=== PATIENT | male | born 1935 | race Caucasian/White ===

== ENCOUNTER → 2016-05-23 | Outpatient (CLI) | payer MEDICARE ==
[~2016-05-23] VITALS: Ht 177.8 cm; Wt 96.1 kg
[~2016-05-23] MED LIST: ASPCH81X PO; ATOR-22 PO; CLIN1CAP51 PO; ENOX40IN SQ; FRS/40 PO; MULT-190 PO; MULT-884 PO; OXYC-57 PO; POTA20TA16 PO; PRED20TA PO; SOTA80TA PO; TRAM-10 PO; WARF2TAB PO; WARF2TAB8 PO; [UNRECOGNIZED DRUG - CODE] INJ
[2016-05-23 13:37] VITALS: BP 130/81; PULSE 87; BMI 32.3
[2016-05-23 13:39] VITALS: BP 132/79; PULSE 56; Ht 177.8 cm; Wt 96.1 kg
== END | disposition home or self-care (01) ==
LOC: C.NEUR 12:40
PROVIDERS: ATTEND Internal Medicine Pulmonary Disease
DX: R91.8 Other nonspecific abnormal finding of lung field (principal); J98.4 Other disorders of lung; G47.30 Sleep apnea, unspecified

== ENCOUNTER → 2016-05-30 | Outpatient (CLI) | payer MEDICARE ==
[~2016-05-30] MED LIST changes: -CLIN1CAP51 PO; -PRED20TA PO; -TRAM-10 PO
[2016-05-30 17:30] LABS: BASO % 0.4 %; BASO ABS # 0.03 K/uL (0-0.2); COMPLETE YES; EOS % 7.9 %; HEMATOCRIT 40.5 % (42-52); IG% 0.1 %; LYMPH % 20.8 %; LYMPH ABS # 1.65 K/uL (1.2-3.4); MEAN CELL VOLUME 91.4 fL (80-100); MEAN CORPUSCULAR HEMOGLOBIN 32.3 pg (25-34); MEAN CORPUSCULAR HGB CONC 35.3 g/dl (32-36); MEAN PLATELET VOLUME 10.6 fL (7.4-10.4); MONO % 21.1 %; NEUT % 49.7 %; PLATELET COUNT 197 K/uL (130-400); RED BLOOD COUNT 4.43 M/uL (4.7-6.1); WHITE BLOOD COUNT 7.93 K/uL (4.8-10.8)
[2016-05-30 17:47] LABS: BLOOD UREA NITROGEN 26 mg/dl (7-18); BUN/CREATININE RATIO 18.4 (10-20); CALCIUM 8.9 mg/dl (8.5-10.1); CARBON DIOXIDE 29 mmol/L (21-32); CHLORIDE 102 mmol/L (98-107); GLUCOSE 99 mg/dl (70-99); POTASSIUM 3.9 mmol/L (3.5-5.1); SODIUM 141 mmol/L (136-145)
== END | disposition home or self-care (01) ==
LOC: C.LAB 16:45
PROVIDERS: ATTEND Surgery
DX: K40.90 Unilateral inguinal hernia, without obstruction or gangrene, not specified as recurrent (principal); Z01.812 Encounter for preprocedural laboratory examination

== ENCOUNTER → 2016-06-08 | Day surgery (SDC) | payer MEDICARE ==
[~2016-06-08] VITALS: Ht 177.8 cm; Wt 94.6 kg
[~2016-06-08] MED LIST changes: +ATROPINE SULFATE 0.1 MG/ML 5ML SYR IV PRN; +BACITRACIN 50000 UNIT VIAL IR ONE; +BUPIVACAINE 0.5 % 5 MG/1 ML MPF 30ML VIAL INJ ONE; +DEXAMETHASONE SOD INJ 4 MG/ML VIAL ONE; +EpHEDrine SULFATE INJ 50 MG/ML AMP IV PRN; +FENTANYL CITRATE INJ 50 MCG/1 ML 2 ML VIAL IV PRN; +FENTANYL CITRATE INJ 50 MCG/1 ML 2 ML VIAL ONE; +FLUMAZENIL 0.1 MG/1 ML 10 ML VIAL IV PRN; +GLYCOPYRROLATE INJ 0.2 MG/ML VIAL ONE; +HYDROmorphone INJ 2 MG/ML SYR/VIAL IV PRN; +LABETALOL HCL IV 5 MG/ML 20ML IV PRN; +LACTATED RINGER'S 1000ML 1,000 ML IV SCH; +LIDOCAINE HCL 2% 2 ML VIAL (20MG/ML) ONE; +MEPERIDINE HCL 25 MG/ML CARP IV PRN; +MoRPHine SULFATE 4 MG/ML 1 ML CARP\\VIAL IV PRN; +NALOXONE HCL 0.4 MG/1 ML VIAL/CARP IV PRN; +NEOSTIGMINE METHYLSULFATE 5 MG/5 ML SYR ONE; +ONDANSETRON INJ 2 MG/ML 2 ML VIAL IV PRN; +ONDANSETRON INJ 2 MG/ML 2 ML VIAL ONE; +OXYCODONE/ACETAMINOPHEN 5-325 TAB PO PRN; +PHENYLEPHRINE 100MCG/ML 5ML SYR IV PRN; +PROPOFOL IV EMULSION 10 MG/ML 20 ML VIAL IV ONE; +ROCURONIUM BROMIDE 10 MG/ML 5 ML VIAL ONE; +SODIUM CHLORIDE 0.9% INJ 10 ML VIAL ONE; +VANCOMYCIN INJ 1,450 MG in SODIUM CHLORIDE 0.9% 500ML 500 ML IV SCH
[2016-06-08 12:33] VITALS: BP 159/73; PULSE 54; TEMP 36.4; O2SAT 99; Ht 177.8 cm; Wt 94.6 kg
--- NOTE | 2016-06-08 13:18 | History & Physical Bridge Note ---
H&P Re-Evaluation Bridge Note: I have examined the patient, reviewed the History & Physical and in the interval since the performance of the History & Physical I have noted the following changes of clinical significance: No changes notedpt marked bedside ecchymosis both sides lower abd from lovenox injection
--- NOTE | 2016-06-08 13:21 | Discharge Instructions ---
Discharge Instructions Visit Reason for Visit: Left Inguinal Hernia Discharge Discharge Diagnosis / Problem: repair of hernia Discharge Goals Goal(s): Decrease discomfort Activity Recommendations Activity Limitations: per Instructions/Follow-up section Lifting Limitations: no more than 10 pounds Shower/Bathe: tomorrow Driving or Machine Use: resume 3 days after discharge Anesthesia . Post Anesthesia Instructions: If you have had General Anesthesia or IV Sedation: * Do not drive today. * Resume driving when surgeon permits. * Do not make important decisions or sign legal documents today. * Call surgeon for: 1. Temperature elevations greater than 101 degrees F. 2. Uncontrollable pain. 3. Excessive bleeding. 4. Persistent nausea and vomiting. 5. Medication intolerance (nausea, vomiting or rash). * For nausea and vomiting use only clear liquids such as: tea, soda, bouillon until nausea subsides, then gradually increase diet as tolerated. * If you have any concerns or questions, call your surgeon's office. If physician is unavailable and it is an emergency, call 911 or go to the nearest emergency room. . Instructions / Follow-Up Instructions / Follow-Up Dr. Doty in 1 week, call [phone] if you have any questions or need to schedule appt Ice left groin off and on alternating every 20 minutes until bedtime Diet Recommendations Recommended Home Diet: no limitations Pending Studies Studies pending at discharge: no Medical Emergencies . Who to Call and When: Medical Emergencies: If at any time you feel your situation is an emergency, please call 911 immediately. . Non-Emergent Contact Non-Emergency issues call your: Surgeon Call Non-Emergent contact if: you have a fever, temperature is above 101.5, your pain is worsening, wound has increased redness, wound has increased pain . . "Provider Documentation" section prepared by Spike Bowen.
[2016-06-08 13:23] LABS: INR 1.1 (0.9-1.1); PARTIAL THROMBOPLASTIN RATIO 0.9; PROTHROMBIN TIME (PATIENT) 11.4 SECONDS (9.0-12.0)
--- NOTE | 2016-06-08 15:03 | [facility] Post Operative Brief Note ---
Immediate Operative Summary Operative Date Jun 08, 2016. 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 Jose Doty Full Stack Engineer Surgeon(s) Spike Bowen PA-C Estimated Blood Loss 5 ml Findings large sliding ind hernia and lipoma cord Specimens Permanent A. Left Lipoma
--- NOTE | 2016-06-08 15:30 | OPERATIVE REPORT ---
DATE OF OPERATION: 06/08/2016 SURGEON: Dr. Doty. WINDING RACK OPERATOR: Srikanth Bowen PA-C. PREOPERATIVE DIAGNOSIS: Large left inguinal hernia. POSTOPERATIVE DIAGNOSIS: Large sliding indirect hernia and lipoma of the cord. PROCEDURES: Repair with interposition tension free Marlex mesh and excision lipoma of the cord. SUMMARY: The patient was brought into the operating room theater. The left lower quadrant was prepped with Betadine scrub and solution and properly draped. We used 0.5% Marcaine without epinephrine as a preemptive local analgesia 2 fingerbreadths medial anterior superior iliac crest to the subfascial and external oblique. An incision was made parallel to the inguinal ligament, deepened through subcutaneous tissue. The external oblique fascia was exposed. More local was used underneath the external oblique, which was opened along with the cords of its fibers along to the external ring. The patient had a very significantly displaced left external ring, which was pretty much under tension from the contents. The nerves identified and avoided. The inferior nerve was placed into the lower aspect of the transversalis of the external oblique fascia underneath hemostats to superior which was a fine filamentous type of nerve, maybe collateral. The anvil angle was then divided out because it was placed under tension. The cord and structures were then elevated. I was able to identify, the patient had a very large indirect hernia. We actually opened the sac and found the sigmoid colon into the hernia. We tried to see if this was free from the contents, but it was a sliding component, therefore, we closed the peritoneum with a chromic suture and freed up this hernia returned preperitoneally by closing the internal ring with 3-0 interrupted silk suture. The patient also had a lipoma of the cord which we freed it from the cord structure, resected at its base, ligated with 2-0 silk. The internal ring was closed loosely with some 3-0 interrupted silk suture to keep the contents out of the way as we were able then to bring in a sheet of Marlex mesh on laid it with #2-0 Prolene to the symphysis pubis, shelving portion of the inguinal ligament above the conjoined tendon to reconstruct the internal ring that could only accommodate the tip of a hemostat. The nerve was placed along the cord structure. The area was then checked for hemostasis and appeared satisfactory. Then we closed the external oblique fascia on top of the cord and the mesh with interrupted 3-0 silk. The external ring was a little bit wide, the tissue was frayed as we said before and that should be kept in mind in the future if someone examines that area they feel that this may be a hernia which indeed is just a wide ring. Subcutaneous tissue was brought back together with 2-0 Dexon and diamond for skin edges. Dressing was applied. The procedure was tolerated well by the patient. Estimated blood loss approximately 5 mL. The patient was taken to the recovery room in good condition. I attest to the content of the Intraoperative Record and any orders documented therein. Any exceptio ns are noted below.
--- NOTE | 2016-06-08 15:46 | Anesthesiology Progress Note ---
Anesthesia Post Op Note Date & Time Jun 08, 2016 at 15:46 Vital Signs Pain Intensity: 2 Vital Signs Past 12 Hours Date Time Temp Pulse Resp B/P Pulse Ox O2 Delivery O2 Flow Rate FiO2 06/08/16 15:45 36.2 68 16 167/83 93 Room Air 06/08/16 15:35 71 16 147/67 93 Room Air 06/08/16 15:25 68 16 158/65 100 Mask 10 06/08/16 15:15 69 16 160/69 100 Mask 10 06/08/16 15:09 36.6 75 16 171/91 100 Mask 10 06/08/16 12:33 36.4 54 20 159/73 99 Room Air Notes Mental Status: alert / awake / arousable, participated in evaluation Pt Amnestic to Procedure: Yes Nausea / Vomiting: adequately controlled Pain: adequately controlled Airway Patency, RR, SpO2: stable & adequate BP & HR: stable & adequate Hydration State: stable & adequate Anesthetic Complications: no major complications apparent
[2016-06-08 15:55] VITALS: BP 150/73; PULSE 63; TEMP 37.1; O2SAT 96
[2016-06-08 16:25] VITALS: BP 128/40; PULSE 73; O2SAT 96
[2016-06-08 16:55] VITALS: BP 147/69; PULSE 72; TEMP 36.1; O2SAT 96
== END | disposition home or self-care (01) ==
LOC: C.ACU 12:22
PROVIDERS: ATTEND Surgery
DX: K40.31 Unilateral inguinal hernia, with obstruction, without gangrene, recurrent (principal); D17.6 Benign lipomatous neoplasm of spermatic cord; I25.10 Atherosclerotic heart disease of native coronary artery without angina pectoris; E78.00 Pure hypercholesterolemia, unspecified; I35.9 Nonrheumatic aortic valve disorder, unspecified; I48.92 Unspecified atrial flutter; N40.1 Benign prostatic hyperplasia with lower urinary tract symptoms; N13.8 Other obstructive and reflux uropathy; J44.9 Chronic obstructive pulmonary disease, unspecified; G47.30 Sleep apnea, unspecified; Z98.890 Other specified postprocedural states; Z95.2 Presence of prosthetic heart valve; Z82.49 Family history of ischemic heart disease and other diseases of the circulatory system; Z79.01 Long term (current) use of anticoagulants

== ENCOUNTER 2016-06-12 09:05 | Emergency (ER) | payer MEDICARE ==
[~2016-06-12] VITALS: Ht 177.8 cm; Wt 79.0 kg
[~2016-06-12 09:05] MED LIST changes: -ASPCH81X PO; -ATOR-22 PO; -ATROPINE SULFATE 0.1 MG/ML 5ML SYR IV PRN; -BACITRACIN 50000 UNIT VIAL IR ONE; -BUPIVACAINE 0.5 % 5 MG/1 ML MPF 30ML VIAL INJ ONE; -DEXAMETHASONE SOD INJ 4 MG/ML VIAL ONE; -EpHEDrine SULFATE INJ 50 MG/ML AMP IV PRN; -FENTANYL CITRATE INJ 50 MCG/1 ML 2 ML VIAL IV PRN; -FENTANYL CITRATE INJ 50 MCG/1 ML 2 ML VIAL ONE; -FLUMAZENIL 0.1 MG/1 ML 10 ML VIAL IV PRN; -FRS/40 PO; -GLYCOPYRROLATE INJ 0.2 MG/ML VIAL ONE; -HYDROmorphone INJ 2 MG/ML SYR/VIAL IV PRN; -LABETALOL HCL IV 5 MG/ML 20ML IV PRN; -LACTATED RINGER'S 1000ML 1,000 ML IV SCH; -LIDOCAINE HCL 2% 2 ML VIAL (20MG/ML) ONE; -MEPERIDINE HCL 25 MG/ML CARP IV PRN; -MULT-190 PO; -MoRPHine SULFATE 4 MG/ML 1 ML CARP\\VIAL IV PRN; -NALOXONE HCL 0.4 MG/1 ML VIAL/CARP IV PRN; -NEOSTIGMINE METHYLSULFATE 5 MG/5 ML SYR ONE; -ONDANSETRON INJ 2 MG/ML 2 ML VIAL IV PRN; -ONDANSETRON INJ 2 MG/ML 2 ML VIAL ONE; -OXYCODONE/ACETAMINOPHEN 5-325 TAB PO PRN; -PHENYLEPHRINE 100MCG/ML 5ML SYR IV PRN; -POTA20TA16 PO; -PROPOFOL IV EMULSION 10 MG/ML 20 ML VIAL IV ONE; -ROCURONIUM BROMIDE 10 MG/ML 5 ML VIAL ONE; -SODIUM CHLORIDE 0.9% INJ 10 ML VIAL ONE; -VANCOMYCIN INJ 1,450 MG in SODIUM CHLORIDE 0.9% 500ML 500 ML IV SCH; -WARF2TAB8 PO; -[UNRECOGNIZED DRUG - CODE] INJ
[2016-06-12 09:19] VITALS: TEMP 36.6; Ht 177.8 cm; Wt 79.0 kg
[2016-06-12] MEDS ORDERED: WARF2TAB8 PO (09:19)
[2016-06-12] MEDS ORDERED: HYDROmorphone INJ 1 MG/ML SYR IV STA ×3 (09:52→13:30)
[2016-06-12] MEDS ORDERED: SODIUM CHLORIDE 0.9% 500ML 500 ML IV STA (09:52)
--- NOTE | 2016-06-12 09:58 | EMERGENCY ROOM VISIT NOTE ---
History Report prepared by Agustin: Gregory Mancilla Under the Supervision of: Dr. Efrain Colbert M.D. First contact with patient: 09:46 Chief Complaint: ABDOMINAL PAIN Stated Complaint: PAIN Nursing Triage Summary: PT HERE VIA ALS FROM HOME WITH ABD PAIN. PT STATES INCREASED PAIN AFTER HAVING HERNIA REPAIR ON SUNDAY BY DR ROBERTSON. PT STATES TOOK OXY AT HOME PRIOR TO ARRIVAL WITH SOME RELIEF. PTS CALLED. ABD TENDER AND DISTENDED. History of Present Illness The patient is a 80 year old male who presents to the Emergency Room via ALS with complaints of severe lower abdominal pain which worsened 2 days ago. He had an inguinal hernia repair surgery 4 days ago. The patient initially had some mild pain. 2 days ago, his pain worsened and became severe. He has been taking Hydrocodone without relief. He has worsening pain with movement. The patient also complains of a swollen scrotum. He denies chest pain, shortness of breath, or any other complaints. He is on Coumadin. He has a history of A-Fib. Source of History: patient Onset: 2 days ago Position: abdomen (lower) Symptom Intensity: severe Timing: worsening Modifying Factors (Worsening): movement Associated Symptoms: No SOB, No chest pain Review of Systems See HPI for pertinent positives & negatives. A total of 10 systems reviewed and were otherwise negative. Past Medical & Surgical Medical Problems: (1) A-fib (2) CHF (congestive heart failure) (3) Dehydration (4) History of Coumadin therapy (5) Replacement of aortic valve Family History Patient reports no known family medical history. Social History Smoking Status: Never Smoker Alcohol Use: occasionally Drug Use: none Marital Status: Housing Status: lives with family Current/Historical Medications Scheduled Aspirin (Aspirin Chewable), 81 MG PO DAILY Atorvastatin (Lipitor), 20 MG PO DAILY Furosemide (Lasix), 40 MG PO DAILY Multiple Vitamin (Multi Vitamin Daily), 1 TAB PO DAILY Ocuvite Preservision (Ocuvite Preservision), 1 TAB PO DAILY Potassium Ext Rel (Klor-Con), 20 MEQ PO DAILY Ranibizumab (Lucentis), 1 DOSE INJ [id number] Sotalol Hcl (Sotalol Hcl), 0.5 TAB PO DAILY Warfarin Sod (Jantoven), 6 MG PO DAILY Scheduled PRN Oxycodone/Acetaminophen 5MG/325MG (Percocet 5MG/325MG), 1-2 TABLETS PO Q4H PRN for Pain Oxycodone/Acetaminophen 5MG/325MG (Percocet 5MG/325MG), 1-2 TABLETS PO Q4H PRN for Pain Allergies Coded Allergies: Celecoxib (Verified Allergy, Unknown, ., 06/12/16) Cyclobenzaprine (Verified Allergy, Unknown, ., 06/12/16) Penicillins (Verified Allergy, Unknown, RASH, 06/12/16) Simvastatin (Verified Adverse Reaction, Intermediate, MUSCLE PAIN, 06/12/16 ) Physical Exam Vital Signs Date Time Temp Pulse Resp B/P Pulse Ox O2 Delivery O2 Flow Rate FiO2 06/12/16 15:15 88 16 165/74 95 06/12/16 13:19 74 16 175/81 97 Room Air 06/12/16 11:21 77 18 126/63 96 Room Air 06/12/16 09:19 36.6 71 16 145/63 96 Room Air Physical Exam CONSTITUTIONAL: HEENT: No icterus, moist mucous membranes NECK: No meningismus, trachea is midline. CARDIOVASCULAR: Regular rate, normal perfusion RESPIRATORY: Unlabored breathing. Clear to auscultation. GASTROINTESTINAL: Moderate diffuse lower abdominal pain with extensive ecchymosis inferiorly. Surgical incision clean, dry, and intact, without any signs of infection. GENITOURINARY: No flank tenderness. Some edema and erythema of scrotum. MUSCULOSKELETAL: Full range of motion NEUROLOGIC: No acute gross focal deficits. PSYCHIATRIC: Normal affect SKIN: Normal for ethnicity. Medical Decision & Procedures ER Provider Diagnostic Interpretation: CT results as stated below per my review and radiologist interpretation. ABDOMEN AND PELVIS CT WITH IV AND ORAL CONTRAST CT DOSE: 977.69 mGycm HISTORY: Status post inguinal hernia repair, increasing left lower quadrant abdominal pain TECHNIQUE: Multiaxial CT images of the abdomen and pelvis were performed following the use of intravenous and oral contrast. COMPARISON STUDY: Abdomen and pelvis CT 07/22/2010. FINDINGS: Small right pleural effusion. The heart is mildly enlarged. Stable benign 4 mm pulmonary nodule within the left lower lobe. No pneumoperitoneum. No pneumatosis. No hepatic or splenic masses. The gallbladder, pancreas, spleen, left kidney are within normal limits. There are 2 cysts within the right kidney with the largest measuring 8.4 cm. Normal caliber thoracic aorta. Stable enlarged and partially calcified right retrocrural lymph node which measures 1.7 cm. Therefore, this is likely benign given the long-term stability. No mesenteric lymphadenopathy. Multiple prominent retroperitoneal lymph nodes. Dominant lymph node measures 1.9 x 1.2 cm. These are also not significant changed. Therefore, the long-term stability favors a benign process. The bladder is unremarkable. Evidence for prior right inguinal herniorrhaphy. There are surgical clips and stranding within the left inguinal region. There is also a small amount of gas and a 2 cm hyperdense focus at the mid left inguinal canal. This favors a small hematoma. Small amount of subcutaneous gas within the left lateral abdominal wall. Colonic diverticulosis. No bowel wall thickening or obstruction. Fat stranding adjacent to the proximal sigmoid colon is likely due to the hernia repair. There are no inflamed diverticula identified to suggest acute diverticulitis. Moderate stool within the rectum. Normal appendix. No bowel wall thickening or obstruction. IMPRESSION: 1. Status post recent left inguinal herniorrhaphy. Fat stranding and a small amount of gas within the left inguinal canal is likely due to the recent postoperative change. There is also a 2 cm focal hyperdense area within the mid left inguinal canal which favors a hematoma. 2. No bowel wall thickening or obstruction. 3. Colonic diverticulosis. Fat stranding adjacent to the proximal sigmoid colon is likely due to the adjacent hernia repair. There are no inflamed diverticula identified to suggest acute diverticulitis. However, if the patient symptoms continue to progress then consider repeat scanning to exclude the less likely possibility of developing acute diverticulitis. 4. Normal appendix. 5. Small right pleural effusion. 6. Stable prominent retroperitoneal lymph nodes. The longterm stability favors a benign process. Electronically signed by: Andrea Sahu M.D. 06/12/2016 1:48 PM Dictated Date/Time: 06/12/2016 1:34 PM Laboratory Results 06/12/16 10:05 Red Blood Count 4.32, Mean Corpuscular Volume 92.4, Mean Corpuscular Hemoglobin 32.2, Mean Corpuscular Hemoglobin Concent 34.8, Mean Platelet Volume 10.8, Neutrophils (%) (Auto) 66.1, Lymphocytes (%) (Auto) 10.4, Monocytes (%) (Auto) 20.9, Eosinophils (%) (Auto) 2.2, Basophils (%) (Auto) 0.2, Neutrophils # (Auto ) 7.71, Lymphocytes # (Auto) 1.21, Monocytes # (Auto) 2.43, Eosinophils # (Auto ) 0.26, Basophils # (Auto) 0.02 06/12/16 10:05 Test 06/12/16 10:05 06/12/16 14:01 White Blood Count 11.65 K/uL (4.8-10.8) Red Blood Count 4.32 M/uL (4.7-6.1) Hemoglobin 13.9 g/dL (14.0-18.0) Hematocrit 39.9 % (42-52) Mean Corpuscular Volume 92.4 fL (80-100) Mean Corpuscular Hemoglobin 32.2 pg (25-34) Mean Corpuscular Hemoglobin Concent 34.8 g/dl (32-36) Platelet Count 198 K/uL (130-400) Mean Platelet Volume 10.8 fL (7.4-10.4) Neutrophils (%) (Auto) 66.1 % Lymphocytes (%) (Auto) 10.4 % Monocytes (%) (Auto) 20.9 % Eosinophils (%) (Auto) 2.2 % Basophils (%) (Auto) 0.2 % Neutrophils # (Auto) 7.71 K/uL (1.4-6.5) Lymphocytes # (Auto) 1.21 K/uL (1.2-3.4) Monocytes # (Auto) 2.43 K/uL (0.11-0.59) Eosinophils # (Auto) 0.26 K/uL (0-0.5) Basophils # (Auto) 0.02 K/uL (0-0.2) RDW Standard Deviation 46.9 fL (36.4-46.3) RDW Coefficient of Variation 13.7 % (11.5-14.5) Immature Granulocyte % (Auto) 0.2 % Immature Granulocyte # (Auto) 0.02 K/uL (0.00-0.02) Prothrombin Time 19.6 SECONDS (9.0-12.0) Prothromb Time International Ratio 1.8 (0.9-1.1) Activated Partial Thromboplast Time 47.1 SECONDS (21.0-31.0) Partial Thromboplastin Ratio 1.8 Anion Gap 6.0 mmol/L (3-11) Est Creatinine Clear Calc Drug Dose 47.6 ml/min Estimated GFR () 60.1 Estimated GFR (Non- 51.9 BUN/Creatinine Ratio 17.8 (10-20) Calcium Level 9.4 mg/dl (8.5-10.1) Urine Color YELLOW Urine Appearance CLEAR (CLEAR) Urine pH 5.0 (4.5-7.5) Urine Specific [place] > 1.045 (1.000-1.030) Urine Protein TRACE (NEG) Urine Glucose (UA) NEG (NEG) Urine Ketones NEG (NEG) Urine Occult Blood 2+ (NEG) Urine Nitrite NEG (NEG) Urine Bilirubin NEG (NEG) Urine Urobilinogen NEG (NEG) Urine Leukocyte Esterase NEG (NEG) Urine WBC (Auto) 1-5 /hpf (0-5) Urine RBC (Auto) 5-10 /hpf (0-4) Urine Hyaline Casts (Auto) 0 /lpf (0-5) Urine Epithelial Cells (Auto) 5-10 /lpf (0-5) Urine Bacteria (Auto) NEG (NEG) Labs reviewed by ED physician. Medications Administered Medications (Trade) Dose Ordered Sig/Salvatore Route Start Time Stop Time Status Last Admin Dose Admin Sodium Chloride (Nss 500ml) 500 ml @ 999 mls/hr Q31M STAT IV 06/12/16 09:52 06/12/16 10:22 DC 06/12/16 10:25 999 MLS/HR Hydromorphone HCl (Dilaudid Inj) 1 mg PRN STAT IV 06/12/16 09:52 06/12/16 09:54 DC 06/12/16 10:23 1 MG Hydromorphone HCl (Dilaudid Inj) 1 mg PRN STAT IV 06/12/16 09:52 06/12/16 09:54 DC 06/12/16 13:46 1 MG ED Course 0946: Past medical records reviewed. The patient was evaluated in room B10. A complete history and physical examination was performed. 0952: Dilaudid inj 1 mg IV, Dilaudid Inj 1 mg IV, Sodium Chloride 500 ml @ 999 mls/hr IV 1330: Dilaudid Inj 1 mg IV 1501: I reevaluated the patient who is resting comfortably. Medical Decision Differential diagnosis includes but is not limited to post surgical complications such as bleeding, infection, diverticulitis, UTI. 80 y/o presented to ED for L inguinal/abd pain s/p inguinal hernia repair. Moderate tenderness and fullness with normal CT imaging in ED today. Patient states he had no pain medications for home use. Rx :Percocet. Patient comfortable prior to discharge and in agreement with plan. Impression Primary Impression: Pain Scribe Attestation The scribe's documentation has been prepared under my direction and personally reviewed by me in its entirety. I confirm that the note above accurately reflects all work, treatment, procedures, and medical decision making performed by me. Departure Information Prescriptions Oxycodone/Acetaminophen 5MG/325MG (PERCOCET 5MG/325MG) Tab 1-2 TABLETS PO Q4H Y for Pain, #20 TAB Prov: Efrain Colbert MD 06/12/16 Referrals Deric Wilkes M.D. (PCP) Patient Instructions My [facility]
[2016-06-12 10:38] LABS: BASO % 0.2 %; BASO ABS # 0.02 K/uL (0-0.2); COMPLETE YES; EOS % 2.2 %; HEMATOCRIT 39.9 % (42-52); IG% 0.2 %; LYMPH % 10.4 %; LYMPH ABS # 1.21 K/uL (1.2-3.4); MEAN CELL VOLUME 92.4 fL (80-100); MEAN CORPUSCULAR HEMOGLOBIN 32.2 pg (25-34); MEAN CORPUSCULAR HGB CONC 34.8 g/dl (32-36); MEAN PLATELET VOLUME 10.8 fL (7.4-10.4); MONO % 20.9 %; NEUT % 66.1 %; PLATELET COUNT 198 K/uL (130-400); RED BLOOD COUNT 4.32 M/uL (4.7-6.1); WHITE BLOOD COUNT 11.65 K/uL (4.8-10.8)
[2016-06-12 10:52] LABS: BUN/CREATININE RATIO 17.8 (10-20); CALCIUM 9.4 mg/dl (8.5-10.1); CREATININE 1.3 mg/dl (0.60-1.40); POTASSIUM 4.2 mmol/L (3.5-5.1)
[2016-06-12 10:55] LABS: INR 1.8 (0.9-1.1); PARTIAL THROMBOPLASTIN RATIO 1.8; PROTHROMBIN TIME (PATIENT) 19.6 SECONDS (9.0-12.0)
[2016-06-12] MEDS ORDERED: OPTIRAY 320 IV PRN (13:15)
--- NOTE | 2016-06-12 13:50 | DIAGNOSTIC IMAGING REPORT ---
ABDOMEN AND PELVIS CT WITH IV AND ORAL CONTRAST CT DOSE: 977.69 mGycm HISTORY: Status post inguinal hernia repair, increasing left lower quadrant abdominal pain TECHNIQUE: Multiaxial CT images of the abdomen and pelvis were performed following the use of intravenous and oral contrast. COMPARISON STUDY: Abdomen and pelvis CT 07/22/2010. FINDINGS: Small right pleural effusion. The heart is mildly enlarged. Stable benign 4 mm pulmonary nodule within the left lower lobe. No pneumoperitoneum. No pneumatosis. No hepatic or splenic masses. The gallbladder, pancreas, spleen, left kidney are within normal limits. There are 2 cysts within the right kidney with the largest measuring 8.4 cm. Normal caliber thoracic aorta. Stable enlarged and partially calcified right retrocrural lymph node which measures 1.7 cm. Therefore, this is likely benign given the long-term stability. No mesenteric lymphadenopathy. Multiple prominent retroperitoneal lymph nodes. Dominant lymph node measures 1.9 x 1.2 cm. These are also not significant changed. Therefore, the long-term stability favors a benign process. The bladder is unremarkable. Evidence for prior right inguinal herniorrhaphy. There are surgical clips and stranding within the left inguinal region. There is also a small amount of gas and a 2 cm hyperdense focus at the mid left inguinal canal. This favors a small hematoma. Small amount of subcutaneous gas within the left lateral abdominal wall. Colonic diverticulosis. No bowel wall thickening or obstruction. Fat stranding adjacent to the proximal sigmoid colon is likely due to the hernia repair. There are no inflamed diverticula identified to suggest acute diverticulitis. Moderate stool within the rectum. Normal appendix. No bowel wall thickening or obstruction. IMPRESSION: 1. Status post recent left inguinal herniorrhaphy. Fat stranding and a small amount of gas within the left inguinal canal is likely due to the recent postoperative change. There is also a 2 cm focal hyperdense area within the mid left inguinal canal which favors a hematoma. 2. No bowel wall thickening or obstruction. 3. Colonic diverticulosis. Fat stranding adjacent to the proximal sigmoid colon is likely due to the adjacent hernia repair. There are no inflamed diverticula identified to suggest acute diverticulitis. However, if the patient symptoms continue to progress then consider repeat scanning to exclude the less likely possibility of developing acute diverticulitis. 4. Normal appendix. 5. Small right pleural effusion. 6. Stable prominent retroperitoneal lymph nodes. The exterminator helper termite stability favors a benign process. Electronically signed by: Andrea Sahu M.D. 06/12/2016 1:48 PM Dictated Date/Time: 06/12/2016 1:34 PM
[2016-06-12] MEDS ORDERED: OXYC-57 PO (14:50)
[2016-06-12 14:54] LABS: URINE APPEARANCE CLEAR (CLEAR); URINE BILIRUBIN NEG (NEG); URINE COLOR YELLOW; URINE NITRITE NEG (NEG); URINE SPECIFIC GRAVITY > 1.045 (1.000-1.030); UROBILINOGEN NEG (NEG); ZZUR CULT IF INDIC CLEAN CATCH NO
[2016-06-12 15:00] LABS: MANUAL MICROSCOPIC REQUIRED? NO; REVIEW REQ? NO
[2016-06-12 15:15] VITALS: BP 165/74; PULSE 88; O2SAT 95
[2016-06-12] MEDS ORDERED: MULT-190 PO (15:36)
[2016-06-12] MEDS ORDERED: [UNRECOGNIZED DRUG - CODE] INJ (15:36)
[2016-06-12] MEDS ORDERED: ASPCH81X PO (16:07)
[2016-06-12] MEDS ORDERED: ATOR-22 PO (16:07)
[2016-06-12] MEDS ORDERED: FRS/40 PO (21:25)
[2016-06-12] MEDS ORDERED: POTA20TA16 PO (21:25)
== END 2016-06-12 15:16 | disposition home or self-care (01) ==
LOC: EDBD 09:05 → C.EDB 09:07
DX: G89.18 Other acute postprocedural pain (principal); Z88.0 Allergy status to penicillin; I50.9 Heart failure, unspecified; I48.91 Unspecified atrial fibrillation; Z95.2 Presence of prosthetic heart valve; Z79.01 Long term (current) use of anticoagulants

== ENCOUNTER → 2016-08-29 | Outpatient (CLI) | payer MEDICARE ==
[~2016-08-29] MED LIST changes: +ASPCH81X PO; +ATOR-22 PO; -ENOX40IN SQ; +FRS/40 PO; +MULT-190 PO; +POTA20TA16 PO; -WARF2TAB PO; +WARF2TAB8 PO; +[UNRECOGNIZED DRUG - CODE] INJ
[2016-08-29 13:32] LABS: ALT/SGPT 29 U/L (12-78); AST/SGOT 21 U/L (15-37); BLOOD UREA NITROGEN 29 mg/dl (7-18); BUN/CREATININE RATIO 22.3 (10-20); CALCIUM 8.8 mg/dl (8.5-10.1); CARBON DIOXIDE 29 mmol/L (21-32); CHLORIDE 102 mmol/L (98-107); CHOLESTEROL 141 mg/dl (0-200); GLUCOSE 108 mg/dl (70-99); SODIUM 139 mmol/L (136-145)
[2016-08-29 13:34] LABS: ALB/GLOB RATIO 0.8 (0.9-2); ALKALINE PHOSPHATASE 80 U/L (45-117); CHOLESTEROL/HDL RATIO 3.4; HDL CHOLESTEROL 41 mg/dl; TRIGLYCERIDES 141 mg/dl (0-150); VERY LOW DENSITY LIPOPROT CALC 28 mg/dl
[2016-08-29 14:11] LABS: ESTIMATED AVERAGE GLUCOSE 114 mg/dl; HA1C FLAG Normal (Normal)
--- NOTE | 2016-08-30 13:18 | CODING QUERY NO DIAGNOSIS ---
: 1935 TREATMENT RENDERED WITHOUT A DIAGNOSIS To promote full compliance with coding requirements relating to patient care, physician participation is requested in all cases of salt refiner uncertainty. Please assist us with providing a diagnosis/symptom for the test(s) below: A diagnosis/symptom was not documented on your Order. A valid diagnosis/symptom is required to bill all insurances. Please remember that we are unable to code a diagnosis of rule out, probable, possible, questionable, or suspected. Tests that require a diagnosis: DOS: 08/29/16 * Hemoglobin A1C DIAGNOSIS: * Comprehensive Metabolic Panel DIAGNOSIS: * LDL Direct DIAGNOSIS: * Lipid Profile Non Fasting DIAGNOSIS: Provider Signature: Date: Thank you Kavitha Hernandez Health Information Management Once completed, please kindly fax back to [phone] For questions please call [phone]
== END | disposition home or self-care (01) ==
LOC: C.LABSPEC 12:54
PROVIDERS: ATTEND Internal Medicine
DX: H35.30 Unspecified macular degeneration (principal); R73.9 Hyperglycemia, unspecified; E78.5 Hyperlipidemia, unspecified

== ENCOUNTER → 2016-09-01 | Outpatient (CLI) | payer MEDICARE ==
[~2016-09-01] VITALS: Ht 177.8 cm; Wt 94.1 kg
[2016-09-01 14:33] VITALS: BP 126/65; PULSE 69; Ht 177.8 cm; Wt 94.1 kg
== END | disposition home or self-care (01) ==
LOC: C.NEUR 14:22
PROVIDERS: ATTEND Internal Medicine Pulmonary Disease
DX: G47.30 Sleep apnea, unspecified (principal)

== ENCOUNTER → 2017-03-01 | Outpatient (CLI) | payer MEDICARE ==
[~2017-03-01] MED LIST changes: -OXYC-57 PO
[2017-03-01 12:46] LABS: BASO % 0.1 %; BASO ABS # 0.01 K/uL (0-0.2); COMPLETE YES; HEMATOCRIT 41.1 % (42-52); IG% 0.1 %; LYMPH % 17.6 %; LYMPH ABS # 1.19 K/uL (1.2-3.4); MEAN CELL VOLUME 93.2 fL (80-100); MEAN CORPUSCULAR HEMOGLOBIN 31.5 pg (25-34); MEAN CORPUSCULAR HGB CONC 33.8 g/dl (32-36); MEAN PLATELET VOLUME 10.6 fL (7.4-10.4); MONO % 21.3 %; NEUT % 48.9 %; PLATELET COUNT 230 K/uL (130-400); RED BLOOD COUNT 4.41 M/uL (4.7-6.1); WHITE BLOOD COUNT 6.76 K/uL (4.8-10.8)
[2017-03-01 13:10] LABS: ALB/GLOB RATIO 0.9 (0.9-2); AST/SGOT 24 U/L (15-37); BLOOD UREA NITROGEN 29 mg/dl (7-18); CALCIUM 9.3 mg/dl (8.5-10.1); CARBON DIOXIDE 28 mmol/L (21-32); CHLORIDE 106 mmol/L (98-107); CHOLESTEROL 146 mg/dl (0-200); GLUCOSE 84 mg/dl (70-99); POTASSIUM 4.4 mmol/L (3.5-5.1); SODIUM 138 mmol/L (136-145); TRIGLYCERIDES 138 mg/dl (0-150); VERY LOW DENSITY LIPOPROT CALC 28 mg/dl
[2017-03-01 13:11] LABS: ALKALINE PHOSPHATASE 78 U/L (45-117); ALT/SGPT 27 U/L (12-78); CHOLESTEROL/HDL RATIO 3.7; HDL CHOLESTEROL 40 mg/dl
[2017-03-01 14:25] LABS: ESTIMATED AVERAGE GLUCOSE 111 mg/dl; HA1C FLAG Normal (Normal)
== END | disposition home or self-care (01) ==
LOC: C.LABSPEC 12:13
PROVIDERS: ATTEND Internal Medicine
DX: I10 Essential (primary) hypertension (principal); E78.5 Hyperlipidemia, unspecified; I48.91 Unspecified atrial fibrillation; R73.9 Hyperglycemia, unspecified

== ENCOUNTER 2017-04-29 08:01 | Emergency (ER) | payer MEDICARE ==
[2017-04-29 08:09] VITALS: TEMP 36.4; Ht 177.8 cm
[2017-04-29] MEDS ORDERED: TRAMADOL HCL 50 MG TAB PO STA (08:28)
[2017-04-29] MEDS ORDERED: OXYC-57 PO (08:37)
[2017-04-29] MEDS ORDERED: PRED20TA PO (08:37)
[2017-04-29] MEDS ORDERED: TRAM-10 PO (08:37)
--- NOTE | 2017-04-29 08:38 | EMERGENCY ROOM VISIT NOTE ---
History Report prepared by Agustin: Lenny Enriquez Under the Supervision of: Dr. Emmanuel Cheema D.O. First contact with patient: 08:12 Chief Complaint: LEG PAIN,LEG INJURY Stated Complaint: LEFT LEG PAIN History of Present Illness The patient is a 81 year old male who presents to the Emergency Room with complaints of constant left leg pain that began yesterday morning. He rates his pain a 9/10 in severity. His pain is exacerbated with any kind of movement. He notes that these same symptoms happened a couple of weeks ago, however the previous episode was milder than this one. He denies any recent trauma to the leg. Last night, his pain was shooting down his entire leg, but this morning it is only in his left thigh. He denies any abdominal pain or previous trauma/ injury. He has a past medical history of an inguinal hernia repair on his left. 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 Source of History: patient Onset: yesterday morning Position: leg (left) Symptom Intensity: 9/10 Quality: sharp Timing: constant Modifying Factors (Worsening): movement Associated Symptoms: No abdominal pain Note: His pain was intermittently shooting down his entire leg. Review of Systems See HPI for pertinent positives & negatives. A total of 10 systems reviewed and were otherwise negative. Past Medical & Surgical Medical Problems: (1) A-fib (2) CHF (congestive heart failure) (3) Dehydration (4) History of Coumadin therapy (5) Replacement of aortic valve Family History Patient reports no known family medical history. Social History Smoking Status: Never Smoker Alcohol Use: occasionally Drug Use: none Marital Status: Housing Status: lives with family Current/Historical Medications Scheduled Aspirin (Aspirin Chewable), 81 MG PO DAILY Atorvastatin (Lipitor), 20 MG PO DAILY Furosemide (Lasix), 40 MG PO DAILY Multiple Vitamin (Multi Vitamin Daily), 1 TAB PO DAILY Ocuvite Preservision (Ocuvite Preservision), 1 TAB PO DAILY Potassium Ext Rel (Klor-Con), 20 MEQ PO DAILY Ranibizumab (Lucentis), 1 DOSE INJ [id number] Sotalol Hcl (Sotalol Hcl), 0.5 TAB PO DAILY Warfarin Sod (Jantoven), 6 MG PO DAILY Allergies Coded Allergies: Celecoxib (Verified Allergy, Unknown, ., 06/12/16) Cyclobenzaprine (Verified Allergy, Unknown, ., 06/12/16) Penicillins (Verified Allergy, Unknown, RASH, 06/12/16) Simvastatin (Verified Adverse Reaction, Intermediate, MUSCLE PAIN, 06/12/16 ) Physical Exam Vital Signs Date Time Temp Pulse Resp B/P (MAP) Pulse Ox O2 Delivery O2 Flow Rate FiO2 04/29/17 08:09 36.4 72 18 195/74 98 Room Air Physical Exam CONSTITUTIONAL/VITAL SIGNS: Reviewed / noted above. GENERAL: Non-toxic in appearance. INTEGUMENTARY: Warm, dry, and [place]. HEAD: Normocephalic. EYES: without scleral icterus or trauma. ENT/OROPHARYNX: clear and moist. LYMPHADENOPATHY/NECK: Is supple without lymphadenopathy or meningismus. RESPIRATORY: Lungs clear and equal. CARDIOVASCULAR: Regular rate and rhythm. GI/ABDOMEN: Soft and nontender. No organomegaly or pulsatile mass. No rebound or guarding. Normal bowel sounds. EXTREMITIES: Warm and well perfused. BACK: No CVA tenderness. NEUROLOGICAL: Intact without focal deficits. PSYCHIATRIC: normal affect. MUSCULOSKELETAL: Normally developed with good muscle tone. Medical Decision & Procedures ED Course 0812: Previous medical records were reviewed. The patient was evaluated in room A3. A complete history and physical examination was performed. 0850: On reevaluation, the patient is resting. I discussed the results and findings with the patient. He verbalized agreement of the treatment plan. He was discharged home. Medical Decision Differential diagnosis: Etiologies such as fracture, dislocation, neurovascular compromise, compartment syndrome, soft tissue injury, as well as others were entertained. This is an 81-year-old male who presents to the ED with a chief complaint of left inner thigh pain. The patient states that he noticed pain yesterday morning. He states that his pain is increased with movement. He denies any specific injuries. Does have a history of left inguinal hernia repair with mesh. The patient's initial vital signs reveal hypertension. He was referred back to his PCP to have this checked. This could be exaggerated due to pain. The patient's exam reveals discomfort in the right inguinal/in her thigh area with movements that cause constriction of the inner thigh muscles. There is no palpable abnormalities. He is minimal tenderness to palpation of the left inner thigh musculature. There is no obvious hernias. Testicular exam did not reveal any abnormalities. There are no rashes or erythema. There is no increased warmth. The joint itself appears to be without discomfort with movement. The knee joint also has range of motion without discomfort. The patient's abdominal exam did not show any tenderness in the lower quadrants. After examining the patient, I suspect this is a muscular cause. He was given a dose of Ultram here. Discharged on Ultram for pain and Percocet for severe pain and a short course of prednisone. He was told to follow-up with his PCP if symptoms don't improve over the next several days. He will return for any new findings or worsening. Medication Reconcilliation Current Medication List: was personally reviewed by me Blood Pressure Screening Patient's blood pressure: Elevated blood pressure Blood pressure disposition: Referred to PCP Impression Primary Impression: Left thigh pain Scribe Attestation The scribe's documentation has been prepared under my direction and personally reviewed by me in its entirety. I confirm that the note above accurately reflects all work, treatment, procedures, and medical decision making performed by me. Departure Information Dispostion Home / Self-Care Prescriptions Prednisone (Prednisone) 20 Mg Tab 2 TAB PO DAILY for 3 Days, #6 TAB Prov: Emmanuel Cheema D.O. 04/29/17 Oxycodone/Acetaminophen 5MG/325MG (PERCOCET 5MG/325MG) Tab 1 TAB PO Q6H Y for Pain, #20 TAB Prov: Emmanuel Cheema D.O. 04/29/17 Tramadol (Ultram) 50 Mg Tab 100 MG PO Q4H Y for Pain, #30 TAB Prov: Emmanuel Cheema D.O. 04/29/17 Referrals Deric Wilkes M.D. (PCP) Patient Instructions My [facility] Additional Instructions The exact cause of her pain is unclear. It is felt to be muscular in nature. If this is the case, symptoms should improve with time. Ultram as prescribed for pain. Percocet as prescribed for severe pain. No driving within 6 hours of use. Do not take additional Tylenol while taking Percocet. Prednisone as prescribed. Follow-up with your doctor in 3 days if symptoms persist or return here for worsening or new concerns.
[2017-04-29] MEDS ORDERED: SOTA80TA PO (08:47)
[2017-04-29 09:06] VITALS: BP 125/75; PULSE 60; O2SAT 100
== END 2017-04-29 09:10 | disposition home or self-care (01) ==
LOC: C.EDB 08:04 → C.EDA 09:10
DX: M79.652 Pain in left thigh (principal); I48.91 Unspecified atrial fibrillation; Z79.01 Long term (current) use of anticoagulants; Z95.2 Presence of prosthetic heart valve

== ENCOUNTER → 2017-05-25 | Outpatient (CLI) | payer MEDICARE ==
[~2017-05-25] VITALS: Ht 177.8 cm; Wt 95.3 kg
[~2017-05-25] MED LIST changes: +OXYC-57 PO; +POTA-639 PO; -POTA20TA16 PO; +PRED10TA PO; +TRAM-10 PO; +VLTG EXT; +WARF4TAB43 PO
[2017-05-25 13:17] VITALS: BP 129/76; PULSE 71; Ht 177.8 cm; Wt 95.3 kg
== END | disposition home or self-care (01) ==
LOC: C.NEUR 12:56
PROVIDERS: ATTEND Internal Medicine Pulmonary Disease
DX: G47.30 Sleep apnea, unspecified (principal); R91.8 Other nonspecific abnormal finding of lung field; I35.9 Nonrheumatic aortic valve disorder, unspecified; J98.4 Other disorders of lung

== ENCOUNTER 2017-06-10 07:32 | Inpatient (IN) | payer MEDICARE, OTHER ==
[~2017-06-10] VITALS: Ht 177.8 cm; Wt 90.6 kg
[~2017-06-10 07:32] MED LIST changes: -POTA-639 PO; +POTA20TA16 PO; -PRED10TA PO; -VLTG EXT; -WARF4TAB43 PO
--- NOTE | 2017-06-10 07:45 | EMERGENCY ROOM VISIT NOTE ---
History Report prepared by Agustin: Swati Yee Under the Supervision of: Dr. Emmanuel Manning M.D. First contact with patient: 07:36 Stated Complaint: NECK PAIN History of Present Illness The patient is a 81 year old male who presents to the Emergency Room with complaints of constant neck pain beginning at 1200 yesterday. Per nursing staff , the patient has chronic neck pain and takes Oxycodone for it. Per nursing staff, the patient was prescribed a muscle relaxer yesterday. Per nursing staff , the patient has not had relief from his neck pain with the medications. Per nursing staff, the patient developed bilateral leg pain this morning and was unable to get out of bed, so he slid out of bed. Nursing staff states that he was unable to get out and his called the ambulance when she got home. The patient states that he is on Coumadin. Source of History: patient, nursing staff Onset: 1200 yesterday Position: neck Quality: other (chronic pain ) Timing: constant Note: additional symptom: bilateral leg pain Review of Systems See HPI for pertinent positives & negatives. A total of 10 systems reviewed and were otherwise negative. Past Medical & Surgical Medical Problems: (1) A-fib (2) CHF (congestive heart failure) (3) Dehydration (4) History of Coumadin therapy (5) Leukocytosis (6) Neck pain (7) Nuchal rigidity (8) Replacement of aortic valve Family History Patient reports no known family medical history. Social History Smoking Status: Never Smoker Alcohol Use: occasionally Drug Use: none Marital Status: Housing Status: lives with family Current/Historical Medications Scheduled Aspirin (Aspirin Chewable), 81 MG PO DAILY Atorvastatin (Lipitor), 20 MG PO DAILY Furosemide (Lasix), 40 MG PO DAILY Multiple Vitamin (Multi Vitamin Daily), 1 TAB PO DAILY Ocuvite Preservision (Ocuvite Preservision), 1 TAB PO DAILY Potassium Ext Rel (Klor-Con), 20 MEQ PO DAILY Ranibizumab (Lucentis), 1 DOSE INJ [id number] Sotalol Hcl (Sotalol Hcl), 40 MG PO DAILY Warfarin Sod (Jantoven), 6 MG PO [id number] Warfarin Sodium (Warfarin Sodium), 8 MG PO 2XWK Scheduled PRN Tramadol (Ultram), 100 MG PO Q4H PRN for Pain Allergies Coded Allergies: Celecoxib (Verified Allergy, Unknown, ., 06/12/16) Cyclobenzaprine (Verified Allergy, Unknown, ., 06/12/16) Penicillins (Verified Allergy, Unknown, RASH, 06/10/17) Simvastatin (Verified Adverse Reaction, Intermediate, MUSCLE PAIN, 06/10/17 ) Physical Exam Vital Signs Date Time Temp Pulse Resp B/P (MAP) Pulse Ox O2 Delivery O2 Flow Rate FiO2 06/10/17 13:07 77 16 123/73 98 Room Air 06/10/17 12:16 85 16 130/72 95 Room Air 06/10/17 10:29 96 20 132/83 95 Room Air 06/10/17 08:31 76 06/10/17 08:21 136/63 06/10/17 08:20 96 Room Air 06/10/17 08:20 96 Room Air 06/10/17 07:52 37.1 78 18 124/53 95 Room Air Physical Exam GENERAL: Patient is a healthy-appearing well-nourished male HEAD: Normocephalic atraumatic EYES: Ocular movements intact pupils equal and react to light OROPHARYNX mucous membranes are moist no exudates present no erythema or edema present NECK: Supple no nuchal rigidity CHEST: Good equal expansion LUNGS: Clear and equal to auscultation CARDIAC: Grade 2/6 systolic murmur ABDOMEN: Soft nontender no guarding BACK: No CVA tenderness EXTREMITIES: No pain upon palpation normal muscle strength in all groups no clubbing cyanosis or edema NEURO: Acutely confused. Patient only knows where he is. Cranial Nerves 2-12 grossly intact Medical Decision & Procedures ER Provider Diagnostic Interpretation: Radiology results as stated below per my review and radiologist interpretation: PELVIS 1 OR 2 VIEW ROUTINE HISTORY: 81 years-old Male Pt c/o b/l hip pain acute bilateral hip pain COMPARISON: Bilateral femur radiographs of same day, CT abdomen and pelvis 06/12/2016 TECHNIQUE: Single AP view of the pelvis FINDINGS: Surgical clips and coils project over the bilateral inguinal regions. Moderate degenerative changes of the bilateral hips with right hip chondrocalcinosis. No pelvic ring fracture identified. The bones appear mildly demineralized. Sacrum appears intact. Degenerative changes are seen within the lower lumbar spine. Vascular calcifications noted. IMPRESSION: No acute fracture or subluxation. The above report was generated using voice recognition software. It may contain grammatical, syntax or spelling errors. Electronically signed by: Kyle Pinzon M.D. 06/10/2017 9:20 AM Dictated Date/Time: 06/10/2017 9:18 AM HEAD WITHOUT CONTRAST (CT) CLINICAL HISTORY: 81 years-old Male with Pt c/o AMS. Acute altered mental status with neck pain TECHNIQUE: Multiple axial CT images of the head were obtained without contrast. A dose lowering technique was utilized adhering to the principles of ALARA. COMPARISON: CT cervical spine of same day. FINDINGS: No acute intracranial hemorrhage, midline shift, intracranial mass, hydrocephalus, territorial ischemia or abnormal extra-axial collection. Mild atrophy with ex vacuo ventriculomegaly. Vascular calcifications are seen at the level of the skull base. The calvarium is intact. The mastoid air cells, and middle ear cavities are clear. Mild mucosal thickening of the ethmoid air cells. Bilateral cuong bullosa. IMPRESSION: No acute intracranial abnormality identified. The above report was generated using voice recognition software. It may contain grammatical, syntax or spelling errors. Electronically signed by: Kyle Pinzon M.D. 06/10/2017 8:50 AM Dictated Date/Time: 06/10/2017 8:48 AM L FEMUR 2 VIEWS ROUTINE, R FEMUR 2 VIEWS ROUTINE HISTORY: 81 years-old Male Pt c/o b/l hip pain acute bilateral hip pain COMPARISON: Pelvis radiograph of same day, CT abdomen and pelvis 06/12/2016 TECHNIQUE: 2 views of the bilateral femora FINDINGS: LEFT: Surgical clips project over the left femoral acetabular joint and left proximal tibia. Small knee joint effusion. No acute fracture or subluxation identified. Moderate general changes of the left hip. Degenerative changes also seen about the left knee. Soft tissues are unremarkable. Peripheral vascular disease. RIGHT: Small joint effusion. Degenerative changes are noted about the knee with moderate degenerative changes of the right hip. Chondrocalcinosis is also seen about the right femoral acetabular joint. There is no acute fracture or subluxation identified. Surgical clips and coils project over the right pelvis. IMPRESSION: 1. No acute fracture or subluxation of the bilateral femora. 2. Moderate degenerative changes of the bilateral hips. 3. Peripheral vascular disease. 4. Small bilateral knee joint effusions. The above report was generated using voice recognition software. It may contain grammatical, syntax or spelling errors. Electronically signed by: Kyle Pinzon M.D. 06/10/2017 9:18 AM Dictated Date/Time: 06/10/2017 9:15 AM L FEMUR 2 VIEWS ROUTINE, R FEMUR 2 VIEWS ROUTINE HISTORY: 81 years-old Male Pt c/o b/l hip pain acute bilateral hip pain COMPARISON: Pelvis radiograph of same day, CT abdomen and pelvis 06/12/2016 TECHNIQUE: 2 views of the bilateral femora FINDINGS: LEFT: Surgical clips project over the left femoral acetabular joint and left proximal tibia. Small knee joint effusion. No acute fracture or subluxation identified. Moderate general changes of the left hip. Degenerative changes also seen about the left knee. Soft tissues are unremarkable. Peripheral vascular disease. RIGHT: Small joint effusion. Degenerative changes are noted about the knee with moderate degenerative changes of the right hip. Chondrocalcinosis is also seen about the right femoral acetabular joint. There is no acute fracture or subluxation identified. Surgical clips and coils project over the right pelvis. IMPRESSION: 1. No acute fracture or subluxation of the bilateral femora. 2. Moderate degenerative changes of the bilateral hips. 3. Peripheral vascular disease. 4. Small bilateral knee joint effusions. The above report was generated using voice recognition software. It may contain grammatical, syntax or spelling errors. Electronically signed by: Kyle Pinzon M.D. 06/10/2017 9:18 AM Dictated Date/Time: 06/10/2017 9:15 AM CHEST ONE VIEW PORTABLE HISTORY: 81 years-old Male Pt c/o b/l shoulder pain acute bilateral shoulder pain COMPARISON: Chest radiograph 03/27/2013 TECHNIQUE: Portable AP view of the chest FINDINGS: Cardiac silhouette is again at least moderately enlarged. Atherosclerosis of the aorta. Prior median sternotomy. Cardiac valvular prosthetic device noted. There is no pneumothorax or large pleural effusion. There is pulmonary vascular congestion with trace fluid within the minor fissure. Mild right hemidiaphragmatic elevation with hazy subsegmental bibasilar opacities. Bones appear mildly demineralized. Degenerative changes are seen within the shoulders and spine. Bones appear grossly intact. IMPRESSION: 1. Cardiomegaly and pulmonary vascular congestion without overt pulmonary edema. Trace fluid is noted within the minor fissure. 2. Hazy bibasilar opacities suggest atelectasis. The above report was generated using voice recognition software. It may contain grammatical, syntax or spelling errors. Electronically signed by: Kyle Pinzon M.D. 06/10/2017 9:23 AM Dictated Date/Time: 06/10/2017 9:21 AM CERVICAL SPINE W/O CT DOSE: 1260.29 mGy.cm CLINICAL HISTORY: 81 years-old Male with Pt c/o neck pain . Acute neck pain with altered mental status no reported acute trauma. COMPARISON: None. TECHNIQUE: Multiple axial CT images of the cervical spine were obtained without contrast. A dose lowering technique was utilized adhering to the principles of ALARA. FINDINGS: No acute fracture or subluxation of the cervical spine identified. Mastoid air cells and middle ear cavities are clear. Multilevel degenerative changes of the cervical spine are noted with severe intervertebral disc space narrowing at C4-C5 and C6-C7. Multilevel posterior disc osteophyte complex formations. There is slight reversal the normal cervical lordosis centered at the C4 level. Severe facet arthrosis noted on the left at C2-C3 and also at C5-C6 and on the right at C3-C4 and C7-T1. There is fusion of the left-sided facets at C3-C4 and C7-T1. Evaluation of central canal and foraminal narrowing is better assessed by MRI. Severe right-sided foraminal narrowing is seen at C4-C5 and on the left at C6-C7. Partially calcified pannus is noted posterior to odontoid process measuring 4 mm. Lung apices are clear. Sternotomy wires are partially imaged. Atherosclerosis of the carotid sommer. No focal soft tissue abnormality. IMPRESSION: 1. No acute fracture or subluxation of the cervical spine. 2. Multilevel discogenic degenerative changes and facet arthrosis as above. The above report was generated using voice recognition software. It may contain grammatical, syntax or spelling errors. Electronically signed by: Kyle Pinzon M.D. 06/10/2017 8:55 AM Dictated Date/Time: 06/10/2017 8:50 AM Laboratory Results Test 06/10/17 08:00 06/10/17 08:17 06/10/17 08:26 Immature Granulocyte % (Auto) 0.2 % White Blood Count 13.81 K/uL (4.8-10.8) Red Blood Count 4.28 M/uL (4.7-6.1) Hemoglobin 13.7 g/dL (14.0-18.0) Hematocrit 38.7 % (42-52) Mean Corpuscular Volume 90.4 fL (80-100) Mean Corpuscular Hemoglobin 32.0 pg (25-34) Mean Corpuscular Hemoglobin Concent 35.4 g/dl (32-36) Platelet Count 212 K/uL (130-400) Mean Platelet Volume 10.5 fL (7.4-10.4) Neutrophils (%) (Auto) 80.9 % Lymphocytes (%) (Auto) 4.8 % Monocytes (%) (Auto) 13.7 % Eosinophils (%) (Auto) 0.3 % Basophils (%) (Auto) 0.1 % Neutrophils # (Auto) 11.18 K/uL (1.4-6.5) Lymphocytes # (Auto) 0.66 K/uL (1.2-3.4) Monocytes # (Auto) 1.89 K/uL (0.11-0.59) Eosinophils # (Auto) 0.04 K/uL (0-0.5) Basophils # (Auto) 0.01 K/uL (0-0.2) Immature Granulocyte # (Auto) 0.03 K/uL (0.00-0.02) Total Bilirubin 0.8 mg/dl (0.2-1) Direct Bilirubin 0.2 mg/dl (0-0.2) Aspartate Amino Transf (AST/SGOT) 19 U/L (15-37) Alanine Aminotransferase (ALT/SGPT) 17 U/L (12-78) Alkaline Phosphatase 71 U/L (45-117) Total Protein 8.1 gm/dl (6.4-8.2) Albumin 3.0 gm/dl (3.4-5.0) Thyroid Stimulating Hormone (TSH) 2.210 uIu/ml (0.300-4.500) Bedside Glucose 112 mg/dl (70-99) Urine Color DK YELLOW Urine Appearance CLEAR (CLEAR) Urine pH 5.0 (4.5-7.5) Urine Specific [place] 1.028 (1.000-1.030) Urine Protein 2+ (NEG) Urine Glucose (UA) NEG (NEG) Urine Ketones 2+ (NEG) Urine Occult Blood 2+ (NEG) Urine Nitrite NEG (NEG) Urine Bilirubin NEG (NEG) Urine Urobilinogen NEG (NEG) Urine Leukocyte Esterase NEG (NEG) Urine WBC (Auto) 1-5 /hpf (0-5) Urine RBC (Auto) 0-4 /hpf (0-4) Urine Hyaline Casts (Auto) 5-10 /lpf (0-5) Urine Epithelial Cells (Auto) 10-20 /lpf (0-5) Urine Bacteria (Auto) NEG (NEG) Influenza Type A Antigen Neg for Influ A (NEG) Influenza Type B Antigen Neg for Influ B (NEG) Labs reviewed by ED physician. Medications Administered Medications (Trade) Dose Ordered Sig/Salvatore Route Start Time Stop Time Status Last Admin Dose Admin Hydromorphone HCl (Dilaudid Inj) 0.5 mg NOW STAT IV 06/10/17 09:55 06/10/17 09:57 DC 06/10/17 10:26 0.5 MG Ondansetron HCl (Zofran Inj) 4 mg NOW STAT IV 06/10/17 09:55 06/10/17 09:57 DC 06/10/17 10:25 4 MG Lidocaine (Lidoderm Patch 5%) 1 patch NOW STAT TD 06/10/17 09:55 06/10/17 09:57 DC 06/10/17 10:26 1 PATCH Diazepam (Valium Tab) 5 mg Q8H PRN PO 06/10/17 13:00 07/10/17 12:59 06/10/17 15:33 5 MG Tramadol HCl (Ultram Tab) 100 mg Q4H PRN PO 06/10/17 13:00 07/10/17 12:59 06/11/17 17:30 100 MG ECG Indication: weakness Rate (beats per minute): 74 Rhythm: sinus rhythm Findings: 1st degree AV block, LBBB (incomplete) Change: no significant change Change: Patient's Electrocardiogram interpreted by me. ED Course 0738: Past medical records reviewed. The patient was evaluated in room B3. A complete history and physical examination was performed. 0949: Upon reexamination the patient is resting. I discussed results and treatment plan with the patient. He verbalizes agreement and understanding. [facility] The patient will be evaluated for further management. 0955: Ordered Lidocaine 1 patch TD, Zofran Inj 4 mg IV, Dilaudid Inj 0.5 mg IV. 1011: I discussed the patient's case with Dr. Hawley. Medical Decision Differential diagnosis: Etiologies such as metabolic, infection, hypo/hyperglycemia, electrolyte abnormalities, cardiac sources, intracerebral event, toxicologic, neurologic, as well as others were entertained. This is an 81-year-old male who presents emergency department complaining of neck and head pain. Patient does have an elevation in his white blood count cell count and his pain has not been controlled at home area and his states that the patient was walking in and out of bed last night until he sat down this morning and could not get out of bed. He was given Dilaudid here in the emergency department sent for CAT scan of the head this did not show any acute process. Due to the patient's elevation in his white blood count cell count and his confusion I did discuss the case with the hospitalist service who agreed to admit the patient. Patient and are in agreement with the treatment plan. Medication Reconcilliation Current Medication List: was personally reviewed by me Blood Pressure Screening Patient's blood pressure: Low blood pressure will be monitored by hospitalist Consults Time Called: 0850 Consulting Physician: Dr. Karolyn Gilbert Returned Call: 0949 I discussed the patient's case with Dr. Guzmán, She has agreed to evaluate the patient for further management and care. Additional Consults: Time Called: 1000 Consulted Physician: Dr. Manuel Gilbert [facility] Returned Call: [phone] Additional Comments: I discussed the patient's case with Dr. Hawley. Impression Primary Impression: Altered mental status Additional Impression: Weakness Scribe Attestation The scribe's documentation has been prepared under my direction and personally reviewed by me in its entirety. I confirm that the note above accurately reflects all work, treatment, procedures, and medical decision making performed by me. Departure Information Dispostion Being Evaluated By Hospitalist Referrals Deric Wilkes M.D. (PCP) Problem Qualifiers Primary Impression: Altered mental status Altered mental status type: unspecified Qualified Codes: R41.82 - Altered mental status, unspecified
[2017-06-10 08:19] LABS: BASO % 0.1 %; BASO ABS # 0.01 K/uL (0-0.2); EOS % 0.3 %; EOS ABS # 0.04 K/uL (0-0.5); HEMATOCRIT 38.7 % (42-52); HEMOGLOBIN 13.7 g/dL (14.0-18.0); IG# 0.03 K/uL (0.00-0.02); LYMPH % 4.8 %; LYMPH ABS # 0.66 K/uL (1.2-3.4); MEAN CELL VOLUME 90.4 fL (80-100); MEAN CORPUSCULAR HGB CONC 35.4 g/dl (32-36); MEAN PLATELET VOLUME 10.5 fL (7.4-10.4); MONO % 13.7 %; MONO ABS # 1.89 K/uL (0.11-0.59); NEUT % 80.9 %; NEUT ABS # 11.18 K/uL (1.4-6.5); PLATELET COUNT 212 K/uL (130-400); RED CELL DISTRIBUTION WIDTH CV 13.4 % (11.5-14.5); RED CELL DISTRIBUTION WIDTH SD 44.4 fL (36.4-46.3); WHITE BLOOD COUNT 13.81 K/uL (4.8-10.8)
[2017-06-10 08:35] LABS: ALT/SGPT 17 U/L (12-78); BLOOD UREA NITROGEN 29 mg/dl (7-18); CALCIUM 8.9 mg/dl (8.5-10.1); CARBON DIOXIDE 26 mmol/L (21-32); CREATININE 1.33 mg/dl (0.60-1.40); GLUCOSE 119 mg/dl (70-99); POTASSIUM 3.9 mmol/L (3.5-5.1); SODIUM 131 mmol/L (136-145)
[2017-06-10 08:46] LABS: ALKALINE PHOSPHATASE 71 U/L (45-117); AST/SGOT 19 U/L (15-37); CKMB 1.2 ng/ml (0.5-3.6); TOTAL PROTEIN 8.1 gm/dl (6.4-8.2)
--- NOTE | 2017-06-10 08:52 | DIAGNOSTIC IMAGING REPORT ---
HEAD WITHOUT CONTRAST (CT) CLINICAL HISTORY: 81 years-old Male with Pt c/o AMS. Acute altered mental status with neck pain TECHNIQUE: Multiple axial CT images of the head were obtained without contrast. A dose lowering technique was utilized adhering to the principles of ALARA. COMPARISON: CT cervical spine of same day. FINDINGS: No acute intracranial hemorrhage, midline shift, intracranial mass, hydrocephalus, territorial ischemia or abnormal extra-axial collection. Mild atrophy with ex vacuo ventriculomegaly. Vascular calcifications are seen at the level of the skull base. The calvarium is intact. The mastoid air cells, and middle ear cavities are clear. Mild mucosal thickening of the ethmoid air cells. Bilateral cuong bullosa. IMPRESSION: No acute intracranial abnormality identified. The above report was generated using voice recognition software. It may contain grammatical, syntax or spelling errors. Electronically signed by: Kyle Pinzon M.D. 06/10/2017 8:50 AM Dictated Date/Time: 06/10/2017 8:48 AM
--- NOTE | 2017-06-10 08:56 | DIAGNOSTIC IMAGING REPORT ---
CERVICAL SPINE W/O CT DOSE: 1260.29 mGy.cm CLINICAL HISTORY: 81 years-old Male with Pt c/o neck pain . Acute neck pain with altered mental status no reported acute trauma. COMPARISON: None. TECHNIQUE: Multiple axial CT images of the cervical spine were obtained without contrast. A dose lowering technique was utilized adhering to the principles of ALARA. FINDINGS: No acute fracture or subluxation of the cervical spine identified. Mastoid air cells and middle ear cavities are clear. Multilevel degenerative changes of the cervical spine are noted with severe intervertebral disc space narrowing at C4-C5 and C6-C7. Multilevel posterior disc osteophyte complex formations. There is slight reversal the normal cervical lordosis centered at the C4 level. Severe facet arthrosis noted on the left at C2-C3 and also at C5-C6 and on the right at C3-C4 and C7-T1. There is fusion of the left-sided facets at C3-C4 and C7-T1. Evaluation of central canal and foraminal narrowing is better assessed by MRI. Severe right-sided foraminal narrowing is seen at C4-C5 and on the left at C6-C7. Partially calcified pannus is noted posterior to odontoid process measuring 4 mm. Lung apices are clear. Sternotomy wires are partially imaged. Atherosclerosis of the carotid sommer. No focal soft tissue abnormality. IMPRESSION: 1. No acute fracture or subluxation of the cervical spine. 2. Multilevel discogenic degenerative changes and facet arthrosis as above. The above report was generated using voice recognition software. It may contain grammatical, syntax or spelling errors. Electronically signed by: Kyle Pinzon M.D. 06/10/2017 8:55 AM Dictated Date/Time: 06/10/2017 8:50 AM
[2017-06-10 09:12] LABS: INFLUENZA B ANTIGEN Neg for Influ B (NEG)
--- NOTE | 2017-06-10 09:20 | DIAGNOSTIC IMAGING REPORT ---
L FEMUR 2 VIEWS ROUTINE, R FEMUR 2 VIEWS ROUTINE HISTORY: 81 years-old Male Pt c/o b/l hip pain acute bilateral hip pain COMPARISON: Pelvis radiograph of same day, CT abdomen and pelvis 06/12/2016 TECHNIQUE: 2 views of the bilateral femora FINDINGS: LEFT: Surgical clips project over the left femoral acetabular joint and left proximal tibia. Small knee joint effusion. No acute fracture or subluxation identified. Moderate general changes of the left hip. Degenerative changes also seen about the left knee. Soft tissues are unremarkable. Peripheral vascular disease. RIGHT: Small joint effusion. Degenerative changes are noted about the knee with moderate degenerative changes of the right hip. Chondrocalcinosis is also seen about the right femoral acetabular joint. There is no acute fracture or subluxation identified. Surgical clips and coils project over the right pelvis. IMPRESSION: 1. No acute fracture or subluxation of the bilateral femora. 2. Moderate degenerative changes of the bilateral hips. 3. Peripheral vascular disease. 4. Small bilateral knee joint effusions. The above report was generated using voice recognition software. It may contain grammatical, syntax or spelling errors. Electronically signed by: Kyle Pinzon M.D. 06/10/2017 9:18 AM Dictated Date/Time: 06/10/2017 9:15 AM
--- NOTE | 2017-06-10 09:21 | DIAGNOSTIC IMAGING REPORT ---
PELVIS 1 OR 2 VIEW ROUTINE HISTORY: 81 years-old Male Pt c/o b/l hip pain acute bilateral hip pain COMPARISON: Bilateral femur radiographs of same day, CT abdomen and pelvis 06/12/2016 TECHNIQUE: Single AP view of the pelvis FINDINGS: Surgical clips and coils project over the bilateral inguinal regions. Moderate degenerative changes of the bilateral hips with right hip chondrocalcinosis. No pelvic ring fracture identified. The bones appear mildly demineralized. Sacrum appears intact. Degenerative changes are seen within the lower lumbar spine. Vascular calcifications noted. IMPRESSION: No acute fracture or subluxation. The above report was generated using voice recognition software. It may contain grammatical, syntax or spelling errors. Electronically signed by: Kyle Pinzon M.D. 06/10/2017 9:20 AM Dictated Date/Time: 06/10/2017 9:18 AM
--- NOTE | 2017-06-10 09:25 | DIAGNOSTIC IMAGING REPORT ---
CHEST ONE VIEW PORTABLE HISTORY: 81 years-old Male Pt c/o b/l shoulder pain acute bilateral shoulder pain COMPARISON: Chest radiograph 03/27/2013 TECHNIQUE: Portable AP view of the chest FINDINGS: Cardiac silhouette is again at least moderately enlarged. Atherosclerosis of the aorta. Prior median sternotomy. Cardiac valvular prosthetic device noted. There is no pneumothorax or large pleural effusion. There is pulmonary vascular congestion with trace fluid within the minor fissure. Mild right hemidiaphragmatic elevation with hazy subsegmental bibasilar opacities. Bones appear mildly demineralized. Degenerative changes are seen within the shoulders and spine. Bones appear grossly intact. IMPRESSION: 1. Cardiomegaly and pulmonary vascular congestion without overt pulmonary edema. Trace fluid is noted within the minor fissure. 2. Hazy bibasilar opacities suggest atelectasis. The above report was generated using voice recognition software. It may contain grammatical, syntax or spelling errors. Electronically signed by: Kyle Pinzon M.D. 06/10/2017 9:23 AM Dictated Date/Time: 06/10/2017 9:21 AM
[2017-06-10] MEDS ORDERED: HYDROmorphone INJ 0.5 MG/0.5 ML SYR IV STA (09:55)
[2017-06-10] MEDS ORDERED: LIDODERM (LIDOCAINE) PATCH 5% TD STA (09:55)
[2017-06-10] MEDS ORDERED: ONDANSETRON INJ 2 MG/ML 2 ML VIAL IV STA (09:55)
[2017-06-10] MEDS ORDERED: HYDROmorphone INJ 0.5 MG/0.5 ML SYR IV PRN (13:00)
[2017-06-10] MEDS ORDERED: MAGNESIUM HYDROXIDE SUSP 30 ML UDC PO PRN (13:00)
[2017-06-10] MEDS ORDERED: ALUMINUM/MAGNESIUM/SIMETH (MAALOX MAX) 30 ML UDC PO PRN (13:00)
[2017-06-10] MEDS ORDERED: ONDANSETRON INJ 2 MG/ML 2 ML VIAL IV PRN (13:00)
[2017-06-10] MEDS ORDERED: ACETAMINOPHEN 325 MG TAB PO PRN (13:00)
[2017-06-10] MEDS ORDERED: DIAZEPAM 5MG TAB PO PRN (13:00)
[2017-06-10] MEDS ORDERED: WARF4TAB43 PO (13:06)
--- NOTE | 2017-06-10 14:02 | History and Physical ---
History & Physical Date & Time of Service: Jun 10, 2017 at 13:28 Chief Complaint: Neck Pain Primary Care Physician: Deric Wilkes M.D. History of Present Illness Source: patient, spouse, clinic records, hospital records This is an 81 y/o male with a history of a-fib/flutter on chronic AC, s/p mechanical aortic valve replacement, s/p porcine mitral valve replacement, CAD, HLD, diastolic CHF, asthma, pulmonary nodules w/mediastinal adenopathy, ALEXANDRO, BPH , and wet macular degeneration who presented to the ED on 06/10 with severe neck pain, neck stiffness, and left groin pain. The patient states that he has had chronic intermittent neck pain for the last several years. The episodes of pain typically self resolve with rest and pain medication; however this episode has been more severe and not improving. He states he developed 10/10 neck pain a few days ago that has not been improving at all, despite taking muscle relaxants and narcotics at home. The pain is currently along the left side of his neck, but the pain is not always in the same place and often moves around. He notes that lately he has been having pain radiating to his upper chest and around his throat, making it difficult for him to swallow. He complains of stiffness throughout his body but most markedly at his neck, making him unable to get out of bed and move around. He also complains of a left groin pain that also been intermittent for the last year since a left inguinal hernia repair, although this pain is less severe than the neck pain. He denies any fevers but states he has had some chills. The patient denies fevers, sweats, chest pain, palpitations, claudication, cough, wheezing, shortness of breath, nausea, vomiting, abdominal pain, dysuria, hematuria, urinary retention, paralysis, weakness, numbness and tingling. Past Medical/Surgical History Medical Problems: (1) A-fib Status: Resolved (2) Diastolic CHF (congestive heart failure) Status: Chronic (3) Dehydration Status: Resolved (4) History of Coumadin therapy Status: Chronic (5) Replacement of aortic valve Status: Chronic CAD HLD Asthma Pulmonary nodules w/mediastinal adenopathy ALEXANDRO BPH Wet macular degeneration Porcine mitral valve Family History Cancer Myocardial infarction Stroke Social History Smoking Status: Never Smoker Smokeless Tobacco Use: No Alcohol Use: socially Drug Use: none Marital Status: Housing status: lives with significant other Occupational Status: retired Immunizations History of Influenza Vaccine: Yes Influenza Vaccine Date: Mar 06, 2013 History of Tetanus Vaccine?: Unknown History of Pneumococcal: Yes Pneumococcal Date: Aug 04, 2012 History of Hepatitis B Vaccine: Unknown Multi-Drug Resistant Organisms History of MDRO: No Allergies Coded Allergies: Celecoxib (Verified Allergy, Unknown, ., 06/12/16) Cyclobenzaprine (Verified Allergy, Unknown, ., 06/12/16) Penicillins (Verified Allergy, Unknown, RASH, 06/10/17) Simvastatin (Verified Adverse Reaction, Intermediate, MUSCLE PAIN, 06/10/17 ) Home Medications Scheduled Aspirin (Aspirin Chewable), 81 MG PO DAILY Atorvastatin (Lipitor), 20 MG PO DAILY Furosemide (Lasix), 40 MG PO DAILY Multiple Vitamin (Multi Vitamin Daily), 1 TAB PO DAILY Ocuvite Preservision (Ocuvite Preservision), 1 TAB PO DAILY Potassium Ext Rel (Klor-Con), 20 MEQ PO DAILY Ranibizumab (Lucentis), 1 DOSE INJ [id number] Sotalol Hcl (Sotalol Hcl), 40 MG PO DAILY Warfarin Sod (Jantoven), 6 MG PO [id number] Warfarin Sodium (Warfarin Sodium), 8 MG PO 2XWK Scheduled PRN Tramadol (Ultram), 100 MG PO Q4H PRN for Pain Review of Systems Constitutional: +Chills. No fever, No sweats Eyes: No worsening of vision, No eye pain, No diplopia ENT: No hearing loss, No nasal symptoms, No trouble swallowing Respiratory: No cough, No wheezing, No shortness of breath Cardiovascular: No chest pain, No claudication, No palpitations Abdomen: +Left groin pain. No nausea, No vomiting Musculoskeletal: +10/10 sharp neck pain, neck stiff. No muscle pain, No swelling Genitourinary - Male: No dysuria, No urinary retention, No hematuria Neurologic: No paralysis, No weakness, No numbness/tingling Integumentary: No rash, No itch, No color change Physical Exam Vital Signs Date Time Temp Pulse Resp B/P (MAP) Pulse Ox O2 Delivery O2 Flow Rate FiO2 06/10/17 13:07 77 16 123/73 98 Room Air 06/10/17 12:16 85 16 130/72 95 Room Air 06/10/17 10:29 96 20 132/83 95 Room Air 06/10/17 08:31 76 06/10/17 08:21 136/63 06/10/17 08:20 96 Room Air 06/10/17 08:20 96 Room Air 06/10/17 07:52 37.1 78 18 124/53 95 Room Air General appearance: Well-developed, well-nourished, no apparent distress Head: Normocephalic, atraumatic Eyes: Normal inspection, PERRL, EOMI ENT: Normal ENT inspection, hearing grossly normal, pharynx normal Neck: +Stiff, very limited passive ROM. Very TTP. No JVD, trachea midline Respiratory/Chest: Lungs clear to auscultation, normal breath sounds, no respiratory distress Cardiovascular: +Irregularly irregular. No gallop, no murmur Abdomen/GI: Normal bowel sounds, non-tender, soft Extremities/Musculoskeletal: Normal inspection, no calf tenderness, no pedal edema Neurological/Psych: Alert, normal mood/affect, oriented x 3 Skin: Normal color, warm/dry, no rash Diagnostics Laboratory Results Results Past 24 Hours Test 06/10/17 08:00 06/10/17 08:17 06/10/17 08:26 06/10/17 10:18 Range/Units White Blood Count 13.81 4.8-10.8 K/uL Red Blood Count 4.28 4.7-6.1 M/uL Hemoglobin 13.7 14.0-18.0 g/dL Hematocrit 38.7 42-52 % Mean Corpuscular Volume 90.4 80-100 fL Mean Corpuscular Hemoglobin 32.0 25-34 pg Mean Corpuscular Hemoglobin Concent 35.4 32-36 g/dl Platelet Count 212 130-400 K/uL Mean Platelet Volume 10.5 7.4-10.4 fL Neutrophils (%) (Auto) 80.9 % Lymphocytes (%) (Auto) 4.8 % Monocytes (%) (Auto) 13.7 % Eosinophils (%) (Auto) 0.3 % Basophils (%) (Auto) 0.1 % Neutrophils # (Auto) 11.18 1.4-6.5 K/uL Lymphocytes # (Auto) 0.66 1.2-3.4 K/uL Monocytes # (Auto) 1.89 0.11-0.59 K/uL Eosinophils # (Auto) 0.04 0-0.5 K/uL Basophils # (Auto) 0.01 0-0.2 K/uL RDW Standard Deviation 44.4 36.4-46.3 fL RDW Coefficient of Variation 13.4 11.5-14.5 % Immature Granulocyte % (Auto) 0.2 % Immature Granulocyte # (Auto) 0.03 0.00-0.02 K/uL Sodium Level 131 136-145 mmol/L Potassium Level 3.9 3.5-5.1 mmol/L Chloride Level 96 98-107 mmol/L Carbon Dioxide Level 26 21-32 mmol/L Anion Gap 9.0 3-11 mmol/L Blood Urea Nitrogen 29 7-18 mg/dl Creatinine 1.33 0.60-1.40 mg/dl Estimated GFR () 58.1 Estimated GFR (Non- 50.1 BUN/Creatinine Ratio 21.7 10-20 Random Glucose 119 70-99 mg/dl Calcium Level 8.9 8.5-10.1 mg/dl Total Bilirubin 0.8 0.2-1 mg/dl Direct Bilirubin 0.2 0-0.2 mg/dl Aspartate Amino Transf (AST/SGOT) 19 15-37 U/L Alanine Aminotransferase (ALT/SGPT) 17 12-78 U/L Alkaline Phosphatase 71 45-117 U/L Total Creatine Kinase 165 39-308 U/L Creatine Kinase MB 1.2 0.5-3.6 ng/ml Creatine Kinase MB Ratio 0.7 0-3.0 Troponin I < 0.015 0-0.045 ng/ml Total Protein 8.1 6.4-8.2 gm/dl Albumin 3.0 3.4-5.0 gm/dl Thyroid Stimulating Hormone (TSH) 2.210 0.300-4.500 uIu/ml Bedside Glucose 112 70-99 mg/dl Urine Color DK YELLOW Urine Appearance CLEAR CLEAR Urine pH 5.0 4.5-7.5 Urine Specific [place] 1.028 1.000-1.030 Urine Protein 2+ NEG Urine Glucose (UA) NEG NEG Urine Ketones 2+ NEG Urine Occult Blood 2+ NEG Urine Nitrite NEG NEG Urine Bilirubin NEG NEG Urine Urobilinogen NEG NEG Urine Leukocyte Esterase NEG NEG Urine WBC (Auto) 1-5 0-5 /hpf Urine RBC (Auto) 0-4 0-4 /hpf Urine Hyaline Casts (Auto) 5-10 0-5 /lpf Urine Epithelial Cells (Auto) 10-20 0-5 /lpf Urine Bacteria (Auto) NEG NEG Influenza Type A Antigen Neg for Influ A NEG Influenza Type B Antigen Neg for Influ B NEG Prothrombin Time 31.2 9.0-12.0 SECONDS Prothromb Time International Ratio 3.0 0.9-1.1 Microbiology Results 06/10/17 Blood Culture, Received Pending 06/10/17 Blood Culture, Received Pending Diagnostic Radiology Reviewed the following studies and agree with interpretation as follows: PELVIS 1 OR 2 VIEW ROUTINE HISTORY: 81 years-old Male Pt c/o b/l hip pain acute bilateral hip pain COMPARISON: Bilateral femur radiographs of same day, CT abdomen and pelvis 06/12/2016 TECHNIQUE: Single AP view of the pelvis FINDINGS: Surgical clips and coils project over the bilateral inguinal regions. Moderate degenerative changes of the bilateral hips with right hip chondrocalcinosis. No pelvic ring fracture identified. The bones appear mildly demineralized. Sacrum appears intact. Degenerative changes are seen within the lower lumbar spine. Vascular calcifications noted. IMPRESSION: No acute fracture or subluxation. HEAD WITHOUT CONTRAST (CT) CLINICAL HISTORY: 81 years-old Male with Pt c/o AMS. Acute altered mental status with neck pain TECHNIQUE: Multiple axial CT images of the head were obtained without contrast. A dose lowering technique was utilized adhering to the principles of ALARA. COMPARISON: CT cervical spine of same day. FINDINGS: No acute intracranial hemorrhage, midline shift, intracranial mass, hydrocephalus, territorial ischemia or abnormal extra-axial collection. Mild atrophy with ex vacuo ventriculomegaly. Vascular calcifications are seen at the level of the skull base. The calvarium is intact. The mastoid air cells, and middle ear cavities are clear. Mild mucosal thickening of the ethmoid air cells. Bilateral cuong bullosa. IMPRESSION: No acute intracranial abnormality identified. L FEMUR 2 VIEWS ROUTINE, R FEMUR 2 VIEWS ROUTINE HISTORY: 81 years-old Male Pt c/o b/l hip pain acute bilateral hip pain COMPARISON: Pelvis radiograph of same day, CT abdomen and pelvis 06/12/2016 TECHNIQUE: 2 views of the bilateral femora FINDINGS: LEFT: Surgical clips project over the left femoral acetabular joint and left proximal tibia. Small knee joint effusion. No acute fracture or subluxation identified. Moderate general changes of the left hip. Degenerative changes also seen about the left knee. Soft tissues are unremarkable. Peripheral vascular disease. RIGHT: Small joint effusion. Degenerative changes are noted about the knee with moderate degenerative changes of the right hip. Chondrocalcinosis is also seen about the right femoral acetabular joint. There is no acute fracture or subluxation identified. Surgical clips and coils project over the right pelvis. IMPRESSION: 1. No acute fracture or subluxation of the bilateral femora. 2. Moderate degenerative changes of the bilateral hips. 3. Peripheral vascular disease. 4. Small bilateral knee joint effusions. CHEST ONE VIEW PORTABLE HISTORY: 81 years-old Male Pt c/o b/l shoulder pain acute bilateral shoulder pain COMPARISON: Chest radiograph 03/27/2013 TECHNIQUE: Portable AP view of the chest FINDINGS: Cardiac silhouette is again at least moderately enlarged. Atherosclerosis of the aorta. Prior median sternotomy. Cardiac valvular prosthetic device noted. There is no pneumothorax or large pleural effusion. There is pulmonary vascular congestion with trace fluid within the minor fissure. Mild right hemidiaphragmatic elevation with hazy subsegmental bibasilar opacities. Bones appear mildly demineralized. Degenerative changes are seen within the shoulders and spine. Bones appear grossly intact. IMPRESSION: 1. Cardiomegaly and pulmonary vascular congestion without overt pulmonary edema. Trace fluid is noted within the minor fissure. 2. Hazy bibasilar opacities suggest atelectasis. CERVICAL SPINE W/O CT DOSE: 1260.29 mGy.cm CLINICAL HISTORY: 81 years-old Male with Pt c/o neck pain . Acute neck pain with altered mental status no reported acute trauma. COMPARISON: None. TECHNIQUE: Multiple axial CT images of the cervical spine were obtained without contrast. A dose lowering technique was utilized adhering to the principles of ALARA. FINDINGS: No acute fracture or subluxation of the cervical spine identified. Mastoid air cells and middle ear cavities are clear. Multilevel degenerative changes of the cervical spine are noted with severe intervertebral disc space narrowing at C4-C5 and C6-C7. Multilevel posterior disc osteophyte complex formations. There is slight reversal the normal cervical lordosis centered at the C4 level. Severe facet arthrosis noted on the left at C2-C3 and also at C5-C6 and on the right at C3-C4 and C7-T1. There is fusion of the left-sided facets at C3-C4 and C7-T1. Evaluation of central canal and foraminal narrowing is better assessed by MRI. Severe right-sided foraminal narrowing is seen at C4-C5 and on the left at C6-C7. Partially calcified pannus is noted posterior to odontoid process measuring 4 mm. Lung apices are clear. Sternotomy wires are partially imaged. Atherosclerosis of the carotid sommer. No focal soft tissue abnormality. IMPRESSION: 1. No acute fracture or subluxation of the cervical spine. 2. Multilevel discogenic degenerative changes and facet arthrosis as above. EKG Reviewed EKG and agree with interpretation as follows: 74, undeterminable rhythm, incomplete LBBB Impression Assessment and Plan 81 y/o male with a history of a-fib/flutter on chronic AC, s/p mechanical aortic valve replacement, s/p porcine mitral valve replacement, CAD, HLD, diastolic CHF, asthma, pulmonary nodules w/mediastinal adenopathy, ALEXANDRO, BPH, and wet macular degeneration who presented to the ED on 06/10 with severe neck pain, neck stiffness, and left groin pain. The patient arrived afebrile, VSS. Imaging of pelvis, femurs, c-spine negative for acute disease. Head CT negative. Pt apparently confused per ED physician but alert and oriented x 4 on my exam. CXR with pulmonary vascular congestion w/o overt pulmonary edema. EKG with undeterminable rhythm. WBC elevated at 13.81. Severe neck pain, stiffness -Admit to med/surg for observation -Consult orthopedic spine surgery, appreciate recs -Will obtain MRI of cervical spine -Valium 5 mg PO q8h prn muscle spasm -Continue home tramadol 100 mg PO q4h prn pain -Dilaudid 0.5 mg IV q4h prn pain and lidoderm patch -PT/OT evaluate and treat -Some pain radiating to chest, will trend cardiac enzymes q8h x 3. First set negative. Some T-wave inversions, will repeat EKG in morning Leukocytosis -WBC 13.81 on admission. Could be secondary to stress of severe pain -Consider LP if pt becomes febrile, currently on warfarin w/INR of 3 A-fib/flutter on chronic anticoagulation, s/p mechanical aortic valve, s/p porcine mitral valve, CAD, HLD--stable -INR 3.0 on admission, goal 2.5-3.5 -Continue ASA, sotalol 40 mg PO qd, Lipitor 20 mg PO qd, warfarin 6 mg PO 5x/ week and 8 mg on Mon/Fri -Monitor INR Chronic diastolic CHF--stable, no acute exacerbation -Continue Lasix 40 mg PO qd and potassium supplement Pulmonary nodules w/mediastinal adenopathy--noted, stable for last several years ALEXANDRO--does not tolerate CPAP DVT prophylaxis -Warfarin -MAITE claudio and SCDs Code Status -Level V, DO NOT RESUSCITATE Level of Care Med/Surg Resuscitation Status DO NOT RESUSCITATE VTE Prophylaxis VTE Risk Assessment Done? Y/N: Yes Risk Level: Moderate Given or contraindicated: Warfarin (Coumadin), T.E.DDalton Stockings, SCD's Reviewed: Pt Seen/Exam by Me History Physician Circulation Supervisor Supervision Note: I interviewed and examined the patient. Discussed with NOEL Ratliff and agree with findings and plan as documented in the note. Any exceptions or clarifications are listed here: Patient presented with severe posterior neck pain and stiffness along with bilateral leg weakness and pain progressively worsening over the last 3-4 days. He did have chills at home a few days ago, an approximate 5 days ago, he had myalgias and a brief gastrointestinal illness. The patient denies photophobia or headache. He denies numbness or tingling anywhere. He denies chest pain, shortness of breath, cough. He has had a mild sore throat coming and going the last few days. He feels that he's having trouble swallowing because of the severe neck pain and stiffness. I discussed the case with both orthopedic spine surgery, Dr. Blackmon, on the phone, as well as infectious disease, Dr. Diaz. Vital signs reviewed NAD, alert awake oriented 3 Throat without erythema, no tongue swelling Neck with positive tenderness to palpation over the bilateral paraspinous muscles of the cervical spine, no tenderness over the trapezius or anterior neck , no tenderness over the spinous processes from the cervical spine down through lumbar spine Regular rate and rhythm, S2 click, 2-6 DOT Lungs clear to auscultation bilaterally, breathing unlabored Abdomen positive bowel sounds soft nontender nondistended Extremities no edema, 2+ dorsalis pedis pulses bilaterally, mild joint effusion in the right knee with some warmth, no erythema, significantly decreased range of motion in the bilateral knees right less range of motion on the left. Neuro-5 out of 5 strength bilaterally in the upper extremities, lower extremities with significant weakness-unable to lift lower extremities off the bed with hip flexion against gravity possibly secondary to pain, but difficult to tell, sensation intact to light touch throughout upper and lower extremities bilaterally, deep tendon reflexes were 1+ and symmetric in the upper extremities , unable to elicit lower extremities do to inability to relax muscles, no ankle clonus Skin no rashes Laboratory values reviewed-significant for WBC count 13 K ECG with sinus rhythm with significantly prolonged WI interval, incomplete left bundle branch block and T-wave inversions in lateral leads chest, and gone on previous ECGs, first-degree AV block was present in the past as well 81-year-old male with a history of mechanical AVR, porcine MVR, on chronic anticoagulation with Coumadin, paroxysmal atrial fibrillation, ALEXANDRO not on CPAP, BPH, pulmonary nodules, here with severe neck pain, bilateral lower extremity pain and weakness, and leukocytosis. With recent viral infection less than one week ago. -Concerning for musculoskeletal neck pain with torticollis versus cervical spine stenosis versus epidural hematoma from anticoagulation versus meningitis -Unable to perform lumbar puncture if an INR of 3.0 on chronic anticoagulation- we'll treat empirically with Rocephin and vancomycin-appreciate ID consult -We will get MRI of the cervical/thoracic/lumbar spine to further evaluate- appreciate orthopedic spine consultation -Trend troponin given ECG changes and follow ECG-consider cardiology consultation if anything concerning. Documented By: Deb Guzmán
[2017-06-10] MEDS ORDERED: IV FLUIDS COMPLETED PRN (14:15)
[2017-06-10] MEDS ORDERED: POLYETHYLENE (MIRALAX) 17 GM PACK PO PRN (14:15)
[2017-06-10 15:00] VITALS: BP 135/68; PULSE 79; TEMP 36.6; O2SAT 96
[2017-06-10 15:10] VITALS: BP 135/68; PULSE 79; TEMP 36.6; O2SAT 96; Ht 177.8 cm; Wt 90.6 kg
[2017-06-10] MEDS: TRAMADOL HCL 50 MG TAB PO PRN ×4 (15:33→22:39)
[2017-06-10] MEDS ORDERED: VANCOMYCIN INJ 1,000 MG in SODIUM CHLORIDE 0.9% 250ML 250 ML IV STA (16:27)
[2017-06-10] MEDS ORDERED: VANCOMYCIN CONSULT ACTIVE PRN ×2 (16:30)
[2017-06-10 16:36] LABS: CKMB 2.2 ng/ml (0.5-3.6)
[2017-06-10] MEDS: WARFARIN SOD 6 MG TAB PO SCH (16:38)
[2017-06-10] MEDS ORDERED: CEFTRIAXONE SOD INJ 2,000 MG in DEXTROSE 5% 50ML 50 ML IV SCH (17:00)
[2017-06-10] MEDS ORDERED: VANCOMYCIN INJ 2,250 MG in SODIUM CHLORIDE 0.9% 500ML 500 ML IV SCH (17:30)
[2017-06-10] MEDS ORDERED: NURSING DECISION MEDICATION ORDER SCH (20:30)
[2017-06-10] MEDS ORDERED: VANCOMYCIN INJ 1,000 MG in SODIUM CHLORIDE 0.9% 250ML 250 ML IV SCH (21:00)
[2017-06-10] MEDS ORDERED: COUGH DROP (SUGAR FREE) LOZ 24 LOZ/1 BOX LOZ PRN (21:00)
--- NOTE | 2017-06-10 23:19 | DIAGNOSTIC IMAGING REPORT ---
LUMBAR SPINE W/O CONTRAST CLINICAL HISTORY: 81 years-old Male with lower extremity weakness, severe neck pain. Acute lower extremity weakness with severe back pain COMPARISON: CT abdomen and pelvis 06/12/2016 TECHNIQUE: Multiplanar, multi sequence MRI of the lumbar spine was performed without intravenous contrast. FINDINGS: Large T2 hyperintense lesions involving the right kidney measure up to 5.8 cm suggesting renal cysts as seen on comparison study. No focal bone marrow edema, acute fracture or subluxation. 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 Modic type II endplate degenerative changes at T12-L1 with moderate intervertebral disc space narrowing. Signal within the cord is within normal limits. Conus medullaris terminates at L1. Study is mildly motion degraded. T12-L1: Broad-based posterior disc osteophyte complex and mild facet arthrosis. There is mild central canal and mild inferior bilateral foraminal narrowing on the sagittal images alone. L1-L2: Mild intervertebral disc space narrowing with mild facet arthrosis. No central canal or foraminal narrowing. L2-L3: Mild intervertebral disc space narrowing with minimal posterior spondylitic spurring, moderate facet arthrosis with trace facet effusions. Mild bilateral inferior foraminal narrowing. No central canal stenosis. L3-L4: Mild intervertebral disc space narrowing with minimal posterior spondylitic spurring and small broad-based posterior disc bulge with moderate facet arthrosis, trace facet effusions and ligamentum flavum thickening. Mild bilateral foraminal stenosis. Central canal is patent. L4-L5: Mild intervertebral disc space narrowing with minimal posterior spondylitic spurring and small circumferential annular disc bulge with moderate facet arthrosis, trace facet effusions and ligamentum flavum thickening. There is flattening of the ventral thecal sac with mild central canal, mild right and mild to moderate left foraminal narrowing. L5-S1: Severe intervertebral disc space narrowing with broad-based posterior disc osteophyte complex, mild facet arthrosis and ligamentum flavum thickening. Findings cause moderate bilateral foraminal stenosis without significant central canal narrowing. IMPRESSION: 1. No acute fracture or focal bone marrow edema. 2. Modic type II endplate degenerative changes with intervertebral disc space narrowing and broad-based posterior disc osteophyte complex formation at T12-L1 causing mild central canal and mild bilateral foraminal narrowing. 3. Moderate bilateral foraminal stenosis at L5-S1 secondary to severe intervertebral disc space narrowing with broad-based posterior disc osteophyte complex, mild facet arthrosis and ligamentum flavum thickening. 4. Additional mild discogenic degenerative changes and mild to moderate facet arthrosis as above. The above report was generated using voice recognition software. It may contain grammatical, syntax or spelling errors. Electronically signed by: Kyle Pinzon M.D. 06/10/2017 11:18 PM Dictated Date/Time: 06/10/2017 11:10 PM
[2017-06-11] MEDS ORDERED: GADAVIST IV PRN (00:05)
[2017-06-11 00:35] VITALS: BP 131/75; PULSE 98; TEMP 36.9; O2SAT 92
[2017-06-11] MEDS: CEFTRIAXONE SOD INJ 2,000 MG in DEXTROSE 5% 50ML 50 ML IV SCH ×2 (05:19→16:43)
--- NOTE | 2017-06-11 06:41 | DIAGNOSTIC IMAGING REPORT ---
MRI OF THE THORACIC SPINE WITHOUT CONTRAST CLINICAL HISTORY: Pain and lower extremity weakness. COMPARISON: None. TECHNIQUE: Utilizing a 1.5 Sheba magnet and dedicated coil, multiplanar, multiecho imaging of the thoracic spine was performed without IV contrast. FINDINGS: Alignment of the thoracic spine is anatomic. Vertebral body heights are maintained. Thoracic cord signal is suboptimally assessed on this exam but grossly unremarkable. There is moderate motion artifact on the study. Paravertebral soft tissues are unremarkable. There is no evidence for discitis. There is no epidural fluid collection is suggested epidural abscess. Note is made of a small central/right paracentral disc protrusion at T7-T8 that indents the ventral aspect of the cord. No additional disc herniations are identified. There is no suspicious marrow replacement. Discogenic changes are noted at several levels. Prominent para-aortic lymph nodes are similar to chest CT of July 31, 2011. IMPRESSION: 1. No thoracic spine fracture. 2. Study moderately compromised by motion artifact. Thoracic cord signal suboptimally assessed but no definite abnormality. 3. Small central/right paracentral disc protrusion at T7-T8 that indents the ventral aspect of the cord. 4. Mild multilevel degenerative disc disease and facet arthrosis. Electronically signed by: Leo Pastrana M.D. 06/11/2017 6:40 AM Dictated Date/Time: 06/11/2017 6:28 AM
[2017-06-11 06:52] VITALS: BP 121/68; PULSE 80; TEMP 36.7; O2SAT 96
[2017-06-11 07:41] LABS: HEMATOCRIT 38.5 % (42-52); HEMOGLOBIN 13.2 g/dL (14.0-18.0); MEAN CORPUSCULAR HEMOGLOBIN 31.2 pg (25-34); MEAN CORPUSCULAR HGB CONC 34.3 g/dl (32-36); PLATELET COUNT 226 K/uL (130-400); RED CELL DISTRIBUTION WIDTH CV 13.6 % (11.5-14.5); WHITE BLOOD COUNT 17.98 K/uL (4.8-10.8)
--- NOTE | 2017-06-11 07:53 | DIAGNOSTIC IMAGING REPORT ---
CERVICAL SPINE MRI WITH AND WITHOUT CONTRAST HISTORY: severe neck pain and stiffness, lower extremity weakness TECHNIQUE: Multiplanar multisequence MRI of the cervical spine was performed both before and after the use of intravenous contrast. COMPARISON STUDY: None. FINDINGS: Motion artifact. Small amount prevertebral edema from the C2-C5 level. The cervical spinal cord is normal in course, caliber, and signal intensity. No abnormal enhancement. Moderate degenerative disc disease at C4-C5 and mild degenerative disc disease at C6-C7 and C7-T1. No fractures within the cervical spine. There is 2 mm of anterolisthesis of C7 on T1. The C1-C2 interval is maintained. The bilateral C3-C4 facets are fused. C2-C3: No significant central canal or neural foraminal narrowing. C3-C4: No significant central canal or neural foraminal narrowing. C4-C5: Small broad-based posterior disc osteophyte complex resulting in partial effacement of the anterior thecal sac and moderate right and mild left neural foraminal narrowing. C5-C6: Small broad-based posterior disc osteophyte complex asymmetric to the left resulting in partial effacement of the anterior thecal sac without cord deformity. There is moderate bilateral neural foraminal narrowing. C6-C7: Small broad-based posterior disc bulge without significant central canal narrowing. There is mild bilateral neural foraminal narrowing. C7-T1: No significant central canal or neural foraminal narrowing. IMPRESSION: 1. Suboptimal study due to the artifact. However, no fractures identified within the cervical spine. 2. Mild nonspecific prevertebral edema from the C2-C5 levels. This could be chronic or related to ligamentous injury if the patient has had recent trauma. 3. Degenerative changes as described above. Electronically signed by: Andrea Sahu M.D. 06/11/2017 7:52 AM Dictated Date/Time: 06/11/2017 7:40 AM
[2017-06-11 08:03] LABS: INR 3.7 (0.9-1.1)
[2017-06-11 08:06] LABS: CREATININE 1.44 mg/dl (0.60-1.40); POTASSIUM 3.9 mmol/L (3.5-5.1)
--- NOTE | 2017-06-11 08:32 | Orthopedic Consultation ---
Orthopedic Consultation Date of Consultation: Jun 11, 2017. Attending Physician: Deb Guzmán MD Reason for Consultation: Neck and lower extremity pain and weakness. History of Present Illness Severity pleasant 81-year-old male who presents with severe neck pain and complaints of lower extremity weakness and pain. He states the symptoms began latter half of last week. They've progressed the point that he is unable to ambulate comfortably and was subsequently admitted. This morning he states his neck pain is somewhat improved. He admits to increased range of motion without discomfort. He still complains of bilateral leg pain more on the right than the left. Pain is centered specifically on the right knee. Denies any numbness and tingling associated with this. Denies any clear radicular component. He states a history ambulation is markedly limited secondary to the pain. He denies any upper extremity weakness numbness or tingling. Past Medical/Surgical History Medical Problems: (1) Altered mental status Status: Acute (2) Left thigh pain Status: Acute (3) Pain Status: Acute (4) Weakness Status: Acute Family History Cancer Myocardial infarction Stroke Social History Smoking Status: Never Smoker Smokeless Tobacco Use: No Alcohol Use: socially Drug Use: none Marital Status: Housing Status: lives with family Occupation Status: retired Allergies Coded Allergies: Celecoxib (Verified Allergy, Unknown, ., 06/12/16) Cyclobenzaprine (Verified Allergy, Unknown, ., 06/12/16) Penicillins (Verified Allergy, Unknown, RASH, 06/10/17) Simvastatin (Verified Adverse Reaction, Intermediate, MUSCLE PAIN, 06/10/17 ) Home Medications Scheduled Aspirin (Aspirin Chewable), 81 MG PO DAILY Atorvastatin (Lipitor), 20 MG PO DAILY Furosemide (Lasix), 40 MG PO DAILY Multiple Vitamin (Multi Vitamin Daily), 1 TAB PO DAILY Ocuvite Preservision (Ocuvite Preservision), 1 TAB PO DAILY Potassium Ext Rel (Klor-Con), 20 MEQ PO DAILY Ranibizumab (Lucentis), 1 DOSE INJ [id number] Sotalol Hcl (Sotalol Hcl), 40 MG PO DAILY Warfarin Sod (Jantoven), 6 MG PO [id number] Warfarin Sodium (Warfarin Sodium), 8 MG PO 2XWK Scheduled PRN Tramadol (Ultram), 100 MG PO Q4H PRN for Pain Current Inpatient Medications Current Inpatient Medications Medications (Trade) Dose Ordered Sig/Salvatore Route Start Time Stop Time Status Last Admin Dose Admin Acetaminophen (Tylenol Tab) 650 mg Q4H PRN PO 06/10/17 13:00 07/10/17 12:59 Al Hydrox/Mg Hydrox/Simethicone (Maalox Max Susp) 15 ml Q4H PRN PO 06/10/17 13:00 07/10/17 12:59 Magnesium Hydroxide (Milk Of Magnesia Susp) 30 ml Q6H PRN PO 06/10/17 13:00 07/10/17 12:59 Polyethylene (Miralax Powder Packet) 17 gm DAILY PRN PO 06/10/17 14:15 07/10/17 14:14 Ondansetron HCl (Zofran Inj) 4 mg Q6H PRN IV 06/10/17 13:00 07/10/17 12:59 Diazepam (Valium Tab) 5 mg Q8H PRN PO 06/10/17 13:00 07/10/17 12:59 06/10/17 15:33 5 MG Hydromorphone HCl (Dilaudid Inj) 0.5 mg Q4H PRN IV 06/10/17 13:00 06/24/17 12:59 Lidocaine (Lidoderm Patch 5%) 1 patch QAM TD 06/11/17 09:00 07/11/17 08:59 Miscellaneous (Remove Lidoderm Patch) 1 ea DAILY@21 N/A 06/10/17 21:00 07/10/17 20:59 06/10/17 21:07 1 EA Aspirin (Ecotrin Tab) 81 mg QAM PO 06/11/17 09:00 07/11/17 08:59 Atorvastatin Calcium (Lipitor Tab) 20 mg DAILY PO 06/11/17 09:00 07/11/17 08:59 Furosemide (Lasix Tab) 40 mg DAILY PO 06/11/17 09:00 07/11/17 08:59 Multivitamins/ Minerals (Multivitamin W/ Minerals Tab) 1 tab DAILY PO 06/11/17 09:00 07/11/17 08:59 Potassium Chloride (Klor-Con Tab) 20 meq DAILY PO 06/11/17 09:00 07/11/17 08:59 Sotalol HCl (Betapace Tab) 40 mg DAILY PO 06/11/17 09:00 07/11/17 08:59 Tramadol HCl (Ultram Tab) 100 mg Q4H PRN PO 06/10/17 13:00 07/10/17 12:59 06/10/17 21:13 100 MG Warfarin Sodium (Coumadin Tab) 6 mg SuTuWeThSa@1600 PO 06/10/17 16:00 07/10/17 15:59 06/10/17 16:38 6 MG Warfarin Sodium (Coumadin Tab) 8 mg MoFr@1600 PO 06/11/17 16:00 07/11/17 15:59 Miscellaneous (Iv Fluids Completed) 1 ea PRN PRN N/A 06/10/17 14:15 06/10/18 14:14 Miscellaneous Information (Consult) 1 ea UD PRN N/A 06/10/17 16:30 07/10/17 16:29 Ceftriaxone Sodium 2000 mg/ Dextrose 70 ml @ 100 mls/hr Q12H IV 06/11/17 05:00 06/20/17 16:59 06/11/17 05:19 100 MLS/HR Vancomycin HCl 1500 mg/Sodium Chloride 530 ml @ 200 mls/hr Q16H IV 06/11/17 10:00 06/20/17 17:59 Menthol (Nice Casey) 1 casey Q1H PRN CASEY 06/10/17 21:00 07/10/17 20:59 06/10/17 21:13 1 CASEY Gadobutrol (Gadavist) 9 mmol UD PRN IV 06/11/17 00:05 06/15/17 00:04 Physical Exam Date Time Temp Pulse Resp B/P (MAP) Pulse Ox O2 Delivery O2 Flow Rate FiO2 06/11/17 07:35 Room Air 06/11/17 06:52 36.7 80 16 121/68 (85) 96 Room Air 06/11/17 00:35 36.9 98 18 131/75 (93) 92 Room Air 06/11/17 00:25 Room Air 06/10/17 17:00 Room Air 06/10/17 15:10 36.6 79 16 135/68 96 Room Air 06/10/17 15:00 36.6 79 16 135/68 (90) 96 Room Air 06/10/17 14:19 83 16 123/66 98 Room Air 06/10/17 13:07 77 16 123/73 98 Room Air 06/10/17 12:16 85 16 130/72 95 Room Air 06/10/17 10:29 96 20 132/83 95 Room Air 06/10/17 08:31 76 On exam he exhibits exquisite tenderness to palpation of the right knee. I do not appreciate any gross erythema. There does appear to be an effusion. He has less discomfort to palpation over the left knee. He is marked difficulty with knee flexion on the right compared to left. Sensory symmetric and intact bilateral x-rays. He has reasonable flexion is flexion-extension S lungs. Upper extremities reveal excellent strength testing. He exhibits decreased cervical range of motion but appears to be able to flex and rotate without any significant discomfort this morning. Laboratory Results Last 24 Hours Test 06/10/17 10:18 06/10/17 16:05 06/11/17 00:24 06/11/17 06:33 Prothrombin Time 31.2 SECONDS 37.5 SECONDS Prothromb Time International Ratio 3.0 3.7 Total Creatine Kinase 364 U/L 284 U/L Creatine Kinase MB 2.2 ng/ml Creatine Kinase MB Ratio 0.6 Troponin I 0.016 ng/ml 0.027 ng/ml White Blood Count 17.98 K/uL Red Blood Count 4.23 M/uL Hemoglobin 13.2 g/dL Hematocrit 38.5 % Mean Corpuscular Volume 91.0 fL Mean Corpuscular Hemoglobin 31.2 pg Mean Corpuscular Hemoglobin Concent 34.3 g/dl RDW Standard Deviation 45.0 fL RDW Coefficient of Variation 13.6 % Platelet Count 226 K/uL Mean Platelet Volume 11.0 fL Sodium Level 133 mmol/L Potassium Level 3.9 mmol/L Chloride Level 98 mmol/L Carbon Dioxide Level 23 mmol/L Anion Gap 12.0 mmol/L Blood Urea Nitrogen 27 mg/dl Creatinine 1.44 mg/dl Est Creatinine Clear Calc Drug Dose 46.9 ml/min Estimated GFR () 52.8 Estimated GFR (Non- 45.5 BUN/Creatinine Ratio 19.0 Random Glucose 122 mg/dl Calcium Level 9.0 mg/dl Test 06/11/17 08:24 Assessment & Plan Assessment cervicalgia with bilateral knee pain. Plan we did obtain MRIs of the cervical thoracic and lumbar spine. They demonstrate normal degenerative changes expected an 9-year-old. Did not appreciate any findings that would contribute to his current complaints. Suggested consultation with general orthopedics to evaluate the knees and consider possible arthrocentesis. This point I see no need for any spine surgery.
[2017-06-11] MEDS ORDERED: MULTIVITAMIN TAB PO SCH (09:00)
[2017-06-11] MEDS ORDERED: ETHYL CHLORIDE AER SPR 100 ML CAN EXT SCH (09:30)
[2017-06-11] MEDS ORDERED: LIDOCAINE/EPINEPHRINE 2% 1:200,000 20 ML SDV INFIL SCH (09:30)
[2017-06-11] MEDS ORDERED: VANCOMYCIN INJ 1,500 MG in SODIUM CHLORIDE 0.9% 500ML 500 ML IV SCH (10:00)
[2017-06-11] MEDS ORDERED: DICLOFENAC SOD 1% GEL 100 GM TUBE EXT ONE (10:05)
[2017-06-11] MEDS: ATORVASTATIN 20 MG TAB PO SCH (10:20)
[2017-06-11] MEDS: CEROVITE ADV FORMULA TAB PO SCH (10:20)
[2017-06-11] MEDS: POTASSIUM CHLORIDE 20 MEQ TABCR PO SCH (10:21)
[2017-06-11] MEDS: FUROSEMIDE 40 MG TAB PO SCH (10:21)
[2017-06-11] MEDS: ASPIRIN 81 MG ECTAB PO SCH (10:21)
--- NOTE | 2017-06-11 10:22 | Pharmacy Progress Note ---
Pharmacy Abx Initial Consult Date of Service Jun 11, 2017. Pharmacy Dosing Scope Date of Consult: 06/10/17 Consultation requested by: Dr. Guzmán Pharmacy is consulted to initiate Vancomycin IV dosing therapy, order appropriate labs and adjust drug dose/frequency. Subjective The patient is a 81 year old male admitted on Jun 10, 2017 at 19:03. Objective Height (Feet): 5 Height (Inches): 10.00 Weight (Kilograms): 93.100 Vital Signs (Past 12Hrs) Vital Signs Past 12 Hours Date Time Temp Pulse Resp B/P (MAP) Pulse Ox O2 Delivery O2 Flow Rate FiO2 06/11/17 07:35 Room Air 06/11/17 06:52 36.7 80 16 121/68 (85) 96 Room Air 06/11/17 00:35 36.9 98 18 131/75 (93) 92 Room Air 06/11/17 00:25 Room Air Lab Results (24Hrs) Laboratory Tests (24 Hours) Test 06/11/17 00:24 06/11/17 06:33 Total Creatine Kinase 284 U/L (39-308) C-Reactive Protein 30.50 mg/dl (0-0.29) H Erythrocyte Sedimentation Rate 67 mm/hr (0-14) H White Blood Count 17.98 K/uL (4.8-10.8) H Micro Results Date/Time Source Procedure Growth Status 06/10/17 10:29 Blood Blood Culture Pending Received 06/10/17 10:18 Blood Blood Culture Pending Received Risk Factors for Resistance * n/a Assessment & Plan Assessment 81 year old male with history of a-fib/flutter, on chronic AC, asthma, CHF, and chronic neck pain admitted for severe neck pain and stiffness and left groin pain. Pt reports the left groin pain to be intermittent since his hernia repair last year. Pt is being treated with vanc and rocephin for possible meningitis. Pt renal function looks to be at baseline (1.3-1/4mg/dl) Blood cultures pending. Plan Vancomycin for treatment of meningitis Vancomycin IV * Loading dose: 2250 mg (24.2 mg/kg) * Maintenance dose:1250 mg IV (13 mg/kg) every 18 hours * Goal trough level for meningitis : 15 to 20 mcg/mL * Trough level ordered for 06/13 @1530 Pharmacy will continue to follow and will adjust dose/frequency as necessary. Thank you.
[2017-06-11] MEDS: SOTALOL HCL 80 MG TAB PO SCH (10:28)
[2017-06-11] MEDS: LIDODERM (LIDOCAINE) PATCH 5% TD SCH (10:28)
--- NOTE | 2017-06-11 10:35 | Progress Note ---
Progress Note Date of Service Jun 11, 2017. Progress Note ID Consult Dictated [id number] A/P: 1. Neck pain 2. Leukocytosis/elevated inflammatory markers -Agree with emperic abx, unable to do LP due to elevated INR -Follow blood cultures -thank you
--- NOTE | 2017-06-11 10:42 | ECHOCARDIOGRAM REPORT ---
*NOTICE TO RECEIVING [employer] This information is strictly Confidential and protected under [place] law. [place] law prohibits you from making any further disclosure of this information unless further disclosure is expressly permitted by the written consent of the person to whom it pertains or is authorized by law. A general authorization for the release of medical or other information is not sufficient for this purpose. Hospital accepts no responsibility if the information is made available to any other person, INCLUDING THE PATIENT. Interpretation Summary * Name: ALESSANDRO MONTERO Study Date: 06/10/2017 01:21 PM BP: 123/66 mmHg * Patient Location: [facility] HR: 75 * : 1935 (M/d/yyyy) Gender: Male Height: 70 in * Age: 81 yrs Ethnicity: [place] Weight: 205 lb * Ordering Physician: Emmanuel Manning * Referring Physician: Self, Referred * Performed By: Rossy Hogan RCS * * Reason For Study: VALVULAR HEART DISEASE * BSA: 2.1 m2 * -- Conclusions -- * No significant change compared to previous study of 12/29/15. * Normal LV chamber size with mild concentric LVH. * Normal LV systolic function, EF 60-65%. * No segmental left ventricular wall motion abnormalities are noted. * Grade I diastolic dysfunction. * There is a bioprosthetic aortic valve. Doppler evidence of regurgitation is probably normal for this prosthetic aortic valve. The gradient is normal for this prosthetic aortic valve. * There is a bioprosthetic mitral valve. * Prosthetic mitral valve peak and/or mean gradients are normal. Mitral prosthetic valvular gradients have increased compared to previous study of 12/29/15, however, still within normal range. * Mild left atrial enlargement. Procedure Details * A complete two-dimensional transthoracic echocardiogram was performed (2D, M-mode, Doppler and color flow Doppler). Left Ventricle * The left ventricle is normal in size. * There is mild concentric left ventricular hypertrophy. * Left ventricular systolic function is normal. * No segmental left ventricular wall motion abnormalities are noted. * Ejection Fraction = 60-65%. * The left ventricular wall motion is normal. Right Ventricle * The right ventricular cavity size is normal (basal dimension <4.2 cm in right ventricular apical 4-chamber view). * The right ventricular systolic function is normal as assessed by tricuspid annular plane systolic excursion (TAPSE) (normal >1.5 cm). Atria * The left atrium is mildly dilated. * Right atrial size is normal. * No ASD detected; PFO is not assessed. Mitral Valve * There is no mitral regurgitation noted. * There is a bioprosthetic mitral valve. * Prosthetic mitral valve peak and/or mean gradients are normal. * Mitral prosthetic valvular gradients have increased compared to previous study of 12/29/15, however, still within normal range. Aortic Valve * There is a bioprosthetic aortic valve. * Doppler evidence of regurgitation is probably normal for this prosthetic aortic valve. * The gradient is normal for this prosthetic aortic valve. Pulmonic Valve * The pulmonary valve is not well seen, but the Doppler examination is normal without significant regurgitation or stenosis. MMode 2D Measurements and Calculations IVSd 1.7 cm IVSs 2.3 cm LVIDd 4.1 cm LVIDs 3.4 cm LVPWd 1.6 cm LVPWs 1.9 cm IVS/LVPW 1.1 FS 18.5 % EDV(Teich) 75.5 ml ESV(Teich) 46.3 ml EF(Teich) 38.7 % EDV(cubed) 70.4 ml ESV(cubed) 38.1 ml EF(cubed) 45.9 % % IVS thick 32.7 % % LVPW thick 20.1 % LV mass(C)d 282.7 grams LV mass(C)dI 134.0 grams/m\S\2 LV mass(C)s 326.0 grams LV mass(C)sI 154.6 grams/m\S\2 SV(Teich) 29.3 ml SI(Teich) 13.9 ml/m\S\2 SV(cubed) 32.3 ml SI(cubed) 15.3 ml/m\S\2 Ao root diam 2.9 cm Ao root area 6.5 cm\S\2 LVOT diam 2.2 cm LVOT area 3.7 cm\S\2 Doppler Measurements and Calculations MV E max eleanor 185.5 cm/sec MV A max eleanor 167.2 cm/sec MV E/A 1.1 MV P1/2t max eleanor 209.3 cm/sec MV P1/2t 86.0 msec MVA(P1/2t) 2.6 cm\S\2 MV dec slope 713.2 cm/sec\S\2 MV dec time 0.25 sec Ao V2 max 332.6 cm/sec Ao max PG 44.3 mmHg Ao max PG (full) 37.5 mmHg LYLE(V,A) 1.4 cm\S\2 LYLE(V,D) 1.4 cm\S\2 LV V1 max PG 6.8 mmHg LV V1 max 130.5 cm/sec PA V2 max 91.2 cm/sec PA max PG 3.3 mmHg TR max eleanor 333.9 cm/sec
--- NOTE | 2017-06-11 11:14 | INFECT. DISEASE CONSULTATION ---
DATE OF CONSULTATION: 06/11/2017 HISTORY OF PRESENT ILLNESS: This is an 81-year-old gentleman who was admitted to the hospital after he had sudden onset of 10/10 neck pain yesterday at home. He denies any fevers or chills associated with this. He has been afebrile since admission to the hospital. He did undergo an MRI of the cervical, lumbar and thoracic spine which did show some area of degenerative changes and bulge, but no osteomyelitis or epidural collection was identified. He is also being followed by orthopedics. He is able to move all extremities, but does admit to some pain that radiates into the back. He has had no loss of bowel or bladder. Part of his differential did include meningitis; however, he is on anticoagulation and his INR was elevated at 3 yesterday, it is 3.7 today. For this reason the lumbar puncture was not performed. The patient was started empirically on vancomycin and Rocephin. He does have a leukocytosis. His creatinine is mildly elevated at 1.4. Flu swab and UA were negative. He currently denies any fevers or chills. He has no visual complaints. He states his pain is better today and he is able to move his neck and was able to eat breakfast this morning without difficulty. He denies any cough, shortness of breath, nausea, vomiting, diarrhea or urinary complaints. He denies any other arthralgias or myalgias. His remaining review of systems is unremarkable. PAST MEDICAL HISTORY: Significant for AFib, heart failure and a history of aortic valve replacement, coronary artery disease, hyperlipidemia, asthma, pulmonary nodules with adenopathy, obstructive sleep apnea, BPH, macular degeneration and mitral valve replacement. FAMILY HISTORY: Noncontributory. SOCIAL HISTORY: Negative for tobacco use, alcohol use or drug use. ALLERGIES: THE PATIENT HAS ALLERGIES TO CELEBREX, CYCLOBENZAPRINE, PENICILLIN AND SIMVASTATIN. CURRENT MEDICATIONS: Include Coumadin, vancomycin, eyedrops, lidocaine patch, aspirin, Lipitor, Lasix, multivitamins, potassium, sotalol, Rocephin, Gadavist, MiraLax, Maalox, Tylenol, milk of magnesia, Zofran, Valium, Dilaudid and Ultram. PHYSICAL EXAMINATION: VITAL SIGNS: He is afebrile, pulse 80, respiratory rate 16, blood pressure 121/68, oxygen saturation is 96% on room air. GENERAL: He is awake, alert and oriented x3. He is in no acute distress on my examination. HEENT: Mucous membranes are moist. Extraocular muscles are intact. The patient is able to move his neck but this is severely limited secondary to pain. There is no rash. SKIN: Not warm. LUNGS: Clear bilaterally. HEART: Regular. ABDOMEN: Soft and nondistended. EXTREMITIES: There is no edema. LABORATORY STUDIES: CBC today reveals a white blood cell count of 17.9, hemoglobin 13.2, platelets are 226. Sed rate is 67. Chemistry panel reveals a sodium of 133, potassium 3.9, chloride 98, bicarbonate 23, BUN 27, creatinine 1.4, glucose is 122. CK was elevated at 364, it is down to 284. CRP is 30.5. LFTs were normal on admission. Urinalysis is negative. Flu swab is negative. Blood cultures are pending. IMAGING: As above. ASSESSMENT AND PLAN: Neck pain with leukocytosis and elevated inflammatory markers, unclear etiology. However, he will be continued empirically on antibiotics. He remains on anticoagulation and his INR is elevated today. I do not forsee an LP being done safely in this patient and he will likely receive a course of antibiotics. Blood cultures are pending and I will follow the results of those. Thank you for this consultation.
[2017-06-11] MEDS: VANCOMYCIN INJ 1,250 MG in SODIUM CHLORIDE 0.9% 250ML 250 ML IV SCH (11:24)
[2017-06-11] MEDS: DICLOFENAC SOD 1% GEL 100 GM TUBE EXT SCH ×3 (13:49→20:46)
[2017-06-11] MEDS ORDERED: WARFARIN SOD 4 MG TAB PO SCH (16:00)
[2017-06-11 16:21] VITALS: BP 98/59; PULSE 73; TEMP 36.9; O2SAT 93
--- NOTE | 2017-06-11 17:21 | ORTHOPEDIC CONSULTATION REPORT ---
DATE OF CONSULTATION: 06/11/2017 HISTORY OF PRESENT ILLNESS: Mr. Zhou is an 81-year-old male who is currently admitted for severe neck pain and also bilateral knee pain. The patient states he started having a severe neck pain and bilateral knee pain this past . The patient states his pain and symptoms have gotten worse to the point where he is having difficulty moving and ambulating. He is complaining of moderate stiffness throughout his body, but mostly neck and knees. The patient denies any fever, but states he had some chills. He also denies any history of prior knee pain or any arthritic issues in the past. He is normally an independent ambulator. Upon admission, the patient's neck pain has slightly resolved, he was seen by our spine physician, Dr. Blackmon who did evaluate his knees but recommended we follow up for potential arthrocentesis. PAST MEDICAL HISTORY: Atrial fibrillation, mechanical aortic valve replacement, porcine mitral valve replacement, heart disease, HLD, asthma, pulmonary nodules with mediastinal adenopathy, ALEXANDRO, BPH, and macular degeneration. FAMILY HISTORY: Positive for cancer, NH and stroke. SOCIAL HISTORY: The patient denies alcohol or tobacco use. He lives at home with his on a one floor home. ALLERGIES: CELEBREX, CYCLOBENZAPRINE, PENICILLIN, AND SIMVASTATIN. MEDICATIONS: Please see the chart. REVIEW OF SYSTEMS: See HPI. Ten other systems reviewed, all others negative. PHYSICAL EXAMINATION: GENERAL: This is a well-developed, well-nourished male who appears to be in mild discomfort. HEENT: Normocephalic, atraumatic. Mucous membranes are moist and intact. NECK: Supple, without lymphadenopathy. He is very stiff. He has very limited range of motion. Range of motion is painful. LUNGS: Clear to auscultation without wheezes or rhonchi. HEART: Irregularly irregular rhythm. No murmurs, rubs or gallops. ABDOMEN: Soft and nontender. Bowel sounds are equal and active. EXTREMITIES: No ecchymosis, redness or warmth. He has no erythema noted at the knees bilaterally. He does have moderate effusion, the right is greater than the left. He is diffusely tender around both knees. Any range of motion is painful. He can get to full extension with some discomfort, any sort of flexion reproduces pain. I am able to get him to about 30 degrees of flexion in both knees. He is very guarded. He is neurovascularly intact. Strength is +2-3/5 bilaterally. X-RAY EXAMINATION: AP and lateral views of the femur do show some moderate arthritis of the knees. No fractures or acute injury is noted. LABORATORY RESULTS: WBC 17.98. ESR 67. INR 3.7. CRP 30.5. DESCRIPTION OF PROCEDURE: The patient's bilateral knees were sterilely prepped with Betadine and alcohol. He was injected with 3 mL of lidocaine in each knee using a superiorlateral portal. Knee was reprepped sterilely with Betadine and alcohol, using an 18 gauge needle. I aspirated approximately 20 mL of cloudy fluid from the right knee and approximately 10 mL of similar fluid from the left knee. Pressure dressing was applied. The patient tolerated the procedure well. PLAN: The patient may likely have septic bilateral knees, gout, or pseudogout based on the appearance of the fluid. Until we have lab results available, patient will be made n.p.o in anticipation of I&D. If so, he will need reversal of his Coumadin. At this time, I am unsure of the source of his infections. His echocardiogram was negative. He was unable to have a lumbar puncture date to his INR. This may need to be reevaluated once his INR is reversed. He is currently receiving vancomycin and ceftriaxone, which may be continued. Again, we will hold his Coumadin and make him n.p.o. until culture and cell counts are available. WANDA
[2017-06-11] MEDS: TRAMADOL HCL 50 MG TAB PO PRN (17:30)
[2017-06-11] MEDS ORDERED: PHYTONADIONE 5 MG TAB PO STA (19:34)
--- NOTE | 2017-06-11 19:34 | Progress Note ---
Subjective Date of Service: Jun 11, 2017. Subjective Pt evaluation today including: conversation w/ patient, physical exam, chart review, lab review, review of inpatient medication list neck feeling a litlte better knees bothering him - orthospine had seen and general ortho was about to see when i sawa him notes that it all started w a myalgias/chills kind of illness then started feeling worse from ther,e but again notes he's starting to feel better Problem List Medical Problems: (1) Altered mental status Status: Acute (2) Left thigh pain Status: Acute (3) Pain Status: Acute (4) Weakness Status: Acute Review of Systems all other ROS otherwise negative except for as above Objective Vital Signs Date Time Temp Pulse Resp B/P (MAP) Pulse Ox O2 Delivery O2 Flow Rate FiO2 06/11/17 16:21 36.9 73 18 98/59 (72) 93 Room Air 06/11/17 07:35 Room Air 06/11/17 06:52 36.7 80 16 121/68 (85) 96 Room Air 06/11/17 00:35 36.9 98 18 131/75 (93) 92 Room Air 06/11/17 00:25 Room Air Physical Exam General Appearance: no apparent distress Eyes: EOMI ENT: hearing grossly normal Neck: + pertinent finding (R sided Cspine paraspinals very high tone/tender/ boggy - indirect myofascial and reciprocal inhibition - improved some) Respiratory/Chest: no respiratory distress, no accessory muscle use Neurologic/Psychiatric: 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-XII nml as tested, alert, normal mood/affect Skin: normal color, warm/dry Laboratory Results Last 24 Hours Test 06/11/17 00:24 06/11/17 06:33 06/11/17 14:32 Total Creatine Kinase 284 U/L Troponin I 0.027 ng/ml White Blood Count 17.98 K/uL Red Blood Count 4.23 M/uL Hemoglobin 13.2 g/dL Hematocrit 38.5 % Mean Corpuscular Volume 91.0 fL Mean Corpuscular Hemoglobin 31.2 pg Mean Corpuscular Hemoglobin Concent 34.3 g/dl RDW Standard Deviation 45.0 fL RDW Coefficient of Variation 13.6 % Platelet Count 226 K/uL Mean Platelet Volume 11.0 fL Erythrocyte Sedimentation Rate 67 mm/hr Prothrombin Time 37.5 SECONDS Prothromb Time International Ratio 3.7 Sodium Level 133 mmol/L Potassium Level 3.9 mmol/L Chloride Level 98 mmol/L Carbon Dioxide Level 23 mmol/L Anion Gap 12.0 mmol/L Blood Urea Nitrogen 27 mg/dl Creatinine 1.44 mg/dl Est Creatinine Clear Calc Drug Dose 46.9 ml/min Estimated GFR () 52.8 Estimated GFR (Non- 45.5 BUN/Creatinine Ratio 19.0 Random Glucose 122 mg/dl Calcium Level 9.0 mg/dl C-Reactive Protein 30.50 mg/dl Synovial Fluid Source KNEE, LEFT Synovial Fluid Color RED Synovial Fluid Appearance BLOODY Synovial Fluid WBC 68797 /uL Synovial Fluid RBC 66940 /uL Synovial Fluid Polynuclear WBCs % 90.7 % Synovial Fluid Mononuclear WBCs % 9.3 % Synovial Fluid Crystals Assessment and Plan Severe neck pain, stiffness -MRI without worrisome findings - although since after i saw him knees w inflammatory/exudative type fluid, concern would still be for infectious process -does seem most c/w torticollis type spasm -gentle OMT as above -voltaren gel -supportive care somatic dysfunction cervical -OMT as above Leukocytosis -w knees concern is due to infection -continue antibiotics and continue to follow A-fib/flutter on chronic anticoagulation, s/p mechanical aortic valve, s/p porcine mitral valve, CAD, HLD--stable -need to clarify his aortic valve - hx c/w mechanical, echo lists bioprosthetic -currently anticoagulation will need to be reversed for probable knee surgery , since unclear w valves will have to use heparin bridge; if it's clear that bioprosthetic aand coumadin purely for afib then it can be held Chronic diastolic CHF--stable, no acute exacerbation -Continue Lasix 40 mg PO qd and potassium supplement Pulmonary nodules w/mediastinal adenopathy--noted, stable for last several years ALEXANDRO--does not tolerate CPAP DVT prophylaxis -Warfarin (see above) [facility] Code Status -Level V, DO NOT RESUSCITATE
[2017-06-11 22:59] VITALS: BP 132/80; PULSE 107; TEMP 36.5; O2SAT 96
[2017-06-11 23:55] VITALS: BP 132/67; PULSE 68; TEMP 36.7; O2SAT 94
[2017-06-12] MEDS: VANCOMYCIN INJ 1,250 MG in SODIUM CHLORIDE 0.9% 250ML 250 ML IV SCH (03:54)
[2017-06-12] MEDS: CEFTRIAXONE SOD INJ 2,000 MG in DEXTROSE 5% 50ML 50 ML IV SCH ×2 (05:05→17:07)
[2017-06-12 07:09] LABS: HEMATOCRIT 34.8 % (42-52); HEMOGLOBIN 12.4 g/dL (14.0-18.0); MEAN CELL VOLUME 90.6 fL (80-100); MEAN CORPUSCULAR HEMOGLOBIN 32.3 pg (25-34); MEAN CORPUSCULAR HGB CONC 35.6 g/dl (32-36); MEAN PLATELET VOLUME 10.9 fL (7.4-10.4); PLATELET COUNT 202 K/uL (130-400); RED CELL DISTRIBUTION WIDTH CV 13.4 % (11.5-14.5); RED CELL DISTRIBUTION WIDTH SD 44.6 fL (36.4-46.3)
[2017-06-12 07:16] LABS: INR 2.2 (0.9-1.1)
[2017-06-12 07:40] LABS: CALCIUM 8.8 mg/dl (8.5-10.1); CREATININE 1.75 mg/dl (0.60-1.40); POTASSIUM 3.8 mmol/L (3.5-5.1)
[2017-06-12 08:18] VITALS: BP 138/73; PULSE 76; TEMP 36.7; O2SAT 97
[2017-06-12] MEDS ORDERED: PHYTONADIONE 5 MG TAB PO STA (08:24)
[2017-06-12] MEDS: SOTALOL HCL 80 MG TAB PO SCH (08:58)
[2017-06-12] MEDS: DICLOFENAC SOD 1% GEL 100 GM TUBE EXT SCH ×4 (08:59→21:34)
[2017-06-12] MEDS: LIDODERM (LIDOCAINE) PATCH 5% TD SCH (09:00)
[2017-06-12] MEDS: POTASSIUM CHLORIDE 20 MEQ TABCR PO SCH (10:32)
[2017-06-12] MEDS: ASPIRIN 81 MG ECTAB PO SCH (10:32)
[2017-06-12] MEDS: CEROVITE ADV FORMULA TAB PO SCH (10:33)
[2017-06-12] MEDS: ATORVASTATIN 20 MG TAB PO SCH (10:33)
[2017-06-12] MEDS: FUROSEMIDE 40 MG TAB PO SCH (10:44)
--- NOTE | 2017-06-12 10:52 | Pharmacy Progress Note ---
Pharmacy Abx Dose Short Note Date of Service Jun 12, 2017. Assessment & Plan Assessment 81 year old male receiving Vancomycin for treatment of possible meningitis Day # 3 of antimicrobial therapy. Renal function continues to decline warranting a vanc dose adjustment. Plan Vancomycin * Change to 1250 mg IV every 24 hours * Goal trough level for meningitis : 15 to 20 mcg/mL * Trough level ordered for: 06/13 @0330 * This level is not a reflection of steadystate but a marker to be used to adjust therapy given his unstable SCr. Pharmacy will continue to follow and will adjust dose/frequency as necessary. Thank you.
--- NOTE | 2017-06-12 10:53 | Orthopedic Progress Note ---
Orthopedic Progress Note Date of Service Jun 12, 2017. Subjective Reports: feeling well, Denies: chest pain, SOB, nausea / vomiting, light headedness, calf pain Additional Notes: SEEMS SLIGHTLY IMPROVED OVERALL TODAY. KNEE PAIN IS SLOWLY IMPROVING. SYNOVIAL FLUID CONSISTENT WITH PSEUDOGOUT. Objective calves soft nontender, N/V intact, capillary refill less than 2 sec., A&O x3, toes mobile MODERATE EFFUSIONS. LEFT HAS DECREASED SINCE YESTERDAY. NO ERYTHEMA. ROM STILL LIMITED BUT BETTER THAN YESTERDYA. Date Time Temp Pulse Resp B/P (MAP) Pulse Ox O2 Delivery O2 Flow Rate FiO2 06/12/17 08:18 36.7 76 16 138/73 (94) 97 Room Air 06/12/17 07:45 Room Air 06/12/17 00:05 Room Air 06/11/17 23:55 36.7 68 18 132/67 (88) 94 Room Air 06/11/17 16:54 Room Air 06/11/17 16:21 36.9 73 18 98/59 (72) 93 Room Air Laboratory Results 24 Hours: Test 06/12/17 05:59 Hematocrit 34.8 % Hemoglobin 12.4 g/dL Prothromb Time International Ratio 2.2 Prothrombin Time 22.9 SECONDS Additional Notes: GRAM STAIN- MANY POLYS, NO ORGANISMS BILATERALLY CULTURES- PENDING Assessment & Plan Assessment: PSEUDOGOUT BL KNEES Plan: WILL AWAIT FINAL CULTURES BEFORE RECOMMENDING INJECTIONS CONTINUE PAIN MANAGEMENT/NSAIDS - WILL NEED TO USE CAUTION, BUN/CR ON THE RISE. FOLLOW CULTURE RESULTS CAN HAVE A REGULAR DIET TODAY. NO PLANS FOR SURGERY AT THIS TIME UNLESS CULTURES SHOW BACTERIA.
[2017-06-12] MEDS ORDERED: SODIUM CHLORIDE 0.9% 1000ML 1,000 ML IV ONE (11:45)
[2017-06-12 12:18] LABS: INR 1.7 (0.9-1.1)
[2017-06-12] MEDS: SODIUM CHLOR 0.45% + 20MEQ KCL 1,000 ML IV SCH (14:32)
--- NOTE | 2017-06-12 14:38 | Progress Note ---
Subjective Date of Service: Jun 12, 2017. Subjective Pt evaluation today including: conversation w/ patient, physical exam, chart review, lab review pt seen in followup, at bedside. s/p b/l knee aspirations due to pain (did not mention knee pain to me on exam yesterday) elevated wbc and findings s/w pseudogout. remains on abx. all cultures negative, afebrile. neck pain improved. eating. overall feeling better. no plans for OR at this time. wbc improved. creat slightly elevated. remaining ros reviewed and are negative. Problem List Medical Problems: (1) Altered mental status Status: Acute (2) Left thigh pain Status: Acute (3) Pain Status: Acute (4) Weakness Status: Acute Objective Vital Signs Date Time Temp Pulse Resp B/P (MAP) Pulse Ox O2 Delivery O2 Flow Rate FiO2 06/12/17 08:18 36.7 76 16 138/73 (94) 97 Room Air 06/12/17 07:45 Room Air 06/12/17 00:05 Room Air 06/11/17 23:55 36.7 68 18 132/67 (88) 94 Room Air 06/11/17 16:54 Room Air 06/11/17 16:21 36.9 73 18 98/59 (72) 93 Room Air Physical Exam General Appearance: WD/WN, no apparent distress Eyes: normal inspection, EOMI Neck: supple Respiratory/Chest: lungs clear, normal breath sounds, no respiratory distress Cardiovascular: regular rate, rhythm, no edema Abdomen: non tender, soft Extremities: non-tender, no pedal edema Neurologic/Psychiatric: alert, oriented x 3 Skin: normal color Laboratory Results Item Value Date Time Gram Stain - Final Resulted 06/11/17 1432 Joint Fluid/Space (Synovial) Knee Left Gram Stain - Final Resulted 06/11/17 1432 Joint Fluid/Space (Synovial) Knee Right Blood Culture - Preliminary Resulted 06/10/17 1029 Blood NO GROWTH TO DATE. Blood Culture - Preliminary Resulted 06/10/17 1018 Blood NO GROWTH TO DATE. Last 24 Hours Test 06/12/17 05:59 06/12/17 11:40 White Blood Count 15.20 K/uL Red Blood Count 3.84 M/uL Hemoglobin 12.4 g/dL Hematocrit 34.8 % Mean Corpuscular Volume 90.6 fL Mean Corpuscular Hemoglobin 32.3 pg Mean Corpuscular Hemoglobin Concent 35.6 g/dl RDW Standard Deviation 44.6 fL RDW Coefficient of Variation 13.4 % Platelet Count 202 K/uL Mean Platelet Volume 10.9 fL Prothrombin Time 22.9 SECONDS 17.3 SECONDS Prothromb Time International Ratio 2.2 1.7 Sodium Level 130 mmol/L Potassium Level 3.8 mmol/L Chloride Level 96 mmol/L Carbon Dioxide Level 27 mmol/L Anion Gap 7.0 mmol/L Blood Urea Nitrogen 39 mg/dl Creatinine 1.75 mg/dl Est Creatinine Clear Calc Drug Dose 38.6 ml/min Estimated GFR () 41.7 Estimated GFR (Non- 36.0 BUN/Creatinine Ratio 22.3 Random Glucose 107 mg/dl Calcium Level 8.8 mg/dl Assessment and Plan (1) Pseudogout Assessment & Plan: will continue abx for now, and follow culture, if negative will stop.
[2017-06-12 15:06] VITALS: BP 115/65; PULSE 78; TEMP 37; O2SAT 93
[2017-06-12] MEDS ORDERED: HEPARIN IV LOW DOSE NO BOLUS SCH ×2 (15:30)
[2017-06-12] MEDS ORDERED: HEPARIN IV BOLUS 4,000 UNIT in SYRINGE 0 ML IV ONE (17:15)
[2017-06-12 17:43] LABS: BASO % 0.1 %; BASO ABS # 0.01 K/uL (0-0.2); HEMATOCRIT 36.2 % (42-52); HEMOGLOBIN 12.6 g/dL (14.0-18.0); IG# 0.04 K/uL (0.00-0.02); LYMPH % 4.9 %; LYMPH ABS # 0.74 K/uL (1.2-3.4); MEAN CELL VOLUME 89.4 fL (80-100); MEAN CORPUSCULAR HEMOGLOBIN 31.1 pg (25-34); MEAN PLATELET VOLUME 10.7 fL (7.4-10.4); MONO % 5.6 %; MONO ABS # 0.84 K/uL (0.11-0.59); NEUT % 89.1 %; NEUT ABS # 13.41 K/uL (1.4-6.5); PLATELET COUNT 224 K/uL (130-400); RED CELL DISTRIBUTION WIDTH CV 13.3 % (11.5-14.5); RED CELL DISTRIBUTION WIDTH SD 43.9 fL (36.4-46.3); WHITE BLOOD COUNT 15.04 K/uL (4.8-10.8)
[2017-06-12 17:54] LABS: INR 1.4 (0.9-1.1); PTT PATIENT 43.2 SECONDS (21.0-31.0)
[2017-06-12 17:58] LABS: MEAN CORPUSCULAR HGB CONC 34.8 g/dl (32-36)
[2017-06-12] MEDS: HEPARIN 25,000 UNIT/500ML D5W 500 ML IV PRN ×2 (18:11→19:22)
[2017-06-12] MEDS ORDERED: WARFARIN SOD 10 MG TAB PO ONE (19:15)
--- NOTE | 2017-06-12 19:25 | Progress Note ---
Subjective Date of Service: Jun 12, 2017. Subjective Pt evaluation today including: conversation w/ patient, physical exam, chart review, lab review, review of studies feeling a little better, neck doing a little better knees doing a little better notes he wasn't eating or drinking well no othe rnew complaints updated pt and extensively and answered all questions to the best of my ability Problem List Medical Problems: (1) Altered mental status Status: Acute (2) Left thigh pain Status: Acute (3) Pain Status: Acute (4) Weakness Status: Acute Review of Systems all other ROS otherwise negative except for as above Objective Vital Signs Date Time Temp Pulse Resp B/P (MAP) Pulse Ox O2 Delivery O2 Flow Rate FiO2 06/12/17 15:06 37.0 78 16 115/65 (82) 93 Room Air 06/12/17 08:18 36.7 76 16 138/73 (94) 97 Room Air 06/12/17 07:45 Room Air 06/12/17 00:05 Room Air 06/11/17 23:55 36.7 68 18 132/67 (88) 94 Room Air Physical Exam General Appearance: no apparent distress Eyes: EOMI ENT: hearing grossly normal Neck: trachea midline, + pertinent finding (ost/msk - R sided Cspine paraspinals high tone/tender/decreased ROM - unwinding/indirect - improved. 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 II-XII nml as tested, alert Laboratory Results Last 24 Hours Test 06/12/17 05:59 06/12/17 11:40 06/12/17 17:35 White Blood Count 15.20 K/uL 15.04 K/uL Red Blood Count 3.84 M/uL 4.05 M/uL Hemoglobin 12.4 g/dL 12.6 g/dL Hematocrit 34.8 % 36.2 % Mean Corpuscular Volume 90.6 fL 89.4 fL Mean Corpuscular Hemoglobin 32.3 pg 31.1 pg Mean Corpuscular Hemoglobin Concent 35.6 g/dl 34.8 g/dl RDW Standard Deviation 44.6 fL 43.9 fL RDW Coefficient of Variation 13.4 % 13.3 % Platelet Count 202 K/uL 224 K/uL Mean Platelet Volume 10.9 fL 10.7 fL Prothrombin Time 22.9 SECONDS 17.3 SECONDS 14.9 SECONDS Prothromb Time International Ratio 2.2 1.7 1.4 Sodium Level 130 mmol/L Potassium Level 3.8 mmol/L Chloride Level 96 mmol/L Carbon Dioxide Level 27 mmol/L Anion Gap 7.0 mmol/L Blood Urea Nitrogen 39 mg/dl Creatinine 1.75 mg/dl Est Creatinine Clear Calc Drug Dose 38.6 ml/min Estimated GFR () 41.7 Estimated GFR (Non- 36.0 BUN/Creatinine Ratio 22.3 Random Glucose 107 mg/dl Calcium Level 8.8 mg/dl Neutrophils (%) (Auto) 89.1 % Lymphocytes (%) (Auto) 4.9 % Monocytes (%) (Auto) 5.6 % Eosinophils (%) (Auto) 0.0 % Basophils (%) (Auto) 0.1 % Neutrophils # (Auto) 13.41 K/uL Lymphocytes # (Auto) 0.74 K/uL Monocytes # (Auto) 0.84 K/uL Eosinophils # (Auto) 0.00 K/uL Basophils # (Auto) 0.01 K/uL Immature Granulocyte % (Auto) 0.3 % Immature Granulocyte # (Auto) 0.04 K/uL Activated Partial Thromboplast Time 43.2 SECONDS Partial Thromboplastin Ratio 1.7 Assessment and Plan 81yo male likely initially impacted by viral illness/dehydration then declined due to spasms from dehydraiton, pseudogout. awaiting final cultures, but at this point apeparing less and less likely to be bacterial in origin Severe neck pain, stiffness -MRI without worrisome findings - although since after i saw him knees w inflammatory/exudative type fluid, concern would still be for infectious process -does seem most c/w torticollis type spasm -gentle OMT as above yet again -voltaren gel -supportive care -improving somatic dysfunction cervical -OMT as above Leukocytosis -probably relates to pseudogout knee pain / inflammation -pseudogout likely precipitated by dehydration and illness dehydration/PAOLO -likely from poor intake -hold lasix, give IVF, supportive care, follow A-fib/flutter on chronic anticoagulation, s/p mechanical aortic valve, s/p porcine mitral valve, CAD, HLD--stable -mechanical aortic valve - heparin until INR >2 again -because it appeared that knees were going to require surgery, INR was reversed, resuming coumadin since this is fortunately not the case, heparin until INR >2 Chronic diastolic CHF--stable, no acute exacerbation -as above due to dhydration hold lasix, give IVF, but follow closely Pulmonary nodules w/mediastinal adenopathy--noted, stable for last several years ALEXANDRO--does not tolerate CPAP DVT prophylaxis -Warfarin (see above) -[facility] claudio [facility] Code Status -Level V, DO NOT RESUSCITATE
[2017-06-12 19:46] VITALS: BP 117/70; PULSE 68; TEMP 36.8; O2SAT 92
[2017-06-13 00:15] VITALS: BP 125/64; PULSE 60; TEMP 36.4; O2SAT 96
[2017-06-13 00:57] LABS: PTT PATIENT 50.6 SECONDS (21.0-31.0)
[2017-06-13] MEDS: SODIUM CHLOR 0.45% + 20MEQ KCL 1,000 ML IV SCH ×3 (01:10→17:27)
[2017-06-13 03:43] LABS: HEMATOCRIT 33.4 % (42-52); HEMOGLOBIN 11.6 g/dL (14.0-18.0); MEAN CELL VOLUME 89.1 fL (80-100); MEAN CORPUSCULAR HEMOGLOBIN 30.9 pg (25-34); MEAN CORPUSCULAR HGB CONC 34.7 g/dl (32-36); MEAN PLATELET VOLUME 10.3 fL (7.4-10.4); PLATELET COUNT 236 K/uL (130-400); RED CELL DISTRIBUTION WIDTH CV 13.2 % (11.5-14.5); RED CELL DISTRIBUTION WIDTH SD 43.3 fL (36.4-46.3); WHITE BLOOD COUNT 16.06 K/uL (4.8-10.8)
[2017-06-13 03:55] LABS: CALCIUM 8.6 mg/dl (8.5-10.1); CREATININE 1.61 mg/dl (0.60-1.40); INR 1.3 (0.9-1.1); POTASSIUM 3.9 mmol/L (3.5-5.1)
[2017-06-13 03:57] LABS: PTT PATIENT 49.9 SECONDS (21.0-31.0)
[2017-06-13] MEDS ORDERED: VANCOMYCIN INJ 1,250 MG in SODIUM CHLORIDE 0.9% 250ML 250 ML IV SCH (04:00)
[2017-06-13] MEDS: CEFTRIAXONE SOD INJ 2,000 MG in DEXTROSE 5% 50ML 50 ML IV SCH (04:10)
[2017-06-13 06:52] VITALS: BP 116/75; PULSE 67; TEMP 36.4; O2SAT 95
[2017-06-13] MEDS: HEPARIN 25,000 UNIT/500ML D5W 500 ML IV PRN ×3 (07:03→19:10)
[2017-06-13] MEDS ORDERED: WARFARIN SOD 5 MG TAB PO ONE (08:15)
[2017-06-13 08:18] VITALS: BP_SYST 146; BP_SYST 148; BP_SYST 155; BP_DIAS 72; BP_DIAS 85; PULSE 55; PULSE 59; PULSE 65; O2SAT 98
[2017-06-13] MEDS: DICLOFENAC SOD 1% GEL 100 GM TUBE EXT SCH ×4 (08:35→22:05)
[2017-06-13] MEDS: ASPIRIN 81 MG ECTAB PO SCH (08:36)
[2017-06-13] MEDS: SOTALOL HCL 80 MG TAB PO SCH (08:37)
[2017-06-13] MEDS: CEROVITE ADV FORMULA TAB PO SCH (08:37)
[2017-06-13] MEDS: ATORVASTATIN 20 MG TAB PO SCH (08:37)
[2017-06-13] MEDS: POTASSIUM CHLORIDE 20 MEQ TABCR PO SCH (08:38)
[2017-06-13] MEDS: LIDODERM (LIDOCAINE) PATCH 5% TD SCH (08:39)
--- NOTE | 2017-06-13 09:48 | Pharmacy Progress Note ---
Pharmacy Antibiotic Prog Note Date of Service Jun 13, 2017. Subjective The patient is currently receiving vancomycin 1250 mg IV every 24 hours. The patient is currently on day # 4 of vancomycin IV therapy for possible meningitis. Objective Height (Feet): 5 Height (Inches): 10.00 Weight (Kilograms): 90.600 Levels: Item Value Date Time Vancomycin Level Trough 10.7 mcg/ml 06/13/17 0328 Previous dose hung 06/12 @0354. Level is not steady-state. Lab Results (24hrs): Test 06/12/17 17:35 06/13/17 00:18 06/13/17 03:28 White Blood Count 15.04 K/uL (4.8-10.8) 16.06 K/uL (4.8-10.8) Red Blood Count 4.05 M/uL (4.7-6.1) 3.75 M/uL (4.7-6.1) Hemoglobin 12.6 g/dL (14.0-18.0) 11.6 g/dL (14.0-18.0) Hematocrit 36.2 % (42-52) 33.4 % (42-52) Mean Corpuscular Volume 89.4 fL (80-100) 89.1 fL (80-100) Mean Corpuscular Hemoglobin 31.1 pg (25-34) 30.9 pg (25-34) Mean Corpuscular Hemoglobin Concent 34.8 g/dl (32-36) 34.7 g/dl (32-36) Platelet Count 224 K/uL (130-400) 236 K/uL (130-400) Mean Platelet Volume 10.7 fL (7.4-10.4) 10.3 fL (7.4-10.4) Neutrophils (%) (Auto) 89.1 % Lymphocytes (%) (Auto) 4.9 % Monocytes (%) (Auto) 5.6 % Eosinophils (%) (Auto) 0.0 % Basophils (%) (Auto) 0.1 % Neutrophils # (Auto) 13.41 K/uL (1.4-6.5) Lymphocytes # (Auto) 0.74 K/uL (1.2-3.4) Monocytes # (Auto) 0.84 K/uL (0.11-0.59) Eosinophils # (Auto) 0.00 K/uL (0-0.5) Basophils # (Auto) 0.01 K/uL (0-0.2) RDW Standard Deviation 43.9 fL (36.4-46.3) 43.3 fL (36.4-46.3) RDW Coefficient of Variation 13.3 % (11.5-14.5) 13.2 % (11.5-14.5) Immature Granulocyte % (Auto) 0.3 % Immature Granulocyte # (Auto) 0.04 K/uL (0.00-0.02) Prothrombin Time 14.9 SECONDS (9.0-12.0) 13.5 SECONDS (9.0-12.0) Prothromb Time International Ratio 1.4 (0.9-1.1) 1.3 (0.9-1.1) Activated Partial Thromboplast Time 50.6 SECONDS (21.0-31.0) 49.9 SECONDS (21.0-31.0) Partial Thromboplastin Ratio 1.9 1.9 Sodium Level 132 mmol/L (136-145) Potassium Level 3.9 mmol/L (3.5-5.1) Chloride Level 99 mmol/L (98-107) Carbon Dioxide Level 26 mmol/L (21-32) Anion Gap 7.0 mmol/L (3-11) Blood Urea Nitrogen 42 mg/dl (7-18) Creatinine 1.61 mg/dl (0.60-1.40) Est Creatinine Clear Calc Drug Dose 41.4 ml/min Estimated GFR () 46.1 Estimated GFR (Non- 39.8 BUN/Creatinine Ratio 26.4 (10-20) Random Glucose 149 mg/dl (70-99) Calcium Level 8.6 mg/dl (8.5-10.1) Vancomycin Level Trough 10.7 mcg/ml (SEE COMMENT) Creatinine a bit better. Micro Results: 06/10 blood x2 NGTD 06/11 joint fluid R knee NGTD 06/11 joint fluid L knee NGTD Recent Pertinent Medications Item Value Date Time Vancomycin HCl 530 ml @ 200 mls/hr 06/13/17 1800 1500 mg/Sodium Q20H/IV Chloride Vancomycin HCl 275 ml @ 125 mls/hr 06/13/17 0400 1250 mg/Sodium Q24H/IV 06/13/17 0409 Chloride Vancomycin HCl 275 ml @ 125 mls/hr 06/11/17 1000 1250 mg/Sodium Q18H/IV 06/12/17 0354 Chloride Ceftriaxone 70 ml @ 100 mls/hr 06/11/17 0500 Sodium 2000 mg/ Q12H/IV 06/13/17 0410 Dextrose Assessment & Plan This drug level is: Subtherapeutic, though not steady state. For meningitis would prefer trough closer to 18-20. Change to vancomycin 1500 mg IV every 20 hours. Goal trough level estimate: between 17-20 mcg/mL. Trough has been ordered for: 06/15/17 before 1000 dose. Pharmacy will continue to follow and will adjust dose/frequency as necessary. Thank you
--- NOTE | 2017-06-13 13:30 | Progress Note ---
Subjective Date of Service: Jun 13, 2017. Subjective Pt evaluation today including: conversation w/ patient, physical exam, chart review, lab review, review of inpatient medication list sittign in a chair, notes that he's starting to feel much better, knees hurting but definitely less, neck hurting but definitely less no sob no other new sx. pleased with his progress Problem List Medical Problems: (1) Altered mental status Status: Acute (2) Left thigh pain Status: Acute (3) Pain Status: Acute (4) Weakness Status: Acute Review of Systems all other ROS otherwise negative except for as above Objective Vital Signs Date Time Temp Pulse Resp B/P (MAP) Pulse Ox O2 Delivery O2 Flow Rate FiO2 06/13/17 08:18 55 148/85 (106) 98 59 146/72 (96) 65 155/85 (108) 06/13/17 08:10 Room Air 06/13/17 06:52 36.4 67 18 116/75 (89) 95 Room Air 06/13/17 00:15 36.4 60 18 125/64 (84) 96 Room Air 06/12/17 19:46 36.8 68 18 117/70 (86) 92 Room Air 06/12/17 19:30 Room Air 06/12/17 15:06 37.0 78 16 115/65 (82) 93 Room Air Physical Exam General Appearance: no apparent distress Eyes: EOMI ENT: hearing grossly normal Neck: trachea midline, + pertinent finding (ost/msk - R sided Cspine paraspinals still high tone/tender but no longer boggy and hyperacute tenderness - decreased ROM - unwinding/indirect - improved. pt tolerated well) Respiratory/Chest: no respiratory distress, no accessory muscle use Extremities: + pertinent finding (ongoing restricted movement R arm) Neurologic/Psychiatric: rug sizer II-XII nml as tested, alert, normal mood/affect Skin: normal color, warm/dry Laboratory Results Last 24 Hours Test 06/12/17 17:35 06/13/17 00:18 06/13/17 03:28 White Blood Count 15.04 K/uL 16.06 K/uL Red Blood Count 4.05 M/uL 3.75 M/uL Hemoglobin 12.6 g/dL 11.6 g/dL Hematocrit 36.2 % 33.4 % Mean Corpuscular Volume 89.4 fL 89.1 fL Mean Corpuscular Hemoglobin 31.1 pg 30.9 pg Mean Corpuscular Hemoglobin Concent 34.8 g/dl 34.7 g/dl Platelet Count 224 K/uL 236 K/uL Mean Platelet Volume 10.7 fL 10.3 fL Neutrophils (%) (Auto) 89.1 % Lymphocytes (%) (Auto) 4.9 % Monocytes (%) (Auto) 5.6 % Eosinophils (%) (Auto) 0.0 % Basophils (%) (Auto) 0.1 % Neutrophils # (Auto) 13.41 K/uL Lymphocytes # (Auto) 0.74 K/uL Monocytes # (Auto) 0.84 K/uL Eosinophils # (Auto) 0.00 K/uL Basophils # (Auto) 0.01 K/uL RDW Standard Deviation 43.9 fL 43.3 fL RDW Coefficient of Variation 13.3 % 13.2 % Immature Granulocyte % (Auto) 0.3 % Immature Granulocyte # (Auto) 0.04 K/uL Prothrombin Time 14.9 SECONDS 13.5 SECONDS Prothromb Time International Ratio 1.4 1.3 Activated Partial Thromboplast Time 43.2 SECONDS 50.6 SECONDS 49.9 SECONDS Partial Thromboplastin Ratio 1.7 1.9 1.9 Sodium Level 132 mmol/L Potassium Level 3.9 mmol/L Chloride Level 99 mmol/L Carbon Dioxide Level 26 mmol/L Anion Gap 7.0 mmol/L Blood Urea Nitrogen 42 mg/dl Creatinine 1.61 mg/dl Est Creatinine Clear Calc Drug Dose 41.4 ml/min Estimated GFR () 46.1 Estimated GFR (Non- 39.8 BUN/Creatinine Ratio 26.4 Random Glucose 149 mg/dl Calcium Level 8.6 mg/dl Vancomycin Level Trough 10.7 mcg/ml Assessment and Plan 81yo male likely initially impacted by viral illness/dehydration then declined due to spasms from dehydraiton, pseudogout. awaiting final cultures, but at this point apeparing less and less likely to be bacterial in origin Severe neck pain, stiffness -shwoing nice improvement -MRI without worrisome findings -does seem most c/w torticollis type spasm and is resolving as such -gentle OMT as above yet again -voltaren gel -supportive care -improving Cervical somatic dysfunction -OMT as above Leukocytosis -probably related to pseudogout initially, now likely relates to that (resolving ) and steroid effect knee pain / inflammation -pseudogout likely precipitated by dehydration and illness -can stop antibiotics -continue prednisone dehydration/PAOLO -likely from poor intake -holding lasix, give IVF, supportive care, follow A-fib/flutter on chronic anticoagulation, s/p mechanical aortic valve, s/p porcine mitral valve, CAD, HLD--stable -mechanical aortic valve - heparin until INR >2 again -because it appeared that knees were going to require surgery, INR was reversed, resuming coumadin since this is fortunately not the case, heparin until INR >2 Chronic diastolic CHF--stable, no acute exacerbation -holding lasix as above, no s/s decompensation Pulmonary nodules w/mediastinal adenopathy--noted, stable for last several years ALEXANDRO--does not tolerate CPAP DVT prophylaxis -Warfarin (see above) -MAITE claudio and SCDs Code Status -Level V, DO NOT RESUSCITATE
[2017-06-13] MEDS ORDERED: VANCOMYCIN TROUGH ONE (15:30)
[2017-06-13 16:10] VITALS: BP 128/70; PULSE 57; TEMP 36.7; O2SAT 98
[2017-06-13] MEDS: WARFARIN SOD 6 MG TAB PO SCH (17:25)
[2017-06-13] MEDS ORDERED: VANCOMYCIN INJ 1,500 MG in SODIUM CHLORIDE 0.9% 500ML 500 ML IV SCH (18:00)
[2017-06-14 00:10] VITALS: BP 141/65; PULSE 53; TEMP 36.5; O2SAT 96
[2017-06-14] MEDS: SODIUM CHLOR 0.45% + 20MEQ KCL 1,000 ML IV SCH ×2 (05:57→13:19)
[2017-06-14 06:02] LABS: HEMATOCRIT 34.5 % (42-52); HEMOGLOBIN 11.8 g/dL (14.0-18.0); MEAN CELL VOLUME 90.6 fL (80-100); MEAN CORPUSCULAR HGB CONC 34.2 g/dl (32-36); MEAN PLATELET VOLUME 10.5 fL (7.4-10.4); PLATELET COUNT 311 K/uL (130-400); RED CELL DISTRIBUTION WIDTH CV 13.5 % (11.5-14.5); RED CELL DISTRIBUTION WIDTH SD 44.6 fL (36.4-46.3); WHITE BLOOD COUNT 25.33 K/uL (4.8-10.8)
[2017-06-14 06:36] LABS: CALCIUM 8.5 mg/dl (8.5-10.1); CREATININE 1.38 mg/dl (0.60-1.40); POTASSIUM 3.8 mmol/L (3.5-5.1)
[2017-06-14 06:38] LABS: PTT PATIENT 50.6 SECONDS (21.0-31.0)
[2017-06-14] MEDS: HEPARIN 25,000 UNIT/500ML D5W 500 ML IV PRN (07:14)
[2017-06-14 07:48] VITALS: BP 121/66; PULSE 68; TEMP 36.4; O2SAT 95
--- NOTE | 2017-06-14 09:05 | Progress Note ---
Subjective Date of Service: Jun 14, 2017. Subjective pt on prednisone for pseudogout, afebrile. all cultures remain negative, abx stopped. wbc increased after starting steroids. no overnight events. Problem List Medical Problems: (1) Altered mental status Status: Acute (2) Left thigh pain Status: Acute (3) Pain Status: Acute (4) Weakness Status: Acute Objective Vital Signs Date Time Temp Pulse Resp B/P (MAP) Pulse Ox O2 Delivery O2 Flow Rate FiO2 06/14/17 07:48 36.4 68 18 121/66 (84) 95 Room Air 06/14/17 00:10 36.5 53 16 141/65 (90) 96 Room Air 06/13/17 19:45 Room Air 06/13/17 16:10 36.7 57 18 128/70 (89) 98 Room Air Laboratory Results Item Value Date Time Gram Stain - Final Resulted 06/11/17 1432 Joint Fluid/Space (Synovial) Knee Left Gram Stain - Final Resulted 06/11/17 1432 Joint Fluid/Space (Synovial) Knee Right Blood Culture - Preliminary Resulted 06/10/17 1029 Blood NO GROWTH TO DATE. Blood Culture - Preliminary Resulted 06/10/17 1018 Blood NO GROWTH TO DATE. Last 24 Hours Test 06/14/17 05:20 White Blood Count 25.33 K/uL Red Blood Count 3.81 M/uL Hemoglobin 11.8 g/dL Hematocrit 34.5 % Mean Corpuscular Volume 90.6 fL Mean Corpuscular Hemoglobin 31.0 pg Mean Corpuscular Hemoglobin Concent 34.2 g/dl RDW Standard Deviation 44.6 fL RDW Coefficient of Variation 13.5 % Platelet Count 311 K/uL Mean Platelet Volume 10.5 fL Activated Partial Thromboplast Time 50.6 SECONDS Partial Thromboplastin Ratio 1.9 Sodium Level 134 mmol/L Potassium Level 3.8 mmol/L Chloride Level 103 mmol/L Carbon Dioxide Level 26 mmol/L Anion Gap 5.0 mmol/L Blood Urea Nitrogen 37 mg/dl Creatinine 1.38 mg/dl Est Creatinine Clear Calc Drug Dose 48.3 ml/min Estimated GFR () 55.6 Estimated GFR (Non- 47.9 BUN/Creatinine Ratio 26.8 Random Glucose 105 mg/dl Calcium Level 8.5 mg/dl Assessment and Plan (1) Pseudogout Assessment & Plan: agree with following off of abx. no new ID recs at this time.
[2017-06-14] MEDS: ATORVASTATIN 20 MG TAB PO SCH (09:09)
[2017-06-14] MEDS: ASPIRIN 81 MG ECTAB PO SCH (09:09)
[2017-06-14] MEDS: SOTALOL HCL 80 MG TAB PO SCH (09:09)
[2017-06-14] MEDS: CEROVITE ADV FORMULA TAB PO SCH (09:09)
[2017-06-14] MEDS: POTASSIUM CHLORIDE 20 MEQ TABCR PO SCH (09:10)
[2017-06-14] MEDS: DICLOFENAC SOD 1% GEL 100 GM TUBE EXT SCH ×4 (09:11→21:54)
[2017-06-14] MEDS: LIDODERM (LIDOCAINE) PATCH 5% TD SCH (09:11)
[2017-06-14 14:41] LABS: INR 2.8 (0.9-1.1)
[2017-06-14 15:10] VITALS: BP 115/65; PULSE 61; TEMP 36.7; O2SAT 95
[2017-06-14] MEDS: WARFARIN SOD 6 MG TAB PO SCH (16:38)
[2017-06-14] MEDS ORDERED: PRED10TA PO (18:10)
[2017-06-14] MEDS ORDERED: VLTG EXT (18:10)
--- NOTE | 2017-06-14 18:17 | Discharge Instructions ---
Discharge Instructions Date of Service Jun 14, 2017. Admission Reason for Admission: Neck Pain Discharge Discharge Diagnosis / Problem: neck pain due to spasms, knee pain from pseudogout Discharge Goals Goal(s): Diagnostic testing, Therapeutic intervention Activity Recommendations Activity Limitations: resume your previous activity . Instructions / Follow-Up Instructions / Follow-Up the whole situation appears to have unfolded as such: -a viral illness (there are many going around) made you sick, then you got dehydrated from being sick as well as not being able to eat and drink as well as normal -from there, being inflamed from being sick with a virus combined with being dehydrated set off the neck muscle spasms, and being dehydrated in general allowed the pseudogout crystals to precipitate out into your knees neck pain -this is getting better -use the voltaren (diclofenac) gel four times a day until things are feeling good enough that you don't need it knee pain -from pseudogout, already getting better -we'll finish out treatment with a course of steroids - prednisone 50mg daily for three more days (the prescription was written for five days initially, but having been in the hospital a few extra days we won't need you to take the full five days sent to the pharmacy) -if needed after the prednisone, you can use the voltaren gel on your knees to continue to calm them down as well dehydration -the delicate balance is that you were dehydrated, but obviously normally take lasix (furosemide) to prevent fluid buildup related to your heart -start your lasix again tomorrow -try to drink about 60 ounces of fluid a day -have Dr Huynh check labwork (BMP) Sunday or Sunday coumadin -when it appeared that orthopedics was going to have to do a knee surgery to clean out infection, we briefly had to reverse your coumadin (in order to not cause you to have an additional day in the hospital simply related to blood thinners) - fortunately the knee surgery was not needed and your coumadin was resumed -right now your INR is 3.5 (and has been the last two days) -resume taking your coumadin as you normally do, have the coumadin clinic check you again on Sunday and then follow on from there elevated white blood cell count -this was almost certainly up first from the pseudogout, and then from the steroids. however, we never like to assume anything in medicine - so we'll want to follow your numbers back to normal. When Dr Kana Heck checks labs this week - have him also check a CBC to follow the white count Current Hospital Diet Patient's current hospital diet: AHA Diet (Heart Healthy) Discharge Diet Recommended Diet: AHA Diet (Heart Healthy) Pending Studies Studies pending at discharge: no Medical Emergencies . Who to Call and When: Medical Emergencies: If at any time you feel your situation is an emergency, please call 911 immediately. . Non-Emergent Contact Non-Emergency issues call your: Primary Care Provider . . "Provider Documentation" section prepared by Rusty Cheng. . VTE Core Measure Inpt VTE Proph given/why not?: Warfarin (Coumadin), Tyler Aguirre, SCD's
--- NOTE | 2017-06-14 20:19 | Progress Note ---
Subjective Date of Service: Jun 14, 2017. Subjective Pt evaluation today including: conversation w/ patient, conversation w/ family , physical exam, chart review, lab review, review of inpatient medication list feeling better neck pain was bada in the middel of the night but thought it was how he was laying dilauded helped and now back on track knees feeling better when seen in the AM he thought he would do well enough to be able to go home, but on revisit was unsteady on feet and he/ felt unsafe to go home - needing rehab Problem List Medical Problems: (1) Altered mental status Status: Acute (2) Left thigh pain Status: Acute (3) Pain Status: Acute (4) Weakness Status: Acute Review of Systems all other ROS otherwise negative except for as above Objective Vital Signs Date Time Temp Pulse Resp B/P (MAP) Pulse Ox O2 Delivery O2 Flow Rate FiO2 06/14/17 15:10 36.7 61 18 115/65 (82) 95 Room Air 06/14/17 08:45 Room Air 06/14/17 07:48 36.4 68 18 121/66 (84) 95 Room Air 06/14/17 00:10 36.5 53 16 141/65 (90) 96 Room Air Physical Exam General Appearance: no apparent distress Eyes: EOMI ENT: hearing grossly normal Neck: trachea midline Respiratory/Chest: no respiratory distress, no accessory muscle use Neurologic/Psychiatric: 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, alert Laboratory Results Last 24 Hours Test 06/14/17 05:20 06/14/17 14:16 White Blood Count 25.33 K/uL Red Blood Count 3.81 M/uL Hemoglobin 11.8 g/dL Hematocrit 34.5 % Mean Corpuscular Volume 90.6 fL Mean Corpuscular Hemoglobin 31.0 pg Mean Corpuscular Hemoglobin Concent 34.2 g/dl RDW Standard Deviation 44.6 fL RDW Coefficient of Variation 13.5 % Platelet Count 311 K/uL Mean Platelet Volume 10.5 fL Activated Partial Thromboplast Time 50.6 SECONDS Partial Thromboplastin Ratio 1.9 Sodium Level 134 mmol/L Potassium Level 3.8 mmol/L Chloride Level 103 mmol/L Carbon Dioxide Level 26 mmol/L Anion Gap 5.0 mmol/L Blood Urea Nitrogen 37 mg/dl Creatinine 1.38 mg/dl Est Creatinine Clear Calc Drug Dose 48.3 ml/min Estimated GFR () 55.6 Estimated GFR (Non- 47.9 BUN/Creatinine Ratio 26.8 Random Glucose 105 mg/dl Calcium Level 8.5 mg/dl Prothrombin Time 29.0 SECONDS Prothromb Time International Ratio 2.8 Assessment and Plan 81yo male likely initially impacted by viral illness/dehydration then declined due to spasms from dehydraiton, pseudogout. awaiting final cultures, but at this point apeparing less and less likely to be bacterial in origin Severe neck pain, stiffness -shwoing nice improvement -MRI without worrisome findings -does seem most c/w torticollis type spasm and is resolving as such -gentle OMT helped -voltaren gel -supportive care -improving Cervical somatic dysfunction -OMT done x several days with improvement Leukocytosis -probably related to pseudogout initially, now likely relates to that (resolving ) and steroid effect -today worsening likely steroids + large BM diarrhea -only x 1, low risk for Cdiff on clinical presentation, will follow weakness -unfortunately while initially appearing steady for home, likely to need rehab knee pain / inflammation -pseudogout likely precipitated by dehydration and illness -continue prednisone -improving dehydration/PAOLO -likely from poor intake -holding lasix, was on IVF will hold now, supportive care, follow A-fib/flutter on chronic anticoagulation, s/p mechanical aortic valve, s/p porcine mitral valve, CAD, HLD--stable -mechanical aortic valve - heparin until INR >2 again (happened late today - stop heparin) -follow INR Chronic diastolic CHF--stable, no acute exacerbation -holding lasix as above, no s/s decompensation, doing well Pulmonary nodules w/mediastinal adenopathy--noted, stable for last several years ALEXANDRO--does not tolerate CPAP DVT prophylaxis -Warfarin (see above) -MAITE claudio and SCDs Code Status -Level V, DO NOT RESUSCITATE
[2017-06-15 00:19] VITALS: BP 123/67; PULSE 56; TEMP 36.6; O2SAT 97
[2017-06-15 07:04] VITALS: BP 134/75; PULSE 51; TEMP 36.6; O2SAT 99
[2017-06-15 07:11] LABS: INR 3.5 (0.9-1.1)
[2017-06-15] MEDS: DICLOFENAC SOD 1% GEL 100 GM TUBE EXT SCH ×4 (09:23→21:00)
[2017-06-15] MEDS: ASPIRIN 81 MG ECTAB PO SCH (09:23)
[2017-06-15] MEDS: ATORVASTATIN 20 MG TAB PO SCH (09:24)
[2017-06-15] MEDS: POTASSIUM CHLORIDE 20 MEQ TABCR PO SCH (09:24)
[2017-06-15] MEDS: CEROVITE ADV FORMULA TAB PO SCH (09:25)
[2017-06-15] MEDS: LIDODERM (LIDOCAINE) PATCH 5% TD SCH (09:26)
[2017-06-15 09:27] VITALS: BP 121/54; PULSE 56
[2017-06-15] MEDS: SOTALOL HCL 80 MG TAB PO SCH (09:28)
[2017-06-15] MEDS ORDERED: VANCOMYCIN TROUGH ONE (09:30)
[2017-06-15 16:20] VITALS: BP 165/73; PULSE 56; TEMP 36.7; O2SAT 96
--- NOTE | 2017-06-15 18:53 | Progress Note ---
Subjective Date of Service: Jun 15, 2017. Subjective Pt evaluation today including: conversation w/ patient, physical exam, chart review, lab review, review of inpatient medication list feeling better knees better although asks why they're swollen then connects pseudogout to the swelling neck doing better moving better less pain less stiffness still feels will need rehab - he's OK w SNF or [facility] depending on who can take him Problem List Medical Problems: (1) Altered mental status Status: Acute (2) Left thigh pain Status: Acute (3) Pain Status: Acute (4) Weakness Status: Acute Review of Systems all other ROS otherwise negative except for as above Objective Vital Signs Date Time Temp Pulse Resp B/P (MAP) Pulse Ox O2 Delivery O2 Flow Rate FiO2 06/15/17 16:20 36.7 56 18 165/73 (103) 96 Room Air 06/15/17 09:27 56 121/54 (76) 06/15/17 07:15 Room Air 06/15/17 07:04 36.6 51 17 134/75 (94) 99 Room Air 06/15/17 00:19 36.6 56 18 123/67 (85) 97 Room Air 06/14/17 23:30 Room Air Physical Exam General Appearance: no apparent distress Eyes: EOMI ENT: hearing grossly normal Neck: trachea midline, + pertinent finding (ROM continues to improve) Respiratory/Chest: no respiratory distress, no accessory muscle use Neurologic/Psychiatric: 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 awaiting final cultures, but at this point apeparing less and less likely to be bacterial in origin Severe neck pain, stiffness -showing nice improvement, ongoing improvement every day -MRI without worrisome findings -does seem most c/w torticollis type spasm and is resolving as such -gentle OMT helped -voltaren gel -supportive care -improving day to day Cervical somatic dysfunction -OMT done x several days with improvement Leukocytosis -probably related to pseudogout initially, now likely relates to that (resolving ) and steroid effect -no s/s infection -obviously will need to follow periodically to normal diarrhea -only x 1, low risk for Cdiff on clinical presentation, resolved weakness -unfortunately while initially appearing steady for home, likely to need rehab - working on options, stable to discharge once approved, notes and he agrees not safe in home environemnt in current status knee pain / inflammation -pseudogout likely precipitated by dehydration and illness -continue prednisone start to taper in next few days -improving dehydration/PAOLO -likely from poor intake -holding lasix, was on IVF will hold now, supportive care, follow periodic BMP R arm weakness - ongoing for most of the last year he notes A-fib/flutter on chronic anticoagulation, s/p mechanical aortic valve, s/p porcine mitral valve, CAD, HLD--stable -coumadin, follow INR Chronic diastolic CHF--stable, no acute exacerbation -holding lasix as above, no s/s decompensation, doing well, probably resume lasix in 1-2 days Pulmonary nodules w/mediastinal adenopathy--noted, stable for last several years ALEXANDRO--does not tolerate CPAP DVT prophylaxis -Warfarin (see above) -MAITE claudio and SCDs Code Status -Level V, DO NOT RESUSCITATE
[2017-06-15 19:30] VITALS: BP 130/61; PULSE 54; O2SAT 96
[2017-06-15 22:58] VITALS: BP 150/69; PULSE 57; TEMP 36.8; O2SAT 96
[2017-06-16 07:13] VITALS: BP 137/60; PULSE 52; TEMP 36.5; O2SAT 98
[2017-06-16 07:39] LABS: INR 3.5 (0.9-1.1)
[2017-06-16] MEDS: LIDODERM (LIDOCAINE) PATCH 5% TD SCH (09:00)
[2017-06-16] MEDS: DICLOFENAC SOD 1% GEL 100 GM TUBE EXT SCH ×2 (09:26→13:14)
[2017-06-16] MEDS: SOTALOL HCL 80 MG TAB PO SCH (09:29)
[2017-06-16] MEDS: ASPIRIN 81 MG ECTAB PO SCH (09:29)
[2017-06-16] MEDS: POTASSIUM CHLORIDE 20 MEQ TABCR PO SCH (09:30)
[2017-06-16] MEDS: CEROVITE ADV FORMULA TAB PO SCH (09:30)
[2017-06-16] MEDS: ATORVASTATIN 20 MG TAB PO SCH (09:30)
[2017-06-16 10:35] VITALS: BP 137/60; PULSE 52; TEMP 36.5; O2SAT 98
--- NOTE | 2017-06-16 19:31 | Discharge Summary ---
Discharge Summary Date of Service Jun 16, 2017. Discharge Summary Admission Date: Jun 10, 2017 at 19:03 Discharge Date: Jun 16, 2017 Discharge Disposition: Home with services Principal Diagnosis: viral illness, dehydration, neck spasms, pseudogout Immunizations: Have You Had Influenza Vaccine: Yes Influenza Vaccine Date: Mar 06, 2013 History of Tetanus Vaccine?: Unknown History of Pneumococcal: Yes Pneumococcal Date: Aug 04, 2012 History of Hepatitis B Vaccine: Unknown Procedures: aspiration of knees showing pseudogout crystals OMT for neck blood cultures negative to date imaging of Cspine, Tspine, Lspine including MRI showing chronic arthritic type changes no acute findings of concern echo: Interpretation Summary Name: ALESSANDRO MONTERO Study Date: 06/10/2017 01:21 PM BP: 123/66 mmHg Patient Location: [facility] HR: 75 : 1935 (M/d/yyyy) Gender: Male Height: 70 in Age: 81 yrs Ethnicity: [place] Weight: 205 lb Ordering Physician: Emmanuel Manning Referring Physician: Self, Referred Performed By: Rossy Hogan [facility] Reason For Study: VALVULAR HEART DISEASE BSA: 2.1 m2 -- Conclusions -- No significant change compared to previous study of 12/29/15. Normal LV chamber size with mild concentric LVH. Normal LV systolic function, EF 60-65%. No segmental left ventricular wall motion abnormalities are noted. Grade I diastolic dysfunction. There is a bioprosthetic aortic valve. Doppler evidence of regurgitation is probably normal for this prosthetic aortic valve. The gradient is normal for this prosthetic aortic valve. There is a bioprosthetic mitral valve. Prosthetic mitral valve peak and/or mean gradients are normal. Mitral prosthetic valvular gradients have increased compared to previous study of , however, still within normal range. Mild left atrial enlargement. Procedure Details A complete two-dimensional transthoracic echocardiogram was performed (2D, M- mode, Doppler and color flow Doppler). Left Ventricle The left ventricle is normal in size. There is mild concentric left ventricular hypertrophy. Left ventricular systolic function is normal. No segmental left ventricular wall motion abnormalities are noted. Ejection Fraction = 60-65%. The left ventricular wall motion is normal. Right Ventricle The right ventricular cavity size is normal (basal dimension <4.2 cm in right ventricular apical 4-chamber view). The right ventricular systolic function is normal as assessed by tricuspid annular plane systolic excursion (TAPSE) (normal >1.5 cm). Atria The left atrium is mildly dilated. Right atrial size is normal. No ASD detected; PFO is not assessed. Mitral Valve There is no mitral regurgitation noted. There is a bioprosthetic mitral valve. Prosthetic mitral valve peak and/or mean gradients are normal. Mitral prosthetic valvular gradients have increased compared to previous study of 12/29/15, however, still within normal range. Aortic Valve There is a bioprosthetic aortic valve. Doppler evidence of regurgitation is probably normal for this prosthetic aortic valve. The gradient is normal for this prosthetic aortic valve. Pulmonic Valve The pulmonary valve is not well seen, but the Doppler examination is normal without significant regurgitation or stenosis. Consultations: ortho spine - no acute spine issues identified ortho - aspirated knees ID - agreed w stopping abx once cultures were negative Medication Reconciliation New Medications: Diclofenac Sod (Voltaren) 100 Appln/100 Gm Gel 1 GM EXT QID, #100 GM Prednisone Tab (Prednisone) 10 Mg Tab 10 MG PO UD, #25 TAB take 5 pills PO daily x 5 days Continued Medications: Aspirin (Aspirin Chewable) 81 Mg Chew 81 MG PO DAILY Atorvastatin (Lipitor) 20 Mg Tab 20 MG PO DAILY, TAB Furosemide (Lasix) 40 Mg Tab 40 MG PO DAILY, TAB Multiple Vitamin (Multi Vitamin Daily) 1 Tab Tab 1 TAB PO DAILY Ocuvite Preservision (Ocuvite Preservision) 1 Tab Tab 1 TAB PO DAILY, TAB Potassium Ext Rel (Klor-Con) 20 Meq Tabcr 20 MEQ PO DAILY, TAB Ranibizumab (Lucentis) 0.5 Mg/0.05 Ml Mami 1 DOSE INJ 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 Sotalol Hcl (Sotalol Hcl) 80 Mg Tab 40 MG PO DAILY for 90 Days, #45 TAB 3 Refills Tramadol (Ultram) 50 Mg Tab 100 MG PO Q4H PRN for Pain, #30 TAB Warfarin Sod (Jantoven) 2 Mg Tab 6 MG PO 5XWK, TAB 6 mg on ////Hill Warfarin Sodium (Warfarin Sodium) 2 Mg Tab 8 MG PO 2XWK for 90 Days, TAB 1 Refill 8 mg on Sunday/Sunday Discharge Exam Physical Exam: General Appearance: no apparent distress Eyes: EOMI Neck: trachea midline, + pertinent finding (fairly good AROM of neck now) Respiratory/Chest: no respiratory distress, no accessory muscle use Extremities: normal inspection Neurologic/Psychiatric: 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 Severe neck pain, stiffness -showing nice improvement, ongoing improvement every day -MRI without worrisome findings -does seem most c/w torticollis type spasm and is resolving as such -gentle OMT helped -voltaren gel -supportive care -improving day to day -stable for home Cervical somatic dysfunction -OMT done x several days with improvement Leukocytosis -probably related to pseudogout initially, now likely relates to that (resolving ) and steroid effect -no s/s infection -obviously will need to follow periodically to normal - next CBC in the office this week diarrhea -only x 1, low risk for Cdiff on clinical presentation, resolved weakness -with treatment of pseudogout and neck pain - he's improved to where he is safe to go home -asked for home health/home PT referral knee pain / inflammation -pseudogout likely precipitated by dehydration and illness -prednisone -improving dehydration/PAOLO -likely from poor intake -BMP improved. repeat this coming week -start previous home dosing of lasix tomorrow R arm weakness - ongoing for most of the last year he notes A-fib/flutter on chronic anticoagulation, s/p mechanical aortic valve, s/p porcine mitral valve, CAD, HLD--stable -coumadin, follow INR next week - d/w pt current INR 3.5 Chronic diastolic CHF--stable, no acute exacerbation -no s/s decompensation, doing well, probably resume lasix tomorrow BMP in the office next week Pulmonary nodules w/mediastinal adenopathy--noted, stable for last several years ALEAXNDRO--does not tolerate CPAP DVT prophylaxis -Warfarin (see above) -MAITE claudio and SCDs Code Status -Level V, DO NOT RESUSCITATE stable for home Total Time Spent: Greater than 30 minutes This includes examination of the patient, discharge planning, medication reconciliation, and communication with other providers. Discharge Instructions Please refer to the electronic Patient Visit Report (Discharge Instructions) for additional information. Additional Copies To Deric Wilkes M.D.
== END 2017-06-16 14:11 | disposition home health service (06) | DRG 552 ==
LOC: EDBD 07:32 → C.EDB 07:33 → C.3E 13:08 → ENRESERV 13:37 → C.3E 18:58 → OBSVTOIN 19:03
PROVIDERS: ADMIT Family Medicine; ATTEND Family Medicine
PROC: 0S9C3ZX Drainage of Right Knee Joint, Percutaneous Approach, Diagnostic (ICD-10-PCS; principal; 2017-06-11)
PROC: 0S9D3ZX Drainage of Left Knee Joint, Percutaneous Approach, Diagnostic (ICD-10-PCS; principal; 2017-06-11)
DX: M54.2 Cervicalgia (principal); I48.92 Unspecified atrial flutter; I50.32 Chronic diastolic (congestive) heart failure; N17.9 Acute kidney failure, unspecified; B34.9 Viral infection, unspecified; E86.0 Dehydration; M43.6 Torticollis; M99.01 Segmental and somatic dysfunction of cervical region; M11.261 Other chondrocalcinosis, right knee; M11.262 Other chondrocalcinosis, left knee; D72.829 Elevated white blood cell count, unspecified; R53.1 Weakness; R19.7 Diarrhea, unspecified; I48.91 Unspecified atrial fibrillation; I25.10 Atherosclerotic heart disease of native coronary artery without angina pectoris; E78.5 Hyperlipidemia, unspecified; R91.8 Other nonspecific abnormal finding of lung field; R59.0 Localized enlarged lymph nodes; G47.33 Obstructive sleep apnea (adult) (pediatric); H35.3290 Exudative age-related macular degeneration, unspecified eye, stage unspecified; Z66 Do not resuscitate; Z95.2 Presence of prosthetic heart valve; Z95.3 Presence of xenogenic heart valve; Z79.01 Long term (current) use of anticoagulants; Z79.82 Long term (current) use of aspirin; Z79.899 Other long term (current) drug therapy; Z88.0 Allergy status to penicillin; Z88.8 Allergy status to other drugs, medicaments and biological substances; Z82.49 Family history of ischemic heart disease and other diseases of the circulatory system; Z82.3 Family history of stroke

== ENCOUNTER → 2017-06-21 | Outpatient (CLI) | payer MEDICARE ==
[~2017-06-21] MED LIST changes: -OXYC-57 PO; +PRED10TA PO; +VLTG EXT; +WARF4TAB43 PO
[2017-06-21 15:13] LABS: HEMATOCRIT 40.6 % (42-52); HEMOGLOBIN 13.7 g/dL (14.0-18.0); MEAN CELL VOLUME 92.7 fL (80-100); MEAN CORPUSCULAR HEMOGLOBIN 31.3 pg (25-34); MEAN CORPUSCULAR HGB CONC 33.7 g/dl (32-36); MEAN PLATELET VOLUME 10.3 fL (7.4-10.4); PLATELET COUNT 407 K/uL (130-400); RED CELL DISTRIBUTION WIDTH CV 14.5 % (11.5-14.5); RED CELL DISTRIBUTION WIDTH SD 48.7 fL (36.4-46.3)
[2017-06-21 15:20] LABS: ALBUMIN 2.8 gm/dl (3.4-5.0); ALT/SGPT 55 U/L (12-78); AST/SGOT 16 U/L (15-37); BLOOD UREA NITROGEN 38 mg/dl (7-18); CALCIUM 8.6 mg/dl (8.5-10.1); CARBON DIOXIDE 30 mmol/L (21-32); CREATININE 1.58 mg/dl (0.60-1.40); GLUCOSE 94 mg/dl (70-99); POTASSIUM 3.9 mmol/L (3.5-5.1); SODIUM 136 mmol/L (136-145)
[2017-06-21 15:23] LABS: ALKALINE PHOSPHATASE 71 U/L (45-117); TOTAL PROTEIN 7.3 gm/dl (6.4-8.2)
[2017-06-21 16:15] LABS: BASO % 0.1 %; BASO ABS # 0.04 K/uL (0-0.2); EOS % 0.4 %; EOS ABS # 0.12 K/uL (0-0.5); IG# 0.64 K/uL (0.00-0.02); LYMPH % 5.3 %; LYMPH ABS # 1.47 K/uL (1.2-3.4); MONO % 9.5 %; MONO ABS # 2.65 K/uL (0.11-0.59); NEUT % 82.4 %; NEUT ABS # 23.08 K/uL (1.4-6.5)
== END | disposition home or self-care (01) ==
LOC: C.LABSPEC 15:00
PROVIDERS: ATTEND Internal Medicine
DX: I10 Essential (primary) hypertension (principal); I48.0 Paroxysmal atrial fibrillation; M11.20 Other chondrocalcinosis, unspecified site

== ENCOUNTER → 2017-07-02 | Outpatient (CLI) | payer MEDICARE ==
[2017-07-02 13:38] LABS: BASO % 0.3 %; BASO ABS # 0.02 K/uL (0-0.2); EOS % 3.9 %; HEMATOCRIT 36.3 % (42-52); HEMOGLOBIN 12.1 g/dL (14.0-18.0); IG# 0.01 K/uL (0.00-0.02); LYMPH % 11.9 %; LYMPH ABS # 0.91 K/uL (1.2-3.4); MEAN CELL VOLUME 91.4 fL (80-100); MEAN CORPUSCULAR HEMOGLOBIN 30.5 pg (25-34); MEAN CORPUSCULAR HGB CONC 33.3 g/dl (32-36); MEAN PLATELET VOLUME 10.6 fL (7.4-10.4); MONO % 22.1 %; MONO ABS # 1.69 K/uL (0.11-0.59); NEUT % 61.7 %; NEUT ABS # 4.73 K/uL (1.4-6.5); PLATELET COUNT 228 K/uL (130-400); RED CELL DISTRIBUTION WIDTH CV 14.3 % (11.5-14.5); RED CELL DISTRIBUTION WIDTH SD 48.2 fL (36.4-46.3); WHITE BLOOD COUNT 7.66 K/uL (4.8-10.8)
== END | disposition home or self-care (01) ==
LOC: C.LABSPEC 12:54
PROVIDERS: ATTEND Internal Medicine
DX: D72.829 Elevated white blood cell count, unspecified (principal)

== ENCOUNTER 2021-07-12 12:11 | Inpatient (IN) ==
[2021-07-12] MEDS ORDERED: SODIUM CHLORIDE 0.9% 1000ML 1,000 ML IV SCH (13:00)
[2021-07-12 13:13] LABS: Hematocrit (blood only) 40.7 % (42-52); Hemoglobin 13.9 g/dL (14.0-18.0); Mean Corpuscular Hemoglobin 31.9 pg (25-34); Mean Corpuscular Hgb Conc 34.2 g/dL (32-36); Mean Corpuscular Volume 93.3 fL (80-100); Mean Platelet Volume 10.4 fL (7.4-10.4); Platelet Count 273 K/uL (130-400); RDW Coefficient of Variation 13.5 % (11.5-14.5); RDW Standard Deviation 46.4 fL (36.4-46.3); Red Blood Count 4.36 M/uL (4.7-6.1); White Blood Count 15.43 K/uL (4.8-10.8)
--- NOTE | 2021-07-12 13:23 | XRay Report ---
XR chest 1V portable HISTORY: weakness COMPARISON: Chest 06/10/2017. FINDINGS: No pneumothorax. The cardiac silhouette remains mildly enlarged. There are poststernotomy c hanges and a cardiac valve prosthesis again noted. Calcifications within the aortic knob. Bilateral p erihilar interstitial/vascular thickening persists and favors developing congestive change. No new fo rajendra lung consolidations identified. No significant pleural fusions. IMPRESSION: 1. Cardiomegaly with developing congestive change. 2. No new focal lung consolidations. ACT 112: Negative or not required by law. Electronically signed by: Andrea Sahu M.D. 07/12/2021 1:22 PM
[2021-07-12 13:30] LABS: Albumin Globulin Ratio 0.9 (0.9-2); Albumin Level 3.5 gm/dl (3.4-5.0); BUN Creatinine Ratio 20.5 (10-20); Basophils # (auto) 0.01 K/uL (0-0.2); Basophils % (auto) 0.1 %; Bilirubin,Total 0.6 mg/dl (0.2-1.0); Calcium 8.9 mg/dl (8.5-10.1); Eosinophils # (auto) 0.05 K/uL (0-0.5); Eosinophils % (auto) 0.3 %; Est GFR (Non-African American) 49.2 ml/min; Globulin 3.7 gm/dl (2.5-4.0); Immature Granulocytes # (auto) 0.03 K/uL (0.00-0.02); Immature Granulocytes % (auto) 0.2 %; Lymphocytes # (auto) 1.61 K/uL (1.2-3.4); Lymphocytes % (auto) 10.4 %; Magnesium 1.8 mg/dl (1.7-2.4); Neutrophils # (auto) 10.03 K/uL (1.4-6.5); Potassium 4.6 mmol/L (3.5-5.1); Total Protein 7.2 gm/dl (6.0-8.3)
[2021-07-12 14:34] LABS: Troponin I 0.03 ng/ml (0-0.04)
--- NOTE | 2021-07-12 14:52 | CT Scan Report ---
HEAD CT NONCONTRAST CT DOSE: 537.48 mGy.cm HISTORY: Generalized weakness TECHNIQUE: Multiaxial CT images of the head were performed without the use of intravenous contrast. A utomated exposure control was utilized for this study. A dose lowering technique was utilized adheri ng to the principles of ALARA. Comparison: Head CT 06/10/2017. Findings: The paranasal sinuses and mastoid air cells are clear. The calvarium and skull base are int act. There is no mass, hematoma, midline shift, acute infarct. Atrophy and microvascular ischemic timbo nges are again noted. Stable mild ventriculomegaly. Impression: No significant change compared to the prior study. No acute intracranial abnormality. ACT 112: Negative or not required by law. Electronically signed by: Andrea Sahu M.D. 07/12/2021 2:50 PM
[2021-07-12 16:50] LABS: Appearance Urine Clear (Clear); Bacteria Urine Automated Negative (Negative); Bilirubin Urine Negative (Negative); Blood Urine Negative (Negative); Color Urine Yellow; Glucose Urine UA Negative (Negative); Ketones Urine Negative (Negative); Leukocyte Esterase Urine Negative (Negative); Nitrite Urine Negative (Negative); Protein Urine 1+ (Negative); RBC Urine Automated 0-4 /hpf (0-4); Specific Gravity Urine 1.019 (1.000-1.030); Urobilinogen Urine Negative (Negative); pH Urine 5.5 (4.5-7.5)
--- NOTE | 2021-07-12 16:53 | Emergency Department Note ---
Impression & Plan Generalized weakness, Leukocytosis, Dehydration, Acute confusion ED Provider Note INFORMANT: Patient and significant other ED PROVIDER(S): Brett Suárez MD CHIEF COMPLAINT: Weakness PLAN: Disposition: Admitted Condition: Good Outpatient prescription management: none Referral: None MEDICAL DECISION MAKING: Patient presented with progressive weakness but acute confusion well. He was improved by time he arrived to the emergency department regarding the confusion but was still generally weak. There is no apparent focal findings on examination. He had a leukocytosis found on CBC. Patient had mild dehydration on chemistry panel. He was hydrated with normal saline. CBC also showed a mild anemia. Troponin was negative. His ECG showed some nonspecific changes but no acute ST elevation or depression. Head CT was negative and chest x-ray showed cardiomegaly. Urinalysis performed and revealed no significant signs of infection. Blood cultures and procalcitonin ordered. At this point given the decline of the patient and his confusion today further management and observ ation in the hospital is felt to be appropriate. I discussed this with the patient and significant other. Consultation was placed with the [facility]. Case was discussed with Dr. Guzmán. Patient was evaluated for further management. Triage Nursing notes reviewed and agree them. Vital Signs: reviewed and remarkable for no significant abnormalities Differential diagnosis: Infection, dehydration, metabolic abnormality, hypo/hyperglycemia, electrolyte disturbance, anemia, hypoxia, cardiac sources, intracerebral event, toxicologic, neurologic, as well as other pathologies. Diagnostics interpreted by me: ECG: Twelve-lead ECG reveals sinus rhythm with sinus arrhythmia and first-degree block at 63 bpm. There is anterior Q waves present. Nonspecific ST. No ST elevation. No PVCs. Cardiac Monitoring: Cardiac monitoring ordered by me: The patient was placed on continuous cardiac monitoring and observed. It revealed a normal sinus rhythm at 62 beats per minute without ectopy or evidence of dysrhythmia. Imaging studies: Head CT: A noncontrast CT scan of the head was performed and was negative for tumor, fracture, intracranial hemorrhage, or other acute pathology. Chest x-ray. Findings: A chest x-ray was performed and revealed no pneumothorax, effusion, infiltrate, pulmonary edema, free air under the diaphragm, or wide mediastinum. Cardiomegaly noted. HPI: The patient is a 85 year old male who presents to the Emergency Room with complaints of weakness. This started several days ago and culminated this morning with some confusion and more weakness resulting in difficulty getting into and out of the car. Because of this EMS was summoned and patient was bro ught to the ER. Patient significant other notes that he has been having trouble sleeping. He also has been having urinary frequency and that they attributed to diuretic use. He has been dealing with a right rotator cuff injury that has been causing him a lot of pain. He also has macular degeneration and he was on his way to the retail coverage merchandiser for treatment this morning when the symptoms were escalating. He went through the injection and then he worsened. Significant other notes that he was having some mild confusion prior to the procedure. He was so weak that he had to be assisted into the vehicle by staff at the ophthalmology office. The patient has been given no medication prehospital for relieving factors. Current pain is rated as 6/10. Patient has been using tramadol for his right shoulder pain. Pt denies LOC, headache, fevers, chills, diaphoresis, visual changes, neck pain, chest pain, breathing difficulties, nausea, vomiting, abdominal pain, back pain, melena, hematochezia, numbness, lymphadenopathy, rash, or other complaints. ROS: See above HPI for pertinent positives & negatives. A total of 10 systems reviewed and were otherwise negative. PAST MEDICAL HISTORY:See Below , CHF, CAD PAST SURGICAL HISTORY:See Below, FAMILY HISTORY:See Below SOCIAL HISTORY:See Below, retired HOME MEDICATIONS:See Below ALLERGIES:See Below VITALS:See Below PHYSICAL EXAMINATION: GENERAL: Awake, tired-appearing, in no distress HENT: Normocephalic, atraumatic. Oropharynx unremarkable. EYES: Normal conjunctiva. Sclera non-icteric. Left pupil dilated. Right pupil round and reactive. NECK: Inspection normal. Non-tender. Supple. No nuchal rigidity. FROM. No masses. RESPIRATORY: Clear to auscultation. No wheezes. No rales. Normal respiratory effort. CARDIAC: Normal rate. Normal rhythm. No murmurs. No rubs. Extremities warm and well perfused. Pulses equal. No JVD. GI: Soft, non-distended. No tenderness to palpation. No rebound or guarding. No masses. RECTAL: Deferred. MUSCULOSKELETAL: Atraumatic. There is limited range of motion of the right shoulder which the patient states is chronic. Chest examination reveals no te nderness. The back is symmetrical on inspection without obvious abnormality. There is no CVA tenderness to palpation. No joint edema. LOWER EXTREMITIES: Calves are equal size bilaterally and non-tender. No edema. No discoloration. NEURO: Slow to answer questions but generally normal sensorium. No focal sensory or motor deficits noted. SKIN: No rash or jaundice noted. Bertt Suárez MD Past Med/Surg History Medical History History of atrial fibrillation History of cardioversion Hx of cardiac murmur Hypertension Macular degeneration Restless leg syndrome Ventral hernia Surgical History History of aortic valve replacement History of colonoscopy History of inguinal hernia repair History of left cataract surgery History of mitral valve replacement History of tooth extraction History of vasectomy Family History Other Heart disease Social History Smoking Status: Never smoker Second Hand Exposure: No; Hx Alcohol Use: Yes Alcohol type: wine Hx Substance Use: No Preferred Language: Belarusian Communication Ability: Effective Waste Examiner Required: No Beliefs That Will Affect Care: None marital status: Current Living Situation: Spouse current occupational status: employed 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 Feels Safe at Home: Yes Assistive Devices: Glasses Allergies Allergies Allergy/AdvReac Type Severity Reaction Status Date / Time Penicillins Allergy Mild RASH Verified 07/12/21 15:54 celecoxib [From Celebrex] Allergy Unknown Verified 07/12/21 15:54 cyclobenzaprine Allergy Unknown Verified 07/12/21 15:54 [From Flexeril] simvastatin AdvReac Mild MUSCLE PAIN Verified 07/12/21 15:54 Home Meds Home Medications Medication Instructions Recorded Confirmed atorvastatin 20 mg tablet 20 mg PO HS 03/04/19 07/12/21 furosemide 40 mg tablet 20 mg PO QAM 03/04/19 07/12/21 potassium chloride 20 mEq oral 20 meq PO QAM 11/12/19 07/12/21 packet (Klor-Con) sotalol 80 mg tablet 40 mg PO QAM 11/12/19 07/12/21 vit C,E,zinc,copper-hckkm4a 250 2 cap PO QAM 11/12/19 07/12/21 mg-lutein 5 mg-zeaxanthin 1 mg capsule (Ocuvite Adult 50 Plus) tramadol 50 mg tablet 50 mg PO Q6 PRN 07/12/21 07/12/21 warfarin 2 mg tablet 4 - 6 mg PO UD 07/12/21 07/12/21 Results & Data (ED) Vital Signs Vital Signs - 24 hr 07/12/21 12:39 07/12/21 12:43 07/12/21 15:13 Temperature 36.6 C Temperature Source Oral Pulse Rate 68 62 Pulse Rate [Left] Pulse Rhythm Regular Regular Pulse Rhythm [Left] Pulse Strength Normal Pulse Strength [Left] Respiratory Rate 18 18 Respiratory Effort / Characteristics Non-Labored Spontaneous Respiratory Depth Normal Respiratory Pattern Regular Blood Pressure 124/61 Blood Pressure [Left Arm] Blood Pressure Mean 82 Blood Pressure Mean [Left Arm] Blood Pressure Position Lying Pulse Oximetry 96 96 95 Oxygen Delivery Method Room Air Room Air Room Air Oxygen Flow Rate 0 Fraction of Inspired Oxygen 0 Sepsis Recent Fever Within 48 Hours No Sepsis New/Unexplained Change in Mental Status N/A Sepsis Action Taken by Nursing No Action Required 07/12/21 15:58 Temperature Temperature Source Pulse Rate Pulse Rate [Left] 62 Pulse Rhythm Pulse Rhythm [Left] Regular Pulse Strength Pulse Strength [Left] Normal Respiratory Rate 18 Respiratory Effort / Characteristics Non-Labored Spontaneous Respiratory Depth Normal Respiratory Pattern Blood Pressure Blood Pressure [Left Arm] 125/66 Blood Pressure Mean Blood Pressure Mean [Left Arm] 85 Blood Pressure Position Pulse Oximetry 96 Oxygen Delivery Method Room Air Oxygen Flow Rate Fraction of Inspired Oxygen Sepsis Recent Fever Within 48 Hours Sepsis New/Unexplained Change in Mental Status Sepsis Action Taken by Nursing Laboratory Data Result diagrams: 07/12/21 12:42 07/12/21 12:42 Lab Results 07/12/21 07/12/21 07/12/21 Range/Units 12:42 12:42 12:42 WBC 15.43 H (4.8-10.8) K/uL RBC 4.36 L (4.7-6.1) M/uL Hgb 13.9 L (14.0-18.0) g/dL Hct 40.7 L (42-52) % MCV 93.3 (80-100) fL MCH 31.9 (25-34) pg MCHC 34.2 (32-36) g/dL RDW Std Deviation 46.4 H (36.4-46.3) fL RDW Coeff of Cresencio 13.5 (11.5-14.5) % Plt Count 273 (130-400) K/uL MPV 10.4 (7.4-10.4) fL Immature Gran % (Auto) 0.2 % Neut % (Auto) 65.0 % Lymph % (Auto) 10.4 % [place] % (Auto) 24.0 % Eos % (Auto) 0.3 % Baso % (Auto) 0.1 % Neut # (Auto) 10.03 H (1.4-6.5) K/uL Lymph # (Auto) 1.61 (1.2-3.4) K/uL [place] # (Auto) 3.70 H (0.11-0.59) K/uL Eos # (Auto) 0.05 (0-0.5) K/uL Baso # (Auto) 0.01 (0-0.2) K/uL Immature Gran # (Auto) 0.03 H (0.00-0.02) K/uL PT (9.0-12.0) Seconds INR (0.9-1.1) Sodium 132 L (136-145) mmol/L Potassium 4.6 (3.5-5.1) mmol/L Chloride 98 (98-107) mmol/L Carbon Dioxide 30 (21-32) mmol/L Anion Gap 4 (3-11) BUN 27 H (6-23) mg/dl Creatinine 1.32 (0.6-1.4) mg/dl Est Cr Clr Drug Dosing 47.0 ml/min Est GFR ( Amer) 57.0 ml/min Est GFR (Non-Af Amer) 49.2 ml/min BUN/Creatinine Ratio 20.5 H (10-20) Glucose 97 (70-99(Fasting)) mg/dl Calcium 8.9 (8.5-10.1) mg/dl Magnesium 1.8 (1.7-2.4) mg/dl Total Bilirubin 0.6 (0.2-1.0) mg/dl AST 14 (13-39) U/L ALT 18 (7-52) U/L Alkaline Phosphatase 71 (34-104) U/L Troponin I 0.03 (0-0.04) ng/ml Total Protein 7.2 (6.0-8.3) gm/dl Albumin 3.5 (3.4-5.0) gm/dl Globulin 3.7 (2.5-4.0) gm/dl Albumin/Globulin Ratio 0.9 (0.9-2) TSH 1.777 (0.300-4.500) uIu/ml Urine Color Urine Appearance (Clear) Urine pH (4.5-7.5) Ur Specific [place] (1.000-1.030) Urine Protein (Negative) Urine Glucose (UA) (Negative) Urine Ketones (Negative) Urine Blood (Negative) Urine Nitrite (Negative) Urine Bilirubin (Negative) Urine Urobilinogen (Negative) Ur Leukocyte Esterase (Negative) Urine WBC (Auto) (0-5) /hpf Urine RBC (Auto) (0-4) /hpf U Hyaline Cast (Auto) (0-5) /lpf U Epithel Cells (Auto) (0-5) /lpf Urine Bacteria (Auto) (Negative) SARS-CoV-2, RNA, NAAT (NEGATIVE) 07/12/21 07/12/21 07/12/21 Range/Units 12:42 15:24 16:38 WBC (4.8-10.8) K/uL RBC (4.7-6.1) M/uL Hgb (14.0-18.0) g/dL Hct (42-52) % MCV (80-100) fL MCH (25-34) pg MCHC (32-36) g/dL RDW Std Deviation (36.4-46.3) fL RDW Coeff of Cresencio (11.5-14.5) % Plt Count (130-400) K/uL MPV (7.4-10.4) fL Immature Gran % (Auto) % Neut % (Auto) % Lymph % (Auto) % [place] % (Auto) % Eos % (Auto) % Baso % (Auto) % Neut # (Auto) (1.4-6.5) K/uL Lymph # (Auto) (1.2-3.4) K/uL [place] # (Auto) (0.11-0.59) K/uL Eos # (Auto) (0-0.5) K/uL Baso # (Auto) (0-0.2) K/uL Immature Gran # (Auto) (0.00-0.02) K/uL PT 25.3 H (9.0-12.0) Seconds INR 2.7 H (0.9-1.1) Sodium (136-145) mmol/L Potassium (3.5-5.1) mmol/L Chloride (98-107) mmol/L Carbon Dioxide (21-32) mmol/L Anion Gap (3-11) BUN (6-23) mg/dl Creatinine (0.6-1.4) mg/dl Est Cr Clr Drug Dosing ml/min Est GFR ( Amer) ml/min Est GFR (Non-Af Amer) ml/min BUN/Creatinine Ratio (10-20) Glucose (70-99(Fasting)) mg/dl Calcium (8.5-10.1) mg/dl Magnesium (1.7-2.4) mg/dl Total Bilirubin (0.2-1.0) mg/dl AST (13-39) U/L ALT (7-52) U/L Alkaline Phosphatase (34-104) U/L Troponin I (0-0.04) ng/ml Total Protein (6.0-8.3) gm/dl Albumin (3.4-5.0) gm/dl Globulin (2.5-4.0) gm/dl Albumin/Globulin Ratio (0.9-2) TSH (0.300-4.500) uIu/ml Urine Color Yellow Urine Appearance Clear (Clear) Urine pH 5.5 (4.5-7.5) Ur Specific [place] 1.019 (1.000-1.030) Urine Protein 1+ H (Negative) Urine Glucose (UA) Negative (Negative) Urine Ketones Negative (Negative) Urine Blood Negative (Negative) Urine Nitrite Negative (Negative) Urine Bilirubin Negative (Negative) Urine Urobilinogen Negative (Negative) Ur Leukocyte Esterase Negative (Negative) Urine WBC (Auto) 1-5 (0-5) /hpf Urine RBC (Auto) 0-4 (0-4) /hpf U Hyaline Cast (Auto) 1-5 (0-5) /lpf U Epithel Cells (Auto) 5-10 H (0-5) /lpf Urine Bacteria (Auto) Negative (Negative) SARS-CoV-2, RNA, NAAT NEGATIVE (NEGATIVE) Administered Medications Sodium Chloride (Nss 1000ml) 1,000 mls @ 125 mls/hr IV .Q8H CLIFF Stop: 07/12/21 20:59 Last Admin: 07/12/21 14:19 Dose: 125 mls/hr Documented by: [id number] Imaging Data Radiologist's Impression: Chest X-Ray 07/12/21 12:59 XR chest 1V portable HISTORY: weakness COMPARISON: Chest 06/10/2017. FINDINGS: No pneumothorax. The cardiac silhouette remains mildly enlarged. There are poststernotomy changes and a cardiac valve prosthesis again noted. Calcifications within the aortic knob. Bilateral perihilar interstitial/vascular thickening persists and favors developing congestive change. No new focal lung consolidations identified. No significant pleural fusions. IMPRESSION: 1. Cardiomegaly with developing congestive change. 2. No new focal lung consolidations. ACT 112: Negative or not required by law. Electronically signed by: Andrea Sahu M.D. 07/12/2021 1:[address] 07/12/21 13:[address] DOSE: 537.48 mGy.cm HISTORY: Generalized weakness TECHNIQUE: Multiaxial CT images of the head were performed without the use of intravenous contrast. Automated exposure control was utilized for this study. A dose lowering technique was utilized adhering to the principles of ALARA. Comparison: Head CT 06/10/2017. Findings: The paranasal sinuses and mastoid air cells are clear. The calvarium and skull base are intact. There is no mass, hematoma, midline shift, acute infarct. Atrophy and microvascular ischemic changes are again noted. Stable mild ventriculomegaly. Impression: No significant change compared to the prior study. No acute intracranial abnormality. ACT 112: Negative or not required by law. Electronically signed by: Andrea Sahu M.D. 07/12/2021 2:50 PM Discharge Plan Visit Data Chief Complaint: Weakness Stated Complaint: WEAKNESS ED Provider: Brett Suárez Discharge Problem: Generalized weakness, Leukocytosis, Dehydration, Acute confusion Forms Stand Alone Forms: My [facility] Prescriptions Prescriptions: No Action furosemide 40 mg tablet 20 mg PO QAM RF: 0 atorvastatin 20 mg tablet 20 mg PO HS RF: 0 potassium chloride [Klor-Con] 20 mEq Packet 20 meq PO QAM RF: 0 Ocuvite Adult 50 Plus 250-5-1 mg Capsule 2 cap PO QAM RF: 0 sotalol 80 mg Tablet 40 mg PO QAM RF: 0 warfarin 2 mg tablet 4 - 6 mg PO UD RF: 0 tramadol 50 mg tablet 50 mg PO Q6 PRN (Reason: Pain) RF: 0 Referrals Referrals: Deric Tello MD [Primary Care Provider] -
--- NOTE | 2021-07-12 17:13 | Electrocardiogram Report ---
Test Reason : Blood Pressure : / mmHG Vent. Rate : 063 BPM Atrial Rate : 063 BPM P-R Int : 310 ms QRS Dur : 100 ms QT Int : 408 ms P-R-T Axes : 000 -23 -67 degrees QTc Int : 417 ms Poor data quality, interpretation may be adversely affected Sinus rhythm with marked sinus arrhythmia with 1st degree A-V block Abnormal ECG When compared with ECG of 11-JUN-2017 06:38, Nonspecific T wave abnormality has replaced inverted T waves in Inferior leads Confirmed by Jos Sherwood ([id number]) on 07/12/2021 5:13:15 PM Referred By: Confirmed By:Andreas Sherwood
[2021-07-12 18:11] LABS: INR 2.7 (0.9-1.1); Prothrombin Time 25.3 Seconds (9.0-12.0)
[2021-07-12] MEDS ORDERED: MAGNESIUM SULFATE / D5W 1 GM/100 ML BAG IV STA (19:24)
--- NOTE | 2021-07-12 19:54 | History & Physical Report ---
Date of Service July 12, 2021 Assessment & Plan (1) Generalized weakness: Plan: Multifactorial to include decrease fluid intake, medication induced with tramadol, chronic pain and possible infective source - Will hold his Tramadol - IVF overnight for one liter and hold AM lasix - Follow biomarkers for possible infection trend (2) Leukocytosis: Plan: Elevated WBC to 15 with PCT 0.11 and elevated NLR 10:1- Will hold on empiric antibiotics at this time; with low threshold to initiate broad spectrum coverage if febrile or worsening of leukocytosis/symptoms - currently without identifiable source - UA negative, CXR negative, CT head negative - Obtain blood culture, urine culture -check ESR, CRP, PCT - X ray of right shoulder- although without localized signs - No oral pain or dental visits, no localized areas on skin noted - Afebrile - Had similar presentation in 2019 with neck pain and stiffness without source of infection ever identified and thought to be pseudogout (3) Rotator cuff tear: Plan: Bilateral s/p right shoulder injection 5 days ago - as above - Orthopaedics consult for evaluation of ? infection vs. gout/pseudo gout - Tylenol for pain (4) Hyponatremia: Plan: Mild at 132- this is around his baseline - endorses decreased water intake follow with diuretics - LR 1 liter overnight -hold lasix (5) CKD (chronic kidney disease), stage III: Plan: BUN and SENIOR CLINICAL DATA COORDINATOR are within his baseline follow (6) Moderate obstructive sleep apnea: Plan: Stopped wearing his CPAP and sent back to company secondary to not feeling effectiveness - Continues to follow with Dr. Narayanan for his ALEXANDRO - no acute needs (7) Multiple pulmonary nodules: Plan: Appears chronic without increase in size- noted ~2011 (8) Coronary artery disease: Plan: Continue Atorvastatin and BB, and Warfarin (9) History of aortic valve replacement: Plan: As above follow fluid volume status (10) History of mitral valve replacement: Plan: As above follow fluid volume status History of Present Illness Primary Care Provider: Deric Tello MD 85 YOM with past medical history of: ALEXANDRO (no longer wears CPAP), Aortic and Mechanical mechanical valve replacement (on Coumadin), Bilateral rotator cuff tears, chronic shoulder pain, Intraocular lens transplant (right), afib(on sotalol), CAD, HLD, HTN, pulmonary nodules, BPH. 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 rigors. The patient is accompanied by his to the EMD. The patient chronically deals with bilateral shoulder pain and has been on and off Tramadol over the years, but when he does take it, there is note that he get slower and some confusion, but today was worse. He recently had right shoulder injection on 07/07/20 and remains with pain in the shoulder and resumed his Tramadol. In the EMD the patient had routine labs performed CT scan of his head, CXR, and UA performed. He was noted to have increased WBC of 15, elevated NLR and elevated PCT of 0.11 but without evidence of infection noted at this time. He denies any cough, cold, sinusitis, pain to any other joints. No new medications have been changed or added. Patient will be admitted to continue to evaluate infectious possibilities, will obtain X-ray of shoulder although it is without local evidence of infection. Will hold his Tramadol at this time for his confusion and weakness. Follow his bio-markers. Obtain blood and urine culture, further evaluate right shoulder and search for possible source of infection COVID test on admission is: NEGATIVE Allergies Allergy/AdvReac Type Severity Reaction Status Date / Time Penicillins Allergy Mild RASH Verified 07/12/21 15:54 celecoxib [From Celebrex] Allergy Unknown Verified 07/12/21 15:54 cyclobenzaprine Allergy Unknown Verified 07/12/21 15:54 [From Flexeril] simvastatin AdvReac Mild MUSCLE PAIN Verified 07/12/21 15:54 Home Medications Medication Instructions Recorded Confirmed Type atorvastatin 20 mg tablet 20 mg PO HS 03/04/19 07/12/21 History furosemide 40 mg tablet 20 mg PO QAM 03/04/19 07/12/21 History potassium chloride 20 mEq oral 20 meq PO QAM 11/12/19 07/12/21 History packet (Klor-Con) sotalol 80 mg tablet 40 mg PO QAM 11/12/19 07/12/21 History vit C,E,zinc,copper-[id number] 250 2 cap PO QAM 11/12/19 07/12/21 History mg-lutein 5 mg-zeaxanthin 1 mg capsule (Ocuvite Adult 50 Plus) tramadol 50 mg tablet 50 mg PO Q6 PRN 07/12/21 07/12/21 History warfarin 2 mg tablet 4 - 6 mg PO UD 07/12/21 07/12/21 History Past Med/Surg History Medical History (Updated 07/12/21 @ 20:17 by JUAN Jackson) History of atrial fibrillation History of cardioversion Hx of cardiac murmur Hypertension Macular degeneration GETS SHOTS IN EYES FOR TREATMENT Q8-10 WEEKS Restless leg syndrome Ventral hernia Surgical History (Updated 07/12/21 @ 20:07 by JUAN Jackson) History of aortic valve replacement AT AGE 58 (DENICE T[facility]LOR) History of colonoscopy History of inguinal hernia repair LEFT X 2 History of left cataract surgery 11/19/2019. propofol given. 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 Feels Safe at Home: Yes Assistive Devices: Glasses Review of Systems Review of Systems: REVIEW OF SYSTEMS: Constitutional: No fever, sweats or chills Eyes: No diplopia, no worsening or blurred vision ENT: normal hearing, no trouble swallowing Respiratory: No cough, sputum, dyspnea at rest or on exertion Cardiovascular: No chest pain, tightness or palpitations Abdomen: No pain, nausea, vomiting, diarrhea or constipation Musculoskeletal: (+) right shoulder joint pain, calf pain, swelling Neurologic: No weakness, numbness/tingling, or balance problems Psychiatric: No anxiety or depression Skin: No rash or itch Physical Exam Physical Exam: PHYSICAL EXAM: General: awake, alert, no apparent distress Head: Normocephalic, atraumatic ENT: PERRL, EOMI, no pharyngeal exudate, mucous membranes moist Neuro: AAO x 3, speech clear and appropriate, strength intact bilaterally 5/5, sensation intact and equal all extremities and dermatomes, no pronator drift Chest: equal rise and fall of the chest, no accessory muscle use, no heaves or thrills, Clear to auscultation, on room air, Cardiac: Regular rate and rhythm, telemetry reviewed, skin warm dry, cap refill <3 seconds, peripheral pulses +2 no JVD, no murmur, no JVD, no edema GI: NABS x 4 quadrants, soft, nontender to palpation, no rebound, guarding or tenderness : Spontaneously voiding, no pain, no CVA tenderness, Extremities: Normal inspection, no peripheral edema or erythema, calfs nontender to palpation Psych: Normal mood and affect Skin: no rash or erythema Results & Data Results & Data ([facility]) Vital Signs (Past 12 Hours) Vital Signs Temp Pulse Pulse Resp BP BP Pulse Ox 07/12/21 15:58 62 18 125/66 96 07/12/21 15:13 62 18 95 07/12/21 12:43 96 07/12/21 12:39 36.6 C 68 18 124/61 96 Laboratory Results Abnormal lab results 07/12/21 07/12/21 07/12/21 Range/Units 12:42 12:42 12:42 WBC 15.43 H (4.8-10.8) K/uL RBC 4.36 L (4.7-6.1) M/uL Hgb 13.9 L (14.0-18.0) g/dL Hct 40.7 L (42-52) % RDW Std Deviation 46.4 H (36.4-46.3) fL Neut # (Auto) 10.03 H (1.4-6.5) K/uL Hood # (Auto) 3.70 H (0.11-0.59) K/uL Immature Gran # (Auto) 0.03 H (0.00-0.02) K/uL ESR (0-20) mm/hr PT 25.3 H (9.0-12.0) Seconds INR 2.7 H (0.9-1.1) Sodium 132 L (136-145) mmol/L BUN 27 H (6-23) mg/dl BUN/Creatinine Ratio 20.5 H (10-20) Urine Protein (Negative) U Epithel Cells (Auto) (0-5) /lpf 07/12/21 07/12/21 Range/Units 12:42 16:38 WBC (4.8-10.8) K/uL RBC (4.7-6.1) M/uL Hgb (14.0-18.0) g/dL Hct (42-52) % RDW Std Deviation (36.4-46.3) fL Neut # (Auto) (1.4-6.5) K/uL Hood # (Auto) (0.11-0.59) K/uL Immature Gran # (Auto) (0.00-0.02) K/uL ESR 45 H (0-20) mm/hr PT (9.0-12.0) Seconds INR (0.9-1.1) Sodium (136-145) mmol/L BUN (6-23) mg/dl BUN/Creatinine Ratio (10-20) Urine Protein 1+ H (Negative) U Epithel Cells (Auto) 5-10 H (0-5) /lpf Diagnostic Findings Chest X-Ray 07/12/21 12:59 XR chest 1V portable HISTORY: weakness COMPARISON: Chest 06/10/2017. FINDINGS: No pneumothorax. The cardiac silhouette remains mildly enlarged. There are poststernotomy changes and a cardiac valve prosthesis again noted. Calcifications within the aortic knob. Bilateral perihilar interstitial/vascular thickening persists and favors developing congestive change. No new focal lung consolidations identified. No significant pleural fusions. IMPRESSION: 1. Cardiomegaly with developing congestive change. 2. No new focal lung consolidations. ACT 112: Negative or not required by law. Electronically signed by: Andrea Sahu M.D. 07/12/2021 1:[address] 07/12/21 13:[address] DOSE: 537.48 mGy.cm HISTORY: Generalized weakness TECHNIQUE: Multiaxial CT images of the head were performed without the use of intravenous contrast. Automated exposure control was utilized for this study. A dose lowering technique was utilized adhering to the principles of ALARA. Comparison: Head CT 06/10/2017. Findings: The paranasal sinuses and mastoid air cells are clear. The calvarium and skull base are intact. There is no mass, hematoma, midline shift, acute infarct. Atrophy and microvascular ischemic changes are again noted. Stable mild ventriculomegaly. Impression: No significant change compared to the prior study. No acute intracranial abnormality. ACT 112: Negative or not required by law. Electronically signed by: Andrea Sauh M.D. 07/12/2021 2:50 PM Medications Administered Discontinued Medications Sodium Chloride (Nss 1000ml) 1,000 mls @ 125 mls/hr IV .Q8H CLIFF Stop: 07/12/21 20:59 Last Admin: 07/12/21 14:19 Dose: 125 mls/hr Documented by: [id number] Home Medications atorvastatin 20 mg tablet 20 mg PO HS 03/04/19 [History Confirmed 07/12/21] furosemide 40 mg tablet 20 mg PO QAM 03/04/19 [History Confirmed 07/12/21] potassium chloride 20 mEq oral packet (Klor-Con) 20 meq PO QAM 11/12/19 [History Confirmed 07/12/21] sotalol 80 mg tablet 40 mg PO QAM 11/12/19 [History Confirmed 07/12/21] vit C,E,zinc,copper-[id number] 250 mg-lutein 5 mg-zeaxanthin 1 mg capsule (Ocuvite Adult 50 Plus) 2 cap PO QAM 11/12/19 [History Confirmed 07/12/21] tramadol 50 mg tablet 50 mg PO Q6 PRN 07/12/21 [History Confirmed 07/12/21] warfarin 2 mg tablet 4 - 6 mg PO UD 07/12/21 [History Confirmed 07/12/21] Active Medications Lactated Ringer's (Lr) 1,000 mls @ 100 mls/hr IV .Q10H CLIFF Stop: 08/11/21 19:14 Magnesium Sulfate/Dextrose (Magnesium Sulfate / D5w) 1 gm in 100 mls @ 50 mls/hr IV Q2H STA Stop: 07/12/21 21:23 ECG Additional Comments: Sinus rhythm with marked sinus arrhythmia with 1st degree A-V block Abnormal ECG When compared with ECG of 11-JUN-2017 06:38, Nonspecific T wave abnormality has replaced inverted T waves in Inferior leads Confirmed by Jos Sherwood ([id number]) on 07/12/2021 5:13:15 PM Code Status & VTE Plan Code Status CODE: DNR/DNI VTE: SCDS, Coumadin, ambulation VTE Prophylaxis Plan VTE Prophylaxis will be ordered: Yes Supervising Physician Co-Signing Physician Notes NUCLEAR 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 History and ROS reviewed as above Vitals reviewed Gen: AAOx3, NAD HEENT: Anicteric sclerae, EOMI CV: RRR 2/6 DOT nl S1S2 Pulm: CTAB no wcr Abd: +BS soft NT ND no masses or hernias Ext: No edema, right shoulder without erythema or edema, positive pain with active and passive range of motion which is very limited by pain in all directions Skin: No rashes, warm/dry Neuro: Full strength throughout, except right shoulder as above Labs and rads reviewed 85-year-old male here with mild acute encephalopathy which is now resolved, likely secondary to tramadol use, but also with leukocytosis and right shoulder pain, generalized weakness. Plan outlined as above Add lidocaine patch and PT/OT consults Appreciate orthopedic consultation with regards to right shoulder pain PG Care Time/CCT Total # of Minutes Spent Total Time Spent with Patient: Total time spent is greater than 50% in coordination of care (as documented) at patient's floor/unit and/or counseling patient: Coding Level of Care Code 40797 Initial Inpt Care Lvl 3 Diagnoses Generalized weakness R53.1 Leukocytosis D72.829 Rotator cuff tear M75.100 Moderate obstructive sleep apnea G47.33 Multiple pulmonary nodules R91.8 Coronary artery disease I25.10 History of aortic valve replacement Z95.2 History of mitral valve replacement Z95.2 Hyponatremia E87.1 CKD (chronic kidney disease), stage III N18.30
[2021-07-12] MEDS: LACTATED RINGER'S 1,000 ML IV SCH (20:19)
--- NOTE | 2021-07-12 20:20 | XRay Report ---
RIGHT SHOULDER 3 VIEWS CLINICAL HISTORY: Right shoulder pain. FINDINGS: 3 views of the right shoulder are compared to study dated 11/05/2018. The skeletal structure s are osteopenic. There is no radiographic evidence of fracture or dislocation. A chronic Hill-Sachs lesion is noted in the humeral head with associated bony sclerosis. Mild superior subluxation of the humeral head suggests chronic rotator cuff injury. Mild productive degenerative change is noted at th e acromioclavicular joint. Soft tissue edema is seen overlying the shoulder. Midline sternotomy wires are partially imaged. The heart is enlarged. Question pulmonary vascular congestion. IMPRESSION: 1. Soft tissue swelling with no acute bony abnormality identified. 2. Osteopenia with chronic/degenerative changes as above. 3. Cardiomegaly and suspect pulmonary vascular congestion. Electronically signed by: Jasson Vance M.D. 07/12/2021 8:19 PM
[2021-07-12] MEDS ORDERED: POLYETHYLENE (MIRALAX) 17 GM PACK PO PRN (20:39)
[2021-07-12] MEDS ORDERED: ACETAMINOPHEN 325 MG TAB PO PRN (20:39)
[2021-07-12] MEDS ORDERED: WARFARIN SOD 2 MG TAB PO SCH (20:39)
[2021-07-12] MEDS ORDERED: MAGNESIUM SULFATE / D5W 1 GM/100 ML BAG IV SCH (22:20)
[2021-07-13] MEDS: ATORVASTATIN 20 MG TAB PO SCH ×2 (00:09→21:48)
[2021-07-13] MEDS: LIDOCAINE 5% 1 PATCH TD SCH ×2 (00:10→08:24)
[2021-07-13] MEDS: LACTATED RINGER'S 1,000 ML IV SCH ×2 (00:10→11:11)
[2021-07-13] MEDS: WARFARIN SOD 6 MG TAB PO SCH ×2 (00:11→16:53)
[2021-07-13 08:13] LABS: Hemoglobin 12.2 g/dL (14.0-18.0); Mean Corpuscular Hemoglobin 31.1 pg (25-34); Mean Corpuscular Hgb Conc 33.9 g/dL (32-36); Mean Corpuscular Volume 91.8 fL (80-100); Mean Platelet Volume 10.5 fL (7.4-10.4); Platelet Count 253 K/uL (130-400); RDW Coefficient of Variation 13.8 % (11.5-14.5); RDW Standard Deviation 45.9 fL (36.4-46.3); Red Blood Count 3.92 M/uL (4.7-6.1); White Blood Count 17.73 K/uL (4.8-10.8)
[2021-07-13] MEDS: SOTALOL HCL 80 MG TAB PO SCH (08:23)
[2021-07-13 08:26] LABS: INR 2.7 (0.9-1.1); Prothrombin Time 25.1 Seconds (9.0-12.0)
[2021-07-13 08:39] LABS: BUN Creatinine Ratio 20.3 (10-20); Calcium 8.1 mg/dl (8.5-10.1); Est GFR (African American) 65.3 ml/min; Est GFR (Non-African American) 56.3 ml/min; Potassium 4.2 mmol/L (3.5-5.1)
[2021-07-13 08:41] LABS: Eosinophils # (auto) 0.01 K/uL (0-0.5); Eosinophils % (auto) 0.1 %; Immature Granulocytes # (auto) 0.03 K/uL (0.00-0.02); Immature Granulocytes % (auto) 0.2 %; Lymphocytes # (auto) 1.41 K/uL (1.2-3.4); Monocytes # (auto) 3.51 K/uL (0.11-0.59); Monocytes % (auto) 19.8 %; Neutrophils # (auto) 12.77 K/uL (1.4-6.5); Neutrophils % (auto) 71.9 %
[2021-07-13] MEDS ORDERED: FUROSEMIDE 20 MG TAB PO SCH (09:00)
--- NOTE | 2021-07-13 13:23 | Hospitalist Progress Note ---
Date of Service July 13, 2021 Assessment & Plan (1) Acute on chronic congestive heart failure: Plan: I spoke with the pt's by phone. She confirms a dx of CHF. EF is uncertain. Last echo at [facility] was 2017 with preserved EF. He follows with Dr Toni Painter, [facility] [address] [facility] chest was obtained today showing findings c/w CHF. Will hold PO lasix - give IV lasix 20mg IV x 1. Will contact [facility] in am to see when last echo was done, etc. Repeat bmp am. (2) Effusion, right knee: Plan: Pseudogout vs septic arthritis vs other. Appreciate ortho consult and assistance. WBCs in synovial fluid >70,000. This could be inflammatory from CPPD. Septic joint still possible given his leukocytosis, elevated inflammatory markers, etc. To be on safe side - while awaiting synovial fluid cx - place on rocephin/vanco IV. f/u on crystal analysis. If this turns out to be CPPD - prednisone course or NSAIDs will be offered. (3) Generalized weakness: Plan: reports 3-4 days of such. I cannot exclude an infectious process. Given his dyspnea I repeated a COVID/RSV/flu test -- all negative. CT chest findings noted. Await blood cultures. Await synovial fluid cultures. concerned tramadol was large culprit for him?? (4) Leukocytosis: Plan: See discussion above. Inflammatory arthropathy can cause leukocytosis. Still cannot rule out infectious etiology, however. Empiric abx while ruling out septicemia. Repeat cbc am. (5) Rotator cuff tear: Plan: Bilateral. s/p right shoulder injection [address] Rodriguez in the office. Pain control. (6) Hyponatremia: Plan: 2nd volume overload, chronic lasix use, etc. Stop IVF. Lasix IV x 1 now. Repeat BMP am. (7) CKD (chronic kidney disease), stage III: Plan: BMP am. (8) Moderate obstructive sleep apnea: Plan: No longer using CPAP for such. Follows with Dr Brett Narayanan. (9) Multiple pulmonary nodules: Plan: along with calcified lymph nodes. outpatient pulmonary notes suggest he had prior fungal infection in the past. does not have sarcoid. (10) Coronary artery disease: Plan: Continue Atorvastatin and BB, and Warfarin (11) History of aortic valve replacement: Plan: noted (12) History of mitral valve replacement: Plan: noted (13) History of atrial fibrillation: Plan: noted cont sotalol to maintain NSR cont coumadin daily INR while hospitalized Plan: extensively updated by phone this evening care d/w Dr Rodriguez - ortho Admission and Anticipated Discharge Date Admission Date: July 12, 2021 Subjective patient sitting in chair during the visit his meal had arrived but he stated he wasn't very hungry reports altered taste for 1-2 weeks? smell intact has felt unwell for maybe 2 weeks - fatigue, weakness, poor appetite states his right knee started bothering him last night states his right shoulder has been bothering him for a long time and that he had an injection in the shoulder recently denies travel denies sick contacts states he is vaccinated against COVID at times he was mildly confused during the visit Review of Systems Review of Systems: gen - no fevers or chills but loss of appetite cv - no chest pain pulm - short of breath x 2 weeks? no real cough however GI - no abd pain, nausea, emesis Physical Exam Physical Exam: gen - looks/sounds mildly dyspneic, subtle tachypnea, mildly confused neck - no obvious JVD sitting at 90 degrees mouth - MMM heart - RRR, s1 s2 lungs - decreased BS bases, CTA apices b/l abd - soft NT ND BS+ ext - no edema, pulses 2+ b/l musculo - right knee with moderate to large joint effusion, warm to touch; passive flexion/extension causes pain; deep palpation causes pain; right shoulder without effusion, tender to palpation over R shoulder; joints of fingers of both hands without synovitis psych - mildly confused Results & Data Results & Data ([facility]) Vital Signs (Past 12 Hours) Vital Signs Temp Pulse Resp BP Pulse Ox 07/13/21 07:46 36.2 C L 65 16 123/65 94 Laboratory Results Laboratory Results - last 24 hr 07/13/21 07/13/21 07/13/21 07:31 07:31 07:31 WBC 17.73 H RBC 3.92 L Hgb 12.2 L Hct 36.0 L MCV 91.8 MCH 31.1 MCHC 33.9 RDW Std Deviation 45.9 RDW Coeff of Cresencio 13.8 Plt Count 253 MPV 10.5 H Immature Gran % (Auto) 0.2 Neut % (Auto) 71.9 Lymph % (Auto) 8.0 [place] % (Auto) 19.8 Eos % (Auto) 0.1 Baso % (Auto) 0.0 Neut # (Auto) 12.77 H Lymph # (Auto) 1.41 [place] # (Auto) 3.51 H Eos # (Auto) 0.01 Baso # (Auto) 0.00 Immature Gran # (Auto) 0.03 H PT 25.1 H INR 2.7 H Sodium 131 L Potassium 4.2 Chloride 101 Carbon Dioxide 24 Anion Gap 6 BUN 24 H Creatinine 1.18 Est Cr Clr Drug Dosing 53.0 Est GFR ( Amer) 65.3 Est GFR (Non-Af Amer) 56.3 BUN/Creatinine Ratio 20.3 H Glucose 110 H POC Glucose Calcium 8.1 L Magnesium 2.0 Fluid Comment Synovial Source Synovial Color Synovial Appearance Synovial WBC Synovial RBC Synovial Polynuclear % Synovial Mononuclear % Synovial Crystals SARS-CoV-2 (PCR) Influenza Type A (PCR) Influenza Type B (PCR) RSV (RT-PCR) 07/13/21 07/13/21 07/13/21 08:03 12:01 14:30 WBC RBC Hgb Hct MCV MCH MCHC RDW Std Deviation RDW Coeff of Cresencio Plt Count MPV Immature Gran % (Auto) Neut % (Auto) Lymph % (Auto) [place] % (Auto) Eos % (Auto) Baso % (Auto) Neut # (Auto) Lymph # (Auto) [place] # (Auto) Eos # (Auto) Baso # (Auto) Immature Gran # (Auto) PT INR Sodium Potassium Chloride Carbon Dioxide Anion Gap BUN Creatinine Est Cr Clr Drug Dosing Est GFR ( Amer) Est GFR (Non-Af Amer) BUN/Creatinine Ratio Glucose POC Glucose 116 H 104 H Calcium Magnesium Fluid Comment Synovial Source Synovial Color Synovial Appearance Synovial WBC Synovial RBC Synovial Polynuclear % Synovial Mononuclear % Synovial Crystals SARS-CoV-2 (PCR) NEGATIVE Influenza Type A (PCR) Negative Influenza Type B (PCR) Negative RSV (RT-PCR) Negative 07/13/21 07/13/21 07/13/21 17:23 20:21 Unknown WBC RBC Hgb Hct MCV MCH MCHC RDW Std Deviation RDW Coeff of Cresencio Plt Count MPV Immature Gran % (Auto) Neut % (Auto) Lymph % (Auto) [place] % (Auto) Eos % (Auto) Baso % (Auto) Neut # (Auto) Lymph # (Auto) [place] # (Auto) Eos # (Auto) Baso # (Auto) Immature Gran # (Auto) PT INR Sodium Potassium Chloride Carbon Dioxide Anion Gap BUN Creatinine Est Cr Clr Drug Dosing Est GFR ( Amer) Est GFR (Non-Af Amer) BUN/Creatinine Ratio Glucose POC Glucose 106 H 113 H Calcium Magnesium Fluid Comment Synovial Source KNEE Synovial Color STRAW Synovial Appearance CLOUDY Synovial WBC 28090 H Synovial RBC < 3000 Synovial Polynuclear % 89.2 Synovial Mononuclear % 10.8 Synovial Crystals SARS-CoV-2 (PCR) Influenza Type A (PCR) Influenza Type B (PCR) RSV (RT-PCR) 07/13/21 Unknown WBC RBC Hgb Hct MCV MCH MCHC RDW Std Deviation RDW Coeff of Cresencio Plt Count MPV Immature Gran % (Auto) Neut % (Auto) Lymph % (Auto) [place] % (Auto) Eos % (Auto) Baso % (Auto) Neut # (Auto) Lymph # (Auto) [place] # (Auto) Eos # (Auto) Baso # (Auto) Immature Gran # (Auto) PT INR Sodium Potassium Chloride Carbon Dioxide Anion Gap BUN Creatinine Est Cr Clr Drug Dosing Est GFR ( Amer) Est GFR (Non-Af Amer) BUN/Creatinine Ratio Glucose POC Glucose Calcium Magnesium Fluid Comment Synovial Source Synovial Color Synovial Appearance Synovial WBC Synovial RBC Synovial Polynuclear % Synovial Mononuclear % Synovial Crystals Pending SARS-CoV-2 (PCR) Influenza Type A (PCR) Influenza Type B (PCR) RSV (RT-PCR) Diagnostic Findings Chest CT 07/13/21 13:19 CT chest diagnostic wo con CT DOSE: 971.59 mGy.cm HISTORY: dyspnea, CHF? pneumonia? other? TECHNIQUE: Multiaxial CT images of the chest were performed without contrast. A dose lowering technique was utilized adhering to the principles of ALARA. COMPARISON: Chest CT 07/31/2011. FINDINGS: There are poststernotomy changes. Old postoperative changes also noted within the left lateral chest wall. No acute fractures within the visualized osseous structures. Limited views of the upper abdomen demonstrate normal liver, spleen, and adrenal glands. Normal esophagus. The thyroid gland appears unremarkable. Normal caliber esophagus. The heart is mildly enlarged. Calcified plaque within the normal caliber thoracic aorta. Aortic valve prosthesis is again noted. There are small bilateral pleural effusions most pronounced on the right. Calcified enlarged mediastinal and hilar lymph nodes are not significantly changed. This is consistent with prior granulomatous disease. No pneumothorax. Mild narrowing of the central bronchi due to the bilateral hilar lymphadenopathy. This is also similar to the prior study. There is partial opacification within the lateral segmental bronchus of the right middle lobe with associated consolidation within the lateral segment of the right middle lobe. This favors atelectasis. A pneumonia could also a similar appearance. There are few bibasilar linear densities suggesting subsegmental atelectasis. Mild emphysema. Mild interlobular septal thickening consistent with mild pulmonary edema. Scattered partially calcified pulmonary nodules remain stable and are therefore considered to be benign. IMPRESSION: 1. Cardiomegaly, small bilateral pleural effusions, and mild interlobular septal thickening consistent with mild pulmonary edema. 2. Partial opacification of the lateral segmental bronchus of the right middle lobe with consolidation/collapse involving the lateral segment of the right middle lobe. This is likely due to compression of the right middle lobe bronchus from the chronic granulomatous disease within the right hilum. A focal pneumonia could also have a similar appearance in the appropriate clinical setting. 4. Calcified lymphadenopathy within the mediastinum and hilum with a few partially calcified pulmonary nodules remain unchanged. This consistent with prior granulomatous disease/sarcoidosis. ACT 112: Negative or not required by law. Electronically signed by: Andrea Sahu M.D. 07/13/2021 3:56 PM Knee X-Ray 07/13/21 13:19 XR knee RT 1 or 2V routine HISTORY: 85 years-old Male ?CPPD R knee chronic right knee pain COMPARISON: Right femur radiographs 06/10/2017 TECHNIQUE: 2 views of the right knee FINDINGS: Chondrocalcinosis of the medial and lateral compartments. Mild patellofemoral osteoarthritis with minimal medial and lateral compartment osteoarthritis. Moderate size joint effusion with ill-defined suprapatellar calcifications. No osseous erosions. Arterial calcifications also noted. IMPRESSION: 1. Moderate sized joint effusion without acute fracture or dislocation. 2. Osteoarthritis of the knee, mild within the patellofemoral joint 3. Chondrocalcinosis. ACT 112: Negative or not required by law. The above report was generated using voice recognition software. It may contain grammatical, syntax or spelling errors. Electronically signed by: Ethan Pinzon M.D. 07/13/2021 3:35 PM PG Care Time/CCT Total # of Minutes Spent Total Time Spent with Patient: Total time spent is greater than 50% in coordination of care (as documented) at patient's floor/unit and/or counseling patient: Coding Level of Care Code 63464 Subseq Hosp Care Lvl 3 Diagnoses Generalized weakness R53.1 Leukocytosis D72.829 Rotator cuff tear M75.100 Hyponatremia E87.1 CKD (chronic kidney disease), stage III N18.30 Moderate obstructive sleep apnea G47.33 Multiple pulmonary nodules R91.8 Coronary artery disease I25.10 History of aortic valve replacement Z95.2 History of mitral valve replacement Z95.2 Acute on chronic congestive heart failure I50.9 Effusion, right knee M25.461 History of atrial fibrillation Z86.79
[2021-07-13 15:24] LABS: Influenza A virus by PCR Negative (Neg); Influenza B virus by PCR Negative (Neg); RSV by PCR Negative (Neg); SARS CoV2 RNA(COVID-19) InHosp NEGATIVE (Negative)
--- NOTE | 2021-07-13 15:36 | XRay Report ---
XR knee RT 1 or 2V routine HISTORY: 85 years-old Male ?CPPD R knee chronic right knee pain COMPARISON: Right femur radiographs 06/10/2017 TECHNIQUE: 2 views of the right knee FINDINGS: Chondrocalcinosis of the medial and lateral compartments. Mild patellofemoral osteoarthritis with min imal medial and lateral compartment osteoarthritis. Moderate size joint effusion with ill-defined sup rapatellar calcifications. No osseous erosions. Arterial calcifications also noted. IMPRESSION: 1. Moderate sized joint effusion without acute fracture or dislocation. 2. Osteoarthritis of the knee, mild within the patellofemoral joint 3. Chondrocalcinosis. ACT 112: Negative or not required by law. The above report was generated using voice recognition software. It may contain grammatical, syntax o r spelling errors. Electronically signed by: Ethan Pinzon M.D. 07/13/2021 3:35 PM
--- NOTE | 2021-07-13 15:57 | CT Scan Report ---
CT chest diagnostic wo con CT DOSE: 971.59 mGy.cm HISTORY: dyspnea, CHF? pneumonia? other? TECHNIQUE: Multiaxial CT images of the chest were performed without contrast. A dose lowering techni que was utilized adhering to the principles of ALARA. COMPARISON: Chest CT 07/31/2011. FINDINGS: There are poststernotomy changes. Old postoperative changes also noted within the left late ral chest wall. No acute fractures within the visualized osseous structures. Limited views of the upp er abdomen demonstrate normal liver, spleen, and adrenal glands. Normal esophagus. The thyroid gland appears unremarkable. Normal caliber esophagus. The heart is mildly enlarged. Calcified plaque within the normal caliber thoracic aorta. Aortic valve prosthesis is again noted. There are small bilateral pleural effusions most pronounced on the right. Calcified enlarged mediastinal and hilar lymph nodes are not significantly changed. This is consistent with prior granulomatous disease. No pneumothorax. Mild narrowing of the central bronchi due to the bilateral hilar lymphadenopathy. This is also simil ar to the prior study. There is partial opacification within the lateral segmental bronchus of the ri ght middle lobe with associated consolidation within the lateral segment of the right middle lobe. Th is favors atelectasis. A pneumonia could also a similar appearance. There are few bibasilar linear de nsities suggesting subsegmental atelectasis. Mild emphysema. Mild interlobular septal thickening cons istent with mild pulmonary edema. Scattered partially calcified pulmonary nodules remain stable and a re therefore considered to be benign. IMPRESSION: 1. Cardiomegaly, small bilateral pleural effusions, and mild interlobular septal thickening consisten t with mild pulmonary edema. 2. Partial opacification of the lateral segmental bronchus of the right middle lobe with consolidatio n/collapse involving the lateral segment of the right middle lobe. This is likely due to compression of the right middle lobe bronchus from the chronic granulomatous disease within the right hilum. A fo rajendra pneumonia could also have a similar appearance in the appropriate clinical setting. 4. Calcified lymphadenopathy within the mediastinum and hilum with a few partially calcified pulmonar y nodules remain unchanged. This consistent with prior granulomatous disease/sarcoidosis. ACT 112: Negative or not required by law. Electronically signed by: Andrea Sahu M.D. 07/13/2021 3:56 PM
[2021-07-13] MEDS ORDERED: FUROSEMIDE INJ 20 MG/2 ML VIAL IV ONE (17:21)
[2021-07-13 17:37] LABS: Appearance Synovial Fluid CLOUDY; Color Synovial Fluid STRAW; Mononuclear WBC Synovial 10.8 %; Polynuclear WBC Synovial 89.2 %; RBC Synovial Fluid (A) < 3000 /uL; Source Synovial Fluid KNEE; WBC Synovial Fluid (A) 78068 /ul (0-200)
--- NOTE | 2021-07-13 18:04 | Orthopedic Consultation ---
Date of Service July 13, 2021 Assessment & Plan (1) Rotator cuff tear: (2) Effusion, right knee: He was seen and examined by Dr. Rodriguez today. We recommended aspiration of the right knee today. The fluid looked inflammatory and was sent to the lab for analysis. This is most likely gout/pseudogout but we sent it for cultures as well. With his shoulder pain and elevated esr/crp he could possibly have some PMR as well. Procedure note: right knee was sterilely prepped with alcohol and using aseptic technique approximately 35ml's of inflammatory looking fluid was aspirated from the knee joint. He tolerated the procedure well. No complications. This was sent for crystal analysis, cell count with diff, and gram stain/cultures. History of Present Illness Reason for Consultation: . Requesting Physician: . Attending Physician: Sathya Holder .85 year old patient admitted to the Hospitalist service for generalized weakness and leukocytosis. He was seen in our orthopedic clinic about 6 days ago and had a subacromial steroid injection for his right shoulder. He continues to have shoulder pain. The injection did not seem to help much. He apparently had an episode at his ophthalmology office yesterday and wasn't able to walk. He was brought to the hospital and admitted. He also has had some right knee pain and swelling. He has a h/o gout/pseudogout in the knee before. His wbc, ESR, and CRP are elevated. Allergies Allergy/AdvReac Type Severity Reaction Status Date / Time Penicillins Allergy Mild RASH Verified 07/12/21 15:54 celecoxib [From Celebrex] Allergy Unknown Verified 07/12/21 15:54 cyclobenzaprine Allergy Unknown Verified 07/12/21 15:54 [From Flexeril] simvastatin AdvReac Mild MUSCLE PAIN Verified 07/12/21 15:54 Home Medications Medication Instructions Recorded Confirmed Type atorvastatin 20 mg tablet 20 mg PO HS 03/04/19 07/12/21 History furosemide 40 mg tablet 20 mg PO QAM 03/04/19 07/12/21 History potassium chloride 20 mEq oral 20 meq PO QAM 11/12/19 07/12/21 History packet (Klor-Con) sotalol 80 mg tablet 40 mg PO QAM 11/12/19 07/12/21 History vit C,E,zinc,copper-ppndz0u 250 2 cap PO QAM 11/12/19 07/12/21 History mg-lutein 5 mg-zeaxanthin 1 mg capsule (Ocuvite Adult 50 Plus) tramadol 50 mg tablet 50 mg PO Q6 PRN 07/12/21 07/12/21 History warfarin 2 mg tablet 4 - 6 mg PO UD 07/12/21 07/12/21 History Past Med/Surg History Medical History History of atrial fibrillation History of cardioversion Hx of cardiac murmur Hypertension Macular degeneration GETS SHOTS IN EYES FOR TREATMENT Q8-10 WEEKS Restless leg syndrome Ventral hernia Surgical History History of aortic valve replacement AT AGE 58 ([facility]) History of colonoscopy History of inguinal hernia repair LEFT X 2 History of left cataract surgery 11/19/2019. propofol given. 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 Physical Exam .He is alert, NAD. He has painful and limited range of motion of the right shoulder. Skin is intact. He does have a moderate sized right knee effusion. No redness. Skin is intact. +tenderness generalized around the knee. Limited knee range of motion. Results & Data Results & Data Laboratory Results . Diagnostic Findings . xrays of the shoulder were reviewed and show no fracture/dislocation. He has some proximal humeral head migration suggesting chronic rotator cuff tear. xrays of the knee were reviewed and show no fractures. He does have a knee effusion PG Care Time/CCT Total # of Minutes Spent Total Time Spent with Patient: Total time spent is greater than 50% in coordination of care (as documented) at patient's floor/unit and/or counseling patient: Coding Level of Care Code 72341 Inpt Consult Level 3 Diagnoses Rotator cuff tear M75.100 Effusion, right knee M25.461
[2021-07-13] MEDS ORDERED: VANCOMYCIN CONSULT ACTIVE PRN (19:15)
[2021-07-13] MEDS ORDERED: VANCOMYCIN HCL 2,000 MG in SODIUM CHLORIDE 0.9% 500 ML IV SCH (20:00)
[2021-07-13] MEDS: cefTRIAXone SODIUM 2,000 MG in DEXTROSE 5% 50 ML IV SCH (21:30)
[2021-07-14 07:25] LABS: Hematocrit (blood only) 36.1 % (42-52); Hemoglobin 12.1 g/dL (14.0-18.0); Mean Corpuscular Hemoglobin 31.2 pg (25-34); Mean Corpuscular Hgb Conc 33.5 g/dL (32-36); Mean Platelet Volume 10.2 fL (7.4-10.4); Platelet Count 243 K/uL (130-400); RDW Coefficient of Variation 13.9 % (11.5-14.5); RDW Standard Deviation 47.4 fL (36.4-46.3); Red Blood Count 3.88 M/uL (4.7-6.1); White Blood Count 16.51 K/uL (4.8-10.8)
[2021-07-14 07:33] LABS: INR 2.2 (0.9-1.1); Prothrombin Time 20.9 Seconds (9.0-12.0)
[2021-07-14 07:49] LABS: BUN Creatinine Ratio 19.5 (10-20); Calcium 8.1 mg/dl (8.5-10.1); Est GFR (African American) 56.5 ml/min; Est GFR (Non-African American) 48.7 ml/min; Potassium 3.9 mmol/L (3.5-5.1)
[2021-07-14] MEDS: SOTALOL HCL 80 MG TAB PO SCH (07:55)
[2021-07-14 07:57] LABS: Basophils # (auto) 0.01 K/uL (0-0.2); Basophils % (auto) 0.1 %; Eosinophils # (auto) 0.04 K/uL (0-0.5); Eosinophils % (auto) 0.2 %; Immature Granulocytes # (auto) 0.05 K/uL (0.00-0.02); Immature Granulocytes % (auto) 0.3 %; Lymphocytes # (auto) 1.32 K/uL (1.2-3.4); Monocytes # (auto) 3.35 K/uL (0.11-0.59); Monocytes % (auto) 20.3 %; Neutrophils # (auto) 11.74 K/uL (1.4-6.5); Neutrophils % (auto) 71.1 %
[2021-07-14] MEDS: LIDOCAINE 5% 1 PATCH TD SCH (07:57)
[2021-07-14 07:59] LABS: RBC Morphology Unremarkable
--- NOTE | 2021-07-14 08:57 | Pharmacy Report ---
Pharmacy Vanc AUC Short Note - Date of Service July 14, 2021 - Assessment & Plan Assessment 85 year old M receiving empiric vancomycin + ceftriaxone for treatment of right knee effusion, possible pseudogout vs septic arthritis Patient presented with leukocytosis and elevated inflammatory markers (CRP 12.34, ESR 81) R knee aspirate obtained - culture pending Plan Vancomycin * Loading dose: 2000 mg IV * Maintenance dose: 1500 mg (15 mg/kg) IV q24h * This regimen is predicted to achieve target AUC/MARIAELENA of 400-600 mg/L.hr * AUC/MARIAELENA is the preferred PK/PD target for vancomycin * AUC guided dosing is effective and associated with decreased risk of nephrotoxicity compared to traditional trough targets * Level will be obtained if vanco is continued beyond 48 hours Ceftriaxone 2000 mg IV q24h Pharmacy will continue to follow and will adjust dose/frequency as necessary. Thank you.
[2021-07-14] MEDS ORDERED: FUROSEMIDE INJ 20 MG/2 ML VIAL IV ONE (09:00)
[2021-07-14] MEDS ORDERED: MoRPHine SULFATE 2 MG/ML CARP IV STA (14:19)
--- NOTE | 2021-07-14 14:22 | Hospitalist Progress Note ---
Date of Service July 14, 2021 Assessment & Plan (1) Left flank pain: Plan: etiology?? 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 infectious? pain meds? hyponatremia? combo? supportive care. avoid sedatives if possible. tramadol was d/c. for pain control - use 1/2 tab of norco only for pain. (4) Acute on chronic congestive heart failure: Plan: acute/chronic diastolic CHF. improving. cont lasix IV daily. hold po lasix. consider increase to bid dosing. I spoke with with Dr Toni Painter, [facility], his primary caterer's aide. Echo in 04/2021 with EF 55-60%. Severely enlarged left atrium. Valve gradients of prosthetic valves wnl. Repeat bmp am. (5) Effusion, right knee: Plan: Pseudogout vs septic arthritis vs combination. Appreciate ortho consult and assistance. s/p arthrocentesis. WBCs in synovial fluid >70,000. Crystal analysis c/w CPPD. Septic joint still possible given his leukocytosis, elevated inflammatory markers, etc. -- but synovial fluid cx still negative. To be on safe side - while awaiting final synovial fluid cx -continue rocephin/vanco IV. If culture remains negative then will place on low-dose prednisone starting tomorrow. (and will stop IV abx therapy) (6) Generalized weakness: Plan: reports 3-4 days of such prior to admission. I cannot exclude an infectious process. However, urine cx neg, blood cx neg, synovial fluid culture neg, COVID neg x 2, RSV/flu test negative. CT chest findings - no pneumonia (RML findings are chronic). concerned tramadol was large culprit for him?? This is being held. (7) Leukocytosis: Plan: See discussion above. Inflammatory arthropathy can cause leukocytosis. Still cannot rule out infectious etiology, however. Empiric abx while ruling out septicemia. Repeat cbc am. Repeat CRP am. (8) Rotator cuff tear: Plan: Bilateral. s/p right shoulder injection [address] Rodriguez in the office. Pain control. (9) Hyponatremia: Plan: 2nd volume overload, chronic lasix use, etc. Daily bmp. Cont IV lasix for CHF. (10) CKD (chronic kidney disease), stage III: Plan: BMP am. STable. (11) Moderate obstructive sleep apnea: Plan: No longer using CPAP for such. Follows with Dr Brett Narayanan. (12) Multiple pulmonary nodules: Plan: along with calcified lymph nodes. outpatient pulmonary notes suggest he had prior fungal infection in the past. does not have sarcoid. these nodules are chronic. (13) Coronary artery disease: Plan: Continue Atorvastatin and BB, and Warfarin no evidence of ACS (14) History of aortic valve replacement: Plan: noted (15) History of mitral valve replacement: Plan: noted (16) History of atrial fibrillation: Plan: noted cont sotalol to maintain NSR cont coumadin daily INR while hospitalized Plan: extensively updated at bedside today (I was in the room examining him when she arrived). Also called her at night tonight to update her on CT scan results. PT, OT when able Admission and Anticipated Discharge Date Admission Date: July 12, 2021 Subjective 2 visits to pt's room today first was on usual rounds he c/o severe L flank pain - stated it started yesterday morning?? I mentioned to him that he never brought this up, and nursing staff also reports that all day yesterday he did not say anything about L flank pain denies any dysuria no right flank pain feels distended in abdomen appetite remains very, very poor (zero intake on nursing flowsheets) reports breathing is better reports right knee pain is better reports shoulder pain is unchanged I obtained a CT a/p due to L flank pain - entirely negative for acute pathology - no kidney stones, no pyelonephritis, no diverticulitis, etc I saw him about 1830 to check on the L flank pain - now completely resolved he now has cervical spine pain - posterior - started after the L flank pain hurts to turn neck spoke with Dr Painter today from cardiology -- EF 55-60% on echo in 04/2021; prosthetic valves with intact function Review of Systems Review of Systems: gen - no fevers; is weak with very poor appetite pulm - dyspnea improved; no cough cv - no chest pain GI - no pain but did have fleeting L flank pain (now resolved); no nausea or emesis; last stool?? Physical Exam Physical Exam: gen - tachypnea, heavy breathing both improved today; looks more comfortable; still confused neck - no obvious JVD sitting at 90 degrees mouth - MMM heart - RRR, s1 s2 lungs - decreased BS bases, CTA apices b/l abd - distended, tympanic with percussion, BS+; severe L flank pain with palpation (during my first visit); during 2nd visit late in the day -- L flank tenderness on exam resolved ext - no edema, pulses 2+ b/l musculo - right knee wrapped in SCOTT; less tenderness to palpation today; less tenderness with passive ROM during 2nd visit late in the day -- neck -- restricted passive ROM (rotation, flexion); tender paraspinal regions to palpation Results & Data Results & Data ([facility]) Vital Signs (Past 12 Hours) Vital Signs Temp Pulse Resp BP Pulse Ox 07/14/21 07:05 36.5 C 63 14 152/76 H 94 Laboratory Results Laboratory Results - last 24 hr 07/13/21 07/13/21 07/13/21 14:30 17:23 20:21 WBC RBC Hgb Hct MCV MCH MCHC RDW Std Deviation RDW Coeff of Cresencio Plt Count MPV Immature Gran % (Auto) Neut % (Auto) Lymph % (Auto) Clarke % (Auto) Eos % (Auto) Baso % (Auto) Neut # (Auto) Lymph # (Auto) Clarke # (Auto) Eos # (Auto) Baso # (Auto) Immature Gran # (Auto) RBC Morphology PT INR Sodium Potassium Chloride Carbon Dioxide Anion Gap BUN Creatinine Est Cr Clr Drug Dosing Est GFR ( Amer) Est GFR (Non-Af Amer) BUN/Creatinine Ratio Glucose POC Glucose 106 H 113 H Calcium Magnesium Fluid Comment Synovial Source Synovial Color Synovial Appearance Synovial WBC Synovial RBC Synovial Polynuclear % Synovial Mononuclear % Synovial Crystals SARS-CoV-2 (PCR) NEGATIVE Influenza Type A (PCR) Negative Influenza Type B (PCR) Negative RSV (RT-PCR) Negative 07/13/21 07/13/21 07/14/21 Unknown Unknown 07:00 WBC 16.51 H RBC 3.88 L Hgb 12.1 L Hct 36.1 L MCV 93.0 MCH 31.2 MCHC 33.5 RDW Std Deviation 47.4 H RDW Coeff of Cresencio 13.9 Plt Count 243 MPV 10.2 Immature Gran % (Auto) 0.3 Neut % (Auto) 71.1 Lymph % (Auto) 8.0 Clarke % (Auto) 20.3 Eos % (Auto) 0.2 Baso % (Auto) 0.1 Neut # (Auto) 11.74 H Lymph # (Auto) 1.32 Clarke # (Auto) 3.35 H Eos # (Auto) 0.04 Baso # (Auto) 0.01 Immature Gran # (Auto) 0.05 H RBC Morphology Unremarkable PT INR Sodium Potassium Chloride Carbon Dioxide Anion Gap BUN Creatinine Est Cr Clr Drug Dosing Est GFR ( Amer) Est GFR (Non-Af Amer) BUN/Creatinine Ratio Glucose POC Glucose Calcium Magnesium Fluid Comment Synovial Source KNEE Synovial Color STRAW Synovial Appearance CLOUDY Synovial WBC 93334 H Synovial RBC < 3000 Synovial Polynuclear % 89.2 Synovial Mononuclear % 10.8 Synovial Crystals SARS-CoV-2 (PCR) Influenza Type A (PCR) Influenza Type B (PCR) RSV (RT-PCR) 07/14/21 07/14/21 07:00 07:00 WBC RBC Hgb Hct MCV MCH MCHC RDW Std Deviation RDW Coeff of Cresencio Plt Count MPV Immature Gran % (Auto) Neut % (Auto) Lymph % (Auto) Clarke % (Auto) Eos % (Auto) Baso % (Auto) Neut # (Auto) Lymph # (Auto) Clarke # (Auto) Eos # (Auto) Baso # (Auto) Immature Gran # (Auto) RBC Morphology PT 20.9 H INR 2.2 H Sodium 131 L Potassium 3.9 Chloride 98 Carbon Dioxide 27 Anion Gap 6 BUN 26 H Creatinine 1.33 Est Cr Clr Drug Dosing 47.0 Est GFR ( Amer) 56.5 Est GFR (Non-Af Amer) 48.7 BUN/Creatinine Ratio 19.5 Glucose 100 H POC Glucose Calcium 8.1 L Magnesium 2.0 Fluid Comment Synovial Source Synovial Color Synovial Appearance Synovial WBC Synovial RBC Synovial Polynuclear % Synovial Mononuclear % Synovial Crystals SARS-CoV-2 (PCR) Influenza Type A (PCR) Influenza Type B (PCR) RSV (RT-PCR) Diagnostic Findings Abdomen/Pelvis CT 07/14/21 14:18 CT OF THE ABDOMEN AND PELVIS WITH CONTRAST CLINICAL HISTORY: Severe left flank pain. Abdominal distention. COMPARISON STUDY: CT of the abdomen and pelvis June 12, 2016. TECHNIQUE: Following IV administration of 91 mL of Optiray, axial images of the abdomen and pelvis were obtained from the lung bases to the proximal femurs. Images were reviewed in the axial, sagittal, and coronal planes. IV contrast was administered without complication. Automated exposure control was utilized for the study. A dose lowering technique was utilized adhering to the principles of ALARA. CT DOSE: 1102.03 mGy.cm FINDINGS: Imaged portions of the lower chest partially visualize moderate right and small left pleural effusions. Cardiomegaly is noted. There is mild interlobular septal thickening. Several small nodules within the lower lungs are unchanged since CT of June 12, 2016. No pneumatosis, free air or portal venous gas is present. Several right renal cysts measure up to 9.2 cm. There is no hydronephrosis. There are no urinary calculi. The liver, spleen, adrenal glands and pancreas are unremarkable. No biliary or pancreatic ductal dilatation is present. There is no peripancreatic or pericholecystic infiltration. Mildly enlarged upper abdominal lymph nodes are unchanged. An enlarged right posterior mediastinal lymph node is unchanged. There is colonic diverticulosis with evidence for acute diverticulitis. There is no ascites. No acute fracture or suspicious lesion is identified within the visualized skeletal structures. IMPRESSION: 1. No acute process within the abdomen or pelvis. 2. Partially visualized moderate right and small left pleural effusions. 3. Colonic diverticulosis. No evidence for acute diverticulitis. 4. No bowel obstruction. 5. No urinary calculi or hydronephrosis. ACT 112: Negative or not required by law. Electronically signed by: Leo Pastrana M.D. 07/14/2021 4:28 PM PG Care Time/CCT Total # of Minutes Spent Total Time Spent with Patient: Total time spent is greater than 50% in coordination of care (as documented) at patient's floor/unit and/or counseling patient: Coding Level of Care Code 23814 Subseq Hosp Care Lvl 3 Diagnoses Acute on chronic congestive heart failure I50.9 Effusion, right knee M25.461 Generalized weakness R53.1 Leukocytosis D72.829 Rotator cuff tear M75.100 Hyponatremia E87.1 CKD (chronic kidney disease), stage III N18.30 Moderate obstructive sleep apnea G47.33 Multiple pulmonary nodules R91.8 Coronary artery disease I25.10 History of aortic valve replacement Z95.2 History of mitral valve replacement Z95.2 History of atrial fibrillation Z86.79 Left flank pain R10.9 Cervicalgia M54.2 Acute encephalopathy G93.40
[2021-07-14] MEDS ORDERED: OPTIRAY 320 100ml IV ONE (15:55)
[2021-07-14] MEDS: WARFARIN SOD 6 MG TAB PO SCH (16:12)
--- NOTE | 2021-07-14 16:29 | CT Scan Report ---
CT OF THE ABDOMEN AND PELVIS WITH CONTRAST CLINICAL HISTORY: Severe left flank pain. Abdominal distention. COMPARISON STUDY: CT of the abdomen and pelvis June 12, 2016. TECHNIQUE: Following IV administration of 91 mL of Optiray, axial images of the abdomen and pelvis we re obtained from the lung bases to the proximal femurs. Images were reviewed in the axial, sagittal, and coronal planes. IV contrast was administered without complication. Automated exposure control wa s utilized for the study. A dose lowering technique was utilized adhering to the principles of ALARA . CT DOSE: 1102.03 mGy.cm FINDINGS: Imaged portions of the lower chest partially visualize moderate right and small left pleura l effusions. Cardiomegaly is noted. There is mild interlobular septal thickening. Several small nodul es within the lower lungs are unchanged since CT of June 12, 2016. No pneumatosis, free air or por solomon venous gas is present. Several right renal cysts measure up to 9.2 cm. There is no hydronephrosis . There are no urinary calculi. The liver, spleen, adrenal glands and pancreas are unremarkable. No b iliary or pancreatic ductal dilatation is present. There is no peripancreatic or pericholecystic infi ltration. Mildly enlarged upper abdominal lymph nodes are unchanged. An enlarged right posterior medi astinal lymph node is unchanged. There is colonic diverticulosis with evidence for acute diverticulit is. There is no ascites. No acute fracture or suspicious lesion is identified within the visualized s keletal structures. IMPRESSION: 1. No acute process within the abdomen or pelvis. 2. Partially visualized moderate right and small left pleural effusions. 3. Colonic diverticulosis. No evidence for acute diverticulitis. 4. No bowel obstruction. 5. No urinary calculi or hydronephrosis. ACT 112: Negative or not required by law. Electronically signed by: Leo Pastrana M.D. 07/14/2021 4:28 PM
[2021-07-14] MEDS ORDERED: VANCOMYCIN HCL 1,500 MG in SODIUM CHLORIDE 0.9% 500 ML IV SCH (20:00)
[2021-07-14] MEDS ORDERED: HYDROCODONE/ACETAMOPHEN 5/325MG TAB PO PRN (20:28)
[2021-07-14] MEDS: MELATONIN 3 MG TAB PO SCH (21:29)
[2021-07-14] MEDS: ATORVASTATIN 20 MG TAB PO SCH (21:29)
[2021-07-14] MEDS: ACETAMINOPHEN 500 MG TAB PO SCH (21:29)
[2021-07-14] MEDS: DICLOFENAC SOD 1% GEL 100 GM TUBE EXT SCH (21:30)
[2021-07-14] MEDS: cefTRIAXone SODIUM 2,000 MG in DEXTROSE 5% 50 ML IV SCH (21:30)
[2021-07-15 07:00] LABS: Hematocrit (blood only) 36.4 % (42-52); Hemoglobin 12.3 g/dL (14.0-18.0); Mean Corpuscular Hemoglobin 31.2 pg (25-34); Mean Corpuscular Hgb Conc 33.8 g/dL (32-36); Mean Corpuscular Volume 92.4 fL (80-100); Mean Platelet Volume 10.9 fL (7.4-10.4); Platelet Count 247 K/uL (130-400); RDW Coefficient of Variation 13.9 % (11.5-14.5); RDW Standard Deviation 47.2 fL (36.4-46.3); Red Blood Count 3.94 M/uL (4.7-6.1); White Blood Count 15.27 K/uL (4.8-10.8)
[2021-07-15 07:18] LABS: BUN Creatinine Ratio 20.7 (10-20); Calcium 8.1 mg/dl (8.5-10.1); Creatinine Clr Calc Pharmacy 41.7 ml/min; Est GFR (African American) 48.8 ml/min; Est GFR (Non-African American) 42.1 ml/min; INR 2.3 (0.9-1.1); Potassium 3.8 mmol/L (3.5-5.1); Prothrombin Time 21.9 Seconds (9.0-12.0)
[2021-07-15 07:30] LABS: Eosinophils # (auto) 0.05 K/uL (0-0.5); Eosinophils % (auto) 0.3 %; Immature Granulocytes # (auto) 0.05 K/uL (0.00-0.02); Immature Granulocytes % (auto) 0.3 %; Lymphocytes # (auto) 1.12 K/uL (1.2-3.4); Lymphocytes % (auto) 7.3 %; Monocytes # (auto) 3.21 K/uL (0.11-0.59); Neutrophils # (auto) 10.84 K/uL (1.4-6.5); Neutrophils % (auto) 71.1 %
[2021-07-15] MEDS: LIDOCAINE 5% 1 PATCH TD SCH (08:26)
[2021-07-15] MEDS: DICLOFENAC SOD 1% GEL 100 GM TUBE EXT SCH ×4 (08:26→20:36)
[2021-07-15] MEDS: SOTALOL HCL 80 MG TAB PO SCH (08:26)
[2021-07-15] MEDS: ACETAMINOPHEN 500 MG TAB PO SCH ×2 (08:26→20:36)
[2021-07-15] MEDS ORDERED: bisacodyL 10 MG SUPP PR STA (08:28)
[2021-07-15] MEDS ORDERED: predniSONE 20 MG TAB PO STA (13:14)
[2021-07-15] MEDS ORDERED: bisacodyL 10 MG SUPP PR ONE (13:31)
[2021-07-15] MEDS ORDERED: WARFARIN SOD 4 MG TAB PO SCH (16:00)
--- NOTE | 2021-07-15 19:38 | Hospitalist Progress Note ---
Date of Service July 15, 2021 Assessment & Plan (1) Pseudogout of right knee: Plan: s/p arthrocentesis by Dr Rodriguez. CPPD crystals seen; cell counts c/w inflammatory arthropathy. gram stain/culture negative. thus, no septic arthritis. d/c empiric IV antibiotics. blood cx's also negative. will avoid NSAIDs due to coumadin use. start prednisone for R knee - prednisone will also help R shoulder, neck, etc. 20mg x 1 now, then 10mg po daily in AM. plan ~7 days of prednisone low-dose. (2) Acute encephalopathy: Plan: exact etiology uncertain but it does not appear to be metabolic from an infectious cause. urine/blood/synovial fluid cx's negative. COVID x 2 negative. RSV/influenza PCR negative. RML findings on CT chest appear chronic; no symptoms to suggest pneumonia. altered mental status likely toxic +/- pain?? was taking tramadol at home - this could have caused confusion. steroid from steroid injection in R shoulder theoretically could have contributed. I have seen rarely pain cause confusion. Mild hyponatremia could have contributed metabolically. either way his mental status is much better today. cont supportive care. if he needs pain control -- to try and avoid toxic encephalopathy -- try very low-dose norco 1/2 tab prn. 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 improved, with rise in creatinine today. hold additional IV lasix; already holding his home PO lasix. I spoke with with Dr Toni Painter, [facility], his primary packing inspector. Echo in 04/2021 with EF 55-60%. Severely enlarged left atrium. Valve gradients of prosthetic valves wnl. Repeat bmp am. (6) Effusion, right knee: Plan: see #1 above (7) Generalized weakness: Plan: reports 3-4 days of such prior to admission. It does not appear he had any infectious cause of such. CT chest findings - no pneumonia (RML findings are chronic). concerned tramadol was large culprit for him - I do agree it likely contributed. He had numerous areas of pain and the pain certainly could have added fuel to his weakness. I do not think he has PMR although I cannot exclude it fully. Again the prednisone will be for his R knee pseudogout. Follow inflammatory markers. Once pseudogout flare is resolved and he is off the short-course prednisone will need to follow his musculoskeletal complaints over the next few weeks. (8) Leukocytosis: Plan: Most infectious etiologies have been ruled out. Inflammatory arthropathy can cause leukocytosis. Will stop empiric rocephin/vancomycin today given negative cultures and no infectious source. Repeat cbc am. Repeat CRP in 48 hours. (9) Rotator cuff tear: Plan: Bilateral. s/p right shoulder injection by Dr Rodriguez in the office last week. Cont Pain control. (10) Hyponatremia: Plan: 2nd volume overload, chronic lasix use, etc. Daily bmp. (11) CKD (chronic kidney disease), stage III: Plan: BMP am. stable. (12) Moderate obstructive sleep apnea: Plan: No longer using CPAP for such. Follows with Dr Brett Narayanan. (13) Multiple pulmonary nodules: Plan: along with calcified lymph nodes. outpatient pulmonary notes suggest he had prior fungal infection in the past / granulomatous disease. does not have sarcoid. these nodules are chronic. RML findings on CT are chronic. (14) Coronary artery disease: Plan: Continue Atorvastatin and BB, and Warfarin no evidence of ACS (15) History of aortic valve replacement: Plan: noted bioprosthetic (16) History of mitral valve replacement: Plan: noted bioprosthetic (17) History of atrial fibrillation: Plan: noted cont sotalol to maintain NSR cont coumadin daily INR while hospitalized INR goal 2-3 Plan: updated by phone this evening and at bedside yesterday cont PT, OT will likely need rehab post-d/c Admission and Anticipated Discharge Date Admission Date: July 12, 2021 Subjective pt feeling "much better" today right knee is sore but not as painful as previous he has not had recurrent left flank pain neck pain is improved with voltaren right shoulder pain - chronic - remains still has not had a bowel movement appetite is much improved today he was oriented x 3 today during my bedside rounds Review of Systems Review of Systems: gen - no fevers, fatigue and anorexia improved cv - no cp pulm - no cough; dyspnea much better GI - no abd pain but is bloated Physical Exam Physical Exam: gen - looks MUCH better today; breathing is normal/not labored/not tachypneic; no confusion; oriented x 3 neck - no JVD today mouth - MMM heart - RRR, s1 s2 lungs - decreased BS bases, CTA apices b/l abd - still mildly distended but nontender, BS+; no flank pain b/l with palpation ext - no edema, pulses 2+ b/l musculo - right knee wrapped in SCOTT; effusion still present. Right shoulder - lidoderms in place, decreased active ROM due to pain. psych - a/o x 3 Results & Data Results & Data ([facility]) Vital Signs (Past 12 Hours) Vital Signs Temp Pulse Resp BP Pulse Ox 07/15/21 15:26 36.5 C 60 20 139/66 95 07/15/21 07:51 37.2 C 62 20 136/67 94 Laboratory Results Laboratory Results - last 24 hr 07/15/21 07/15/21 07/15/21 06:30 06:30 06:30 WBC 15.27 H RBC 3.94 L Hgb 12.3 L Hct 36.4 L MCV 92.4 MCH 31.2 MCHC 33.8 RDW Std Deviation 47.2 H RDW Coeff of Cresencio 13.9 Plt Count 247 MPV 10.9 H Immature Gran % (Auto) 0.3 Neut % (Auto) 71.1 Lymph % (Auto) 7.3 Wetzel % (Auto) 21.0 Eos % (Auto) 0.3 Baso % (Auto) 0.0 Neut # (Auto) 10.84 H Lymph # (Auto) 1.12 L Wetzel # (Auto) 3.21 H Eos # (Auto) 0.05 Baso # (Auto) 0.00 Immature Gran # (Auto) 0.05 H PT 21.9 H INR 2.3 H Sodium 131 L Potassium 3.8 Chloride 99 Carbon Dioxide 23 Anion Gap 9 BUN 31 H Creatinine 1.50 H Est Cr Clr Drug Dosing 41.7 Est GFR ( Amer) 48.8 Est GFR (Non-Af Amer) 42.1 BUN/Creatinine Ratio 20.7 H Glucose 102 H Calcium 8.1 L C-Reactive Protein 07/15/21 06:30 WBC RBC Hgb Hct MCV MCH MCHC RDW Std Deviation RDW Coeff of Cresencio Plt Count MPV Immature Gran % (Auto) Neut % (Auto) Lymph % (Auto) Wetzel % (Auto) Eos % (Auto) Baso % (Auto) Neut # (Auto) Lymph # (Auto) Wetzel # (Auto) Eos # (Auto) Baso # (Auto) Immature Gran # (Auto) PT INR Sodium Potassium Chloride Carbon Dioxide Anion Gap BUN Creatinine Est Cr Clr Drug Dosing Est GFR ( Amer) Est GFR (Non-Af Amer) BUN/Creatinine Ratio Glucose Calcium C-Reactive Protein 29.87 H PG Care Time/CCT Total # of Minutes Spent Total Time Spent with Patient: Total time spent is greater than 50% in coordination of care (as documented) at patient's floor/unit and/or counseling patient: Coding Level of Care Code 50603 Subseq Hosp Care Lvl 3 Diagnoses Left flank pain R10.9 Cervicalgia M54.2 Acute encephalopathy G93.40 Acute on chronic congestive heart failure I50.9 Effusion, right knee M25.461 Generalized weakness R53.1 Leukocytosis D72.829 Rotator cuff tear M75.100 Hyponatremia E87.1 CKD (chronic kidney disease), stage III N18.30 Moderate obstructive sleep apnea G47.33 Multiple pulmonary nodules R91.8 Coronary artery disease I25.10 History of aortic valve replacement Z95.2 History of mitral valve replacement Z95.2 History of atrial fibrillation Z86.79 Pseudogout of right knee M11.261
[2021-07-15] MEDS: MELATONIN 3 MG TAB PO SCH (20:36)
[2021-07-15] MEDS: ATORVASTATIN 20 MG TAB PO SCH (20:36)
[2021-07-16] MEDS: predniSONE 10 MG TABLET PO SCH (08:25)
[2021-07-16] MEDS: SOTALOL HCL 80 MG TAB PO SCH (08:25)
[2021-07-16] MEDS: DICLOFENAC SOD 1% GEL 100 GM TUBE EXT SCH ×4 (08:26→20:14)
[2021-07-16] MEDS: LIDOCAINE 5% 1 PATCH TD SCH (08:26)
[2021-07-16] MEDS: ACETAMINOPHEN 500 MG TAB PO SCH ×2 (08:27→20:14)
[2021-07-16 09:15] LABS: Hematocrit (blood only) 37.1 % (42-52); Mean Corpuscular Hemoglobin 32.1 pg (25-34); Mean Corpuscular Volume 91.6 fL (80-100); Mean Platelet Volume 10.6 fL (7.4-10.4); Platelet Count 287 K/uL (130-400); RDW Coefficient of Variation 13.6 % (11.5-14.5); RDW Standard Deviation 45.5 fL (36.4-46.3); Red Blood Count 4.05 M/uL (4.7-6.1); White Blood Count 12.83 K/uL (4.8-10.8)
[2021-07-16 09:26] LABS: Prothrombin Time 27.6 Seconds (9.0-12.0)
--- NOTE | 2021-07-16 09:29 | Hospitalist Progress Note ---
Date of Service July 16, 2021 Assessment & Plan (1) Left flank pain: Plan: etiology?? 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 No pain with deep inspiration. (2) Cervicalgia: Plan: 2018 c-spine imaging with considerable DJD suspect such as current cause of pain Continue voltaren gel qid Seems to be resolved today (3) Acute encephalopathy: Plan: Resolved. Continue supportive care. avoid sedatives if possible. tramadol was d/c. for pain control - use 1/2 tab of norco only for pain. (4) Acute on chronic congestive heart failure: Plan: acute/chronic diastolic CHF. improving. cont lasix IV daily. hold po lasix. consider increase to bid dosing if no improvement. However, prerenal with labs (BUN 33/creatinine 1.35) Dr. Holder spoke with with Dr Toni Painter, [facility], his primary enrollment advisor. Echo in 04/2021 with EF 55-60%. Severely enlarged left atrium. Valve gradients of prosthetic valves wnl. Follow serial labs (5) Effusion, right knee: Plan: Pseudogout vs septic arthritis vs combination. Appreciate ortho consult and assistance. s/p arthrocentesis. WBCs in synovial fluid >70,000. Crystal analysis c/w CPPD. Synovial fluid is negative for growth. Patient continues with elevated CRP To be on safe side - continue rocephin/vanco IV for possible septic joint. Inasmuch as culture remains negative, will place on low-dose prednisone starting tomorrow and stop antibiotics if patient is afebrile Procalcitonin would not elucidate much information as patient has renal failure. (6) Generalized weakness: Plan: reports 3-4 days of such prior to admission. Cannot exclude an infectious process although unlikely However, urine cx neg, blood cx neg, synovial fluid culture neg, COVID neg x 2, RSV/flu test negative. CT chest findings - no pneumonia (RML findings are chronic). Chest x-ray today shows small bilateral pleural effusions, right larger than left. No evidence of consolidation or active infection concerned tramadol was large culprit for him so we will continue to hold (7) Leukocytosis: Plan: See discussion above. Inflammatory arthropathy can cause leukocytosis. Still cannot rule out infectious etiology, however. Empiric abx while ruling out septicemia. CRP continues to be elevated Follow serial CBC All cultures are negative for growth thus far (8) Rotator cuff tear: Plan: Bilateral. s/p right shoulder injection [address] Rodriguez in the office. Pain generally controlled (9) Hyponatremia: Plan: 2nd volume overload, chronic lasix use, etc. Daily bmp. Cont IV lasix for CHF and follow serial labs (10) CKD (chronic kidney disease), stage III: Plan: Slight bump in BMP and creatinine due to IV diuretics Check repeat labs in the morning and adjust diuresis (11) Moderate obstructive sleep apnea: Plan: No longer using CPAP for such. Follows with Dr Brett Narayanan. (12) Multiple pulmonary nodules: Plan: along with calcified lymph nodes. outpatient pulmonary notes suggest he had prior fungal infection in the past. does not have sarcoid. these nodules are chronic. Repeat chest x-ray today with no acute findings consolidation or infection (13) Coronary artery disease: Plan: Continue Atorvastatin and BB, and Warfarin no evidence of ACS (14) History of aortic valve replacement: Plan: noted (15) History of mitral valve replacement: Plan: noted (16) History of atrial fibrillation: Plan: noted cont sotalol to maintain NSR cont coumadin daily INR while hospitalized -currently therapeutic (17) Elevated C-reactive protein (CRP): Plan: Negative for SARsCOV2 on 07/12/2021 and 07/13/2021 CRP yesterday may be elevated from pseudogout of the right knee CT scan of the chest on 07/13/2021 reviewed. Some collapse of right bronchioles as well as possible chronic granulomatous disease SaO2 97% on room air Chest x-ray today with no new opacifications. Repeat CRP with a.m. labs today continues to remain elevated Plan: Awaiting placement for rehab PT, OT when able Admission and Anticipated Discharge Date Admission Date: July 12, 2021 Subjective Attending: Dr. Fiore Patient seen and examined in room 377. Patient admitted with weakness, leukocytosis, altered mental status. May be from steroid injected 1 week ago for right shoulder. Patient seemed to be doing better. Routine labs due to right knee pain showed elevated inflammatory markers. Currently awaiting placement at rehab facility. Elevated CRP at 29. Negative for SARSCOV2 on 07/12/2021 and 07/13/2021. No hypoxia. SaO2 97% on room air. CT with partial opacification of the segmental bronchus of right middle lobe. This could be a result of chronic granulomatous disease. We will repeat chest x-ray today. Patient denies any shortness of breath. He does have some edema of lower extremities. He denies any acute pain. He has no complaints of fever, chills, sweats, rigors. He has no other acute complaints at this time. Right knee and leg pain has resolved. Review of Systems Review of Systems: All systems reviewed & are unremarkable except as noted in Subjective Physical Exam Physical Exam: GENERAL : No acute distress EYES: No icterus, gaze conjugate NOSE: No evidence of epistaxis MOUTH: No lesions or candidiasis NECK: Supple LUNGS: CTA B/L, no wheezes, rales or rhonchi HEART: Regular, rate controlled ABDOMEN: Soft, NT, ND, BS Present EXTREMITIES: No LE edema, pedal pulses intact. No acute tenderness to right knee. Minimal tenderness to palpation of right foot. NEURO: A&OX3 Results & Data Results & Data ([facility]) Vital Signs (Past 12 Hours) Vital Signs Temp Pulse Pulse Resp BP Pulse Ox 07/16/21 07:50 36.5 C 56 L 18 173/69 H 97 07/15/21 22:39 36.3 C L 59 L 19 131/73 94 Critical Care Results & Data Vital Signs (Past 12 Hours) Vital Signs Temp Pulse Pulse Resp BP Pulse Ox 07/16/21 07:50 36.5 C 56 L 18 173/69 H 97 07/15/21 22:39 36.3 C L 59 L 19 131/73 94 Lab & Micro Results (Past 24 Hours) RBC 4.05 M/uL (4.7-6.1) L 07/16/21 WBC 12.83 K/uL (4.8-10.8) H 07/16/21 Hgb 13.0 g/dL (14.0-18.0) L 07/16/21 Hct 37.1 % (42-52) L 07/16/21 MCV 91.6 fL (80-100) 07/16/21 MCH 32.1 pg (25-34) 07/16/21 MCHC 35.0 g/dL (32-36) 07/16/21 RDW Standard Deviation 45.5 fL (36.4-46.3) 07/16/21 RDW Coefficient of Variation 13.6 % (11.5-14.5) 07/16/21 Plt Count 287 K/uL (130-400) 07/16/21 MPV 10.6 fL (7.4-10.4) H 07/16/21 Na 133 mmol/L (136-145) L 07/16/21 K 4.0 mmol/L (3.5-5.1) 07/16/21 Cl 101 mmol/L (98-107) 07/16/21 CO2 24 mmol/L (21-32) 07/16/21 Anion Gap 8 (3-11) 07/16/21 BUN 33 mg/dl (6-23) H 07/16/21 Creatinine 1.35 mg/dl (0.6-1.4) 07/16/21 Estimated GFR ( Amer) 55.5 ml/min 07/16/21 Estimated GFR (Non-Af Amer) 47.9 ml/min 07/16/21 BUN/Creatinine Ratio 24.4 (10-20) H 07/16/21 Glu 132 mg/dl (70-99(Fasting)) H 07/16/21 Ca 8.3 mg/dl (8.5-10.1) L 07/16/21 Calcium Level 8.3 mg/dl (8.5-10.1) L 07/16/21 08:58 07/16/21 Prothromb Time International Ratio 3.0 (0.9-1.1) H 07/16/21 08:58 07/16/21 I & O Totals 24 Hours 07/15/21 07/16/21 07/17/21 06:59 06:59 06:59 Intake Total 720 / 720 400 / 400 Output Total 250 / 250 820 / 820 200 / 200 Balance 470 / 470 -420 / -420 -200 / -200 Cumulative 07/12/21 12:11 thru 07/16/21 08:33 Intake Total 4950.000 Output Total 1520 Balance 3430.000 RT Ventilator Mngmt (Last Documented) Ventilator Ordered Settings Respiratory Rate 18 07/16/21 07:50 Fraction of Inspired Oxygen 0 07/12/21 12:43 Ventilator - PT Measurements Respiratory Rate 18 PG Care Time/CCT Total # of Minutes Spent Total Time Spent with Patient: Total time spent is greater than 50% in coordination of care (as documented) at patient's floor/unit and/or counseling patient: 30 minutes Coding Level of Care Code 48288 Subseq Hosp Care Lvl 2 Diagnoses Left flank pain R10.9 Cervicalgia M54.2 Acute encephalopathy G93.40 Acute on chronic congestive heart failure I50.9 Effusion, right knee M25.461 Generalized weakness R53.1 Leukocytosis D72.829 Rotator cuff tear M75.100 Hyponatremia E87.1 CKD (chronic kidney disease), stage III N18.30 Moderate obstructive sleep apnea G47.33 Multiple pulmonary nodules R91.8 Coronary artery disease I25.10 History of aortic valve replacement Z95.2 History of mitral valve replacement Z95.2 History of atrial fibrillation Z86.79 Elevated C-reactive protein (CRP) R79.82 Time Spent (min) 30
[2021-07-16 09:34] LABS: BUN Creatinine Ratio 24.4 (10-20); Calcium 8.3 mg/dl (8.5-10.1); Creatinine Clr Calc Pharmacy 46.3 ml/min; Est GFR (African American) 55.5 ml/min; Est GFR (Non-African American) 47.9 ml/min
--- NOTE | 2021-07-16 10:07 | XRay Report ---
XR chest 2V PA/lateral CLINICAL HISTORY: Elevated CRP COMPARISON STUDY: Chest radiograph July 12, 2021. Chest CT July 13, 2021. FINDINGS: No pneumothorax is present. There are small bilateral pleural effusions, right larger than left. Cardiomegaly is noted. Prosthetic mitral valve, mediastinal surgical clips and median sternotom y wires are present.] Opacities unchanged. This favors atelectasis and is likely chronic. There is pu lmonary vascular congestion without overt pulmonary edema. Appearance of the chest is unchanged. IMPRESSION: 1. Stable cardiomegaly and pulmonary vascular congestion. 2. Small bilateral pleural effusions, right larger than left. ACT 112: Negative or not required by law. Electronically signed by: Leo Pastrana M.D. 07/16/2021 10:05 AM
--- NOTE | 2021-07-16 11:03 | Progress Notes ---
DATE OF SERVICE: 07/16/2021. SUBJECTIVE: An 85-year-old gentleman admitted with multiple medical comorbidities and just weakness and failure to thrive. We aspirated his knee several days ago and sent off for analysis. He has als o had some shoulder pain. He seems to be doing quite a bit better this morning. Knee pain is improv ed. Shoulder pain has improved some, but it still does not work real great. OBJECTIVE: VITAL SIGNS: Temperature 36.5. Vital signs are stable. PHYSICAL EXAMINATION: GENERAL: Shows a pleasant middle-aged male. He is lying in bed, looks pretty comfortable. Seems mo re awake, alert and appropriate, and just more comfortable and feeling better today. EXTREMITIES: Examination of the right knee reveals just a small knee effusion. He can do a good str aight leg raise. 0-90 degrees of motion without much pain. Examination of the ____ shoulder reveals much less pain with motion. He still cannot actively lift it real great. He is neurologically inta ct otherwise. LABORATORY DATA: Culture results are no growth to date from the knee joint fluid. It has shown pseu dogout. ASSESSMENT: An 85-year-old gentleman admitted with multiple medical comorbidities, fatigue and disco mfort with ____ shoulder pain and right knee effusion. This is all consistent with pseudogout based on his aspirate. Cultures showed no growth. I do not suspect this is infectious. He seems to be do ing better. PLAN: At this point, we would recommend he just progress activities as tolerated. I do think he wou ld benefit from some oral steroids, which may help all this. He may have some degree of polymyalgia rheumatica as well, which may contribute some to the shoulder and just muscle pains. I do not think there is an infectious etiology. We will continue to follow him along. I am really not too keen on injecting his knee at this point until final culture growths are back. I would recommend oral steroi ds for now. Any orthopedic questions can be directed to me at [phone]. Job ID: [id number]
[2021-07-16] MEDS: WARFARIN SOD 6 MG TAB PO SCH (16:42)
[2021-07-16] MEDS: MELATONIN 3 MG TAB PO SCH (20:13)
[2021-07-16] MEDS: ATORVASTATIN 20 MG TAB PO SCH (20:13)
--- NOTE | 2021-07-17 07:41 | Hospitalist Progress Note ---
Date of Service July 17, 2021 Assessment & Plan (1) Acute on chronic congestive heart failure: Plan: acute/chronic diastolic CHF. lasix po daily Dr. Holder spoke with with Dr Toni Painter, [facility], his primary civil engineering teacher. Echo in 04/2021 with EF 55-60%. Severely enlarged left atrium. Valve gradients of prosthetic valves wnl. (2) Cervicalgia: Plan: 2018 c-spine imaging with considerable DJD suspect such as current cause of pain Continue voltaren gel qid resolved (3) Acute encephalopathy: Plan: Resolved. Continue supportive care. avoid sedatives if possible. tramadol was d/c. for pain control - use 1/2 tab of norco only for pain. (4) Effusion, right knee: Plan: Pseudogout but with increased wbc in fluid treat for septic arthritis rocephin/vanco IV for possible septic joint. Appreciate ortho consult and assistance. s/p arthrocentesis. WBCs in synovial fluid >70,000. Crystal analysis c/w CPPD. Synovial fluid is negative for growth. Patient continues with elevated CRP (5) Generalized weakness: Plan: reports 3-4 days of such prior to admission. Cannot exclude an infectious process although unlikely However, urine cx neg, blood cx neg, synovial fluid culture neg, COVID neg x 2, RSV/flu test negative. CT chest findings - no pneumonia (RML findings are chronic). Chest x-ray today shows small bilateral pleural effusions, right larger than left. No evidence of consolidation or active infection concerned tramadol was large culprit for him so we will continue to hold (6) Rotator cuff tear: Plan: Bilateral. s/p right shoulder injection [address] Rodriguez in the office. Pain generally controlled (7) Hyponatremia: Plan: 2nd volume overload, chronic lasix use, etc. Cont lasix for CHF and follow serial labs (8) CKD (chronic kidney disease), stage III: Plan: Slight bump in BMP and creatinine due to IV diuretics Check repeat labs in the morning and adjust diuresis (9) Moderate obstructive sleep apnea: Plan: No longer using CPAP for such. Follows with Dr Brett Narayanan. (10) Multiple pulmonary nodules: Plan: along with calcified lymph nodes. outpatient pulmonary notes suggest he had prior fungal infection in the past. does not have sarcoid. these nodules are chronic. Repeat chest x-ray with no acute findings consolidation or infection (11) Coronary artery disease: Plan: Continue Atorvastatin and BB, and Warfarin no evidence of ACS (12) History of aortic valve replacement: Plan: noted (13) History of mitral valve replacement: Plan: noted (14) History of atrial fibrillation: Plan: sotalol to maintain NSR anticoagulation with coumadin Plan: Awaiting placement for rehab PT, OT when able Admission and Anticipated Discharge Date Admission Date: July 12, 2021 Subjective this pt states his knee is feeling much better and he is able to bear weight but is deconditioned and is hopefuling for rehab Review of Systems Review of Systems: Mild distress and fatigue no headache, no visual changes no speech or swallowing issues no chest pain, pressure or palpitations no shortness of breath, cough or wheezes no abdominal pain, nausea or vomiting, diarrhea or constipation no dysuria, hematuria or frequency still some right knee pain with no swelling or warmth no back pain, CVA tenderness or radicular pain no bruising, bleeding or rashes no focal signs of weakness or numbness or altered sensation no complaints of anxiety or depression Physical Exam Physical Exam: Mild distress and fatigue no headache, no visual changes no speech or swallowing issues regular rhythm no april lungs are clear no wheezes normal bowel sounds, no abdominal pain, no rebound or guarding right knee focal joint pain but no redness warmth or swelling no back pain, CVA tenderness or radicular pain no bruising, bleeding or rashes alert and oriented x3 no complaints of anxiety or depression Results & Data Results & Data ([facility]) Vital Signs (Past 12 Hours) Vital Signs Temp Pulse Resp BP Pulse Ox 07/17/21 00:21 56 L 147/72 H 95 07/16/21 23:00 97.3 F L 47 L 19 167/75 H 96 PG Care Time/CCT Total # of Minutes Spent Total Time Spent with Patient: Total time spent is greater than 50% in coordination of care (as documented) at patient's floor/unit and/or counseling patient: Coding Level of Care Code 08490 Subseq Hosp Care Lvl 2 Diagnoses Cervicalgia M54.2 Acute encephalopathy G93.40 Acute on chronic congestive heart failure I50.9 Effusion, right knee M25.461 Generalized weakness R53.1 Rotator cuff tear M75.100 Hyponatremia E87.1 CKD (chronic kidney disease), stage III N18.30 Moderate obstructive sleep apnea G47.33 Multiple pulmonary nodules R91.8 Coronary artery disease I25.10 History of aortic valve replacement Z95.2 History of mitral valve replacement Z95.2 History of atrial fibrillation Z86.79
[2021-07-17] MEDS: LIDOCAINE 5% 1 PATCH TD SCH (08:02)
[2021-07-17] MEDS: predniSONE 10 MG TABLET PO SCH (08:02)
[2021-07-17] MEDS: DICLOFENAC SOD 1% GEL 100 GM TUBE EXT SCH ×4 (08:02→20:42)
[2021-07-17] MEDS: ACETAMINOPHEN 500 MG TAB PO SCH ×2 (08:02→20:42)
[2021-07-17] MEDS: SOTALOL HCL 80 MG TAB PO SCH (09:41)
[2021-07-17] MEDS: WARFARIN SOD 6 MG TAB PO SCH (17:53)
[2021-07-17] MEDS: MELATONIN 3 MG TAB PO SCH (20:41)
[2021-07-17] MEDS: ATORVASTATIN 20 MG TAB PO SCH (20:42)
[2021-07-18 06:45] LABS: Hematocrit (blood only) 35.7 % (42-52); Mean Corpuscular Hemoglobin 31.3 pg (25-34); Mean Corpuscular Hgb Conc 33.6 g/dL (32-36); Mean Corpuscular Volume 93.2 fL (80-100); Mean Platelet Volume 9.9 fL (7.4-10.4); Platelet Count 315 K/uL (130-400); RDW Coefficient of Variation 13.8 % (11.5-14.5); Red Blood Count 3.83 M/uL (4.7-6.1); White Blood Count 7.86 K/uL (4.8-10.8)
[2021-07-18 07:23] LABS: INR 5.4 (0.9-1.1); Prothrombin Time 47.6 Seconds (9.0-12.0)
[2021-07-18 07:42] LABS: Creatinine Clr Calc Pharmacy 49.2 ml/min; Est GFR (African American) 59.7 ml/min; Est GFR (Non-African American) 51.5 ml/min; Potassium 4.1 mmol/L (3.5-5.1)
[2021-07-18] MEDS: DICLOFENAC SOD 1% GEL 100 GM TUBE EXT SCH ×4 (08:31→20:06)
[2021-07-18] MEDS: ACETAMINOPHEN 500 MG TAB PO SCH ×2 (08:31→20:05)
[2021-07-18] MEDS: SOTALOL HCL 80 MG TAB PO SCH (08:32)
[2021-07-18] MEDS: predniSONE 10 MG TABLET PO SCH (08:32)
[2021-07-18] MEDS: LIDOCAINE 5% 1 PATCH TD SCH (08:32)
[2021-07-18] MEDS ORDERED: FUROSEMIDE 20 MG TAB PO SCH (09:00)
--- NOTE | 2021-07-18 14:21 | Discharge Summary ---
Date of Service July 18, 2021 Admission HPI Per Admitting Provider 85 YOM with past medical history of: ALEXANDRO (no longer wears CPAP), Aortic and Mechanical mechanical valve replacement (on Coumadin), Bilateral rotator cuff tears, chronic shoulder pain, Intraocular lens transplant (right), afib(on sotalol), CAD, HLD, HTN, pulmonary nodules, BPH. Patient was brought to the EMD today via EMS, after being evaluated at his [facility] office for his eye injection, secondary to concern for increase in weakness, confusion, and ? rigors. The patient is accompanied by his to the EMD. The patient chronically deals with bilateral shoulder pain and has been on and off Tramadol over the years, but when he does take it, there is note that he get slower and some confusion, but today was worse. He recently had right shoulder injection on 07/07/20 and remains with pain in the shoulder and resumed his Tramadol. In the EMD the patient had routine labs performed CT scan of his head, CXR, and UA performed. He was noted to have increased WBC of 15, elevated NLR and elevated PCT of 0.11 but without evidence of infection noted at this time. He denies any cough, cold, sinusitis, pain to any other joints. No new medications have been changed or added. Patient will be admitted to continue to evaluate infectious possibilities, will obtain X-ray of shoulder although it is without local evidence of infection. Will hold his Tramadol at this time for his confusion and weakness. Follow his bio-markers. Obtain blood and urine culture, further evaluate right shoulder and search for possible source of infection COVID test on admission is: NEGATIVE Principal Diagnosis Acute on chronic diastolic heart failure Acute encephalopathy from tramadol resolved Pseudogout of right knee improved Discharge Exam The patient appeared well Vital signs as documented. Lungs are clear to auscultation and appear unlabored Cardiac exam, Rhythm is regular.. No murmurs, rubs or gallops. Abdominal exam reveals normal bowel sounds, soft non tender, no masses Extremities are nonedematous and both pedal pulses are normal. Neurologic exam is alert and oriented, no focal loss of strength or sensation Skin is without bruises or rashes Psychologically is without concerns for anxiety or depression. Discharge Data Allergies Allergy/AdvReac Type Severity Reaction Status Date / Time Penicillins Allergy Mild RASH Verified 07/12/21 15:54 celecoxib [From Celebrex] Allergy Unknown Verified 07/12/21 15:54 cyclobenzaprine Allergy Unknown Verified 07/12/21 15:54 [From Flexeril] simvastatin AdvReac Mild MUSCLE PAIN Verified 07/12/21 15:54 Consultations 07/12/21 20:39 Consult Orthopedic Surgery Routine Ordered Studies 07/12/21 13:57 CT head/brain wo con Stat 07/13/21 13:19 CT chest diagnostic wo con Routine 07/14/21 14:18 CT abd pelvis IV con only Stat Hospital Course (1) Acute on chronic congestive heart failure: acute/chronic diastolic CHF. lasix po daily Dr. 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 Echo in 04/2021 with EF 55-60%. Severely enlarged left atrium. Valve gradients of prosthetic valves wnl. (2) Cervicalgia: 2018 c-spine imaging with considerable DJD suspect such as current cause of pain Continue voltaren gel qid resolved (3) Acute encephalopathy: Resolved. Continue supportive care. avoid sedatives if possible. tramadol was d/c. Not discharged on opiates (4) Effusion, right knee: Pseudogout but with increased wbc in fluid treat for septic arthritis rocephin/vanco IV for possible septic joint. Appreciate ortho consult and assistance. s/p arthrocentesis. WBCs in synovial fluid >70,000. Crystal analysis c/w CPPD. Synovial fluid is negative for growth. Patient continues with elevated CRP complete additional 5 days of prednisone (5) Generalized weakness: reports 3-4 days of such prior to admission. We did exclude an infectious process However, urine cx neg, blood cx neg, synovial fluid culture neg, COVID neg x 2, RSV/flu test negative. CT chest findings - no pneumonia (RML findings are chronic). Chest x-ray today shows small bilateral pleural effusions, right larger than left. No evidence of consolidation or active infection concerned tramadol was large culprit for him so we will continue at time of discharge (6) Rotator cuff tear: Bilateral. s/p right shoulder injection [address] Rodriguez in the office. Pain generally controlled (7) Hyponatremia: 2nd volume overload, chronic lasix use, etc. Cont lasix for CHF and follow up with [facility] cardiology (8) CKD (chronic kidney disease), stage III: Return to baseline now stable (9) Moderate obstructive sleep apnea: No longer using CPAP for such. Follows with Dr Brett Narayanan. (10) Multiple pulmonary nodules: along with calcified lymph nodes. outpatient pulmonary notes suggest he had prior fungal infection in the past. does not have sarcoid. these nodules are chronic. Repeat chest x-ray with no acute findings consolidation or infection (11) Coronary artery disease: Continue Atorvastatin and BB, and Warfarin no evidence of ACS (12) History of aortic valve replacement: noted (13) History of mitral valve replacement: noted (14) History of atrial fibrillation: INR elevated on day of discharge therefore will be given 2.5 mg vitamin K and hold Coumadin till recheck on 07/20 sotalol to maintain NSR PT, OT jenny feels appropriate to go home with home health Total Time Total Time Spent Total Time Spent (In Minutes): It required greater than 30 minutes to prepare this patient for discharge Discharge Plan Discharge Items Patient Disposition: Home - Home Health Services Reason For Visit: WEAKNESS, LEUKEOCYTOSIS Discharge Diagnosis: acute on chronic diastolic heart failure right knee pseudogout confusion from tramadol chronic pulmonary nodules Activity: Per Instructions section Activity Comment: as per recommendation of home PT Non-emergency contact: Primary Care Provider Call non-emergency contact if: your symptoms worsen and you have a fever Follow-up/Referrals: Deric Tello MD [Primary Care Provider] - 07/28/21 10:15 am Diet: Low Sodium (2gm) Addtl Attending Provider Instructions: Please follow through with home health arrangements for your to get up with your knee Follow-up with cardiology for your congestive heart failure I believe [facility]. Your Coumadin level is elevated on the day of discharge please do not take any Coumadin on 07/18 or 07/19 and have your Coumadin rechecked on 07/20. At the time you are having your Coumadin recheck please contact your Coumadin clinic provider for further instructions once your INR result comes back on that day Pending Studies at Discharge: No Stand-Alone Forms: My FIGMD, Smoking Cessation Medications and DC Order Prescriptions: New prednisone 10 mg Tablet 10 mg PO QAM Qty: 5 RF: 0 acetaminophen [Tylenol Extra Strength] 500 mg Tablet 1,000 mg PO BID PRN (Reason: Pain) Qty: 30 RF: 0 lidocaine 5 % Adhesive Patch,Medicated 1 patch transdermal QAM Qty: 7 RF: 0 diclofenac sodium [Voltaren Arthritis Pain] 1 % Gel 4 g EXT QID Qty: 1 RF: 0 Continued furosemide 40 mg tablet 20 mg PO QAM RF: 0 atorvastatin 20 mg tablet 20 mg PO HS RF: 0 potassium chloride [Klor-Con] 20 mEq Packet 20 meq PO QAM RF: 0 Ocuvite Adult 50 Plus 250-5-1 mg Capsule 2 cap PO QAM RF: 0 sotalol 80 mg Tablet 40 mg PO QAM RF: 0 warfarin 2 mg tablet 4 - 6 mg PO UD RF: 0 Discontinued tramadol 50 mg tablet 50 mg PO Q6 PRN (Reason: Pain) RF: 0 Admission Data Admit Date/Time: 07/12/21 19:22 Attending Provider: Darío Fiore Admit Provider: Deb Guzmán Primary Care Provider: Deric Tello Other Providers: Eugene Rodriguez ; Kaylie Shields [facility] ; [facility] Coding Diagnoses Acute on chronic congestive heart failure I50.9 Cervicalgia M54.2 Acute encephalopathy G93.40 Effusion, right knee M25.461 Generalized weakness R53.1 Rotator cuff tear M75.100 Hyponatremia E87.1 CKD (chronic kidney disease), stage III N18.30 Moderate obstructive sleep apnea G47.33 Multiple pulmonary nodules R91.8 Coronary artery disease I25.10 History of aortic valve replacement Z95.2 History of mitral valve replacement Z95.2 History of atrial fibrillation Z86.79
[2021-07-18] MEDS ORDERED: PHYTONADIONE 5 MG TAB PO STA (14:25)
--- NOTE | 2021-07-18 14:41 | Hospitalist Progress Note ---
Date of Service July 18, 2021 Assessment & Plan (1) Acute on chronic congestive heart failure: Plan: acute/chronic diastolic CHF. lasix po daily Dr. Holder spoke with with Dr Toni Painter, [facility], his primary gas singer. Echo in 04/2021 with EF 55-60%. Severely enlarged left atrium. Valve gradients of prosthetic valves wnl. (2) Cervicalgia: Plan: 2018 c-spine imaging with considerable DJD suspect such as current cause of pain Continue voltaren gel qid resolved (3) Acute encephalopathy: Plan: Resolved. Continue supportive care. avoid sedatives if possible. tramadol was d/c. Not discharged on opiates (4) Effusion, right knee: Plan: Pseudogout but with increased wbc in fluid treat for septic arthritis rocephin/vanco IV for possible septic joint. Appreciate ortho consult and assistance. s/p arthrocentesis. WBCs in synovial fluid >70,000. Crystal analysis c/w CPPD. Synovial fluid is negative for growth. Patient continues with elevated CRP complete additional 5 days of prednisone (5) Generalized weakness: Plan: reports 3-4 days of such prior to admission. We did exclude an infectious process However, urine cx neg, blood cx neg, synovial fluid culture neg, COVID neg x 2, RSV/flu test negative. CT chest findings - no pneumonia (RML findings are chronic). Chest x-ray today shows small bilateral pleural effusions, right larger than left. No evidence of consolidation or active infection concerned tramadol was large culprit for him so we will continue at time of discharge (6) Rotator cuff tear: Plan: Bilateral. s/p right shoulder injection [address] Rodriguez in the office. Pain generally controlled (7) Hyponatremia: Plan: 2nd volume overload, chronic lasix use, etc. Cont lasix for CHF and follow up with [facility] cardiology (8) CKD (chronic kidney disease), stage III: Plan: Return to baseline now stable (9) Moderate obstructive sleep apnea: Plan: No longer using CPAP for such. Follows with Dr Brett Narayanan. (10) Multiple pulmonary nodules: Plan: along with calcified lymph nodes. outpatient pulmonary notes suggest he had prior fungal infection in the past. does not have sarcoid. these nodules are chronic. Repeat chest x-ray with no acute findings consolidation or infection (11) Coronary artery disease: Plan: Continue Atorvastatin and BB, and Warfarin no evidence of ACS (12) History of aortic valve replacement: Plan: noted (13) History of mitral valve replacement: Plan: noted (14) History of atrial fibrillation: Plan: INR elevated on day of discharge therefore will be given 2.5 mg vitamin K and hold Coumadin till recheck on 07/20 sotalol to maintain NSR Plan: PT, OT noaal feels appropriate to go home with home health Admission and Anticipated Discharge Date Admission Date: July 12, 2021 Subjective this pt states his knee is feeling much better and he is able to bear weight but is deconditioned pt wanted to go home and does not feel comfortable Review of Systems Review of Systems: Mild distress and fatigue no headache, no visual changes no speech or swallowing issues no chest pain, pressure or palpitations no shortness of breath, cough or wheezes no abdominal pain, nausea or vomiting, diarrhea or constipation no dysuria, hematuria or frequency still some right knee pain with no swelling or warmth no back pain, CVA tenderness or radicular pain no bruising, bleeding or rashes no focal signs of weakness or numbness or altered sensation no complaints of anxiety or depression Physical Exam Physical Exam: The patient appeared well Vital signs as documented. Lungs are clear to auscultation and appear unlabored Cardiac exam, Rhythm is regular.. No murmurs, rubs or gallops. Abdominal exam reveals normal bowel sounds, soft non tender, no masses Extremities are nonedematous and both pedal pulses are normal. Neurologic exam is alert and oriented, no focal loss of strength or sensation Skin is without bruises or rashes Psychologically is without concerns for anxiety or depression. Results & Data Results & Data ([facility]) Vital Signs (Past 12 Hours) Vital Signs Temp Pulse Resp BP BP Pulse Ox 07/18/21 14:25 97.2 F L 53 L 16 142/64 H 96 07/18/21 08:42 97.3 F L 63 16 183/79 H 98 PG Care Time/CCT Total # of Minutes Spent Total Time Spent with Patient: Total time spent is greater than 50% in coordination of care (as documented) at patient's floor/unit and/or counseling patient: Coding Level of Care Code 42911 Subseq Hosp Care Lvl 2 Diagnoses Acute on chronic congestive heart failure I50.9 Cervicalgia M54.2 Acute encephalopathy G93.40 Effusion, right knee M25.461 Generalized weakness R53.1 Rotator cuff tear M75.100 Hyponatremia E87.1 CKD (chronic kidney disease), stage III N18.30 Moderate obstructive sleep apnea G47.33 Multiple pulmonary nodules R91.8 Coronary artery disease I25.10 History of aortic valve replacement Z95.2 History of mitral valve replacement Z95.2 History of atrial fibrillation Z86.79
--- NOTE | 2021-07-18 17:10 | Progress Notes ---
DATE OF SERVICE: 07/18/2021. SUBJECTIVE: An 85-year-old gentleman admitted with several medical issues including confusion and fa ilure to thrive. He is doing much better. We aspirated his knee and it is just showing pseudogout. His shoulder is doing better also. Really not complaining of much pain in either one. The shoulder continues to not work real well functionally. PHYSICAL EXAMINATION: GENERAL: Shows a pleasant, elderly male. He is sitting up in his bedside chair, looks comfortable. EXTREMITIES: Examination of right shoulder reveals no obvious atrophy or swelling. He can elevate t o about 90 degrees and that is about it. Not much pain. Examination of the right knee reveals a fairly minimal effusion. Range of motion is 0-110. Good str aight leg raise. LABORATORY DATA: Culture results from the right knee joint fluid showed no growth. Does show pseudo gout on crystal analysis. ASSESSMENT: An 85-year-old gentleman admitted for medical issues with right knee effusion and right shoulder pain consistent with pseudogout and chronic rotator cuff tear. He seems to be doing much be tter now that he is on some prednisone. PLAN: At this point, he looks to be doing quite well. I do not think there is an infectious etiolog y. We are going to sign off for now as clinically he is doing well. Feel free to call us for reeval uation if needed. I can be reached at [phone]. There is no orthopedic restriction at all. Job ID: [id number]
[2021-07-18] MEDS: FUROSEMIDE 20 MG TAB PO SCH (17:37)
[2021-07-18] MEDS: MELATONIN 3 MG TAB PO SCH (20:05)
[2021-07-18] MEDS: ATORVASTATIN 20 MG TAB PO SCH (20:06)
[2021-07-19 08:07] LABS: INR 2.6 (0.9-1.1); Prothrombin Time 24.8 Seconds (9.0-12.0)
[2021-07-19] MEDS: predniSONE 10 MG TABLET PO SCH (08:18)
[2021-07-19] MEDS: LIDOCAINE 5% 1 PATCH TD SCH (08:18)
[2021-07-19] MEDS: SOTALOL HCL 80 MG TAB PO SCH (08:18)
[2021-07-19] MEDS: ACETAMINOPHEN 500 MG TAB PO SCH (08:18)
[2021-07-19] MEDS: FUROSEMIDE 20 MG TAB PO SCH (08:18)
[2021-07-19] MEDS: DICLOFENAC SOD 1% GEL 100 GM TUBE EXT SCH ×2 (08:19→13:07)
[2021-07-19 08:45] LABS: BUN Creatinine Ratio 24.1 (10-20); Creatinine Clr Calc Pharmacy 45.6 ml/min; Est GFR (African American) 54.5 ml/min
[2021-07-19] MEDS ORDERED: POTASSIUM CHLORIDE CRTAB 20 MEQ TABCR PO SCH (09:00)
--- NOTE | 2021-07-19 13:25 | Discharge Summary ---
Date of Service date of admission - July 12, 2021 date of discharge - July 19, 2021 Admission HPI Per Admitting Provider 85 YOM with past medical history of: ALEXANDRO (no longer wears CPAP), Aortic and Mechanical mechanical valve replacement (on Coumadin), Bilateral rotator cuff tears, chronic shoulder pain, Intraocular lens transplant (right), afib(on sotalol), CAD, HLD, HTN, pulmonary nodules, BPH. Patient was brought to the EMD today via EMS, after being evaluated at his buyer office for his eye injection, secondary to concern for increase in weakness, confusion, and ? rigors. The patient is accompanied by his to the EMD. The patient chronically deals with bilateral shoulder pain and has been on and off Tramadol over the years, but when he does take it, there is note that he get slower and some confusion, but today was worse. He recently had right shoulder injection on 07/07/20 and remains with pain in the shoulder and resumed his Tramadol. In the EMD the patient had routine labs performed CT scan of his head, CXR, and UA performed. He was noted to have increased WBC of 15, elevated NLR and elevated PCT of 0.11 but without evidence of infection noted at this time. He denies any cough, cold, sinusitis, pain to any other joints. No new medications have been changed or added. Patient will be admitted to continue to evaluate infectious possibilities, will obtain X-ray of shoulder although it is without local evidence of infection. Will hold his Tramadol at this time for his confusion and weakness. Follow his bio-markers. Obtain blood and urine culture, further evaluate right shoulder and search for possible source of infection COVID test on admission is: NEGATIVE Principal Diagnosis 1. encephalopathy - metabolic & toxic 2. right knee pseudogout 3. acute/chronic diastolic CHF 4. cervicalgia 5. right shoulder pain Discharge Exam gen - NAD, awake, alert neck - no JVD mouth - MMM heart - RRR, mechanical valve closure sound, s1 s2 lungs - CTA b/l abd - soft NT ND BS+ ext - no ankle edema, pulses 2+ b/l musculo - right knee with minimal effusion, no warmth, no tenderness with passive ROM psych - a/o x 3 Discharge Data Allergies Allergy/AdvReac Type Severity Reaction Status Date / Time Penicillins Allergy Mild RASH Verified 07/12/21 15:54 celecoxib [From Celebrex] Allergy Unknown Verified 07/12/21 15:54 cyclobenzaprine Allergy Unknown Verified 07/12/21 15:54 [From Flexeril] simvastatin AdvReac Mild MUSCLE PAIN Verified 07/12/21 15:54 Consultations [facility] Orthopedic Surgery PT, OT Procedures Performed Right knee arthrocentesis - Eugene Rodriguez MD Ordered Studies Chest X-Ray 07/12/21 12:59 XR chest 1V portable HISTORY: weakness COMPARISON: Chest 06/10/2017. FINDINGS: No pneumothorax. The cardiac silhouette remains mildly enlarged. There are poststernotomy changes and a cardiac valve prosthesis again noted. Calcifications within the aortic knob. Bilateral perihilar interstitial/vascular thickening persists and favors developing congestive change. No new focal lung consolidations identified. No significant pleural fusions. IMPRESSION: 1. Cardiomegaly with developing congestive change. 2. No new focal lung consolidations. ACT 112: Negative or not required by law. Electronically signed by: Andrea Sahu M.D. 07/12/2021 1:[address] 07/12/21 13:[address] DOSE: 537.48 mGy.cm HISTORY: Generalized weakness TECHNIQUE: Multiaxial CT images of the head were performed without the use of intravenous contrast. Automated exposure control was utilized for this study. A dose lowering technique was utilized adhering to the principles of ALARA. Comparison: Head CT 06/10/2017. Findings: The paranasal sinuses and mastoid air cells are clear. The calvarium and skull base are intact. There is no mass, hematoma, midline shift, acute infarct. Atrophy and microvascular ischemic changes are again noted. Stable mild ventriculomegaly. Impression: No significant change compared to the prior study. No acute intracranial abnormality. ACT 112: Negative or not required by law. Electronically signed by: Andrea Sahu M.D. 07/12/2021 2:50 PM Shoulder X-Ray 07/12/21 19:09 RIGHT SHOULDER 3 VIEWS CLINICAL HISTORY: Right shoulder pain. FINDINGS: 3 views of the right shoulder are compared to study dated 11/05/2018. The skeletal structures are osteopenic. There is no radiographic evidence of fracture or dislocation. A chronic Hill-Sachs lesion is noted in the humeral head with associated bony sclerosis. Mild superior subluxation of the humeral head suggests chronic rotator cuff injury. Mild productive degenerative change is noted at the acromioclavicular joint. Soft tissue edema is seen overlying the shoulder. Midline sternotomy wires are partially imaged. The heart is enlarged. Question pulmonary vascular congestion. IMPRESSION: 1. Soft tissue swelling with no acute bony abnormality identified. 2. Osteopenia with chronic/degenerative changes as above. 3. Cardiomegaly and suspect pulmonary vascular congestion. Electronically signed by: Jasson Vance M.D. 07/12/2021 8:[address] 07/13/21 13:19 CT chest diagnostic wo con CT DOSE: 971.59 mGy.cm HISTORY: dyspnea, CHF? pneumonia? other? TECHNIQUE: Multiaxial CT images of the chest were performed without contrast. A dose lowering technique was utilized adhering to the principles of ALARA. COMPARISON: Chest CT 07/31/2011. FINDINGS: There are poststernotomy changes. Old postoperative changes also noted within the left lateral chest wall. No acute fractures within the visualized os seous structures. Limited views of the upper abdomen demonstrate normal liver, spleen, and adrenal glands. Normal esophagus. The thyroid gland appears unremarkable. Normal caliber esophagus. The heart is mildly enlarged. Calcified plaque within the normal caliber thoracic aorta. Aortic valve prosthesis is again noted. There are small bilateral pleural effusions most pronounced on the right. Calcified enlarged mediastinal and hilar lymph nodes are not significantly changed. This is consistent with prior granulomatous disease. No pneumothorax. Mild narrowing of the central bronchi due to the bilateral hilar lymphadenopathy. This is also similar to the prior study. There is partial opacification within the lateral segmental bronchus of the right middle lobe with associated consolidation within the lateral segment of the right middle lobe. This favors atelectasis. A pneumonia could also a similar appearance. There are few bibasilar linear densities suggesting subsegmental atelectasis. Mild emphysema. Mild interlobular septal thickening consistent with mild pulmonary edema. Scattered partially calcified pulmonary nodules remain stable and are therefore considered to be benign. IMPRESSION: 1. Cardiomegaly, small bilateral pleural effusions, and mild interlobular septal thickening consistent with mild pulmonary edema. 2. Partial opacification of the lateral segmental bronchus of the right middle lobe with consolidation/collapse involving the lateral segment of the right middle lobe. This is likely due to compression of the right middle lobe bronchus from the chronic granulomatous disease within the right hilum. A focal pneumonia could also have a similar appearance in the appropriate clinical setting. 4. Calcified lymphadenopathy within the mediastinum and hilum with a few partially calcified pulmonary nodules remain unchanged. This consistent with prior granulomatous disease/sarcoidosis. ACT 112: Negative or not required by law. Electronically signed by: Andrea Sahu M.D. 07/13/2021 3:56 PM Knee X-Ray 07/13/21 13:19 XR knee RT 1 or 2V routine HISTORY: 85 years-old Male ?CPPD R knee chronic right knee pain COMPARISON: Right femur radiographs 06/10/2017 TECHNIQUE: 2 views of the right knee FINDINGS: Chondrocalcinosis of the medial and lateral compartments. Mild patellofemoral osteoarthritis with minimal medial and lateral compartment osteoarthritis. Moderate size joint effusion with ill-defined suprapatellar calcifications. No osseous erosions. Arterial calcifications also noted. IMPRESSION: 1. Moderate sized joint effusion without acute fracture or dislocation. 2. Osteoarthritis of the knee, mild within the patellofemoral joint 3. Chondrocalcinosis. ACT 112: Negative or not required by law. The above report was generated using voice recognition software. It may contain grammatical, syntax or spelling errors. Electronically signed by: Ethan Pinzon M.D. 07/13/2021 3:35 PM Abdomen/Pelvis CT 07/14/21 14:18 CT OF THE ABDOMEN AND PELVIS WITH CONTRAST CLINICAL HISTORY: Severe left flank pain. Abdominal distention. COMPARISON STUDY: CT of the abdomen and pelvis June 12, 2016. TECHNIQUE: Following IV administration of 91 mL of Optiray, axial images of the abdomen and pelvis were obtained from the lung bases to the proximal femurs. Candice ges were reviewed in the axial, sagittal, and coronal planes. IV contrast was administered without complication. Automated exposure control was utilized for the study. A dose lowering technique was utilized adhering to the principles of ALARA. CT DOSE: 1102.03 mGy.cm FINDINGS: Imaged portions of the lower chest partially visualize moderate right and small left pleural effusions. Cardiomegaly is noted. There is mild interlobular septal thickening. Several small nodules within the lower lungs are unchanged since CT of June 12, 2016. No pneumatosis, free air or portal venous gas is present. Several right renal cysts measure up to 9.2 cm. There is no hydronephrosis. There are no urinary calculi. The liver, spleen, adrenal glands and pancreas are unremarkable. No biliary or pancreatic ductal dilatation is present. There is no peripancreatic or pericholecystic infiltration. Mildly enlarged upper abdominal lymph nodes are unchanged. An enlarged right posterior mediastinal lymph node is unchanged. There is colonic diverticulosis with evidence for acute diverticulitis. There is no ascites. No acute fracture or suspicious lesion is identified within the visualized skeletal structures. IMPRESSION: 1. No acute process within the abdomen or pelvis. 2. Partially visualized moderate right and small left pleural effusions. 3. Colonic diverticulosis. No evidence for acute diverticulitis. 4. No bowel obstruction. 5. No urinary calculi or hydronephrosis. ACT 112: Negative or not required by law. Electronically signed by: Leo Pastrana M.D. 07/14/2021 4:28 PM Chest X-Ray 07/16/21 09:25 XR chest 2V PA/lateral CLINICAL HISTORY: Elevated CRP COMPARISON STUDY: Chest radiograph July 12, 2021. Chest CT July 13, 2021. FINDINGS: No pneumothorax is present. There are small bilateral pleural effusions, right larger than left. Cardiomegaly is noted. Prosthetic mitral valve, mediastinal surgical clips and median sternotomy wires are present.] Opacities unchanged. This favors atelectasis and is likely chronic. There is pulmonary vascular congestion without overt pulmonary edema. Appearance of the chest is unchanged. IMPRESSION: 1. Stable cardiomegaly and pulmonary vascular congestion. 2. Small bilateral pleural effusions, right larger than left. ACT 112: Negative or not required by law. Electronically signed by: Leo Pastrana M.D. 07/16/2021 10:05 AM Hospital Course (1) Pseudogout of right knee: s/p arthrocentesis by Dr Rodriguez. CPPD crystals seen; cell counts c/w inflammatory arthropathy. gram stain/culture negative. thus, no septic arthritis. blood cx's also negative. NSAIDs were avoided due to coumadin use. thus, to treat the pseudogout flare, prednisone was initiated. started at 20mg x 1, then 10mg daily thereafter. plan ~7-10 days of prednisone low-dose. (2) Acute encephalopathy: exact etiology uncertain but it does not appear to be metabolic from an infectious cause. urine/blood/synovial fluid cx's negative. COVID x 2 negative. RSV/influenza PCR negative. RML findings on CT chest appear chronic; no symptoms to suggest pneumonia. altered mental status likely metabolic + toxic in etiology. was taking tramadol at home - this could have caused confusion. steroid from steroid injection in R shoulder theoretically could have contributed. I have seen rarely pain itself cause confusion directly. Mild hyponatremia could have contributed metabolically. either way his mental status improved/returned to normal with supportive care. 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 needed ~2 days of IV diuresis. Dr Toni Painter, [facility], is his primary religious education coordinator. Echo in 04/2021 with EF 55-60%. Severely enlarged left atrium. Valve gradients of prosthetic valves wnl. (6) Effusion, right knee: see #1 above (7) Generalized weakness: reports 3-4 days of such prior to admission. It does not appear he had any infectious cause of his weakness. CT chest findings - no pneumonia (RML findings are chronic). I do not think he has PMR although I cannot exclude it fully. Inflammatory marker elevation was likely from the pseudogout flare. Peak CRP level was 29. CRP improved to 5 on day of discharge. This was with low-dose prednisone. Once pseudogout flare is resolved and he is off the short-course prednisone will need to follow his musculoskeletal complaints over the next few weeks. (8) Leukocytosis: Infectious etiologies were ruled out. Blood/urine/synvial fluid cultures were all negative. COVID testing was negative. RSV/flu testing was negative. CT chest / abdomen / pelvis did NOT show infectious sources. Inflammatory arthropathy can cause leukocytosis (right knee pseudogout). WBC count did normalize prior to discharge. (9) Rotator cuff tear: Bilateral. s/p right shoulder injection by Dr Rodriguez in the office in the week prior to admission. (10) Hyponatremia: 2nd volume overload, chronic lasix use, etc. Lowest Na level = 131. Na level at discharge = 139. (11) CKD (chronic kidney disease), stage III: stable creatinine during the stay. (12) Moderate obstructive sleep apnea: No longer using CPAP for such. Follows with Dr Brett Narayanan. (13) Multiple pulmonary nodules: along with calcified lymph nodes. outpatient pulmonary notes suggest he had prior fungal infection in the past / granulomatous disease. does not have sarcoid. these nodules are chronic. RML findings on CT are chronic. (14) Coronary artery disease: Continue Atorvastatin and BB, and Warfarin no evidence of ACS (15) History of aortic valve replacement: follows with Dr Toni Painter [facility] INR goal 2.5 to 3.5. INRs are typically checked via the [facility]. (16) History of mitral valve replacement: follows with Dr Toni Painter [facility] (17) History of atrial fibrillation: noted cont sotalol to maintain NSR cont coumadin INR was 2.6 on the day of discharge seen by PT/OT Total Time Total Time Spent Total Time Spent (In Minutes): 45 Discharge Plan Discharge Items Patient Disposition: Transfer Correction Fac Reason For Visit: WEAKNESS Discharge Diagnosis: 1. acute on chronic diastolic heart failure 2. right knee pseudogout 3. confusion from tramadol 4. chronic pulmonary nodules - likely from prior granulomatous disease (fungal infection, etc) 5. chronic coumadin use for history of mechanical aortic valve 6. recent right shoulder injection for rotator cuff syndrome by Dr Eugene Rodriguez Activity: Resume your previous activity Non-emergency contact: Primary Care Provider and Specialist Call non-emergency contact if: you have any medication questions, your symptoms worsen and you have a fever Follow-up/Referrals: Deric Tello MD [Primary Care Provider] - 07/28/21 10:15 am Eugene Rodriguez MD [Physician] - (2 weeks - for right shoulder, recent right knee pseudogout flare) Diet: Low Sodium (2gm) Addtl Attending Provider Instructions: Mr Zhou, You were hospitalized for the problems listed above in "discharge diagnoses." Fortunately we did not find any infections during your stay such as pneumonia, urinary infection, bloodstream infection, or infection of your right knee. COVID testing x 3 were negative. Flu testing was negative. Your right knee drainage procedure showed evidence of pseudogout. Your right knee improved quickly with use of prednisone. You did have some mild fluid retention in your lungs from your congestive heart failure. This improved with IV lasix. Your last echocardiogram was performed by Dr Painter at his office in 04/2021. Your INR on day of discharge was 2.6. Please resume your normal coumadin regimen -- * 4mg on Sunday and Sunday * 6mg on Sunday, Sunday, Sunday, , and Sunday Discharge recommendations - 1. prednisone 10mg once daily every morning x 5 additional days then stop. 2. daily INR x 3-4 days to ensure stability; INR Goal 2.5 to 3.5. 3. BMP in 3 days to ensure stability of electrolytes/creatinine. 4. f/u with Dr Rodriguez in about 2 weeks to check the status of your right shoulder, right knee, etc. 5. NO TRAMADOL at any time. Return to [facility] if - * you have fevers over 100 degrees * you have worsening pain or swelling in any joint * you have confusion * you have shortness of breath or chest pain * any other concerns It was our pleasure to care for you at [facility]! -Dr Holder Pending Studies at Discharge: No Stand-Alone Forms: My [facility], Smoking Cessation Skilled Items Patient informed of condition?: Yes DNR: Yes Discharge Level of Care: Skilled Communicable Disease: No Discharge Prognosis: Stable Lines: None Urinary Catheter: No Medications and DC Order Prescriptions: New prednisone 10 mg Tablet 10 mg PO QAM Qty: 5 RF: 0 acetaminophen [Tylenol Extra Strength] 500 mg Tablet 1,000 mg PO BID PRN (Reason: Pain) Qty: 30 RF: 0 lidocaine 5 % Adhesive Patch,Medicated 1 patch transdermal QAM Qty: 7 RF: 0 diclofenac sodium [Voltaren Arthritis Pain] 1 % Gel 4 g EXT QID Qty: 1 RF: 0 Continued furosemide 40 mg tablet 20 mg PO QAM RF: 0 atorvastatin 20 mg tablet 20 mg PO HS RF: 0 potassium chloride [Klor-Con] 20 mEq Packet 20 meq PO QAM RF: 0 Ocuvite Adult 50 Plus 250-5-1 mg Capsule 2 cap PO QAM RF: 0 sotalol 80 mg Tablet 40 mg PO QAM RF: 0 warfarin 2 mg tablet 4 - 6 mg PO UD RF: 0 Discontinued tramadol 50 mg tablet 50 mg PO Q6 PRN (Reason: Pain) RF: 0 Discharge Orders: Discharge Order (Routine); Ordered 07/19/21 Ordered By: Sathya Holder Admission Data Admit Date/Time: 07/12/21 19:22 Attending Provider: Sathya Holder Admit Provider: Deb Guzmán Primary Care Provider: Deric Tello Other Providers: Eugene Rodriguez ; Kaylie Shields at [place] ; [facility] Other Interventions: Discharge Summary Assessment (RN) Last Done: 07/19/21 13:40 Coding Level of Care Code D/C DAY MANAGEMENT >30 MINS Diagnoses Pseudogout of right knee M11.261 Acute encephalopathy G93.40 Left flank pain R10.9 Cervicalgia M54.2 Acute on chronic congestive heart failure I50.9 Effusion, right knee M25.461 Generalized weakness R53.1 Leukocytosis D72.829 Rotator cuff tear M75.100 Hyponatremia E87.1 CKD (chronic kidney disease), stage III N18.30 Moderate obstructive sleep apnea G47.33 Multiple pulmonary nodules R91.8 Coronary artery disease I25.10 History of aortic valve replacement Z95.2 History of mitral valve replacement Z95.2 History of atrial fibrillation Z86.79
== END 2021-07-19 15:43 | DRG 553 ==
LOC: ED 12:11 → EDINP 19:22 → SUATTDRO 19:22 → 3N 20:40
DX: E78.5 Hyperlipidemia, unspecified; Z88.0 Allergy status to penicillin; N18.30 Chronic kidney disease, stage 3 unspecified; R91.8 Other nonspecific abnormal finding of lung field; I50.33 Acute on chronic diastolic (congestive) heart failure; Z79.01 Long term (current) use of anticoagulants; G47.33 Obstructive sleep apnea (adult) (pediatric); G93.40 Encephalopathy, unspecified; Z79.899 Other long term (current) drug therapy; T40.2X5A Adverse effect of other opioids, initial encounter; Z88.1 Allergy status to other antibiotic agents; E87.1 Hypo-osmolality and hyponatremia; Z95.2 Presence of prosthetic heart valve; I48.91 Unspecified atrial fibrillation; M11.261 Other chondrocalcinosis, right knee; I25.10 Atherosclerotic heart disease of native coronary artery without angina pectoris; M75.101 Unspecified rotator cuff tear or rupture of right shoulder, not specified as traumatic; M50.30 Other cervical disc degeneration, unspecified cervical region

== ENCOUNTER 2021-09-12 09:12 | Inpatient (IN) ==
[2021-09-12] MEDS ORDERED: SODIUM CHLORIDE 0.9% 500 ML IV STA (09:17)
--- NOTE | 2021-09-12 09:24 | Emergency Department Note ---
Impression & Plan COVID-19 virus infection, Weakness, Elevated troponin I level, ACEVEDO (dyspnea on exertion), Fever ED Provider Note NAME: ALESSANDRO MONTERO AGE: 86 SEX: M : 1935 ARRIVES VIA: Ambulance INFORMANT: Patient, EMS ED PROVIDER(S): Stephen Joshua DO CHIEF COMPLAINT: Shortness of breath HPI: The patient is an 86-year-old male who presented to the emergency department for an evaluation of shortness of breath. The patient states that he has had fever and cough over the course of the last 3 days. The patient has a history of valve replacement and takes Coumadin. He denies having any lower extremity swelling or chest pain. He states he had a temperature as high as 101 degrees. He has had no nausea or vomiting. He describes sputum production but no hemoptysis. He states he is up-to-date with his vaccinations including his COVID shot. He was tested for COVID in the past and was negative. The patient has not been seen by his primary care physician for the symptoms. He denies having any recent trauma. ROS: See above HPI for pertinent positives & negatives. A total of 10 systems reviewed and were otherwise negative. PAST MEDICAL HISTORY: See Below PAST SURGICAL HISTORY: See Below FAMILY HISTORY: See Below SOCIAL HISTORY: See Below HOME MEDICATIONS: See Below ALLERGIES: See Below VITALS: See Below PHYSICAL EXAMINATION: GENERAL: Patient is awake alert in no acute distress patient is resting comfortably and showing no signs of anxiety EYES: The conjunctivae are clear. The pupils are round and reactive. EARS, NOSE, MOUTH AND THROAT: The nose is without any evidence of any deformity. NECK: The neck is nontender and supple. RESPIRATORY: Diminished breath sounds are noted at the right base. There is mild conversational tachypnea noted. CARDIOVASCULAR: Regular heart sounds are noted auscultation. There is a metallic click appreciated. GASTROINTESTINAL: The abdomen is soft. Abdomen is nontender. MUSCULOSKELETAL/EXTREMITIES: There is no evidence of gross deformity full range of motion is noted in the hips and shoulders. SKIN: There is no obvious evidence of any rash. There are no petechiae, pallor or cyanosis noted. NEUROLOGIC: Patient is awake alert and oriented x3 MEDICAL DECISION MAKING: The patient is an 86-year-old male who presented to the emergency department for an evaluation of difficulty breathing. He reported a fever. Chest x-ray did not show any acute disease but he was found to have an elevated troponin and a positive troponin. The patient had a negative age-adjusted D-dimer. I discussed the patient's laboratory and radiographic studies with him. Ultimately I also discussed this case with the on-call [facility] hospitalist. They have agreed to evaluate the patient in the emergency depar tme for further management and disposition. The patient's significant other was very concerned about the degree of weakness the patient was experiencing. She did not feel comfortable managing his condition at home. Triage Nursing notes reviewed. Prior medical records reviewed Vital Signs: reviewed and remarkable for elevated blood pressure, bradycardia and tachypnea. Differential diagnosis: Viral syndrome, otitis, pharyngitis, pneumonia, influenza, meningitis, urinary tract infection, sepsis, bacteremia, as well as other pathologies. ER treatment provided: See below Diagnostics interpreted by me: ECG: EKG was obtained in the emergency department. My interpretation is sinus bradycardia 53 bpm. LVH with suggested by voltage criteria. Nonspecific ST segment abnormalities were noted. This was compared to a tracing from July 12, 2021. No changes were noted. Cardiac Monitoring: An order was placed for continuous cardiac monitoring. The monitor shows a rate of 59 bpm with sinus rhythm. Laboratory studies: As stated above and show below. Imaging studies: See below Consultation(s): I discussed this case with Helen who is on-call for the [facility] hospitalist group. Past Med/Surg History Medical History History of atrial fibrillation History of cardioversion Hx of cardiac murmur Hypertension Macular degeneration GETS SHOTS IN EYES FOR TREATMENT Q8-10 WEEKS Restless leg syndrome Ventral hernia Surgical History History of aortic valve replacement AT AGE 58 ([facility]ICE T[facility]LOR) History of colonoscopy History of inguinal hernia repair LEFT X 2 History of left cataract surgery 11/19/2019. propofol given. 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 Feels Safe at Home: Yes Assistive Devices: Glasses and Walker Allergies Allergies Allergy/AdvReac Type Severity Reaction Status Date / Time Penicillins Allergy Mild RASH Verified 07/12/21 15:54 celecoxib [From Celebrex] Allergy Unknown Verified 07/12/21 15:54 cyclobenzaprine Allergy Unknown Verified 07/12/21 15:54 [From Flexeril] simvastatin AdvReac Mild MUSCLE PAIN Verified 07/12/21 15:54 Home Meds Home Medications Medication Instructions Recorded Confirmed atorvastatin 20 mg tablet 20 mg PO HS 03/04/19 09/12/21 furosemide 40 mg tablet 20 mg PO QAM 03/04/19 09/12/21 potassium chloride 20 mEq oral 20 meq PO QAM 11/12/19 09/12/21 packet (Klor-Con) sotalol 80 mg tablet 40 mg PO QAM 11/12/19 09/12/21 vit C,E,zinc,copper-apdys9t 250 2 cap PO QAM 11/12/19 09/12/21 mg-lutein 5 mg-zeaxanthin 1 mg capsule (Ocuvite Adult 50 Plus) warfarin 2 mg tablet 4 - 6 mg PO UD 07/12/21 09/12/21 Previous Rx's Medication Instructions Recorded acetaminophen 500 mg tablet 1,000 mg PO BID PRN #30 tab 07/18/21 (Tylenol Extra Strength) diclofenac sodium 1 % topical gel 4 g EXT QID #1 tube 07/18/21 (Voltaren Arthritis Pain) lidocaine 5 % topical patch 1 patch TRANSDERMAL QAM #7 ea 07/18/21 Results & Data (ED) Vital Signs Vital Signs - 24 hr 09/12/21 09:15 09/12/21 09:30 09/12/21 10:00 Temperature 36.9 C Temperature Source Oral Pulse Rate 100 H 53 L 66 Pulse Rate from SpO2 Sensor Respiratory Rate 18 21 17 Respiratory Effort / Characteristics Non-Labored Respiratory Depth Normal Respiratory Pattern Regular Blood Pressure 135/93 104/60 113/54 L Blood Pressure Mean 107 74 73 Pulse Oximetry 95 96 94 Oxygen Delivery Method Room Air Room Air Room Air Sepsis Recent Fever Within 48 Hours Yes Sepsis New/Unexplained Change in Mental Status No Sepsis Action Taken by Nursing No Action Required 09/12/21 10:30 09/12/21 11:00 09/12/21 11:30 Temperature Temperature Source Pulse Rate 49 L 50 L 50 L Pulse Rate from SpO2 Sensor 51 L 51 L 46 L Respiratory Rate 23 21 19 Respiratory Effort / Characteristics Respiratory Depth Respiratory Pattern Blood Pressure 144/69 H 118/63 143/65 H Blood Pressure Mean 94 81 91 Pulse Oximetry 97 95 95 Oxygen Delivery Method Room Air Room Air Sepsis Recent Fever Within 48 Hours Sepsis New/Unexplained Change in Mental Status Sepsis Action Taken by Nursing 09/12/21 12:00 09/12/21 12:30 09/12/21 13:00 Temperature Temperature Source Pulse Rate 59 L 56 L 61 Pulse Rate from SpO2 Sensor 58 L 57 L 57 L Respiratory Rate 25 H 22 22 Respiratory Effort / Characteristics Respiratory Depth Respiratory Pattern Blood Pressure 149/70 H 138/69 115/60 Blood Pressure Mean 96 92 78 Pulse Oximetry 94 93 94 Oxygen Delivery Method Room Air Room Air Room Air Sepsis Recent Fever Within 48 Hours Sepsis New/Unexplained Change in Mental Status Sepsis Action Taken by Nursing 09/12/21 13:30 09/12/21 14:00 Temperature Temperature Source Pulse Rate 53 L 59 L Pulse Rate from SpO2 Sensor 53 L 60 Respiratory Rate 26 H 27 H Respiratory Effort / Characteristics Respiratory Depth Respiratory Pattern Blood Pressure 125/59 L 143/68 H Blood Pressure Mean 81 93 Pulse Oximetry 94 94 Oxygen Delivery Method Room Air Room Air Sepsis Recent Fever Within 48 Hours Sepsis New/Unexplained Change in Mental Status Sepsis Action Taken by Custodial Medications Current Medication List: was personally reviewed by me Laboratory Data Attestation: I reviewed the patient's lab results. Result diagrams: 09/12/21 09:23 09/12/21 09:23 Lab Results 09/12/21 09/12/21 09/12/21 Range/Units 09:23 09:23 09:23 WBC 6.75 (4.8-10.8) K/uL RBC 4.23 L (4.7-6.1) M/uL Hgb 13.3 L (14.0-18.0) g/dL Hct 39.7 L (42-52) % MCV 93.9 (80-100) fL MCH 31.4 (25-34) pg MCHC 33.5 (32-36) g/dL RDW Std Deviation 49.9 H (36.4-46.3) fL RDW Coeff of Cresencio 14.7 H (11.5-14.5) % Plt Count 216 (130-400) K/uL MPV 10.5 H (7.4-10.4) fL Immature Gran % (Auto) 0.1 % Neut % (Auto) 44.8 % Lymph % (Auto) 23.6 % [place] % (Auto) 31.0 % Eos % (Auto) 0.4 % Baso % (Auto) 0.1 % Neut # (Auto) 3.02 (1.4-6.5) K/uL Lymph # (Auto) 1.59 (1.2-3.4) K/uL [place] # (Auto) 2.09 H (0.11-0.59) K/uL Eos # (Auto) 0.03 (0-0.5) K/uL Baso # (Auto) 0.01 (0-0.2) K/uL Immature Gran # (Auto) 0.01 (0.00-0.02) K/uL ESR (0-20) mm/hr PT 22.0 H (9.0-12.0) Seconds INR 2.2 H (0.9-1.1) APTT 41.3 H (21.0-31.0) Seconds PTT Ratio 1.5 D-Dimer (0-500) ug/L FEU Sodium 134 L (136-145) mmol/L Potassium 3.8 (3.5-5.1) mmol/L Chloride 100 (98-107) mmol/L Carbon Dioxide 28 (21-32) mmol/L Anion Gap 6 (3-11) BUN 31 H (6-23) mg/dl Creatinine 1.49 H (0.6-1.4) mg/dl Est Cr Clr Drug Dosing 42.6 ml/min Est GFR ( Amer) 48.9 ml/min Est GFR (Non-Af Amer) 42.2 ml/min BUN/Creatinine Ratio 20.8 H (10-20) Glucose 94 (70-99(Fasting)) mg/dl Calcium 8.8 (8.5-10.1) mg/dl Total Bilirubin 0.3 (0.2-1.0) mg/dl AST 27 (13-39) U/L ALT 19 (7-52) U/L Alkaline Phosphatase 61 (34-104) U/L Troponin I High Sens 61.9 H* (0-20) pg/ml C-Reactive Protein 2.35 H (0-0.5) mg/dl Total Protein 7.4 (6.0-8.3) gm/dl Albumin 3.7 (3.4-5.0) gm/dl Globulin 3.7 (2.5-4.0) gm/dl Albumin/Globulin Ratio 1.0 (0.9-2) Lipase 67 (11-82) U/L Procalcitonin (0-0.5) ng/ml Urine Color Urine Appearance (Clear) Urine pH (4.5-7.5) Ur Specific Brandon (1.000-1.030) Urine Protein (Negative) Urine Glucose (UA) (Negative) Urine Ketones (Negative) Urine Blood (Negative) Urine Nitrite (Negative) Urine Bilirubin (Negative) Urine Urobilinogen (Negative) Ur Leukocyte Esterase (Negative) Urine WBC (Auto) (0-5) /hpf Urine RBC (Auto) (0-4) /hpf U Hyaline Cast (Auto) (0-5) /lpf U Epithel Cells (Auto) (0-5) /lpf Urine Bacteria (Auto) (Negative) SARS-CoV-2 (PCR) (Negative) Influenza Type A (PCR) (Neg) Influenza Type B (PCR) (Neg) RSV (RT-PCR) (Neg) 09/12/21 09/12/21 09/12/21 Range/Units 09:23 09:23 09:23 WBC (4.8-10.8) K/uL RBC (4.7-6.1) M/uL Hgb (14.0-18.0) g/dL Hct (42-52) % MCV (80-100) fL MCH (25-34) pg MCHC (32-36) g/dL RDW Std Deviation (36.4-46.3) fL RDW Coeff of Cresencio (11.5-14.5) % Plt Count (130-400) K/uL MPV (7.4-10.4) fL Immature Gran % (Auto) % Neut % (Auto) % Lymph % (Auto) % [place] % (Auto) % Eos % (Auto) % Baso % (Auto) % Neut # (Auto) (1.4-6.5) K/uL Lymph # (Auto) (1.2-3.4) K/uL [place] # (Auto) (0.11-0.59) K/uL Eos # (Auto) (0-0.5) K/uL Baso # (Auto) (0-0.2) K/uL Immature Gran # (Auto) (0.00-0.02) K/uL ESR 43 H (0-20) mm/hr PT (9.0-12.0) Seconds INR (0.9-1.1) APTT (21.0-31.0) Seconds PTT Ratio D-Dimer 730 H* (0-500) ug/L FEU Sodium (136-145) mmol/L Potassium (3.5-5.1) mmol/L Chloride (98-107) mmol/L Carbon Dioxide (21-32) mmol/L Anion Gap (3-11) BUN (6-23) mg/dl Creatinine (0.6-1.4) mg/dl Est Cr Clr Drug Dosing ml/min Est GFR ( Amer) ml/min Est GFR (Non-Af Amer) ml/min BUN/Creatinine Ratio (10-20) Glucose (70-99(Fasting)) mg/dl Calcium (8.5-10.1) mg/dl Total Bilirubin (0.2-1.0) mg/dl AST (13-39) U/L ALT (7-52) U/L Alkaline Phosphatase (34-104) U/L Troponin I High Sens (0-20) pg/ml C-Reactive Protein (0-0.5) mg/dl Total Protein (6.0-8.3) gm/dl Albumin (3.4-5.0) gm/dl Globulin (2.5-4.0) gm/dl Albumin/Globulin Ratio (0.9-2) Lipase (11-82) U/L Procalcitonin 0.07 (0-0.5) ng/ml Urine Color Urine Appearance (Clear) Urine pH (4.5-7.5) Ur Specific Brandon (1.000-1.030) Urine Protein (Negative) Urine Glucose (UA) (Negative) Urine Ketones (Negative) Urine Blood (Negative) Urine Nitrite (Negative) Urine Bilirubin (Negative) Urine Urobilinogen (Negative) Ur Leukocyte Esterase (Negative) Urine WBC (Auto) (0-5) /hpf Urine RBC (Auto) (0-4) /hpf U Hyaline Cast (Auto) (0-5) /lpf U Epithel Cells (Auto) (0-5) /lpf Urine Bacteria (Auto) (Negative) SARS-CoV-2 (PCR) (Negative) Influenza Type A (PCR) (Neg) Influenza Type B (PCR) (Neg) RSV (RT-PCR) (Neg) 09/12/21 09/12/21 09/12/21 Range/Units 09:39 10:00 11:30 WBC (4.8-10.8) K/uL RBC (4.7-6.1) M/uL Hgb (14.0-18.0) g/dL Hct (42-52) % MCV (80-100) fL MCH (25-34) pg MCHC (32-36) g/dL RDW Std Deviation (36.4-46.3) fL RDW Coeff of Cresencio (11.5-14.5) % Plt Count (130-400) K/uL MPV (7.4-10.4) fL Immature Gran % (Auto) % Neut % (Auto) % Lymph % (Auto) % [place] % (Auto) % Eos % (Auto) % Baso % (Auto) % Neut # (Auto) (1.4-6.5) K/uL Lymph # (Auto) (1.2-3.4) K/uL [place] # (Auto) (0.11-0.59) K/uL Eos # (Auto) (0-0.5) K/uL Baso # (Auto) (0-0.2) K/uL Immature Gran # (Auto) (0.00-0.02) K/uL ESR (0-20) mm/hr PT (9.0-12.0) Seconds INR (0.9-1.1) APTT (21.0-31.0) Seconds PTT Ratio D-Dimer (0-500) ug/L FEU Sodium (136-145) mmol/L Potassium (3.5-5.1) mmol/L Chloride (98-107) mmol/L Carbon Dioxide (21-32) mmol/L Anion Gap (3-11) BUN (6-23) mg/dl Creatinine (0.6-1.4) mg/dl Est Cr Clr Drug Dosing ml/min Est GFR ( Amer) ml/min Est GFR (Non-Af Amer) ml/min BUN/Creatinine Ratio (10-20) Glucose (70-99(Fasting)) mg/dl Calcium (8.5-10.1) mg/dl Total Bilirubin (0.2-1.0) mg/dl AST (13-39) U/L ALT (7-52) U/L Alkaline Phosphatase (34-104) U/L Troponin I High Sens 56.2 H* (0-20) pg/ml C-Reactive Protein (0-0.5) mg/dl Total Protein (6.0-8.3) gm/dl Albumin (3.4-5.0) gm/dl Globulin (2.5-4.0) gm/dl Albumin/Globulin Ratio (0.9-2) Lipase (11-82) U/L Procalcitonin (0-0.5) ng/ml Urine Color Yellow Urine Appearance Clear (Clear) Urine pH 5.0 (4.5-7.5) Ur Specific Brandon 1.023 (1.000-1.030) Urine Protein 1+ H (Negative) Urine Glucose (UA) Negative (Negative) Urine Ketones Negative (Negative) Urine Blood Negative (Negative) Urine Nitrite Negative (Negative) Urine Bilirubin Negative (Negative) Urine Urobilinogen Negative (Negative) Ur Leukocyte Esterase Negative (Negative) Urine WBC (Auto) 1-5 (0-5) /hpf Urine RBC (Auto) 0-4 (0-4) /hpf U Hyaline Cast (Auto) 1-5 (0-5) /lpf U Epithel Cells (Auto) 10-20 H (0-5) /lpf Urine Bacteria (Auto) Negative (Negative) SARS-CoV-2 (PCR) POSITIVE A* (Negative) Influenza Type A (PCR) Negative (Neg) Influenza Type B (PCR) Negative (Neg) RSV (RT-PCR) Negative (Neg) Administered Medications Discontinued Medications Sodium Chloride (Nss) 500 mls @ 999 mls/hr IV .Q31M STA Stop: 09/12/21 09:47 Last Infusion: 09/12/21 10:07 Dose: 0 mls/hr Documented by: [id number] Admin: 09/12/21 09:36 Dose: 999 mls/hr Documented by: [id number] Sodium Chloride (Nss 1000ml) 500 mls @ 999 mls/hr IV .Q31M ONE Stop: 09/12/21 12:04 Last Infusion: 09/12/21 12:12 Dose: 0 mls/hr Documented by: [id number] Admin: 09/12/21 11:40 Dose: 999 mls/hr Documented by: [id number] Imaging Data Radiologist's Impression: Chest X-Ray 09/12/21 09:17 XR chest 1V portable CLINICAL HISTORY: Fever. COMPARISON STUDY: 07/16/2021 TECHNIQUE: 1 view of the chest FINDINGS: Single frontal view of the chest demonstrates the heart size to again be mildly enlarged status post previous cardiothoracic surgery for valve replacement. There is a decreased inspiratory effort with elevation of the hemidiaphragms and crowding of the bronchovascular markings at the lung bases and centrally. The lungs are clear of alveolar opacities. There is no evidence for pleural effusion. There is no evidence for vascular congestion. There is no acute osseous pathology. IMPRESSION: 1. There is a decreased inspiratory effort with otherwise no acute chest disease. ACT 112: Negative or not required by law. Electronically signed by: Zion Urias M.D. 09/12/2021 9:57 AM Discharge Plan Visit Data Chief Complaint: Shortness of Breath/Dyspnea Stated Complaint: WEAKNESS, COUGH, FEVER, SOB ED Provider: Stephen Joshua Discharge Problem: COVID-19 virus infection, Weakness, Elevated troponin I level, ACEVEDO (dyspnea on exertion), Fever Patient Disposition: Being Evaluated by Hospitalist Discharge Instructions Interventions: ED Discharge Assessment Last Done: 09/12/21 15:05 Forms Stand Alone Forms: My [employer] Prescriptions Prescriptions: No Action furosemide 40 mg tablet 20 mg PO QAM RF: 0 atorvastatin 20 mg tablet 20 mg PO HS RF: 0 potassium chloride [Klor-Con] 20 mEq Packet 20 meq PO QAM RF: 0 Ocuvite Adult 50 Plus 250-5-1 mg Capsule 2 cap PO QAM RF: 0 sotalol 80 mg Tablet 40 mg PO QAM RF: 0 warfarin 2 mg tablet 4 - 6 mg PO UD RF: 0 acetaminophen [Tylenol Extra Strength] 500 mg Tablet 1,000 mg PO BID PRN (Reason: Pain) Qty: 30 RF: 0 lidocaine 5 % Adhesive Patch,Medicated 1 patch transdermal QAM Qty: 7 RF: 0 diclofenac sodium [Voltaren Arthritis Pain] 1 % Gel 4 g EXT QID Qty: 1 RF: 0 [facility] -
[2021-09-12 09:58] LABS: INR 2.2 (0.9-1.1); Partial Thromboplastin Ratio 1.5; Partial Thromboplastin Time 41.3 Seconds (21.0-31.0)
--- NOTE | 2021-09-12 09:58 | XRay Report ---
XR chest 1V portable CLINICAL HISTORY: Fever. COMPARISON STUDY: 07/16/2021 TECHNIQUE: 1 view of the chest FINDINGS: Single frontal view of the chest demonstrates the heart size to again be mildly enlarged status post previous cardiothoracic surgery for valve replacement. There is a decreased inspiratory effort with e levation of the hemidiaphragms and crowding of the bronchovascular markings at the lung bases and gregg trally. The lungs are clear of alveolar opacities. There is no evidence for pleural effusion. There i s no evidence for vascular congestion. There is no acute osseous pathology. IMPRESSION: 1. There is a decreased inspiratory effort with otherwise no acute chest disease. ACT 112: Negative or not required by law. Electronically signed by: Zion Urias M.D. 09/12/2021 9:57 AM
[2021-09-12 10:00] LABS: Basophils # (auto) 0.01 K/uL (0-0.2); Basophils % (auto) 0.1 %; Eosinophils # (auto) 0.03 K/uL (0-0.5); Eosinophils % (auto) 0.4 %; Hematocrit (blood only) 39.7 % (42-52); Hemoglobin 13.3 g/dL (14.0-18.0); Immature Granulocytes # (auto) 0.01 K/uL (0.00-0.02); Immature Granulocytes % (auto) 0.1 %; Lymphocytes # (auto) 1.59 K/uL (1.2-3.4); Lymphocytes % (auto) 23.6 %; Mean Corpuscular Hemoglobin 31.4 pg (25-34); Mean Corpuscular Hgb Conc 33.5 g/dL (32-36); Mean Corpuscular Volume 93.9 fL (80-100); Mean Platelet Volume 10.5 fL (7.4-10.4); Monocytes # (auto) 2.09 K/uL (0.11-0.59); Neutrophils # (auto) 3.02 K/uL (1.4-6.5); Neutrophils % (auto) 44.8 %; Platelet Count 216 K/uL (130-400); RDW Coefficient of Variation 14.7 % (11.5-14.5); RDW Standard Deviation 49.9 fL (36.4-46.3); Red Blood Count 4.23 M/uL (4.7-6.1); White Blood Count 6.75 K/uL (4.8-10.8)
[2021-09-12 10:16] LABS: Albumin Level 3.7 gm/dl (3.4-5.0); BUN Creatinine Ratio 20.8 (10-20); Bilirubin,Total 0.3 mg/dl (0.2-1.0); C Reactive Protein 2.35 mg/dl (0-0.5); Calcium 8.8 mg/dl (8.5-10.1); Creatinine Clr Calc Pharmacy 42.6 ml/min; Est GFR (African American) 48.9 ml/min; Est GFR (Non-African American) 42.2 ml/min; Globulin 3.7 gm/dl (2.5-4.0); Potassium 3.8 mmol/L (3.5-5.1); Total Protein 7.4 gm/dl (6.0-8.3)
[2021-09-12 10:51] LABS: Troponin I High Sensitivity 61.9 pg/ml (0-20)
[2021-09-12 10:59] LABS: Influenza A virus by PCR Negative (Neg); Influenza B virus by PCR Negative (Neg); RSV by PCR Negative (Neg)
[2021-09-12 11:01] LABS: SARS CoV2 RNA(COVID-19) InHosp POSITIVE (Negative)
[2021-09-12 11:13] LABS: Appearance Urine Clear (Clear); Bacteria Urine Automated Negative (Negative); Bilirubin Urine Negative (Negative); Blood Urine Negative (Negative); Color Urine Yellow; Glucose Urine UA Negative (Negative); Ketones Urine Negative (Negative); Leukocyte Esterase Urine Negative (Negative); Nitrite Urine Negative (Negative); Protein Urine 1+ (Negative); RBC Urine Automated 0-4 /hpf (0-4); Specific Gravity Urine 1.023 (1.000-1.030); Urobilinogen Urine Negative (Negative)
[2021-09-12] MEDS ORDERED: SODIUM CHLORIDE 0.9% 1000ML 500 ML IV ONE (11:34)
--- NOTE | 2021-09-12 12:14 | History & Physical Report ---
Date of Service September 12, 2021 Assessment & Plan (1) COVID-19: Plan: - Symptom onset on Saturday 09/09, this is day #4 of symptoms. - Patient received COVID vaccination + booster. - ESR 43, CRP 2.35, procal .07. - Afebrile today, O2 saturations 94-100% on RA. - Declines remdesivir today and not hypoxic so no indication for dexamethasone - Repeat CBC, CMP, CRP, PT/INR tomorrow AM. - Albuterol q6h prn, Tylenol for pain/fever, Mucinex for congestion prn. (2) Generalized weakness: Plan: - Limited to b/l lower extremities without loss of sensation or mobility, this is likely a symptom of his COVID infection, may also be slightly dehydrated which could be contributing. - Received IVF in ED, will hold off on further IVF as he does have diastolic HF, can hold Lasix today as patient does not appear overloaded. - PT/OT to evaluate and treat. (3) Elevated troponin: Plan: - High sensitive troponin 61.9, repeat 56.2 - With known coronary artery disease, shortness of breath but without chest pain, palpitations, diaphoresis. EKG without specific ST segment/T wave changes--> suspect secondary to myocardial demand ischemia - We will continue to trend q6h x3. - EKG with any new onset chest pain. (4) (HFpEF) heart failure with preserved ejection fraction: Plan: - No evidence of acute exacerbation today. - Lasix40 mg po daily with potassium 20 mEq, however patient reports he has cut back his Lasix to every other day because his sleep is greatly disrupted from frequent urination. 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 - Echo in 04/2021 with EF 55-60%, severely enlarged left atrium, valve gradients of prosthetic valves wnl. (5) Acute on chronic kidney failure: Plan: - BUN 31, creatinine 1.49, slightly elevated from baseline which seems to be 1.3 -1.4. - Continue to monitor on routine labs. - Avoid nephrotoxic agents, renally dose medications as able. - Received 1L IVF in ED, will hold off on additional fluids today in setting of diastolic HF. (6) History of atrial fibrillation: Plan: - NSR today. - Continue sotalol, Coumadin. (7) History of aortic valve replacement: Plan: - Follows with Dr. Toni Painter with [facility] cardiology. - On Coumadin, 8 mg Sunday and Sunday, 6 mg all other days per rx filled 08/29. states she accidentally gave him 12 mg of Coumadin today. - INR today 2.2, goal 2.5-3.5. These are typically checked via [facility], last result from 08/23 was 5.1 per Coumadin clinic card provided by at bedside. - Repeat INR in AM, monitor for evidence of bleeding. (8) History of mitral valve replacement: Plan: - As above. (9) Coronary artery disease: Plan: - Continue lasix, statin, Coumadin. (10) Moderate obstructive sleep apnea: Plan: - No longer uses CPAP. (11) Rotator cuff tear: Plan: - Bilateral, chronic, R worse than L. Not considered a candidate for surgical intervention. - Continue with Tylenol, diclofenac gel, lidocaine patches prn for symptomatic relief. Plan: - Med/tele on OBS. - SCDs, Coumadin for DVT ppx. - DNR/DNI. History of Present Illness Chief Complaint: Shortness of breath, weakness Primary Care Provider: Deric Tello MD Mr. Zhou is an 86-year-old male with past medical history of aortic and mechanical mitral valve replacement (on Coumadin), A. fib, CAD, HLD, HTN, and ALEXANDRO who presents from home today with cough and generalized weakness. On Sunday, patient began experiencing sneezing, dry cough, and fatigue. The symptoms persisted over the weekend and on Sunday, he developed bilateral lower extremity weakness and had a fever of 101. Patient has been bedbound for the past 24 hours due to the weakness and has been struggling to take care of him, which prompted them to present to the ED today for further evaluation. His cough has been dry with minimal sputum production on occasion and causes him minimal shortness of breath with conversation or ambulation. Patient has otherwise been in his normal state of health, no myalgias, night sweats, chest pain, palpitations, dyspnea at rest, abdominal pain, nausea, vomiting, diarrhea, constipation, loss of sensation, numbness/tingling, urinary retention, urinary or fecal incontinence. In ED, patient is bradycardic with heart rate in 50s, otherwise vital signs within normal limits and stable, SpO2 > 94% and afebrile in ED. Routine labs and imaging significant for COVID-19 positive, ESR 43, CRP 2.35. Procalcitonin 0.07. INR 2.2. BUN 31, creatinine 1.49 (baseline ~1.3-1.4). Initial high sensitivity troponin 61.9, 2 hour repeat 56.2. CXR showed decreased inspiratory effort with otherwise no acute chest disease. Blood cultures pending. Patient has received his COVID vaccination as well as booster. No sick contacts at home or in the community that he recalls being exposed to. Allergies Allergy/AdvReac Type Severity Reaction Status Date / Time Penicillins Allergy Mild RASH Verified 07/12/21 15:54 celecoxib [From Celebrex] Allergy Unknown Verified 07/12/21 15:54 cyclobenzaprine Allergy Unknown Verified 07/12/21 15:54 [From Flexeril] simvastatin AdvReac Mild MUSCLE PAIN Verified 07/12/21 15:54 Home Medications Medication Instructions Recorded Confirmed Type atorvastatin 20 mg tablet 20 mg PO HS 03/04/19 09/12/21 History furosemide 40 mg tablet 20 mg PO QAM 03/04/19 09/12/21 History potassium chloride 20 mEq oral 20 meq PO QAM 11/12/19 09/12/21 History packet (Klor-Con) sotalol 80 mg tablet 40 mg PO QAM 11/12/19 09/12/21 History vit C,E,zinc,copper-oekwt8d 250 2 cap PO QAM 11/12/19 09/12/21 History mg-lutein 5 mg-zeaxanthin 1 mg capsule (Ocuvite Adult 50 Plus) warfarin 2 mg tablet 4 - 6 mg PO UD 07/12/21 09/12/21 History acetaminophen 500 mg tablet 1,000 mg PO BID PRN #30 tab 07/18/21 09/12/21 Rx (Tylenol Extra Strength) diclofenac sodium 1 % topical gel 4 g EXT QID #1 tube 07/18/21 09/12/21 Rx (Voltaren Arthritis Pain) lidocaine 5 % topical patch 1 patch TRANSDERMAL QAM #7 ea 07/18/21 09/12/21 Rx Past Med/Surg History Medical History History of atrial fibrillation History of cardioversion Hx of cardiac murmur Hypertension Macular degeneration GETS SHOTS IN EYES FOR TREATMENT Q8-10 WEEKS Restless leg syndrome Ventral hernia Surgical History History of aortic valve replacement AT AGE 58 (DENICE TAYLOR) History of colonoscopy History of inguinal hernia repair LEFT X 2 History of left cataract surgery 11/19/2019. propofol given. 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 Feels Safe at Home: Yes Assistive Devices: None Review of Systems Review of Systems: Constitutional: repotrs fever yesterday and generalized b/l lower extremity weakness, fatigue; denies myalgias, anorexia, night sweats Eyes: No diplopia, no worsening or blurred vision ENT: normal hearing, no trouble swallowing Respiratory: dry cough with occasional sputum; some mild dyspnea on exertion or with conversation Cardiovascular: No chest pain, tightness or palpitations Abdomen: No pain, nausea, vomiting, diarrhea or constipation : Denies dysuria, hematuria, increased urgency/frequency, urinary retention Musculoskeletal: No joint pain, calf pain, swelling Neurologic: No focal weakness, numbness/tingling, or balance problems Psychiatric: No anxiety or depression Skin: No rash or itch Physical Exam Physical Exam: General: awake, alert, no apparent distress, on RA Head: Normocephalic, atraumatic ENT: PERRL, EOMI, no pharyngeal exudate, mucous membranes moist Chest: On RA, some conversational tachypnea, no diminished breath sounds, no adventitious breath sounds Cardiac: Regular rate and rhythm, no murmur, no JVD, normal peripheral pulses, good capillary refill Abdominal: NABS x 4 quadrants, soft, nontender to palpation, no rebound, guarding or tenderness Extremities: Normal inspection, no peripheral edema or erythema, calfs nontender to palpation Psych: Normal mood and affect Neuro: AAO x 3, strength intact bilaterally and rated 5/5, no motor deficits, speech is clear, no peripheral sensory deficits Skin: no rash or erythema Results & Data Results & Data ([facility]) Vital Signs (Past 12 Hours) Vital Signs Temp Pulse Resp BP Pulse Ox 09/12/21 11:00 50 L 21 118/63 95 09/12/21 10:30 49 L 23 144/69 H 97 09/12/21 10:00 66 17 113/54 L 94 09/12/21 09:30 53 L 21 104/60 96 09/12/21 09:15 36.9 C 100 H 18 135/93 95 Laboratory Results Abnormal lab results 09/12/21 09/12/21 09/12/21 Range/Units 09:23 09:23 09:23 RBC 4.23 L (4.7-6.1) M/uL Hgb 13.3 L (14.0-18.0) g/dL Hct 39.7 L (42-52) % RDW Std Deviation 49.9 H (36.4-46.3) fL RDW Coeff of Cresencio 14.7 H (11.5-14.5) % MPV 10.5 H (7.4-10.4) fL Morehouse # (Auto) 2.09 H (0.11-0.59) K/uL ESR (0-20) mm/hr PT 22.0 H (9.0-12.0) Seconds INR 2.2 H (0.9-1.1) APTT 41.3 H (21.0-31.0) Seconds Sodium 134 L (136-145) mmol/L BUN 31 H (6-23) mg/dl Creatinine 1.49 H (0.6-1.4) mg/dl BUN/Creatinine Ratio 20.8 H (10-20) Troponin I High Sens 61.9 H* (0-20) pg/ml C-Reactive Protein 2.35 H (0-0.5) mg/dl Urine Protein (Negative) U Epithel Cells (Auto) (0-5) /lpf SARS-CoV-2 (PCR) (Negative) 09/12/21 09/12/21 09/12/21 Range/Units 09:23 09:39 10:00 RBC (4.7-6.1) M/uL Hgb (14.0-18.0) g/dL Hct (42-52) % RDW Std Deviation (36.4-46.3) fL RDW Coeff of Cresencio (11.5-14.5) % MPV (7.4-10.4) fL [place] # (Auto) (0.11-0.59) K/uL ESR 43 H (0-20) mm/hr PT (9.0-12.0) Seconds INR (0.9-1.1) APTT (21.0-31.0) Seconds Sodium (136-145) mmol/L BUN (6-23) mg/dl Creatinine (0.6-1.4) mg/dl BUN/Creatinine Ratio (10-20) Troponin I High Sens (0-20) pg/ml C-Reactive Protein (0-0.5) mg/dl Urine Protein 1+ H (Negative) U Epithel Cells (Auto) 10-20 H (0-5) /lpf SARS-CoV-2 (PCR) POSITIVE A* (Negative) Diagnostic Findings Chest X-Ray 09/12/21 09:17 XR chest 1V portable CLINICAL HISTORY: Fever. COMPARISON STUDY: 07/16/2021 TECHNIQUE: 1 view of the chest FINDINGS: Single frontal view of the chest demonstrates the heart size to again be mildly enlarged status post previous cardiothoracic surgery for valve replacement. There is a decreased inspiratory effort with elevation of the hemidiaphragms and crowding of the bronchovascular markings at the lung bases and centrally. The lungs are clear of alveolar opacities. There is no evidence for pleural effusion. There is no evidence for vascular congestion. There is no acute osseous pathology. IMPRESSION: 1. There is a decreased inspiratory effort with otherwise no acute chest dis ease. ACT 112: Negative or not required by law. Electronically signed by: Zion Urias M.D. 09/12/2021 9:57 AM ECG Additional Comments: Sinus bradycardia with 1st degree A-V block Possible Anterior infarct (cited on or before 12-SEP-2021) Abnormal ECG When compared with ECG of 12-JUL-2021 12:28, Questionable change in QRS axis ST elevation has replaced ST depression in Inferior leads Non-specific change in ST segment in Lateral leads. Code Status & VTE Plan Code Status DNR/DNI. Supervising Physician Co-Signing Physician Notes PA Supervision Note: I personally saw and examined the patient. I verified all talavera points and agree with NOEL Jarquin with the following exceptions and/or additions: This patient is an 86-year-old male with history of AVR, MVR on Coumadin, CAD, chronic diastolic CHF, CKD stage III, pseudogout, ALEXANDRO, atrial fibrillation, who presents to the ER with weakness and found to have COVID-19 Fortunately is not hypoxic, no pneumonia on chest x-ray. He is slightly dehydrated. History and ROS reviewed as above Vitals reviewed Gen: AAOx3, NAD HEENT: Anicteric sclerae, EOMI CV: RRR no mgr nl S1S2 Pulm: Good air movement throughout, mild expiratory wheezes on the left Abd: +BS soft NT ND no masses or hernias Ext: No edema, 2+ DP pulses Skin: No rashes, warm/dry Neuro: Full strength throughout Labs and rads reviewed, ECG reviewed 86-year-old male with history as above, here with COVID-19 and generalized weakness, mild dehydration, and myocardial demand ischemia. Bring in on observation, observe for worsening hypoxia Trend serial troponin No further IV fluids to be given Plan outlined as above PG Care Time/CCT Total # of Minutes Spent Total Time Spent with Patient: Total time spent is greater than 50% in coordination of care (as documented) at patient's floor/unit and/or counseling patient: Coding Level of Care Code INT OBSERVATION CARE 70M LVL 3 Diagnoses COVID-19 U07.1 History of aortic valve replacement Z95.2 History of mitral valve replacement Z95.2 Moderate obstructive sleep apnea G47.33 Rotator cuff tear M75.100 History of atrial fibrillation Z86.79 (HFpEF) heart failure with preserved ejection fraction I50.30 Elevated troponin R77.8 Coronary artery disease I25.10 Generalized weakness R53.1 Acute on chronic kidney failure N17.9; N18.9
[2021-09-12 12:31] LABS: D Dimer 730 ug/L FEU (0-500)
--- NOTE | 2021-09-12 15:44 | Electrocardiogram Report ---
Test Reason : Blood Pressure : / mmHG Vent. Rate : 053 BPM Atrial Rate : 053 BPM P-R Int : 230 ms QRS Dur : 110 ms QT Int : 424 ms P-R-T Axes : 084 083 242 degrees QTc Int : 397 ms Sinus bradycardia with 1st degree A-V block Poor R wave progression, consider anterior TX vs. lead placement vs. LVH Abnormal ECG When compared with ECG of 12-JUL-2021 12:28, Questionable change in QRS axis Non-specific change in ST segment in Lateral leads Confirmed by Stephen Martins ([id number]) on 09/12/2021 3:43:51 PM Referred By: Deric Tello Confirmed By:Stephen Martins
[2021-09-12] MEDS ORDERED: ONDANSETRON INJ 2 MG/ML 2 ML VIAL IV PRN (16:12)
[2021-09-12] MEDS ORDERED: ALBUTEROL 0.083% NEBU SOLN 3 ML VIAL INH PRN (16:12)
[2021-09-12] MEDS ORDERED: POLYETHYLENE (MIRALAX) 17 GM PACK PO PRN (16:12)
[2021-09-12] MEDS: WARFARIN SOD 4 MG TAB PO SCH (18:20)
[2021-09-12] MEDS ORDERED: Nursing to Pharmacy Communication SCH (18:30)
[2021-09-12] MEDS: ATORVASTATIN 20 MG TAB PO SCH (21:16)
[2021-09-13 04:15] LABS: Basophils # (auto) 0.01 K/uL (0-0.2); Basophils % (auto) 0.2 %; Eosinophils # (auto) 0.06 K/uL (0-0.5); Hematocrit (blood only) 40.6 % (42-52); Hemoglobin 13.5 g/dL (14.0-18.0); Immature Granulocytes # (auto) 0.01 K/uL (0.00-0.02); Immature Granulocytes % (auto) 0.2 %; Lymphocytes # (auto) 1.35 K/uL (1.2-3.4); Lymphocytes % (auto) 22.7 %; Mean Corpuscular Hemoglobin 31.2 pg (25-34); Mean Corpuscular Hgb Conc 33.3 g/dL (32-36); Mean Corpuscular Volume 93.8 fL (80-100); Mean Platelet Volume 10.2 fL (7.4-10.4); Monocytes # (auto) 1.99 K/uL (0.11-0.59); Monocytes % (auto) 33.4 %; Neutrophils # (auto) 2.54 K/uL (1.4-6.5); Neutrophils % (auto) 42.5 %; Platelet Count 193 K/uL (130-400); RDW Coefficient of Variation 14.4 % (11.5-14.5); RDW Standard Deviation 49.6 fL (36.4-46.3); Red Blood Count 4.33 M/uL (4.7-6.1); White Blood Count 5.96 K/uL (4.8-10.8)
[2021-09-13 04:23] LABS: INR 2.3 (0.9-1.1); Prothrombin Time 23.1 Seconds (9.0-12.0)
[2021-09-13 04:34] LABS: Albumin Level 3.7 gm/dl (3.4-5.0); Bilirubin,Total 0.4 mg/dl (0.2-1.0); C Reactive Protein 2.29 mg/dl (0-0.5); Calcium 8.8 mg/dl (8.5-10.1); Creatinine Clr Calc Pharmacy 65.8 ml/min; Est GFR (African American) 52.7 ml/min; Est GFR (Non-African American) 45.5 ml/min; Globulin 3.6 gm/dl (2.5-4.0); Magnesium 1.9 mg/dl (1.7-2.4); Potassium 3.9 mmol/L (3.5-5.1); Total Protein 7.3 gm/dl (6.0-8.3)
[2021-09-13] MEDS ORDERED: NON-FORMULARY MEDICATION (C,E,Zinc,Copper 11-Omega3s-Lut [Ocuvite Adult 50 Plus] 250-5-1 m PO SCH (09:00)
[2021-09-13] MEDS: FUROSEMIDE 20 MG TAB PO SCH (10:06)
[2021-09-13] MEDS: SOTALOL HCL 80 MG TAB PO SCH (10:06)
[2021-09-13] MEDS: POTASSIUM CHLORIDE PWD 20 MEQ PACK PO SCH (10:06)
[2021-09-13] MEDS: ACETAMINOPHEN 500 MG TAB PO PRN (17:46)
[2021-09-13] MEDS: WARFARIN SOD 6 MG TAB PO SCH (17:47)
[2021-09-13] MEDS: LIDOCAINE 5% 1 PATCH TD PRN (18:27)
--- NOTE | 2021-09-13 21:11 | Hospitalist Progress Note ---
Date of Service September 13, 2021 Assessment & Plan (1) COVID-19: Plan: - Symptom onset on Saturday 09/09, this is day #4 of symptoms. - Patient received COVID vaccination + booster. - ESR 43, CRP 2.35, procal .07. - Afebrile today, O2 saturations 94-100% on RA. - Declines remdesivir today and not hypoxic so no indication for dexamethasone. This remains true on 09/13 - Patient continues to feel weak. - Albuterol q6h prn, Tylenol for pain/fever, Mucinex for congestion prn. (2) Generalized weakness: Plan: - Limited to b/l lower extremities without loss of sensation or mobility, this is likely a symptom of his COVID infection, may also be slightly dehydrated which could be contributing. - Received IVF in ED, will hold off on further IVF as he does have diastolic HF, can hold Lasix today as patient does not appear overloaded. - PT/OT to evaluate and treat. -recommend rehab (3) Elevated troponin: Plan: - High sensitive troponin 61.9, repeat 56.2 - With known coronary artery disease, shortness of breath but without chest pain, palpitations, diaphoresis. EKG without specific ST segment/T wave changes--> suspect secondary to myocardial demand ischemia - We will continue to trend q6h x3. - EKG with any new onset chest pain. (4) (HFpEF) heart failure with preserved ejection fraction: Plan: - No evidence of acute exacerbation today. - Lasix40 mg po daily with potassium 20 mEq, however patient reports he has cut back his Lasix to every other day because his sleep is greatly disrupted from frequent urination. 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 - Echo in 04/2021 with EF 55-60%, severely enlarged left atrium, valve gradients of prosthetic valves wnl. (5) Acute on chronic kidney failure: Plan: - BUN 31, creatinine 1.49, slightly elevated from baseline which seems to be 1.3 -1.4. - Continue to monitor on routine labs. - Avoid nephrotoxic agents, renally dose medications as able. - Received 1L IVF in ED, will hold off on additional fluids today in setting of diastolic HF. (6) History of atrial fibrillation: Plan: - NSR today. - Continue sotalol, Coumadin. (7) History of aortic valve replacement: Plan: - Follows with Dr. Toni Painter with [facility] cardi[facility]. - On Coumadin, 8 mg Sunday and Sunday, 6 mg all other days per rx filled 08/29. states she accidentally gave him 12 mg of Coumadin today. - INR today 2.2, goal 2.5-3.5. These are typically checked via [facility], last result from 08/23 was 5.1 per Coumadin clinic card provided by at bedside. - Repeat INR in AM, monitor for evidence of bleeding. (8) History of mitral valve replacement: Plan: - As above. (9) Coronary artery disease: Plan: - Continue lasix, statin, Coumadin. (10) Moderate obstructive sleep apnea: Plan: - No longer uses CPAP. (11) Rotator cuff tear: Plan: - Bilateral, chronic, R worse than L. Not considered a candidate for surgical intervention. - Continue with Tylenol, diclofenac gel, lidocaine patches prn for symptomatic relief. Plan: - Med/tele on OBS. - SCDs, Coumadin for DVT ppx. - DNR/DNI. Admission and Anticipated Discharge Date Admission Date: September 12, 2021 Subjective 86 yo male reports no new symptoms. Continues to feel weak. Review of Systems Review of Systems: All systems reviewed & are unremarkable except as noted in HPI & below Physical Exam Physical Exam: General: awake, alert, no apparent distress, on RA Head: Normocephalic, atraumatic ENT: PERRL, EOMI, no pharyngeal exudate, mucous membranes moist Chest: On RA, some conversational tachypnea, no diminished breath sounds, no adventitious breath sounds Cardiac: Regular rate and rhythm, no murmur, no JVD, normal peripheral pulses, good capillary refill Abdominal: NABS x 4 quadrants, soft, nontender to palpation, no rebound, guarding or tenderness Extremities: Normal inspection, no peripheral edema or erythema, calfs nontender to palpation Psych: Normal mood and affect Neuro: AAO x 3, strength intact bilaterally and rated 5/5, no motor deficits, speech is clear, no peripheral sensory deficits Skin: no rash or erythema Results & Data Results & Data ([facility]) Vital Signs (Past 12 Hours) Vital Signs Temp Pulse Pulse Resp BP Pulse Ox 09/13/21 19:07 36.5 C 56 L 20 149/72 H 95 09/13/21 16:49 36.9 C 58 L 16 114/59 L 95 09/13/21 15:24 96 09/13/21 15:22 43 L 09/13/21 10:54 37.2 C 62 18 162/82 H 98 PG Care Time/CCT Total # of Minutes Spent Total Time Spent with Patient: Total time spent is greater than 50% in coordination of care (as documented) at patient's floor/unit and/or counseling patient: Coding Level of Care Code 58666 Subseq Hosp Care Lvl 2 Diagnoses COVID-19 U07.1 Generalized weakness R53.1 Elevated troponin R77.8 (HFpEF) heart failure with preserved ejection fraction I50.30 Acute on chronic kidney failure N17.9; N18.9 History of atrial fibrillation Z86.79 History of aortic valve replacement Z95.2 History of mitral valve replacement Z95.2 Coronary artery disease I25.10 Moderate obstructive sleep apnea G47.33 Rotator cuff tear M75.100
[2021-09-13] MEDS: ATORVASTATIN 20 MG TAB PO SCH (21:31)
[2021-09-14 02:24] LABS: BUN Creatinine Ratio 23.4 (10-20); Calcium 8.4 mg/dl (8.5-10.1); Creatinine Clr Calc Pharmacy 40.3 ml/min; Est GFR (African American) 52.3 ml/min; Est GFR (Non-African American) 45.1 ml/min; Magnesium 1.9 mg/dl (1.7-2.4); Phosphorus 3.9 mg/dl (2.5-4.9); Potassium 3.7 mmol/L (3.5-5.1)
[2021-09-14] MEDS ORDERED: POTASSIUM CHLORIDE CRTAB 20 MEQ TABCR PO STA (06:58)
[2021-09-14] MEDS: guaiFENesin 600 MG TABCR PO PRN (07:46)
[2021-09-14] MEDS: SOTALOL HCL 80 MG TAB PO SCH (07:47)
[2021-09-14] MEDS: POTASSIUM CHLORIDE PWD 20 MEQ PACK PO SCH (07:48)
[2021-09-14] MEDS: FUROSEMIDE 20 MG TAB PO SCH (07:48)
--- NOTE | 2021-09-14 10:20 | Electrocardiogram Report ---
Test Reason : Blood Pressure : / mmHG Vent. Rate : 048 BPM Atrial Rate : 048 BPM P-R Int : 344 ms QRS Dur : 124 ms QT Int : 498 ms P-R-T Axes : 051 085 044 degrees QTc Int : 444 ms Sinus bradycardia with sinus arrhythmia with 1st degree A-V block Septal infarct (cited on or before 14-SEP-2021) Abnormal ECG When compared with ECG of 12-SEP-2021 09:18, T wave inversion no longer evident in Lateral leads QT has lengthened Confirmed by Stephen Martins ([id number]) on 09/14/2021 10:20:03 AM Referred By: Deric Tello Confirmed By:Stephen Martins
[2021-09-14] MEDS: WARFARIN SOD 4 MG TAB PO SCH (16:21)
[2021-09-14] MEDS: WARFARIN SOD 6 MG TAB PO SCH (16:29)
[2021-09-14] MEDS: ATORVASTATIN 20 MG TAB PO SCH (21:38)
--- NOTE | 2021-09-14 21:55 | Hospitalist Progress Note ---
Date of Service September 14, 2021 Assessment & Plan (1) COVID-19: Plan: - Symptom onset on Saturday 09/09, this is day #4 of symptoms. - Patient received COVID vaccination + booster. - ESR 43, CRP 2.35, procal .07. - Afebrile today, O2 saturations 94-100% on RA. - Declines remdesivir today and not hypoxic so no indication for dexamethasone. This remains true on 09/14 - Patient continues to feel weak and is requesting rehab. -PT recommends rehab, OT recommends HOME. -WILL NEED TO DISCUSS WITH CASE MANAGEMENT. - Albuterol q6h prn, Tylenol for pain/fever, Mucinex for congestion prn. (2) Generalized weakness: Plan: - Limited to b/l lower extremities without loss of sensation or mobility, this is likely a symptom of his COVID infection, may also be slightly dehydrated which could be contributing. - Received IVF in ED, will hold off on further IVF as he does have diastolic HF, can hold Lasix today as patient does not appear overloaded. - PT/OT to evaluate and treat. -recommend rehab (3) Elevated troponin: Plan: - High sensitive troponin 61.9, repeat 56.2 - With known coronary artery disease, shortness of breath but without chest pain, palpitations, diaphoresis. EKG without specific ST segment/T wave changes--> suspect secondary to myocardial demand ischemia - We will continue to trend q6h x3. - EKG with any new onset chest pain. (4) (HFpEF) heart failure with preserved ejection fraction: Plan: - No evidence of acute exacerbation today. - Lasix40 mg po daily with potassium 20 mEq, however patient reports he has cut back his Lasix to every other day because his sleep is greatly disrupted from frequent urination. - Dr Toni Painter, [facility], is his primary senior executive assistant. - Echo in 04/2021 with EF 55-60%, severely enlarged left atrium, valve gradients of prosthetic valves wnl. (5) Acute on chronic kidney failure: Plan: - BUN 31, creatinine 1.49, slightly elevated from baseline which seems to be 1.3 -1.4. - Continue to monitor on routine labs. - Avoid nephrotoxic agents, renally dose medications as able. - Received 1L IVF in ED, will hold off on additional fluids today in setting of diastolic HF. (6) History of atrial fibrillation: Plan: - NSR today. - Continue sotalol, Coumadin. (7) History of aortic valve replacement: Plan: - Follows with Dr. Toni Painter with [facility] cardiology. - On Coumadin, 8 mg Sunday and Sunday, 6 mg all other days per rx filled 08/29. states she accidentally gave him 12 mg of Coumadin today. - INR today 2.2, goal 2.5-3.5. These are typically checked via [facility] Coumadin clinic, last result from 08/23 was 5.1 per Coumadin clinic card provided by at bedside. - INR: 2.3 (8) History of mitral valve replacement: Plan: - As above. (9) Coronary artery disease: Plan: - Continue lasix, statin, Coumadin. (10) Moderate obstructive sleep apnea: Plan: - No longer uses CPAP. (11) Rotator cuff tear: Plan: - Bilateral, chronic, R worse than L. Not considered a candidate for surgical intervention. - Continue with Tylenol, diclofenac gel, lidocaine patches prn for symptomatic relief. Plan: - Med/tele on OBS. - SCDs, Coumadin for DVT ppx. - DNR/DNI. Admission and Anticipated Discharge Date Admission Date: September 14, 2021 Subjective Patient reports no new symptoms. Review of Systems Review of Systems: All systems reviewed & are unremarkable except as noted in HPI & below Physical Exam Physical Exam: General: awake, alert, no apparent distress, on RA Head: Normocephalic, atraumatic ENT: PERRL, EOMI, no pharyngeal exudate, mucous membranes moist Chest: On RA, some conversational tachypnea, no diminished breath sounds, no adventitious breath sounds Cardiac: Regular rate and rhythm, no murmur, no JVD, normal peripheral pulses, good capillary refill Abdominal: NABS x 4 quadrants, soft, nontender to palpation, no rebound, guarding or tenderness Extremities: Normal inspection, no peripheral edema or erythema, calfs nontender to palpation Psych: Normal mood and affect Neuro: AAO x 3, strength intact bilaterally and rated 5/5, no motor deficits, speech is clear, no peripheral sensory deficits Skin: no rash or erythema Results & Data Results & Data ([facility]) Vital Signs (Past 12 Hours) Vital Signs Temp Pulse Pulse Resp BP Pulse Ox 09/14/21 18:40 36.6 C 51 L 20 132/70 95 09/14/21 16:02 36.6 C 47 L 20 119/61 96 09/14/21 14:56 92 H 09/14/21 12:26 36.5 C 77 20 131/71 96 PG Care Time/CCT Total # of Minutes Spent Total Time Spent with Patient: Total time spent is greater than 50% in coordination of care (as documented) at patient's floor/unit and/or counseling patient: Coding Level of Care Code 14197 Subseq Hosp Care Lvl 2 Diagnoses COVID-19 U07.1 Generalized weakness R53.1 Elevated troponin R77.8 (HFpEF) heart failure with preserved ejection fraction I50.30 Acute on chronic kidney failure N17.9; N18.9 History of atrial fibrillation Z86.79 History of aortic valve replacement Z95.2 History of mitral valve replacement Z95.2 Coronary artery disease I25.10 Moderate obstructive sleep apnea G47.33 Rotator cuff tear M75.100
[2021-09-15 07:23] LABS: Hematocrit (blood only) 37.5 % (42-52); Hemoglobin 13.1 g/dL (14.0-18.0); Mean Corpuscular Hemoglobin 31.8 pg (25-34); Mean Corpuscular Hgb Conc 34.9 g/dL (32-36); Mean Platelet Volume 10.4 fL (7.4-10.4); Platelet Count 163 K/uL (130-400); RDW Coefficient of Variation 14.1 % (11.5-14.5); RDW Standard Deviation 46.9 fL (36.4-46.3); Red Blood Count 4.12 M/uL (4.7-6.1); White Blood Count 5.14 K/uL (4.8-10.8)
[2021-09-15 07:45] LABS: INR 3.2 (0.9-1.1); Prothrombin Time 32.2 Seconds (9.0-12.0)
[2021-09-15 08:17] LABS: BUN Creatinine Ratio 22.5 (10-20); C Reactive Protein 1.42 mg/dl (0-0.5); Calcium 8.6 mg/dl (8.5-10.1); Creatinine Clr Calc Pharmacy 41.1 ml/min; Est GFR (African American) 53.6 ml/min; Est GFR (Non-African American) 46.3 ml/min
[2021-09-15] MEDS: guaiFENesin 600 MG TABCR PO PRN (09:45)
[2021-09-15] MEDS: POTASSIUM CHLORIDE PWD 20 MEQ PACK PO SCH (09:45)
[2021-09-15] MEDS: SOTALOL HCL 80 MG TAB PO SCH (09:52)
[2021-09-15] MEDS: FUROSEMIDE 20 MG TAB PO SCH (11:17)
[2021-09-15] MEDS: LIDOCAINE 5% 1 PATCH TD PRN (11:18)
[2021-09-15] MEDS: WARFARIN SOD 6 MG TAB PO SCH (15:46)
--- NOTE | 2021-09-15 15:51 | Cardiology Consultation ---
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 While hospitalized, he has had sinus bradycardia in the 50s, which is his typical baseline. Telemetry reviewed and on 09/15/2021 at 9:45 AM sinus bradycardia noted with first-degree AV block, slightly longer prolongation of his first-degree AV block 400 ms noted intermittently. There are several episodes of sinus rhythm with blocked premature atrial contractions. Once again no prolonged bradycardia worse than baseline. On 09/15/2021 at 12:26 PM, episode of sinus rhythm with long first-degree AV block and progressive VT prolongation, there is a transient episode of 2: 1 AV block with 2 dropped QRS complexes. No prolonged bradycardia. No related symptoms. Of note, patient does have a history of paroxysmal atrial fibrillation and is maintained on low-dose sotalol 40 mg daily. At this time the QT interval is stable. I would recommend continuing chronic dose of sotalol 40 mg daily. (2) History of atrial fibrillation: -Continue sotalol, Coumadin. -History of mechanical aortic valve replacement, goal INR 2.5-3.5. (3) COVID-19 virus infection: -Continue supportive care (4) (HFpEF) heart failure with preserved ejection fraction: -(Stable, most recent outpatient cardiology note records him taking furosemide 40 mg daily, currently plan status is stable on 20 mg p.o. daily History of Present Illness Attending Physician: Sathya Ruiz MD History of Present Illness Musa Zhou is an 86-year-old male seen in cardiology consultation per the request of Dr. Carpio for the evaluation of bradycardia. The patient's primary programmer operator numerical control is Dr. Painter of our practice. Patient was admitted via the emergency room 3 days ago on 09/12/2021 with symptoms of profound weakness and was found to have SARS-CoV-2 virus. Although a cough is reproduced during my interview with the patient, he has not had issues with hypoxia, pulse oximetry 98% on room air. He describes merely severe fatigue. Past Medical History: 1.Bicuspid aortic valve status post initial aortic valve replacement in [address] mechanical prosthesis. 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 3.Paroxysmal atrial fibrillation, on Sotalol and warfarin 4.Nonobstructive CAD per cardiac cath, 2012 5.Interstitial nodular lung disease, follows with pulmonary 6.Pseudogout. Allergies Allergy/AdvReac Type Severity Reaction Status Date / Time Penicillins Allergy Mild RASH Verified 07/12/21 15:54 celecoxib [From Celebrex] Allergy Unknown Verified 07/12/21 15:54 cyclobenzaprine Allergy Unknown Verified 07/12/21 15:54 [From Flexeril] simvastatin AdvReac Mild MUSCLE PAIN Verified 07/12/21 15:54 Home Medications Medication Instructions Recorded Confirmed Type atorvastatin 20 mg tablet 20 mg PO HS 03/04/19 09/12/21 History furosemide 40 mg tablet 20 mg PO QAM 03/04/19 09/12/21 History potassium chloride 20 mEq oral 20 meq PO QAM 11/12/19 09/12/21 History packet (Klor-Con) sotalol 80 mg tablet 40 mg PO QAM 11/12/19 09/12/21 History vit C,E,zinc,copper-tdqni6v 250 2 cap PO QAM 11/12/19 09/12/21 History mg-lutein 5 mg-zeaxanthin 1 mg capsule (Ocuvite Adult 50 Plus) warfarin 2 mg tablet 4 - 6 mg PO UD 07/12/21 09/12/21 History acetaminophen 500 mg tablet 1,000 mg PO BID PRN #30 tab 07/18/21 09/12/21 Rx (Tylenol Extra Strength) diclofenac sodium 1 % topical gel 4 g EXT QID #1 tube 07/18/21 09/12/21 Rx (Voltaren Arthritis Pain) lidocaine 5 % topical patch 1 patch TRANSDERMAL QAM #7 ea 07/18/21 09/12/21 Rx Patient History Medical History History of atrial fibrillation History of cardioversion Hx of cardiac murmur Hypertension Macular degeneration GETS SHOTS IN EYES FOR TREATMENT Q8-10 WEEKS Restless leg syndrome Ventral hernia Surgical History History of aortic valve replacement AT AGE 58 ([facility] JD[facility] BAHENA) History of colonoscopy History of inguinal hernia repair LEFT X 2 History of left cataract surgery 11/19/2019. propofol given. 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 Feels Safe at Home: Yes Assistive Devices: Glasses and Walker Review of Systems Review of Systems: All systems reviewed & are unremarkable except as noted in HPI & below Physical Exam Physical Exam: Temp Pulse Resp BP Pulse Ox 36.5 C 60 20 107/62 98 09/15/21 15:09 09/15/21 15:09 09/15/21 15:09 09/15/21 15:09 09/15/21 15:09 Constitutional: no acute distress Respiratory: Coarse breath sounds with deep inspiration, cough, no rales or rhonchi Cardiovascular: Rate/Rhythm: regular rhythm and + bradycardic Extremities: no edema No murmur, prosthetic heart sounds noted Gastrointestinal (Abdomen): normal bowel sounds, soft, nontender, no hepatosplenomegaly Neurologic: PERRL, EOMI, accommodation nl, no face palsy, no dysarthria Results & Data ([facility]) Vital Signs (Past 12 Hours) Vital Signs Temp Pulse Pulse Resp BP BP Pulse Ox 09/15/21 15:09 36.5 C 60 20 107/62 98 09/15/21 11:42 36.8 C 52 L 20 127/69 95 09/15/21 07:20 52 L 09/15/21 06:42 36.5 C 96 H 20 117/68 98 09/15/21 06:00 51 L 09/15/21 04:17 36.8 C 60 18 109/64 93 Laboratory Results Coagulation 09/15/21 Range/Units 07:07 PT 32.2 H (9.0-12.0) Seconds INR 09/15/21: 3.2 CBC 09/15/21 Range/Units 07:07 WBC 5.14 (4.8-10.8) K/uL RBC 4.12 L (4.7-6.1) M/uL Hgb 13.1 L (14.0-18.0) g/dL Hct 37.5 L (42-52) % Plt Count 163 (130-400) K/uL Comprehensive Metabolic Panel 09/15/21 Range/Units 07:07 Sodium 135 L (136-145) mmol/L Potassium 4.0 (3.5-5.1) mmol/L Chloride 101 (98-107) mmol/L Carbon Dioxide 28 (21-32) mmol/L BUN 31 H (6-23) mg/dl Creatinine 1.38 (0.6-1.4) mg/dl Glucose 83 (70-99(Fasting)) mg/dl Calcium 8.6 (8.5-10.1) mg/dl Intake and Output 09/15/21 09/15/21 09/15/21 06:59 14:59 22:59 Intake Total 200 / 1580 1160 / 1160 Output Total 600 / 1601 452 / 452 Balance -400 / -21 708 / 708 Intake: Oral 200 / 1580 1160 / 1160 Output: Urine 600 / 1600 450 / 450 # Bowel Movements 2 / 2 Other: Weight 83.1 kg Weight Measurement Method Built in [facility] Diagnostic Findings EKG performed 09/14/2021, 12:56 AM: Sinus bradycardia at 48 bpm with long first- degree AV block, VT interval 344 ms, QT interval 444 ms. Compared to prior tracing performed 09/12/2021, sinus bradycardia with long first-degree AV block, VT interval 230 ms noted at that time. Baseline outpatient EKG reviewed from the [facility] medical record dated 09/18: Sinus bradycardia 53 bpm, first-degree AV block, VT interval 346 ms, poor R wave progression, similar to those noted on the recent hospital tracings. Summary of the report of most recent outpatient echocardiogram 04/20/2021: There was sinus bradycardia during the examination. The left ventricular cavity size is normal. The LV wall thickness is moderately increased (concentric). The left ventricular wall motion is normal. The qualitative LV ejection fraction is 55-59% (normal). The left atrium is severely enlarged (>48 ml/m^2,). There is an aortic valve bileaftlet disc (St. Ry type) mechanical prosthesis present. Aortic valve prosthesis stenosis is absent. The aortic valve prosthesis systolic gradients are normal for this type prosthesis. There is a mitral valve bioprosthesis present. The mitral valve prosthesis systolic gradients are normal for this type prosthesis. Mild tricuspid regurgitation is present. There is no evidence of pulmonary hypertension. Compared to prior study of 02/21/2019, there is no significant change. 24-hour Holter monitor performed July,: Predominant rhythm sinus bradycardia with first-degree AV block, average rate 57 bpm.
--- NOTE | 2021-09-15 18:26 | Hospitalist Progress Note ---
Date of Service September 15, 2021 Assessment & Plan (1) COVID-19: Plan: - Symptom onset on Saturday 09/09, this is day #6 of symptoms. Mild diarrhea started today. - Patient received COVID vaccination + booster. - ESR 43, CRP 2.35, procal .07. CRP improving - Checked with pharmacy and we do not have molnupiravir to give as inpatient. Does not qualify for remdesivir or dexamethasone - medically stable awaiting placement at this time (2) Generalized weakness: Plan: - Secondary to COVID1-9 as above - PT/OT to evaluate and treat. -recommend rehab (3) Elevated troponin: Plan: - High sensitive troponin 61.9, repeat 56.2 - With known coronary artery disease, shortness of breath but without chest pain, palpitations, diaphoresis. EKG without specific ST segment/T wave changes--> suspect secondary to myocardial demand ischemia (4) (HFpEF) heart failure with preserved ejection fraction: Plan: - No evidence of acute exacerbation today. - Continue Lasix20 mg po daily. - Dr Toni Painter, [facility], is his primary red leader. - Echo in 04/2021 with EF 55-60%, severely enlarged left atrium, valve gradients of prosthetic valves wnl. (5) Acute on chronic kidney failure: Plan: Unclear diagnosis of this previously. Cr appears to be at baseline. (6) History of atrial fibrillation: Plan: - NSR today. - Continue sotalol, Coumadin. -Given very intermittent 2nd degree HB will consult cardiology regarding his sotalol dosing (7) History of aortic valve replacement: Plan: - Follows with Dr. Toni Painter with [facility] cardiology. - On Coumadin, 8 mg Sunday and Sunday, 6 mg all other days per rx filled 08/29. states she accidentally gave him 12 mg of Coumadin on day of admission - INR 3.2 (suspect from previously increased dose), continue on his usual dose and check INR daily (8) History of mitral valve replacement: Plan: - As above. (9) Coronary artery disease: Plan: - Continue lasix, statin, Coumadin. (10) Moderate obstructive sleep apnea: Plan: - No longer uses CPAP. (11) Rotator cuff tear: Plan: - Bilateral, chronic, R worse than L. Not considered a candidate for surgical intervention. - Continue with Tylenol, diclofenac gel, lidocaine patches prn for symptomatic relief. Plan: VTE Prophylaxis - SCDs, Coumadin for DVT ppx. Code - DNR/DNI Diet - Low Na Disposition - medically stable for discharge pending placement, remain on telemetry due to intermittent HB on monitor Admission and Anticipated Discharge Date Admission Date: September 14, 2021 Subjective Started with some diarrhea. Generalized weakness remains. Intermittent coughing just started. Otherwise doing well without any fever or chills. Eating and drinking well. Review of Systems Review of Systems: All systems reviewed & are unremarkable except as noted in Subjective Physical Exam Constitutional: WD/WN, vitals as above ENMT: external ear and nose normal, oropharynx normal Respiratory: normal respiratory effort, lungs clear to auscultation Cardiovascular: Rate/Rhythm: regular rhythm and + bradycardic Heart Sounds: no murmur Extremities: normal capillary refill; no calf tenderness and no pedal edema Gastrointestinal (Abdomen): Percussion/Palpation: abdomen soft; abdomen nontender Musculoskeletal: no cyanosis or clubbing, extremities motor strength 5/5 Skin: no rashes, warm and dry Neurologic: moves all extremities and awake; not confused Psychiatric: A+Ox3, euthymic affect Results & Data Results & Data ([facility]) Vital Signs (Past 12 Hours) Vital Signs Temp Pulse Pulse Resp BP BP Pulse Ox 09/15/21 16:42 58 L 09/15/21 15:09 36.5 C 60 20 107/62 98 09/15/21 11:42 36.8 C 52 L 20 127/69 95 09/15/21 07:20 52 L 09/15/21 06:42 36.5 C 96 H 20 117/68 98 PG Care Time/CCT Total # of Minutes Spent Total Time Spent with Patient: Total time spent is greater than 50% in coordination of care (as documented) at patient's floor/unit and/or counseling patient: Coding Level of Care Code 70628 Subseq Hosp Care Lvl 1 Diagnoses COVID-19 U07.1 Generalized weakness R53.1 Elevated troponin R77.8 (HFpEF) heart failure with preserved ejection fraction I50.30 Acute on chronic kidney failure N17.9; N18.9 History of atrial fibrillation Z86.79 History of aortic valve replacement Z95.2 History of mitral valve replacement Z95.2 Coronary artery disease I25.10 Moderate obstructive sleep apnea G47.33 Rotator cuff tear M75.100
[2021-09-15] MEDS: ACETAMINOPHEN 500 MG TAB PO PRN (20:21)
[2021-09-15] MEDS: ATORVASTATIN 20 MG TAB PO SCH (20:21)
[2021-09-16 08:42] LABS: INR 4.3 (0.9-1.1); Prothrombin Time 42.7 Seconds (9.0-12.0)
[2021-09-16] MEDS: FUROSEMIDE 20 MG TAB PO SCH (09:26)
[2021-09-16] MEDS: POTASSIUM CHLORIDE PWD 20 MEQ PACK PO SCH (09:26)
[2021-09-16] MEDS: guaiFENesin 600 MG TABCR PO PRN (09:26)
[2021-09-16] MEDS: SOTALOL HCL 80 MG TAB PO SCH (09:27)
--- NOTE | 2021-09-16 11:41 | Cardiology Progress Note ---
Date of Service September 16, 2021 Assessment & Plan (1) Sinus bradycardia: (2) History of atrial fibrillation: (3) COVID-19 virus infection: (4) (HFpEF) heart failure with preserved ejection fraction: Plan: 86-year-old male, assessed in follow up today. Chart and telemetry reviewed. Spoke to patient on the phone. In person examination not performed. -pt describes generalized fatigue. Had his furosemide 20 mg PO at 9:26 am yesterday , but he states he had to use the urinal bottle several times last night. Denies sycopope or near syncope. On telemetry , ongoing sinus bradycardia in the 50s with long first degree block noted. On 09/16/21 at 8:17, had episode of Mobitz type I second degree AVB. Also several brief episodes of blocked PACs. No prolonged pauses or prolong bradycardia. Pulse oximetry 95%, room air. 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 Continue chronic treatment with sotalol 40 mg daily in effort to maintain SR. (2) History of paroxysmal atrial fibrillation Vavular heart disease with mechanical AVR, bio MVR: -goal INR 2.5-3.5. 09/16/21, INR =4.3. Hold coumadin today, 09/17. Repeat INR 09/17 and daily x 3 days. (3) COVID-19 virus infection: -Continue supportive care -CRP trending down, 1.42 on 09/15/21. (4) (HFpEF) heart failure with preserved ejection fraction: -(Stable, most recent outpatient cardiology note records him taking furosemide 40 mg daily, currently plan status is stable on 20 mg p.o. daily Admission and Anticipated Discharge Date Admission Date: September 14, 2021 Results & Data ([facility]) Vital Signs (Past 12 Hours) Vital Signs Temp Pulse Pulse Resp BP Pulse Ox 09/16/21 08:00 63 09/16/21 07:30 36.4 C L 63 16 115/67 95 09/16/21 04:00 36.5 C 56 L 20 124/72 97
[2021-09-16] MEDS: DICLOFENAC SOD 1% GEL 100 GM TUBE EXT PRN (14:03)
[2021-09-16] MEDS ORDERED: WARFARIN SOD 4 MG TAB PO SCH (16:00)
--- NOTE | 2021-09-16 18:46 | Hospitalist Progress Note ---
Date of Service September 16, 2021 Assessment & Plan (1) COVID-19: Plan: - Symptom onset on Saturday 09/09, this is day #7 of symptoms. Mild diarrhea continuing. - Patient received COVID vaccination + booster. - ESR 43, CRP 2.35, procal .07. CRP improving. - Checked with pharmacy and we do not have molnupiravir to give as inpatient. Does not qualify for remdesivir or dexamethasone - medically stable awaiting placement at this time (2) Generalized weakness: Plan: - Secondary to COVID1-9 as above - PT/OT to evaluate and treat. -recommend rehab (3) Elevated troponin: Plan: - High sensitive troponin 61.9, repeat 56.2 - With known coronary artery disease, shortness of breath but without chest pain, palpitations, diaphoresis. EKG without specific ST segment/T wave changes--> suspect secondary to myocardial demand ischemia (4) (HFpEF) heart failure with preserved ejection fraction: Plan: - No evidence of acute exacerbation today. - Continue Lasix20 mg po daily. - Dr Toni Painter, [facility], is his primary radio technician. - Echo in 04/2021 with EF 55-60%, severely enlarged left atrium, valve gradients of prosthetic valves wnl. (5) Acute on chronic kidney failure: Plan: Unclear diagnosis of this previously. Cr appears to be at baseline. (6) History of atrial fibrillation: Plan: - NSR today. - Continue sotalol, Coumadin. - Appreciate cardiology management. Continue sotalol and warfarin on hold currently due to elevated INR. (7) History of aortic valve replacement: Plan: - Follows with Dr. Toni Painter with [facility] cardiology. (8) History of mitral valve replacement: Plan: - As above. (9) Coronary artery disease: Plan: - Continue lasix, statin, Coumadin. (10) Moderate obstructive sleep apnea: Plan: - No longer uses CPAP. (11) Rotator cuff tear: Plan: - Bilateral, chronic, R worse than L. Not considered a candidate for surgical intervention. - Continue with Tylenol, diclofenac gel, lidocaine patches prn for symptomatic relief. Plan: VTE Prophylaxis - SCDs, Coumadin for DVT ppx. Code - DNR/DNI Diet - Low Na Disposition - medically stable for discharge pending placement, telemetry can be discontinued Admission and Anticipated Discharge Date Admission Date: September 14, 2021 Subjective No significant change in symptoms since yesterday. Mild diarrhea ongoing. Main symptom of generalized weakness. [facility] unable to take him until September 20 but a lso applying to [facility]. INR continues to increase despite his usual 6mg PO daily dosing. Cardiology already appropriately held warfarin dosing earlier today. Updated his over the phone who also tested positive for COVID-19 today. Review of Systems Review of Systems: All systems reviewed & are unremarkable except as noted in Subjective Physical Exam Constitutional: WD/WN, vitals as above ENMT: external ear and nose normal, oropharynx normal Respiratory: normal respiratory effort, lungs clear to auscultation Cardiovascular: Rate/Rhythm: regular rhythm and + bradycardic Heart Sounds: no murmur Extremities: normal capillary refill; no calf tenderness and no pedal edema Gastrointestinal (Abdomen): Percussion/Palpation: abdomen soft; abdomen nontender Musculoskeletal: no cyanosis or clubbing, extremities motor strength 5/5 Skin: no rashes, warm and dry Neurologic: moves all extremities and awake; not confused Psychiatric: A+Ox3, euthymic affect Results & Data Results & Data ([facility]) Vital Signs (Past 12 Hours) Vital Signs Temp Pulse Pulse Resp BP Pulse Ox 09/16/21 17:00 54 L 09/16/21 16:00 36.7 C 63 20 136/78 93 09/16/21 11:00 36.5 C 61 18 138/67 96 09/16/21 08:00 63 09/16/21 07:30 36.4 C L 63 16 115/67 95 PG Care Time/CCT Total # of Minutes Spent Total Time Spent with Patient: Total time spent is greater than 50% in coordination of care (as documented) at patient's floor/unit and/or counseling patient: Coding Level of Care Code 01855 Subseq Hosp Care Lvl 1 Diagnoses COVID-19 U07.1 Generalized weakness R53.1 Elevated troponin R77.8 (HFpEF) heart failure with preserved ejection fraction I50.30 Acute on chronic kidney failure N17.9; N18.9 History of atrial fibrillation Z86.79 History of aortic valve replacement Z95.2 History of mitral valve replacement Z95.2 Coronary artery disease I25.10 Moderate obstructive sleep apnea G47.33 Rotator cuff tear M75.100
[2021-09-16] MEDS: ATORVASTATIN 20 MG TAB PO SCH (19:13)
[2021-09-17] MEDS: ACETAMINOPHEN 500 MG TAB PO PRN (02:50)
[2021-09-17] MEDS: SOTALOL HCL 80 MG TAB PO SCH (08:56)
[2021-09-17] MEDS: FUROSEMIDE 20 MG TAB PO SCH (08:56)
[2021-09-17] MEDS: POTASSIUM CHLORIDE PWD 20 MEQ PACK PO SCH (08:57)
[2021-09-17 10:33] LABS: INR 3.7 (0.9-1.1)
[2021-09-17] MEDS: WARFARIN SOD 6 MG TAB PO SCH (16:24)
--- NOTE | 2021-09-17 18:44 | Hospitalist Progress Note ---
Date of Service September 17, 2021 Assessment & Plan (1) COVID-19: Plan: - Symptom onset on Saturday 09/09, this is day #8 of symptoms. Slowly improving daily. - Patient received COVID vaccination + booster. - ESR 43, CRP 2.35, procal .07. CRP improving. - Checked with pharmacy and we do not have molnupiravir to give as inpatient. Does not qualify for remdesivir or dexamethasone - medically stable awaiting placement at this time (2) Generalized weakness: Plan: - Secondary to COVID-19 as above - PT/OT to evaluate and treat. -recommend rehab (3) Elevated troponin: Plan: - High sensitive troponin 61.9, repeat 56.2 - With known coronary artery disease, shortness of breath but without chest pain, palpitations, diaphoresis. EKG without specific ST segment/T wave changes--> suspect secondary to myocardial demand ischemia (4) (HFpEF) heart failure with preserved ejection fraction: Plan: - No evidence of acute exacerbation today. - Continue Lasix20 mg po daily. - Dr Toni Painter, [facility], is his primary student union consultant. - Echo in 04/2021 with EF 55-60%, severely enlarged left atrium, valve gradients of prosthetic valves wnl. (5) Acute on chronic kidney failure: Plan: Unclear diagnosis of this previously. Cr appears to be at baseline. (6) History of atrial fibrillation: Plan: - RRR tday - Continue sotalol, Coumadin. - Appreciate cardiology management. Continue sotalol and warfarin on hold currently due to elevated INR. (7) History of aortic valve replacement: Plan: - Follows with Dr. Toni Painter with [facility] cardiology. (8) History of mitral valve replacement: Plan: - As above. (9) Coronary artery disease: Plan: - Continue lasix, statin, Coumadin. (10) Moderate obstructive sleep apnea: Plan: - No longer uses CPAP. (11) Rotator cuff tear: Plan: - Bilateral, chronic, R worse than L. Not considered a candidate for surgical intervention. - Continue with Tylenol, diclofenac gel, lidocaine patches prn for symptomatic relief. Plan: VTE Prophylaxis - SCDs, Coumadin for DVT ppx. Code - DNR/DNI Diet - Low Na Disposition - medically stable for discharge pending placement, telemetry can be discontinued Admission and Anticipated Discharge Date Admission Date: September 14, 2021 Subjective Making slow improvements daily. No over bleeding noted. INR 3.7 today. Review of Systems Review of Systems: All systems reviewed & are unremarkable except as noted in Subjective Physical Exam Constitutional: WD/WN, vitals as above Respiratory: normal respiratory effort, lungs clear to auscultation Cardiovascular: Rate/Rhythm: regular rhythm and + bradycardic Heart Sounds: no murmur Skin: no rashes, warm and dry Neurologic: moves all extremities and awake; not confused Psychiatric: A+Ox3, euthymic affect Results & Data Results & Data ([facility]) Vital Signs (Past 12 Hours) Vital Signs Temp Pulse Pulse Resp BP Pulse Ox 09/17/21 16:15 62 09/17/21 15:30 36.6 C 61 18 124/65 96 09/17/21 11:09 36.6 C 65 18 123/73 95 09/17/21 09:57 53 L 09/17/21 08:10 36.6 C 65 18 128/71 97 PG Care Time/CCT Total # of Minutes Spent Total Time Spent with Patient: Total time spent is greater than 50% in coordination of care (as documented) at patient's floor/unit and/or counseling patient: Coding Level of Care Code 09932 Subseq Hosp Care Lvl 1 Diagnoses COVID-19 U07.1 Generalized weakness R53.1 Elevated troponin R77.8 (HFpEF) heart failure with preserved ejection fraction I50.30 Acute on chronic kidney failure N17.9; N18.9 History of atrial fibrillation Z86.79 History of aortic valve replacement Z95.2 History of mitral valve replacement Z95.2 Coronary artery disease I25.10 Moderate obstructive sleep apnea G47.33 Rotator cuff tear M75.100
[2021-09-17] MEDS: ATORVASTATIN 20 MG TAB PO SCH (21:20)
[2021-09-18 00:39] LABS: BUN Creatinine Ratio 17.5 (10-20); Calcium 8.7 mg/dl (8.5-10.1); Creatinine Clr Calc Pharmacy 43.4 ml/min; Est GFR (African American) 54.1 ml/min; Est GFR (Non-African American) 46.7 ml/min; Magnesium 1.7 mg/dl (1.7-2.4); Potassium 3.9 mmol/L (3.5-5.1)
[2021-09-18] MEDS: SOTALOL HCL 80 MG TAB PO SCH (08:17)
[2021-09-18] MEDS: FUROSEMIDE 20 MG TAB PO SCH (08:18)
[2021-09-18] MEDS: POTASSIUM CHLORIDE PWD 20 MEQ PACK PO SCH (08:19)
[2021-09-18] MEDS: ACETAMINOPHEN 500 MG TAB PO PRN ×2 (08:20→20:42)
[2021-09-18 09:32] LABS: INR 2.6 (0.9-1.1); Prothrombin Time 26.5 Seconds (9.0-12.0)
[2021-09-18] MEDS: WARFARIN SOD 6 MG TAB PO SCH (16:05)
[2021-09-18] MEDS: ATORVASTATIN 20 MG TAB PO SCH (20:38)
[2021-09-18] MEDS ORDERED: MELATONIN 3 MG TAB PO PRN (23:45)
--- NOTE | 2021-09-19 06:16 | Hospitalist Progress Note ---
Date of Service September 18, 2021 Assessment & Plan (1) COVID-19: Plan: - Symptom onset on Saturday 09/09, this is day #8 of symptoms. Slowly improving daily. - Patient received COVID vaccination + booster. - ESR 43, CRP 2.35, procal .07. CRP improving. - Checked with pharmacy and we do not have molnupiravir to give as inpatient. Does not qualify for remdesivir or dexamethasone - medically stable awaiting placement at this time - given the patient just appears less spritely today will repeat his labs with inflammatory markers tomorrow. (2) Generalized weakness: Plan: - Secondary to COVID-19 as above - PT/OT to evaluate and treat. -recommend rehab (3) Elevated troponin: Plan: - High sensitive troponin 61.9, repeat 56.2 - With known coronary artery disease, shortness of breath but without chest pain, palpitations, diaphoresis. EKG without specific ST segment/T wave changes--> suspect secondary to myocardial demand ischemia (4) (HFpEF) heart failure with preserved ejection fraction: Plan: - No evidence of acute exacerbation today. - Continue Lasix20 mg po daily. - Dr Toni Painter, [facility], is his primary network programmer. - Echo in 04/2021 with EF 55-60%, severely enlarged left atrium, valve gradients of prosthetic valves wnl. (5) Acute on chronic kidney failure: Plan: Unclear diagnosis of this previously. Cr appears to be at baseline. (6) History of atrial fibrillation: Plan: - RRR today - Continue sotalol, Coumadin. - Appreciate cardiology management. Continue sotalol. Restart warfarin today at usual home dosing, INR 2.6 (7) History of aortic valve replacement: Plan: - Follows with Dr. Toni Painter with [facility] cardi[facility]. (8) History of mitral valve replacement: Plan: - As above. (9) Coronary artery disease: Plan: - Continue lasix, statin, Coumadin. (10) Moderate obstructive sleep apnea: Plan: - No longer uses CPAP. (11) Rotator cuff tear: Plan: - Bilateral, chronic, R worse than L. Not considered a candidate for surgical intervention. - Continue with Tylenol, diclofenac gel, lidocaine patches prn for symptomatic relief. Plan: VTE Prophylaxis - SCDs, Coumadin for DVT ppx. Code - DNR/DNI Diet - Low Na Disposition - medically stable for discharge pending placement Admission and Anticipated Discharge Date Admission Date: September 14, 2021 Subjective Having some left shoulder pain today. He has had a rotator cuff injury to his right shoulder for over 10 years and thinks he slept on it wrong last night. No falls onto his shoulder. Otherwise from a COVID stand point other than generalized weakness he feels he is slowly improving. Review of Systems Review of Systems: All systems reviewed & are unremarkable except as noted in Subjective Physical Exam Constitutional: WD/WN, vitals as above Respiratory: normal respiratory effort, lungs clear to auscultation Cardiovascular: Rate/Rhythm: regular rhythm and + bradycardic Heart Sounds: no murmur Musculoskeletal: Shoulder: + limited ROM (Unablt to lift right shoulder > 90 degrees flexion but this is chronic) Skin: no rashes, warm and dry Neurologic: moves all extremities and awake; not confused Psychiatric: A+Ox3, euthymic affect Results & Data Results & Data ([facility]) Vital Signs (Past 12 Hours) Vital Signs Temp Pulse Pulse Resp BP BP Pulse Ox 09/18/21 11:41 36.7 C 58 L 18 120/72 95 09/18/21 07:49 67 09/18/21 07:36 36.9 C 62 18 152/73 H 95 09/18/21 04:00 36.6 C 64 18 148/64 H 96 PG Care Time/CCT Total # of Minutes Spent Total Time Spent with Patient: Total time spent is greater than 50% in coordination of care (as documented) at patient's floor/unit and/or counseling patient: Coding Level of Care Code 56481 Subseq Hosp Care Lvl 1 Diagnoses COVID-19 U07.1 Generalized weakness R53.1 Elevated troponin R77.8 (HFpEF) heart failure with preserved ejection fraction I50.30 Acute on chronic kidney failure N17.9; N18.9 History of atrial fibrillation Z86.79 History of aortic valve replacement Z95.2 History of mitral valve replacement Z95.2 Coronary artery disease I25.10 Moderate obstructive sleep apnea G47.33 Rotator cuff tear M75.100
[2021-09-19 08:28] LABS: Basophils # (auto) 0.01 K/uL (0-0.2); Basophils % (auto) 0.1 %; Eosinophils # (auto) 0.02 K/uL (0-0.5); Eosinophils % (auto) 0.2 %; Hematocrit (blood only) 35.6 % (42-52); Immature Granulocytes # (auto) 0.03 K/uL (0.00-0.02); Immature Granulocytes % (auto) 0.3 %; Lymphocytes % (auto) 12.7 %; Mean Corpuscular Hemoglobin 30.5 pg (25-34); Mean Corpuscular Hgb Conc 33.7 g/dL (32-36); Mean Corpuscular Volume 90.6 fL (80-100); Mean Platelet Volume 10.6 fL (7.4-10.4); Monocytes # (auto) 2.62 K/uL (0.11-0.59); Monocytes % (auto) 25.6 %; Neutrophils # (auto) 6.24 K/uL (1.4-6.5); Neutrophils % (auto) 61.1 %; Platelet Count 234 K/uL (130-400); RDW Standard Deviation 47.1 fL (36.4-46.3); Red Blood Count 3.93 M/uL (4.7-6.1); White Blood Count 10.22 K/uL (4.8-10.8)
[2021-09-19] MEDS: FUROSEMIDE 20 MG TAB PO SCH (08:28)
[2021-09-19] MEDS: SOTALOL HCL 80 MG TAB PO SCH (08:29)
[2021-09-19] MEDS: POTASSIUM CHLORIDE PWD 20 MEQ PACK PO SCH (08:29)
[2021-09-19 08:31] LABS: INR 2.7 (0.9-1.1); Prothrombin Time 27.4 Seconds (9.0-12.0)
[2021-09-19 08:42] LABS: BUN Creatinine Ratio 17.2 (10-20); C Reactive Protein 21.8 mg/dl (0-0.5); Calcium 8.7 mg/dl (8.5-10.1); Creatinine Clr Calc Pharmacy 46.3 ml/min; Est GFR (African American) 58.8 ml/min; Est GFR (Non-African American) 50.7 ml/min
--- NOTE | 2021-09-19 15:42 | Hospitalist Progress Note ---
Date of Service September 19, 2021 Assessment & Plan (1) COVID-19: Plan: - Symptom onset on Saturday 09/09, this is day #10 of symptoms. CRP increasing however no lymphopenia and suspect not related to COVID. Possible CRP related to pseudogout. We will continue to serially examine his right knee to establish this. - Patient received COVID vaccination + booster. - ESR 43, CRP 2.35, procal .07 on admission. - Checked with pharmacy and we do not have molnupiravir to give as inpatient. Does not qualify for remdesivir or dexamethasone - medically stable awaiting placement at this time. planning on discharge to [facility] tomorrow. (2) Biceps femoris tendon strain at knee: Plan: Use voltaren gel on this area. Will serially examine knee to make sure we are not missing pseudogout (previously diagnosed with June). If worsening knee effusion tomorrow will start on prednisone. (3) Generalized weakness: Plan: - Secondary to COVID-19 as above - PT/OT to evaluate and treat. -recommend rehab (4) Elevated troponin: Plan: - High sensitive troponin 61.9, repeat 56.2 - With known coronary artery disease, shortness of breath but without chest pain, palpitations, diaphoresis. EKG without specific ST segment/T wave changes--> suspect secondary to myocardial demand ischemia (5) (HFpEF) heart failure with preserved ejection fraction: Plan: - No evidence of acute exacerbation today. - Continue Lasix20 mg po daily. - Dr Toni Painter, [facility], is his primary central supply technician. - Echo in 04/2021 with EF 55-60%, severely enlarged left atrium, valve gradients of prosthetic valves wnl. (6) Acute on chronic kidney failure: Plan: Unclear diagnosis of this previously. Cr appears to be at baseline. (7) History of atrial fibrillation: Plan: - RRR today - Continue sotalol, Coumadin. - Appreciate cardiology management. Continue sotalol. INR 2.7. Will remain on his usual warfarin dosing with PTINR daily. (8) History of aortic valve replacement: Plan: - Follows with Dr. Toni Painter with [facility] cardiology. (9) History of mitral valve replacement: Plan: - As above. (10) Coronary artery disease: Plan: - Continue lasix, statin, Coumadin. (11) Moderate obstructive sleep apnea: Plan: - No longer uses CPAP. (12) Rotator cuff tear: Plan: - Bilateral, chronic, R worse than L. Not considered a candidate for surgical intervention. - Continue with Tylenol, diclofenac gel, lidocaine patches prn for symptomatic relief. Plan: VTE Prophylaxis - SCDs, Coumadin for DVT ppx. Code - DNR/DNI Diet - Low Na Disposition - medically stable for discharge pending placement, planning on discharge to [facility] tomorrow Admission and Anticipated Discharge Date Admission Date: September 14, 2021 Subjective Shoulder pain from yesterday completely resolved. Reports no significant COVID symptoms and diarrhea has resolved. No shortness of breath. Mild nonproductive cough. His main complaint today is right knee pain after physical therapy earlier in the day. Of note he was diagnosed with pseudogout on his previous admission which was successfully treated with prednisone. Review of Systems Review of Systems: All systems reviewed & are unremarkable except as noted in Subjective Physical Exam Constitutional: WD/WN, vitals as above ENMT: external ear and nose normal, oropharynx normal Respiratory: normal respiratory effort, lungs clear to auscultation Cardiovascular: Rate/Rhythm: regular rhythm and + bradycardic Heart Sounds: no murmur Extremities: normal capillary refill; no calf tenderness and no pedal edema Gastrointestinal (Abdomen): Percussion/Palpation: abdomen soft; abdomen nontender Musculoskeletal: Shoulder: + limited ROM (Unablt to lift right shoulder > 90 degrees flexion but this is chronic) Knee: + effusion (mild); normal ROM of knee and no joint line tenderness Pain on palpation over lateral distal hamstring tendon Skin: no rashes, warm and dry Neurologic: moves all extremities and awake; not confused Psychiatric: A+Ox3, euthymic affect Results & Data Results & Data ([facility]) Vital Signs (Past 12 Hours) Vital Signs Temp Pulse Pulse Resp BP Pulse Ox 09/19/21 14:46 36.8 C 61 18 131/72 96 09/19/21 11:07 36.8 C 63 18 111/70 96 09/19/21 06:27 60 09/19/21 06:02 36.7 C 64 18 137/75 95 09/19/21 04:05 36.8 C 63 20 145/70 H 96 PG Care Time/CCT Total # of Minutes Spent Total Time Spent with Patient: Total time spent is greater than 50% in coordination of care (as documented) at patient's floor/unit and/or counseling patient: Coding Level of Care Code 96667 Subseq Hosp Care Lvl 2 Diagnoses COVID-19 U07.1 Generalized weakness R53.1 Elevated troponin R77.8 (HFpEF) heart failure with preserved ejection fraction I50.30 Acute on chronic kidney failure N17.9; N18.9 History of atrial fibrillation Z86.79 History of aortic valve replacement Z95.2 History of mitral valve replacement Z95.2 Coronary artery disease I25.10 Moderate obstructive sleep apnea G47.33 Rotator cuff tear M75.100 Biceps femoris tendon strain at knee S86.819A
[2021-09-19] MEDS: WARFARIN SOD 4 MG TAB PO SCH (15:59)
[2021-09-19] MEDS: ACETAMINOPHEN 500 MG TAB PO PRN (16:33)
[2021-09-19] MEDS ORDERED: DICLOFENAC SOD 1% GEL 100 GM TUBE EXT PRN (16:44)
[2021-09-19] MEDS: ATORVASTATIN 20 MG TAB PO SCH (20:08)
[2021-09-20 07:18] LABS: INR 3.3 (0.9-1.1); Prothrombin Time 33.2 Seconds (9.0-12.0)
[2021-09-20] MEDS: DICLOFENAC SOD 1% GEL 100 GM TUBE EXT PRN (07:57)
[2021-09-20] MEDS: guaiFENesin 600 MG TABCR PO PRN (07:59)
[2021-09-20] MEDS: POTASSIUM CHLORIDE PWD 20 MEQ PACK PO SCH (08:00)
[2021-09-20] MEDS: SOTALOL HCL 80 MG TAB PO SCH (08:00)
[2021-09-20] MEDS: FUROSEMIDE 20 MG TAB PO SCH (08:01)
[2021-09-20] MEDS: WARFARIN SOD 6 MG TAB PO SCH (15:42)
--- NOTE | 2021-09-20 17:02 | Hospitalist Progress Note ---
Date of Service September 20, 2021 Assessment & Plan (1) COVID-19: Plan: - Symptom onset on Saturday 09/09, this is day #10 of symptoms. CRP increasing however no lymphopenia and suspect not related to COVID. Possible CRP related to pseudogout. We will continue to serially examine his right knee to establish this. - Patient received COVID vaccination + booster. - ESR 43, CRP 2.35, procal .07 on admission. - Checked with pharmacy and we do not have molnupiravir to give as inpatient. Does not qualify for remdesivir or dexamethasone - medically stable awaiting placement at this time. planning on discharge to [facility] when bed available (2) Plantar fasciitis of left foot: Plan: Use Voltaren gel on area of pain. If persistent consider workup/meds for restless leg syndrome (3) Biceps femoris tendon strain at knee: Plan: Resolved Will serially examine knee to make sure we are not missing pseudogout (previously diagnosed with June). If worsening knee pain consider short course of prednisone for pseudogout (4) Generalized weakness: Plan: - Secondary to COVID-19 as above - PT/OT to evaluate and treat. -recommend rehab (5) Elevated troponin: Plan: - High sensitive troponin 61.9, repeat 56.2 - With known coronary artery disease, shortness of breath but without chest pain, palpitations, diaphoresis. EKG without specific ST segment/T wave changes--> suspect secondary to myocardial demand ischemia (6) (HFpEF) heart failure with preserved ejection fraction: Plan: - No evidence of acute exacerbation today. - Continue Lasix20 mg po daily. - Dr Toni Painter, [facility], is his primary supervisor model making. - Echo in 04/2021 with EF 55-60%, severely enlarged left atrium, valve gradients of prosthetic valves wnl. (7) Acute on chronic kidney failure: Plan: Unclear diagnosis of this previously. Cr appears to be at baseline. (8) History of atrial fibrillation: Plan: - RRR today - Continue sotalol, Coumadin. - Appreciate cardiology management. Continue sotalol. INR 3.3 Will reduce his usual doses to 4mg PO daily as persistently INR keeps increasing on his usual doses. (9) History of aortic valve replacement: Plan: - Follows with Dr. Toni Painter with [facility]. (10) History of mitral valve replacement: Plan: - As above. (11) Coronary artery disease: Plan: - Continue lasix, statin, Coumadin. (12) Moderate obstructive sleep apnea: Plan: - No longer uses CPAP. (13) Rotator cuff tear: Plan: - Bilateral, chronic, R worse than L. Not considered a candidate for surgical intervention. - Continue with Tylenol, diclofenac gel, lidocaine patches prn for symptomatic relief. Plan: VTE Prophylaxis - SCDs, Coumadin for DVT ppx. Code - DNR/DNI Diet - Low Na Disposition - medically stable for discharge pending placement, planning on discharge to [facility] when bed available Admission and Anticipated Discharge Date Admission Date: September 14, 2021 Subjective Right knee pain from yesterday now completely resolved. Now main complaint is left foot pain - he describes this as nerve pain. Usually helped with Voltaren gel. It is worse at nighttime and when I describe restless leg syndrome to him he feels this is similar. No shortness of breath, cough or diarrhea. Review of Systems Review of Systems: All systems reviewed & are unremarkable except as noted in Subjective Physical Exam Constitutional: WD/WN, vitals as above ENMT: external ear and nose normal, oropharynx normal Respiratory: normal respiratory effort, lungs clear to auscultation Cardiovascular: Rate/Rhythm: regular rhythm and + bradycardic Heart Sounds: no murmur Extremities: normal capillary refill; no calf tenderness and no pedal edema Gastrointestinal (Abdomen): Percussion/Palpation: abdomen soft; abdomen nontender Musculoskeletal: no cyanosis or clubbing, extremities motor strength 5/5 Shoulder: + limited ROM (Unablt to lift right shoulder > 90 degrees flexion but this is chronic) Knee: + effusion (mild); normal ROM of knee and no joint line tenderness Left plantar foot pain on palpation Skin: no rashes, warm and dry Neurologic: moves all extremities and awake; not confused Psychiatric: A+Ox3, euthymic affect Results & Data Results & Data ([facility]) Vital Signs (Past 12 Hours) Vital Signs Temp Pulse Pulse Resp BP BP Pulse Ox 09/20/21 15:43 36.9 C 70 16 128/63 96 09/20/21 07:47 36.9 C 68 16 136/62 132/69 94 09/20/21 06:13 68 PG Care Time/CCT Total # of Minutes Spent Total Time Spent with Patient: Total time spent is greater than 50% in coordination of care (as documented) at patient's floor/unit and/or counseling patient: Coding Level of Care Code 51400 Subseq Hosp Care Lvl 1 Diagnoses COVID-19 U07.1 Biceps femoris tendon strain at knee S86.819A Generalized weakness R53.1 Elevated troponin R77.8 (HFpEF) heart failure with preserved ejection fraction I50.30 Acute on chronic kidney failure N17.9; N18.9 History of atrial fibrillation Z86.79 History of aortic valve replacement Z95.2 History of mitral valve replacement Z95.2 Coronary artery disease I25.10 Moderate obstructive sleep apnea G47.33 Rotator cuff tear M75.100 Plantar fasciitis of left foot M72.2
[2021-09-20] MEDS: DICLOFENAC SOD 1% GEL 100 GM TUBE EXT SCH ×2 (17:22→21:56)
[2021-09-20] MEDS: ACETAMINOPHEN 500 MG TAB PO PRN (21:55)
[2021-09-20] MEDS: ATORVASTATIN 20 MG TAB PO SCH (21:55)
[2021-09-21] MEDS: FUROSEMIDE 20 MG TAB PO SCH (08:42)
[2021-09-21] MEDS: SOTALOL HCL 80 MG TAB PO SCH (08:42)
[2021-09-21] MEDS: POTASSIUM CHLORIDE PWD 20 MEQ PACK PO SCH (08:43)
[2021-09-21] MEDS: DICLOFENAC SOD 1% GEL 100 GM TUBE EXT SCH ×2 (08:45→14:44)
[2021-09-21 09:10] LABS: Prothrombin Time 39.2 Seconds (9.0-12.0)
--- NOTE | 2021-09-21 14:03 | Discharge Summary ---
Date of Service September 21, 2021 Admission HPI Per Admitting Provider Mr. Zhou is an 86-year-old male with past medical history of aortic and mechanical mitral valve replacement (on Coumadin), A. fib, CAD, HLD, HTN, and ALEXANDRO who presents from home today with cough and generalized weakness. On Sunday, patient began experiencing sneezing, dry cough, and fatigue. The symptoms persisted over the weekend and on Sunday, he developed bilateral lower extremity weakness and had a fever of 101. Patient has been bedbound for the past 24 hours due to the weakness and has been struggling to take care of him, which prompted them to present to the ED today for further evaluation. His cough has been dry with minimal sputum production on occasion and causes him minimal shortness of breath with conversation or ambulation. Patient has otherwise been in his normal state of health, no myalgias, night sweats, chest pain, palpitations, dyspnea at rest, abdominal pain, nausea, vomiting, diarrhea, constipation, loss of sensation, numbness/tingling, urinary retention, urinary or fecal incontinence. In ED, patient is bradycardic with heart rate in 50s, otherwise vital signs within normal limits and stable, SpO2 > 94% and afebrile in ED. Routine labs and imaging significant for COVID-19 positive, ESR 43, CRP 2.35. Procalcitonin 0.07. INR 2.2. BUN 31, creatinine 1.49 (baseline ~1.3-1.4). Initial high sensitivity troponin 61.9, 2 hour repeat 56.2. CXR showed decreased inspiratory effort with otherwise no acute chest disease. Blood cultures pending. Patient has received his COVID vaccination as well as booster. No sick contacts at home or in the community that he recalls being exposed to. Principal Diagnosis 1. COVID-19 infection with fairly mild URI symptoms 2. Elevated troponin d/t myocardial demand ischemia 3. Supratherapeutic INR 4. Generalized weakness/debility Discharge Exam GENERAL: 86 yo Well-developed, well-nourished elderly wm. NAD. LUNGS: Clear to auscultation bilaterally. No w/r/r CARDIOVASCULAR: Regular rate and rhythm with midsystolic click noted ABDOMEN: Soft, non-tender and non-distended. BS normal x 4 quad. EXTREMITIES: No edema. Non-tender. Peripheral pulses +2/4. NEUROLOGIC: A&O x3. PSYCHIATRIC: Cooperative. Appropriate mood and affect. SKIN: Warm, dry, intact. No rashes or lesions. Discharge Data Allergies Allergy/AdvReac Type Severity Reaction Status Date / Time Penicillins Allergy Mild RASH Verified 07/12/21 15:54 celecoxib [From Celebrex] Allergy Unknown Verified 07/12/21 15:54 cyclobenzaprine Allergy Unknown Verified 07/12/21 15:54 [From Flexeril] simvastatin AdvReac Mild MUSCLE PAIN Verified 07/12/21 15:54 Consultations 09/12/21 12:01 ED Decision to Admit Stat 09/15/21 14:07 Consult Cardiology Routine Ordered Studies Chest X-Ray 09/12/21 09:17 XR chest 1V portable CLINICAL HISTORY: Fever. COMPARISON STUDY: 07/16/2021 TECHNIQUE: 1 view of the chest FINDINGS: Single frontal view of the chest demonstrates the heart size to again be mildly enlarged status post previous cardiothoracic surgery for valve replacement. The re is a decreased inspiratory effort with elevation of the hemidiaphragms and crowding of the bronchovascular markings at the lung bases and centrally. The lungs are clear of alveolar opacities. There is no evidence for pleural effusion. There is no evidence for vascular congestion. There is no acute osseous pathology. IMPRESSION: 1. There is a decreased inspiratory effort with otherwise no acute chest disease. ACT 112: Negative or not required by law. Electronically signed by: Zion Urias M.D. 09/12/2021 9:57 AM INR 5/4=4.0 Hospital Course (1) COVID-19: - Symptom onset on Saturday 09/09, this is day #11 of symptoms. CRP increasing however no lymphopenia and suspect not related to COVID. ?CRP related to pseudogout. - Patient received COVID vaccination + booster. - ESR 43, CRP 2.35, procal .07 on admission. - Checked with pharmacy and we do not have molnupiravir to give as inpatient. Does not qualify for remdesivir or dexamethasone - medically stable awaiting rehab (2) Plantar fasciitis of left foot: -Use Voltaren gel on area of pain. -If persistent consider workup/meds for restless leg syndrome (3) Biceps femoris tendon strain at knee: Resolved (4) Generalized weakness: - Secondary to COVID-19 as above - PT/OT to evaluate and treat. - recommending rehab (5) Elevated troponin: - High sensitive troponin 61.9, repeat 56.2 - With known coronary artery disease, shortness of breath but without chest pain, palpitations, diaphoresis. EKG without specific ST segment/T wave changes--> suspect secondary to myocardial demand ischemia (6) (HFpEF) heart failure with preserved ejection fraction: - No evidence of acute exacerbation today. - Continue Lasix20 mg po daily. - Dr Toni Painter, [facility], is his primary windshield installer. - Echo in 04/2021 with EF 55-60%, severely enlarged left atrium, valve gradients of prosthetic valves wnl. (7) Acute on chronic kidney failure: Unclear diagnosis of this previously. Cr appears to be at baseline. (8) History of atrial fibrillation: - RRR today - Appreciate cardiology management. - Continue sotalol. Coumadin dose decreased to 4mg PO daily as persistently INR keeps increasing on his usual doses. * INR elevated to 4.0 on 09/21, will hold today's dose of Coumadin * Repeat INR on 09/22 at [facility] and resume Coumadin if INR <3.5 (9) History of aortic valve replacement: H/o AVR and MVR - Follows with Dr. Toni Painter with [facility] cardi[facility]. (10) Coronary artery disease: - Continue lasix, statin, Coumadin. (11) Moderate obstructive sleep apnea: - No longer uses CPAP. (12) Rotator cuff tear: - Bilateral, chronic, R worse than L. Not considered a candidate for surgical intervention. - Continue with Tylenol, diclofenac gel, lidocaine patches prn for symptomatic relief. At this time, pt is felt to be medically and hemodynamically stable for discharge to rehab. Unfortunately, pt's insurance denied inpatient rehab at [facility] but they would approve SNF for rehab. Case management contacted family, referral sent to [facility], pt accepted and authorization received. Family and patient made aware. Son is to transport. Advised f/u with family PCP upon d/c from SNF. Follow up with established windshield installer in 2 weeks. Above plan of care has been d/w Dr. Poli Pena who has also seen and evaluated this patient prior to discharge. Total Time Total Time Spent Total Time Spent (In Minutes): >30 minutes Discharge Plan Discharge Items Patient Disposition: Transfer [facility] Fac Reason For Visit: WEAKNESS, COUGH, FEVER, SOB Discharge Diagnosis: COVID-19 Infection Generalized weakness Elevated heart enzymes Activity: As commented below Activity Comment: With assist as tolerated Non-emergency contact: Primary Care Provider Call non-emergency contact if: you have any medication questions and your symptoms worsen Follow-up/Referrals: Deric Tello MD [Primary Care Provider] - Diet: Regular and Low Sodium (2gm) Addtl Attending Provider Instructions: You were hospitalized due to generalized weakness and elevated cardiac enzymes which was felt to be related to your infection with COVID-19. Fortunately, your oxygen levels were within normal limits and you did not require treatment for COVID with any medications. You have had some variable readings on your INR readings during your hospital stay which has required us to adjust your dose of Coumadin. Today (09/22) your level is still elevated slightly at 4.0. Your goal INR with your mechanical valve is 2.5-3.5. Your Coumadin dose was cut back to 4mg every day but is currently being held due to your elevated INR. We would recommend holding your dose of Coumadin today (09/22) and rechecking your INR tomorrow (09/23). If it is less than 3.5, you can resume Coumadin at 4mg once per day and continue to monitor INR daily over the next 3 days to ensure stability. Due to your generalized weakness related to your recent illness, physical and occupational therapy is recommending rehabilitation. Unfortunately, your insurance did not approve acute inpatient rehabilitation (i.e. [facility]) but you were approved for rehab at a skilled level. Subsequently, case management has arranged for you to be discharged to [facility] to complete rehab (to improve your strength, gait, transfers, etc.) prior to returning home. It is recommended that you follow up with your primary care provider upon discharge from acute rehab facility. During your stay at rehab, you will be monitored by the healthcare team at the facility. We also advise you to follow up with your established windshield installer in approximately 2 weeks. In the event that you have any nonurgent questions, please feel free to contact the nonemergency number listed on your discharge paperwork. In the event of a medical emergency, call 911. Pending Studies at Discharge: No Stand-Alone Forms: My [facility] Skilled Items Patient informed of condition?: Yes DNR: Yes Discharge Level of Care: Skilled Communicable Disease: No Discharge Prognosis: Stable Lines: None Urinary Catheter: No Medications and DC Order Prescriptions: Continued furosemide 40 mg tablet 20 mg PO QAM RF: 0 atorvastatin 20 mg tablet 20 mg PO HS RF: 0 potassium chloride [Klor-Con] 20 mEq Packet 20 meq PO QAM RF: 0 Ocuvite Adult 50 Plus 250-5-1 mg Capsule 2 cap PO QAM RF: 0 sotalol 80 mg Tablet 40 mg PO QAM RF: 0 warfarin 2 mg tablet 4 - 6 mg PO UD RF: 0 acetaminophen [Tylenol Extra Strength] 500 mg Tablet 1,000 mg PO BID PRN (Reason: Pain) Qty: 30 RF: 0 lidocaine 5 % Adhesive Patch,Medicated 1 patch transdermal QAM Qty: 7 RF: 0 diclofenac sodium [Voltaren Arthritis Pain] 1 % Gel 4 g EXT QID Qty: 1 RF: 0 Discharge Orders: Discharge Order (Routine); Ordered 09/21/21 Ordered By: Lynne Rosenbaum Admission Data Admit Date/Time: 09/14/21 13:42 Attending Provider: Poli Pena Admit Provider: Deb Guzmán Primary Care Provider: Deric Tello Other Providers[facility] Deb Guzmán ; [facility] ; Eugene Chaudhary Other Interventions: Discharge Summary Assessment (RN) Last Done: 09/21/21 14:49 Supervising Physician Co-Signing Physician Notes I supervised Lynne Rosenbaum PA-C on this admission. I interviewed and examined the patient independently of her. The plan is as written in the her note except for any following changes/exceptions: None Stable breathing today. Very deconditioned. Plan for rehab. Coding Level of Care Code D/C DAY MANAGEMENT >30 MINS Diagnoses COVID-19 U07.1 Plantar fasciitis of left foot M72.2 Biceps femoris tendon strain at knee S86.819A Generalized weakness R53.1 Elevated troponin R77.8 (HFpEF) heart failure with preserved ejection fraction I50.30 Acute on chronic kidney failure N17.9; N18.9 History of atrial fibrillation Z86.79 History of aortic valve replacement Z95.2 Coronary artery disease I25.10 Moderate obstructive sleep apnea G47.33 Rotator cuff tear M75.100
[2021-09-21] MEDS ORDERED: WARFARIN SOD 4 MG TAB PO SCH (16:00)
== END 2021-09-21 15:15 | DRG 178 ==
LOC: 2N 09:12 → ED 09:12 → SUATTDRO 13:10 → 2N 15:05 → SUATTDRO 09-14 13:42 → 3E 09-20 23:14

== ENCOUNTER 2021-11-03 12:36 | Inpatient (IN) ==
--- NOTE | 2021-11-03 14:09 | Emergency Department Note ---
History of Present Illness General Chief complaint: Referred by Doctor Stated complaint: REFERRED BY , TESTING REQUESTED Time Seen by Provider: 11/03/21 13:47 Source: patient Mode of arrival: ambulatory Limitations: no limitations History of Present Illness Maximum Pain Intensity: 6 This patient is an 86-year-old male who was sent over from Dr. Tello's office after he has had some weakness in his right leg. He continues to be weak and slightly confused. He has been admitted to the hospital 3 times recently the last was for COVID and at which time he spent 30 days in rehab and then was 2 weeks at home he follow-up with Dr. Rose Marie Rivas and and despite this he is not doing well his foot feels fine he is having trouble walking on it. He has had no recent fall. No chest pain or shortness of breath no numbness or weakness of the arms or face. No headache. No fever or chills. no cough. No blood or m katt stool. no dysuria or hematuria. Home Medications Medication Instructions Recorded Confirmed Type atorvastatin 20 mg tablet 20 mg PO HS 03/04/19 11/03/21 History furosemide 40 mg tablet 20 mg PO QAM 03/04/19 11/03/21 History potassium chloride 20 mEq oral 20 meq PO QAM 11/12/19 11/03/21 History packet (Klor-Con) sotalol 80 mg tablet 40 mg PO QAM 11/12/19 11/03/21 History warfarin 2 mg tablet 0 mg PO DIRECTED 07/12/21 11/03/21 History acetaminophen 500 mg tablet 1,000 mg PO BID PRN #30 tab 07/18/21 11/03/21 Rx (Tylenol Extra Strength) diclofenac sodium 1 % topical gel 4 g EXT QID PRN 11/03/21 11/03/21 History (Voltaren Arthritis Pain) lidocaine 5 % topical patch 1 patch TRANSDERMAL QAM PRN 11/03/21 11/03/21 History vit C,E,zinc,copper-plkpg5l 250 2 cap PO QAM 11/03/21 11/03/21 History mg-lutein 5 mg-zeaxanthin 1 mg capsule Allergies Allergy/AdvReac Type Severity Reaction Status Date / Time Penicillins Allergy Intermediate RASH Verified 11/03/21 14:53 celecoxib [From Celebrex] Allergy Unknown Unknown Verified 11/03/21 14:53 cyclobenzaprine Allergy Unknown Unknown Verified 11/03/21 14:53 [From Flexeril] simvastatin AdvReac Intermediate MUSCLE PAIN Verified 11/03/21 14:53 Past Med/Surg History Medical History History of atrial fibrillation History of cardioversion Hx of cardiac murmur Hypertension Macular degeneration GETS SHOTS IN EYES FOR TREATMENT Q8-10 WEEKS Restless leg syndrome Ventral hernia Surgical History History of aortic valve replacement AT AGE 58 ([facility]) History of colonoscopy History of inguinal hernia repair LEFT X 2 History of left cataract surgery 11/19/2019. propofol given. 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 Feels Safe at Home: Yes Safety Concerns: Feels Safe At This Time Assistive Devices: Glasses and Walker Review of Systems A total of 10 systems reviewed and were otherwise negative Physical Exam Vital Signs Vital Signs - 24 hr 11/03/21 12:40 11/03/21 14:02 Temperature 36.6 C Temperature Source Temporal Artery Scan Pulse Rate 60 Pulse Rate [Apical] 54 L Respiratory Rate 20 19 Respiratory Effort / Characteristics Non-Labored Spontaneous Respiratory Depth Normal Respiratory Pattern Regular Blood Pressure 123/72 Blood Pressure [Right Arm] 120/66 Blood Pressure Mean 89 Blood Pressure Mean [Right Arm] 84 Pulse Oximetry 95 98 Oxygen Delivery Method Room Air Room Air Sepsis Recent Fever Within 48 Hours No Sepsis New/Unexplained Change in Mental Status No Sepsis Action Taken by Nursing No Action Required General: Well developed well nourished older male who appears in no acute distress, breathing comfortably on room air. Normal speech HEENT: Normal cephalic atraumatic. Pupils are equal round and reactive to light. Sclera anicteric. Extraocular movements are intact. Oropharynx is pink with moist mucous membranes. No swelling of the mouth lips or tongue. Neck: Supple with a midline trachea. No meningeal signs or stiffness, no JVD or bruits. No Stridor. Chest: Clear to auscultation bilaterally. No wheezes or rhonchi. No increased work of breathing. Heart: Regular rate and rhythm without murmurs or gallops. Abdomen: Soft nontender, nondistended without rebound guarding or rigidity. Extremities: No cyanosis clubbing or edema. No calf tenderness or assymetry. His foot and ankle are not red or warm or swollen he does have some mild tenderness in the anterior ankle and towards the lateral aspect of the foot. Normal pulses Spine/Back. Non tender to palpation. No CVA tenderness Skin: Good turgor without rashes. Neurologic exam: Cranial nerves two through 12 are intact. Motor and sensation are intact and symmetrical throughout. Course Administered Medications Acetaminophen (Acetaminophen 500 Mg Tab) 1,000 mg PO BID PRN PRN Reason: Pain Stop: 12/03/21 20:39 Last Admin: 11/07/21 21:32 Dose: 1,000 mg Documented by: [id number] Admin: 11/07/21 08:41 Dose: 1,000 mg Documented by: [id number] Admin: 11/07/21 00:24 Dose: 1,000 mg Documented by: [id number] Admin: 11/05/21 23:52 Dose: 1,000 mg Documented by: [id number] Atorvastatin Calcium (Atorvastatin 20 Mg Tab) 20 mg PO [facility] Stop: 12/03/21 20:59 Last Admin: 11/07/21 21:32 Dose: 20 mg Documented by: [id number] Admin: 11/06/21 20:13 Dose: 20 mg Documented by: [id number] Admin: 11/05/21 20:10 Dose: 20 mg Documented by: [id number] Admin: 11/04/21 20:11 Dose: 20 mg Documented by: [id number] Admin: 11/03/21 21:35 Dose: 20 mg Documented by: [id number] [facility] ([facility] 20 Mg Tab) [facility] Stop: 12/04/21 08:59 Last Admin: 11/08/21 08:14 Dose: 20 mg Documented by: [id number] Admin: 11/07/21 08:35 Dose: 20 mg Documented by: [id number] Admin: 11/06/21 08:30 Dose: 20 mg Documented by: [id number] Admin: 11/05/21 08:28 Dose: 20 mg Documented by: [id number] Admin: 11/04/21 08:28 Dose: 20 mg Documented by: [id number] Ceftriaxone Sodium 2,000 mg/ (Dextrose) 70 mls @ 100 mls/hr IV Q24H [facility]; Protocol Stop: 11/16/21 13:59 Last Infusion: 11/07/21 15:49 Dose: 0 mls/hr Documented by: [id number] Admin: 11/07/21 15:03 Dose: 100 mls/hr Documented by: [id number] Infusion: 11/06/21 16:32 Dose: 0 mls/hr Documented by: [id number] Admin: 11/06/21 15:46 Dose: 100 mls/hr Documented by: [id number] Miconazole Nitrate (Miconazole Nitrate Powder 43 Gm) 1 appln EXT PRN PRN PRN Reason: Affected Skin Folds Stop: 12/05/21 06:09 Last Admin: 11/05/21 21:40 Dose: 1 appln Documented by: [id number] Miscellaneous (Remove Lidoderm Patch) 1 ea N/A DAILY@2100 [facility] Stop: 12/03/21 20:59 Last Admin: 11/07/21 21:35 Dose: Not Given Documented by: [id number] Admin: 11/06/21 20:14 Dose: Not Given Documented by: [id number] Admin: 11/05/21 20:11 Dose: Not Given Documented by: [id number] Admin: 11/04/21 20:11 Dose: Not Given Documented by: [id number] Admin: 11/03/21 20:58 Dose: Not Given Documented by: [id number] Potassium Chloride (Potassium Chloride Pwd 20 Meq Pack) 20 meq PO QAM [facility] Stop: 12/04/21 08:59 Last Admin: 11/08/21 08:15 Dose: 20 meq Documented by: [id number] Admin: 11/07/21 08:35 Dose: 20 meq Documented by: [id number] Admin: 11/06/21 08:30 Dose: 20 meq Documented by: [id number] Admin: 11/05/21 08:28 Dose: 20 meq Documented by: [id number] Admin: 11/04/21 08:28 Dose: 20 meq Documented by: [id number] Sotalol HCl (Sotalol Hcl 80 Mg Tab) 40 mg PO QAM [facility] Stop: 12/04/21 08:59 Last Admin: 11/08/21 08:14 Dose: 40 mg Documented by: [id number] Admin: 11/07/21 08:35 Dose: 40 mg Documented by: [id number] Admin: 11/06/21 08:30 Dose: 40 mg Documented by: [id number] Admin: 11/05/21 08:28 Dose: 40 mg Documented by: [id number] Admin: 11/04/21 08:28 Dose: 40 mg Documented by: [id number] Warfarin Sodium (Warfarin Sod 4 Mg Tab) 4 mg PO [email or web address]@1600 [facility] Stop: 12/04/21 15:59 Last Admin: 11/07/21 16:41 Dose: 4 mg Documented by: [id number] Admin: 11/04/21 17:02 Dose: 4 mg Documented by: [id number] Warfarin Sodium (Warfarin Sod 6 Mg Tab) 6 mg PO [email or web address] [facility] Stop: 12/05/21 15:59 Last Admin: 11/06/21 17:14 Dose: 6 mg Documented by: [id number] Admin: 11/05/21 17:21 Dose: 6 mg Documented by: [id number] Discontinued Medications Ioversol (Optiray 320 125ml) 120 ml IV ONCE ONE Stop: 11/03/21 16:17 Last Admin: 11/03/21 16:20 Dose: 120 ml Documented by: [id number] Medical Decision Making Differential Diagnosis Central neurologic process, stroke, gout, bony abnormality or musculoskeletal, lumbar disc disease, infection, electrolyte or metabolic abnormality, cardiac Medical Records Attestation: I reviewed the patient's medical records. Home Medications Current Medication List: was personally reviewed by me Laboratory Data Attestation: I reviewed the patient's lab results. Result diagrams: 11/08/21 06:35 11/08/21 06:35 Lab Results 11/03/21 11/03/21 11/03/21 Range/Units 14:14 14:14 14:14 WBC 9.77 (4.8-10.8) K/uL RBC 3.96 L (4.7-6.1) M/uL Hgb 12.0 L (14.0-18.0) g/dL Hct 35.9 L (42-52) % MCV 90.7 (80-100) fL MCH 30.3 (25-34) pg MCHC 33.4 (32-36) g/dL RDW Std Deviation 49.0 H (36.4-46.3) fL RDW Coeff of Cresencio 14.6 H (11.5-14.5) % Plt Count 313 (130-400) K/uL MPV 10.5 H (7.4-10.4) fL Immature Gran % (Auto) 0.2 % Neut % (Auto) 63.8 % Lymph % (Auto) 15.9 % [place] % (Auto) 15.8 % Eos % (Auto) 4.2 % Baso % (Auto) 0.1 % Neut # (Auto) 6.24 (1.4-6.5) K/uL Lymph # (Auto) 1.55 (1.2-3.4) K/uL [place] # (Auto) 1.54 H (0.11-0.59) K/uL Eos # (Auto) 0.41 (0-0.5) K/uL Baso # (Auto) 0.01 (0-0.2) K/uL Immature Gran # (Auto) 0.02 (0.00-0.02) K/uL PT Cancelled INR Cancelled APTT Cancelled PTT Ratio Cancelled Sodium 137 (136-145) mmol/L Potassium TNP Chloride 102 (98-107) mmol/L Carbon Dioxide 29 (21-32) mmol/L Anion Gap 6 (3-11) BUN 33 H (6-23) mg/dl Creatinine 1.44 H (0.6-1.4) mg/dl Est Cr Clr Drug Dosing Not Reportable Est GFR ( Amer) 51.0 ml/min Est GFR (Non-Af Amer) 44.0 ml/min BUN/Creatinine Ratio 22.9 H (10-20) Glucose 107 H (70-99(Fasting)) mg/dl POC Glucose (70-99) mg/dl Calcium 9.3 (8.5-10.1) mg/dl Magnesium (1.7-2.4) mg/dl Total Bilirubin 0.4 (0.2-1.0) mg/dl AST TNP ALT 13 (7-52) U/L Alkaline Phosphatase 64 (34-104) U/L Total Creatine Kinase (30-223) U/L Troponin I High Sens (0-20) pg/ml Total Protein 8.2 (6.0-8.3) gm/dl Albumin 3.6 (3.4-5.0) gm/dl Globulin 4.6 H (2.5-4.0) gm/dl Albumin/Globulin Ratio 0.8 L (0.9-2) Vitamin B12 (180-914) pg/ml TSH (0.300-4.500) uIu/ml Urine Color Urine Appearance (Clear) Urine pH (4.5-7.5) Ur Specific [place] (1.000-1.030) Urine Protein (Negative) Urine Glucose (UA) (Negative) Urine Ketones (Negative) Urine Blood (Negative) Urine Nitrite (Negative) Urine Bilirubin (Negative) Urine Urobilinogen (Negative) Ur Leukocyte Esterase (Negative) Urine WBC (Auto) (0-5) /hpf Urine RBC (Auto) (0-4) /hpf U Hyaline Cast (Auto) (0-5) /lpf U Epithel Cells (Auto) (0-5) /lpf Urine Bacteria (Auto) (Negative) RPR (Nonreactive) Lyme Disease IgG Ab (Negative) Lyme Disease IgM Ab (Negative) 11/03/21 11/03/21 11/03/21 Range/Units 15:15 15:15 17:17 WBC (4.8-10.8) K/uL RBC (4.7-6.1) M/uL Hgb (14.0-18.0) g/dL Hct (42-52) % MCV (80-100) fL MCH (25-34) pg MCHC (32-36) g/dL RDW Std Deviation (36.4-46.3) fL RDW Coeff of Cresencio (11.5-14.5) % Plt Count (130-400) K/uL MPV (7.4-10.4) fL Immature Gran % (Auto) % Neut % (Auto) % Lymph % (Auto) % [place] % (Auto) % Eos % (Auto) % Baso % (Auto) % Neut # (Auto) (1.4-6.5) K/uL Lymph # (Auto) (1.2-3.4) K/uL [place] # (Auto) (0.11-0.59) K/uL Eos # (Auto) (0-0.5) K/uL Baso # (Auto) (0-0.2) K/uL Immature Gran # (Auto) (0.00-0.02) K/uL PT 28.5 H INR 2.8 H APTT 48.9 H* PTT Ratio 1.8 Sodium (136-145) mmol/L Potassium TNP 3.9 Chloride (98-107) mmol/L Carbon Dioxide (21-32) mmol/L Anion Gap (3-11) BUN (6-23) mg/dl Creatinine (0.6-1.4) mg/dl Est Cr Clr Drug Dosing Est GFR ( Amer) ml/min Est GFR (Non-Af Amer) ml/min BUN/Creatinine Ratio (10-20) Glucose (70-99(Fasting)) mg/dl POC Glucose (70-99) mg/dl Calcium (8.5-10.1) mg/dl Magnesium 1.7 (1.7-2.4) mg/dl Total Bilirubin (0.2-1.0) mg/dl AST TNP 13 ALT (7-52) U/L Alkaline Phosphatase (34-104) U/L Total Creatine Kinase (30-223) U/L Troponin I High Sens 17.9 (0-20) pg/ml Total Protein (6.0-8.3) gm/dl Albumin (3.4-5.0) gm/dl Globulin (2.5-4.0) gm/dl Albumin/Globulin Ratio (0.9-2) Vitamin B12 (180-914) pg/ml TSH (0.300-4.500) uIu/ml Urine Color Urine Appearance (Clear) Urine pH (4.5-7.5) Ur Specific [place] (1.000-1.030) Urine Protein (Negative) Urine Glucose (UA) (Negative) Urine Ketones (Negative) Urine Blood (Negative) Urine Nitrite (Negative) Urine Bilirubin (Negative) Urine Urobilinogen (Negative) Ur Leukocyte Esterase (Negative) Urine WBC (Auto) (0-5) /hpf Urine RBC (Auto) (0-4) /hpf U Hyaline Cast (Auto) (0-5) /lpf U Epithel Cells (Auto) (0-5) /lpf Urine Bacteria (Auto) (Negative) RPR (Nonreactive) Lyme Disease IgG Ab (Negative) Lyme Disease IgM Ab (Negative) 11/03/21 11/03/21 11/03/21 Range/Units 17:17 17:26 19:40 WBC (4.8-10.8) K/uL RBC (4.7-6.1) M/uL Hgb (14.0-18.0) g/dL Hct (42-52) % MCV (80-100) fL MCH (25-34) pg MCHC (32-36) g/dL RDW Std Deviation (36.4-46.3) fL RDW Coeff of Cresencio (11.5-14.5) % Plt Count (130-400) K/uL MPV (7.4-10.4) fL Immature Gran % (Auto) % Neut % (Auto) % Lymph % (Auto) % [place] % (Auto) % Eos % (Auto) % Baso % (Auto) % Neut # (Auto) (1.4-6.5) K/uL Lymph # (Auto) (1.2-3.4) K/uL [place] # (Auto) (0.11-0.59) K/uL Eos # (Auto) (0-0.5) K/uL Baso # (Auto) (0-0.2) K/uL Immature Gran # (Auto) (0.00-0.02) K/uL PT INR APTT PTT Ratio Sodium (136-145) mmol/L Potassium Chloride (98-107) mmol/L Carbon Dioxide (21-32) mmol/L Anion Gap (3-11) BUN (6-23) mg/dl Creatinine (0.6-1.4) mg/dl Est Cr Clr Drug Dosing Est GFR ( Amer) ml/min Est GFR (Non-Af Amer) ml/min BUN/Creatinine Ratio (10-20) Glucose (70-99(Fasting)) mg/dl POC Glucose (70-99) mg/dl Calcium (8.5-10.1) mg/dl Magnesium (1.7-2.4) mg/dl Total Bilirubin (0.2-1.0) mg/dl AST ALT (7-52) U/L Alkaline Phosphatase (34-104) U/L Total Creatine Kinase 181 (30-223) U/L Troponin I High Sens (0-20) pg/ml Total Protein (6.0-8.3) gm/dl Albumin (3.4-5.0) gm/dl Globulin (2.5-4.0) gm/dl Albumin/Globulin Ratio (0.9-2) Vitamin B12 (180-914) pg/ml TSH (0.300-4.500) uIu/ml Urine Color Yellow Urine Appearance Clear (Clear) Urine pH 5.5 (4.5-7.5) Ur Specific [place] > 1.045 H (1.000-1.030) Urine Protein Negative (Negative) Urine Glucose (UA) Negative (Negative) Urine Ketones Negative (Negative) Urine Blood Trace H (Negative) Urine Nitrite Negative (Negative) Urine Bilirubin Negative (Negative) Urine Urobilinogen Negative (Negative) Ur Leukocyte Esterase Negative (Negative) Urine WBC (Auto) 1-5 (0-5) /hpf Urine RBC (Auto) 0-4 (0-4) /hpf U Hyaline Cast (Auto) 1-5 (0-5) /lpf U Epithel Cells (Auto) 10-20 H (0-5) /lpf Urine Bacteria (Auto) Negative (Negative) RPR Nonreactive (Nonreactive) Lyme Disease IgG Ab Negative (Negative) Lyme Disease IgM Ab Negative (Negative) 11/03/21 11/03/21 11/04/21 Range/Units 19:40 19:50 05:56 WBC 8.78 (4.8-10.8) K/uL RBC 3.73 L (4.7-6.1) M/uL Hgb 11.3 L (14.0-18.0) g/dL Hct 33.5 L (42-52) % MCV 89.8 (80-100) fL MCH 30.3 (25-34) pg MCHC 33.7 (32-36) g/dL RDW Std Deviation 48.3 H (36.4-46.3) fL RDW Coeff of Cresencio 14.4 (11.5-14.5) % Plt Count 303 (130-400) K/uL MPV 10.2 (7.4-10.4) fL Immature Gran % (Auto) 0.2 % Neut % (Auto) 56.8 % Lymph % (Auto) 16.9 % [place] % (Auto) 20.7 % Eos % (Auto) 5.2 % Baso % (Auto) 0.2 % Neut # (Auto) 4.98 (1.4-6.5) K/uL Lymph # (Auto) 1.48 (1.2-3.4) K/uL [place] # (Auto) 1.82 H (0.11-0.59) K/uL Eos # (Auto) 0.46 (0-0.5) K/uL Baso # (Auto) 0.02 (0-0.2) K/uL Immature Gran # (Auto) 0.02 (0.00-0.02) K/uL PT INR APTT PTT Ratio Sodium (136-145) mmol/L Potassium Chloride (98-107) mmol/L Carbon Dioxide (21-32) mmol/L Anion Gap (3-11) BUN (6-23) mg/dl Creatinine (0.6-1.4) mg/dl Est Cr Clr Drug Dosing Est GFR ( Amer) ml/min Est GFR (Non-Af Amer) ml/min BUN/Creatinine Ratio (10-20) Glucose (70-99(Fasting)) mg/dl POC Glucose (70-99) mg/dl Calcium (8.5-10.1) mg/dl Magnesium (1.7-2.4) mg/dl Total Bilirubin (0.2-1.0) mg/dl AST ALT (7-52) U/L Alkaline Phosphatase (34-104) U/L Total Creatine Kinase (30-223) U/L Troponin I High Sens (0-20) pg/ml Total Protein (6.0-8.3) gm/dl Albumin (3.4-5.0) gm/dl Globulin (2.5-4.0) gm/dl Albumin/Globulin Ratio (0.9-2) Vitamin B12 357 (180-914) pg/ml TSH 3.267 (0.300-4.500) uIu/ml Urine Color Urine Appearance (Clear) Urine pH (4.5-7.5) Ur Specific [place] (1.000-1.030) Urine Protein (Negative) Urine Glucose (UA) (Negative) Urine Ketones (Negative) Urine Blood (Negative) Urine Nitrite (Negative) Urine Bilirubin (Negative) Urine Urobilinogen (Negative) Ur Leukocyte Esterase (Negative) Urine WBC (Auto) (0-5) /hpf Urine RBC (Auto) (0-4) /hpf U Hyaline Cast (Auto) (0-5) /lpf U Epithel Cells (Auto) (0-5) /lpf Urine Bacteria (Auto) (Negative) RPR (Nonreactive) Lyme Disease IgG Ab (Negative) Lyme Disease IgM Ab (Negative) 11/04/21 11/04/21 11/04/21 Range/Units 05:56 05:56 07:57 WBC (4.8-10.8) K/uL RBC (4.7-6.1) M/uL Hgb (14.0-18.0) g/dL Hct (42-52) % MCV (80-100) fL MCH (25-34) pg MCHC (32-36) g/dL RDW Std Deviation (36.4-46.3) fL RDW Coeff of Cresencio (11.5-14.5) % Plt Count (130-400) K/uL MPV (7.4-10.4) fL Immature Gran % (Auto) % Neut % (Auto) % Lymph % (Auto) % [place] % (Auto) % Eos % (Auto) % Baso % (Auto) % Neut # (Auto) (1.4-6.5) K/uL Lymph # (Auto) (1.2-3.4) K/uL [place] # (Auto) (0.11-0.59) K/uL Eos # (Auto) (0-0.5) K/uL Baso # (Auto) (0-0.2) K/uL Immature Gran # (Auto) (0.00-0.02) K/uL PT 26.1 H INR 2.6 H APTT PTT Ratio Sodium 136 (136-145) mmol/L Potassium 3.9 Chloride 101 (98-107) mmol/L Carbon Dioxide 31 (21-32) mmol/L Anion Gap 4 (3-11) BUN 26 H (6-23) mg/dl Creatinine 1.26 (0.6-1.4) mg/dl Est Cr Clr Drug Dosing 48.7 Est GFR ( Amer) 59.9 ml/min Est GFR (Non-Af Amer) 51.7 ml/min BUN/Creatinine Ratio 20.6 H (10-20) Glucose 88 (70-99(Fasting)) mg/dl POC Glucose 92 (70-99) mg/dl Calcium 8.8 (8.5-10.1) mg/dl Magnesium (1.7-2.4) mg/dl Total Bilirubin (0.2-1.0) mg/dl AST ALT (7-52) U/L Alkaline Phosphatase (34-104) U/L Total Creatine Kinase (30-223) U/L Troponin I High Sens (0-20) pg/ml Total Protein (6.0-8.3) gm/dl Albumin (3.4-5.0) gm/dl Globulin (2.5-4.0) gm/dl Albumin/Globulin Ratio (0.9-2) Vitamin B12 (180-914) pg/ml TSH (0.300-4.500) uIu/ml Urine Color Urine Appearance (Clear) Urine pH (4.5-7.5) Ur Specific [place] (1.000-1.030) Urine Protein (Negative) Urine Glucose (UA) (Negative) Urine Ketones (Negative) Urine Blood (Negative) Urine Nitrite (Negative) Urine Bilirubin (Negative) Urine Urobilinogen (Negative) Ur Leukocyte Esterase (Negative) Urine WBC (Auto) (0-5) /hpf Urine RBC (Auto) (0-4) /hpf U Hyaline Cast (Auto) (0-5) /lpf U Epithel Cells (Auto) (0-5) /lpf Urine Bacteria (Auto) (Negative) RPR (Nonreactive) Lyme Disease IgG Ab (Negative) Lyme Disease IgM Ab (Negative) 11/04/21 11/04/21 11/05/21 Range/Units 11:35 16:29 05:50 WBC 8.07 (4.8-10.8) K/uL RBC 3.79 L (4.7-6.1) M/uL Hgb 11.1 L (14.0-18.0) g/dL Hct 33.8 L (42-52) % MCV 89.2 (80-100) fL MCH 29.3 (25-34) pg MCHC 32.8 (32-36) g/dL RDW Std Deviation 46.8 H (36.4-46.3) fL RDW Coeff of Cresencio 14.3 (11.5-14.5) % Plt Count 292 (130-400) K/uL MPV 9.9 (7.4-10.4) fL Immature Gran % (Auto) 0.1 % Neut % (Auto) 57.5 % Lymph % (Auto) 16.7 % [place] % (Auto) 20.9 % Eos % (Auto) 4.7 % Baso % (Auto) 0.1 % Neut # (Auto) 4.63 (1.4-6.5) K/uL Lymph # (Auto) 1.35 (1.2-3.4) K/uL [place] # (Auto) 1.69 H (0.11-0.59) K/uL Eos # (Auto) 0.38 (0-0.5) K/uL Baso # (Auto) 0.01 (0-0.2) K/uL Immature Gran # (Auto) 0.01 (0.00-0.02) K/uL PT INR APTT PTT Ratio Sodium (136-145) mmol/L Potassium Chloride (98-107) mmol/L Carbon Dioxide (21-32) mmol/L Anion Gap (3-11) BUN (6-23) mg/dl Creatinine (0.6-1.4) mg/dl Est Cr Clr Drug Dosing Est GFR ( Amer) ml/min Est GFR (Non-Af Amer) ml/min BUN/Creatinine Ratio (10-20) Glucose (70-99(Fasting)) mg/dl POC Glucose 109 H 93 (70-99) mg/dl Calcium (8.5-10.1) mg/dl Magnesium (1.7-2.4) mg/dl Total Bilirubin (0.2-1.0) mg/dl AST ALT (7-52) U/L Alkaline Phosphatase (34-104) U/L Total Creatine Kinase (30-223) U/L Troponin I High Sens (0-20) pg/ml Total Protein (6.0-8.3) gm/dl Albumin (3.4-5.0) gm/dl Globulin (2.5-4.0) gm/dl Albumin/Globulin Ratio (0.9-2) Vitamin B12 (180-914) pg/ml TSH (0.300-4.500) uIu/ml Urine Color Urine Appearance (Clear) Urine pH (4.5-7.5) Ur Specific [place] (1.000-1.030) Urine Protein (Negative) Urine Glucose (UA) (Negative) Urine Ketones (Negative) Urine Blood (Negative) Urine Nitrite (Negative) Urine Bilirubin (Negative) Urine Urobilinogen (Negative) Ur Leukocyte Esterase (Negative) Urine WBC (Auto) (0-5) /hpf Urine RBC (Auto) (0-4) /hpf U Hyaline Cast (Auto) (0-5) /lpf U Epithel Cells (Auto) (0-5) /lpf Urine Bacteria (Auto) (Negative) RPR (Nonreactive) Lyme Disease IgG Ab (Negative) Lyme Disease IgM Ab (Negative) 11/05/21 Range/Units 05:50 WBC (4.8-10.8) K/uL RBC (4.7-6.1) M/uL Hgb (14.0-18.0) g/dL Hct (42-52) % MCV (80-100) fL MCH (25-34) pg MCHC (32-36) g/dL RDW Std Deviation (36.4-46.3) fL RDW Coeff of Cresencio (11.5-14.5) % Plt Count (130-400) K/uL MPV (7.4-10.4) fL Immature Gran % (Auto) % Neut % (Auto) % Lymph % (Auto) % [place] % (Auto) % Eos % (Auto) % Baso % (Auto) % Neut # (Auto) (1.4-6.5) K/uL Lymph # (Auto) (1.2-3.4) K/uL [place] # (Auto) (0.11-0.59) K/uL Eos # (Auto) (0-0.5) K/uL Baso # (Auto) (0-0.2) K/uL Immature Gran # (Auto) (0.00-0.02) K/uL PT INR APTT PTT Ratio Sodium 136 (136-145) mmol/L Potassium 3.9 Chloride 102 (98-107) mmol/L Carbon Dioxide 30 (21-32) mmol/L Anion Gap 4 (3-11) BUN 29 H (6-23) mg/dl Creatinine 1.43 H (0.6-1.4) mg/dl Est Cr Clr Drug Dosing 42.3 Est GFR ( Amer) 51.4 ml/min Est GFR (Non-Af Amer) 44.3 ml/min BUN/Creatinine Ratio 20.3 H (10-20) Glucose 92 (70-99(Fasting)) mg/dl POC Glucose (70-99) mg/dl Calcium 8.7 (8.5-10.1) mg/dl Magnesium (1.7-2.4) mg/dl Total Bilirubin (0.2-1.0) mg/dl AST ALT (7-52) U/L Alkaline Phosphatase (34-104) U/L Total Creatine Kinase (30-223) U/L Troponin I High Sens (0-20) pg/ml Total Protein (6.0-8.3) gm/dl Albumin (3.4-5.0) gm/dl Globulin (2.5-4.0) gm/dl Albumin/Globulin Ratio (0.9-2) Vitamin B12 (180-914) pg/ml TSH (0.300-4.500) uIu/ml Urine Color Urine Appearance (Clear) Urine pH (4.5-7.5) Ur Specific [place] (1.000-1.030) Urine Protein (Negative) Urine Glucose (UA) (Negative) Urine Ketones (Negative) Urine Blood (Negative) Urine Nitrite (Negative) Urine Bilirubin (Negative) Urine Urobilinogen (Negative) Ur Leukocyte Esterase (Negative) Urine WBC (Auto) (0-5) /hpf Urine RBC (Auto) (0-4) /hpf U Hyaline Cast (Auto) (0-5) /lpf U Epithel Cells (Auto) (0-5) /lpf Urine Bacteria (Auto) (Negative) RPR (Nonreactive) Lyme Disease IgG Ab (Negative) Lyme Disease IgM Ab (Negative) Imaging Data Attestation: I personally reviewed and interpreted this imaging study as follows: My Impression: X-ray of right foot and ankle-no fracture or dislocation. Chest x-raycardiomegaly but no acute infiltrate, failure, pneumothorax seen Radiologist's Impression: Ankle X-Ray 11/03/21 14:02 XR ankle RT min 3V routine CLINICAL HISTORY: ankle pain. COMPARISON STUDY: No previous studies for comparison. TECHNIQUE: 3 right ankle views FINDINGS: Bones: There is no evidence for an acute fracture or dislocation. There is no lytic or blastic lesion. Joints: There is mild narrowing of the tibiotalar joint. The bones are in anatomic alignment. Soft tissues: There is no focal soft tissue abnormality. There is no radiopaque foreign body. IMPRESSION: 1. No acute osseous pathology. 2. Mild joint space narrowing. ACT 112: Negative or not required by law. Electronically signed by: Zion Urias M.D. 11/03/2021 2:58 PM Chest X-Ray 11/03/21 14:02 XR chest 1V portable CLINICAL HISTORY: Stroke Like Symptoms COMPARISON STUDY: Chest CT July 13, 2021. Chest radiograph September 12, 2021. FINDINGS: Median sternotomy wires and prosthetic aortic and mitral valves are noted. Cardiomegaly is unchanged. No evidence for pulmonary edema. No pneumothorax or pleural effusion is present. Hazy right perihilar opacity is noted. This may correspond to atelectasis or scarring within the right middle lobe shown on prior CT. No definite consolidation to suggest pneumonia. Bilateral hilar prominence is unchanged. IMPRESSION: 1. Cardiomegaly without evidence for pulmonary edema. 2. Hazy right perihilar opacity which may reflect atelectasis or scarring within the right middle lobe, shown on prior CT. ACT 112: Negative or not required by law. Electronically signed by: Leo Pastrana M.D. 11/03/2021 3:01 PM Foot X-Ray 11/03/21 14:02 XR foot RT min 3V routine CLINICAL HISTORY: foot pain TECHNIQUE: 3 views of the right foot were obtained. Comparison: None available at the time of this dictation. FINDINGS: No fractures are present. Degenerative changes are seen. Vascular calcifications are noted. IMPRESSION: Degenerative changes are seen without evidence of acute fracture. ACT 112: Negative or not required by law. Electronically signed by: Brandon Flowers M.D. 11/03/2021 2:58 PM Ankle X-Ray 11/03/21 14:02 XR ankle RT min 3V routine CLINICAL HISTORY: ankle pain. COMPARISON STUDY: No previous studies for comparison. TECHNIQUE: 3 right ankle views FINDINGS: Bones: There is no evidence for an acute fracture or dislocation. There is no lytic or blastic lesion. Joints: There is mild narrowing of the tibiotalar joint. The bones are in anatomic alignment. Soft tissues: There is no focal soft tissue abnormality. There is no radiopaque foreign body. IMPRESSION: 1. No acute osseous pathology. 2. Mild joint space narrowing. ACT 112: Negative or not required by law. Electronically signed by: Zion Urias M.D. 11/03/2021 2:58 PM Chest X-Ray 11/03/21 14:02 XR chest 1V portable CLINICAL HISTORY: Stroke Like Symptoms COMPARISON STUDY: Chest CT July 13, 2021. Chest radiograph September 12, 2021. FINDINGS: Median sternotomy wires and prosthetic aortic and mitral valves are noted. Cardiomegaly is unchanged. No evidence for pulmonary edema. No pneumothorax or pleural effusion is present. Hazy right perihilar opacity is noted. This may correspond to atelectasis or scarring within the right middle lobe shown on prior CT. No definite consolidation to suggest pneumonia. Bilatera l hilar prominence is unchanged. IMPRESSION: 1. Cardiomegaly without evidence for pulmonary edema. 2. Hazy right perihilar opacity which may reflect atelectasis or scarring within the right middle lobe, shown on prior CT. ACT 112: Negative or not required by law. Electronically signed by: Leo Pastrana M.D. 11/03/2021 3:01 PM Foot X-Ray 11/03/21 14:02 XR foot RT min 3V routine CLINICAL HISTORY: foot pain TECHNIQUE: 3 views of the right foot were obtained. Comparison: None available at the time of this dictation. FINDINGS: No fractures are present. Degenerative changes are seen. Vascular calcifications are noted. IMPRESSION: Degenerative changes are seen without evidence of acute fracture. ACT 112: Negative or not required by law. Electronically signed by: Brandon Flowers M.D. 11/03/2021 2:[address] 11/03/21 14:02 CT head/brain wo con CLINICAL HISTORY: Stroke Like Symptoms Technique: Contiguous axial CT images of the head were acquired from the base of the skull to the vertex without intravenous contrast administration. Images were viewed in brain, subdural and bone windows. Automated dose lowering techniques and/or adjustment according to patient size were utilized for this exam. Comparison: Comparison is made to CT head 07/12/2021 Findings: Areas of decreased attenuation are present in the periventricular and subcortical white matter bilaterally consistent with small vessel ischemic disease. Generalized cerebral atrophy with commensurate enlargement of the ventricles, sulci, and cisterns is also present. There is no acute intracranial hemorrhage or evidence of acute territorial infarction. No shift of the midline structures, mass effect, or extra-axial abnormalities are shown. Atherosclerotic calcifications are present in the intracranial segments of the internal carotid arteries. A lacunar infarct is seen in the right insula. Imaged portions of the paranasal sinuses and mastoid air cells are clear. The orbits appear normal. There are no acute fractures of the calvaria or scalp swelling. Impression: No acute intracranial hemorrhage, no evidence of acute territorial infarction or other acute intracranial disease process. ACT 112: Negative or not required by law. Electronically signed by: Brandon Flowers M.D. 11/03/2021 4:21 PM Head CTA 11/03/21 14:02 CTA ANGIOGRAPHY OF THE HEAD CLINICAL HISTORY: Stroke Like Symptoms. Right leg weakness. COMPARISON STUDY: Head CT July 12, 2021. TECHNIQUE: Helical axial images of the head were obtained following uneventful intravenous administration of 120 cc of Optiray. Sagittal and coronal reconstructions were viewed as well as maximal intensity projections on an independent 3-D workstation. Automated exposure control was utilized for the s tudy. A dose lowering technique was utilized adhering to the principles of ALARA. FINDINGS: Please note that the head CT will be reported separately. Ventricular system is stable. Basal cisterns are patent. There are no extra-axial collections. The bilateral M1, M2, A1 and A2 segments are patent. There is moderate plaque within the bilateral cavernous carotids without stenosis. No central vessel occlusion is present. Posterior circulation is also intact. There is no intracranial aneurysm. IMPRESSION: No central vessel occlusion. No intracranial aneurysm. ACT 112: Negative or not required by law. Electronically signed by: Leo Pastrana M.D. 11/03/2021 4:[address] 11/03/21 14:02 CT lumbar spine wo con CLINICAL HISTORY: rt leg weakness TECHNIQUE: Multidetector row helical CT of the lumbar spine was performed without administration of intravenous contrast. Coronal and sagittal reformations were obtained. Automated dose lowering techniques and/or adjustment according to patient size were utilized for this exam. Comparison: Comparison is made to lumbar spine MRI 06/10/2017 FINDINGS: For counting purposes, the last complete intervertebral disc space is considered L5-S1. No acute fractures are identified. Calcifications are noted in the disc at T11- T12 and L1-L2. Schmorl's nodes noted in the superior aspect of L1. Disc space narrowing is seen at L5-S1. A posterior disc bulge is noted at L2-L3 and L4-L5. Vertebral body alignment is within normal limits. Surrounding soft tissues are unremarkable. IMPRESSION: Degenerative changes are seen without evidence of acute fracture. If there is concern for neuroforaminal stenosis, MRI lumbar spine without contrast can be performed. ACT 112: Negative or not required by law. Electronically signed by: Brandon Flowers M.D. 11/03/2021 4:27 PM Neck CTA 11/03/21 14:02 CT angio neck with con CLINICAL HISTORY: Stroke Like Symptoms TECHNIQUE: CT angiography of the neck was performed following intravenous administration of iodinated contrast. Coronal and sagittal MIPS were obtained from the axial data set and were submitted for review. Automated dose lowering techniques and/or adjustment according to patient size were utilized for this examination. All measurements were calculated based on NASCET criteria. CT DOSE: 1796.76 mGy.cm Comparison: None available at the time of this dictation. FINDINGS: Partial visualization of a partially calcified nodule in the right upper lobe. Remainder of the soft tissues are unremarkable. CTA Neck: A 3 vessel aortic arch is shown. Atherosclerotic plaque is present in the aortic arch and at the origin of the great vessels. The common carotid, external carotid, cervical segments of the internal carotid arteries, and the cervical segments of the vertebral arteries are patent without hemodynamically significant stenosis. The vertebral arteries are codominant. IMPRESSION: No occlusion, hemodynamically significant stenosis, or dissection in the major cervical arteries. Atherosclerotic disease seen. Assessment of stenosis of the internal carotid arteries is based on NASCET criteria. ACT 112: Negative or not required by law. Electronically signed by: Brandon Flowers M.D. 11/03/2021 4:33 PM Brain MRI 11/04/21 16:05 MR brain wo con CLINICAL HISTORY: Lower extremity weakness for one month. Patient reports inability to ambulate.. COMPARISON STUDY: No previous studies for comparison. TECHNIQUE: Multiplanar multisequence images of the Brain were performed without IV contrast. Diffusion weighted imaging and ADC mapping was also performed. FINDINGS: Extra-axial space: There is no evidence for a subdural hematoma, There are no extra-axial fluid collections. Ventricles and cisterns: The ventricles are moderately dilated bilaterally. There is no evidence for midline shift or mass effect. Parenchyma: There is no evidence for an acute hemorrhage or infarct. No acute diffusion abnormalities are noted on diffusion weighted imaging or ADC mapping. There is normal maharaj-white differentiation. There is moderate cerebral cortical atrophy present. The sulci and gyri appear normal without effacement. The midline structures are unremarkable. The posterior fossa structures appear normal. There is no evidence for mass lesion. Osseous structures: The paranasal sinuses are well aerated. The mastoid air cells are well aerated. Soft tissues: No focal soft tissue abnormalities are identified. IMPRESSION: 1. No acute intracranial abnormalities. 2. Moderate cerebral cortical atrophy ACT 112: Negative or not required by law. Electronically signed by: Zion Urias M.D. 11/05/2021 8:01 AM ECG Data Attestation: I personally reviewed and interpreted this ECG as follows: Indication: + weakness Rate (beats per minute): 58 Rhythm: + normal sinus and + other (Poor baseline) ECG Intervals/blocks: + First degree AV block, + IVCD and + Normal QT ECG [place]: + Normal ECG ST segments: + Nonspecific ST abnormalities ECG Findings: no PACs or no PVCs Comparison ECG Date: from (09/14/21) Change: no significant change MDM Narrative This patient comes in with weakness and difficulty ambulating. I did review his records he has had COVID and has been to rehab and he still has symptoms and is not doing well. I did x-rays of foot and ankle as well as chest x-ray. EKG mul tiple blood testing was obtained I did a Stroke work-up as well including CAT scan of the head as well as CTA of the head and neck. He was reassessed frequently. He has no white count or fever to suggest infection. He has no significant electrolyte or metabolic abnormalities. His mild renal insu fficiency at baseline with a creatinine of 1.44. Chest x-ray does not show congestive heart failure pneumonia or pneumothorax. EKG is nonischemic appearing. He had neuroimaging and imaging of his back. There were no definite abnormalities to explain his symptoms. He continues to have weakness in the leg mostly the foot some of this may be actually more pain related but I do think he needs to be admitted to the hospital for further neurologic/stroke work-up which may include MRIs. I have consulted the [facility] hospitalist to see him in the ER for these measures. Continuous cardiac monitoring: Orders placed in EMR for continuous cardiac monitoring. Upon my interpretation, he was noted to be in sinus bradycardia with a rate of 55 Impression & Plan Weakness, Ambulatory dysfunction, Foot pain, History of COVID-19 Discharge Plan Visit Data Chief Complaint: Referred by Doctor Stated Complaint: REFERRED BY DR, TESTING REQUESTED ED Provider: Blayne Wolfe Discharge Problem: Weakness, Ambulatory dysfunction, Foot pain, History of COVID-19 Patient Disposition: Admitted As Inpatient Discharge Instructions Interventions: ED Discharge Assessment Last Done: 11/03/21 19:50 Discharge Problem: Foot pain Qualifiers: Laterality: right Qualified Code(s): M79.671 - Pain in right foot
[2021-11-03 14:33] LABS: Basophils # (auto) 0.01 K/uL (0-0.2); Basophils % (auto) 0.1 %; Eosinophils # (auto) 0.41 K/uL (0-0.5); Eosinophils % (auto) 4.2 %; Hematocrit (blood only) 35.9 % (42-52); Immature Granulocytes # (auto) 0.02 K/uL (0.00-0.02); Immature Granulocytes % (auto) 0.2 %; Lymphocytes # (auto) 1.55 K/uL (1.2-3.4); Lymphocytes % (auto) 15.9 %; Mean Corpuscular Hemoglobin 30.3 pg (25-34); Mean Corpuscular Hgb Conc 33.4 g/dL (32-36); Mean Corpuscular Volume 90.7 fL (80-100); Mean Platelet Volume 10.5 fL (7.4-10.4); Monocytes # (auto) 1.54 K/uL (0.11-0.59); Monocytes % (auto) 15.8 %; Neutrophils # (auto) 6.24 K/uL (1.4-6.5); Neutrophils % (auto) 63.8 %; Platelet Count 313 K/uL (130-400); RDW Coefficient of Variation 14.6 % (11.5-14.5); Red Blood Count 3.96 M/uL (4.7-6.1); White Blood Count 9.77 K/uL (4.8-10.8)
--- NOTE | 2021-11-03 14:59 | XRay Report ---
XR foot RT min 3V routine CLINICAL HISTORY: foot pain TECHNIQUE: 3 views of the right foot were obtained. Comparison: None available at the time of this dictation. FINDINGS: No fractures are present. Degenerative changes are seen. Vascular calcifications are noted. IMPRESSION: Degenerative changes are seen without evidence of acute fracture. ACT 112: Negative or not required by law. Electronically signed by: Brandon Flowers M.D. 11/03/2021 2:58 PM
--- NOTE | 2021-11-03 14:59 | XRay Report ---
XR ankle RT min 3V routine CLINICAL HISTORY: ankle pain. COMPARISON STUDY: No previous studies for comparison. TECHNIQUE: 3 right ankle views FINDINGS: Bones: There is no evidence for an acute fracture or dislocation. There is no lytic or blastic lesion . Joints: There is mild narrowing of the tibiotalar joint. The bones are in anatomic alignment. Soft tissues: There is no focal soft tissue abnormality. There is no radiopaque foreign body. IMPRESSION: 1. No acute osseous pathology. 2. Mild joint space narrowing. ACT 112: Negative or not required by law. Electronically signed by: Zion Urias M.D. 11/03/2021 2:58 PM
--- NOTE | 2021-11-03 15:02 | XRay Report ---
XR chest 1V portable CLINICAL HISTORY: Stroke Like Symptoms COMPARISON STUDY: Chest CT July 13, 2021. Chest radiograph September 12, 2021. FINDINGS: Median sternotomy wires and prosthetic aortic and mitral valves are noted. Cardiomegaly is unchanged. No evidence for pulmonary edema. No pneumothorax or pleural effusion is present. Hazy righ t perihilar opacity is noted. This may correspond to atelectasis or scarring within the right middle lobe shown on prior CT. No definite consolidation to suggest pneumonia. Bilateral hilar prominence is unchanged. IMPRESSION: 1. Cardiomegaly without evidence for pulmonary edema. 2. Hazy right perihilar opacity which may reflect atelectasis or scarring within the right middle lob e, shown on prior CT. ACT 112: Negative or not required by law. Electronically signed by: Leo Pastrana M.D. 11/03/2021 3:01 PM
[2021-11-03 15:43] LABS: Alanine Aminotransferase 13 U/L (7-52); Albumin Globulin Ratio 0.8 (0.9-2); Albumin Level 3.6 gm/dl (3.4-5.0); Alkaline Phosphatase 64 U/L (34-104); Anion Gap 6 (3-11); BUN Creatinine Ratio 22.9 (10-20); Bilirubin,Total 0.4 mg/dl (0.2-1.0); Blood Urea Nitrogen 33 mg/dl (6-23); Calcium 9.3 mg/dl (8.5-10.1); Carbon Dioxide 29 mmol/L (21-32); Chloride 102 mmol/L (98-107); Globulin 4.6 gm/dl (2.5-4.0); Glucose 107 mg/dl (70-99(Fasting)); Sodium 137 mmol/L (136-145); Total Protein 8.2 gm/dl (6.0-8.3)
[2021-11-03 15:58] LABS: INR 2.8 (0.9-1.1); Partial Thromboplastin Ratio 1.8; Prothrombin Time 28.5 Seconds (9.0-12.0)
[2021-11-03 16:02] LABS: Partial Thromboplastin Time 48.9 Seconds (21.0-31.0)
[2021-11-03 16:09] LABS: Magnesium 1.7 mg/dl (1.7-2.4); Troponin I High Sensitivity 17.9 pg/ml (0-20)
[2021-11-03] MEDS ORDERED: OPTIRAY 320 125ml IV ONE (16:16)
--- NOTE | 2021-11-03 16:25 | CT Scan Report ---
CT head/brain wo con CLINICAL HISTORY: Stroke Like Symptoms Technique: Contiguous axial CT images of the head were acquired from the base of the skull to the ruddy davis without intravenous contrast administration. Images were viewed in brain, subdural and bone [facility]. Automated dose lowering techniques and/or adjustment according to patient size were utilized for this exam. Comparison: Comparison is made to CT head 07/12/2021 Findings: Areas of decreased attenuation are present in the periventricular and subcortical white matter bilate rally consistent with small vessel ischemic disease. Generalized cerebral atrophy with commensurate e nlargement of the ventricles, sulci, and cisterns is also present. There is no acute intracranial hem orrhage or evidence of acute territorial infarction. No shift of the midline structures, mass effect, or extra-axial abnormalities are shown. Atherosclerotic calcifications are present in the intracran ial segments of the internal carotid arteries. A lacunar infarct is seen in the right insula. Imaged portions of the paranasal sinuses and mastoid air cells are clear. The orbits appear normal. There are no acute fractures of the calvaria or scalp swelling. Impression: No acute intracranial hemorrhage, no evidence of acute territorial infarction or other acute intracra nial disease process. ACT 112: Negative or not required by law. Electronically signed by: Brandon Flowers M.D. 11/03/2021 4:21 PM
--- NOTE | 2021-11-03 16:29 | CT Scan Report ---
CT lumbar spine wo con CLINICAL HISTORY: rt leg weakness TECHNIQUE: Multidetector row helical CT of the lumbar spine was performed without administration of i ntravenous contrast. Coronal and sagittal reformations were obtained. Automated dose lowering techniq ues and/or adjustment according to patient size were utilized for this exam. Comparison: Comparison is made to lumbar spine MRI 06/10/2017 FINDINGS: For counting purposes, the last complete intervertebral disc space is considered L5-S1. No acute fractures are identified. Calcifications are noted in the disc at T11-T12 and L1-L2. Schmorl 's nodes noted in the superior aspect of L1. Disc space narrowing is seen at L5-S1. A posterior disc bulge is noted at L2-L3 and L4-L5. Vertebral body alignment is within normal limits. Surrounding soft tissues are unremarkable. IMPRESSION: Degenerative changes are seen without evidence of acute fracture. If there is concern for neuroforami nal stenosis, MRI lumbar spine without contrast can be performed. ACT 112: Negative or not required by law. Electronically signed by: Brandon Flowers M.D. 11/03/2021 4:27 PM
--- NOTE | 2021-11-03 16:30 | CT Scan Report ---
CTA ANGIOGRAPHY OF THE HEAD CLINICAL HISTORY: Stroke Like Symptoms. Right leg weakness. COMPARISON STUDY: Head CT July 12, 2021. TECHNIQUE: Helical axial images of the head were obtained following uneventful intravenous administr ation of 120 cc of Optiray. Sagittal and coronal reconstructions were viewed as well as maximal inten sity projections on an independent 3-D workstation. Automated exposure control was utilized for the study. A dose lowering technique was utilized adhering to the principles of ALARA. FINDINGS: Please note that the head CT will be reported separately. Ventricular system is stable. Bas al cisterns are patent. There are no extra-axial collections. The bilateral M1, M2, A1 and A2 segment s are patent. There is moderate plaque within the bilateral cavernous carotids without stenosis. No c entral vessel occlusion is present. Posterior circulation is also intact. There is no intracranial an eurysm. IMPRESSION: No central vessel occlusion. No intracranial aneurysm. ACT 112: Negative or not required by law. Electronically signed by: Leo Pastrana M.D. 11/03/2021 4:28 PM
--- NOTE | 2021-11-03 16:34 | CT Scan Report ---
CT angio neck with con CLINICAL HISTORY: Stroke Like Symptoms TECHNIQUE: CT angiography of the neck was performed following intravenous administration of iodinated contrast. Coronal and sagittal MIPS were obtained from the axial data set and were submitted for rev iew. Automated dose lowering techniques and/or adjustment according to patient size were utilized fo r this examination. All measurements were calculated based on NASCET criteria. CT DOSE: 1796.76 mGy.cm Comparison: None available at the time of this dictation. FINDINGS: Partial visualization of a partially calcified nodule in the right upper lobe. Remainder of the soft tissues are unremarkable. CTA Neck: A 3 vessel aortic arch is shown. Atherosclerotic plaque is present in the aortic arch and at the origin of the great vessels. The common carotid, external carotid, cervical segments of the i nternal carotid arteries, and the cervical segments of the vertebral arteries are patent without hemo dynamically significant stenosis. The vertebral arteries are codominant. IMPRESSION: No occlusion, hemodynamically significant stenosis, or dissection in the major cervical arteries. Ath erosclerotic disease seen. Assessment of stenosis of the internal carotid arteries is based on NASCET criteria. ACT 112: Negative or not required by law. Electronically signed by: Brandon Flowers M.D. 11/03/2021 4:33 PM
[2021-11-03 17:53] LABS: Appearance Urine Clear (Clear); Bacteria Urine Automated Negative (Negative); Bilirubin Urine Negative (Negative); Blood Urine Trace (Negative); Color Urine Yellow; Glucose Urine UA Negative (Negative); Ketones Urine Negative (Negative); Leukocyte Esterase Urine Negative (Negative); Nitrite Urine Negative (Negative); Protein Urine Negative (Negative); RBC Urine Automated 0-4 /hpf (0-4); Specific Gravity Urine > 1.045 (1.000-1.030); Urobilinogen Urine Negative (Negative); pH Urine 5.5 (4.5-7.5)
[2021-11-03 18:02] LABS: Potassium 3.9 mmol/L (3.5-5.1)
[2021-11-03] MEDS ORDERED: ACETAMINOPHEN 325 MG TAB PO PRN (19:02)
[2021-11-03] MEDS ORDERED: POLYETHYLENE (MIRALAX) 17 GM PACK PO PRN (19:02)
[2021-11-03] MEDS ORDERED: ONDANSETRON INJ 2 MG/ML 2 ML VIAL IV PRN (19:02)
--- NOTE | 2021-11-03 19:39 | History & Physical Report ---
Date of Service November 03, 2021 Assessment & Plan (1) Weakness: Plan: Patient is an 86-year-old male with recent hospitalization for COVID-19 with weakness presenting to the hospital for evaluation of weakness status post 30 days of rehab. Weakness -Generalized weakness in the setting of recent COVID-19 infection with rigidity noted on examination -Concern for Parkinson's based off of physical exam: Rigidity, weakness, progression over past year -Pending lab orders at the time of writing this note: RPR, vitamin B12, TSH, Lyme titer, ck -CTA of head and neck negative for blockage, symptoms not indicative of stroke -Consult neurology for evaluation, appreciate recommendations -PT and OT consult -Fall precautions HFpEF - No evidence of acute exacerbation today. - Lasix40 mg po daily with potassium 20 mEq - Dr Toni Painter, [facility], is his primary undercoater. - Echo in 04/2021 with EF 55-60%, severely enlarged left atrium, valve gradients of prosthetic valves wnl. - Daily BMP History of atrial fibrillation -Normal sinus rhythm today -Continue sotalol, Coumadin for anticoagulation History of aortic valve replacement - Follows with Dr. Toni Painter with [facility]. - On Coumadin, 8 mg Sunday and Sunday, 6 mg all other days per rx filled 08/29. - INR today 2.8, goal 2.5-3.5. These are typically checked via [facility] - Repeat INR in AM Diet: Heart healthy DVT prophylaxis: Warfarin Disposition: [facility] with telemetry CODE STATUS: DNR/DNI (2) (HFpEF) heart failure with preserved ejection fraction: (3) History of atrial fibrillation: (4) CKD (chronic kidney disease), stage III: History of Present Illness Chief Complaint: Weakness Primary Care Provider: Deric Tello MD Patient is an 86-year-old male with a past medical history of 2 valve rep lacements with chronic anticoagulation, preserved ejection fraction congestive heart failure, recent COVID-19 diagnosis with admission to the hospital, weakness with 1 month of recent rehabilitation, atrial fibrillation, CKD 3, obstructive sleep apnea, restrictive lung disease, hypercholesterolemia, CAD, and BPH presenting to the hospital for the chief complaint of weakness. Patient has family present who provides additional history of the patient's current illness. Patient reports that he was recently admitted to the hospital for COVID-19 diagnosis with generalized weakness and PAOLO. Patient was treated appropriately and was evaluated by physical therapy and Occupational Therapy recommended that he received acute rehab. After discharge patient was in acute rehab for 30 days. At the time of discharge from the hospital he could not ambulate and had to be transported via wheelchair, at the time of discharge from acute rehab, he was able to ambulate with a walker albeit with difficulty. Prior to his admission to the hospital with COVID-19, he was able to ambulate without assistance but did have difficulty with rising from a chair. Patient had a follow-up appointment with his primary care provider today who was concerned for the patient's current symptoms and recommend he go to the emergency room for further evaluation. Family and patient note that he has been dealing with slow progressive weakness for the past few months to year that the patient attributed to old age. Reports stiffness as an ongoing issue for many months. is additionally concerned about when the patient is ambulating with a walker that his feet are inverting more so on the right than on the left. This has not been an issue in the past. denies a history of flat affect. No family history of Parkinson's noted. No recent exposure to pesticides or fertilizers. Otherwise patient denies fevers, chills, chest pain, shortness of breath, abdominal pain, or urinary symptoms. Patient has no other complaints at this time. Allergies Allergy/AdvReac Type Severity Reaction Status Date / Time Penicillins Allergy Intermediate RASH Verified 11/03/21 14:53 celecoxib [From Celebrex] Allergy Unknown Unknown Verified 11/03/21 14:53 cyclobenzaprine Allergy Unknown Unknown Verified 11/03/21 14:53 [From Flexeril] simvastatin AdvReac Intermediate MUSCLE PAIN Verified 11/03/21 14:53 Home Medications Medication Instructions Recorded Confirmed Type atorvastatin 20 mg tablet 20 mg PO HS 03/04/19 11/03/21 History furosemide 40 mg tablet 20 mg PO QAM 03/04/19 11/03/21 History potassium chloride 20 mEq oral 20 meq PO QAM 11/12/19 11/03/21 History packet (Klor-Con) sotalol 80 mg tablet 40 mg PO QAM 11/12/19 11/03/21 History warfarin 2 mg tablet 0 mg PO DIRECTED 07/12/21 11/03/21 History acetaminophen 500 mg tablet 1,000 mg PO BID PRN #30 tab 07/18/21 11/03/21 Rx (Tylenol Extra Strength) diclofenac sodium 1 % topical gel 4 g EXT QID PRN 11/03/21 11/03/21 History (Voltaren Arthritis Pain) lidocaine 5 % topical patch 1 patch TRANSDERMAL QAM PRN 11/03/21 11/03/21 History vit C,E,zinc,copper-kbbbg2o 250 2 cap PO QAM 11/03/21 11/03/21 History mg-lutein 5 mg-zeaxanthin 1 mg capsule Past Med/Surg History Medical History History of atrial fibrillation History of cardioversion Hx of cardiac murmur Hypertension Macular degeneration GETS SHOTS IN EYES FOR TREATMENT Q8-10 WEEKS Restless leg syndrome Ventral hernia Surgical History History of aortic valve replacement AT AGE 58 (DENICE TAYLOR) History of colonoscopy History of inguinal hernia repair LEFT X 2 History of left cataract surgery 11/19/2019. propofol given. 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 Feels Safe at Home: Yes Safety Concerns: Feels Safe At This Time Assistive Devices: Glasses and Walker Review of Systems Review of Systems: All systems reviewed & are unremarkable except as noted in HPI & below Physical Exam Constitutional: WD/WN, vitals as above well developed and well nourished; no acute distress Eyes: normal accommodation, EOM intact bilaterally, reactive pupils, + pinpoint pupils and + nystagmus (Horizontal) ENMT: Throat: uvula midline Neck: trachea midline, no thyromegaly Respiratory: normal respiratory effort, lungs clear to auscultation Cardiovascular: Rate/Rhythm: regular rate and regular rhythm Heart Sounds: + murmur (2 out of 6 holosystolic best auscultated at the second left intercostal) Vessels: no JVD Gastrointestinal (Abdomen): normal bowel sounds, soft, nontender, no hepatosplenomegaly Musculoskeletal: Head/Neck/Chest: normocephalic and head atraumatic Extremities: + muscle atrophy (Of the calves bilaterally) and + foot abnormality Ankle: + limited ROM of ankle (Bilaterally) Skin: no rashes, warm and dry Neurologic: patellar DTR's 2+ bilat, sensation intact CN's II-XI intact bilaterally and moves all extremities Motor/Sensory: no tremor Cranial Nerves: normal accommodation, normal facial strength, tongue midline and symmetric palate elevation Coordination: normal wgrhwv-[id number]-kade test Psychiatric: A+Ox3, euthymic affect Results & Data Results & Data ([facility]) Vital Signs (Past 12 Hours) Vital Signs Temp Pulse Pulse Resp BP BP Pulse Ox 11/03/21 18:00 60 17 140/65 98 11/03/21 16:00 59 L 19 140/65 97 11/03/21 14:02 54 L 19 120/66 98 11/03/21 12:40 36.6 C 60 20 123/72 95 Code Status & VTE Plan VTE Prophylaxis Plan VTE Prophylaxis will be ordered: Yes Supervising Physician Co-Signing Physician Notes Patient seen and examined at bedside. I performed a history and physical examination DURING FACE TO FACE ENCOUNTER. I discussed case and plan of care with patient and Dr. Schuler. I reviewed above note and agree with it. 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 Will consult neurology.
[2021-11-03] MEDS ORDERED: DICLOFENAC SOD 1% GEL 100 GM TUBE EXT PRN (20:40)
[2021-11-03] MEDS ORDERED: LIDOCAINE 5% 1 PATCH TD PRN (20:40)
[2021-11-03 21:33] LABS: Lyme Ab IgG w/WB Rflx Negative (Negative); Lyme Ab IgM w/WB Rflx Negative (Negative)
[2021-11-03] MEDS: ATORVASTATIN 20 MG TAB PO SCH (21:35)
[2021-11-04 00:54] LABS: Rapid Plasma Reagin Nonreactive (Nonreactive)
[2021-11-04 06:33] LABS: Basophils # (auto) 0.02 K/uL (0-0.2); Basophils % (auto) 0.2 %; Eosinophils # (auto) 0.46 K/uL (0-0.5); Eosinophils % (auto) 5.2 %; Hematocrit (blood only) 33.5 % (42-52); Hemoglobin 11.3 g/dL (14.0-18.0); Immature Granulocytes # (auto) 0.02 K/uL (0.00-0.02); Immature Granulocytes % (auto) 0.2 %; Lymphocytes # (auto) 1.48 K/uL (1.2-3.4); Lymphocytes % (auto) 16.9 %; Mean Corpuscular Hemoglobin 30.3 pg (25-34); Mean Corpuscular Hgb Conc 33.7 g/dL (32-36); Mean Corpuscular Volume 89.8 fL (80-100); Mean Platelet Volume 10.2 fL (7.4-10.4); Monocytes # (auto) 1.82 K/uL (0.11-0.59); Monocytes % (auto) 20.7 %; Neutrophils # (auto) 4.98 K/uL (1.4-6.5); Neutrophils % (auto) 56.8 %; Platelet Count 303 K/uL (130-400); RDW Coefficient of Variation 14.4 % (11.5-14.5); RDW Standard Deviation 48.3 fL (36.4-46.3); Red Blood Count 3.73 M/uL (4.7-6.1); White Blood Count 8.78 K/uL (4.8-10.8)
[2021-11-04 06:48] LABS: INR 2.6 (0.9-1.1); Prothrombin Time 26.1 Seconds (9.0-12.0)
[2021-11-04 07:02] LABS: BUN Creatinine Ratio 20.6 (10-20); Calcium 8.8 mg/dl (8.5-10.1); Creatinine Clr Calc Pharmacy 48.7 ml/min; Est GFR (African American) 59.9 ml/min; Est GFR (Non-African American) 51.7 ml/min; Potassium 3.9 mmol/L (3.5-5.1)
[2021-11-04] MEDS: FUROSEMIDE 20 MG TAB PO SCH (08:28)
[2021-11-04] MEDS: SOTALOL HCL 80 MG TAB PO SCH (08:28)
[2021-11-04] MEDS: POTASSIUM CHLORIDE PWD 20 MEQ PACK PO SCH (08:28)
--- NOTE | 2021-11-04 08:45 | Neurology Consultation ---
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 He has considerable atrophy affecting the distal right lower limb, prominent longitudinal arch, hammertoe deformity, atrophy of the tibialis musculature, associated ankle joint stiffness. The left foot also has a moderately neuropathic appearance but much less so than the right. 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 However, patient recalls having the Salk (injection) vaccine. 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 However, patient's left foot also has a slight neuropathic appearance and it is possible he could have an asymmetric hereditary sensorimotor neuropathy (i.e. Uzcevcv-Syfrc-Lcvxp disease). He does report that his mother had very similar appearing feet. It would not be unreasonable to obtain an outpatient EMG/NCS of both lower limbs. Would consider getting this EMG completed at a tertiary center given my concern for chronic motor neuron/post polio type of picture. I do not find any clinical signs or symptoms that would suggest Parkinson's disease. He does not have a resting tremor, bradykinesia, or true rigidity. Patient's clinical presentation does not seem consistent with an acute or subacute stroke. I do note that he has experienced significant functional decline after a prolonged illness with COVID-19 infection. I also note that he has had a previous extensive imaging evaluation including MRI of the cervical, thoracic, and lumbar spine in 2018 for further assessment of spinal pain, stiffness, and lower extremity weakness. It would not be unreasonable to obtain a brain MRI to more completely exclude an acute or subacute stroke. Again, would consider an outpatient EMG of both lower limbs as described above. Consultation with PT/OT No further immediate recommendations. History of Present Illness Reason for Consultation: Right leg weakness Requesting Physician: Tay Schuler DO Attending Physician: Woody Raphael History of Present Illness The patient is an 86-year-old male who was referred to the emergency department for further assessment of right leg weakness that was discovered by his PCP recently, after a prolonged convalescence from COVID-19 infection. The patient's right foot and leg has been noted to be atrophied, stiff and weak with a tendency to turn in with walking prompting concern for a neurological process. The patient indicates that his right leg became noticeably weak during his prolonged stay at rehabilitation. He has had considerable difficulty getting up from a chair and using his walker. He denies any muscular pain or numbness. He does not have a tremor. He denies any significant change in speech or swallowi ng. He denies any dizziness or vertigo. He denies any difficulty with weakness of the upper limbs. Past medical history notable for aortic and mitral valve replacement. He is on warfarin. History also notable for atrial fibrillation. He had an unremarkable CT of the head including CT angiogram of the head and neck. His lumbar spine CT was unremarkable as well. I note that he has had extensive imaging of the spine, MRI of the cervical, thoracic, and lumbar spine in 2018 completed for further assessment of spinal pain, stiffness and weakness of the lower limbs. Allergies Allergy/AdvReac Type Severity Reaction Status Date / Time Penicillins Allergy Intermediate RASH Verified 11/03/21 14:53 celecoxib [From Celebrex] Allergy Unknown Unknown Verified 11/03/21 14:53 cyclobenzaprine Allergy Unknown Unknown Verified 11/03/21 14:53 [From Flexeril] simvastatin AdvReac Intermediate MUSCLE PAIN Verified 11/03/21 14:53 Home Medications Medication Instructions Recorded Confirmed Type atorvastatin 20 mg tablet 20 mg PO HS 03/04/19 11/03/21 History furosemide 40 mg tablet 20 mg PO QAM 03/04/19 11/03/21 History potassium chloride 20 mEq oral 20 meq PO QAM 11/12/19 11/03/21 History packet (Klor-Con) sotalol 80 mg tablet 40 mg PO QAM 11/12/19 11/03/21 History warfarin 2 mg tablet 0 mg PO DIRECTED 07/12/21 11/03/21 History acetaminophen 500 mg tablet 1,000 mg PO BID PRN #30 tab 07/18/21 11/03/21 Rx (Tylenol Extra Strength) diclofenac sodium 1 % topical gel 4 g EXT QID PRN 11/03/21 11/03/21 History (Voltaren Arthritis Pain) lidocaine 5 % topical patch 1 patch TRANSDERMAL QAM PRN 11/03/21 11/03/21 History vit C,E,zinc,copper-ydsaj2y 250 2 cap PO QAM 11/03/21 11/03/21 History mg-lutein 5 mg-zeaxanthin 1 mg capsule Patient History Medical History History of atrial fibrillation History of cardioversion Hx of cardiac murmur Hypertension Macular degeneration GETS SHOTS IN EYES FOR TREATMENT Q8-10 WEEKS Restless leg syndrome Ventral hernia Surgical History History of aortic valve replacement AT AGE 58 (CLAUDIA DENICE) History of colonoscopy History of inguinal hernia repair LEFT X 2 History of left cataract surgery 11/19/2019. propofol given. 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 Feels Safe at Home: Yes Safety Concerns: Feels Safe At This Time Assistive Devices: Walker Review of Systems Constitutional: no fever and no chills Eyes: no blind spots and no diplopia Ear, Nose, Mouth, Throat: no ear pain and no hearing loss Respiratory: no cough and no dyspnea Cardiovascular: no chest pain and no palpitations Gastrointestinal: no constipation and no diarrhea/loose stools Genitourinary: no urinary incontinence or no urinary urgency Musculoskeletal: as per Subjective / HPI, + muscle weakness and + muscle atrophy Integumentary: no rash and no lesions Neurologic: as per Subjective / HPI, + gait abnormality and + localized weakness; no loss of sensation, no headache(s) and no memory loss Psychiatric: no behavioral changes, no depression, no abnormal sleep pattern and no anxiety Hematologic / Lymphatic: no easy bruising and no lymphadenopathy Exam (Neuro) Constitutional: well developed and well nourished; no acute distress Eyes: normal visual buckley by confrontation, PERRL, normal accommodation and EOM intact bilaterally; no fundoscopic abnormality, no nystagmus and no papilledema Cardiovascular: Vessels: normal carotid upstroke; no carotid bruit Neurologic: Oriented to:: Person, Place and Time Memory: Short Term Intact and Remote Intact Attention: Span Intact and Concentration Intact Language: Naming Objects and Repeating Phrases Speech Fluency: negative Dysarthria Speech Aphasia: negative Aphasia Fund of Knowledge: Current Events, Past History and Vocabulary Cranial Nerves: Normal II (Visual buckley full to confrontation, visual acuity normal), III, IV, (Pupils equal round reactive to light and accommodation, eye movements normal), V (Facial sensation intact), VII (There is no facial droop or weakness), VIII (Hearing intact), IX, X (Palate elevates to midline), XI (Shoulder shrug intact) and XII (Tongue protrudes to midline) Motor Strength: Normal Upper Extremities; negative Normal Lower Extremities or Pronator Drift Motor Tone: Normal Lower Extremities and Normal Upper Extremities Muscle Bulk/Involuntary Movements: No Involuntary Movements and Muscle Atrophy Sensation: Light Touch Intact, Pain/Temperature Intact, Vibration Intact and Proprioception Intact Coordination: Normal; negative Limited Balance, Dysdiadochokinesia, Finger-Nose Abnormal or Heel-Zacarias Abnormal Deep Tendon Reflexes: Rt Triceps: 2+, Lt Triceps: 2+, Rt Biceps: 2+, Lt Biceps: 2+, Rt Brachioradialis: 2+, Lt Brachioradialis: 2+, Rt Patellar: 2+, Lt Patellar: 2+, Rt Ankle: 1+ and Lt Ankle: 1+ Special Tests: negative Babinski Present Details: Neuropathic appearing foot, especially the right, atrophy, prominent longitudin al arch, hammertoes. Atrophy of the distal right lower extremity noted as well. Results & Data ([facility]) Vital Signs (Past 12 Hours) Vital Signs Temp Pulse Pulse Pulse Resp BP BP 11/04/21 07:44 36.3 C L 65 16 127/66 11/04/21 02:47 36.9 C 68 20 104/55 L 11/04/21 00:05 60 11/03/21 23:24 36.9 C 94 H 18 147/74 H 11/03/21 21:59 36.3 C L 60 16 136/69 11/03/21 20:30 36.3 C L 16 136/69 Pulse Ox 11/04/21 07:44 97 11/04/21 02:47 92 11/04/21 00:05 11/03/21 23:24 94 11/03/21 21:59 95 11/03/21 20:30 95 Laboratory Results WBC 8.78, hemoglobin 11.3, hematocrit 33.5, MCV 89.8, platelet count 303, sodium 136, potassium 3.9, BUN 26, creatinine 1.26, glucose 88, calcium 8.8, magnesium 1.7, AST 13, ALT 13, total CK1 81, vitamin B12 357, TSH 3.267, RPR nonreactive, Lyme screening negative Diagnostic Findings CT of the head including CT angiography of the head and neck are as described in the history of present illness. Lumbar spine CT completed as well. I reviewed the images as well as the radiologist interpretation of these tests. No evidence of acute or subacute stroke. No evidence of significant vascular lesion. Does have generalized atrophy with an element of ventricular enlargement. Imaging not suggestive of normal pressure hydrocephalus. Degenerative changes noted in the lumbar spine, disc base narrowing, normal vertebral alignment. Electrocardiogram revealed sinus bradycardia with sinus arrhythmia and first- degree AV block. 48 bpm. Coding Level of Care Code 86072 Initial Inpt Care Lvl 3 Diagnoses Focal motor neuropathy G58.8
[2021-11-04] MEDS ORDERED: C E ZINC COPPER OMEGA3S LUT PO SCH (09:00)
[2021-11-04] MEDS: WARFARIN SOD 4 MG TAB PO SCH (17:02)
[2021-11-04] MEDS: ATORVASTATIN 20 MG TAB PO SCH (20:11)
--- NOTE | 2021-11-04 21:21 | Hospitalist Progress Note ---
Date of Service November 04, 2021 Assessment & Plan (1) Weakness: Plan: Patient is an 86-year-old male with recent hospitalization for COVID-19 with weakness presenting to the hospital for evaluation of weakness status post 30 days of rehab. Weakness -Concern over Charcot-isac tooth or post polio syndrome. -plan will be to obtain an EMG locally as an outpatient. Appreciate obtain Neurology -Generalized weakness in the setting of recent COVID-19 infection with rigidity noted on examination -Concern for Parkinson's based off of physical exam: Rigidity, weakness, progression over past year -CTA of head and neck negative for blockage, symptoms not indicative of stroke -PT and OT consult -Fall precautions HFpEF - No evidence of acute exacerbation today. - Lasix40 mg po daily with potassium 20 mEq - Dr Toni Painter, [facility], is his primary biological science aide. - Echo in 04/2021 with EF 55-60%, severely enlarged left atrium, valve gradients of prosthetic valves wnl. - Daily BMP History of atrial fibrillation -Normal sinus rhythm today -Continue sotalol, Coumadin for anticoagulation History of aortic valve replacement - Follows with Dr. Toni Painter with [facility] cardi[facility]. - On Coumadin, 8 mg Sunday and Sunday, 6 mg all other days per rx filled 08/29. - INR today 2.8, goal 2.5-3.5. These are typically checked via [facility] - Repeat INR remains therapeutic. Diet: Heart healthy DVT prophylaxis: Warfarin Disposition: [facility] with telemetry CODE STATUS: DNR/DNI (2) (HFpEF) heart failure with preserved ejection fraction: (3) History of atrial fibrillation: (4) CKD (chronic kidney disease), stage III: Admission and Anticipated Discharge Date Admission Date: November 03, 2021 Subjective 86 yo male reports no new symptoms. Review of Systems Review of Systems: All systems reviewed & are unremarkable except as noted in HPI & below Physical Exam Physical Exam: Constitutional: WD/WN, vitals as above well developed and well nourished; no acute distress Eyes: normal accommodation, EOM intact bilaterally, reactive pupils ENMT: Throat: uvula midline Neck: trachea midline, no thyromegaly Respiratory: normal respiratory effort, lungs clear to auscultation Cardiovascular: Rate/Rhythm: regular rate and regular rhythm Heart Sounds: + murmur (2 out of 6 holosystolic best auscultated at the second left intercostal) Vessels: no JVD Gastrointestinal (Abdomen): normal bowel sounds, soft, nontender, no hepatosplenomegaly Musculoskeletal: Head/Neck/Chest: normocephalic and head atraumatic Extremities: + muscle atrophy (Of the calves bilaterally) and + foot abnormality Ankle: + limited ROM of ankle (Bilaterally) Skin: no rashes, warm and dry Neurologic: patellar DTR's 2+ bilat, sensation intact CN's II-XI intact bilaterally and moves all extremities Motor/Sensory: no tremor Cranial Nerves: normal accommodation, normal facial strength, tongue midline and symmetric palate elevation Coordination: normal [id number] test Psychiatric: A+Ox3, euthymic affect Results & Data Results & Data ([facility]) Vital Signs (Past 12 Hours) Vital Signs Temp Pulse Pulse Resp BP Pulse Ox 11/04/21 19:18 36.2 C L 59 L 18 138/68 95 11/04/21 18:15 58 L 11/04/21 14:46 36.7 C 76 18 144/69 H 97 11/04/21 13:12 37.0 C 56 L 16 133/68 96 11/04/21 09:46 56 L PG Care Time/CCT Total # of Minutes Spent Total Time Spent with Patient: Total time spent is greater than 50% in coordination of care (as documented) at patient's floor/unit and/or counseling patient: Coding Level of Care Code 67293 Subseq Obs Care Lvl 2 Diagnoses Weakness R53.1 (HFpEF) heart failure with preserved ejection fraction I50.30 History of atrial fibrillation Z86.79 CKD (chronic kidney disease), stage III N18.30
[2021-11-05] MEDS ORDERED: MICONAZOLE NITRATE POWDER 43 GM EXT PRN (06:10)
[2021-11-05 06:22] LABS: Basophils # (auto) 0.01 K/uL (0-0.2); Basophils % (auto) 0.1 %; Eosinophils # (auto) 0.38 K/uL (0-0.5); Eosinophils % (auto) 4.7 %; Hematocrit (blood only) 33.8 % (42-52); Hemoglobin 11.1 g/dL (14.0-18.0); Immature Granulocytes # (auto) 0.01 K/uL (0.00-0.02); Immature Granulocytes % (auto) 0.1 %; Lymphocytes # (auto) 1.35 K/uL (1.2-3.4); Lymphocytes % (auto) 16.7 %; Mean Corpuscular Hemoglobin 29.3 pg (25-34); Mean Corpuscular Hgb Conc 32.8 g/dL (32-36); Mean Corpuscular Volume 89.2 fL (80-100); Mean Platelet Volume 9.9 fL (7.4-10.4); Monocytes # (auto) 1.69 K/uL (0.11-0.59); Monocytes % (auto) 20.9 %; Neutrophils # (auto) 4.63 K/uL (1.4-6.5); Neutrophils % (auto) 57.5 %; Platelet Count 292 K/uL (130-400); RDW Coefficient of Variation 14.3 % (11.5-14.5); RDW Standard Deviation 46.8 fL (36.4-46.3); Red Blood Count 3.79 M/uL (4.7-6.1); White Blood Count 8.07 K/uL (4.8-10.8)
[2021-11-05 06:45] LABS: BUN Creatinine Ratio 20.3 (10-20); Calcium 8.7 mg/dl (8.5-10.1); Creatinine Clr Calc Pharmacy 42.3 ml/min; Est GFR (African American) 51.4 ml/min; Est GFR (Non-African American) 44.3 ml/min; Potassium 3.9 mmol/L (3.5-5.1)
--- NOTE | 2021-11-05 08:03 | Magnetic Resonance Report ---
MR brain wo con CLINICAL HISTORY: Lower extremity weakness for one month. Patient reports inability to ambulate.. COMPARISON STUDY: No previous studies for comparison. TECHNIQUE: Multiplanar multisequence images of the Brain were performed without IV contrast. Diffusi on weighted imaging and ADC mapping was also performed. FINDINGS: Extra-axial space: There is no evidence for a subdural hematoma, There are no extra-axial fluid ibis ections. Ventricles and cisterns: The ventricles are moderately dilated bilaterally. There is no evidence for midline shift or mass effect. Parenchyma: There is no evidence for an acute hemorrhage or infarct. No acute diffusion abnormalities are noted on diffusion weighted imaging or ADC mapping. There is normal maharaj-white differentiation. There is moderate cerebral cortical atrophy present. The sulci and gyri appear normal without efface ment. The midline structures are unremarkable. The posterior fossa structures appear normal. There is no evidence for mass lesion. Osseous structures: The paranasal sinuses are well aerated. The mastoid air cells are well aerated. Soft tissues: No focal soft tissue abnormalities are identified. IMPRESSION: 1. No acute intracranial abnormalities. 2. Moderate cerebral cortical atrophy ACT 112: Negative or not required by law. Electronically signed by: Zion Urias M.D. 11/05/2021 8:01 AM
[2021-11-05] MEDS: POTASSIUM CHLORIDE PWD 20 MEQ PACK PO SCH (08:28)
[2021-11-05] MEDS: FUROSEMIDE 20 MG TAB PO SCH (08:28)
[2021-11-05] MEDS: SOTALOL HCL 80 MG TAB PO SCH (08:28)
[2021-11-05] MEDS: WARFARIN SOD 6 MG TAB PO SCH (17:21)
[2021-11-05] MEDS: ATORVASTATIN 20 MG TAB PO SCH (20:10)
--- NOTE | 2021-11-05 20:15 | Hospitalist Progress Note ---
Date of Service November 05, 2021 Assessment & Plan (1) Weakness: Plan: Patient is an 86-year-old male with recent hospitalization for COVID-19 with weakness presenting to the hospital for evaluation of weakness status post 30 days of rehab. Weakness -Concern over Charcot-isac tooth or post polio syndrome. -plan will be to obtain an EMG locally as an outpatient. Appreciate obtain Neurology Patient will benefit from rehab. Family is agreeable once seeing how patient ambulates. -MRI finding: cortical cerebral atrophy -Generalized weakness in the setting of recent COVID-19 infection with rigidity noted on examination -Concern for Parkinson's based off of physical exam: Rigidity, weakness, progression over past year -PT and OT consult -Fall precautions HFpEF - No evidence of acute exacerbation today. - Lasix40 mg po daily with potassium 20 mEq - Dr Toni Painter, [facility], is his primary border patrol officer. - Echo in 04/2021 with EF 55-60%, severely enlarged left atrium, valve gradients of prosthetic valves wnl. - Daily BMP History of atrial fibrillation -Normal sinus rhythm today -Continue sotalol, Coumadin for anticoagulation History of aortic valve replacement - Follows with Dr. Toni Painter with [facility] cardiology. - On Coumadin, 8 mg Sunday and Sunday, 6 mg all other days per rx filled 08/29. - INR today 2.8, goal 2.5-3.5. These are typically checked via [facility] - Repeat INR remains therapeutic. Diet: Heart healthy DVT prophylaxis: Warfarin Disposition: [facility] with telemetry CODE STATUS: DNR/DNI (2) (HFpEF) heart failure with preserved ejection fraction: (3) History of atrial fibrillation: (4) CKD (chronic kidney disease), stage III: Admission and Anticipated Discharge Date Admission Date: November 05, 2021 Subjective Patient reports no new symptoms. Review of Systems Review of Systems: All systems reviewed & are unremarkable except as noted in HPI & below Physical Exam Physical Exam: Constitutional: WD/WN, vitals as above well developed and well nourished; no acute distress Eyes: normal accommodation, EOM intact bilaterally, reactive pupils ENMT: Throat: uvula midline Neck: trachea midline, no thyromegaly Respiratory: normal respiratory effort, lungs clear to auscultation Cardiovascular: Rate/Rhythm: regular rate and regular rhythm Heart Sounds: + murmur (2 out of 6 holosystolic best auscultated at the second left intercostal) Vessels: no JVD Gastrointestinal (Abdomen): normal bowel sounds, soft, nontender, no hepatosplenomegaly Musculoskeletal: Head/Neck/Chest: normocephalic and head atraumatic Extremities: + muscle atrophy (Of the calves bilaterally) and + foot abnormality Ankle: + limited ROM of ankle (Bilaterally) Skin: no rashes, warm and dry Neurologic: patellar DTR's 2+ bilat, sensation intact CN's II-XI intact bilaterally and moves all extremities Motor/Sensory: no tremor Cranial Nerves: normal accommodation, normal facial strength, tongue midline and symmetric palate elevation Coordination: normal bhybxy-wo-oovf test Psychiatric: A+Ox3, euthymic affect Results & Data Results & Data ([facility]) Vital Signs (Past 12 Hours) Vital Signs Temp Pulse Pulse Resp BP Pulse Ox 11/05/21 16:32 56 L 11/05/21 16:03 36.5 C 61 16 124/61 94 11/05/21 11:27 36.8 C 62 16 121/49 L 96 11/05/21 10:05 62 PG Care Time/CCT Total # of Minutes Spent Total Time Spent with Patient: Total time spent is greater than 50% in coordination of care (as documented) at patient's floor/unit and/or counseling patient: Coding Level of Care Code 92444 Subseq Hosp Care Lvl 3 Diagnoses Weakness R53.1 (HFpEF) heart failure with preserved ejection fraction I50.30 History of atrial fibrillation Z86.79 CKD (chronic kidney disease), stage III N18.30 Time Spent (min) 35
[2021-11-05] MEDS: ACETAMINOPHEN 500 MG TAB PO PRN (23:52)
--- NOTE | 2021-11-06 06:27 | Ultrasound Report ---
RIGHT LOWER EXTREMITY VENOUS DOPPLER CLINICAL HISTORY: Right leg pain. Evaluate for deep venous thrombus. COMPARISON STUDY: No previous studies for comparison. TECHNIQUE: Sonography of the deep venous system of the right lower extremity was performed. Compress ion and augmentation were evaluated. FINDINGS: The right common femoral, superficial femoral and popliteal veins were compressible. Augme ntation was normal. Flow was shown within the deep calf vessels. IMPRESSION: No evidence of deep venous thrombus within the right lower extremity. ACT 112: Negative or not required by law. Electronically signed by: Leo Pastrana M.D. 11/06/2021 6:26 AM
[2021-11-06 06:30] LABS: Basophils # (auto) 0.01 K/uL (0-0.2); Basophils % (auto) 0.1 %; Eosinophils # (auto) 0.38 K/uL (0-0.5); Eosinophils % (auto) 3.5 %; Hematocrit (blood only) 34.3 % (42-52); Hemoglobin 11.6 g/dL (14.0-18.0); Immature Granulocytes # (auto) 0.01 K/uL (0.00-0.02); Immature Granulocytes % (auto) 0.1 %; Lymphocytes # (auto) 1.46 K/uL (1.2-3.4); Lymphocytes % (auto) 13.5 %; Mean Corpuscular Hemoglobin 30.2 pg (25-34); Mean Corpuscular Hgb Conc 33.8 g/dL (32-36); Mean Corpuscular Volume 89.3 fL (80-100); Mean Platelet Volume 10.4 fL (7.4-10.4); Monocytes # (auto) 1.93 K/uL (0.11-0.59); Monocytes % (auto) 17.9 %; Neutrophils % (auto) 64.9 %; Platelet Count 294 K/uL (130-400); RDW Coefficient of Variation 14.2 % (11.5-14.5); RDW Standard Deviation 46.9 fL (36.4-46.3); Red Blood Count 3.84 M/uL (4.7-6.1); White Blood Count 10.79 K/uL (4.8-10.8)
[2021-11-06 06:50] LABS: BUN Creatinine Ratio 23.3 (10-20); Calcium 8.9 mg/dl (8.5-10.1); Creatinine Clr Calc Pharmacy 50.4 ml/min; Est GFR (African American) 63.5 ml/min; Est GFR (Non-African American) 54.8 ml/min
[2021-11-06] MEDS: SOTALOL HCL 80 MG TAB PO SCH (08:30)
[2021-11-06] MEDS: FUROSEMIDE 20 MG TAB PO SCH (08:30)
[2021-11-06] MEDS: POTASSIUM CHLORIDE PWD 20 MEQ PACK PO SCH (08:30)
[2021-11-06 10:33] LABS: Appearance Urine Clear (Clear); Bacteria Urine Automated 1+ (Negative); Bilirubin Urine Negative (Negative); Blood Urine Negative (Negative); Cast Urine Automated 0 /lpf (0-5); Color Urine Yellow; Epithelial Cell Urine Auto >30 /lpf (0-5); Glucose Urine UA Negative (Negative); Ketones Urine Negative (Negative); Leukocyte Esterase Urine 1+ (Negative); Nitrite Urine Negative (Negative); Protein Urine Negative (Negative); RBC Urine Automated 0-4 /hpf (0-4); Specific Gravity Urine 1.013 (1.000-1.030); Urobilinogen Urine Negative (Negative)
[2021-11-06 10:38] LABS: INR 2.4 (0.9-1.1); Prothrombin Time 24.6 Seconds (9.0-12.0)
[2021-11-06] MEDS: cefTRIAXone SODIUM 2,000 MG in DEXTROSE 5% 50 ML IV SCH (15:46)
[2021-11-06] MEDS: WARFARIN SOD 6 MG TAB PO SCH (17:14)
[2021-11-06] MEDS: ATORVASTATIN 20 MG TAB PO SCH (20:13)
--- NOTE | 2021-11-06 21:25 | Hospitalist Progress Note ---
Date of Service November 06, 2021 Assessment & Plan (1) Weakness: Plan: Patient is an 86-year-old male with recent hospitalization for COVID-19 with weakness presenting to the hospital for evaluation of weakness status post 30 days of rehab. Weakness -Concern over Charcot-isac tooth or post polio syndrome. -plan will be to obtain an EMG locally as an outpatient. Appreciate obtain Neurology Patient will benefit from rehab. Family is agreeable once seeing how patient ambulates. -MRI finding: cortical cerebral atrophy -Generalized weakness in the setting of recent COVID-19 infection with rigidity noted on examination -Concern for Parkinson's based off of physical exam: Rigidity, weakness, progression over past year Patient will require placement. -PT and OT consult -Fall precautions UTI-CYSTITIS Will place on ceftriaxone and monitor. HFpEF - No evidence of acute exacerbation today. - Lasix40 mg po daily with potassium 20 mEq - Dr Toni Painter, [facility], is his primary toll patrolman. - Echo in 04/2021 with EF 55-60%, severely enlarged left atrium, valve gradients of prosthetic valves wnl. - Daily BMP History of atrial fibrillation -Normal sinus rhythm today -Continue sotalol, Coumadin for anticoagulation History of aortic valve replacement - Follows with Dr. Toni Painter with [facility] cardiology. - On Coumadin, 8 mg Sunday and Sunday, 6 mg all other days per rx filled 08/29. - INR today 2.8, goal 2.5-3.5. These are typically checked via [facility] - Repeat INR remains therapeutic. Diet: Heart healthy DVT prophylaxis: Warfarin Disposition: [facility] with telemetry CODE STATUS: DNR/DNI (2) (HFpEF) heart failure with preserved ejection fraction: (3) History of atrial fibrillation: (4) CKD (chronic kidney disease), stage III: Admission and Anticipated Discharge Date Admission Date: November 05, 2021 Subjective Patient reports no new symptoms. Except for dysuria. Patient denies any fever or chills. Review of Systems Review of Systems: All systems reviewed & are unremarkable except as noted in HPI & below Physical Exam Physical Exam: Constitutional: WD/WN, vitals as above well developed and well nourished; no acute distress Eyes: normal accommodation, EOM intact bilaterally, reactive pupils ENMT: Throat: uvula midline Neck: trachea midline, no thyromegaly Respiratory: normal respiratory effort, lungs clear to auscultation Cardiovascular: Rate/Rhythm: regular rate and regular rhythm Heart Sounds: + murmur (2 out of 6 holosystolic best auscultated at the second left intercostal) Vessels: no JVD Gastrointestinal (Abdomen): normal bowel sounds, soft, nontender, no hepatosplenomegaly Musculoskeletal: Head/Neck/Chest: normocephalic and head atraumatic Extremities: + muscle atrophy (Of the calves bilaterally) and + foot abnormality Ankle: + limited ROM of ankle (Bilaterally) Skin: no rashes, warm and dry Neurologic: patellar DTR's 2+ bilat, sensation intact CN's II-XI intact bilaterally and moves all extremities Motor/Sensory: no tremor Cranial Nerves: normal accommodation, normal facial strength, tongue midline and symmetric palate elevation Coordination: normal wcbqfu-ju-jxoy test Psychiatric: A+Ox3, euthymic affect PG Care Time/CCT Total # of Minutes Spent Total Time Spent with Patient: Total time spent is greater than 50% in coordination of care (as documented) at patient's floor/unit and/or counseling patient: Coding Level of Care Code 13040 Subseq Hosp Care Lvl 2 Diagnoses Weakness R53.1 (HFpEF) heart failure with preserved ejection fraction I50.30 History of atrial fibrillation Z86.79 CKD (chronic kidney disease), stage III N18.30
[2021-11-07] MEDS: ACETAMINOPHEN 500 MG TAB PO PRN ×3 (00:24→21:32)
[2021-11-07 07:07] LABS: INR 2.8 (0.9-1.1); Prothrombin Time 28.2 Seconds (9.0-12.0)
[2021-11-07] MEDS: POTASSIUM CHLORIDE PWD 20 MEQ PACK PO SCH (08:35)
[2021-11-07] MEDS: FUROSEMIDE 20 MG TAB PO SCH (08:35)
[2021-11-07] MEDS: SOTALOL HCL 80 MG TAB PO SCH (08:35)
[2021-11-07] MEDS: cefTRIAXone SODIUM 2,000 MG in DEXTROSE 5% 50 ML IV SCH (15:03)
[2021-11-07] MEDS: WARFARIN SOD 4 MG TAB PO SCH (16:41)
[2021-11-07] MEDS: ATORVASTATIN 20 MG TAB PO SCH (21:32)
--- NOTE | 2021-11-07 21:51 | Hospitalist Progress Note ---
Date of Service November 07, 2021 Assessment & Plan (1) Weakness: Plan: Patient is an 86-year-old male with recent hospitalization for COVID-19 with weakness presenting to the hospital for evaluation of weakness status post 30 days of rehab. Weakness -Concern over Charcot-isac tooth or post polio syndrome. -plan will be to obtain an EMG locally as an outpatient. Appreciate obtain Neurology Patient will benefit from rehab. Family is agreeable once seeing how patient ambulates. -MRI finding: cortical cerebral atrophy -Generalized weakness in the setting of recent COVID-19 infection with rigidity noted on examination -Concern for Parkinson's based off of physical exam: Rigidity, weakness, progression over past year Patient will require placement. -PT and OT consult -Fall precautions UTI-CYSTITIS Will place on ceftriaxone and monitor. Patient received second dose of ceftriaxone today. culture showed gram positive strep will hold corticosteroid injection while recovering from UTI. HFpEF - No evidence of acute exacerbation today. - Lasix40 mg po daily with potassium 20 mEq - Dr Toni Painter, [facility], is his primary top collar baster. - Echo in 04/2021 with EF 55-60%, severely enlarged left atrium, valve gradients of prosthetic valves wnl. - Daily BMP History of atrial fibrillation -Normal sinus rhythm today -Continue sotalol, Coumadin for anticoagulation History of aortic valve replacement - Follows with Dr. Toni Painter with [facility] cardiology. - On Coumadin, 8 mg Sunday and Sunday, 6 mg all other days per rx filled 08/29. - INR today 2.8, goal 2.5-3.5. These are typically checked via [facility] - Repeat INR remains therapeutic. Diet: Heart healthy DVT prophylaxis: Warfarin Disposition: [facility] with telemetry CODE STATUS: DNR/DNI (2) (HFpEF) heart failure with preserved ejection fraction: (3) History of atrial fibrillation: (4) CKD (chronic kidney disease), stage III: Admission and Anticipated Discharge Date Admission Date: November 05, 2021 Subjective Patient reports no new symptoms. Updated . Patient reports he is not interested in surgery for his rotator cuff. May be interested in injection. Review of Systems Review of Systems: All systems reviewed & are unremarkable except as noted in HPI & below Physical Exam Physical Exam: Constitutional: WD/WN, vitals as above well developed and well nourished; no acute distress Eyes: normal accommodation, EOM intact bilaterally, reactive pupils ENMT: Throat: uvula midline Neck: trachea midline, no thyromegaly Respiratory: normal respiratory effort, lungs clear to auscultation Cardiovascular: Rate/Rhythm: regular rate and regular rhythm Heart Sounds: + murmur (2 out of 6 holosystolic best auscultated at the second left intercostal) Vessels: no JVD Gastrointestinal (Abdomen): normal bowel sounds, soft, nontender, no hepat osplenomegaly Musculoskeletal: Head/Neck/Chest: normocephalic and head atraumatic Extremities: + muscle atrophy (Of the calves bilaterally) and + foot abnormality Ankle: + limited ROM of ankle (Bilaterally) Skin: no rashes, warm and dry Neurologic: patellar DTR's 2+ bilat, sensation intact CN's II-XI intact bilaterally and moves all extremities Motor/Sensory: no tremor Cranial Nerves: normal accommodation, normal facial strength, tongue midline and symmetric palate elevation Coordination: normal urslme-vn-rpig test Psychiatric: A+Ox3, euthymic affect Results & Data Results & Data ([facility]) Vital Signs (Past 12 Hours) Vital Signs Temp Pulse Resp BP Pulse Ox 11/07/21 18:12 36.3 C L 63 18 114/72 97 11/07/21 14:53 37.1 C 58 L 18 120/60 95 PG Care Time/CCT Total # of Minutes Spent Total Time Spent with Patient: Total time spent is greater than 50% in coordination of care (as documented) at patient's floor/unit and/or counseling patient: Coding Level of Care Code 17274 Subseq Hosp Care Lvl 2 Diagnoses Weakness R53.1 (HFpEF) heart failure with preserved ejection fraction I50.30 History of atrial fibrillation Z86.79 CKD (chronic kidney disease), stage III N18.30 Time Spent (min) 25
[2021-11-08 07:24] LABS: Hematocrit (blood only) 33.4 % (42-52); Mean Corpuscular Hemoglobin 29.2 pg (25-34); Mean Corpuscular Hgb Conc 32.9 g/dL (32-36); Mean Corpuscular Volume 88.6 fL (80-100); Mean Platelet Volume 10.3 fL (7.4-10.4); Platelet Count 307 K/uL (130-400); RDW Coefficient of Variation 14.1 % (11.5-14.5); RDW Standard Deviation 45.6 fL (36.4-46.3); Red Blood Count 3.77 M/uL (4.7-6.1); White Blood Count 8.52 K/uL (4.8-10.8)
[2021-11-08 07:29] LABS: INR 3.2 (0.9-1.1); Prothrombin Time 31.9 Seconds (9.0-12.0)
[2021-11-08 07:49] LABS: BUN Creatinine Ratio 23.5 (10-20); Calcium 8.9 mg/dl (8.5-10.1); Creatinine Clr Calc Pharmacy 39.6 ml/min; Est GFR (African American) 47.4 ml/min; Est GFR (Non-African American) 40.9 ml/min
[2021-11-08] MEDS: FUROSEMIDE 20 MG TAB PO SCH (08:14)
[2021-11-08] MEDS: SOTALOL HCL 80 MG TAB PO SCH (08:14)
[2021-11-08] MEDS: POTASSIUM CHLORIDE PWD 20 MEQ PACK PO SCH (08:15)
--- NOTE | 2021-11-08 08:18 | Hospitalist Progress Note ---
Date of Service November 08, 2021 Assessment & Plan (1) Weakness: Plan: Patient is an 86-year-old male with recent hospitalization for COVID-19 with weakness presenting to the hospital for evaluation of weakness status post 30 days of rehab. Weakness -Concern over Charcot-isac tooth or post polio syndrome. -plan will be to obtain an EMG locally as an outpatient. Appreciate obtain Neurology Patient will benefit from rehab. Family is agreeable once seeing how patient ambulates. -MRI finding: cortical cerebral atrophy -Generalized weakness in the setting of recent COVID-19 infection with rigidity noted on examination -Concern for Parkinson's based off of physical exam: Rigidity, weakness, progression over past year Patient will require placement. Plan is for EMG as an outpatient. I walked with patient in the morning and the afternoon (walker), patient is a 2 assist to get up. -PT and OT consult -Fall precautions UTI-CYSTITIS Will place on ceftriaxone and monitor. Patient received second dose of ceftriaxone on 11/07 Transitioned to keflex PO. culture showed gram positive strep HFpEF - No evidence of acute exacerbation today. - Lasix40 mg po daily with potassium 20 mEq - Dr Toni Painter, [facility], is his primary winch stripper. - Echo in 04/2021 with EF 55-60%, severely enlarged left atrium, valve gradients of prosthetic valves wnl. - Daily BMP History of atrial fibrillation -Normal sinus rhythm today -Continue sotalol, Coumadin for anticoagulation History of aortic valve replacement - Follows with Dr. Toni Painter with [facility] cardiology. - On Coumadin, 8 mg Sunday and Sunday, 6 mg all other days per rx filled 08/29. - INR remains therapeutic, goal 2.5-3.5. These are typically checked via [facility] Coumadin clinic - Repeat INR remains therapeutic. Diet: Heart healthy DVT prophylaxis: Warfarin Disposition: [facility] with telemetry CODE STATUS: DNR/DNI (2) (HFpEF) heart failure with preserved ejection fraction: (3) History of atrial fibrillation: (4) CKD (chronic kidney disease), stage III: Admission and Anticipated Discharge Date Admission Date: November 05, 2021 Subjective Patient reports no new symptoms. Review of Systems Review of Systems: All systems reviewed & are unremarkable except as noted in HPI & below Physical Exam Physical Exam: Constitutional: WD/WN, vitals as above well developed and well nourished; no acute distress Eyes: normal accommodation, EOM intact bilaterally, reactive pupils ENMT: Throat: uvula midline Neck: trachea midline, no thyromegaly Respiratory: normal respiratory effort, lungs clear to auscultation Cardiovascular: Rate/Rhythm: regular rate and regular rhythm Heart Sounds: + murmur (2 out of 6 holosystolic best auscultated at the second left intercostal) Vessels: no JVD Gastrointestinal (Abdomen): normal bowel sounds, soft, nontender, no hepatosplenomegaly Musculoskeletal: Head/Neck/Chest: normocephalic and head atraumatic Extremities: + muscle atrophy (Of the calves bilaterally) and + foot abnormality Ankle: + limited ROM of ankle (Bilaterally) Skin: no rashes, warm and dry Neurologic: patellar DTR's 2+ bilat, sensation intact CN's II-XI intact bilaterally and moves all extremities Motor/Sensory: no tremor Cranial Nerves: normal accommodation, normal facial strength, tongue midline and symmetric palate elevation Coordination: normal tewcud-zq-cxru test Psychiatric: A+Ox3, euthymic affect Results & Data Results & Data ([facility]) Vital Signs (Past 12 Hours) Vital Signs Temp Pulse Resp BP BP Pulse Ox 11/08/21 08:04 36.3 C L 56 L 20 133/65 95 11/07/21 23:57 36.7 C 63 18 134/69 95 PG Care Time/CCT Total # of Minutes Spent Total Time Spent with Patient: Total time spent is greater than 50% in coordination of care (as documented) at patient's floor/unit and/or counseling patient: Coding Level of Care Code 16101 Subseq Hosp Care Lvl 3 Diagnoses Weakness R53.1 (HFpEF) heart failure with preserved ejection fraction I50.30 History of atrial fibrillation Z86.79 CKD (chronic kidney disease), stage III N18.30 Time Spent (min) 35
--- NOTE | 2021-11-08 08:21 | Billing Data ---
Date of Service November 03, 2021 Coding Level of Care Code 36934 Initial Inpt Care Lvl 3
--- NOTE | 2021-11-08 09:20 | Neurology Progress Note ---
Date of Service November 08, 2021 Assessment & Plan (1) Weakness: (2) Rotator cuff tear: Plan: Patient has weakness and stiffness legs greater than arms. he does not have true cogwheel rigidity, But he has some stiffness in the limbs, legs greater than arms and perhaps right greater than left side. He has no resting tremor or obvious masklike face/bradykinesia. I do not believe he has Parkinson's disease. his gait was interesting -very stiff and slow. His weakness pattern is diffuse and the proximal shoulder weakness, right greater than left side, is likely rotator cuff. He also has distal sensory issues legs greater than arms. There is atrophy distally in feet and hands. There is no myopathy pattern although inclusion body myositis would give a distal Weakness pattern. He could have a significant polyneuropathy involving sensory and motor nerve fibers. I note the high arches and hammertoes right greater the left foot. In addition, his mother had high arches but could walk easily into her 90s. A hereditary motor and sensory neuropathy cannot entirely be excluded. MRI of the brain did not show evidence of normal pressure hydrocephalus Finally, he has a possible upgoing toe on the right which would imply an upper motor neuron problem. Recommendations: 1. Consider MRI of the cervical spine, without contrast to evaluate for myelopathy 2. EMG nerve conduction studies of all 4 limbs -to be done as an outpatient. 3. continue Physical and occupational therapy 4. I will follow up as an outpatient Overall, I spent a total of 60 minutes with this patient including review of records, direct evaluation of the patient at bedside, and discussion of the case with the patient and RN at bedside, and Dr. Raphael, including differential diagnosis and treatment options. Admission and Anticipated Discharge Date Admission Date: November 05, 2021 Subjective Patient complains of some leg weakness and stiffness no pain in his cervical or lumbar spine. His arms are asymptomatic. he has no headaches dizziness. nursing reports no new issues CBC today shows mild anemia. Chem an elevated BUN and creatinine, with a normal glucose MRI of the brain November 04 showed no acute changes. There was generalized atrophy , and minimal old small vessel ischemia. I reviewed these films. there was no DVT noted in the legs on a venous Doppler study and lumbar spine CT showed degenerative changes and no significant spinal stenosis. Results & Data ([facility]) Vital Signs (Past 12 Hours) Vital Signs Temp Pulse Resp BP BP Pulse Ox 11/08/21 08:04 36.3 C L 56 L 20 133/65 95 11/07/21 23:57 36.7 C 63 18 134/69 95 Exam (Neuro) Physical Exam: He is awake and alert. There is no aphasia or dysarthria. He is pleasant and cooperative. Extraocular eye muscles are intact without nystagmus and there is no facial droop. Tongue is midline. There is no resting tremor. He has minimal postural and action tremor and some mildly decreased facility in the hands bilaterally. Coordination is normal in the arms without tremor or ataxia. Motor strength is 4/5 in the right deltoid and 4+/ 5 in the left deltoid. He has known rotator cuff issues bilaterally. Strength was close to 5/5 in the biceps and triceps bilaterally, andn 4/5 in intrinsic hand muscles and press catcher bilaterally. He had mild atrophy of the small muscles of the hand diffusely bilaterally. Motor strength was 4/5 in the hip flexors, quadriceps, and hamstring muscles bilaterally. he had difficulty getting out of a chair on his own although strug gled to do so. He needed the assistance of at least 1 and his gait was slow and unsteady. It was is his feet were "glued to the floor". Tibialis anterior was 4/5 bilaterally. Toe extensors were 4-/ 5 bilaterally he had atrophy distally in the feet. He had hammertoes right greater than left side at a very high arch right greater than left side. Toes were downgoing with plantar stimulation on t he left and equivocal to upgoing with plantar stimulation on the right. Gastrocnemius was closer to 5/5 bilaterally. There seem to be mild atrophy of the gastrocnemius muscles bilaterally as well. There was decreased pinprick in a stocking distribution to the mid lower legs bilaterally. Hands seemed relatively spared to pinprick. Reflexes were 1/4 the biceps, triceps, and quadriceps tendons. They were absent in the brachioradialis and Achilles tendons. Coding Level of Care Code 83081 Subseq Hosp Care Lvl 3 Diagnoses Weakness R53.1 Rotator cuff tear M75.100 Time Spent (min) 60
[2021-11-08] MEDS: cephALEXin 500 MG CAP PO SCH ×2 (11:46→20:22)
[2021-11-08] MEDS: WARFARIN SOD 6 MG TAB PO SCH (16:34)
[2021-11-08] MEDS: ACETAMINOPHEN 500 MG TAB PO PRN (20:21)
[2021-11-08] MEDS: ATORVASTATIN 20 MG TAB PO SCH (20:22)
[2021-11-09] MEDS: cephALEXin 500 MG CAP PO SCH ×2 (08:01→19:55)
[2021-11-09] MEDS: FUROSEMIDE 20 MG TAB PO SCH (08:03)
[2021-11-09] MEDS: SOTALOL HCL 80 MG TAB PO SCH (08:04)
[2021-11-09] MEDS: POTASSIUM CHLORIDE PWD 20 MEQ PACK PO SCH (08:05)
--- NOTE | 2021-11-09 13:42 | Magnetic Resonance Report ---
MRI OF THE CERVICAL SPINE WITHOUT CONTRAST CLINICAL HISTORY: Right upper extremity and lower extremity weakness. COMPARISON: CT and MRI of the cervical spine June 10, 2017. TECHNIQUE: Utilizing a 1.5 Sheba magnet and dedicated coil, multiplanar, multiecho imaging of the ce rvical spine was performed without IV contrast. FINDINGS: Vertebral body heights are maintained. There is no suspicious marrow replacement. Exam is mildly comp romised by motion artifact however cervical cord signal and caliber are normal. There is no intracana licular mass or fluid collection. Paravertebral soft tissues are unremarkable. There is mild straight ening of the normal cervical lordosis. Discogenic changes are most pronounced at the C4-C5 level. Mod erate multilevel degenerative changes within the cervical spine have minimally progressed since previ ous MRI. C2-C3: The central canal and right neural foramen are patent. There is mild narrowing of the left ne ural foramen. C3-C4: Central canal is patent. There is mild to moderate bilateral neural foraminal stenosis, great er on the left. C4-C5: Disc space narrowing is noted. Posterior disc osteophyte complex effaces the ventral thecal s ac. There is mild central canal stenosis. There is severe bilateral neural foraminal stenosis. This i s due to uncovertebral hypertrophy and facet arthrosis. C5-C6: Posterior disc osteophyte complex effaces the ventral thecal sac. There is mild central canal stenosis. There is severe bilateral neural foraminal stenosis. C6-C7: Minimal posterior disc osteophyte complex is noted. Central canal is patent. There is moderat e to severe left and moderate right neural foraminal stenosis C7-T1: Central canal and neural foramen are patent. IMPRESSION: 1. Normal cervical cord signal and caliber. 2. No acute process within the cervical spine by MRI. 3. Moderate multilevel degenerative disc disease and facet arthrosis. 4. Mild central canal stenosis at several levels. 5. Severe multilevel neural foraminal stenosis, as detailed above. This has slightly progressed since previous MRI. ACT 112: Negative or not required by law. Electronically signed by: Leo Pastrana M.D. 11/09/2021 1:40 PM
[2021-11-09] MEDS: WARFARIN SOD 6 MG TAB PO SCH (16:13)
--- NOTE | 2021-11-09 17:54 | Hospitalist Progress Note ---
Date of Service November 09, 2021 Assessment & Plan (1) Weakness: Plan: Patient is an 86-year-old male with recent hospitalization for COVID-19 with weakness presenting to the hospital for evaluation of weakness status post 30 days of rehab. Weakness -Concern over Charcot-isac tooth or post polio syndrome. -plan will be to obtain an EMG locally as an outpatient. Appreciate obtain Neurology Patient will benefit from rehab. Family is agreeable once seeing how patient ambulates. -MRI finding: cortical cerebral atrophy -Generalized weakness in the setting of recent COVID-19 infection with rigidity noted on examination -Concern for Parkinson's based off of physical exam: Rigidity, weakness, progression over past year Patient will require placement. Plan is for EMG as an outpatient. On 11/08 I walked with patient in the morning and the afternoon (walker), patient is a 2 assist to get up. On 11/09, Patient very slowly walked a lap with a strolling walker. Continues to be a 2 assist to stand. Patient had a MRI C Spine on 11/09, no significant changes that would explain his symptoms. -PT and OT consult -Fall precautions UTI-CYSTITIS Will place on ceftriaxone and monitor. Patient received second dose of ceftriaxone on 11/07 Transitioned to keflex PO on 11/08 will continue antibiotic for full course 11/09 is day 4. culture showed gram positive strep HFpEF - No evidence of acute exacerbation today. - Lasix40 mg po daily with potassium 20 mEq - Dr Toni Painter, [facility], is his primary medicine technologist. - Echo in 04/2021 with EF 55-60%, severely enlarged left atrium, valve gradients of prosthetic valves wnl. - Daily BMP History of atrial fibrillation -Normal sinus rhythm today -Continue sotalol, Coumadin for anticoagulation History of aortic valve replacement - Follows with Dr. Toni Painter with [facility] cardiology. - On Coumadin, 8 mg Sunday and Sunday, 6 mg all other days per rx filled 08/29. - INR remains therapeutic, goal 2.5-3.5. These are typically checked via [facility] Coumad[facility] - Repeat INR remains therapeutic. Diet: Heart healthy DVT prophylaxis: Warfarin Disposition: [facility] with telemetry CODE STATUS: DNR/DNI (2) (HFpEF) heart failure with preserved ejection fraction: (3) History of atrial fibrillation: (4) CKD (chronic kidney disease), stage III: Admission and Anticipated Discharge Date Admission Date: November 05, 2021 Subjective Patient reports no new symptoms today. Review of Systems Review of Systems: All systems reviewed & are unremarkable except as noted in HPI & below Physical Exam Physical Exam: Constitutional: WD/WN, vitals as above well developed and well nourished; no acute distress Eyes: normal accommodation, EOM intact bilaterally, reactive pupils ENMT: Throat: uvula midline Neck: trachea midline, no thyromegaly Respiratory: normal respiratory effort, lungs clear to auscultation Cardiovascular: Rate/Rhythm: regular rate and regular rhythm Heart Sounds: + murmur (2 out of 6 holosystolic best auscultated at the second left intercostal) Vessels: no JVD Gastrointestinal (Abdomen): normal bowel sounds, soft, nontender, no hepatosplenomegaly Musculoskeletal: Head/Neck/Chest: normocephalic and head atraumatic Extremities: + muscle atrophy (Of the calves bilaterally) and + foot abnormality Ankle: + limited ROM of ankle (Bilaterally) Skin: no rashes, warm and dry Neurologic: patellar DTR's 2+ bilat, sensation intact CN's II-XI intact bilaterally and moves all extremities Motor/Sensory: no tremor Cranial Nerves: normal accommodation, normal facial strength, tongue midline and symmetric palate elevation Coordination: normal pqgufg-ff-[id number] test Psychiatric: A+Ox3, euthymic affect Results & Data Results & Data ([facility]) Vital Signs (Past 12 Hours) Vital Signs Temp Pulse Resp BP Pulse Ox 11/09/21 07:21 36.3 C L 70 18 138/65 97 PG Care Time/CCT Total # of Minutes Spent Total Time Spent with Patient: Total time spent is greater than 50% in coordination of care (as documented) at patient's floor/unit and/or counseling patient: Coding Level of Care Code 43347 Subseq Hosp Care Lvl 3 Diagnoses Weakness R53.1 (HFpEF) heart failure with preserved ejection fraction I50.30 History of atrial fibrillation Z86.79 CKD (chronic kidney disease), stage III N18.30 Time Spent (min) 35
[2021-11-09] MEDS: ATORVASTATIN 20 MG TAB PO SCH (19:56)
[2021-11-10] MEDS: FUROSEMIDE 20 MG TAB PO SCH (07:51)
[2021-11-10] MEDS: cephALEXin 500 MG CAP PO SCH ×2 (07:52→20:14)
[2021-11-10] MEDS: POTASSIUM CHLORIDE PWD 20 MEQ PACK PO SCH (07:52)
[2021-11-10] MEDS: SOTALOL HCL 80 MG TAB PO SCH (07:52)
[2021-11-10 09:34] LABS: INR 3.7 (0.9-1.1); Prothrombin Time 36.6 Seconds (9.0-12.0)
--- NOTE | 2021-11-10 14:25 | Hospitalist Progress Note ---
Date of Service November 10, 2021 Assessment & Plan (1) Weakness: Plan: Patient is an 86-year-old male with recent hospitalization for COVID-19 with weakness presenting to the hospital for evaluation of weakness status post 30 days of rehab. Weakness -Concern over Charcot-isac tooth or post polio syndrome. -We will have EMG as outpatient Neurology consulted during admission, Parkinson's unlikely based on examination Enud-bl-juiw completed, inpatient rehab denied. Pending SNF placement. -MRI finding: cortical cerebral atrophy -Generalized weakness in the setting of recent COVID-19 infection with rigidity noted on examination -Concern for Parkinson's based off of physical exam: Rigidity, weakness, progression over past year Patient will require placement. -Patient had a MRI C Spine on 11/09, no significant changes that would explain his symptoms. -PT and OT consult -Fall precautions UTI-CYSTITIS Will place on ceftriaxone and monitor. Patient received second dose of ceftriaxone on 11/07 Transitioned to keflex PO on 11/08 5-day antibiotic course complete 11/10. Patient asymptomatic 11/10 HFpEF - No evidence of acute exacerbation - Lasix40 mg po daily with potassium 20 mEq - Dr Toni Painter, [facility], is his primary acquisition cost estimator. - Echo in 04/2021 with EF 55-60%, severely enlarged left atrium, valve gradients of prosthetic valves wnl. - Daily BMP History of atrial fibrillation -Normal sinus rhythm today -Continue sotalol, Coumadin for anticoagulation History of aortic valve replacement - Follows with Dr. Toni Painter with [facility] cardiology. - On Coumadin, 8 mg Sunday and Sunday, 6 mg all other days per rx filled 08/29. -INR with mild elevation to 3.7, goal 2.53.5. Dose reduced x1 dose from 6 to 4 mg. These are typically checked via [facility] Coumadin clinic. Continue INR trending. Diet: Heart healthy DVT prophylaxis: Warfarin Disposition: [facility] with telemetry CODE STATUS: DNR/DNI (2) (HFpEF) heart failure with preserved ejection fraction: (3) History of atrial fibrillation: (4) CKD (chronic kidney disease), stage III: Admission and Anticipated Discharge Date Admission Date: November 05, 2021 Carmela Vigil is seen at the bedside today. He is sitting up in the chair, no acute distress. Reports no new symptoms, denies chest pain, chest pressure, shortness of breath, difficulty breathing. Endorses global weakness similar to prior. Is awaiting placement. Peer to peer was requested afternoon 11/10, was completed and denied for inpatient rehab but [employer] approval was given for SNF. Discussed with case management, [facility] but patient would not be able to be transported by 3 PM for them to accept and will remain as a placement hold until tomorrow morning. Review of Systems Review of Systems: All systems reviewed & are unremarkable except as noted in Subjective Physical Exam Physical Exam: General: A&Ox3. NAD. Cooperative. HEENT: Atraumatic, normocephalic. Pulm: CTAB A&P. -wheezes, -rales, -rhonchi. Symmetrical chest rise. No increase in work of breathing. No respiratory distress. Cardiac: RRR, DOT present. Radial pulses intact and symmetrical. Abdominal: Nontender, nondistended, soft. BS present. Extremities: Warm, dry. Somewhat diminished sensation in lower extremities bilaterally but grossly intact and symmetrical to soft touch. Hip flexion 5/5 bilaterally, ankle dorsiflexion diminished symmetrically bilaterally. Results & Data Results & Data ([facility]) Vital Signs (Past 12 Hours) Vital Signs Temp Pulse Resp BP Pulse Ox 11/10/21 06:54 36.5 C 64 20 126/65 95 PG Care Time/CCT Total # of Minutes Spent Total Time Spent with Patient: Total time spent is greater than 50% in coordination of care (as documented) at patient's floor/unit and/or counseling patient: Coding Level of Care Code 28027 Subseq Hosp Care Lvl 2 Diagnoses Weakness R53.1 (HFpEF) heart failure with preserved ejection fraction I50.30 History of atrial fibrillation Z86.79 CKD (chronic kidney disease), stage III N18.30
[2021-11-10] MEDS ORDERED: WARFARIN SOD 4 MG TAB PO ONE (16:00)
[2021-11-10] MEDS: ATORVASTATIN 20 MG TAB PO SCH (20:14)
[2021-11-11] MEDS: ACETAMINOPHEN 500 MG TAB PO PRN (00:56)
[2021-11-11 06:25] LABS: Hematocrit (blood only) 34.7 % (42-52); Hemoglobin 11.6 g/dL (14.0-18.0); Mean Corpuscular Hemoglobin 29.7 pg (25-34); Mean Corpuscular Hgb Conc 33.4 g/dL (32-36); Mean Platelet Volume 9.7 fL (7.4-10.4); Platelet Count 290 K/uL (130-400); RDW Standard Deviation 45.6 fL (36.4-46.3); White Blood Count 8.71 K/uL (4.8-10.8)
[2021-11-11 06:42] LABS: INR 4.2 (0.9-1.1)
[2021-11-11 07:01] LABS: BUN Creatinine Ratio 24.6 (10-20); Creatinine Clr Calc Pharmacy 43.9 ml/min; Est GFR (African American) 53.6 ml/min; Est GFR (Non-African American) 46.3 ml/min; Potassium 4.3 mmol/L (3.5-5.1)
[2021-11-11] MEDS: cephALEXin 500 MG CAP PO SCH (08:10)
[2021-11-11] MEDS: SOTALOL HCL 80 MG TAB PO SCH (08:10)
[2021-11-11] MEDS: POTASSIUM CHLORIDE PWD 20 MEQ PACK PO SCH (08:10)
[2021-11-11] MEDS: FUROSEMIDE 20 MG TAB PO SCH (08:10)
--- NOTE | 2021-11-11 13:50 | Discharge Summary ---
Date of Service November 11, 2021 Admission HPI Per Admitting Provider Patient is an 86-year-old male with a past medical history of 2 valve replacements with chronic anticoagulation, preserved ejection fraction congestive heart failure, recent COVID-19 diagnosis with admission to the [facility], weakness with 1 month of recent rehabilitation, atrial fibrillation, CKD 3, obstructive sleep apnea, restrictive lung disease, hypercholesterolemia, CAD, and BPH presenting to the hospital for the chief complaint of weakness. Patient has family present who provides additional history of the patient's current illness. Patient reports that he was recently admitted to the hospital for COVID-19 diagnosis with generalized weakness and PAOLO. Patient was treated appropriately and was evaluated by physical therapy and Occupational Therapy recommended that he received acute rehab. After discharge patient was in acute rehab for 30 days. At the time of discharge from the hospital he could not ambulate and had to be transported via wheelchair, at the time of discharge from acute rehab, he was able to ambulate with a walker albeit with difficulty. Prior to his admission to the hospital with COVID-19, he was able to ambulate without assistance but did have difficulty with rising from a chair. Patient had a follow-up appointment with his primary care provider today who was concerned for the patient's current symptoms and recommend he go to the emergency room for further evaluation. Family and patient note that he has been dealing with slow progressive weakness for the past few months to year that the patient attributed to old age. Reports stiffness as an ongoing issue for many months. is additionally concerned about when the patient is ambulating with a walker that his feet are inverting more so on the right than on the left. This has not been an issue in the past. denies a history of flat affect. No family history of Parkinson's noted. No recent exposure to pesticides or fertilizers. Otherwise patient denies fevers, chills, chest pain, shortness of breath, abdominal pain, or urinary symptoms. Patient has no other complaints at this time. Principal Diagnosis Weakness, post-COVID, UTI Discharge Exam General: A&Ox3. NAD. Cooperative. HEENT: Atraumatic, normocephalic. Pupils equal and reactive. Vision grossly intact, hearing grossly intact. Pulm: CTAB A&P. -wheezes, -rales, -rhonchi. Symmetrical chest rise. No increase in work of breathing. No respiratory distress. Cardiac: RRR, + SM present. Radial pulses intact and symmetrical. Abdominal: Nontender, nondistended, soft. BS present. Extremities: Warm, dry. Sensation to soft touch grossly intact although diminished bilaterally in the lower extremities more so than upper. hip flexion 5/5 bilaterally, ankle dorsiflexion diminished symmetrically bilaterally. Discharge Data Allergies Allergy/AdvReac Type Severity Reaction Status Date / Time Penicillins Allergy Intermediate RASH Verified 11/03/21 14:53 celecoxib [From Celebrex] Allergy Unknown Unknown Verified 11/03/21 14:53 cyclobenzaprine Allergy Unknown Unknown Verified 11/03/21 14:53 [From Flexeril] simvastatin AdvReac Intermediate MUSCLE PAIN Verified 11/03/21 14:53 Consultations 11/03/21 17:09 ED Decision to Admit Stat 11/03/21 19:02 Consult Neurology Routine Ordered Studies 11/03/21 14:02 CT angio head w con Stat CT angio neck with con Stat CT head/brain wo con Stat CT lumbar spine wo con Stat 11/04/21 16:05 MR brain wo con Routine 11/06/21 01:11 US venous doppler LE RT Urgent 11/09/21 10:38 MR cervical spine wo con Routine Hospital Course (1) Weakness: Patient is an 86-year-old male with recent hospitalization for COVID-19 with weakness presenting to the hospital for evaluation of weakness status post 30 days of rehab. To do as outpatient: 1. Repeat INR within 48 hours, had a dose reduction 11/10 and a dose held 11/11 for borderline/supratherapeutic INR follow-up to coagulation clinic. 2. Neurology outpatient follow-up, EMG testing as outpatient 3. Continued rehab and strengthening Weakness -Concern over Charcot-isac tooth or post polio syndrome. -EMG as outpatient Neurology consulted during admission, Parkinson's unlikely based on examination Bhti-io-xndm completed, inpatient rehab denied. Discharged to SNF -MRI finding: cortical cerebral atrophy -Generalized weakness in the setting of recent COVID-19 infection with rigidity noted on examination -Concern for Parkinson's based off of physical exam: Rigidity, weakness, progression over past year. Neurology consulted during admission, felt based on evaluation that Parkinson's was unlikely. We will follow as outpatient for EMG testing and cannot rule out hereditary motor/sensory neuropathy. -Patient had a MRI C Spine on 11/09, no significant changes that would explain his symptoms. -Fall precautions UTI-CYSTITIS Placed on empiric Rocephin, transitioned to Keflex p.o., course complete 11/10 no further antibiotics prescribed at discharge UC positive for alpha strep, antibiotics narrowed as above HFpEF - No evidence of acute exacerbation - Lasix40 mg po daily with potassium 20 mEq - Dr Toni Painter, [facility], is his primary relationship associate. - Echo in 04/2021 with EF 55-60%, severely enlarged left atrium, valve gradients of prosthetic valves wnl. History of atrial fibrillation -Normal sinus rhythm during admission -Continue sotalol, Coumadin for anticoagulation History of aortic valve replacement - Follows with Dr. Toni Painter with [facility] cardiology. - On Coumadin, 8 mg Sunday and Sunday, 6 mg all other days per rx filled 08/29. -INR with mild elevation to 3.7, goal 2.53.5. Received 6 mg dose reduction to 4 mg, and then a dose held day of discharge for INR 4.2. These are typically checked via [facility] Coumadin clinic. Continue INR trending. Diet: Heart healthy DVT prophylaxis: Warfarin [facility] CODE STATUS: DNR/DNI (2) (HFpEF) heart failure with preserved ejection fraction: (3) History of atrial fibrillation: (4) CKD (chronic kidney disease), stage III: Total Time Total Time Spent Total Time Spent (In Minutes): Time spend day of discharge 35 minutes including direct patient care, documentation, review of labs and images, and coordination of care. Discharge Plan Discharge Items Patient Disposition: Transfer [facility] Reason For Visit: REFERRED BY , TESTING REQUESTED Discharge Diagnosis: Severe deconditioning, post COVID-19 Suspected peripheral neuropathy Activity: Per Instructions section Non-emergency contact: Primary Care Provider and Neurologist Call non-emergency contact if: you have any medication questions, your symptoms worsen and your pain is not controlled Follow-up/Referrals: Deric Tello MD [Primary Care Provider] - Diet: Heart Healthy Addtl Attending Provider Instructions: You are seen in the hospital for weakness. An MRI of your spine did not show any significant changes that would contribute to your weakness. You were treated for a urinary tract infection. Neurology was consulted during your admission, and have recommended to have a follow-up nerve study as an outpatient. You were assessed for Parkinson's, it was felt that Parkinson's was unlikely based on your neurologic exam and further work-up with follow-up to neurology is being scheduled as an outpatient. Your strength was improving at time of discharge, but still markedly reduced. You are initially recommended for acute inpatient rehab and a peer to peer was performed for this but ultimately denied by insurance, you have been discharged for further rehab and [facility]. You have not been prescribed any new medications. You completed a course of antibiotics while inpatient for a UTI. Your INR was elevated on 11/10 and 11/11. He received half dose of warfarin on 11/10, and a single dose of warfarin was held on 11/11. Please have INR checks within 48 hours and adjust warfarin as needed per the [facility] Coumadin clinic. If you develop any new or worsening symptoms including fever, chills, sweats, chest pain, chest pressure, difficulty breathing, uncontrolled nausea/vomiting, rash, wheezing, passing out or nearly passing out, bleeding, black/bloody bowel movements, or other new or concerning symptoms please call your primary care physician, or call 911 for re-evaluation in the emergency department if you are very concerned. Pending Studies at Discharge: No Stand-Alone Forms: My [facility] Skilled Items Patient informed of condition?: Yes DNR: Yes Discharge Level of Care: Skilled Communicable Disease: No Discharge Prognosis: Stable Lines: None Urinary Catheter: No Medications and DC Order Prescriptions: Continued furosemide 40 mg tablet 20 mg PO QAM RF: 0 atorvastatin 20 mg tablet 20 mg PO HS RF: 0 potassium chloride [Klor-Con] 20 mEq Packet 20 meq PO QAM RF: 0 sotalol 80 mg Tablet 40 mg PO QAM RF: 0 acetaminophen [Tylenol Extra Strength] 500 mg Tablet 1,000 mg PO BID PRN (Reason: Pain) Qty: 30 RF: 0 C,E,zinc,copper 34-[id number]-rex 250-5-1 mg Capsule 2 cap PO QAM RF: 0 lidocaine 5 % adhesive patch,medicated 1 patch transdermal QAM PRN (Reason: Pain) RF: 0 diclofenac sodium [Voltaren Arthritis Pain] 1 % gel 4 g EXT QID PRN (Reason: Pain) RF: 0 Changed warfarin 2 mg tablet See Rx Instructions .ROUTE .COMPLEX Qty: 0 RF: 0 Discharge Orders: Discharge Order (Routine); Ordered 11/11/21 Ordered By: Willian Joe/Other Patient Handouts: Pulmonary Embolism Admission Data Admit Date/Time: 11/05/21 15:15 Attending Provider: Willian Loya Admit Provider: Tay Schuler Primary Care Provider: Deric Tello Other Providers: Woody Raphael ; Blayne Ceja ; [facility] ; [place] Other Interventions: Discharge Summary Assessment (RN) Last Done: 11/11/21 09:47 Coding Level of Care Code D/C DAY MANAGEMENT >30 MINS Diagnoses Weakness R53.1 (HFpEF) heart failure with preserved ejection fraction I50.30 History of atrial fibrillation Z86.79 CKD (chronic kidney disease), stage III N18.30
== END 2021-11-11 15:49 | DRG 74 ==
LOC: 2N 12:36 → ED 12:36 → 2N 19:50 → SUATTDRO 11-05 15:15 → 3E 11-10 20:26

== ENCOUNTER 2023-04-09 10:16 | Inpatient (IN) ==
--- NOTE | 2023-04-09 11:05 | Emergency Department Note ---
Impression & Plan Ambulatory dysfunction, Weakness, Fall, CKD (chronic kidney disease), stage III ED Provider Note NAME: ALESSANDRO MONTERO AGE: 87 SEX: M : 1935 ARRIVES VIA: Ambulance INFORMANT: Patient, ED PROVIDER(S): Josh Tyler MD CHIEF COMPLAINT: Fall, knee pain MEDICAL DECISION MAKING: Patient presents due to concern for fall and associated knee pain. The patient is on Coumadin does have chronic memory issues. IV was established and blood was obtained along with Coumadin level. Patient did have plain films completed of the left shoulder chest and ribs left hip and pelvis femur and bilateral knees. Patient was ordered Tylenol. Patient's plain imaging does not show any obvious fracture. The patient does have some pleural effusions noted seen on his chest x-ray. Patient's blood work shows a white count of 12 with mild anemia hemoglobin of 13.4 normal platelet count. The patient's kidney function does show a creatinine 1.6 slightly up from his normal. Initial troponin 29. Urinalysis negative. COVID-negative. I did speak with the home health care case manager and we are unable to increase level of care at the [facility] and thus I did speak with the inpatient hospitalist service Dr. Ruiz and the patient was admitted to the medicine service. Discussion w/ other healthcare providers: Dr. Ruiz inpatient medicine Prior /Outside records reviewed: I reviewed an operative report from January 21, [address] Teresa. Patient a preoperative diagnosis of sick sinus syndrome and did have a dual- chamber rate responsive permanent pacemaker placed at that time Differential diagnosis: Infection, dehydration, metabolic abnormality, hypo/hyperglycemia, electrolyte imbalance, anemia, UTI, pneumonia, thyroid dysfunction among others were considered. Diagnostics, as interpreted by me: ECG: None Cardiac monitoring: An order was placed for continuous cardiac monitoring. The monitor shows a rate of 63 with paced rhythm. Patient was placed on pulse oximetry Medical decision rules: Chinese head CT rule Imaging studies: I informally interpreted the patient's chest x-ray which does not show obvious pneumothorax with formal report to follow. I informally interpreted the patient's CT head which does not show obvious ICH HPI: Patient presents due to concern for fall and associated ambulatory dysfunction. The patient does have a prior history of neuropathy and gout. Patient states that he was having some difficulty with walking yesterday was using his walker and had a slow fall toward his left side. Since then the patient has had some associated left shoulder and hip and leg and bilateral knee pain. Patient states that sometimes he will take some Tylenol for pain. Did not take any this morning. The patient does take Coumadin for known history of valve repair as well as atrial fibrillation does follow with Dr. Painter with [facility] cardiology. Patient denies any chest pains or shortness of breath. He does drink alcohol occasionally. Patient denies any tobacco or drug use. Patient is compliant with his medications and last took his meds this morning. Patient did require help as he is a resident [facility] and did require some additional assistance with getting him upright. The patient was unable to be ambulatory on his own this morning. PAST MEDICAL HISTORY: See Below PAST SURGICAL HISTORY: See Below SOCIAL HISTORY: See Below HOME MEDICATIONS: See Below ALLERGIES: See Below VITALS: See Below PHYSICAL EXAMINATION: GENERAL: NAD, non-toxic. EYE EXAM: Normal conjunctiva. PERRL, no anisocoria and EOM's grossly intact w/o pain. Head: Normocephalic/atraumatic OROPHARYNX: Moist mucus membranes, grossly normal dentition. NECK: Supple, no nuchal rigidity, no adenopathy, non-tender. No signs of meningismus. FROM of the neck with good chin to chest and neck extension. No stridor. No midline C-spine TTP. LUNGS: Clear to auscultation. Normal chest wall mechanics. Chest: Device noted left upper chest. Mild pain to the lateral aspect of the left mid axillary chest wall without overlying crepitus or ecchymosis HEART: NSR, no MRG. ABDOMEN: Abdomen soft, non-tender, no masses, no rebound or guarding. BACK: No CVA TTP. SKIN: No rashes and no bruising. UPPER EXTREMITIES: Upper extremities are grossly normal. LOWER EXTREMITIES: Grossly normal, 1-2+ symmetric lower extremity edema without any calf pain, mild warmth without significant erythema. No crepitus. My discomfort to the bilateral knees, decreased range of motion bilateral lower extremities worse in the left hip secondary to pain. NEURO EXAM: Awake and alert, follows basic commands, cranial nerves II-XII grossly intact, normal speech, moves all 4 extremities. Past Med/Surg History Medical History CKD (chronic kidney disease), stage III Macular degeneration GETS SHOTS IN EYES FOR TREATMENT Q8-10 WEEKS Restless leg syndrome History of cardioversion History of atrial fibrillation Hypertension Aortic valve disorder Atrial flutter BPH with obstruction/lower urinary tract symptoms Coronary artery disease Nonobstructive on [facility] 2012 Ventral hernia Moderate obstructive sleep apnea Pseudogout Surgical History History of left cataract surgery 11/19/2019. propofol given. History of colonoscopy History of tooth extraction History of inguinal hernia repair LEFT X 2 History of vasectomy History of mitral valve replacement 4 YEARS AGO (DENICE TAYLOR) History of aortic valve replacement AT AGE 58 (DENICE TAYLOR) Family History Sister Heart disease Denies family history of Ovarian cancer Prostate cancer Myocardial infarction Breast cancer Colorectal cancer Social History Smoking Status: Never smoker Second Hand Exposure: No; Do You Dip or Chew Tobacco: No; Hx Alcohol Use: Yes Alcohol type: wine Alcohol Intake Frequency: 2-3 x/Week Alcohol Intake Frequency Comment: 2 glasses of wine per week Hx Substance Use: No Preferred Language: Gabonese Communication Ability: Effective Visual Impairment: Diminished Hearing Ability: Normal 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 Required: No Beliefs That Will Affect Care: None marital status: Current Living Situation: Spouse current occupational status: retired 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 Other Information That Helps Us Care for You: No Feels Safe at Home: Yes Safety Concerns: Feels Safe At This Time Childhood Exposure to Second-Hand Smoke: Yes Diet: regular Dental Care, Regularly: Yes Physical Activity Frequency: Daily Seatbelt Use: always Sunscreen Use: Yes (sometimes ) Assistive Devices: Walker Allergies Allergies Allergy/AdvReac Type Severity Reaction Status Date / Time Penicillins Allergy Intermediate RASH Verified 01/10/23 11:38 Home Meds Home Medications Medication Instructions Recorded Confirmed furosemide 40 mg tablet 20 mg PO QAM 03/04/19 04/09/23 sotalol 80 mg tablet 40 mg PO QAM 11/12/19 04/09/23 diclofenac sodium 1 % topical gel 4 g EXT QID PRN Pain 11/03/21 04/09/23 (Voltaren Arthritis Pain) vit C,E,zinc,copper-fkelj1m 250 2 cap PO QAM 11/03/21 04/09/23 mg-lutein 5 mg-zeaxanthin 1 mg capsule amoxicillin 500 mg capsule 2,000 mg PO PRN 01/01/23 04/09/23 magnesium oxide 400 mg PO DAILY 01/01/23 04/09/23 spironolactone 25 mg tablet 12.5 mg PO DAILY 01/01/23 04/09/23 vitamin B complex (B 1 tab PO DAILY 01/01/23 04/09/23 Complex-Vitamin B12 tablet) ascorbic acid (vitamin C) 500 mg 500 mg PO DAILY 04/09/23 04/09/23 tablet (Vitamin C) folic acid 400 mcg tablet 0.4 mg PO DAILY 04/09/23 04/09/23 Previous Rx's Medication Instructions Recorded acetaminophen 500 mg tablet 1,000 mg (2 x 500 mg) PO BID PRN 07/18/21 (Tylenol Extra Strength) Pain #30 tabs warfarin 2 mg tablet See Rx Instructions .Route 11/11/21 .COMPLEX #0 tabs diaper,brief,adult,disposable #100 ea 02/02/22 ([place] Comfort Protect Adult Diaper X-Large) atorvastatin 20 mg tablet 20 mg PO HS #90 tabs 01/01/23 ropinirole 0.25 mg tablet 0.25 mg PO HS #90 tabs 01/08/23 Results & Data (ED) Vital Signs Vital Signs - 24 hr 04/09/23 11:00 04/09/23 11:51 04/09/23 13:19 Pulse Rate Pulse Rate [Right Finger] 60 63 60 Respiratory Rate 18 16 16 Respiratory Effort / Characteristics Non-Labored Spontaneous Non-Labored Spontaneous Respiratory Depth Normal Normal Normal Respiratory Pattern Regular Regular Blood Pressure [Left Arm] 127/67 125/67 109/65 Blood Pressure Mean [Left Arm] 87 86 79 Blood Pressure Position [Left Arm] Lying Lying Lying Pulse Oximetry 95 96 95 Oxygen Delivery Method Room Air Room Air Room Air 04/09/23 14:18 04/09/23 14:55 Pulse Rate 64 Pulse Rate [Right Finger] 63 Respiratory Rate 16 Respiratory Effort / Characteristics Non-Labored Spontaneous Respiratory Depth Normal Respiratory Pattern Regular Blood Pressure [Left Arm] 128/62 Blood Pressure Mean [Left Arm] 84 Blood Pressure Position [Left Arm] Lying Pulse Oximetry 96 Oxygen Delivery Method Room Air Home Medications Current Medication List: was personally reviewed by me Laboratory Data Attestation: I reviewed the patient's lab results. 04/10/23 05:40 04/10/23 05:40 Lab Results 04/09/23 04/09/23 04/09/23 Range/Units 11:53 14:20 14:21 WBC 12.27 H (4.8-10.8) K/ul RBC 4.23 L (4.70-6.10) M/uL Hgb 13.4 L (14.0-18.0) g/dl Hct 39.7 L (42.0-52.0) % MCV 93.9 (80.0-100.0) fL MCH 31.7 (25.0-34.0) pg MCHC 33.8 (32.0-36.0) g/dL RDW Std Deviation 45.2 (36.4-46.3) fL RDW Coeff of Cresencio 13.2 (11.5-14.5) % Plt Count 222 (130-400) K/uL MPV 10.6 (9.4-12.4) fL Immature Gran % (Auto) 0.6 % Neut % (Auto) 62.5 % Lymph % (Auto) 13.1 % [place] % (Auto) 20.7 % Eos % (Auto) 2.9 % Baso % (Auto) 0.2 % Neut # (Auto) 7.67 H (1.40-6.50) K/uL Lymph # (Auto) 1.61 (1.20-3.40) K/uL [place] # (Auto) 2.54 H (0.11-0.59) K/uL Eos # (Auto) 0.36 (0.00-0.50) K/uL Baso # (Auto) 0.02 (0.00-0.20) K/uL Immature Gran # (Auto) 0.07 (0.01-0.20) K/uL PT Cancelled 19.7 H INR Cancelled 1.9 H Sodium 135 L (136-145) mmol/L Potassium 4.3 (3.5-5.1) mmol/L Chloride 97 L (98-107) mmol/L Carbon Dioxide 33 H (21-32) mmol/L Anion Gap 5 (3-11) BUN 32 H (6-23) mg/dl Creatinine 1.60 H (0.6-1.4) mg/dl Est Cr Clr Drug Dosing 39.7 ml/min Est GFR ( Amer) 44.6 ml/min Est GFR (Non-Af Amer) 38.4 ml/min BUN/Creatinine Ratio 20.0 (10-20) Glucose 93 (70-99(Fasting)) mg/dl Calcium 9.9 (8.6-10.3) mg/dl Magnesium 2.1 (1.7-2.4) mg/dl Total Bilirubin 0.8 (0.2-1.0) mg/dl AST 20 (13-39) U/L ALT 17 (7-52) U/L Alkaline Phosphatase 73 (34-104) U/L Troponin I High Sens 29.0 H 30.0 H (0-20) pg/ml Total Protein 8.3 (6.0-8.3) gm/dl Albumin 3.9 (3.4-5.0) gm/dl Globulin 4.4 H (2.5-4.0) gm/dl Albumin/Globulin Ratio 0.9 (0.9-2) Vitamin B12 684 (180-914) pg/ml TSH 3.197 (0.300-4.500) uIu/ml Urine Color Urine Appearance (Clear) Urine pH (4.5-7.5) Ur Specific [place] (1.000-1.030) Urine Protein (Negative) Urine Glucose (UA) (Negative) Urine Ketones (Negative) Urine Blood (Negative) Urine Nitrite (Negative) Urine Bilirubin (Negative) Urine Urobilinogen (Negative) Ur Leukocyte Esterase (Negative) SARS-CoV-2, RNA, NAAT (NEGATIVE) 04/09/23 04/09/23 Range/Units 14:36 14:45 WBC (4.8-10.8) K/ul RBC (4.70-6.10) M/uL Hgb (14.0-18.0) g/dl Hct (42.0-52.0) % MCV (80.0-100.0) fL MCH (25.0-34.0) pg MCHC (32.0-36.0) g/dL RDW Std Deviation (36.4-46.3) fL RDW Coeff of Cresencio (11.5-14.5) % Plt Count (130-400) K/uL MPV (9.4-12.4) fL Immature Gran % (Auto) % Neut % (Auto) % Lymph % (Auto) % [place] % (Auto) % Eos % (Auto) % Baso % (Auto) % Neut # (Auto) (1.40-6.50) K/uL Lymph # (Auto) (1.20-3.40) K/uL [place] # (Auto) (0.11-0.59) K/uL Eos # (Auto) (0.00-0.50) K/uL Baso # (Auto) (0.00-0.20) K/uL Immature Gran # (Auto) (0.01-0.20) K/uL PT INR Sodium (136-145) mmol/L Potassium (3.5-5.1) mmol/L Chloride (98-107) mmol/L Carbon Dioxide (21-32) mmol/L Anion Gap (3-11) BUN (6-23) mg/dl Creatinine (0.6-1.4) mg/dl Est Cr Clr Drug Dosing ml/min Est GFR ( Amer) ml/min Est GFR (Non-Af Amer) ml/min BUN/Creatinine Ratio (10-20) Glucose (70-99(Fasting)) mg/dl Calcium (8.6-10.3) mg/dl Magnesium (1.7-2.4) mg/dl Total Bilirubin (0.2-1.0) mg/dl AST (13-39) U/L ALT (7-52) U/L Alkaline Phosphatase (34-104) U/L Troponin I High Sens (0-20) pg/ml Total Protein (6.0-8.3) gm/dl Albumin (3.4-5.0) gm/dl Globulin (2.5-4.0) gm/dl Albumin/Globulin Ratio (0.9-2) Vitamin B12 (180-914) pg/ml TSH (0.300-4.500) uIu/ml Urine Color Dark Yellow Urine Appearance Clear (Clear) Urine pH 5.0 (4.5-7.5) Ur Specific [place] 1.015 (1.000-1.030) Urine Protein Negative (Negative) Urine Glucose (UA) Negative (Negative) Urine Ketones Negative (Negative) Urine Blood Negative (Negative) Urine Nitrite Negative (Negative) Urine Bilirubin Negative (Negative) Urine Urobilinogen Negative (Negative) Ur Leukocyte Esterase Negative (Negative) SARS-CoV-2, RNA, NAAT NEGATIVE (NEGATIVE) Administered Medications Atorvastatin Calcium (Atorvastatin 20 Mg Tab) 20 mg PO HS [facility] Stop: 05/09/23 20:59 Last Admin: 04/09/23 20:18 Dose: 20 mg Documented By: SHAUN Folic Acid (Folic Acid 400 Mcg Tab) 400 mcg PO DAILY [facility] Stop: 05/10/23 08:59 Last Admin: 04/10/23 07:57 Dose: 400 mcg Documented By: YONNY Furosemide (Furosemide 20 Mg Tab) 20 mg PO QAM [facility] Stop: 05/10/23 08:59 Last Admin: 04/10/23 08:02 Dose: 20 mg Documented By: YONNY Magnesium Oxide (Magnesium Oxide 400 Mg Tab) 400 mg PO DAILY [facility] Stop: 05/10/23 08:59 Last Admin: 04/10/23 08:02 Dose: 400 mg Documented By: YONNY Melatonin (Melatonin 3 Mg Tab) 3 mg PO HS PRN PRN Reason: Sleep Stop: 05/09/23 23:41 Last Admin: 04/10/23 00:36 Dose: 3 mg Documented By: SHAUN Ropinirole HCl (Ropinirole Hcl 0.25 Mg Tablet) 0.25 mg PO HS [facility] Stop: 05/09/23 20:59 Last Admin: 04/09/23 20:18 Dose: 0.25 mg Documented By: SHAUN Sotalol HCl (Sotalol Hcl 80 Mg Tab) 40 mg PO QAM [facility] Stop: 05/10/23 08:59 Last Admin: 04/10/23 07:57 Dose: 40 mg Documented By: YONNY Spironolactone (Spironolactone 12.5 Mg Tab) 12.5 mg PO DAILY [facility] Stop: 05/10/23 08:59 Last Admin: 04/10/23 07:57 Dose: 12.5 mg Documented By: YONNY Vitamin B Complex (Vitamin B Complex Tab) 1 tab PO DAILY [facility] Stop: 05/10/23 08:59 Last Admin: 04/10/23 08:02 Dose: 1 tab Documented By: YONNY Warfarin Sodium (Warfarin Sod 6 Mg Tab) 6 mg PO [id number] [facility] Stop: 05/09/23 15:59 Last Admin: 04/09/23 16:34 Dose: Not Given Documented By: CPB Discontinued Medications Acetaminophen (Acetaminophen 500 Mg Tab) 1,000 mg PO NOW STA Stop: 04/09/23 11:24 Last Admin: 04/09/23 11:39 Dose: 1,000 mg Documented By: CPB Discharge Plan Visit Data Chief Complaint: Fall Stated Complaint: WEAKNESS, L SHOULDER PAIN, LEG EDEMA ED Provider: Josh Tyler Discharge Problem: Ambulatory dysfunction, Weakness, Fall, CKD (chronic kidney disease), stage III Patient Disposition: Admitted As Inpatient Discharge Instructions Interventions: ED Discharge Assessment Last Done: 04/09/23 15:33 Discharge Problem: Fall Qualifiers: Encounter type: initial encounter Qualified Code(s): W19.XXXA - Unspecified fall, initial encounter CKD (chronic kidney disease), stage III Qualifiers: Chronic kidney disease stage 3 subtype: unspecified whether 3a or 3b Qualified Code(s): N18.30 - Chronic kidney disease, stage 3 unspecified
[2023-04-09] MEDS ORDERED: ACETAMINOPHEN 500 MG TAB PO STA (11:23)
[2023-04-09 12:07] LABS: Basophils # (auto) 0.02 K/uL (0.00-0.20); Basophils % (auto) 0.2 %; Eosinophils # (auto) 0.36 K/uL (0.00-0.50); Eosinophils % (auto) 2.9 %; Hematocrit (blood only) 39.7 % (42.0-52.0); Hemoglobin 13.4 g/dl (14.0-18.0); Immature Granulocytes # (auto) 0.07 K/uL (0.01-0.20); Immature Granulocytes % (auto) 0.6 %; Lymphocytes # (auto) 1.61 K/uL (1.20-3.40); Lymphocytes % (auto) 13.1 %; Mean Corpuscular Hemoglobin 31.7 pg (25.0-34.0); Mean Corpuscular Hgb Conc 33.8 g/dL (32.0-36.0); Mean Corpuscular Volume 93.9 fL (80.0-100.0); Mean Platelet Volume 10.6 fL (9.4-12.4); Monocytes # (auto) 2.54 K/uL (0.11-0.59); Monocytes % (auto) 20.7 %; Neutrophils # (auto) 7.67 K/uL (1.40-6.50); Neutrophils % (auto) 62.5 %; Platelet Count 222 K/uL (130-400); RDW Coefficient of Variation 13.2 % (11.5-14.5); RDW Standard Deviation 45.2 fL (36.4-46.3); Red Blood Count 4.23 M/uL (4.70-6.10); White Blood Count 12.27 K/ul (4.8-10.8)
--- NOTE | 2023-04-09 12:22 | CT Scan Report ---
CT SCAN OF THE BRAIN WITHOUT IV CONTRAST CLINICAL HISTORY: Fall. COMPARISON STUDY: CT of the brain dated 11/03/2021. TECHNIQUE: Unenhanced axial CT scan of the brain is performed from the vertex to the skull base. A do se lowering technique was utilized adhering to the principles of ALARA. CT DOSE: 1000.44 mGy.cm FINDINGS: Brain parenchyma: There is age-related involutional change noting mild subcortical and periventricula r microangiopathic disease. There is no hemorrhage, mass effect, or evidence of acute territorial isc hemia by CT criteria. Leonard-white matter differentiation is preserved. No extra-axial fluid collection is seen. Ventricles, sulci, cisterns: Prominent secondary to involutional change. Intracranial vasculature: There is atherosclerotic calcification of the cavernous carotid and vertebr al arteries. Calvarium: The skeletal structures are osteopenic. No depressed calvarial fracture is seen. Sinuses and mastoids: The visualized paranasal sinuses are clear. The mastoid air cells are well pneu matized. Orbits: The bony orbits are grossly intact. There are bilateral ocular lens implants. IMPRESSION: There is no hemorrhage, mass effect, or evidence of acute territorial ischemia by CT ministerio eduardo. ACT 112: Negative or not required by law. Electronically signed by: Jasson Vance M.D. 04/09/2023 12:21 PM
[2023-04-09 12:27] LABS: Albumin Globulin Ratio 0.9 (0.9-2); Albumin Level 3.9 gm/dl (3.4-5.0); Bilirubin,Total 0.8 mg/dl (0.2-1.0); Calcium 9.9 mg/dl (8.6-10.3); Creatinine Clr Calc Pharmacy 39.7 ml/min; Est GFR (African American) 44.6 ml/min; Est GFR (Non-African American) 38.4 ml/min; Globulin 4.4 gm/dl (2.5-4.0); Magnesium 2.1 mg/dl (1.7-2.4); Potassium 4.3 mmol/L (3.5-5.1); Total Protein 8.3 gm/dl (6.0-8.3)
[2023-04-09 12:44] LABS: Thyroid Stimulating Hormone 3.197 uIu/ml (0.300-4.500)
--- NOTE | 2023-04-09 13:23 | XRay Report ---
XR knee RT 3V CLINICAL HISTORY: fall. Right knee pain. COMPARISON STUDY: Right knee 07/13/2021. FINDINGS: No acute fracture or dislocation within the right knee. There is a small right knee effusio n. Chondrocalcinosis is again noted. There is severe osteoarthritis at the lateral patellofemoral mila nt. Mild degenerative changes seen throughout the remaining compartments of the right knee. There are mild vascular calcifications. Mild anterior soft tissue swelling. IMPRESSION: 1. No acute fracture or dislocation within the right knee. 2. Chondrocalcinosis and degenerative changes again noted. 3. Anterior soft tissue swelling. 4. Small right knee effusion. This has improved. ACT 112: Negative or not required by law. Electronically signed by: Andrea Sahu M.D. 04/09/2023 1:21 PM
--- NOTE | 2023-04-09 13:38 | XRay Report ---
AP CHEST WITH LEFT-SIDED RIB SERIES CLINICAL HISTORY: Fall. Left-sided chest wall pain. FINDINGS: 3 AP supine chest radiographs with 5 additional views from a left-sided rib series is brown woodall to study dated 01/10/2023 and correlated with chest CT dated 07/13/2021. The patient is status post midline sternotomy. Epicardial leads are in place. The heart is enlarged noting atherosclerotic calc ification of the thoracic aorta. There is mild pulmonary vascular congestion. Small pleural effusions are suspected with bibasilar scarring/atelectasis. Segmental atelectasis is again seen in the right middle lobe. No pneumothorax is seen. The skeletal structures are osteopenic. There is no radiographi c evidence of acute/displaced left-sided rib fracture on the rib series. There is chronic deformity o f the left fifth rib. The remainder of the bony thorax is grossly intact. IMPRESSION: 1. Cardiomegaly and cardiac pacemaker with pulmonary vascular congestion. 2. Suspect small pleural effusions. 3. Segmental atelectasis is again seen in the right middle lobe. 4. There is no radiographic evidence of acute/displaced left-sided rib fracture on the rib series. ACT 112: Negative or not required by law. Electronically signed by: Jasson Vance M.D. 04/09/2023 1:36 PM
--- OUTSIDE RECORDS SUMMARY | 2023-04-09 13:38 | External Medical Summary | Summary of Care ---
Author Name Unknown Organization [facility] Address [address] [place] [address] Phone [phone] Care Team Providers Care Rn Vascular Name Role Phone Clau Mederos MD Primary Care Provide r Encounter Details Date Type Department Care Team (Late st Contact Info) Description 03/22/2023 Documentation Cardiology [facility] [place] [address] [place] [address] Julissa Villarreal RN Allergies Active Allergy Reactions Criticality Noted Date Comments Penicillins 09/15/2010 documented as of this encounter (statuses as of 03/22/2023) Medications Medication Sig Dispensed Refills Start Date End Date Status Multiple Vitamins-Minerals (OCUVITE ADULT 50+) Capsule Take 1 Capsule by mouth in the morning. 0 Active Diclofenac Sodium 1 % gel USW 1 GRAM EXTERNALLY 4 TIMES DAILY 0 06/14/2017 Active One-A-Day Mens 50+ Oral Tablet Take by mouth 1 Tablet daily . 0 Active Sotalol HCl 80 MG Oral Tablet (Betapace) Take by mouth 0.5 Tablets in the morning. 45 Tablet 3 02/06/2022 Active Atorvastatin Calcium 20 MG Oral Tablet (Lipitor) Take by mouth 1 Tablet in the morning. 90 Tablet 3 02/06/2022 Active PreserVision AREDS 2+Multi Vit Oral Capsule Take by mouth. 2 tablets daily 0 Active Vitamin C 500 MG Oral Capsule Take by mouth. 0 Active Vitamin B-12 100 MCG Oral Tablet (vitamin B-12) Take 1 Tablet by mouth in the morning. 0 Active Furosemide 40 MG Oral Tablet (Lasix)Indications:C hronic 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,S/P AVR (aortic valve replacement),Paroxys mal atrial fibrillation (HCC),HTN, goal below 140/90,S/P MVR (mitral valve replacement),Dyslipi demia, goal LDL below 70 Take 1 Tablet by mouth in the morning. 90 Tablet 3 07/20/2022 Active Warfarin Sodium 2 MG Oral Tablet (Coumadin)Indication s:S/P AVR (aortic valve replacement),Paroxys mal atrial fibrillation (HCC),S/P MVR (mitral valve replacement) TAKE 3 TABLETS (6MG) DAILY ON SUNDAY AND SUNDAY AND 2 TABLETS (4MG) ALL OTHER DAYS 200 Tablet 3 11/13/2022 Active Magnesium 400 MG Oral Tablet Take by mouth. 0 Active Zinc 100 MG Oral Tablet Take by mouth. 0 Active B Complex-C Oral Tablet Take 1 Tablet by mouth in the morning. 0 Active Spironolactone 25 MG Oral Tablet (Aldactone) Take 0.5 Tablets by mouth in the morning. 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 Respiratory failure, acute 03/14/2013 Pulmonary hypertension 03/14/2013 Interstitial lung disease 03/13/2013 Overview: With nodularity Obstructive sleep apnea 03/13/2013 Overview: Home CPAP Heart failure due to valvular disease 03/10/2013 S/P AVR (aortic valve replacement) 03/07/2013 Overview: Mechanical, 1994 Mitral valve regurgitation 03/07/2013 Overview: Anterior flail segments, broken chord (A1, A2). Acute onset of chest pain while in a meeting on05 Mar 2013. Chest pain 03/07/2013 Heart failure, etiology unknown 03/07/2013 Hypertension 03/07/2013 Inguinal hernia without ment ion of obstruction or gangrene, recurrent unilateral or unspecified 09/15/2010 Incisional hernia 09/15/2010 documented as of this encounter (statuses as of 03/22/2023) Resolved Problems Problem Noted Date Diagnosed Date Resolved Date Chronic atrial flutter 03/07/201301/23 documented as of this encounter (statuses as of 03/22/2023) Immunizations Name Administration Dates Next Due Pneumococcal Polysaccharide PPV23 (Pneumovax) Season Influenza, Quad, PF, Adjuvanted, 65+ Yrs, IM (FLUAD) 01/21/2020 Seasonal Influenza, Quadrivalent Hd (Fluzone Hd) 02/22/2021 documented as of this encounter Social History Tobacco Use Types Packs/Day Years Used Date Smoking Tobacco: Never Smokeless Tobacco: Never Alcohol Use Standard Drinks/Week Comments Yes 0 (1 standard drink = 0.6 oz pur e alcohol) social Sex and Gender Information Value Date Recorded Sex Assigned at Not on file Gender Identity Not on file Sexual Orientation Not on file Job Start Date Occupation Industry Not on file Not on file Not on file documented as of this encounter Progress Notes * Julissa Villarreal RN - 03/22/2023 8:54 AM EDT Per Jody Thayer DO patient and contacted. Discussed pacemaker remote received today. He has returned to his normal function. His incision has healed well. Explained remote follow of the pacemaker with his home monitor. They are agreeable to cancelling the HRC scheduled for tomorrow. Julissa Villarreal RN documented in this encounter Plan of Treatment Upcoming Encounters Date Type Department Care Team (Late st Contact Info) Description 03/23/2023 11:30 AM EDT Cardiac Studies Cardiology, [address] [place] [address] [facility]er [facility] [address] [facility] [place] [address] 04/02/2023 1:30 PM EST Anticoagulation Pharmacy, [facility] [place] [address] [facility] [place] [address] Pharmacist1, [facility] [address] [facility] [place] [address] 04/25/2023 9:00 AM EST Telemedicine Neurology, [place] [address] [place] [address] Arnoldo Burrell MD [address] [place] [address] 07/04/2023 2:00 PM EST Office Visit Cardiology, [facility] [address] [facility] [place] [address] Anatoliy Mckinney PA-C 132 [facility] [place] [address] Scheduled Procedures Name Priority Associated Diagnoses Date/Ti me BRONCHOSCOPY DIAGNOSTIC WITH OR WITHOUT WASHING Recall Lung disorder Health Maintenance Due Date Last Done Comments Depression Screening 1948 Albumin/Creatinine Ratio 1954 DTaP,Tdap,and Td Vaccines (1 - Tdap) 08/23/1955 Zoster Vaccines (1 of 2) 1986 Pneumococcal Vaccine: 65+ Years (2 - PCV) 03/08/2014 03/08/2013 COVID-19 Vaccine (2022-24 season) 2023 02/02/2022, 09/30/2021, 03/29/2021, Additional history exists Influenza Vaccine (FLU shot) (#1) 2023 02/22/2021, 01/21/2020 GARDASIL-HPV IMMUNIZATION SERIES Aged Out No longer eligible based on patient's age to complete this topic Hepatitis B Aged Out No longer eligi ble based on patient's age to complete this topic MENINGOCOCCAL (MENACTRA/MENVEO) Aged Out No longer eligible based on patient's age to complete this topic documented as of this encounter Medical Devices Implanted Type Area Security Officer Device Identifier Shelf Expiration Date Model / Serial / Lot Valve Ce Mitral 25mm 6625 - [id number] Implanted:Qty : 1 on 03/14/2013 [place] [facility] [place] - Non Human N/A: Heart [employer] ABRAHAM 07/17/2016 [id number] / [id number] / documented as of this encounter Advance Directives Latest Code Status on File Code Status Date Activated Date Inactivated Comments Full Code 03/14/2013 5:15 PM 03/23/2013 4:30 PM This order reflects the patients wishes and were consensually agreed upon. Code Status History Code Status Date Activated Date Inactivated Comments Full Code 03/06/2013 10:52 PM 03/14/2013 6:35 AM Th is order reflects the patients wishes and were consensually agreed upon. Question Answer Comments Discussion of Advance Directives occurred with: Patient Does the patient have a Living Will? Yes, not currently available Does the patient have Health Care Power of Cardroom Supervisor? Yes, not currently available Care Teams Rn Vascular Relationship Specialty Start Date End Date Clau Mederos MD [address] [place] [address] PCP - General Internal Medicine 01/08/23 documented as of this encounter
--- OUTSIDE RECORDS SUMMARY | 2023-04-09 13:38 | External Medical Summary | Summary of Care ---
Author Name Unknown Organization [facility] Address [address] [place] [address] Phone [phone] Care Team Providers Care Human Resources Benefits Manager Name Role Phone Clau Mederos MD Primary Care Provide r Reason for Visit * Reason Onset Date Comments Other 11/01/2022 [place] / [place] NIED MRI Brain Encounter Details Date Type Department Care Team (Late st Contact Info) Description 11/01/2022 Telephone Neurology, [place] [address] [place] [address] [place], [place] No Resource [address] [place] [address] Other ([place] / DENIED MRI Brain) Allergies Active Allergy Reactions Criticality Noted Date Comments Penicillins 09/15/2010 documented as of this encounter (statuses as of 03/30/2023) Medications Medication Sig Dispensed Refills Start Date [...] 0 Active Furosemide 40 MG Oral Tablet (Lasix)Indications :Chronic 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,S/P AVR (aortic valve replacement),Parox ysmal atrial fibrillation (HCC),HTN, goal below 140/90,S/P MVR (mitral valve replacement),Dysli pidemia, goal LDL below 70 Take 1 Tablet by mouth in the morning. 90 Tablet 3 07/20/2022 Active Spironolactone 25 MG Oral Tablet (Aldactone) Take 0.5 Tabs by mouth daily. 15 Tab 11 09/30/2020 3 Discontinue d(Refill) Potassium Chloride ER 20 MEQ Oral Tablet Extended ReleaseIndications :Chronic 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 Take by mouth 1 Tablet in the morning. 90 Tablet 3 02/06/2022 3 Discontinue d(Patient preference/ discontinua tion) documented as of this encounter (statuses as of 03/30/2023) Active Problems Problem Noted Date Diagnosed Date [...] as of this encounter (statuses as of 03/30/2023) Resolved Problems Problem Noted Date Diagnosed Date Resolved Date Chronic atrial flutter 03/07/201301/23 documented as of this encounter (statuses as of 03/30/2023) Immunizations Name Administration Dates Next Due Pneumococcal [...] on file documented as of this encounter Miscellaneous Notes * Telephone Encounter - Filomena Antoine OSA - 11/01/2022 11:44 AM EDT Images from the original note were not included. Received via mail the Denial letter from [place] [employer] concerning the MRI Brain Denial letter scanned into encounter Will email to [email or web address] to make them aware as the only option is to send supportive notes again and re documented in this encounter Plan of Treatment Upcoming Encounters Date Type Department Care Team (Late st Contact Info) Description 04/02/2023 1:30 PM EST Anticoagulation Pharmacy, [place] [place] [address] [place] [address] Pharmacist1, [facility] [address] [place] [address] 04/25/2023 9:00 AM EST Telemedicine Neurology, [place] [address] [place] [address] Arnoldo Burrell MD [address] [place], [place] [address] 07/04/2023 2:00 PM EST Office Visit Cardiology, [facility] [address] [facility] [place] [address] Anatoliy Mckinney PA-C [address] [place] [address] Scheduled Procedures Name Priority Associated Diagnoses Date/Ti me BRONCHOSCOPY DIAGNOSTIC WITH OR WITHOUT WASHING Recall Lung disorder Health Maintenance Due Date Last Done Comments Depression Screening 1948 Albumin/Creatinine Ratio 1954 DTaP,Tdap,and Td Vaccines (1 - Tdap) 08/23/1955 Zoster Vaccines (1 of 2) 1986 Pneumococcal Vaccine: 65+ Years (2 - PCV) 03/08/2014 03/08/2013 COVID-19 Vaccine (6 - 2022- season) 2023 02/02/2022, 09/30/2021, 03/29/2021, Additional history [...] this encounter Medical Devices Implanted Type Area Gusset Folder Device Identifier Shelf Expiration Date Model / Serial / Lot Valve Ce Mitral 25mm 6625 - [id number] Implanted:Qty : 1 on 03/14/2013 at [place] [facility] [place] Tissue - Non Human N/A: Heart [employer] ABRAHAM 07/17/2016 [id number] / [id number] / documented as of this encounter Advance [...] the patient have Health Care Power of Civil Manager? Yes, not currently available Care Teams Human Resources Benefits Manager Relationship Specialty Start Date End Date Clau Mederos MD [address] [place] [address] PCP - General Internal Medicine 01/08/23 documented as of this encounter
--- OUTSIDE RECORDS SUMMARY | 2023-04-09 13:38 | External Medical Summary | Summary of Care ---
Author Name Unknown Organization [facility] Address [address] [place] [address] Phone [phone] Care Team Providers Care [place]el Name Role Phone Clau Mederos MD Primary Care Provide r Reason for Visit * Reason Onset Date Comments Forms Request 12/13/2022 [place] / En ergy Rehab Encounter Details Date Type Department Care Team Description 12/13/2022 Telephone Neurology, [place] [address] [place] [address] Specified, [place] No Resource [address] [place] [address] Forms Request ([facility] / Energy Rehab) Allergies Active Allergy Reactions Severity Noted Date Comments Penicillins 09/15/2010 documented as of this encounter (statuses as of 03/07/2023) Medications Medication Sig Dispensed Refills Start Date [...] OTHER DAYS 200 Tablet 3 11/13/2022 Active documented as of this encounter (statuses as of 03/07/2023) Active Problems Problem Noted Date Macular degeneration of both eyes 2017 S/P MVR (mitral valve replacement) 01/23 Pulmonary nodules 03/06/2016 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 Acute onset of chest pain while in a meeting on05 Mar 2013. Chest pain 03/07/2013 Heart failure, etiology unknown 03/07/20 13 Hypertension 03/07/2013 Inguinal hernia without ment ion of obstruction or gangrene, recurrent unilateral or unspecified 09/15/2010 Incisional hernia 09/15/2010 documented as of this encounter (statuses as of 03/07/2023) Resolved Problems Problem Noted Date Resolved Date Chronic atrial flutter 03/07/2013 8 documented as of this encounter (statuses as of 03/07/2023) Immunizations Name Administration Dates Next Due Pneumococcal [...] 0.6 oz pur e alcohol) social Sex Assigned at Date Recorded Not on file Job Start Date Occupation Industry Not on file Not on file Not on file documented as of this encounter Miscellaneous Notes * Telephone Encounter - ALEXANDRO Avila - 03/07/2023 1:17 PM EDT Received Energy Rehab Plan of Care from [facility] on 02/27/23. Placed in providers bin for signature. * Telephone Encounter - ALEXANDRO Avila - 02/27/2023 2:55 PM EDT Received Energy Rehab Plan of Care from [facility] on 02/23/23. Placed in providers bin for signature. * Telephone Encounter - ALEXANDRO Avila - 01/19/2023 1:40 PM EDT Energy Rehab Plan of Care signed and faxed to [phone] on 01/19/23. Scanned into patients chart. * Telephone Encounter - ALEXANDRO Avila - 01/18/2023 3:33 PM EDT Received Energy Rehab Plan of Care from [facility] on 01/18/23. Placed in providers bin for signature. * Telephone Encounter - ALEXANDRO Avila - 12/21/2022 10:29 AM EDT Energy Rehab Plan of Care signed and faxed to [phone] on 12/21/22. Scanned into patients chart. * Telephone Encounter - ALEXANDRO Guallpa - 12/13/2022 9:05 AM EDT Received [facility] Re[facility] Plan of Care from [facility] on 12/13/22. Placed in providers bin for signature. documented in this encounter Plan of Treatment Upcoming Encounters Date Type Specialty Care Team Description 03/16/2023 Cardiac Studies Cardiology [facility] [address] [place] [address] 04/02/2023 Anticoagulation Pharmacy Pharmacist1, [facility] [address] [place] [address] 04/25/2023 Telemedicine Neurology [facility]rell [facility] [address] [facility] [address] 07/04/2023 Office Visit Cardiology Anatoliy Mckinney PA-C [address] [place] [address] Scheduled Procedures Name Priority Associated Diagnoses Date/Ti me BRONCHOSCOPY DIAGNOSTIC WITH OR WITHOUT WASHING Recall Lung disorder Health Maintenance Due Date Last Done Comments Depression Screening 1948 Albumin/Creatinine Ratio 1954 DTaP,Tdap,and Td Vaccines (1 - Tdap) 08/23/1955 Zoster Vaccines (1 of 2) 1986 Pneumococcal Vaccine: 65+ Years (2 - PCV) 03/08/2014 03/08/2013 COVID-19 Vaccine (6 - season) 2023 02/02/2022, 09/30/2021, 03/29/2021, Additional history [...] this encounter Medical Devices Implanted Type Area Cow Rider Device Identifier Shelf Expiration Date Model / Serial / Lot Valve Ce Mitral 25mm 6625 - [id number] Implanted:Qty : 1 [place] [facility] [place] - [place] Human N/A: Heart [employer] 07/17/2016 [id number] / [id number] / documented as of this encounter Advance [...] the patient have Health Care Power of Retail Assistant Manager? Yes, not currently available Care Teams Tar Heel Relationship Specialty Start Date End Date Clau Mederos MD [address] [place] [address] PCP - General Internal Medicine 01/08/23 documented as of this encounter
--- OUTSIDE RECORDS SUMMARY | 2023-04-09 13:38 | External Medical Summary | Summary of Care ---
Author Name Unknown Organization [facility] Address [address] [place] [address] Phone [phone] Care Team Providers Care Business Objects Analyst Name Role Phone Clau Mederos MD Primary Care Provide r Reason for Visit * Reason Onset Date Comments Forms Request 12/13/2022 [place] / En ergy Rehab Encounter Details Date Type Department Care Team Description 12/13/2022 Telephone Neurology, [place] [address] [place] [address] Specified, [place] No Resource [address] [place] [address] Forms Request ([facility] / Energy Rehab) Allergies Active Allergy Reactions Severity Noted Date Comments Penicillins 09/15/2010 documented as of this encounter (statuses as of 03/08/2023) Medications Medication Sig Dispensed Refills Start Date [...] as of this encounter (statuses as of 03/08/2023) Active Problems Problem Noted Date Macular degeneration [...] as of this encounter (statuses as of 03/08/2023) Resolved Problems Problem Noted Date Resolved Date Chronic atrial flutter 03/07/2013 8 documented as of this encounter (statuses as of 03/08/2023) Immunizations Name Administration Dates Next Due Pneumococcal [...] * Telephone Encounter - ALEXANDRO Avila - 03/08/2023 3:47 PM EDT Energy Rehab Plan of Care signed and faxed to [phone] on 03/08/23. Scanned into patients chart. * Telephone Encounter - ALEXANDRO Avila - 03/07/2023 1:17 PM EDT Received Energy Rehab Plan of Care from [facility] on 02/27/23. Placed in providers bin for signature. * Telephone Encounter - ALEXANDRO Avila - 02/27/2023 2:55 PM EDT Received Energy Rehab Plan of Care from [facility] on 02/23/23. Placed in providers bin for signature. * Telephone Encounter - ALEXANDRO Avila - 01/19/2023 1:40 PM EDT Energy Rehab Plan of Care signed and faxed to [phone] on 01/19/23. Scanned into patients chart. * Telephone Encounter - ALEXANDRO Avila - 01/18/2023 3:33 PM EDT Received Energy Rehab Plan of Care from [facility] on 01/18/23. Placed in providers bin for signature. * Telephone Encounter - ALEXANDRO Avila - 12/21/2022 10:29 AM EDT Energy Rehab Plan of Care signed and faxed to [phone] on 12/21/22. Scanned into patients chart. * Telephone Encounter - ALEXANDRO Guallpa - 12/13/2022 9:05 AM EDT Received Energey Rehab Plan of Care from [facility] on 12/13/22. Placed in providers bin for signature. documented in this encounter Plan of Treatment Upcoming Encounters Date Type Specialty Care Team Description 03/23/2023 Cardiac Studies Cardiology [facility] [address] [facility] [place] [address] 04/02/2023 Anticoagulation Pharmacy Pharmacist1, [facility] [address] [facility] [place] [address] 04/25/2023 Telemedicine Neurology Arnoldo Burrell MD [address] [place] [address] 07/04/2023 Office Visit Cardiology Anatoliy Mckinney [place] [address] [place] [address] Scheduled Procedures Name Priority Associated Diagnoses Date/Ti me BRONCHOSCOPY DIAGNOSTIC WITH OR WITHOUT WASHING Recall Lung disorder Health Maintenance Due Date Last Done Comments Depression Screening 1948 Albumin/Creatinine Ratio 1954 DTaP,Tdap,and Td Vaccines (1 - Tdap) 08/23/1955 Zoster Vaccines (1 of 2) 1986 Pneumococcal Vaccine: 65+ Years (2 - PCV) 03/08/2014 03/08/2013 COVID-19 Vaccine ( - season) 2023 02/02/2022, 09/30/2021, 03/29/2021, Additional [...] this encounter Medical Devices Implanted Type Area Data Reviewer Device Identifier Shelf Expiration Date Model / Serial / Lot Valve Ce Mitral 25mm 6625 - [id number] Implanted:Qty : 1 on 03/14/2013 at [place] [facility] [place] - Non Human N/A: Heart [employer] ABRAHAM 07/17/2016 [id number] / [id number] / documented as of this encounter Advance [...] the patient have Health Care Power of Admitted Attorneys? Yes, not currently available Care Teams Business Objects Analyst Relationship Specialty Start Date End Date Clau Mederos MD [address] [place] [address] PCP - General Internal Medicine 01/08/23 documented as of this encounter
--- OUTSIDE RECORDS SUMMARY | 2023-04-09 13:38 | External Medical Summary | Summary of Care ---
Author Name Unknown Organization [facility] Address [address] [place] [address] Phone [phone] Care Team Providers Care Manager Of Financial Planning Name Role Phone Clau Mederos MD Primary Care Provide r Reason for Visit * Reason Comments Dosage Adjustment In Person (Anticoag Cl inic) Encounter Details Date Type Department Care Team Description 02/19/2023 Anticoagulation Pharmacy, [facility] [address] [place] [address] Pharmacist1, [facility] [address] [facility] [place] [address] S/P AVR (aortic valve replacement)*; S/P MVR (mitral valve replacement) Allergies Active Allergy Reactions Severity Noted Date Comments Penicillins 09/15/2010 documented as of this encounter (statuses as of 02/19/2023) Medications Medication Sig Dispensed Refills Start Date [...] as of this encounter (statuses as of 02/19/2023) Active Problems Problem Noted Date Macular degeneration [...] as of this encounter (statuses as of 02/19/2023) Resolved Problems Problem Noted Date Resolved Date Chronic atrial flutter 03/07/2013 8 documented as of this encounter (statuses as of 02/19/2023) Immunizations Name Administration Dates Next Due Pneumococcal [...] as of this encounter Progress Notes * Demarco Boyer RPh - 02/19/2023 1:25 PM EDT [phone] (home) [phone] (work) Agree with plan as documented. Demarco Gandhi RPh, CACP, CDE Clinical Pharmacist Medication Therapy [facility] 02/19/2023 1:25 PM * Evelyne Mirza, Pharmacy Executive Compensation Analyst - 02/19/2023 1:13 PM EDT Medication Therapy Disease Management - Anticoagulation Patient: Musa Ricardofelter | : 1935 Subjective Patient-Reported Symptoms: Patient Findings Negatives: Signs/symptoms of thrombosis, Signs/symptoms of bleeding, Change in health, Change in alcohol use, Change in activity, Upcoming invasive procedure, Missed doses, Extra doses, Change in medications, Change in diet/appetite, Bruising Objective Current Warfarin Dose As of 02/19/2023 Warfarin maintenance plan: 4 mg (2 mg x 2) every Sun, Tue, Susy; 6 mg (2 mg x 3) all other days INR Result As of 02/19/2023 INR goal: 2.5-3.5 INR used for dosin.6 (02/19/2023) Assessment & Plan Warfarin Plan As of 02/19/2023 Full warfarin instructions: 4 mg every Sun, Tue, Susy; 6 mg all other days No change documented: Evelyne Mirza Pharmacy Executive Compensation Analyst Next INR check: 04/02/2023 Repeat PT/INR in 6 week(s) Weekly dose: not changed Additional Dosing Information: Description (Takes in AM) Evelyne Mirza PharmD PGY1 Chain Carrier 02/19/2023 1:22 PM documented in this encounter Plan of Treatment Upcoming Encounters Date Type Specialty Care Team Description 03/16/2023 Cardiac Studies Cardiology [facility], [facility] [address] [place] [address] 04/02/2023 Anticoagulation Pharmacy Pharmacist1, [facility] [address] [place] [address] 04/25/2023 Telemedicine Neurology Arnoldo Burrell MD [address] [place] [address] 07/04/2023 Office Visit Cardiology Anatoliy Mckinney PA-C [address] [place] [address] Scheduled Procedures Name Priority Associated Diagnoses Date/Ti me BRONCHOSCOPY DIAGNOSTIC WITH OR WITHOUT WASHING Recall Lung disorder Health Maintenance Due Date Last Done Comments Depression Screening 1947 Albumin/Creatinine Ratio 1954 DTaP,Tdap,and Td Vaccines (1 - Tdap) 08/23/1955 Zoster Vaccines (1 of 2) 1986 Pneumococcal Vaccine: 65+ Years (2 - PCV) 03/08/2014 03/08/2013 Influenza Vaccine (FLU shot) (#1) 2023 02/22/2021, 01/21/2020 COVID-19 Vaccine Completed 02/02/2022, , 03/29/2021, Additional history exists GARDASIL-HPV IMMUNIZATION SERIES Aged Out No longer eligible based on patient's age to complete this topic Hepatitis B Aged Out No longer eligi ble based on patient's age to complete this topic MENINGOCOCCAL (MENACTRA/MENVEO) Aged Out No longer eligible based on patient's age to complete this topic documented as of this encounter Medical Devices Implanted Type Area Termite Renewal Inspector Device Identifier Shelf Expiration Date Model / Serial / Lot Valve Ce Mitral 25mm 6625 - [id number] Implanted:Qty : 1 on 03/14/2013 at OR [facility] [place] Tissue - Non Human N/A: Heart Storwize 07/17/2016 [id number] / [id number] / documented as of this encounter Procedures Procedure Name Priority Date/Time Associated Diagnosis Comments INR FINGERSTICK, POINT OF CARE ZITA 02/19/2023 1:17 PM EDT documented in this encounter Results * INR FINGERSTICK, POINT OF CARE (02/19/2023 1:17 PM EDT) Fingerstick INR 2.6 INR 1:21 PM EDT [facility] 56-02 Blood 02/19/2023 1:17 PM EDT 02/19/2023 1:21 PM EDT Narrative [facility] 56-02 - 02/19/2023 1:21 PM EDT Therapeutic ranges for non-operative patients: Prophylaxsis/treatment of DVT: (Range:2.0-3.0) Treatment of pulmonary embolism:(Range:2.0-3.0) Prevention of systemic embolism from: -tissue heart valves -acute myocardial infarction -valvular heart disease -atrial fibrillation (Range: 2.0-3.0) Mechanical prosthetic valves: (Range: 2.5-3.5) [facility] Pharmacist1 LAB POINT OF C ARE TEST DOCKED DEVICE UNSOLICITED RESULTS [facility] [address] [place] [address] documented in this encounter Visit Diagnoses Diagnosis S/P AVR (aortic valve replacement)- Primary Heart valve replaced by other means S/P MVR (mitral valve replacement) Heart valve replaced by other means documented in this encounter Advance Directives Latest Code Status [...] the patient have Health Care Power of Building Construction Contractor? Yes, not currently available Care Teams Manager Of Financial Planning Relationship Specialty Start Date End Date Clau Mederos MD [address] [place] [address] PCP - General Internal Medicine 01/08/23 documented as of this encounter"
--- OUTSIDE RECORDS SUMMARY | 2023-04-09 13:38 | External Medical Summary | Summary of Care ---
Author Name Unknown Organization [facility] Address [address] [place] [address] Phone [phone] Care Team Providers Care Welder Gas Automatic Name Role Phone Clau Mederos MD Primary Care Provide r Reason for Visit * Reason Onset Date Comments Other 04/06/2023 Encounter Details Date Type Department Care Team (Late st Contact Info) Description 04/06/2023 Telephone Pharmacy Call Center [address] [place] [address] Pharmacist1, [facility] [address] [place] [address] Other Allergies Active Allergy Reactions Criticality Noted Date Comments Penicillins 09/15/2010 documented as of this encounter (statuses as of 04/06/2023) Medications Medication Sig Dispensed Refills Start Date [...] as of this encounter (statuses as of 04/06/2023) Active Problems Problem Noted Date Diagnosed Date [...] as of this encounter (statuses as of 04/06/2023) Resolved Problems Problem Noted Date Diagnosed Date Resolved Date Chronic atrial flutter 03/07/201301/23 documented as of this encounter (statuses as of 04/06/2023) Immunizations Name Administration Dates Next Due Pneumococcal [...] encounter Miscellaneous Notes * Telephone Encounter - Stella Kerr barrel painter - 04/06/2023 9:17 AM EST calling to see if apt r/s documented in this encounter Plan of Treatment Upcoming Encounters Date Type Department Care Team (Late st Contact Info) Description 04/09/2023 1:50 PM EST Anticoagulation Pharmacy, [facility] [place] [address] [facility] [place] [address] Pharmacist1, [facility] [address] [place] [address] 04/25/2023 9:00 AM EST Telemedicine Neurology, [place] [address] [place] [address] Arnoldo Burrell MD [address] [place] [address] 07/04/2023 2:00 PM EST Office Visit Cardiology, [facility] [address] [facility] [address] Anatoliy Mckinney PA-C [address] [place] [address] Scheduled Procedures Name Priority Associated Diagnoses Date/Ti [...] this encounter Medical Devices Implanted Type Area Systems Technologist Device Identifier Shelf Expiration Date Model / Serial / Lot Valve Ce Mitral 25mm 6625 - [id number] Implanted:Qty : 1 on 03/14/2013 at OR [facility] [place] Tissue - Non Human N/A: Heart Dog Digital 07/17/2016 [id number] / [id number] / documented as of this encounter Advance [...] the patient have Health Care Power of Technical Artist? Yes, not currently available Care Teams Welder Gas Automatic Relationship Specialty Start Date End Date Clau Mederos MD [address] [place] [address] PCP - General Internal Medicine 01/08/23 documented as of this encounter
--- OUTSIDE RECORDS SUMMARY | 2023-04-09 13:38 | External Medical Summary ---
Author Name Unknown Address Unknown Organization K09:[facility] [address] Laboratory Report Ordering Provider Test Date Status MAGDAPHARMACIST1 02/19/2023 13:17:29 Final Therapeutic ranges for non-o perative patients:
Prophylaxsis/treatment of DVT: (Range:2.0-3.0)
Treatment of pulmonary embolism:(Range:2.0-3.0)
Prevention of systemic embolism from:
-tissue heart valves
-acute myocardial infarction
-valvular heart disease
-atrial fibrillation
(Range: 2.0-3.0)
Mechanical prosthetic valves: (Range: 2.5-3.5) Observation Date Value Abnormality Reference (Units ) Status INR in Capillary blood by Coagulation assay 02/19/2023 13:17:29 2.6 (INR) Final Performing Location [facility] [address]
--- OUTSIDE RECORDS SUMMARY | 2023-04-09 13:38 | External Medical Summary | Continuity of Care Document ---
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 He has no prior history of skin cancer. Now here for recheck. Has not been outside the sun at all. Is confined to a wheelchair. Physical examination: Is a well-developed well-nourished white male type II skin. Alert and oriented x3. Examination of scalp face ears neck back chest abdomen hands and arms reveal numerous red to purple papules on the anterior trunk flanks and shoulders. Is multiple brown verruca hyperkeratotic papules in the back. Skin is quite dry particular on the legs. 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 #2 seborrheic keratosis on the trunk. #3 xerosis. #4 no evidence for atypical nevi or skin cancer. Plan: Reassurance. Dry skin care was discussed. Return for recheck in 1 year. Medications Coumadin 2 mg oral tablet Start: 12/10/12 8:42:00, 3 tab, PO, Daily Start Date: 12/10/12 Status: Ordered furosemide 40 mg oral tablet Start: 12/10/12 8:42:00, 1 tab, PO, Daily Start Date: 12/10/12 Status: Ordered Lipitor 20 mg oral tablet Start: 12/17/13 8:26:00, 1 tab, PO, qhs Start Date: 12/17/13 Status: Ordered Lucentis Start: 01/07/19 11:42:00 EDT, injection both eyes every 8 weeks Start Date: 01/07/19 Status: Ordered multivitamin Start: 04/03/23 11:50:00 EST, 1 tab, PO, Daily Start Date: 04/03/23 Status: Ordered PreserVision oral tablet Start: 12/17/15 9:48:00, 1 tab, PO, Daily Start Date: 12/17/15 Status: Ordered sotalol Start: 12/17/13 8:26:00 EDT, 20 mg =, PO, Daily Start Date: 12/17/13 Status: Ordered spironolactone 25 mg oral tablet Start: 01/14/21 9:07:00 EDT, PO, Daily, 0.5 tablet Start Date: 01/14/21 Status: Ordered Super B Complex Start: 04/03/23 11:51:00 EST Start Date: 04/03/23 Status: Ordered valACYclovir 500 mg oral tablet Start: 12/29/22 13:51:00 EDT, See Instructions, Disp# 10 tab, Refills: 0, take 1 tablet by mouth twice a day, Pharmacy: [id number] Start Date: 12/29/22 Status: Ordered Mental Status 04/03/23 Barriers to Learning one year None evide nt Mandatory Health Literacy Documentation Yes Health Literacy Communication Barriers N ever Primary Language Vietnamese Problem List Condition Confirmation Course Effective Dates Status Health St atus Informant Afib Confirmed Active CHF (congestive heart failure) Confirmed Active Hx of intermodal dispatcher use of blood thinners Confirmed Active Elevated cholesterol Confirmed Active Rotator cuff injury Confirmed Active Neuropathy Confirmed Active Skin lesion Confirmed Active Wart Confirmed Active Diagnosis Diagnosis Type Effective Dates Health Status Cl inical Service Informant SK (seborrheic keratosis) Discharge Diagnosis 04/03/23 Mckeon angioma Discharge Diagnosis 04/03/23 Procedures Procedure Date Related Diagnosis Body Site Status Surgery 1 12/2022 Completed Surgery 2 08/2019 Completed Punch biopsy of skin 12/10/12 Comp leted aortic valve replacement Completed Hernia repair Completed Mitral valve operation 3 Completed 1pacemaker placed 2catracts both eyes 2012 Social History Social History Type Response Smoking Status Never smoked cigaret bernard Sex Male Outpatient Note * MD Harleen, Bob Michael: PERFORM Event Display: .Outpt Note Authored Date: [id number] OUTPATIENT NOTE Name: ALESSANDRO MONTERO Patient Number:[id number] : 1935 Date of Service: 04/03/2023 _ Mr Montero comes for a recheck of his skin. He has no prior history of skin cancer. Now here for recheck. Has not been outside the sun at all. Is confined to a wheelchair. Physical examination: Is a well-developed well-nourished white male type II skin. Alert and oriented x3. Examination of scalp face ears neck back chest abdomen hands and arms reveal numerous red to purple papules on the anterior trunk flanks and shoulders. Is multiple brown verruca hyperkeratotic papules in the back. Skin is quite dry particular on the legs. 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 #2 seborrheic keratosis on the trunk. #3 xerosis. #4 no evidence for atypical nevi or skin cancer. Plan: Reassurance. Dry skin care was discussed. Return for recheck in 1 year. Electronic Signature on File Electronically Reviewed/Signed by: Bob Canseco MD Author Signature Dt/Tm:04/03/2023 12:03 PM Department of Dermatology DLS Patient Care team information Care Team Related Persons Name: JADA MONTERO Address: home [address] [place] [phone]
--- OUTSIDE RECORDS SUMMARY | 2023-04-09 13:38 | External Medical Summary | Summary of Care ---
Author Name Unknown Organization [facility] Address [address] [place] [address] Phone [phone] Care Team Providers Care Cinder Crusher Operator Name Role Phone Clau Mederos MD Primary Care Provide r Encounter Details Date Type Department Care Team (Late st Contact Info) Description 03/30/2023 Result Scan Unspecified Department Toni Painter MD [address] [place] [address] <No scans attached> Allergies Active Allergy Reactions Criticality Noted Date [...] on file documented as of this encounter Plan of Treatment Upcoming Encounters Date Type Department Care Team (Late st Contact Info) Description 04/02/2023 1:30 PM EST [facility] [place] [address] [place] [address] Pharmacist1, [facility] [address] [facility] [place] [address] 04/25/2023 9:00 AM EST Telemedicine Neurology, [place] [address] [place] [address] Arnoldo Burrell MD [address] [place] [address] 07/04/2023 2:00 PM EST Office Visit Cardiology, [facility] [address] [place] [address] Anatoliy Mckinney PA-C [address] [place] [address] Scheduled Procedures Name Priority Associated Diagnoses Date/Ti [...] this encounter Medical Devices Implanted Type Area Florist Designer Device Identifier Shelf Expiration Date Model / Serial / Lot Valve Ce Mitral 25mm 6625 - [id number] Implanted:Qty : 1 on 03/14/2013 at OR [facility] [place] Tissue - Non Human N/A: Heart Digital Caddies 07/17/2016 [id number] / [id number] / documented as of this encounter Procedures Procedure Name Priority Date/Time Associated Diagnosis Comments CARDIOLOGY SCANNED RESULT 03/30/2023 documented in this encounter Results * CARDIOLOGY SCANNED RESULT (03/30/2023) 03/30/2023 Toni Painter MD OTHER documented in this encounter Advance Directives Latest [...] the patient have Health Care Power of Metal Cut Off Saw Operator? Yes, not currently available Care Teams Cinder Crusher Operator Relationship Specialty Start Date End Date Clau Mederos MD [address] [place] [address] PCP - General Internal Medicine 01/08/23 documented as of this encounter
--- OUTSIDE RECORDS SUMMARY | 2023-04-09 13:38 | External Medical Summary | Summary of Care ---
Author Name Unknown Organization [facility] Address [address] [place] [address] Phone [phone] Care Team Providers Care Ice Cream Scooper Name Role Phone Clau Mederos MD Primary Care Provide r Reason for Visit * Reason Onset Date Comments Forms Request 12/13/2022 [place] / En ergy Rehab Encounter Details Date Type Department Care Team Description 12/13/2022 Telephone Neurology, [place] [address] [place] [address] Specified, [place] [facility] [address] [place] [address] Forms Request ([facility] / [facility]) Allergies Active Allergy Reactions Severity Noted Date Comments Penicillins 09/15/2010 documented as of this encounter (statuses as of 02/27/2023) Medications Medication Sig Dispensed Refills Start Date [...] as of this encounter (statuses as of 02/27/2023) Active Problems Problem Noted Date Macular degeneration [...] as of this encounter (statuses as of 02/27/2023) Resolved Problems Problem Noted Date Resolved Date Chronic atrial flutter 03/07/2013 8 documented as of this encounter (statuses as of 02/27/2023) Immunizations Name Administration Dates Next Due Pneumococcal [...] Received [facility] Plan of Care from [facility] on 02/23/23. Placed in providers bin for signature. * Telephone Encounter - ALEXANDRO Avila - 01/19/2023 1:40 PM EDT [facility] Plan of Care signed and faxed to [phone] on 01/19/23. Scanned into patients chart. * Telephone Encounter - ALEXANDRO Avila - 01/18/2023 3:33 PM EDT Received [facility] Plan of Care from [facility] on 01/18/23. Placed in providers bin for signature. * Telephone Encounter - ALEXANDRO Avila - 12/21/2022 10:29 AM EDT [facility] Plan of Care signed and faxed to [phone] on 12/21/22. Scanned into patients chart. * Telephone Encounter - ALEXANDRO Guallpa - 12/13/2022 9:05 AM EDT Received [facility] Plan of Care from [facility] on 12/13/22. Placed in providers bin for signature. documented in this encounter Plan of Treatment Upcoming Encounters Date Type Specialty Care Team Description 03/16/2023 [facility] [address] [place] [address] 04/02/2023 Anticoagulation Pharmacy Pharmacist1, [facility] [address] [place] [address] 04/25/2023 Telemedicine Neurology Arnoldo Burrell MD [address] [place] [address] 07/04/2023 Office Visit Cardiology Anatoliy Mckinney PA-C [address] [place] [address] Scheduled Procedures Name Priority Associated Diagnoses Date/Ti me BRONCHOSCOPY DIAGNOSTIC WITH OR WITHOUT WASHING Recall Lung disorder Health Maintenance Due Date Last Done Comments Depression Screening 1947 Albumin/Creatinine Ratio 1953 DTaP,Tdap,and Td Vaccines (1 - Tdap) 08/23/1955 Zoster Vaccines (1 of 2) 1986 Pneumococcal Vaccine: 65+ Years (2 - PCV) 03/08/2014 03/08/2013 COVID-19 Vaccine (6 - 2022-24 season) 2023 02/02/2022, 09/30/2021, 03/29/2021, Additional history [...] this encounter Medical Devices Implanted Type Area Kiln Tender Device Identifier Shelf Expiration Date Model / Serial / Lot Valve Ce Mitral 25mm 6625 - [id number] Implanted:Qty : 1 on 03/14/2013 at OR [facility] [place] Tissue - Non Human N/A: Heart LedgerX 07/17/2016 [id number] / [id number] / documented as of this encounter Advance [...] the patient have Health Care Power of Adoption Social Worker? Yes, not currently available Care Teams Ice Cream Scooper Relationship Specialty Start Date End Date Clau Mederos MD [address] [facility], [place] [address] PCP - General Internal Medicine 01/08/23 documented as of this encounter
--- OUTSIDE RECORDS SUMMARY | 2023-04-09 13:38 | External Medical Summary | Summary of Care ---
Author Name Unknown Organization [facility] Address [address] [place] [address] Phone [phone] Care Team Providers Care Repair Specialist Name Role Phone Clau Mederos MD Primary Care Provide r Reason for Visit * Reason Onset Date Comments Forms Request 12/13/2022 [place] / En ergy Rehab Encounter Details Date Type Department Care Team Description 12/13/2022 Telephone Neurology, [place] [address] [place] [address] Specified, [place] [facility] [address] [place] [address] Forms Request (Friedartemio / Energy [...] Plan of Care signed and faxed to [phone] on 03/08/23. Scanned into patients chart. * Telephone Encounter - ALEXANDRO Avila - 03/07/2023 1:17 PM EDT Received Energy Rehab Plan of Care from [facility] on 02/27/23. Placed in providers bin for signature. * Telephone Encounter - ALEXANDRO Avila - 02/27/2023 2:55 PM EDT Received Energy Rehab Plan of Care from [facility] on 02/23/23. Placed in providers bin for signature. * Telephone Encounter - ALEXANDRO Avila - 01/19/2023 1:40 PM EDT Energy Rehab Plan of Care signed and faxed to [phone] on 01/19/23. Scanned into patients chart. * Telephone Encounter - ALEXANDRO Avila - 01/18/2023 3:33 PM EDT Received Energy Rehab Plan of Care from [facility] on 01/18/23. Placed in providers bin for signature. * Telephone Encounter - ALEXANDRO Avila - 12/21/2022 10:29 AM EDT Energy Rehab Plan of Care signed and faxed to [phone] on 12/21/22. Scanned into patients chart. * Telephone Encounter - ALEXANDRO Guallpa - 12/13/2022 9:05 AM EDT Received Energey Rehab Plan of Care from [facility] on 12/13/22. Placed in providers bin for signature. documented in this encounter Plan of Treatment Upcoming Encounters Date Type Specialty Care Team Description 03/23/2023 Cardiac Studies Cardiology [facility] [address] [facility] [place] [address] 04/02/2023 Anticoagulation Pharmacy Pharmacist1, [facility] [address] [facility] [place] [address] 04/25/2023 Telemedicine Neurology Arnoldo Burrell MD [address] [place] [address] 07/04/2023 Office Visit Cardiology Anatoliy Mckinney PADez [address] [place] [address] Scheduled Procedures Name Priority Associated Diagnoses Date/Ti [...] this encounter Medical Devices Implanted Type Area Pattern Mechanic Device Identifier Shelf Expiration Date Model / Serial / Lot Valve Ce Mitral 25mm 6625 - [id number] Implanted:Qty : 1 on 03/14/2013 at [place] [facility] [place] Tissue - Non Human N/A: Heart [employer] ABRAHAM 07/17/2016 [id number] / [id number] / documented as of this encounter Advance [...] the patient have Health Care Power of Gate Clerk? Yes, not currently available Care Teams Repair Specialist Relationship Specialty Start Date End Date Clau Mederos MD [address] [place] [address] PCP - General Internal Medicine 01/08/23 documented as of this encounter
--- OUTSIDE RECORDS SUMMARY | 2023-04-09 13:38 | External Medical Summary | Summary of Care ---
Author Name Unknown Organization [facility] Address [address] [place] [address] Phone [phone] Care Team Providers Care Net Maker Name Role Phone Clau Mederos MD Primary Care Provide r Reason for Visit * Reason Onset Date Comments Appointment 03/07/2023 Encounter Details Date Type Department Care Team Description 03/07/2023 Telephone Cardiology, [facility] [address] [place] [address] [facility] [address] [place] [address] Appointment Allergies Active Allergy Reactions Severity Noted Date [...] encounter Miscellaneous Notes * Telephone Encounter - Camelia Millard RN - 03/08/2023 9:20 AM EDT Spoke with patient's spouse. Assisted in rescheduling. * Telephone Encounter - Camelia Millard RN - 03/07/2023 11:15 AM EDT Called, left message for patient to return call regarding 03/16/23 device clinic appointment. Due to nurse/rep availability, will need to bring patient in earlier in day on 03/16/23. Please assist in scheduling in AM of 03/16/23 or following Sunday if unable to come in AM 03/16/23. documented in this encounter Plan of Treatment Upcoming Encounters Date Type Specialty Care Team Description 03/23/2023 Cardiac Studies Cardiology [facility] [address] [place] [address] 04/02/2023 Anticoagulation Pharmacy Pharmacist1, [facility] [address] [facility] [address] 04/25/2023 Telemedicine Neurology Arnoldo Burrell MD [address] [place], [place] [phone] 07/04/2023 Office Visit Cardiology Anatoliy Mckinney PA-C [address] [place] [address] Scheduled Procedures Name Priority Associated Diagnoses Date/Ti [...] this encounter Medical Devices Implanted Type Area Ornamental Machine Operator Device Identifier Shelf Expiration Date Model / Serial / Lot Valve Ce Mitral 25mm 6625 [id number] Implanted:Qty : 1 on 03/14/2013 at [place] [facility] [place] Tissue - Non Human N/A: Heart [employer] ABRAHAM 07/17/2016 [id number] / [id number] / documented as of this encounter Advance [...] the patient have Health Care Power of Shade Hanger? Yes, not currently available Care Teams Net Maker Relationship Specialty Start Date End Date Clau Mederos MD [address] [place] [address] PCP - General Internal Medicine 01/08/23 documented as of this encounter
--- OUTSIDE RECORDS SUMMARY | 2023-04-09 13:38 | External Medical Summary | Summary of Care ---
Author Name Unknown Organization [facility] Address [address] [place] [address] Phone [phone] Care Team Providers Care Hotel Maintenance Technician Name Role Phone Clau Mederos MD Primary Care Provide r Encounter Details Date Type Department Care Team Description 02/19/2023 Result Scan Unspecified Department Toni Painter MD [address] [place] [address] <No scans attached> Allergies Active Allergy Reactions Severity Noted Date [...] Care Team Description 03/16/2023 Cardiac Studies Cardiology [facility]ia [facility] [address] [place] [address] 04/02/2023 Anticoagulation Pharmacy Pharmacist1, [facility] [address] [place] [address] 04/25/2023 Telemedicine Neurology Arnoldo Burrell MD [address] [place], [place] [phone] 07/04/2023 Office Visit Cardiology Anatoliy Mckinney PA-C [address] [place] [address] Scheduled Procedures Name Priority Associated Diagnoses Date/Ti [...] this encounter Medical Devices Implanted Type Area Photography Spotter Device Identifier Shelf Expiration Date Model / Serial / Lot Valve Ce Mitral 25mm 6625 - [id number] Implanted:Qty : 1 on 03/14/2013 at [place] [facility] [place] Tissue - Non Human N/A: Heart [employer] 07/17/2016 [id number] / [id number] / documented as of this encounter Procedures Procedure Name Priority Date/Time Associated Diagnosis Comments CARDIOLOGY SCANNED RESULT 02/19/2023 documented in this encounter Results * CARDIOLOGY SCANNED RESULT (02/19/2023) 02/19/2023 Toni Painter MD OTHER documented in this [...] the patient have Health Care Power of [employer] Driver? Yes, not currently available Care Teams Hotel Maintenance Technician Relationship Specialty Start Date End Date Clau Mederos MD [address] [place] [address] PCP - General Internal Medicine 01/08/23 documented as of this encounter
--- OUTSIDE RECORDS SUMMARY | 2023-04-09 13:39 | External Medical Summary | Summary of Care ---
Author Name Unknown Organization [facility] Address [address] [place] [address] Phone [phone] Care Team Providers Care Reptile Farmer Name Role Phone Clau Mederos MD Primary Care Provide r Reason for Visit * Reason Onset Date Comments Appointment 12/26/2022 Wound check Encounter Details Date Type Department Care Team Description 12/26/2022 Telephone Cardiology, [facility] [address] [place] [address] Jody Thayer, [address] [place], [place] [phone] Appointment (Wound check) Allergies Active Allergy Reactions Severity Noted Date Comments Penicillins 09/15/2010 documented as of this encounter (statuses as of 12/26/2022) Medications Medication Sig Dispensed Refills Start Date [...] hronic 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 (HCC),S/P AVR (aortic valve replacement),Paroxys mal atrial fibrillation [...] as of this encounter (statuses as of 12/26/2022) Active Problems Problem Noted Date Macular degeneration [...] as of this encounter (statuses as of 12/26/2022) Resolved Problems Problem Noted Date Resolved Date Chronic atrial flutter 03/07/2013 8 documented as of this encounter (statuses as of 12/26/2022) Immunizations Name Administration Dates Next Due Pneumococcal Polysaccharide PPV23 (Pneumovax) Seasonal Influenza, Quadrivalent Hd (Fluzone Hd) 02/22/2021 Seasonal Influenza, Quadriva lent, No Preserve, Adjuvanted, 65+ Yrs, IM 01/21/2020 documented as of this encounter Social History [...] Miscellaneous Notes * Telephone Encounter - ALEXANDRO Mckeon - 12/26/2022 3:37 PM EDT Pt for ppm on 01/10 needs a wound check following week documented in this encounter Plan of Treatment Upcoming Encounters Date Type Specialty Care Team Description 01/04/2023 Cardiac Studies Cardiac Studies 01/08/2023 Laboratory [facility] [place], Lab Scenery [address] [place] [address] 01/08/2023 Anticoagulation Pharmacy Pharmacist1, [facility] [address] [place] [address] Pt for a ppm on 01/10 he will get lab work on 01/08 can you help me ensure 01/09/2023 Anticoagulation Pharmacy Pharmacist1, [facility] [address] [place] [address] 04/25/2023 Telemedicine Neurology Arnoldo Burrell MD [address] [place] [address] 07/04/2023 Office Visit Cardiology Anatoliy Mckinney PA-C [address] [place] [address] Scheduled Procedures Name Priority Associated Diagnoses Date/Ti me BRONCHOSCOPY DIAGNOSTIC WITH OR WITHOUT WASHING Recall Lung disorder Health Maintenance Due Date Last Done Comments Depression Screening, Annual for Pts 12 and Over 1948 Albumin/Creatinine Ratio 1954 DTaP,Tdap,and Td Vaccines [...] this encounter Medical Devices Implanted Type Area Cardiothoracic Icu Rn Device Identifier Shelf Expiration Date Model / Serial / Lot Valve Ce Mitral 25mm 6625 - [id number] Implanted:Qty : 1 on 03/14/2013 at OR [facility] Tissue - Non Human N/A: Heart [employer] ABRAHAM 07/17/2016 [id number] / [id number] / documented as of this encounter Advance [...] the patient have Health Care Power of Credit Checker? Yes, not currently available Care Teams Reptile Farmer Relationship Specialty Start Date End Date Clau Mederos MD PCP - General Internal Medicine 09/30/21 documented as of this encounter
--- OUTSIDE RECORDS SUMMARY | 2023-04-09 13:39 | External Medical Summary | Summary of Care ---
Author Name Unknown Organization [facility] Address [address] [place] [address] Phone [phone] Care Team Providers Care Butt Maker Name Role Phone Clau Mederos MD Primary Care Provide r Reason for Visit * Reason Comments Dosage Adjustment In Person (Anticoag Cl inic) Encounter Details Date Type Department Care Team Description 01/08/2023 Anticoagulation Pharmacy, [facility] [address] [place] [address] Pharmacist1, [facility] [address] [facility] [place] [address] S/P AVR (aortic valve replacement)*; S/P MVR (mitral valve replacement); Anticoagulation management encounter; [facility] current use of anticoagulant therapy Allergies Active Allergy Reactions Severity Noted Date Comments Penicillins 09/15/2010 documented as of this encounter (statuses as of 01/08/2023) Medications Medication Sig Dispensed Refills Start Date [...] as of this encounter (statuses as of 01/08/2023) Active Problems Problem Noted Date Macular degeneration [...] as of this encounter (statuses as of 01/08/2023) Resolved Problems Problem Noted Date Resolved Date Chronic atrial flutter 03/07/2013 8 documented as of this encounter (statuses as of 01/08/2023) Immunizations Name Administration Dates Next Due Pneumococcal [...] of this encounter Progress Notes * Demarco Gandhi V, [facility] - 01/08/2023 3:24 PM EDT Medication Therapy Disease Management - Anticoagulation Musa Zhou 1935 Description (Takes in AM) Patient Findings Positives: Upcoming invasive procedure (He has a pacemaker placenet procedure 01/10 at ~11AM and needs INR to be <2.3 then. Dose adjusted to get INR to appropriate level.) Negatives: Signs/symptoms of thrombosis, Signs/symptoms of bleeding, Change in health, Change in alcohol use, Change in activity, Missed doses, Extra doses, Change in medications, Change in diet/appetite, Bruising INR Result As of 01/08/2023 INR goal: 2.5-3.5 INR used for dosin.8 (01/08/2023) Warfarin Plan As of 01/08/2023 Full warfarin instructions: 01/09: Hold; 01/10: 4 mg; Otherwise 4 mg every Sun, Sun, Sun; 6 mg all other days Next INR check: 02/19/2023 Repeat PT/INR in 6 week(s) Weekly dose: not changed Demarco Gandhi RPh, CACP, CDE Clinical Pharmacist Medication Therapy [facility] 01/08/2023 3:37 PM documented in this encounter Plan of Treatment Upcoming Encounters Date Type Specialty Care Team Description 01/08/2023 Anticoagulation Pharmacy Pharmacist1, [facility] [address] [facility] [place] [address] S/P AVR (aortic valve replacement)*; S/P MVR (mitral valve replacement) 01/19/2023 Cardiac Studies Cardiology [facility]er [facility] [address] [place] [address] 02/19/2023 Anticoagulation Pharmacy Pharmacist1, [facility] [address] [facility] [place] [address] 04/25/2023 Telemedicine Neurology Arnoldo Burrell MD [address] [place], [place] [address] 07/04/2023 Office Visit Cardiology Anatoliy Mckinney PA-C [address] [place] [address] Scheduled Procedures Name Priority Associated Diagnoses Date/Ti [...] this encounter Medical Devices Implanted Type Area Hide Spreader Device Identifier Shelf Expiration Date Model / Serial / Lot Valve Ce Mitral 25mm 6625 - [id number] Implanted:Qty : 1 on 03/14/2013 at [place] [facility] [place] Tissue - Non Human N/A: Heart [employer] 07/17/2016 [id number] / [id number] / documented as of this encounter Procedures Procedure Name Priority Date/Time Associated Diagnosis Comments INR FINGERSTICK, POINT OF CARE STAT 01/08/2023 3:27 PM EDT S/P AVR (aortic valve replacement) S/P MVR (mitral valve replacement) Anticoagulation management encounter technician terminal and repeater current use of anticoagulant therapy documented in this encounter Results * INR FINGERSTICK, POINT OF CARE (01/08/2023 3:27 PM EDT) Fingerstick INR 2.8 INR 3:28 PM EDT [facility] [place] [facility] Blood 01/08/2023 3:27 PM EDT 01/08/2023 3:28 PM EDT Narrative [facility] 56-02 - 01/08/2023 3:28 PM EDT Therapeutic ranges for non-operative patients: Prophylaxsis/treatment of DVT: (Range:2.0-3.0) Treatment of pulmonary embolism:(Range:2.0-3.0) Prevention of systemic embolism from: -tissue heart valves -acute myocardial infarction -valvular heart disease -atrial fibrillation (Range: 2.0-3.0) Mechanical prosthetic valves: (Range: 2.5-3.5) Demarco Boyer RP LAB POINT OF CARE TE ST DOCKED DEVICE UNSOLICITED RESULTS [facility] [place] [facility] [place] [address] documented in this encounter Visit Diagnoses Diagnosis S/P AVR (aortic valve replacement)- Primary Heart valve replaced by other means S/P MVR (mitral valve replacement) Heart valve replaced by other means S/P AVR (aortic valve replacement)- Primary Heart valve replaced by other means S/P MVR (mitral valve replacement) Heart valve replaced by other means Anticoagulation management encounter Encounter for therapeutic drug monitoring technician terminal and repeater current use of anticoagulant therapy documented in this encounter Advance Directives Latest [...] the patient have Health Care Power of Concrete Grinder Operator? Yes, not currently available Care Teams Butt Maker Relationship Specialty Start Date End Date Clau Mederos MD [address] [place] [address] PCP - General Internal Medicine 01/08/23 documented as of this encounter
--- OUTSIDE RECORDS SUMMARY | 2023-04-09 13:39 | External Medical Summary ---
Author Name Unknown Address Unknown Organization [id number]:LABORATORY [facility] - [address] [facility] [address] Laboratory Report Ordering Provider Test Date Status MYESHA RITCHIE 01/08/2023 15:36:50 Final Observation Date Value Abnormality Reference (Units ) Status BUN 01/08/2023 15:36:50 28 Above high normal 6-20 (mg/dL) Final Creatinine 01/08/2023 15:36:50 1.6 Above high normal 0.6-1.2 (mg/dL) Final Glomerular filtration rate/1.73 sq M.predicted [Volume Rate/Area] in Serum, Plasma or Blood by Creatinine-based formula (CKD-EPI) 01/08/2023 15:36:50 43 Below low normal >=60 (mL/min) Final eGFR is calculated based on the CKD-EPI 2020 equation SODIUM 01/08/2023 15:36:50 138 135-146 (m mol/L) Final Potassium 01/08/2023 15:36:50 4.4 3.5-5.1 (m mol/L) Final Cl 01/08/2023 15:36:50 100 98-107 (mm ol/L) Final CO2 01/08/2023 15:36:50 28 22-32 (mmo l/L) Final Anion gap 01/08/2023 15:36:50 10 7-15 (mmol /L) Final Glucose 01/08/2023 15:36:50 82 70-120 (mg /dL) Final Albumin 01/08/2023 15:36:50 4.0 3.8-5.0 (g /dL) Final AST (Aspartate aminotransferase) 01/08/2023 15:36:50 27 10-50 (U/L) Final Alk Phos 01/08/2023 15:36:50 85 35-130 (U/ L) Final Bilirubin, Total 01/08/2023 15:36:50 0.3 <=1 .2 (mg/dL) Final Calcium 01/08/2023 15:36:50 10.1 8.4-10.2 ( mg/dL) Final Protein 01/08/2023 15:36:50 7.9 6.0-8.3 (g /dL) Final ALT (Alanine aminotransferase) 01/08/2023 15:36:50 28 10-50 (U/L) Final Performing Location LABORATORY [facility] - [address] [facility] [address]
--- OUTSIDE RECORDS SUMMARY | 2023-04-09 13:39 | External Medical Summary | Summary of Care ---
Author Name Unknown Organization [facility] Address [address] [place] [address] Phone [phone] Care Team Providers Care Orthodontic Assistant Name Role Phone Clau Mederos MD Primary Care Provide r Reason for Referral * Precert (Within 10 days (routine)) - Authorized Specialty Diagnoses / Procedures Referred By Contac t Referred To Contact Cardiac Studies Diagnoses S/P MVR (mitral valve replacement) S/P AVR (aortic valve replacement) Pulmonary hypertension (HCC) Primary hypertension Diastolic heart failure due to valvular disease, unspecified heart failure chronicity (HCC) Pre-operative cardiovascular examination 1st degree AV block SSS (sick sinus syndrome) (HCC) Procedures ECHO, COMPLETE (2D), TRANS-THORACIC Jody Thayer DO [address] [place] [address] Referral ID Status Reason Start Date Expiration Date V isits Requested Visits Authorized [id number] Authorized Precert 12/29/2022 02/27/2023 999 999 Reason for Visit * Reason Comments Consultation * Evaluate & Treat - Unlimited Visits (Within 10 days (routine)) - Pending Review Specialty Diagnoses / Procedures Referred By Contact Referred To Contact Cardiac Electrophysiology / Cardiology Diagnoses S/P MVR (mitral valve replacement) S/P AVR (aortic valve replacement) Toni Painter MD [address] [place] [address] Referral ID Status Reason Start Date Expiration Date Visits Requested Visits Authorized [id number] Pending Review Specialty Services Required 12/14/2022 999 999 Encounter Details Date Type Department Care Team Description 12/26/2022 Office Visit Cardiology, [facility] [address] [place] [address] Jody Thayer, [address] [place] [address] S/P MVR (mitral valve replacement)*; S/P AVR (aortic valve replacement); Pulmonary hypertension (HCC); Primary hypertension; Diastolic heart failure due to valvular disease, unspecified heart failure chronicity (HCC); Pre-operative cardiovascular examination; 1st degree AV block; SSS (sick sinus syndrome) ([facility]) Allergies Active Allergy Reactions Severity Noted Date [...] AVR (aortic valve replacement) 03/07 Overview: Mechanical, 1995 Mitral valve regurgitation 03/07/2013 Overview: Anterior flail [...] on file documented as of this encounter Last Filed Vital Signs Vital Sign Reading Time Taken Comments Blood Pressure 116/76 12/26/2022 3:01 PM EDT Pulse 60 12/26/2022 3:01 PM EDT Temperature - - Respiratory Rate 16 12/26/2022 3:01 PM EDT Oxygen Saturation - - Inhaled Oxygen Concentration - - Weight - - Height - - Body Mass Index - - documented in this encounter Progress Notes * Jody Thayer, - 12/26/2022 3:13 PM EDT Subjective Musa Zhou is a 87 year old male. Chief Complaint Patient presents with Consultation Pt referred to EP due to SSS Referring Provider: Dr. Painter Cardiac Problems: Bicuspid aortic valve status post initial aortic valve replacement in 1994 with a Saint Ry mechanical prosthesis. With re-operation in February of 2013 for flail anterior mitral valve leaflet and severe mitral insufficiency, undergoing mitral valve replacement with porcine bioprosthesis. 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 Idiopathic polyneuropathy HPI: Pt presents with his and pediatric acute care unit nurse today A couple of weeks ago he felt something come over him and it immobilized him briefly and his caregiver took his pulse and it was very slow; he was lightheaded and nauseous; he had several days of having an number of these. 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 Diclofenac Sodium 1 % gel USW 1 GRAM EXTERNALLY 4 TIMES DAILY 0 One-A-Day Mens 50+ Oral Tablet Take by mouth 1 Tablet daily . Sotalol HCl 80 MG Oral Tablet (Betapace) Take by mouth 0.5 Tablets in the morning. 45 Tablet 3 Atorvastatin Calcium 20 MG Oral Tablet (Lipitor) Take by mouth 1 Tablet in the morning. 90 Tablet 3 PreserVision AREDS 2+Multi Vit Oral Capsule Take by mouth. 2 tablets daily Vitamin C 500 MG Oral Capsule Take by mouth. Vitamin B-12 100 MCG Oral Tablet (vitamin B-12) Take 1 Tablet by mouth in the morning. Furosemide 40 MG Oral Tablet (Lasix) Take 1 Tablet by mouth in the morning. 90 Tablet 3 Warfarin Sodium 2 MG Oral Tablet (Coumadin) TAKE 3 TABLETS (6MG) DAILY ON SUNDAY AND SUNDAY AND 2 TABLETS (4MG) ALL OTHER DAYS 200 Tablet 3 Magnesium 400 MG Oral Tablet Take by mouth. Zinc 100 MG Oral Tablet Take by mouth. B Complex-C Oral Tablet Take 1 Tablet by mouth in the morning. Spironolactone 25 MG Oral Tablet (Aldactone) Take 0.5 Tablets by mouth in the morning. 50 Tablet 3 No current facility-administered medications for this visit. Past Medical History: Diagnosis Date CHF (congestive heart failure) (HCC) 05/2012 Interstitial lung disease (HCC) 03/13/2013 With nodularity Jaundice age 10 hepatitis exposure Mitral valve regurgitation 03/05/2013 Anterior flail segments, broken chord (A1, A2). Acute onset of chest pain while in a meeting on05 Mar 2013. Obstructive sleep apnea 03/13/2013 Home CPAP Pneumonia 05/2012 S/P AVR (aortic valve replacement) 2995 Mechanical, Dr. Stout, [facility] (hx bicuspid aortic valve) Past Surgical History: Procedure Laterality Date CORONARY ANGIOGRAPHY W/LEFT HEART CATH 03/07/2013 CORONARY ANGIOGRAPHY W/LEFT HEART CATH performed by Janie Miller MD at [facility] MISCELLANEOUS ORDER ([facility] ONLY) [facility] repair MISCELLANEOUS ORDER ([facility] ONLY) 1994 Heart valve-[facility] MISCELLANEOUS ORDER ([facility] ONLY) 01/03/11 Laparoscopic repair of large right indirect recurrent inguinal hernia, incisional hernia in the epigastric approximately 1 cm in size 01/03/11 Dr. Doty at [facility] (no pathology) REPLACE MITRAL VALVE W/BYPASS 03/14/2013 REPLACEMENT MITRAL VALVE performed by Edgar Stout MD at OR [facility] Review of patient's allergies indicates: Allergen Reactions Pcn [Penicillins] Family History Problem Relation Age of Onset Heart Disorder Father Heart Disorder Sister Family Status Relation Status Mo Alive Fa Sis Alive Sis Alive Son Alive Son Alive Son Alive Sis (Not Specified) Social History Socioeconomic History Marital status: Spouse name: Not on file Number of children: Not on file Years of education: Not on file Highest education level: Not on file Occupational History Not on file Tobacco Use Smoking status: Never Smokeless tobacco: Never Vaping Use Vaping Use: Never used Substance and Sexual Activity Alcohol use: Yes Comment: social Drug use: No Sexual activity: Not on file Other Topics Concern Not on file Social History Narrative Not on file Social Determinants of Health Financial Resource Strain: Not on file Food Insecurity: Not on file Transportation Needs: Not on file Physical Activity: Not on file Stress: Not on file Social Connections: Not on file Intimate Partner Violence: Not on file Housing Stability: Not on file Review of Systems Constitutional: Negative for activity change, chills, fatigue, fever and unexpected weight change. HENT: Negative for postnasal drip, rhinorrhea and sinus pressure. Eyes: Negative for visual disturbance. Respiratory: Positive for shortness of breath. Cardiovascular: Positive for palpitations. Negative for chest pain and leg swelling. Gastrointestinal: Negative for blood in stool, constipation, diarrhea, nausea and vomiting. Genitourinary: Negative for dysuria and hematuria. Musculoskeletal: Positive for gait problem. Skin: Negative for rash. Neurological: Positive for dizziness, weakness and light-headedness. Negative for syncope. Objective BP 116/76 | Pulse 60 | Resp 16 Physical Exam Vitals and nursing note reviewed. Constitutional: General: He is awake. Appearance: Normal appearance. He is well-developed. HENT: Head: Normocephalic and atraumatic. Eyes: General: No scleral icterus. Extraocular Movements: Extraocular movements intact. Neck: Vascular: Normal carotid pulses. No carotid bruit or JVD. Cardiovascular: Rate and Rhythm: Normal rate and regular rhythm. Pulses: Carotid pulses are 2+ on the right side and 2+ on the left side. Radial pulses are 2+ on the right side and 2+ on the left side. Posterior tibial pulses are 2+ on the right side and 2+ on the left side. Heart sounds: S1 normal and S2 normal. Murmur heard. Pulmonary: Effort: Pulmonary effort is normal. Breath sounds: Normal breath sounds. No decreased breath sounds, wheezing, rhonchi or rales. Abdominal: Palpations: Abdomen is soft. Musculoskeletal: Cervical back: Neck supple. Right lower leg: No edema. Left lower leg: No edema. Skin: General: Skin is warm and dry. Neurological: General: No focal deficit present. Mental Status: He is alert and oriented to person, place, and time. Psychiatric: Attention and Perception: Attention normal. Mood and Affect: Mood normal. Speech: Speech normal. Behavior: Behavior normal. Behavior is cooperative. Thought Content: Thought content normal. Cognition and Memory: Cognition normal. Judgment: Judgment normal. RESULTS: Echocardiogram: 04/20/2021: The left ventricular cavity size is normal. The LV wall thickness is moderately increased (concentric). The left ventricular wall motion is normal. The qualitative LV ejection fraction is 55-59% (normal). The left atrium is severely enlarged (>48 ml/m^2,). There is an aortic valve bileaftlet disc (St. Ry type) mechanical prosthesis present. Aortic valve prosthesis stenosis is absent. The aortic valve prosthesis systolic gradients are normal for this type prosthesis. There is a mitral valve bioprosthesis present. The mitral valve prosthesis systolic gradients are normal for this type prosthesis. Mild tricuspid regurgitation is present. There is no evidence of pulmonary hypertension. Compared to prior study of 02/21/2019, there is no significant change. 02/21/2019: The left ventricular cavity size is normal. The LV wall thickness is mildly increased (concentric). The left ventricular wall motion is normal. Calculated LV ejection Fraction = 61% (bi-plane method of discs). There is an aortic valve mechanical prosthesis present. The aortic valve prosthesis systolic gradients are normal for this type prosthesis. Significant aortic valve prosthesis regurgitation is absent. There is a mitral valve bioprosthesis present. Significant mitral valve prosthesis stenosis is absent. Significant mitral valve prosthesis regurgitation is absent. The left atrium is mildly enlarged (35-41 ml/m^2). zio Patch: 08/24/2022: CONCLUSIONS: Preliminary Findings Patient had a min HR of 25 bpm, max HR of 154 bpm, and avg HR of 57 bpm. Predominant underlying rhythm was Sinus Rhythm. First Degree AV Block was present. Bundle Branch Block/IVCD was present. QRS morphology changes were present throughout recording. 2 Ventricular Tachycardia runs occurred, the run with the fastest interval lasting 6 beats with a max rate of 154 bpm, the longest lasting 10 beats with an avg rate of 111 bpm. 2 Pauses occurred, the longest lasting 3.2 secs (19 bpm). Second Degree AV Block-Mobitz I (Wenckebach) was present. Isolated SVEs were occasional (2.1%, 22982), SVE Couplets were rare (<1.0%, 130), and SVE Triplets were rare (<1.0%, 30). Isolated VEs were rare (<1.0%), VE Couplets were rare (<1.0%), and no VE Triplets were present. Ventricular Trigeminy was present. Difficulty discerning atrial activity during episode of Pause,making definitive diagnosis between Pause and possible AV block difficult to ascertain. ECGS: 02/06/2022: SB 59bpm With SA 1st degree AV block 09/30/2020: SB 53bpm 1st degree AV block Component Latest Ref Rng 11/28/2022 12/14/2022 WBC 4.00 - 10.80 K/uL 8.16 Neutrophils % 40.0 - 75.0 % 53.1 Lymphocytes % 18.0 - 42.0 % 20.8 Monocytes % 1.0 - 11.0 % 19.2 (H) Eosinophils % 0.0 - 6.0 % 6.5 (H) Basophils % 0.0 - 2.0 % 0.4 Absolute Neutrophils 1.80 - 7.70 K/uL 4.33 Absolute Lymphocytes 1.00 - 4.80 K/ul 1.70 Absolute Monocytes 0.00 - 1.10 K/uL 1.57 (H) Absolute Eosinophils 0.00 - 0.70 K/uL 0.53 Absolute Basophils 0.00 - 0.20 K/uL 0.03 BUN 6 - 20 mg/dL 25 (H) Creatinine 0.6 - 1.2 mg/dL 1.4 (H) Estimated Glomerular Filtration Rate >=60 mL/min 48 (L) Sodium 135 - 146 mmol/L 139 Potassium 3.5 - 5.1 mmol/L 4.2 Chloride 98 - 107 mmol/L 101 CO2 22 - 32 mmol/L 28 Anion Gap 7 - 15 mmol/L 10 Glucose 70 - 120 mg/dL 92 Calcium 8.4 - 10.2 mg/dL 9.3 WBC 4.00 - 10.80 K/uL 8.16 RBC 4.50 - 5.25 M/uL 4.42 HGB 14.0 - 16.8 g/dL 13.9 (L) HCT 40.0 - 48.4 % 41.8 MCV 82.0 - 99.5 fL 94.6 MCH 27.0 - 34.0 pg 31.4 MCHC 32.0 - 36.0 g/dL 33.3 RDW 11.5 - 15.5 % 13.6 PLT 140 - 400 K/uL 219 MPV 6.6 - 11.1 fL 10.5 Fingerstick INR INR 2.2 ASSESSMENT: SSS 1st degree aV block Bicuspid aortic valve status post initial aortic valve replacement in 1994 with a Saint Ry mechanical prosthesis. With re-operation in February of 2013 for flail anterior mitral valve leaflet and severe mitral insufficiency, undergoing mitral valve replacement with porcine bioprosthesis. 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 Idiopathic polyneuropathy Pulmonary HTN PLAN: -I reviewed the cardiac conduction system with the patient and his and how it relates to his condition of SSS -Discussed procedure and risks which include but are not limited to arrhythmias, strokes, heart attacks, injury to with blood vessels/lungs or chamber of the heart, , bleeding and infection withthe patient and the family; they expressed an understanding and wish to proceed. -Procedure 01/10 -Lab work and echo before procedure -Goal INR For procedure <2.3 -Continue sotalol although he has stage III CKD it is a very low dose he is on -Hold lasix morning of procedure -Continue Lipitor and spirolactone -Device and wound check 1 week after the procedure -Continue with general cardiology f/u -EP f/u PRN Jody Thayer DO I spent a total of 60 minutes coordinating, documenting, and providing care for this patient excluding time spent in the performance of separately billed services or time spent by another provider/QHP. documented in this encounter Nursing Notes * Filomena Cardenas LPN - 12/26/2022 2:59 PM EDT Examination Room: 17 Name: Musa Zhou Date of : 1935 Reason for Visit: New pt Problems/Concerns: Denies complaint, s/p aortic valve, mitral valve replacement Interim Hosp(s): denies Chest Pain/SOB: denies MyChart Discussed: Patient was instructed to not get up on the exam table until directed and assisted by their provider; patient is to remain seated in the chair/ wheelchair/ exam table for fall prevention and safety reasons. Patient is aware to have assistance to step down off exam table with personnel. documented in this encounter Plan of Treatment Upcoming Encounters Date Type Specialty Care Team Description 01/08/2023 Laboratory Laboratory [place], Lab Scenery [address] [place] [address] 01/08/2023 Anticoagulation Pharmacy Pharmacist, [facility] [address] [place] [address] Pt for a ppm on 01/10 he will get lab work on 01/08 can you help me ensure 04/25/2023 Telemedicine Neurology Arnoldo Burrell MD [address] [place], [place] [id number] 07/04/2023 Office Visit Cardiology Anatoliy Mckinney PA-C [address] [place] [address] Scheduled Orders Name Type Priority Associated Diagnoses Orde r Schedule CBC Lab STAT S/P MVR (mitral valve replacement) S/P AVR (aortic valve replacement) Pulmonary hypertension (HCC) Primary hypertension Diastolic heart failure due to valvular disease, unspecified heart failure chronicity (HCC) Pre-operative cardiovascular examination 1st degree AV block SSS (sick sinus syndrome) (HCC) Expected: 01/08/2023, Expires: 12/27/2023 PT INR Lab STAT S/P MVR (mitral valve replacement) S/P AVR (aortic valve replacement) Pulmonary hypertension (HCC) Primary hypertension Diastolic heart failure due to valvular disease, unspecified heart failure chronicity (HCC) Pre-operative cardiovascular examination 1st degree AV block SSS (sick sinus syndrome) (HCC) Expected: 01/08/2023, Expires: 12/27/2023 COMPREHENSIVE METABOLIC PANEL Lab Routine S/P MVR (mitral valve replacement) S/P AVR (aortic valve replacement) Pulmonary hypertension (HCC) Primary hypertension Diastolic heart failure due to valvular disease, unspecified heart failure chronicity (HCC) Pre-operative cardiovascular examination 1st degree AV block SSS (sick sinus syndrome) (HCC) Expected: 01/08/2023, Expires: 12/27/2023 INSERT/REPLACE PACEMAKER,ATRIAL/VENTRI CULAR Procedures Routine S/P MVR (mitral valve replacement) S/P AVR (aortic valve replacement) Pulmonary hypertension (HCC) Primary hypertension Diastolic heart failure due to valvular disease, unspecified heart failure chronicity (HCC) Pre-operative cardiovascular examination 1st degree AV block SSS (sick sinus syndrome) (HCC) Ordered: 12/26/2022 Scheduled Procedures Name Priority Associated Diagnoses Date/Ti [...] this encounter Medical Devices Implanted Type Area Manager Wellness Device Identifier Shelf Expiration Date Model / Serial / Lot Valve Ce Mitral 25mm 6625 - [id number] Implanted:Qty : 1 on 03/14/2013 at OR [facility] Tissue - Non Human N/A: Heart [email or web address] [place]AM 07/17/2016 [id number] / [id number] / documented as of this encounter Results * ECHO, COMPLETE (2D), TRANS-THORACIC (01/04/2023 4:32 PM EDT) LEFT VENTRICULAR EJECTION FRACTION 54 % [facility] 01/04/2023 3:22 PM EDT Jody Thayer DO ECHOCARDIOLOGY [facility] * EKG (12/26/2022 3:44 PM EDT) 12/26/2022 3:44 PM EDT Procedure Note Eugene Chaudhary DO - 12/26/2022 3:44 PM EDT REASON FOR STUDY: pre op CONCLUSIONS: Sinus bradycardia with 1st degree AV block Septal infarct (cited on or before 18-JUN-2017) ST & T wave abnormality, consider lateral ischemia Abnormal ECG When compared with ECG of 06-FEB-2022 14:02, Questionable change in initial forces of Anterior leads Ventricular Rate: 54 Atrial Rate: 54 MA Interval: 344 QRS Duration: 120 QT/QTc: 468/443 ms P-R-T [place]: 51 : 77 : 142 degrees Jody Owen Brandyninfa EKG [facility] C[facility] documented in this encounter Visit Diagnoses Diagnosis S/P MVR (mitral valve replacement)- Primary Heart valve replaced by other means S/P AVR (aortic valve replacement) Heart valve replaced by other means Pulmonary hypertension (HCC) Other chronic pulmonary heart diseases Primary hypertension Unspecified essential hypertension Diastolic heart failure due to valvular disease, unspecified heart failure chronicity (HCC) Pre-operative cardiovascular examination 1st degree AV block First degree atrioventricular block SSS (sick sinus syndrome) (HCC) Sinoatrial node dysfunction S/P MVR (mitral valve replacement) Heart valve replaced by other means S/P AVR (aortic valve replacement) Heart valve replaced by other means Pulmonary hypertension (HCC) Other chronic pulmonary heart diseases Primary hypertension Unspecified essential hypertension Diastolic heart failure due to valvular disease, unspecified heart failure chronicity (HCC) Pre-operative cardiovascular examination 1st degree AV block First degree atrioventricular block SSS (sick sinus syndrome) (HCC) Sinoatrial node dysfunction S/P AVR (aortic valve replacement)- Primary Heart [...] the patient have Health Care Power of Offset Printer? Yes, not currently available Care Teams Orthodontic Assistant Relationship Specialty Start Date End Date Clau Mederos MD PCP - General Internal Medicine 09/30/21 documented as of this encounter"
--- OUTSIDE RECORDS SUMMARY | 2023-04-09 13:39 | External Medical Summary | Summary of Care ---
Author Name Unknown Organization [facility] Address [address] [place] [address] Phone [phone] Care Team Providers Care Lining Sewer Name Role Phone Clau Mederos MD Primary Care Provide r Reason for Visit * Reason Onset Date Comments Forms Request 12/13/2022 [place] / En [facility] Encounter Details Date Type Department Care Team Description 12/13/2022 Telephone Neurology, [place] [address] [place] [address] Specified, [place] [facility] [address] [place] [address] Forms Request ([facility]) Allergies Active Allergy Reactions Severity Noted Date Comments Penicillins 09/15/2010 documented as of this encounter (statuses as of 01/18/2023) Medications Medication Sig Dispensed Refills Start Date [...] as of this encounter (statuses as of 01/18/2023) Active Problems Problem Noted Date Macular degeneration [...] as of this encounter (statuses as of 01/18/2023) Resolved Problems Problem Noted Date Resolved Date Chronic atrial flutter 03/07/2013 8 documented as of this encounter (statuses as of 01/18/2023) Immunizations Name Administration Dates Next Due Pneumococcal [...] Avila - 01/18/2023 3:33 PM EDT Received [facility] Plan of Care from [facility] on 01/18/23. Placed in providers bin for signature. * Telephone Encounter - ALEXANDRO Avila - 12/21/2022 10:29 AM EDT [facility] Plan of Care signed and faxed to [phone] on 12/21/22. Scanned into patients chart. * Telephone Encounter - ALEXANDRO Guallpa - 12/13/2022 9:05 AM EDT Received [facility] Plan of Care from [facility] on 12/13/22. Placed in providers bin for signature. documented in this encounter Plan of Treatment Upcoming Encounters Date Type Specialty Care Team Description 01/19/2023 Cardiac Studies Cardiology [place], [facility] [address] [place] [address] 02/19/2023 Anticoagulation Pharmacy Pharmacist1, [facility] [address] [place] [address] 04/25/2023 Telemedicine Neurology Arnoldo Burrell MD [address] [place] [address] 07/04/2023 Office Visit Cardiology Anatoliy Mckinney PA-C [address] [place] [address] Scheduled Procedures Name Priority Associated Diagnoses Date/Ti [...] this encounter Medical Devices Implanted Type Area Senior Center Manager Device Identifier Shelf Expiration Date Model / Serial / Lot Valve Ce Mitral 25mm [id number] - [id number] Implanted:Qty : 1 on 03/14/2013 at [place] [facility] Tissue - Non Human N/A: Heart [email or web address] ABRAHAM 07/17/2016 [id number] / [id number] / documented as of this encounter Advance [...] the patient have Health Care Power of Risk Lead? Yes, not currently available Care Teams Lining Sewer Relationship Specialty Start Date End Date Clau Mederos MD [address] [place] [address] PCP - General Internal Medicine 01/08/23 documented as of this encounter
--- OUTSIDE RECORDS SUMMARY | 2023-04-09 13:39 | External Medical Summary | Summary of Care ---
Author Name Unknown Organization [facility] Address [address] [place] [address] Phone [phone] Care Team Providers Care Molding Utility Worker Name Role Phone Clau Mederos MD Primary Care Provide r Encounter Details Date Type Department Care Team Description 01/10/2023 Result Scan Unspecified Department Jody Thayer, DO [address] [place], [place] [id number] <No scans attached> Allergies Active Allergy Reactions Severity Noted Date Comments Penicillins 09/15/2010 documented as of this encounter (statuses as of 01/11/2023) Medications Medication Sig Dispensed Refills Start Date [...] as of this encounter (statuses as of 01/11/2023) Active Problems Problem Noted Date Macular degeneration [...] as of this encounter (statuses as of 01/11/2023) Resolved Problems Problem Noted Date Resolved Date Chronic atrial flutter 03/07/2013 8 documented as of this encounter (statuses as of 01/11/2023) Immunizations Name Administration Dates Next Due Pneumococcal [...] Care Team Description 01/19/2023 Cardiac Studies Cardiology [facility] [address] [place] [address] 02/19/2023 Anticoagulation Pharmacy Pharmacist1, [facility] Sp [address] [place] [address] 04/25/2023 Telemedicine Neurology Arnoldo Burrell MD [address] [facility] [address] 07/04/2023 Office Visit Cardiology Anatoliy Mckinney PA-C [address] [place] [id number] Scheduled Procedures Name Priority Associated Diagnoses Date/Ti [...] this encounter Medical Devices Implanted Type Area Emergency Management Coordinator Device Identifier Shelf Expiration Date Model / Serial / Lot Valve Ce Mitral 25mm 6625 - [id number] [place]ed:[place] 1 [place] [facility] [place] - Non Human N/A: Heart [employer] 07/17/2016 [id number] / [id number] / documented as of this encounter Procedures Procedure Name Priority Date/Time Associated Diagnosis Comments RADIOLOGY SCANNED RESULT 01/10/2023 documented in this encounter Results * RADIOLOGY SCANNED RESULT (01/10/2023) 01/10/2023 Jody Thayer DO DIAGNOSTIC RADI OLOGY SERVICES documented in this encounter Advance Directives Latest [...] the patient have Health Care Power of Strength And Conditioning Coach? Yes, not currently available Care Teams Molding Utility Worker Relationship Specialty Start Date End Date Clau Mederos MD [address] [place] [address] PCP - General Internal Medicine 01/08/23 documented as of this encounter
--- OUTSIDE RECORDS SUMMARY | 2023-04-09 13:39 | External Medical Summary ---
Author Name Unknown Address Unknown Organization K09:[facility] [place] [id number] Laboratory Report Ordering Provider Test Date Status MARTÍNEZ RITCHIEBERNARD 01/08/2023 15:36:50 Final Warfarin Therapy
INR: 2 .0-3.0 conventional anticoagulation
INR: 2.5- 3.5 high intensity anticoagulation Observation Date Value Abnormality Reference (Units ) Status PT 01/08/2023 15:36:50 26.6 Above high normal 11 .6-15.2 (seconds) Final INR 01/08/2023 15:36:50 2.4 Above high normal 0. 8-1.2 Final Performing Location [facility] [place] [id number]
--- OUTSIDE RECORDS SUMMARY | 2023-04-09 13:39 | External Medical Summary | Summary of Care ---
Author Name Unknown Organization [facility] Address [address] [place] [address] Phone [phone] Care Team Providers Care Car Washer Name Role Phone Clau Mederos MD Primary Care Provide r Reason for Visit * Reason Comments Dosage Adjustment Via Phone (anticoag Cl inic) Encounter Details Date Type Department Care Team Description 01/08/2023 Anticoagulation Pharmacy, [facility] [address] [place] [address] Pharmacist1, [facility] [address] [facility] [place] [address] S/P AVR (aortic valve replacement)*; S/P MVR [...] Progress Notes * Demarco Boyer RPh - 01/08/2023 2:07 PM EDT Spoke to patient's and Musa wants to get a FS INR later today. He is at PT now and will come to the clinic when done. Demarco Gandhi RPh, CACP, CDE Clinical Pharmacist [facility]ication Therapy [facility] 01/08/2023, 2:08 PM * Farida Hogan, bullet slugs inspector - 01/08/2023 12:42 PM EDT Patient Phone Numbers Spoke with patient's to remind patient that he is due for PT/INR today. Patient is aware, states he will make it to the lab this afternoon. Will continue to monitor for result. Thank you, Farida Hogan Blast Furnace Operator [facility] ([facility]) 01/08/2023,12:43 PM * Demarco Boyer RP - 12/26/2022 3:59 PM EDT Pt for a ppm on 01/10 he will get lab work on 01/08 can you help me ensure his INR is <2.[address] Thayer documented in this encounter Plan of Treatment Upcoming Encounters Date Type Specialty Care Team Description 01/08/2023 Anticoagulation Pharmacy Pharmacist1, [facility] Sp [address] [place] [address] 04/25/2023 Telemedicine Neurology Arnoldo Burrell MD [address] [place] [address] 07/04/2023 Office Visit Cardiology Anatoliy Mckinney PA-C [address] [facility] [address] Scheduled Procedures Name Priority Associated Diagnoses Date/Ti [...] this encounter Medical Devices Implanted Type Area Director Behavioral Health Device Identifier Shelf Expiration Date Model / Serial / Lot Valve Ce Mitral 25mm 6625 - [id number] Implanted:Q[place] : 1 [place] [facility] [place] N/A: Heart [employer] 07/17/2016 [id number] / [id number] / documented as of this encounter Visit Diagnoses Diagnosis S/P AVR [...] the patient have Health Care Power of Home Child Care Provider? Yes, not currently available Care Teams Car Washer Relationship Specialty Start Date End Date Clau Mederos MD PCP - General Internal Medicine 09/30/21 documented as of this encounter
--- OUTSIDE RECORDS SUMMARY | 2023-04-09 13:39 | External Medical Summary | Summary of Care ---
Author Name Unknown Organization [facility] Address [address] [place] [address] Phone [phone] Care Team Providers Care Nurses Educator Name Role Phone Clau Mederos MD Primary Care Provide r Reason for Visit * Reason Onset Date Comments Procedure 01/05/2023 Test Results 01/05/2023 Encounter Details Date Type Department Care Team Description 01/05/2023 Telephone Cardiology Jose A [facility] [address] [facility] [place] [address] Jody Thayer DO [address] [facility] [place] [id number] Procedure; Test Results Allergies Active Allergy Reactions Severity Noted Date Comments Penicillins 09/15/2010 documented as of this encounter (statuses as of 01/05/2023) Medications Medication Sig Dispensed Refills Start Date [...] as of this encounter (statuses as of 01/05/2023) Active Problems Problem Noted Date Macular degeneration [...] as of this encounter (statuses as of 01/05/2023) Resolved Problems Problem Noted Date Resolved Date Chronic atrial flutter 03/07/2013 8 documented as of this encounter (statuses as of 01/05/2023) Immunizations Name Administration Dates Next Due Pneumococcal [...] encounter Miscellaneous Notes * Telephone Encounter - Giovanny Nova RN - 01/05/2023 12:36 PM EDT Called and spoke to the patient and his and reviewed the message with them concerning the questions they had earlier. * Telephone Encounter - JUAN Curry - 01/05/2023 12:26 PM EDT He can use his walker, no problems there . We will see how the case goes on the day of admission is always an option but will need to make further recommendations after the procedures completed. Thank You Dr. Hastings and JUAN Mills * Telephone Encounter - Giovanny Nova RN - 01/05/2023 11:23 AM EDT Called and spoke tot he patient's and she had several questions. !). Her has myopathy and sues the walker for short distances. Will he be able to use the walker to get back and forth to the bathroom? 2). Any chance he can stay over night at the hospital to help her. She has a dislocated shoulder and her arm is in a sling. Please advise * Telephone Encounter - ALEXANDRO Hernandez - 01/05/2023 10:31 AM EDT Good morning, Patient's Amee calling for test results and has questions about procedure on Sun. Please advise. Thanks documented in this encounter Plan of Treatment Upcoming Encounters Date Type Specialty Care Team Description 01/08/2023 Laboratory Laboratory [place], Lab Scenery [address] [facility] [place] [address] 01/08/2023 Anticoagulation Pharmacy Pharmacist1, [facility] Sp [address] [facility] [place] [address] Pt for a ppm on 01/10 he will get lab work on 01/08 can you help me ensure 04/25/2023 Telemedicine Neurology Arnoldo Burrell MD [address] [facility] [place] [address] 07/04/2023 Office Visit Cardiology Anatoliy Mckinney PA-C [address] [place] [address] Scheduled Procedures Name Priority Associated Diagnoses Date/Ti [...] this encounter Medical Devices Implanted Type Area Advice Clerk Device Identifier Shelf Expiration Date Model / Serial / Lot Valve Ce Mitral 25mm 6625 - [id number] Implanted:Qty : 1 on 03/14/2013 at [place] [facility] [place] Tissue - Non Human N/A: Heart [employer] 07/17/2016 [id number] / [id number] / documented as of this encounter Advance [...] the patient have Health Care Power of Associate Professor Of English? Yes, not currently available Care Teams Nurses Educator Relationship Specialty Start Date End Date Clau Mederos MD PCP - General Internal Medicine 09/30/21 documented as of this encounter
--- OUTSIDE RECORDS SUMMARY | 2023-04-09 13:39 | External Medical Summary | Summary of Care ---
Author Name Unknown Organization [facility] Address [address] [place] [address] Phone [phone] Care Team Providers Care Tree Farmer Name Role Phone Clau Mederos MD Primary Care Provide r Reason for Visit * Reason Onset Date Comments Procedure 01/05/2023 Test Results 01/05/2023 Encounter Details Date Type Department Care Team Description 01/05/2023 Telephone Cardiology Jose A Chicas [address] [facility] [place] [address] Jody Thayer DO [address] [facility] [place] [id number] Procedure; Test Results Allergies Active Allergy Reactions [...] 01/05/2023 12:36 PM EDT Called and spoke tot he patient and his and reviewed the message [...] 01/08/2023 Laboratory Laboratory [place], Lab Scenery 200 [facility] [place] [address] 01/08/2023 Anticoagulation Pharmacy Pharmacist1, [facility] Sp [address] [facility] [place] [address] Pt for a ppm on 01/10 he will get lab work on 01/08 can you help me ensure 04/25/2023 Telemedicine Neurology Arnoldo Burrell MD [address] [facility] [place] [address] 07/04/2023 Office Visit Cardiology Anatoliy Mckinney PA-C [address] [facility] [place] [address] Scheduled Procedures Name Priority Associated [...] this encounter Medical Devices Implanted Type Area Animal Scientist Device Identifier Shelf Expiration Date Model / Serial / Lot Valve Ce Mitral 25mm 6625 - [id number] Implanted:Qty : 1 on 03[place]14/2013 [place] [facility] [place] - Non Human N/A: Heart [employer] 07/17/2016 [id number] / [id number] / documented as of this encounter Advance [...] the patient have Health Care Power of Rn Clinical Resource? Yes, not currently available Care Teams Tree Farmer Relationship Specialty Start Date End Date Clau Mederos MD PCP - General Internal Medicine 09/30/21 documented as of this encounter
--- OUTSIDE RECORDS SUMMARY | 2023-04-09 13:39 | External Medical Summary | Summary of Care ---
Author Name Unknown Organization [facility] Address [address] [place] [address] Phone [phone] Care Team Providers Care Industry Consultant Name Role Phone Clau Mederos MD Primary Care Provide r Reason for Visit * Reason Onset Date Comments Appointment 01/02/2023 Encounter Details Date Type Department Care Team Description 01/02/2023 Telephone Pharmacy Call Center [address] [place] [address] Pharmacist1, [facility] Sp [address] [place] [address] Appointment Allergies Active Allergy Reactions Severity Noted Date Comments Penicillins 09/15/2010 documented as of this encounter (statuses as of 01/02/2023) Medications Medication Sig Dispensed Refills Start Date [...] as of this encounter (statuses as of 01/02/2023) Active Problems Problem Noted Date Macular degeneration [...] as of this encounter (statuses as of 01/02/2023) Resolved Problems Problem Noted Date Resolved Date Chronic atrial flutter 03/07/2013 8 documented as of this encounter (statuses as of 01/02/2023) Immunizations Name Administration Dates Next Due Pneumococcal [...] encounter Miscellaneous Notes * Telephone Encounter - Jos Waddell [facility] - 01/02/2023 4:07 PM EDT Patient to have labs drawn for cardology on the . Patient okay to have INR drawn at this time as well. Appt for inperson fingerstick cancelled for the , will schedule next appointment when results are received on the . Jos Waddell PharmD, [facility] Clinical Pharmacist 01/02/2023, 4:08 PM * Telephone Encounter - RAVEN Morillo Tech - 01/02/2023 3:46 PM EDT Caller's name: Alicia Dillard call back number(OFFICE NUMBER FOR ): [phone] Reason for call: Pt's multimedia programmer requesting a return call to discuss pt's upcoming PT/INR appt. Thank you, Bee Cardoso Work Adjustment Instructor [facility] Services ([facility]PS) (formerly Telepharmacy) 01/02/2023,3:54 PM documented in this encounter Plan of Treatment Upcoming Encounters Date Type Specialty Care Team Description 01/04/2023 Cardiac Studies Cardiac Studies 01/08/2023 Laboratory Laboratory Park, Lab Scenery [address] [place] [address] 01/08/2023 Anticoagulation Pharmacy Pharmacist1, [facility] Sp [address] [place] [address] Pt for a ppm on 01/10 he will get lab work on 01/08 can you help me ensure 04/25/2023 Telemedicine Neurology Arnoldo Burrell MD [address] [place] [address] 07/04/2023 Office Visit Cardiology Anatoliy Mckinney PA-C [address] [place] [address] Scheduled Procedures Name Priority Associated Diagnoses Date/Ti [...] this encounter Medical Devices Implanted Type Area Business Support Associate Device Identifier Shelf Expiration Date Model / Serial / Lot Valve Ce Mitral 25mm 6625 - [id number] Implanted:Qty : 1 on 03/14/2013 [place] [facility] [place] - Non Human N/A: Heart [employer] 07/17/2016 [id number] / [id number] / documented as of this encounter Advance [...] the patient have Health Care Power of Refrigerating Machine Operator? Yes, not currently available Care Teams Industry Consultant Relationship Specialty Start Date End Date Clau Mederos MD PCP - General Internal Medicine 09/30/21 documented as of this encounter
--- OUTSIDE RECORDS SUMMARY | 2023-04-09 13:39 | External Medical Summary ---
Author Name Unknown Address Unknown Organization K09[facility] [place] [address] Laboratory Report Ordering Provider Test Date Status SONJA MELCHOR V 01/08/2023 15:27:05 Final Therapeutic ranges for non-o perative patients:
Prophylaxsis/treatment of DVT: (Range:2.0-3.0)
Treatment of pulmonary embolism:(Range:2.0-3.0)
Prevention of systemic embolism from:
-tissue heart valves
-acute myocardial infarction
-valvular heart disease
-atrial fibrillation
(Range: 2.0-3.0)
Mechanical prosthetic valves: (Range: 2.5-3.5) Observation Date Value Abnormality Reference (Units ) Status INR in Capillary blood by Coagulation assay 01/08/2023 15:27:05 2.8 (INR) Final Performing Location [facility] [place] [address]
--- OUTSIDE RECORDS SUMMARY | 2023-04-09 13:39 | External Medical Summary | Summary of Care ---
Author Name Unknown Organization [facility] Address [address] [place] [address] Phone [phone] Care Team Providers Care Renewable Energy Broker Name Role Phone Clau Mederos MD Primary Care Provide r Reason for Visit * Reason Onset Date Comments Forms Request 12/13/2022 [place] / En ergy Rehab Encounter Details Date Type Department Care Team Description 12/13/2022 Telephone Neurology, [place] [address] [place] [address] Specified, [place] No Resource [address] [place] [address] Forms Request ([facility] / Energy [facility]) Allergies Active Allergy Reactions Severity Noted Date Comments Penicillins 09/15/2010 documented as of this encounter (statuses as of 01/19/2023) Medications Medication Sig Dispensed Refills Start Date [...] as of this encounter (statuses as of 01/19/2023) Active Problems Problem Noted Date Macular degeneration [...] as of this encounter (statuses as of 01/19/2023) Resolved Problems Problem Noted Date Resolved Date Chronic atrial flutter 03/07/2013 8 documented as of this encounter (statuses as of 01/19/2023) Immunizations Name Administration Dates Next Due Pneumococcal [...] Plan of Care signed and faxed to [phone] on 01/19/23. Scanned into patients chart. * Telephone Encounter - ALEXANDRO Avila - 01/18/2023 3:33 PM EDT Received Energy Rehab Plan of Care from [facility] on 01/18/23. Placed in providers bin for signature. * Telephone Encounter - ALEXANDRO Avila - 12/21/2022 10:29 AM EDT Energy Rehab Plan of Care signed and faxed to [phone] on 12/21/22. Scanned into patients chart. * Telephone Encounter - ALEXANDRO Guallpa - 12/13/2022 9:05 AM EDT Received Energey Rehab Plan of Care from [facility] on 12/13/22. Placed in providers bin for signature. documented in this encounter Plan of Treatment Upcoming Encounters Date Type Specialty Care Team Description 02/19/2023 Anticoagulation Pharmacy Pharmacist1, [facility] Sp [address] [place] [address] 03/16/2023 Cardiac Studies Cardiology [facility], [facility] [address] [place] [address] 04/25/2023 Telemedicine Neurology Arnoldo Burrell MD [address] [place] [address] 07/04/2023 Office Visit Cardiology Anatoliy Mckinney, [place] [address] [place] [address] Scheduled Procedures Name Priority Associated Diagnoses Date/Ti [...] this encounter Medical Devices Implanted Type Area Enterprise Architect Manager Device Identifier Shelf Expiration Date Model / Serial / Lot Valve Ce Mitral 25mm 6625 - [id number] Implanted:Qty : 1 on 03[place]14/2013 [place] [facility] [place] - Non Human N/A: Heart Tabl [employer] ABRAHAM 07/17/2016 [id number] / [id number] / documented as of this encounter Advance [...] the patient have Health Care Power of Acid Changer? Yes, not currently available Care Teams Renewable Energy Broker Relationship Specialty Start Date End Date Clau Mederos MD [address] [place] [address] PCP - General Internal Medicine 01/08/23 documented as of this encounter
--- OUTSIDE RECORDS SUMMARY | 2023-04-09 13:39 | External Medical Summary ---
Author Name Unknown Address Unknown Organization [facility]09[facility] [place] [address] Laboratory Report Ordering Provider Test Date Status MYESHA RITCHIE 01/08/2023 15:36:50 Final Observation Date Value Abnormality Reference (Units ) Status WBC, Total 01/08/2023 15:36:50 7.30 4.00-10.8 0 (K/uL) Final RBC 01/08/2023 15:36:50 4.42 4.50-5.25 (M/uL) Final Hemoglobin 01/08/2023 15:36:50 14.0 14.0-16.8 (g/dL) Final HCT 01/08/2023 15:36:50 42.2 40.0-48.4 (%) Final MCV 01/08/2023 15:36:50 95.5 82.0-99.5 (fL) Final MCH 01/08/2023 15:36:50 31.7 27.0-34.0 (pg) Final MCHC 01/08/2023 15:36:50 33.2 32.0-36.0 (g/dL) Final RDW 01/08/2023 15:36:50 13.8 11.5-15.5 (%) Final Platelets 01/08/2023 15:36:50 225 140-400 (K /uL) Final MPV 01/08/2023 15:36:50 10.5 6.6-11.1 ( fL) Final Performing Location [facility] [place] [address]
--- OUTSIDE RECORDS SUMMARY | 2023-04-09 13:39 | External Medical Summary | Summary of Care ---
Author Name Unknown Organization [facility] Address [address] [place] [address] Phone [phone] Care Team Providers Care Financial Service Rep Name Role Phone Clau Mederos MD Primary Care Provide r Reason for Visit * Reason Comments Pacemaker Clinic Encounter Details Date Type Department Care Team Description 01/19/2023 Cardiac Studies Cardiology, [facility] [address] [place] [address] [place], Pacer Clinic [facility] [address] [place] [address] SSS (sick sinus syndrome) ([facility])*; Cardiac pacemaker in situ Allergies Active Allergy Reactions Severity Noted Date [...] as of this encounter Progress Notes * Camelia Millard RN - 01/19/2023 1:48 PM EDT documented in this encounter Nursing Notes * Camelia Millard RN - 01/19/2023 1:36 PM EDT In office device / wound check performed. Providers see scanned report in scans tab. Patient teaching about new devices and device follow explained. Do not raise your elbow on the incision side above shoulder level in a repetitive manner. This gives the device lead wires time to attach securely inside your heart. Cleanse area with antibacterial soap and pat dry Advoidance of dental procedures for 6 months Carry an ID card that contains information about your pacemaker. You can show this card if your pacemaker sets off a metal detector. You should also show it to avoid screening with a hand-held security wand. Keep your cell phone away from your pacemaker. Dont carry the phone in your shirt pocket, even when its turned off. Avoid strong magnets. Examples are those used in MRIs or in hand-held security wands. Avoid strong electrical buckley. Examples are those made by radio transmitting towers, ham radios, and heavy-duty electrical equipment. Avoid leaning over the open nelson of a running car. A running engine creates an electrical field. Return in 6 to 8 weeks for chronic threshold testing. Tech: Valentina Estrada documented in this encounter Plan of Treatment Upcoming Encounters Date Type Specialty Care Team Description 02/19/2023 Anticoagulation Pharmacy Pharmacist1, [facility] [address] [place] [address] 03/16/2023 Cardiac Studies Cardiology [place], Pacer Clinic [facility] [address] [facility] [address] 04/25/2023 Telemedicine Neurology Arnoldo Burrell MD [address] [place] [address] 07/04/2023 Office Visit Cardiology Anatoliy Mckinney PA-C [address] [facility] [place] [address] Scheduled Orders Name Type Priority Associated Diagnoses Orde r Schedule POSTOP F-UP VISIT IN GLOBAL Procedures Routine SSS (sick sinus syndrome) (HCC) Cardiac pacemaker in situ Ordered: 01/19/2023 Scheduled Procedures Name Priority Associated Diagnoses Date/Ti [...] this encounter Medical Devices Implanted Type Area Machinist 2Nd Shift Device Identifier Shelf Expiration Date Model / Serial / Lot Valve Ce Mitral 25mm 6625 - [id number] Implanted:Qty : 1 on 03/14/2013 at [place] [facility] [place] Tissue - Non Human N/A: Heart [employer] 07/17/2016 [id number] / [id number] / documented as of this encounter Visit Diagnoses Diagnosis SSS (sick sinus syndrome) (HCC)- Primary Sinoatrial node dysfunction Cardiac pacemaker in situ documented in this encounter Advance Directives Latest [...] the patient have Health Care Power of Oven Worker? Yes, not currently available Care Teams Financial Service Rep Relationship Specialty Start Date End Date Clau Mederos MD [address] [place] [address] PCP - General Internal Medicine 01/08/23 documented as of this encounter
--- OUTSIDE RECORDS SUMMARY | 2023-04-09 13:39 | External Medical Summary | Summary of Care ---
Author Name Unknown Organization [facility] Address [address] [place] [address] Phone [phone] Care Team Providers Care Patient Safety Sitter Name Role Phone Clau Mederos MD Primary Care Provide r Reason for Visit * Reason Comments Outpatient Testing Encounter Details Date Type Department Care Team Description 01/08/2023 Laboratory Laboratory [facility] [place] [facility] [address] [place] [id number] [place], Lab Scenery [address] [place] [address] S/P MVR (mitral valve replacement); S/P AVR (aortic valve replacement); Pulmonary hypertension ([facility]); Primary hypertension; Diastolic heart failure due to valvular disease, unspecified heart failure chronicity ([facility]); Pre-operative cardiovascular examination; 1st degree AV block; SSS (sick sinus syndrome) ([facility]) Allergies Active Allergy Reactions Severity Noted Date [...] Care Team Description 01/08/2023 Anticoagulation Pharmacy Pharmacist1, [facility] [address] [place] [address] S/P AVR (aortic valve replacement)*; S/P MVR (mitral valve replacement) 01/19/2023 Cardiac Studies Cardiology [place], [facility] [address] [place] [address] 02/19/2023 Anticoagulation Pharmacy Pharmacist1, [facility] [address] [place] [address] 04/25/2023 Telemedicine Neurology Arnoldo Burrell MD [address] [place] [address] 07/04/2023 Office Visit Cardiology Anatoliy Mckinney PA-C [address] [place] [address] Pending Results Name Type Priority Associated Diagnoses Date /Time PT INR Lab STAT S/P MVR (mitral valve replacement) S/P AVR (aortic valve replacement) Pulmonary hypertension (HCC) Primary hypertension Diastolic heart failure due to valvular disease, unspecified heart failure chronicity (HCC) Pre-operative cardiovascular examination 1st degree AV block SSS (sick sinus syndrome) (HCC) 01/08/2023 3:36 PM EDT COMPREHENSIVE METABOLIC PANEL Lab Routine S/P MVR (mitral valve replacement) S/P AVR (aortic valve replacement) Pulmonary hypertension (HCC) Primary hypertension Diastolic heart failure due to valvular disease, unspecified heart failure chronicity (HCC) Pre-operative cardiovascular examination 1st degree AV block SSS (sick sinus syndrome) (HCC) 01/08/2023 3:36 PM EDT Scheduled Procedures Name Priority Associated Diagnoses Date/Ti [...] this encounter Medical Devices Implanted Type Area Truck Car And Bus Cleaner Device Identifier Shelf Expiration Date Model / Serial / Lot Valve Ce Mitral 25mm 6625 - [id number] Implanted:Qty : 1 on 03/14/2013 at [place] [facility] [place] Tissue - Non Human N/A: Heart [employer] 07/17/2016 [id number] / [id number] / documented as of this encounter Procedures Procedure Name Priority Date/Time Associated Diagnosis Comments CBC STAT 01/08/2023 3:36 PM EDT S/P MVR (mitral valve replacement) S/P AVR (aortic valve replacement) Pulmonary hypertension (HCC) Primary hypertension Diastolic heart failure due to valvular disease, unspecified heart failure chronicity (HCC) Pre-operative cardiovascular examination 1st degree AV block SSS (sick sinus syndrome) (HCC) documented in this encounter Results * CBC (01/08/2023 3:36 PM EDT) WBC 7.30 4.00 - 10.80 K/uL 01/08/2023 3:49 PM EDT [facility] 56 RBC 4.42 4.50 - 5.25 M/uL 01/08/2023 3:49 PM EDT [facility] 56 HGB 14.0 14.0 - 16.8 g/dL 01/08/2023 3:49 PM EDT [facility] 56- HCT 42.2 40.0 - 48.4 % 01/08/2023 3:49 PM EDT [facility] 56- MCV 95.5 82.0 - 99.5 fL 01/08/2023 3:49 PM EDT [facility] 56- MCH 31.7 27.0 - 34.0 pg 01/08/2023 3:49 PM EDT [facility] 56 MCHC 33.2 32.0 - 36.0 g/dL 01/08/2023 3:49 PM EDT [facility] 56- RDW 13.8 11.5 - 15.5 % 01/08/2023 3:49 PM EDT [facility] 56- PLT 225 140 - 400 K/uL 01/08/2023 3:49 PM EDT [facility] 56- MPV 10.5 6.6 - 11.1 fL 01/08/2023 3:49 PM EDT [facility] 56 Blood Venous blood specimen / Unknown Venipuncture / Unknown 01/08/2023 3:36 PM EDT 01/08/2023 3:36 PM EDT Jody Thayer DO LAB BLOOD ORDER [facility] [address] [place] [address] documented in this encounter Visit Diagnoses Diagnosis S/P MVR (mitral valve replacement) Heart valve replaced by other means S/P AVR (aortic valve replacement) Heart valve replaced by other means Pulmonary hypertension (HCC) Other chronic pulmonary heart diseases Primary hypertension Unspecified essential hypertension Diastolic heart failure due to valvular disease, unspecified heart failure chronicity (HCC) Pre-operative cardiovascular examination 1st degree AV block First degree atrioventricular block SSS (sick sinus syndrome) ([facility]) Sinoatrial node dysfunction S/P AVR (aortic valve [...] the patient have Health Care Power of Computer Language Coder? Yes, not currently available Care Teams Patient Safety Sitter Relationship Specialty Start Date End Date Calu Mederos MD [address] [facility] [place] [address] PCP - General Internal Medicine 01/08/23 documented as of this encounter
--- OUTSIDE RECORDS SUMMARY | 2023-04-09 13:40 | External Medical Summary | Summary of Care ---
Author Name Unknown Organization [facility] Address [address] [place] [address] Phone [phone] Care Team Providers Care Solar Project Coordination Specialist Name Role Phone Clau Mederos MD Primary Care Provide r Reason for Visit * Reason Onset Date Comments Forms Request 10/06/2022 [facility] Plan of Care Encounter Details Date Type Department Care Team Description 10/06/2022 Telephone Neurology, [place] [address] [place] [address] Arnoldo Burrell MD [address] [place] [address] Forms Request ([facility] ... Allergies Active Allergy Reactions Severity Noted Date Comments Penicillins 09/15/2010 documented as of this encounter (statuses as of 11/28/2022) Medications Medication Sig Dispensed Refills Start Date End Date Status Multiple Vitamins-Mineral s (OCUVITE ADULT 50+) Capsule Take 1 Capsule by mouth in the morning. 0 Active Diclofenac Sodium 1 % gel USW 1 GRAM EXTERNALLY 4 TIMES DAILY 0 8 Active Spironolactone 25 MG Oral Tablet (Aldactone) Take 0.5 Tabs by mouth daily. 15 Tab 11 1 Active Additional Information Patient not taking.Reported on 06/07/2022 One-A-Day Mens 50+ Oral Tablet Take by mouth 1 Tablet daily . 0 Active Potassium Chloride ER 20 MEQ Oral Tablet Extended ReleaseIndicatio ns:Chronic 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 (HCC) Take by mouth 1 Tablet in the morning. 90 Tablet 3 2 Active Sotalol HCl 80 MG Oral Tablet (Betapace) Take by mouth 0.5 Tablets in the morning. 45 Tablet 3 2 Active Atorvastatin Calcium 20 MG Oral Tablet (Lipitor) Take by mouth 1 Tablet in the morning. 90 Tablet 3 2 Active PreserVision AREDS 2+Multi Vit Oral Capsule Take by mouth. 2 tablets daily 0 Active Vitamin C 500 MG Oral Capsule Take by mouth. 0 Active Vitamin B-12 100 MCG Oral Tablet (vitamin B-12) Take 1 Tablet by mouth in the morning. 0 Active Furosemide 40 MG Oral Tablet (Lasix)Indicatio ns:Chronic 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 (HCC),S/P AVR (aortic valve replacement),Par oxysmal atrial fibrillation (HCC),HTN, goal below 140/90,S/P MVR (mitral valve replacement),Dys lipidemia, goal LDL below 70 Take 1 Tablet by mouth in the morning. 90 Tablet 3 3 Active Warfarin Sodium 2 MG Oral Tablet 6 mg every Mon, Fri; 4 mg all other days 200 Tablet 3 2 11/14/19 23 Discontinued Baclofen 10 MG Oral Tablet (Lioresal) Take one to two tablets twice a day for spasticity 120 Tablet 5 3 10/13/19 23 Discontinued(Pat ient preference/disco ntinuation) documented as of this encounter (statuses as of 11/28/2022) Active Problems Problem Noted Date Macular degeneration [...] as of this encounter (statuses as of 11/28/2022) Resolved Problems Problem Noted Date Resolved Date Chronic atrial flutter 03/07/2013 8 documented as of this encounter (statuses as of 11/28/2022) Immunizations Name Administration Dates Next Due Pneumococcal [...] * Telephone Encounter - ALEXANDRO Avila - 11/15/2022 3:57 PM EDT [facility] Plan of Care signed and faxed to [phone] on 11/28/22. Scanned into patients chart. * Telephone Encounter - ALEXANDRO Avila - 11/08/2022 2:45 PM EDT Received [facility] Plan of Care from [facility] on 11/07/22. Placed in providers bin for signature. * Telephone Encounter - ALEXANDRO Avila - 10/17/2022 4:18 PM EDT [facility] Plan of Care signed and faxed to [phone] on 10/17/22. Scanned into patients chart. * Telephone Encounter - ALEXANDRO Avila - 10/06/2022 2:38 PM EDT Received [facility] Plan of Care from [facility] on 10/06/22. Placed in providers bin for signature. documented in this encounter Plan of Treatment Upcoming Encounters Date Type Specialty Care Team Description 12/14/2022 Office Visit Cardiology Toni Painter MD [address] [place] [address] 01/09/2023 Anticoagulation Pharmacy Pharmacist1, [facility] [address] [place] [address] 04/25/2023 Telemedicine Neurology Arnoldo Burrell MD [address] [place] [address] Scheduled Procedures Name Priority Associated Diagnoses Date/Ti [...] this encounter Medical Devices Implanted Type Area Bobbin Winder Device Identifier Shelf Expiration Date Model / Serial / Lot Valve Ce Mitral 25mm 6625 - [id number] Implanted:Qty : 1 on 03/14/2013 [place] [facility] [place] - Non Human N/A: Heart [employer] 07/17/2016 [id number] / [id number] / documented as of this encounter Advance [...] the patient have Health Care Power of Repairer Auto Clocks? Yes, not currently available Care Teams Solar Project Coordination Specialist Relationship Specialty Start Date End Date Clau Mederos MD PCP - General Internal Medicine 09/30/21 documented as of this encounter
--- OUTSIDE RECORDS SUMMARY | 2023-04-09 13:40 | External Medical Summary | Summary of Care ---
Author Name Unknown Organization [facility] Address [address] [place] [address] Phone [phone] Care Team Providers Care Track Grinder Operator Name Role Phone Clau Mederos MD Primary Care Provide r Reason for Visit * Reason Onset Date Comments Test Results 12/15/2022 Encounter Details Date Type Department Care Team Description 12/15/2022 Telephone [facility]iology, [facility] [address] [facility] [address] Test Results Allergies Active Allergy Reactions Severity Noted Date Comments Penicillins 09/15/2010 documented as of this encounter (statuses as of 12/15/2022) Medications Medication Sig Dispensed Refills Start Date [...] mouth. 0 Active B Complex-C Oral Tablet (Therapeutic B Complex w/C) Take 1 Tablet by mouth in the morning. 0 Active Spironolactone 25 MG Oral Tablet (Aldactone) Take 0.5 Tablets by mouth in the morning. 50 Tablet 3 12/14/2022 Active documented as of this encounter (statuses as of 12/15/2022) Active Problems Problem Noted Date Macular degeneration [...] as of this encounter (statuses as of 12/15/2022) Resolved Problems Problem Noted Date Resolved Date Chronic atrial flutter 03/07/2013 8 documented as of this encounter (statuses as of 12/15/2022) Immunizations Name Administration Dates Next Due Pneumococcal [...] encounter Miscellaneous Notes * Telephone Encounter - Kayli Kaiser CMA - 12/15/2022 2:47 PM EDT Pt aware of results. * Telephone Encounter - Kayli Kaiser CMA - 12/15/2022 2:47 PM EDT ----- Message from Toni Painter MD sent at 12/14/2022 6:11 PM EDT ----- CBC and BMP are stable documented in this encounter Plan of Treatment Upcoming Encounters Date Type Specialty Care Team Description 12/26/2022 Office Visit Cardiology Jeovany Jodyesteban Owen, DO [address] [facility] [place] [address] 01/09/2023 Anticoagulation Pharmacy Pharmacist1, [facility] [address] [place] [address] 04/25/2023 Telemedicine Neurology Arnoldo Burrell MD [address] [place] [address] 07/04/2023 Office Visit Cardiology Anatoliy Mckinney PA-C [address] [place] [address] Scheduled Procedures Name Priority Associated Diagnoses [...] this encounter Medical Devices Implanted Type Area Global Regulatory Affairs Manager Device Identifier Shelf Expiration Date Model / Serial / Lot Valve Ce Mitral 25mm 6659 - [id number] Implanted:Qty : 1 on 03/14/2013 at [place] [facility] [place] Tissue - Non Human N/A: Heart [employer] ABRAHAM 07/17/2016 [id number] / [id number] / documented as of this encounter Advance [...] the patient have Health Care Power of Bacteriologist Dairy? Yes, not currently available Care Teams Track Grinder Operator Relationship Specialty Start Date End Date Clau Mederos MD PCP - General Internal Medicine 09/30/21 documented as of this encounter
--- OUTSIDE RECORDS SUMMARY | 2023-04-09 13:40 | External Medical Summary ---
Author Name Unknown Address Unknown Organization [id number]:[facility] [address] [place] [address] Laboratory Report Ordering Provider Test Date Status WALLACE JACKMAN 12/14/2022 15:31:04 Final Observation Date Value Abnormality Reference (Units ) Status WBC, Total 12/14/2022 15:31:04 8.16 4.00-10.8 0 (K/uL) Final RBC 12/14/2022 15:31:04 4.42 4.50-5.25 (M/uL) Final Hemoglobin 12/14/2022 15:31:04 13.9 Below low normal 14 .0-16.8 (g/dL) Final HCT 12/14/2022 15:31:04 41.8 40.0-48.4 (%) Final MCV 12/14/2022 15:31:04 94.6 82.0-99.5 (fL) Final MCH 12/14/2022 15:31:04 31.4 27.0-34.0 (pg) Final MCHC 12/14/2022 15:31:04 33.3 32.0-36.0 (g/dL) Final RDW 12/14/2022 15:31:04 13.6 11.5-15.5 (%) Final Platelets 12/14/2022 15:31:04 219 140-400 (K /uL) Final MPV 12/14/2022 15:31:04 10.5 6.6-11.1 ( fL) Final Performing Location [facility] [address] [place] [address]
--- OUTSIDE RECORDS SUMMARY | 2023-04-09 13:40 | External Medical Summary ---
Author Name Unknown Address Unknown Organization [id number]:[facility] [address] [place] [address] Laboratory Report Ordering Provider Test Date Status WALLACE JACKMAN 12/14/2022 15:31:04 Final Observation Date Value Abnormality Reference (Units ) Status SYNC LEUKOCYTES IN BLOOD BY AUTOMATED COUNT 12/14/2022 15:31:04 8.16 4.00-10.80 (K/uL) Final Segs 12/14/2022 15:31:04 53.1 40.0-75.0 (%) Final Lymphs % 12/14/2022 15:31:04 20.8 18.0-42.0 (%) Final Monos 12/14/2022 15:31:04 19.2 Above high normal 1.0-11.0 (%) Final Eosinophils 12/14/2022 15:31:04 6.5 Above high normal 0.0-6.0 (%) Final Basos 12/14/2022 15:31:04 0.4 0.0-2.0 (%) Final Absolute Segs 12/14/2022 15:31:04 4.33 1.80-7.70 (K/uL) Final Lymphs, absolute 12/14/2022 15:31:04 1.70 1.00-4.80 (K/ul) Final Monos, Abs 12/14/2022 15:31:04 1.57 Above high normal 0.00-1.10 (K/uL) Final Eos, Abs 12/14/2022 15:31:04 0.53 0.00-0.70 (K/uL) Final Basos, Abs 12/14/2022 15:31:04 0.03 0.00-0.20 (K/uL) Final Performing Location [facility] - [address] [place] [address]
--- OUTSIDE RECORDS SUMMARY | 2023-04-09 13:40 | External Medical Summary ---
Author Name Unknown Address Unknown Organization K09:[facility] [place] [address] Laboratory Report Ordering Provider Test Date Status SONJA MELCHOR V 11/28/2022 14:02:53 Final Therapeutic ranges for non-o perative patients:
Prophylaxsis/treatment of DVT: (Range:2.0-3.0)
Treatment of pulmonary embolism:(Range:2.0-3.0)
Prevention of systemic embolism from:
-tissue heart valves
-acute myocardial infarction
-valvular heart disease
-atrial fibrillation
(Range: 2.0-3.0)
Mechanical prosthetic valves: (Range: 2.5-3.5) Observation Date Value Abnormality Reference (Units ) Status INR in Capillary blood by Coagulation assay 11/28/2022 14:02:53 2.2 (INR) Final Performing Location [facility] [place] [address]
--- OUTSIDE RECORDS SUMMARY | 2023-04-09 13:40 | External Medical Summary | Summary of Care ---
Author Name Unknown Organization [facility] Address [address] [place] [address] Phone [phone] Care Team Providers Care Duplicating Machine Servicer Name Role Phone Clau Mederos MD Primary Care Provide r Reason for Visit * Reason Comments Dosage Adjustment In Person (Anticoag Cl inic) Encounter Details Date Type Department Care Team Description 11/28/2022 Anticoagulation Pharmacy, [facility] [address] [facility] [place] [address] Pharmacist1, [facility] 200 [facility] [place] [address] S/P AVR (aortic valve replacement)*; S/P MVR (mitral valve replacement); 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 15 Tab 11 09/30/2020 Active Additional Information Patient not taking.Reported on 06/07/2022 One-A-Day Mens 50+ Oral Tablet Take by mouth 1 Tablet daily . 0 Active Potassium Chloride ER 20 MEQ Oral Tablet Extended ReleaseIndications: Chronic 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 (HCC) Take by mouth 1 Tablet in the morning. 90 Tablet 3 02/06/2022 Active Sotalol HCl 80 MG Oral Tablet [...] 0 Active Furosemide 40 MG Oral Tablet (Lasix)Indications: Chronic 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 (HCC),S/P AVR (aortic valve replacement),Paroxy smal atrial fibrillation (HCC),HTN, goal below 140/90,S/P MVR (mitral valve replacement),Dyslip idemia, goal LDL below 70 Take 1 Tablet by mouth in the morning. 90 Tablet 3 07/20/2022 Active Warfarin Sodium 2 MG Oral Tablet (Coumadin)Indicatio ns:S/P AVR (aortic valve replacement),Paroxy smal atrial fibrillation (HCC),S/P MVR (mitral valve replacement) [...] encounter Progress Notes * Demarco Gandhi V, [facility] - 11/28/2022 2:00 PM EDT Medication Therapy Disease Management - Anticoagulation Musa Zhou 1935 Description (Takes in AM) Patient Findings Negatives: Signs/symptoms of thrombosis, Signs/symptoms of bleeding, Change in health, Change in alcohol use, Change in activity, Upcoming invasive procedure, Missed doses, Extra doses, Change in medications, Change in diet/appetite, Bruising INR Result As of 11/28/2022 INR goal: 2.5-3.5 INR used for dosin.2 Warfarin Plan As of 11/28/2022 Full warfarin instructions: 11/28: 6 mg; Otherwise 4 mg every Sun, Tue, Susy; 6 mg all other days Next INR check: 01/09/2023 Repeat PT/INR in 6 week(s) Weekly dose: increased Demarco Gandhi RPh, CACP, CDE Clinical Pharmacist Medication Therapy Management [facility] 11/28/2022 2:08 PM documented in this encounter Plan of Treatment Upcoming Encounters Date Type Specialty Care Team Description 12/14/2022 Office Visit Cardiology Toni Painter MD [address] [place] [address] 01/09/2023 Anticoagulation Pharmacy Pharmacist, [facility] [address] [place] [address] 04/25/2023 Telemedicine Neurology Arnoldo Burrell MD [address] [place] [address] Scheduled Procedures Name Priority Associated Diagnoses Date/Ti [...] this encounter Medical Devices Implanted Type Area Unit Operator Device Identifier Shelf Expiration Date Model / Serial / Lot Valve Ce Mitral 25mm 6625 - [id number] Implanted:Qty : 1 on 03/14/2013 at [place] [facility] [place] Tissue - Non Human N/A: Heart [employer] ABRAHAM 07/17/2016 [id number] / [id number] / documented as of this encounter Visit Diagnoses Diagnosis S/P AVR (aortic valve replacement)- Primary Heart valve replaced by other means S/P MVR (mitral valve replacement) Heart valve replaced by other means Anticoagulation management encounter 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 Yes, not currently available Care Teams Duplicating Machine Servicer Relationship Specialty Start Date End Date Clau Mederos MD PCP - General Internal Medicine 09/30/21 documented as of this encounter
--- OUTSIDE RECORDS SUMMARY | 2023-04-09 13:40 | External Medical Summary | Summary of Care ---
Author Name Unknown Organization [facility] Address [address] [place] [address] Phone [phone] Care Team Providers Care Customer Experience Leader Name Role Phone Clau Mederos MD Primary Care Provide r Reason for Visit * Reason Onset Date Comments Forms Request 12/13/2022 [place] / En [facility] Re[facility] Encounter Details Date Type Department Care Team Description 12/13/2022 Telephone Neurology, [place] [address] [place] [address] Specified, [place] [facility] [address] [place] [address] Forms Request ([facility] / [facility]) Allergies Active Allergy Reactions Severity Noted Date Comments Penicillins 09/15/2010 documented as of this encounter (statuses as of 12/21/2022) Medications Medication Sig Dispensed Refills Start Date [...] as of this encounter (statuses as of 12/21/2022) Active Problems Problem Noted Date Macular degeneration [...] as of this encounter (statuses as of 12/21/2022) Resolved Problems Problem Noted Date Resolved Date Chronic atrial flutter 03/07/2013 8 documented as of this encounter (statuses as of 12/21/2022) Immunizations Name Administration Dates Next Due Pneumococcal [...] Plan of Care signed and faxed to [phone] on 12/21/22. Scanned into patients chart. * Telephone Encounter - ALEXANDRO Guallpa - 12/13/2022 9:05 AM EDT Received [facility] Plan of Care from [facility] on 12/13/22. Placed in providers bin for signature. documented in this encounter Plan of Treatment Upcoming Encounters Date Type Specialty Care Team Description 12/26/2022 Office Visit Cardiology Jody Thayer, DO [address] [place] [address] 01/09/2023 Anticoagulation Pharmacy Pharmacist1, [facility] [address] [facility] [place] [address] 04/25/2023 Telemedicine Neurology Arnoldo Burrell MD [address] [place] [address] 07/04/2023 Office Visit Cardiology Anatoliy Mckinney PA-C [address] [place] [address] Scheduled Procedures Name Priority Associated [...] this encounter Medical Devices Implanted Type Area Stained Glass Glazier Helper Device Identifier Shelf Expiration Date Model / Serial / Lot Valve Ce Mitral 25mm 6625 - [id number] Implanted:Q[place] : 1 [place] [facility] [place] - Non Human N/A: Heart [employer] ABRAHAM 07/17/2016 [id number] / [id number] / documented as of this encounter Advance [...] the patient have Health Care Power of Bessemer Bottom Maker? Yes, not currently available Care Teams Customer Experience Leader Relationship Specialty Start Date End Date Clau Mederos MD PCP - General Internal Medicine 09/30/21 documented as of this encounter
--- OUTSIDE RECORDS SUMMARY | 2023-04-09 13:40 | External Medical Summary ---
Author Name Unknown Address Unknown Organization K0G:[facility] [place] [address] [place] [address] Laboratory Report Ordering Provider Test Date Status WALLACE JACKMAN 12/14/2022 15:31:04 Final Observation Date Value Abnormality Reference (Units ) Status BUN 12/14/2022 15:31:04 25 Above high normal 6-20 (mg/dL) Final Creatinine 12/14/2022 15:31:04 1.4 Above high normal 0.6-1.2 (mg/dL) Final Glomerular filtration rate/1.73 sq M.predicted [Volume Rate/Area] in Serum, Plasma or Blood by Creatinine-based formula (CKD-EPI) 12/14/2022 15:31:04 48 Below low normal >=60 (mL/min) Final eGFR is calculated based on the CKD-EPI 2020 equation SODIUM 12/14/2022 15:31:04 139 135-146 (m mol/L) Final Potassium 12/14/2022 15:31:04 4.2 3.5-5.1 (m mol/L) Final Cl 12/14/2022 15:31:04 101 98-107 (mm ol/L) Final CO2 12/14/2022 15:31:04 28 22-32 (mmo l/L) Final Anion gap 12/14/2022 15:31:04 10 7-15 (mmol /L) Final Glucose 12/14/2022 15:31:04 92 70-120 (mg /dL) Final Calcium 12/14/2022 15:31:04 9.3 8.4-10.2 ( mg/dL) Final Performing Location [facility] - [address] [place] [address]
--- OUTSIDE RECORDS SUMMARY | 2023-04-09 13:40 | External Medical Summary | Summary of Care ---
Author Name Unknown Organization [facility] Address [address] [place] [address] Phone [phone] Care Team Providers Care Exercise Scientist Name Role Phone Clau Mederos MD Primary Care Provide r Reason for Visit * Reason Comments Outpatient Testing Encounter Details Date Type Department Care Team Description 12/14/2022 Laboratory Laboratory, [facility] [address] [place] [id number] [facility] [address] [place] [address] S/P MVR (mitral valve replacement); S/P AVR (aortic valve replacement) Allergies Active Allergy Reactions Severity Noted Date Comments Penicillins 09/15/2010 documented as of this encounter (statuses as of 12/14/2022) Medications Medication Sig Dispensed Refills Start Date [...] as of this encounter (statuses as of 12/14/2022) Active Problems Problem Noted Date Macular degeneration [...] as of this encounter (statuses as of 12/14/2022) Resolved Problems Problem Noted Date Resolved Date Chronic atrial flutter 03/07/2013 8 documented as of this encounter (statuses as of 12/14/2022) Immunizations Name Administration Dates Next Due Pneumococcal [...] Office Visit Cardiology Jody Thayer, DO [address] [facility] [place] [address] 01/09/2023 Anticoagulation Pharmacy Pharmacist1, [facility] [address] [facility] [place] [place] [address] 04/25/2023 Telemedicine Neurology [facility]o Burrell MD [address] [facility] [address] 07/04/2023 Office Visit Cardiology Anatoliy Mckinney PA-C [address] [place] [address] Pending Results Name Type Priority Associated Diagnoses Date /Time CBC WITH WBC DIFFERENTIAL Lab Routine S/P MVR (mitral valve replacement) S/P AVR (aortic valve replacement) 12/14/2022 3:31 PM EDT BASIC METABOLIC PANEL Lab Routine S/P MVR (mitral valve replacement) S/P AVR (aortic valve replacement) 12/14/2022 3:31 PM EDT CBC Lab Routine S/P MVR (mitral valve replacement) S/P AVR (aortic valve replacement) 12/14/2022 3:31 PM EDT DIFFERENTIAL, AUTOMATED Lab Routine S/P MVR (mitral valve replacement) S/P AVR (aortic valve replacement) 12/14/2022 3:31 PM EDT Scheduled Procedures Name Priority Associated [...] this encounter Medical Devices Implanted Type Area Hyperbaric Nurse Device Identifier Shelf Expiration Date Model / Serial / Lot Valve Ce Mitral 25mm [id number] - [id number] Implanted:Qty : 1 on 03/14/2013 at [place] [facility] [place] Tissue - Non Human N/A: Heart [employer] AB[employer] 07/17/2016 [id number] / [id number] / documented as of this encounter Visit Diagnoses Diagnosis S/P MVR [...] patient have Health Care Power of Credit Control Clerk? Yes, not currently available Care Teams Exercise Scientist Relationship Specialty Start Date End Date Clau Mederos MD PCP - General Internal Medicine 09/30/21 documented as of this encounter
--- OUTSIDE RECORDS SUMMARY | 2023-04-09 13:40 | External Medical Summary | Summary of Care ---
Author Name Unknown Organization [facility] Address [address] [place] [address] Phone [phone] Care Team Providers Care Dishcloth Folder Name Role Phone Clau Mederos MD Primary Care Provide r Reason for Referral * Evaluate & Treat - Unlimited Visits (Within 10 days (routine)) - Pending Review Specialty Diagnoses / Procedures Referred By Contact Referred To Contact Cardiac Electrophysiology / Cardiology Diagnoses S/P MVR (mitral valve replacement) S/P AVR (aortic valve replacement) Toni Painter MD [address] [place] [address] Referral ID Status Reason Start Date Expiration Date Visits Requested Visits Authorized [id number] Pending Review Specialty Services Required 12/14/[phone] Question Answer Referral Priority Within 10 days (routine) Reason for Visit * Reason Comments Follow Up Encounter Details Date Type Department Care Team Description 12/14/2022 Office Visit Cardiology, [facility] [address] [place] [address] Toni Painter MD [address] [place] [address] S/P MVR (mitral valve replacement)*; S/P AVR (aortic valve replacement) Allergies Active [...] to valvular disease (HCC),S/P AVR (aortic valve replacement),Parox ysmal atrial fibrillation (HCC),HTN, goal below 140/90,S/P MVR (mitral valve replacement),Dysli pidemia, goal LDL below 70 Take 1 Tablet by mouth in the morning. 90 Tablet 3 07/20/2022 Active Warfarin Sodium 2 MG Oral Tablet (Coumadin)Indicati ons:S/P AVR (aortic valve replacement),Parox ysmal atrial fibrillation (HCC),S/P MVR (mitral valve replacement) [...] the morning. 50 Tablet 3 12/14/2022 Active Spironolactone 25 MG Oral Tablet (Aldactone) [...] Date Smoking Tobacco: Never Smokeless Tobacco: Never Tobacco Cessation:Counseling Given: Yes Alcohol Use Standard Drinks/Week Comments Yes 0 (1 standard drink = 0.6 oz pur e alcohol) social Sex Assigned at Date Recorded Not on file Job Start Date Occupation Industry Not on file Not on file Not on file documented as of this encounter Last Filed Vital Signs Vital Sign Reading Time Taken Comments Blood Pressure 122/56 12/14/2022 2:35 PM EDT Pulse 52 12/14/2022 2:35 PM EDT Temperature - - Respiratory Rate 16 12/14/2022 2:35 PM EDT Oxygen Saturation - - Inhaled Oxygen Concentration - - Weight - - Height - - Body Mass Index - - documented in this encounter Progress Notes * Toni Painter MD - 12/14/2022 5:26 PM EDT December 14, 2022 Cardiology Follow Up Referring Provider: PCP: ANDREW NICHOLSON [address] [place] [address] [id number] Chief Complaint Follow up valvular heart disease, conduction system disease SUBJECTIVE: Musa Zhou is a 87 year old year old male with ongoing cardiac and medical issues 1. Bicuspid aortic valve status post initial aortic valve replacement in 1994 with a [place] [employer] mechanical prosthesis. 2. 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 3. Paroxysmal atrial fibrillation, maintaining sinus rhythm on Sotalol and warfarin 4. 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 Nonobstructive CAD per cardiac cath, 2012 6. Hypertension 7. Heart failure with preserved LVEF 8. Dyslipidemia 9. Stage III CKD 10. ALEXANDRO 11. Restrictive lung disease, interstitial nodular lung disease. 12. Idiopathic polyneuropathy Patient presents today in routine follow-up. He is accompanied by his and caregiver who aid inhistory. Generally has been stable with chronic peripheral neuropathy issues ongoing. No worsening shortness of breath or chest pains. Has had spells were brief bradycardia and dizziness were noted by exam. No overt syncope. No feverschills unexplained infections. No bleeding difficulties. Weight generally stable without worsening edema. Some increase in abdominal girth Some sleep disruption, up at night to urinate A Complete Review of Systems is as stated above or negative. 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 90 Tablet 3 Vitamin C 500 MG Oral Capsule Take by mouth. Vitamin B-12 100 MCG Oral Tablet (vitamin B-12) Take 1 Tablet by mouth in the morning. Furosemide 40 MG Oral Tablet (Lasix) Take 1 Tablet by mouth in the morning. 90 Tablet 3 Warfarin Sodium 2 MG Oral Tablet (Coumadin) TAKE 3 TABLETS (6MG) DAILY ON SUNDAY AND SUNDAY AND2 TABLETS (4MG) ALL OTHER DAYS 200 Tablet 3 Magnesium 400 MG Oral Tablet Take by mouth. Zinc 100 MG Oral Tablet Take by mouth. B Complex-C Oral Tablet (Therapeutic B Complex w/C) Take 1 Tablet by mouth in the morning. Spironolactone 25 MG Oral Tablet (Aldactone) Take 0.5 Tablets by mouth in the morning. 50 Tablet 3 PreserVision AREDS 2+Multi Vit Oral Capsule Take by mouth. 2 tablets daily No current facility-administered medications for this visit. OBJECTIVE/PHYSICAL EXAMINATION: BP 122/56 | Pulse 52 | Resp 16 General: no acute distress and stated age Head: normocephalic, no masses, lesions, tenderness or abnormalities Eyes: conjunctiva are pink and non-injected, sclera clear Throat: clear Nares: without discharge Neck: supple, no adenopathy, no bruits, normal jugular venous pulse, no hepatojugular reflux, no carotid bruits Chest: normal shape and normal respiratory effort Lungs: clear to auscultation and percussion, diminished breath sounds Cardiac Exam: - regular rate & rhythm, a grade 2/6 systolic murmur with crisp but distant mechanical valve sounds no diastolic murmur no S3 gallop Pulses: 2(+) throughout Abdomen: abdomen soft, non-tender, no abnormal masses, no hepatosplenomegaly, no abdominal bruit, no femoral bruit Musculoskeletal: no gait disturbance, no joint inflammation, no deforming arthritis Extremities: no edema, no cyanosis, pulses intact 2+/4 Neuro: grossly normal exam Data: Echocardiogram April 20, 2021 There was sinus bradycardia during the examination. The left ventricular cavity size is normal. [...] of 02/21/2019, there is no significant change. Cardiac event monitor for September 07, 2022 CONCLUSIONS: Patient had a min HR of 25 [...] was present. Isolated SVEs were occasional (2.1%, [id number]), SVE Couplets were rare (<1.0%, 130), and SVE Triplets were rare (<1.0%, 30). Isolated VEs were rare (<1.0%), VE Couplets were rare (<1.0%), and no VE Triplets were present. Ventricular Trigeminy was present. Difficulty discerning atrial activity during episode of Pause, making definitive diagnosis between Pause and possible AV block difficult to ascertain. ASSESSMENT: 87 year old year old male ongoing issues 1. Valvular heart disease status post mechanical aortic valve replacement 1994, bioprosthetic mitral valve replacement for flail mitral valve leaflet 2012 , stable. Planned follow-up echocardiogram at 2 year interval April 2023. 2. Paroxysmal atrial fibrillation controlled predominantly in sinus rhythm with sotalol but underlying tachy-robert rhythm and progression in underlying conduction system disease. Observed lightheadedspells in association with Robert arrhythmias at home PLAN: CBC, BMP today Resume spironolactone 12.5 mg per day EP referral for pacemaker insertion. If symptoms of dizziness increase present a ER for admission and inpatient management Discussed in detail with patient and DISPOSITION: Follow-up 6 months time Toni Painter MD [facility] Cardiology, [address] [address] I spent a total of 40-54 minutes (exact time 45 mins) on the date of service in preparation, delivery, and documentation of the care provided to Musa Zhou excluding any time spent in the performance of separately billed services. documented in this encounter Nursing Notes * Filomena Cardenas LPN - 12/14/2022 2:34 PM EDT Examination Room: 12 Name: Musa Zhou Date of : 1935 Reason for Visit: Follow up Problems/Concerns: denies Interim Hosp(s): denies Chest Pain/SOB: denies MyChart Discussed: NO Patient was instructed to not get up [...] Jody Thayer, DO [address] [facility] [address] 01/09/2023 Anticoagulation Pharmacy Pharmacist1, [facility] [address] [place] [address] 04/25/2023 Telemedicine Neurology Arnoldo Burrell MD [address] [place] [address] 07/04/2023 Office Visit Cardiology Anatoliy Mckinney PA-C [address] [facility] [address] Scheduled Procedures Name Priority Associated Diagnoses Date/Ti me BRONCHOSCOPY DIAGNOSTIC WITH OR WITHOUT WASHING Recall Lung disorder Scheduled Referrals Name Type Priority Associated Diagnoses Order Schedule ELECTROPHYSIOLOGY REFERRAL OP Referral Within 10 days (routine) S/P MVR (mitral valve replacement) S/P AVR (aortic valve replacement) Ordered: 12/14/2022 Health Maintenance Due Date Last Done Comments [...] this encounter Medical Devices Implanted Type Area Marine Electrician Helper Device Identifier Shelf Expiration Date Model / Serial / Lot Valve Ce Mitral 25mm 6625 - [id number] Implanted:Qty : 1 on 03/14/2013 at OR [facility] [place] Tissue - Non Human N/A: Heart [employer] 07/17/2016 [id number] / [id number] / documented as of this encounter Results * (ABNORMAL) BASIC METABOLIC PANEL (12/14/2022 3:31 PM EDT) BUN 25(H) 6 - 20 mg/dL 12/14/2022 4:27 PM EDT [facility] Creatinine 1.4(H) 0.6 - 1.2 mg/dL 12/14/2022 4:27 PM EDT [facility] Estimated Glomerular Filtration Rate 48(L) >=60 mL/min 12/14/2022 4:27 PM EDT [facility] Comment:eGFR is calculated b ased on the CKD-EPI 2020 equation Sodium 139 135 - 146 mmol/L 12/14/2022 4:27 PM EDT [facility] Potassium 4.2 3.5 - 5.1 mmol/L 12/14/2022 4:27 PM EDT [facility] Chloride 101 98 - 107 mmol/L 12/14/2022 4:27 PM EDT [facility] CO2 28 22 - 32 mmol/L 12/14/2022 4:27 PM EDT [facility] Anion Gap 10 7 - 15 mmol/L 12/14/2022 4:27 PM EDT [facility] [place]10 Glucose 92 70 - 120 mg/dL 12/14/2022 4:27 PM EDT [facility] 57[facility]10 Calcium 9.3 8.4 - 10.2 mg/dL 12/14/2022 4:27 PM EDT [facility] [place] [facility] 57[facility]10 Blood Venous blood specimen / Unknown Venipuncture / Unknown 12/14/2022 3:31 PM EDT 12/14/2022 3:31 PM EDT oTni Painter MD LAB BLOOD ORDERABLES [facility]10 [address] [facility] [address] documented in this encounter Visit Diagnoses Diagnosis S/P MVR (mitral valve replacement)- Primary Heart valve replaced by other means S/P AVR (aortic valve replacement) Heart valve replaced by other means documented in this encounter Advance Directives Latest Code Status on File Code Status Date Activated Date Inactivated Comments Full Code 03/14/2013 5:15 PM 03/23/2013 4:30 PM Thi s order reflects the patients wishes and were [...] the patient have Health Care Power of Admitting Supervisor? Yes, not currently available Care Teams Dishcloth Folder Relationship Specialty Start Date End Date Clau Mederos MD PCP - General Internal Medicine 09/30/21 documented as of this encounter"
--- NOTE | 2023-04-09 13:41 | XRay Report ---
SINGLE VIEW PELVIS; 2 VIEWS LEFT HIP CLINICAL HISTORY: Fall. Left leg pain. FINDINGS: An AP view of the pelvis with AP and frog-leg views of the left hip are compared to study d ated 10/31/2017. Correlation is made with pelvic CT dated 07/14/2021. The skeletal structures are osteo penic. There is no radiographic evidence of acute fracture involving the hips or bony pelvis. Mild ar thritic change and joint space narrowing is seen in the hips. Mild irregularity involving the lesser trochanter of the left proximal femur is unchanged. There is degenerative sclerosis of the sacroiliac joints and pubic symphysis. The overlying soft tissues are within normal limits. Postsurgical change projects over the groin bilaterally. There is atherosclerotic calcification of the femoral arteries. IMPRESSION: No acute bony abnormality is identified. Electronically signed by: Jasson Vance M.D. 04/09/2023 1:39 PM
--- OUTSIDE RECORDS SUMMARY | 2023-04-09 13:41 | External Medical Summary | Summary of Care ---
Author Name Unknown Organization [facility] Address [address] [place] [address] Phone [phone] Care Team Providers Care Keyboard Specialist Name Role Phone Clau Mederos MD Primary Care Provide r Reason for Visit * Reason Comments Dosage Adjustment In Person (Anticoag Cl inic) Encounter Details Date Type Department Care Team Description 10/31/2022 Anticoagulation Pharmacy, [facility] [address] [facility] [place] [address] Pharmacist1, [facility] [address] [facility] [address] S/P AVR (aortic valve replacement)*; S/P MVR (mitral valve replacement); Anticoagulation management encounter; halfway current use of anticoagulant therapy Allergies Active Allergy Reactions Severity Noted Date Comments Penicillins 09/15/2010 documented as of this encounter (statuses as of 10/31/2022) Medications Medication Sig Dispensed Refills Start Date [...] the morning. 90 Tablet 3 02/06/2022 Active Warfarin Sodium 2 MG Oral Tablet 6 mg every Mon, Fri; 4 mg all other days 200 Tablet 3 02/06/2022 Active Sotalol HCl 80 [...] the morning. 90 Tablet 3 07/20/2022 Active documented as of this encounter (statuses as of 10/31/2022) Active Problems Problem Noted Date Macular degeneration [...] as of this encounter (statuses as of 10/31/2022) Resolved Problems Problem Noted Date Resolved Date Chronic atrial flutter 03/07/2013 8 documented as of this encounter (statuses as of 10/31/2022) Immunizations Name Administration Dates Next Due Pneumococcal [...] encounter Progress Notes * Demarco Gandhi V, [facility] - 10/31/2022 2:21 PM EDT Images from the original note were not included. Medication Therapy Disease Management - Anticoagulation Musa Zhou 1935 Description (Takes in AM) Patient Findings Negatives: Signs/symptoms of thrombosis, Signs/symptoms of bleeding, Change in health, Change in alcohol use, Change in activity, Upcoming invasive procedure, Missed doses, Extra doses, Change in medications, Change in diet/appetite, Bruising INR Result As of 10/31/2022 INR goal: 2.5-3.5 INR used for dosin.2 (10/31/2022) Warfarin Plan As of 10/31/2022 Full warfarin instructions: 6 mg every Mon, Wed, Fri; 4 mg all other days Next INR check: 11/28/2022 Repeat PT/INR in 4 week(s) Weekly dose: increased Demarco Gandhi RPh, CACP, CDE Clinical Pharmacist Medication Therapy Management [facility] 10/31/2022 2:26 PM documented in this encounter Plan of Treatment Upcoming Encounters Date Type Specialty Care Team Description 11/28/2022 Anticoagulation Pharmacy Pharmacist1, [facility] [address] [place] [address] 12/14/2022 Office Visit Cardiology Toni Painter MD [address] [place] [address] 04/25/2023 Telemedicine Neurology Arnoldo Burrell MD [address] [place] [address] Scheduled Procedures Name Priority Associated [...] PCV) 03/08/2014 03/08/2013 Influenza Vaccine (FLU shot) (Season Ended) 2023 02/22/2021, 01/21/2020 COVID-19 Vaccine Completed 02/02/2022, [...] this encounter Medical Devices Implanted Type Area Herbicide Sprayer Device Identifier Shelf Expiration Date Model / Serial / Lot Valve Ce Mitral 25mm 6625 - [id number] Implanted:Qty : 1 on 03/14/2013 at OR [facility] [place] Tissue - Non Human N/A: Heart [employer] ABRAHAM 07/17/2016 [id number] / [id number] / documented as of this encounter Procedures Procedure Name Priority Date/Time Associated Diagnosis Comments INR FINGERSTICK, POINT OF CARE STAT 10/31/2022 2:23 PM EDT S/P AVR (aortic valve replacement) S/P MVR (mitral valve replacement) Anticoagulation management encounter moth exterminator current use of anticoagulant therapy documented in this encounter Results * INR FINGERSTICK, POINT OF CARE (10/31/2022 2:23 PM EDT) Fingerstick INR 2.2 INR 2:24 PM EDT [facility] 56-02 Blood 10/31/2022 2:23 PM EDT 10/31/2022 2:24 PM EDT Narrative [facility] 56-02 - 10/31/2022 2:24 PM EDT Therapeutic ranges for non-operative patients: Prophylaxsis/treatment of DVT: (Range:2.0-3.0) Treatment of pulmonary embolism:(Range:2.0-3.0) Prevention of systemic embolism from: -tissue heart valves -acute myocardial infarction -valvular heart disease -atrial fibrillation (Range: 2.0-3.0) Mechanical prosthetic valves: (Range: 2.5-3.5) Demarco Boyer RP LAB POINT OF CARE TE ST DOCKED DEVICE UNSOLICITED RESULTS [facility] 56-[address] [place] [address] documented in this encounter Visit Diagnoses Diagnosis S/P AVR (aortic valve replacement)- Primary Heart valve replaced by other means S/P MVR (mitral valve replacement) Heart valve replaced by other means Anticoagulation management encounter Encounter for therapeutic drug monitoring halfway current use of anticoagulant therapy documented in [...] the patient have Health Care Power of Auto Radiator Mechanic? Yes, not currently available Care Teams Keyboard Specialist Relationship Specialty Start Date End Date Clau Mederos MD PCP - General Internal Medicine 09/30/21 documented as of this encounter
--- OUTSIDE RECORDS SUMMARY | 2023-04-09 13:41 | External Medical Summary | Summary of Care ---
Author Name Unknown Organization [facility] Address [address] [place] [address] Phone [phone] Care Team Providers Care Hotel Breakfast Attendant Name Role Phone Clau Mederos MD Primary Care Provide r Reason for Visit * Reason Onset Date Comments Follow Up 10/17/2022 Encounter Details Date Type Department Care Team Description 10/17/2022 Scheduled Telephone Neurology, [place] [address] [place] [address] Neuromuscular, Phone Nurse Neuro [address] [place] [address] Allergies Active Allergy Reactions Severity Noted Date Comments Penicillins 09/15/2010 documented as of this encounter (statuses as of 10/18/2022) Medications Medication Sig Dispensed Refills Start Date [...] as of this encounter (statuses as of 10/18/2022) Active Problems Problem Noted Date Macular degeneration [...] as of this encounter (statuses as of 10/18/2022) Resolved Problems Problem Noted Date Resolved Date Chronic atrial flutter 03/07/2013 8 documented as of this encounter (statuses as of 10/18/2022) Immunizations Name Administration Dates Next Due Pneumococcal [...] encounter Miscellaneous Notes * Telephone Encounter - Brittany Hanson LPN - 10/18/2022 2:19 PM EDT Called patient and his Amee at this time. No answer. LM to call back * Telephone Encounter - JUAN Cabello - 10/18/2022 8:14 AM EDT He can try the lower dose of baclofen if he wants. JUAN Montilla * Telephone Encounter - Brittany Hanson LPN - 10/17/2022 1:55 PM EDT 2 week nurse phone follow up Patient was last seen on 09/27/2022 Phone f.u in 2 weeks to review Baclofen benefit on LE spasticity and see if he has been to physiatry See other telephone encounter from 10/12/2022. Pt did not tolerate Baclofen. Per TE patient was scheduled to see Physiatry on 10/13/2022. After speaking with Amee, There are no mechanical engineering specialist in [place] except the one that only does inpatient-no outpatient so patient is working with a PT that specializes in differed diseases. He started last week for 2x/week. -Amee states it is helping some. Per wanted to remind you he also has *macular degeneration-vision is bad They are inquiring about a medication and would consider trying the Baclofen but starting at half tab at HS. I informed her that might not be option since he had a fall. documented in this encounter Plan of Treatment Upcoming Encounters Date Type Specialty Care Team Description 10/31/2022 Anticoagulation Pharmacy Pharmacist1, [facility] [address] [place] [address] 12/14/2022 Office Visit Cardiology Toni Painter MD [address] [place] [address] 04/25/2023 Telemedicine Neurology Arnoldo Burrell MD [address] [place] [address] Scheduled Procedures Name Priority Associated [...] this encounter Medical Devices Implanted Type Area Stock Counter Device Identifier Shelf Expiration Date Model / Serial / Lot Valve Ce Mitral 25mm 6625 - [id number] Implanted:Qty : 1 on 03/14/2013 at [place] [facility] [place] Tissue - Non Human N/A: Heart [place] 07/17/2016 [id number] / [id number] / documented as of this encounter Advance [...] the patient have Health Care Power of Cornetist? Yes, not currently available Care Teams Hotel Breakfast Attendant Relationship Specialty Start Date End Date Clau Mederos MD PCP - General Internal Medicine 09/30/21 documented as of this encounter
--- OUTSIDE RECORDS SUMMARY | 2023-04-09 13:41 | External Medical Summary | Summary of Care ---
Author Name Unknown Organization [facility] Address [address] [place] [address] Phone [phone] Care Team Providers Care Lining Baster Name Role Phone Clau Mederos MD Primary Care Provide r Reason for Visit * Reason Onset Date Comments Forms Request 10/06/2022 [facility] Plan of Care Encounter Details Date Type Department Care Team Description 10/06/2022 Telephone Neurology, [place] [address] [place] [address] Arnoldo Burrell MD [address] [place] [address] Forms Request ([facility] ... Allergies Active Allergy Reactions Severity Noted Date Comments Penicillins 09/15/2010 documented as of this encounter (statuses as of 11/08/2022) Medications Medication Sig Dispensed Refills Start Date [...] the morning. 90 Tablet 3 07/20/2022 Active Baclofen 10 MG Oral Tablet (Lioresal) Take one to two tablets twice a day for spasticity 120 Tablet 5 09/27/2022 3 Discontinue d(Patient preference/ discontinua tion) documented as of this encounter (statuses as of 11/08/2022) Active Problems Problem Noted Date Macular degeneration [...] as of this encounter (statuses as of 11/08/2022) Resolved Problems Problem Noted Date Resolved Date Chronic atrial flutter 03/07/2013 8 documented as of this encounter (statuses as of 11/08/2022) Immunizations Name Administration Dates Next Due Pneumococcal [...] Received Energy Re[facility] Plan of Care from [facility] on 11/07/22. Placed in providers bin for signature. * Telephone Encounter - ALEXANDRO Avila - 10/17/2022 4:18 PM EDT Energy Rehab Plan of Care signed and faxed to [phone] on 10/17/22. Scanned into patients chart. * Telephone Encounter - ALEXANDRO Avila - 10/06/2022 2:38 PM EDT Received Energy Re[facility] Plan of Care from [facility] on 10/06/22. Placed in providers bin for signature. documented in this encounter Plan of Treatment Upcoming Encounters Date Type Specialty Care Team Description 11/28/2022 Anticoagulation Pharmacy Pharmacist1, [facility] [address] [place] [address] 12/14/2022 Office Visit Cardiology Toni Painter MD [address] [place] [facility] [place] [address] 04/25/2023 Telemedicine Neurology Arnoldo Burrell MD [address] [place] [address] Scheduled Procedures Name Priority Associated Diagnoses Date/Ti [...] this encounter Medical Devices Implanted Type Area Cash Management Associate Device Identifier Shelf Expiration Date Model / Serial / Lot Valve Ce Mitral 25mm 6625 - [id number] [place]ed:Q[place] 1 [place] [facility] [place] - Non Human N/A: Heart [employer] ABRAHAM 07/17/2016 [id number] / [id number] / documented as of this encounter Advance [...] the patient have Health Care Power of Director Of Sales And Marketing? Yes, not currently available Care Teams Lining Baster Relationship Specialty Start Date End Date Clau Mederos MD PCP - General Internal Medicine 09/30/21 documented as of this encounter
--- OUTSIDE RECORDS SUMMARY | 2023-04-09 13:41 | External Medical Summary | Summary of Care ---
Author Name Unknown Organization [facility] Address [address] [place] [address] Phone [phone] Care Team Providers Care Tool Planer Set Up Operator Name Role Phone Clau Mederos MD Primary Care Provide r Reason for Visit * Reason Onset Date Comments medication change 10/12/2022 Self discontin ued Baclofen wants to try another medication Encounter Details Date Type Department Care Team Description 10/12/2022 Telephone Neurology, [place] [address] [place] [address] Arnoldo Burrell MD [address] [place] [address] medication change (Self discontinued Baclo... Allergies Active Allergy Reactions Severity Noted Date Comments Penicillins 09/15/2010 documented as of this encounter (statuses as of 10/12/2022) Medications Medication Sig Dispensed Refills Start Date [...] as of this encounter (statuses as of 10/12/2022) Active Problems Problem Noted Date Macular degeneration [...] as of this encounter (statuses as of 10/12/2022) Resolved Problems Problem Noted Date Resolved Date Chronic atrial flutter 03/07/2013 8 documented as of this encounter (statuses as of 10/12/2022) Immunizations Name Administration Dates Next Due Pneumococcal [...] encounter Miscellaneous Notes * Telephone Encounter - JUAN Cabello - 10/12/2022 12:39 PM EDT Other muscle relaxers would likely have the same side effects. Baclofen tends to be a very tolerable medication so I am hesitant to add another medication that may have worsening side effects. I would recommend he see physiatry and then we can consider adding something else after that if it is needed. Please set up a nursing phone follow up after physiatry appt to see how he is doing. JUAN Montilla * Addendum Note - Kayla Minor RN - 10/12/2022 12:14 PM EDTAddended by: KAYLA MINOR on: 10/12/2022 12:14 PM Modules accepted: Orders * Telephone Encounter - Kayla Minor RN - 10/12/2022 11:56 AM EDT Last seen 09/27/22 [place] / [facility] Baclofen 10 mg 1-2 tabs BID for spasticity was ordered Call to patient, spoke to spouse. Who stated: Pt started on Baclofen approx 10/02/22 taking medication for 2 days, experienced new fatigue & lightheadedness. He then cut down dosage to 5mg and still had side effects. He took the reduced dose for 2 more days then had a fall 10/06/22 while using walker (witnessed) not hurt, stopped the medication after this time. She is asking if a different drug can be used for spasticity management. Baclofen was discontinued on med list due to patient preferance Pharmacy preference [id number] . * Telephone Encounter - ALEXANDRO Avila - 10/12/2022 11:41 AM EDT Patient verified identity by spelling of last name and date. Patient took a fall due to taking Baclofen. Constantly wanting to sleep, out of it. Even tried a half tablet. Asking if there is another medication to take instead. Please reach out at [phone]. documented in this encounter Plan of Treatment Upcoming Encounters Date Type Specialty Care Team Description 10/17/2022 Scheduled Telephone Neurology Neuromuscular, Phone Nurse Neuro [address] [place] [address] 10/31/2022 Anticoagulation Pharmacy Pharmacist1, [facility] [address] [place] [address] 12/14/2022 Office Visit Cardiology Toni Painter MD [address] [place] [address] 04/25/2023 Telemedicine Neurology Arnoldo Burrell MD [address] [place] [address] Scheduled Procedures Name Priority Associated [...] this encounter Medical Devices Implanted Type Area Aquaculturist Device Identifier Shelf Expiration Date Model / Serial / Lot Valve Ce Mitral 25mm 6625 - [id number] Implanted:Qty : 1 on 03/14/2013 at [place] [facility] [place] Tissue - Non Human N/A: Heart [employer] ABRAHAM 07/17/2016 [id number] / [id number] / documented as of this encounter Advance [...] the patient have Health Care Power of Resistance Brazer? Yes, not currently available Care Teams Tool Planer Set Up Operator Relationship Specialty Start Date End Date Clau Mederos MD PCP - General Internal Medicine 09/30/21 documented as of this encounter
--- OUTSIDE RECORDS SUMMARY | 2023-04-09 13:41 | External Medical Summary | Summary of Care ---
Author Name Unknown Organization [facility] Address [address] [place] [address] Phone [phone] Care Team Providers Care Controlled Area Checker Name Role Phone Clau Mederos MD Primary Care Provide r Reason for Visit * Reason Onset Date Comments Forms Request 10/06/2022 [facility] Plan of Care Encounter Details Date Type Department Care Team Description 10/06/2022 Telephone Neurology, [place] [address] [place] [address] Arnoldo Burrell MD [address] [place] [address] Forms Request ([facility] ... Allergies Active Allergy Reactions Severity Noted Date Comments Penicillins 09/15/2010 documented as of this encounter (statuses as of 11/15/2022) Medications Medication Sig Dispensed Refills Start Date [...] as of this encounter (statuses as of 11/15/2022) Active Problems Problem Noted Date Macular degeneration [...] as of this encounter (statuses as of 11/15/2022) Resolved Problems Problem Noted Date Resolved Date Chronic atrial flutter 03/07/2013 8 documented as of this encounter (statuses as of 11/15/2022) Immunizations Name Administration Dates Next Due Pneumococcal [...] Plan of Care signed and faxed to [phone] on 11/15/22. Scanned into patients chart. * Telephone Encounter - ALEXANDRO Avila - 11/08/2022 2:45 PM EDT Received Energy Rehab Plan of Care from [facility] on 11/07/22. Placed in providers bin for signature. * Telephone Encounter - ALEXANDRO Avila - 10/17/2022 4:18 PM EDT Energy Rehab Plan of Care signed and faxed to [phone] on 10/17/22. Scanned into patients chart. * Telephone Encounter - ALEXANDRO Avila - 10/06/2022 2:38 PM EDT Received Energy Rehab Plan of Care from [facility] on 10/06/22. Placed in providers bin for signature. documented in this encounter Plan of Treatment Upcoming Encounters Date Type Specialty Care Team Description 11/28/2022 Anticoagulation Pharmacy Pharmacist1, [facility] [address] [place] [address] 12/14/2022 Office Visit Cardiology Toni Painter MD [address] [place] [address] 04/25/2023 Telemedicine Neurology Arnoldo Burrell MD [address] [place] [address] Scheduled Procedures Name Priority Associated Diagnoses Date/Ti [...] encounter Medical Devices Implanted Type Area Marine Plumber Device Identifier Shelf Expiration Date Model / Serial / Lot Valve Ce Mitral 25mm 6625 - [id number] Implanted:Qty : 1 on 03/14/[address] [facility] [place] Tissue - Non Human N/A: Heart [employer] 07/17/2016 [id number] / [id number] / documented as of this encounter Advance [...] the patient have Health Care Power of Drafter Engineering? Yes, not currently available Care Teams Controlled Area Checker Relationship Specialty Start Date End Date Clau Mederos MD PCP - General Internal Medicine 09/30/21 documented as of this encounter
--- OUTSIDE RECORDS SUMMARY | 2023-04-09 13:41 | External Medical Summary | Summary of Care ---
Author Name Unknown Organization [facility] Address [address] [place] [address] Phone [phone] Care Team Providers Care Funeral Service Manager Name Role Phone Clau Mederos MD Primary Care Provide r Reason for Visit * Reason Onset Date Comments Forms Request 10/06/2022 [facility] Plan of Care Encounter Details Date Type Department Care Team Description 10/06/2022 Telephone Neurology, [place] [address] [place] [address] Arnoldo Burrell MD [address] [place] [address] Forms Request ([facility] ... Allergies Active Allergy Reactions Severity Noted Date Comments Penicillins 09/15/2010 documented as of this encounter (statuses as of 10/17/2022) Medications Medication Sig Dispensed Refills Start Date [...] as of this encounter (statuses as of 10/17/2022) Active Problems Problem Noted Date Macular degeneration [...] as of this encounter (statuses as of 10/17/2022) Resolved Problems Problem Noted Date Resolved Date Chronic atrial flutter 03/07/2013 8 documented as of this encounter (statuses as of 10/17/2022) Immunizations Name Administration Dates Next Due Pneumococcal [...] Plan of Care signed and faxed to [phone] on 10/17/22. Scanned into patients chart. * Telephone Encounter - ALEXANDRO Avila - 10/06/2022 2:38 PM EDT Received Energy Rehab Plan of Care from [facility] on 10/06/22. Placed in providers bin for signature. documented in this encounter Plan of Treatment Upcoming Encounters Date Type Specialty Care Team Description 10/31/2022 Anticoagulation Pharmacy Pharmacist1, [facility] [address] [place] [address] 12/14/2022 Office Visit Cardiology Toni Painter MD [address] [place] [address] 04/25/2023 Telemedicine Neurology Arnoldo Burrell MD [address] [place] [address] Scheduled Procedures Name Priority Associated [...] this encounter Medical Devices Implanted Type Area Crepe Sole Wire Brusher Device Identifier Shelf Expiration Date Model / Serial / Lot Valve Ce Mitral 25mm 6625 - [id number] Im[place]ed:Q[place] : 1 [place] [facility] [place] - [place] Human N/A: Heart [employer] 07/17/2016 [id number] / [id number] / documented as of this encounter Advance [...] the patient have Health Care Power of Hand Sizer? Yes, not currently available Care Teams Funeral Service Manager Relationship Specialty Start Date End Date Clau Mederos MD PCP - General Internal Medicine 09/30/21 documented as of this encounter
--- OUTSIDE RECORDS SUMMARY | 2023-04-09 13:41 | External Medical Summary | Summary of Care ---
Author Name Unknown Organization [facility] Address [address] [place] [address] Phone [phone] Care Team Providers Care Cloth Bleaching Supervisor Name Role Phone Clau Mederos MD Primary Care Provide r Reason for Visit * Reason Onset Date Comments Other 11/03/2022 Encounter Details Date Type Department Care Team Description 11/03/2022 Telephone Pharmacy, [facility] [address] [place] [address] Pharmacist2, [facility] [address] [place] [address] Other Allergies Active Allergy Reactions Severity Noted Date Comments Penicillins 09/15/2010 documented as of this encounter (statuses as of 11/03/2022) Medications Medication Sig Dispensed Refills Start Date [...] as of this encounter (statuses as of 11/03/2022) Active Problems Problem Noted Date Macular degeneration [...] as of this encounter (statuses as of 11/03/2022) Resolved Problems Problem Noted Date Resolved Date Chronic atrial flutter 03/07/2013 8 documented as of this encounter (statuses as of 11/03/2022) Immunizations Name Administration Dates Next Due Pneumococcal [...] Notes * Telephone Encounter - Jos Waddell RPh - 11/03/2022 11:45 AM EDT Patient was seen by physiotherapist (outside [facility]) who was concerned that patients dose was increased and his INR is scheduled in 3 weeks. Explained to Alicia the patients vocational childcare teacher that given the patient is not showing any concerning signs for bruising or bleeding and the INR last visit was just slightly low the increase of approximately 5% there is minimal risk for a supratherapeutic INR. Additionally patient denies any pertinent changes to diet or illnesses currently. Next inr still scheduled for 11/28/2022. Jos Waddell PharmD, [facility] Clinical Pharmacist 11/03/2022, 11:49 AM * Telephone Encounter - ALEXANDRO Gutierrez - 11/03/2022 11:31 AM EDT Caller's name: Amee Preferred call back number(OFFICE NUMBER FOR ): [phone] Reason for call: Pt requesting to speak to [facility], says was told he should be rechecked earlier on his PT/INR Thank you, Sage Luna [facility] Development Expert [employer] [facility] 11/03/2022,11:32 AM documented in this encounter Plan of Treatment Upcoming Encounters Date Type Specialty Care Team Description 11/28/2022 Anticoagulation Pharmacy Pharmacist1, [facility] [address] [place] [address] 12/14/2022 Office Visit Cardiology Toni Painter MD [address] [place] [address] 04/25/2023 Telemedicine Neurology Arnoldo Burrell MD [address] [place] [address] Scheduled Procedures Name Priority Associated [...] this encounter Medical Devices Implanted Type Area Aircraft Captain Device Identifier Shelf Expiration Date Model / Serial / Lot Valve Ce Mitral 25mm 6625 - [id number] Implanted:Qty : 1 on 03/14/2013 at [place] [facility] [place] Tissue - Non Human N/A: Heart [employer] ABRAHAM 07/17/2016 [id number] / [id number] / documented as of this encounter Visit [...] the patient have Health Care Power of Meter Tester Primary? Yes, not currently available Care Teams Cloth Bleaching Supervisor Relationship Specialty Start Date End Date Clau Mederos MD PCP - General Internal Medicine 09/30/21 documented as of this encounter
--- OUTSIDE RECORDS SUMMARY | 2023-04-09 13:41 | External Medical Summary | Summary of Care ---
Author Name Unknown Organization [facility] Address [address] [place] [address] Phone [phone] Care Team Providers Care Carpenters Supervisor Name Role Phone Clau Mederos MD Primary Care Provide r Reason for Visit * Reason Onset Date Comments Follow Up 10/17/2022 Encounter Details Date Type Department Care Team Description 10/17/2022 Scheduled Telephone Neurology, [place] [address] [place] [address] Neuromuscular, Phone Nurse Neuro [address] [place] [address] Allergies Active Allergy Reactions Severity [...] After speaking with Amee, There are no powder line repairer in [place] except the one that only does inpatient-no [...] Care Team Description 10/31/2022 Anticoagulation Pharmacy Pharmacist1, [facility] [address] [place] [address] 12/14/2022 Office Visit Cardiology Toni Painter MD [address] [place] [address] 04/25/2023 Telemedicine Neurology Arnoldo Burrell MD [address] [place] [address] Scheduled Procedures Name Priority Associated [...] this encounter Medical Devices Implanted Type Area Seasonal Customer Service Associate Device Identifier Shelf Expiration Date Model / Serial / Lot Valve Ce Mitral 25mm 6625 - [id number] Implanted:Qty : 1 on 03/14/2013 at [place] [facility] [place] Tissue - Non Human N/A: Heart [employer] ABRAHAM 07/17/2016 [id number] / [id number] / documented as of this encounter Advance [...] the patient have Health Care Power of Occupational Medicine Officer? Yes, not currently available Care Teams Carpenters Supervisor Relationship Specialty Start Date End Date Clau Mederos MD PCP - General Internal Medicine 09/30/21 documented as of this encounter
--- OUTSIDE RECORDS SUMMARY | 2023-04-09 13:41 | External Medical Summary | Summary of Care ---
Author Name Unknown Organization [facility] Address [address] [place] [address] Phone [phone] Care Team Providers Care Pole Truck Driver Name Role Phone Clau Mederos MD Primary Care Provide r Reason for Visit * Reason Comments eRx-Medication Refill Encounter Details Date Type Department Care Team Description 11/11/2022 Refill Cardiology, [facility] [address] [facility] [place] [address] [place] [place] [facility] [address] [facility] [address] Paroxysmal atrial fibrillation (HCC)*; S/P AVR (aortic valve replacement); S/P MVR (mitral valve replacement) Allergies Active Allergy Reactions Severity Noted Date Comments Penicillins 09/15/2010 documented as of this encounter (statuses as of 11/13/2022) Medications Medication Sig Dispensed Refills Start Date [...] Chloride ER 20 MEQ Oral Tablet Extended ReleaseIndication s:Chronic 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 [...] 0 Active Furosemide 40 MG Oral Tablet (Lasix)Indication s:Chronic 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 (HCC),S/P AVR (aortic valve replacement),Paro xysmal atrial fibrillation (HCC),HTN, goal below 140/90,S/P MVR (mitral valve replacement),Dysl ipidemia, goal LDL below 70 Take 1 Tablet by mouth in the morning. 90 Tablet 3 07/20/2022 Active Warfarin Sodium 2 MG Oral Tablet (Coumadin)Indicat ions:S/P AVR (aortic valve replacement),Paro xysmal atrial fibrillation (HCC),S/P MVR (mitral valve replacement) TAKE 3 TABLETS (6MG) DAILY ON SUNDAY AND SUNDAY AND 2 TABLETS (4MG) ALL OTHER DAYS 200 Tablet 3 11/13/2022 Active Warfarin Sodium 2 MG Oral Tablet 6 mg every Mon, Fri; 4 mg all other days 200 Tablet 3 02/06/2022 11/14/19 23 Discontinued documented as of this encounter (statuses as of 11/13/2022) Active Problems Problem Noted Date Macular degeneration [...] as of this encounter (statuses as of 11/13/2022) Resolved Problems Problem Noted Date Resolved Date Chronic atrial flutter 03/07/2013 8 documented as of this encounter (statuses as of 11/13/2022) Immunizations Name Administration Dates Next Due Pneumococcal [...] encounter Miscellaneous Notes * Telephone Encounter - Gasper Painter MD - 11/13/2022 11:04 AM EDTSigned Prescriptions: Disp Refills Warfarin Sodium 2 MG Oral Tablet (Coumadin)200 Ta*3 Sig: TAKE 3 TABLETS (6MG) DAILY ON SUNDAY AND SUNDAY AND 2 TABLETS (4MG) ALL OTHER DAYS Authorizing Provider: GASPER PAINTER * Telephone Encounter - Filomena Cardenas LPN - 11/13/2022 10:30 AM EDTPending Prescriptions: Disp Refills Warfarin Sodium 2 MG Oral Tablet [Pharmacy*200 Ta*3 Sig: TAKE 3 TABLETS (6MG) DAILY ON SUNDAY AND SUNDAY AND 2 TABLETS (4MG) ALL OTHER DAYS * Telephone Encounter - Filomena Cardenas LPN - 11/13/2022 10:13 AM EDT Did you pend patient's preferred pharmacy and medication before forwarding?yes Pharmacy: [id number] Pending Prescriptions: Disp Refills Warfarin Sodium 2 MG Oral Tablet (Coumadi*200 Ta*3 Sig: TAKE 3 TABLETS (6MG) DAILY ON SUNDAY AND SUNDAY AND 2 TABLETS (4MG) ALL OTHER DAYS Last Visit: 02/06/2022 (in office), 08/29/2019 (telemedicine) Next Visit: 12/14/2022 If no future appointments scheduled, and last appointment is greater than a year ago, please schedule patient for a follow-up appointment Last date the medication was ordered: 02/06/2022 Is this request for a controlled substance? NO Urine Drug Screen:No results found for this or any previous visit. Patient Phone Numbers Labs: Lab Results Component Value Date/Time CREAT 1.5 (H) 07/25/2022 01:08 PM CREAT 1.4 (H) 09/17/2019 10:49 AM POTASSIUM 4.6 10/21/2020 09:05 AM POTASSIUM 4.7 09/17/2019 10:49 AM TSH 2.65 12/15/2015 03:40 PM LDLCALC 65 09/09/2013 09:25 AM LDLDIRECT 75 09/09/2013 09:25 AM ALT 19 09/17/2019 10:49 AM HGBA1C 5.8 03/08/2013 07:50 AM documented in this encounter Plan of Treatment Upcoming Encounters Date Type Specialty Care Team Description 11/28/2022 Anticoagulation Pharmacy Pharmacist1, [facility] [address] [place] [address] 12/14/2022 Office Visit Cardiology Gasper Painter MD [address] [place] [address] 04/25/2023 Telemedicine Neurology Arnoldo Bur[place] MD [address] [place] [address] Scheduled Procedures Name Priority Associated [...] this encounter Medical Devices Implanted Type Area Hospital Pharmacy Technician Device Identifier Shelf Expiration Date Model / Serial / Lot Valve Ce Mitral 25mm 6625 - [id number] Implanted:Qty : 1 on 03/14/2013 at [place] [facility] [place] Tissue - Non Human N/A: Heart [employer] 07/17/2016 [id number] / [id number] / documented as of this encounter Visit Diagnoses Diagnosis Paroxysmal atrial fibrillation (HCC)- Primary Atrial fibrillation S/P AVR (aortic valve replacement) Heart valve [...] the patient have Health Care Power of Pharmacist In Charge? Yes, not currently available Care Teams Pole Truck Driver Relationship Specialty Start Date End Date Clau Mederos MD PCP - General Internal Medicine 09/30/21 documented as of this encounter
--- OUTSIDE RECORDS SUMMARY | 2023-04-09 13:41 | External Medical Summary | Summary of Care ---
Author Name Unknown Organization [facility] Address [address] [place] [address] Phone [phone] Care Team Providers Care Tyre Builder Name Role Phone Clau Mederos MD Primary Care Provide r Reason for Visit * Reason Onset Date Comments medication change 10/12/2022 Encounter Details Date Type Department Care Team Description 10/12/2022 Telephone Neurology, [place] [address] [place] [address] Arnoldo Burrell MD [address] [place] [address] medication change Allergies Active Allergy Reactions Severity Noted Date [...] day for spasticity 120 Tablet 5 09/27/2022 Active documented as of this encounter (statuses [...] to take instead. Please reach out at [phone]. documented in this encounter Plan of Treatment Upcoming Encounters Date Type Specialty Care Team Description 10/17/2022 Scheduled Telephone Neurology Neuromuscular, Phone Nurse Neuro [address] [place] [address] 10/31/2022 Anticoagulation Pharmacy Pharmacist1, [facility] [address] [place] [address] 12/14/2022 Office Visit Cardiology Toni Painter MD [address] [place] [address] 04/25/2023 Telemedicine Neurology Arnoldo Burrell MD [address] [place] [address] Scheduled Procedures Name Priority Associated Diagnoses Date/Ti [...] this encounter Medical Devices Implanted Type Area Sports Book Board Attendant Device Identifier Shelf Expiration Date Model / Serial / Lot Valve Ce Mitral 25mm 6625 - [id number] Implanted:Qty : 1 on 03/14/2013 at OR [facility] [place] Tissue - Non Human N/A: Heart [employer]RAHAM 07/17/2016 [id number] / [id number] / documented as of this encounter Advance [...] the patient have Health Care Power of Leather Tooler? Yes, not currently available Care Teams Tyre Builder Relationship Specialty Start Date End Date Clau Mederos MD PCP - General Internal Medicine 09/30/21 documented as of this encounter
--- OUTSIDE RECORDS SUMMARY | 2023-04-09 13:41 | External Medical Summary | Summary of Care ---
Author Name Unknown Organization [facility] Address [address] [place] [address] Phone [phone] Care Team Providers Care Machine Operator Assistant Name Role Phone Clau Mederos MD Primary Care Provide r Reason for Visit * Reason Onset Date Comments medication change 10/12/2022 Self discontin ued Baclofen wants to try another medication Encounter Details Date Type Department Care Team Description 10/12/2022 Telephone Neurology, [place] [address] [place] [address] Arnoldo Burrell MD [address] [place] [address] medication change (Self discontinued Baclo... [...] as of this encounter Miscellaneous Notes * Addendum Note - Kayla Minor RN - 10/12/2022 12:14 PM EDTAddended by: KAYLA MINOR on: 10/12/2022 12:14 PM Modules accepted: Orders * Telephone Encounter - Kayla Minor RN - 10/12/2022 11:56 AM EDT Last seen 09/27/22 [place] / [place] Baclofen 10 mg 1-2 tabs BID for [...] to patient preferance Pharmacy preference [id number] . * Telephone Encounter - ALEXANDRO Avila - 10/12/2022 11:41 AM EDT Patient verified identity by spelling of last name and date. Patient took a fall due to taking Baclofen. Constantly wanting to sleep, out of it. Even tried a half tablet. Asking if there is another medication to take instead. Please reach out at [phone]. documented in this encounter Plan of Treatment Upcoming Encounters Date Type Specialty Care Team Description 10/17/2022 Scheduled Telephone Neurology Neuromuscular, Phone Nurse Neuro [address] [place] [address] 10/31/2022 Anticoagulation Pharmacy Pharmacist1, [facility] [address] [place] [address] 12/14/2022 Office Visit [facility]iology [facility] [address] [facility] [address] 04/25/2023 Telemedicine Neurology Arnoldo Burrell MD [address] [place] [address] Scheduled Procedures Name Priority Associated [...] this encounter Medical Devices Implanted Type Area Buck Swamper Device Identifier Shelf Expiration Date Model / Serial / Lot Valve Ce Mitral 25mm 6625 - [id number] Implanted:Qty : 1 on 03/14/2013 at OR [facility] [place] Tissue - Non Human N/A: Heart [employer] [place]RAHAM 07/17/2016 [id number] / [id number] / documented as of this encounter Advance [...] the patient have Health Care Power of Senior Contract Specialist? Yes, not currently available Care Teams Machine Operator Assistant Relationship Specialty Start Date End Date Clau Mederos MD PCP - General Internal Medicine 09/30/21 documented as of this encounter
--- OUTSIDE RECORDS SUMMARY | 2023-04-09 13:41 | External Medical Summary | Summary of Care ---
Author Name Unknown Organization [facility] Address [address] [place] [address] Phone [phone] Care Team Providers Care Strip Machine Operator Name Role Phone Clau Mederos MD Primary Care Provide r Reason for Visit * Reason Onset Date Comments medication change 10/12/2022 Self discontin ued Baclofen wants to try another medication Encounter Details Date Type Department Care Team Description 10/12/2022 Telephone Neurology, [place] [address] [place] [address] Arnoldo Burrell MD [address] [place] [address] medication change (Self discontinued Baclo... [...] encounter Miscellaneous Notes * Telephone Encounter - Kayla Minor RN - 10/12/2022 12:48 PM EDT Nurse call set up for 10/17/22 Their next visit with physiatry is 10/13/2022. Reviewed recommendations from Angie Hatch and are aware of nurse follow up call * Telephone Encounter - JUAN Cabello - [...] to patient preferance Pharmacy preference [id number] . * Telephone Encounter - ALEXANDRO Avila - 10/12/2022 11:41 AM EDT Patient verified identity by spelling of last name and date. Patient took a fall due to taking Baclofen. Constantly wanting to sleep, out of it. Even tried a half tablet. Asking if there is another medication to take instead. Please reach out at [phone]. documented in this encounter Plan of Treatment Upcoming Encounters Date Type Specialty Care Team Description 10/17/2022 Scheduled Telephone Neurology Neuromuscular, Phone Nurse Neuro [address] [place] [address] 10/31/2022 Anticoagulation Pharmacy Pharmacist1, [facility] [address] [place] [address] 12/14/2022 Office Visit Cardiology Toni Painter MD [address] [place] [facility] [place] [address] 04/25/2023 Telemedicine Neurology Arnoldo Burrell MD [address] [place], [place] [id number] Scheduled Procedures Name Priority Associated Diagnoses Date/Ti [...] this encounter Medical Devices Implanted Type Area Digital Marketer Device Identifier Shelf Expiration Date Model / Serial / Lot Valve Ce Mitral 25mm 6625 - [id number] Implanted:Qty : 1 on 03/14/2013 at [place] [facility] [place] Tissue - Non Human N/A: Heart [employer] [place]AM 07/17/2016 [id number] / [id number] / documented as of this encounter Advance [...] the patient have Health Care Power of Pulverizer? Yes, not currently available Care Teams Strip Machine Operator Relationship Specialty Start Date End Date Clau Mederos MD PCP - General Internal Medicine 09/30/21 documented as of this encounter
--- OUTSIDE RECORDS SUMMARY | 2023-04-09 13:41 | External Medical Summary | Summary of Care ---
Author Name Unknown Organization [facility] Address [address] [place] [address] Phone [phone] Care Team Providers Care Hog Slaughterer Name Role Phone Clau Mederos MD Primary Care Provide r Reason for Visit * Reason Onset Date Comments Follow Up 10/17/2022 Encounter Details Date Type Department Care Team Description 10/17/2022 Scheduled Telephone Neurology, [place] [address] [place] [address] Neuromuscular, Phone Nurse Neuro [address] [place] [address] Allergies Active Allergy Reactions Severity Noted Date Comments Penicillins 09/15/2010 documented as of this encounter (statuses as of 10/23/2022) Medications Medication Sig Dispensed Refills Start Date [...] as of this encounter (statuses as of 10/23/2022) Active Problems Problem Noted Date Macular degeneration [...] as of this encounter (statuses as of 10/23/2022) Resolved Problems Problem Noted Date Resolved Date Chronic atrial flutter 03/07/2013 8 documented as of this encounter (statuses as of 10/23/2022) Immunizations Name Administration Dates Next Due Pneumococcal [...] Telephone Encounter - Brittany Hanson LPN - 10/23/2022 8:37 AM EDT Called Musa and , Amee at this time and made them aware of providers recommendations. Amee verbalized understanding at this time. Advised to call me with questions or issues at any time. * Telephone Encounter - Brittany Hanson LPN [...] After speaking with Amee, There are no neuroradiologist in [place] except the one that only does inpatient-no [...] Care Team Description 10/31/2022 Anticoagulation Pharmacy Pharmacist1, [facility] [address] [place] [address] 12/14/2022 Office Visit Cardiology Toni Painter MD [address] [place] [address] 04/25/2023 Telemedicine Neurology Arnoldo Burrell MD [address] [place] [address] Scheduled Procedures Name Priority Associated [...] this encounter Medical Devices Implanted Type Area Telemetry Monitor Device Identifier Shelf Expiration Date Model / Serial / Lot Valve Ce Mitral 25mm 6625 - [id number] Implanted:Qty : 1 on 03/14/2013 at OR [facility] [place] Tissue - Non Human N/A: Heart [employer] [place] 07/17/2016 [id number] / [id number] / documented as of this encounter Advance [...] the patient have Health Care Power of Paint Trimmer Pipe Bowls? Yes, not currently available Care Teams Hog Slaughterer Relationship Specialty Start Date End Date Clau Mederos MD PCP - General Internal Medicine 09/30/21 documented as of this encounter
--- OUTSIDE RECORDS SUMMARY | 2023-04-09 13:41 | External Medical Summary ---
Author Name Unknown Address Unknown Organization K09:[facility] [place] [id number] Laboratory Report Ordering Provider Test Date Status SONJA MELCHOR V 10/31/2022 14:23:20 Final Therapeutic ranges for non-o perative patients:
Prophylaxsis/treatment of DVT: (Range:2.0-3.0)
Treatment of pulmonary embolism:(Range:2.0-3.0)
Prevention of systemic embolism from:
-tissue heart valves
-acute myocardial infarction
-valvular heart disease
-atrial fibrillation
(Range: 2.0-3.0)
Mechanical prosthetic valves: (Range: 2.5-3.5) Observation Date Value Abnormality Reference (Units ) Status INR in Capillary blood by Coagulation assay 10/31/2022 14:23:20 2.2 (INR) Final Performing Location [facility] [place] [id number]
--- OUTSIDE RECORDS SUMMARY | 2023-04-09 13:41 | External Medical Summary | Summary of Care ---
Author Name Unknown Organization [facility] Address [address] [place] [address] Phone [phone] Care Team Providers Care Loader Operator Supervisor Name Role Phone Clau Mederos MD Primary Care Provide r Reason for Visit * Reason Onset Date Comments Follow Up 10/17/2022 Encounter Details Date Type Department Care Team Description 10/17/2022 Scheduled Telephone Neurology, [place] [address] [place] [address] Neuromuscular, Phone Nurse Neuro [address] [place] [address] Allergies Active Allergy Reactions Severity [...] After speaking with Amee, There are no evaluation analyst in [place] except the one that only does inpatient-no [...] Care Team Description 10/31/2022 Anticoagulation Pharmacy Pharmacist1, [facility] [address] [place] [address] 12/14/2022 Office Visit Cardiology Toni Painter MD [address] [place] [address] 04/25/2023 Telemedicine Neurology Arnoldo Burrell MD [address] [place], [place] [phone] Scheduled Procedures Name Priority Associated Diagnoses Date/Ti [...] this encounter Medical Devices Implanted Type Area Associate Agent Insurance Sales Device Identifier Shelf Expiration Date Model / Serial / Lot Valve Ce Mitral 25mm 6625 - [id number] Implanted:Qty : 1 on 03/14/2013 at OR [facility] [place] Tissue - Non Human N/A: Heart [employer] [place] 07/17/2016 [id number] / [id number] / documented as of this encounter Advance [...] the patient have Health Care Power of Firearms Instructor? Yes, not currently available Care Teams Loader Operator Supervisor Relationship Specialty Start Date End Date Clau Mederos MD PCP - General Internal Medicine 09/30/21 documented as of this encounter
--- NOTE | 2023-04-09 13:48 | XRay Report ---
XR femur LT 2V routine CLINICAL HISTORY: fall TECHNIQUE: 2 radiographic views of the left femur were obtained. Comparison: Comparison is made to left hip radiographs 04/09/2023 FINDINGS: There is no evidence of an acute fracture. The visualized portion of the hip and knee joints are unre markable. The soft tissues are unremarkable. IMPRESSION: No evidence of acute bony injury. ACT 112: Negative or not required by law. Electronically signed by: Brandon Flowers M.D. 04/09/2023 1:46 PM
--- NOTE | 2023-04-09 13:48 | XRay Report ---
XR shoulder LT min 2V routine CLINICAL HISTORY: fall TECHNIQUE: 3 views of the right shoulder were obtained. Comparison: Comparison is made to right shoulder radiograph 07/12/2021 FINDINGS: There is no evidence of an acute fracture. Joint spaces are well-preserved. The overlying soft tissue s are unremarkable. The visualized portions of the lungs are clear. IMPRESSION: No evidence of acute osseous injury. ACT 112: Negative or not required by law. Electronically signed by: Brandon Flowers M.D. 04/09/2023 1:47 PM
--- NOTE | 2023-04-09 13:58 | XRay Report ---
LEFT KNEE 2 VIEWS CLINICAL HISTORY: Fall. Left knee injury. FINDINGS: AP and crosstable lateral views of the left knee are obtained. No prior studies are availab le for comparison at the time of dictation. The skeletal structures are osteopenic. No fracture is se en. There is mild tricompartmental degenerative joint space narrowing. There is chondrocalcinosis in the medial and lateral compartments. A joint effusion is observed. There is prepatellar soft tissue s welling. Atherosclerotic calcification is noted in the popliteal artery. IMPRESSION: 1. Soft tissue swelling and joint effusion with no acute bony abnormality identified. 2. Mild degenerative change and chondrocalcinosis as above. Electronically signed by: Jasson Vance M.D. 04/09/2023 1:56 PM
--- NOTE | 2023-04-09 14:26 | History & Physical Report ---
Date of Service April 09, 2023 Assessment & Plan (1) Fall: Plan: Left-sided ground level fall on 04/08 (on Coumadin) No LOC, head strike, tripping, dizziness, or lightheadedness Shoulder, ribs, left knee, right knee, hip/pelvis, femur XRs without acute fractures; soft tissue swelling around the knees B/L EKG showed AV dual paced rhythm at 79 bpm; low suspicion that cardiac etiology was the cause of his fall Mild leukocytosis at 12.27 with a neutrophil predominance; afebrile COVID negative UA negative Fall precautions Acetaminophen 650 mg p.o. q6h as needed for pain [facility] was unable to accept him d/t limited space PT/OT consult while inpatient A.m. CBC, BMP, PT/INR (2) Ambulatory dysfunction: Plan: Ambulates with a walker at baseline, wheelchair for distances Decreased strength in the LEs b/l on physical exam We will need PT/OT and potential placement upon discharge (3) Idiopathic polyneuropathy: Plan: Burning sensation in feet started upon ED arrival 04/09 Hx of pseudogout Apply Voltaren 1% gel 4g QID as needed for foot pain Vitamin B12 pending (4) History of atrial fibrillation: Plan: Permanent dual AV pacemaker placed Stable; rate controlled PT/INR 1.9 on arrival Continue Coumadin Continue sotalol (5) (HFpEF) heart failure with preserved ejection fraction: Plan: Continue furosemide, spironolactone (6) Restless leg syndrome: Plan: Continue ropinirole (7) CKD (chronic kidney disease), stage III: Plan: BUN 32, creatinine 1.60 (baseline 1.44), EGFR 38.4 Avoid nephrotoxic agents Plan Disposition: Obs -admit to [facility] DNR/DNI AHA diet VTE PPx: On Coumadin History of Present Illness Chief Complaint: Fall Primary Care Provider: Clau Mederos MD Musa is an 87-year-old male with PMH of CAD, BPH, CKD stage III, A-fib/flutter, permanent pacemaker, HFpEF, pseudogout, plantar fasciitis of the left foot, idiopathic polyneuropathy, and chronic obstructive asthma. He presented for bilateral worsening knee pain/weakness that led to a left-sided GL fall on 04/08 at 1999. Patient is on Coumadin for A-fib. Denies LOC. Denies head strike. Denies dizziness, lightheadedness, tripping. Patient took all medications today 04/09. Uses a walker at baseline, in a wheelchair for distance. He did not take any medication at home for pain. Patient also endorses "burning" pain in both his feet that started shortly after ED arrival; hx of gout/pseudogout; does not take medication for gout. Patient is UTD on COVID shots + boosters. Patient denies need for pain medicine at time of exam. Vitals stable at time of admission. ED course: Acetaminophen 1000 mg IV ROS: Patient endorses frequent urination, and weakness/numbness/tingling in LEs (worse in left). Patient denies fever, chills, RANGEL, dizziness, lightheadedness, CP, SOB, abdominal pain, N/V/D, burning with urination, or blood in stool/urine. Coumadin schedule: 4mg on sun/Sun/ 6mg on Sun/Sun/Sun/Sat No PMHx of DVT/PE, [place], CVA, diabetes, cancer Allergies Allergy/AdvReac Type Severity Reaction Status Date / Time Penicillins Allergy Intermediate RASH Verified 01/10/23 11:38 Home Medications Medication Instructions Recorded Confirmed Type furosemide 40 mg tablet 20 mg PO QAM 03/04/19 04/09/23 History sotalol 80 mg tablet 40 mg PO QAM 11/12/19 04/09/23 History acetaminophen 500 mg tablet 1,000 mg (2 x 500 mg) PO BID PRN 07/18/21 04/09/23 Rx (Tylenol Extra Strength) Pain #30 tabs diclofenac sodium 1 % topical gel 4 g EXT QID PRN Pain 11/03/21 04/09/23 History (Voltaren Arthritis Pain) vit C,E,zinc,copper-dukeg3o 250 2 cap PO QAM 11/03/21 04/09/23 History mg-lutein 5 mg-zeaxanthin 1 mg capsule warfarin 2 mg tablet See Rx Instructions .Route 11/11/21 04/09/23 Rx .COMPLEX #0 tabs diaper,brief,adult,disposable #100 ea 02/02/22 01/01/23 Rx (B[place] Choice Comfort Protect Adult Diaper X-Large) amoxicillin 500 mg capsule 2,000 mg PO PRN 01/01/23 04/09/23 History atorvastatin 20 mg tablet 20 mg PO HS #90 tabs 01/01/23 04/09/23 Rx magnesium oxide 400 mg PO DAILY 01/01/23 04/09/23 History spironolactone 25 mg tablet 12.5 mg PO DAILY 01/01/23 04/09/23 History vitamin B complex (B 1 tab PO DAILY 01/01/23 04/09/23 History Complex-Vitamin B12 tablet) ropinirole 0.25 mg tablet 0.25 mg PO HS #90 tabs 01/08/23 04/09/23 Rx ascorbic acid (vitamin C) 500 mg 500 mg PO DAILY 04/09/23 04/09/23 History tablet (Vitamin C) folic acid 400 mcg tablet 0.4 mg PO DAILY 04/09/23 04/09/23 History Past Med/Surg History Medical History CKD (chronic kidney disease), stage III Macular degeneration GETS SHOTS IN EYES FOR TREATMENT Q8-10 WEEKS Restless leg syndrome History of cardioversion History of atrial fibrillation Hypertension Aortic valve disorder Atrial flutter BPH with obstruction/lower urinary tract symptoms Coronary artery disease Nonobstructive on [facility] 2012 Ventral hernia Moderate obstructive sleep apnea Pseudogout Surgical History History of left cataract surgery 11/19/2019. propofol given. History of colonoscopy History of tooth extraction History of inguinal hernia repair LEFT X 2 History of vasectomy [facility] History of aortic valve replacement AT AGE 58 ([facility]) Family History Sister Heart disease Denies family history of Ovarian cancer Prostate cancer Myocardial infarction Breast cancer Colorectal cancer Social History Smoking Status: Never smoker Second Hand Exposure: No; Do You Dip or Chew Tobacco: No; Hx Alcohol Use: Yes Alcohol type: wine Alcohol Intake Frequency: 2-3 x/Week Alcohol Intake Frequency Comment: 2 glasses of wine per week Hx Substance Use: No Preferred Language: Kinyarwanda Communication Ability: Effective Visual Impairment: Diminished Hearing Ability: Normal Body Fitter Required: No Beliefs That Will Affect Care: None marital status: Current Living Situation: Spouse current occupational status: retired 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 Other Information That Helps Us Care for You: No Feels Safe at Home: Yes Safety Concerns: Feels Safe At This Time Childhood Exposure to Second-Hand Smoke: Yes Diet: regular Dental Care, Regularly: Yes Physical Activity Frequency: Daily Seatbelt Use: always Sunscreen Use: Yes (sometimes ) Assistive Devices: Walker Review of Systems Review of Systems: See HPI above Physical Exam Physical Exam: General: no acute distress; non-toxic appearing; well-nourished; cooperative HEENT: normocephalic, atraumatic; no scleral icterus; PERRLA w/ EOMs intact; moist mucus membrane; vision and hearing grossly intact Neck: supple; no JVD; no lymphadenopathy; trachea midline Skin: warm, dry without signs of tenting; no cyanosis; no rashes, bruising, lesions, or erythema noted CV: chest wall NTP; RRR; S1/S2 normal; no murmurs/rubs/gallops; pulses intact and symmetric at radial, DP, and PT Lungs: no acute respiratory distress; symmetrical chest wall expansion; clear breath sounds across all lung buckley w/o adventitious sounds; no wheezing ABD: Soft, NTP; BS present; no rebound/guarding; no ascites MSK: Right first digit exhibits gross eversion; no tics or fasciculations; +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 b/l; moderate +1 pitting edema in the LEs B/L; decreased LE strength B/L with plantarflexion, dorsiflexion, bending at the hip Neuro: A&Ox3; normal mood and affect; fluent speech; no focal deficits; decreased sensation in the right LE; symmetric, intact sensation in the UEs B/L Results & Data Results & Data Vital Signs (Past 12 Hours) Vital Signs Temp Pulse Pulse Resp BP BP Pulse Ox 04/09/23 14:18 64 04/09/23 13:19 60 16 109/65 95 04/09/23 11:51 63 16 125/67 96 04/09/23 11:00 60 18 127/67 95 04/09/23 10:48 36.8 C 97 H 18 146/84 H 98 04/09/23 10:27 76 O2 Del Method 04/09/23 14:18 04/09/23 13:19 Room Air 04/09/23 11:51 Room Air 04/09/23 11:00 Room Air 04/09/23 10:48 Room Air 04/09/23 10:27 Laboratory Results Abnormal lab results 04/09/23 Range/Units 11:53 WBC 12.27 H (4.8-10.8) K/ul RBC 4.23 L (4.70-6.10) M/uL Hgb 13.4 L (14.0-18.0) g/dl Hct 39.7 L (42.0-52.0) % Neut # (Auto) 7.67 H (1.40-6.50) K/uL [place] # (Auto) 2.54 H (0.11-0.59) K/uL Sodium 135 L (136-145) mmol/L Chloride 97 L (98-107) mmol/L Carbon Dioxide 33 H (21-32) mmol/L BUN 32 H (6-23) mg/dl Creatinine 1.60 H (0.6-1.4) mg/dl Troponin I High Sens 29.0 H (0-20) pg/ml Globulin 4.4 H (2.5-4.0) gm/dl Diagnostic Findings Femur X-Ray 04/09/23 11:23 XR femur LT 2V routine CLINICAL HISTORY: fall TECHNIQUE: 2 radiographic views of the left femur were obtained. Comparison: Comparison is made to left hip radiographs 04/09/2023 FINDINGS: There is no evidence of an acute fracture. The visualized portion of the hip and knee joints are unremarkable. The soft tissues are unremarkable. IMPRESSION: No evidence of acute bony injury. ACT 112: Negative or not required by law. Electronically signed by: Brandon Flowers M.D. 04/09/2023 1:[address] 04/09/23 11:23 CT SCAN OF THE BRAIN WITHOUT IV CONTRAST CLINICAL HISTORY: Fall. COMPARISON STUDY: CT of the brain dated 11/03/2021. TECHNIQUE: Unenhanced axial CT scan of the brain is performed from the vertex to the skull base. A dose lowering technique was utilized adhering to the principles of ALARA. CT DOSE: 1000.44 mGy.cm FINDINGS: Brain parenchyma: There is age-related involutional change noting mild subcortical and periventricular microangiopathic disease. There is no hemorrhage, mass effect, or evidence of acute territorial ischemia by CT criteria. Leonard-white matter differentiation is preserved. No extra-axial fluid collection is seen. Ventricles, sulci, cisterns: Prominent secondary to involutional change. Intracranial vasculature: There is atherosclerotic calcification of the cavernous carotid and vertebral arteries. Calvarium: The skeletal structures are osteopenic. No depressed calvarial fracture is seen. Sinuses and mastoids: The visualized paranasal sinuses are clear. The mastoid air cells are well pneumatized. Orbits: The bony orbits are grossly intact. There are bilateral ocular lens implants. IMPRESSION: There is no hemorrhage, mass effect, or evidence of acute territorial ischemia by CT criteria. ACT 112: Negative or not required by law. Electronically signed by: Jasson Vance M.D. 04/09/2023 12:21 PM Hip/Pelvis X-Ray 04/09/23 11:23 SINGLE VIEW PELVIS; 2 VIEWS LEFT HIP CLINICAL HISTORY: Fall. Left leg pain. FINDINGS: An AP view of the pelvis with AP and frog-leg views of the left hip are compared to study dated 10/31/2017. Correlation is made with pelvic CT dated 07/14/2021. The skeletal structures are osteopenic. There is no radiographic evidence of acute fracture involving the hips or bony pelvis. Mild arthritic change and joint space narrowing is seen in the hips. Mild irregularity involving the lesser trochanter of the left proximal femur is unchanged. There is degenerative sclerosis of the sacroiliac joints and pubic symphysis. The overlying soft tissues are within normal limits. Postsurgical change projects over the groin bilaterally. There is atherosclerotic calcification of the femoral arteries. IMPRESSION: No acute bony abnormality is identified. Electronically signed by: Jasson Vance M.D. 04/09/2023 1:39 PM Knee X-Ray 04/09/23 11:23 XR knee RT 3V CLINICAL HISTORY: fall. Right knee pain. COMPARISON STUDY: Right knee 07/13/2021. FINDINGS: No acute fracture or dislocation within the right knee. There is a small right knee effusion. Chondrocalcinosis is again noted. There is severe osteoarthritis at the lateral patellofemoral joint. Mild degenerative changes seen throughout the remaining compartments of the right knee. There are mild vascular calcifications. Mild anterior soft tissue swelling. IMPRESSION: 1. No acute fracture or dislocation within the right knee. 2. Chondrocalcinosis and degenerative changes again noted. 3. Anterior soft tissue swelling. 4. Small right knee effusion. This has improved. ACT 112: Negative or not required by law. Electronically signed by: Andrea Sahu M.D. 04/09/2023 1:21 PM Knee X-Ray 04/09/23 11:23 LEFT KNEE 2 VIEWS CLINICAL HISTORY: Fall. Left knee injury. FINDINGS: AP and crosstable lateral views of the left knee are obtained. No prior studies are available for comparison at the time of dictation. The skeletal structures are osteopenic. No fracture is seen. There is mild tricompartmental degenerative joint space narrowing. There is chondrocalcinosis in the medial and lateral compartments. A joint effusion is observed. There is prepatellar soft tissue swelling. Atherosclerotic calcification is noted in the popliteal artery. IMPRESSION: 1. Soft tissue swelling and joint effusion with no acute bony abnormality identified. 2. Mild degenerative change and chondrocalcinosis as above. Electronically signed by: Jasson Vance M.D. 04/09/2023 1:56 PM Ribs w/Chest X-Ray 04/09/23 11:23 AP CHEST WITH LEFT-SIDED RIB SERIES CLINICAL HISTORY: Fall. Left-sided chest wall pain. FINDINGS: 3 AP supine chest radiographs with 5 additional views from a left- sided rib series is compared to study dated 01/10/2023 and correlated with chest CT dated 07/13/2021. The patient is status post midline sternotomy. Epicardial leads are in place. The heart is enlarged noting atherosclerotic calcification of the thoracic aorta. There is mild pulmonary vascular congestion. Small pleural effusions are suspected with bibasilar scarring/atelectasis. Segmental atelectasis is again seen in the right middle lobe. No pneumothorax is seen. The skeletal structures are osteopenic. There is no radiographic evidence of a cute/displaced left-sided rib fracture on the rib series. There is chronic deformity of the left fifth rib. The remainder of the bony thorax is grossly intact. IMPRESSION: 1. Cardiomegaly and cardiac pacemaker with pulmonary vascular congestion. 2. Suspect small pleural effusions. 3. Segmental atelectasis is again seen in the right middle lobe. 4. There is no radiographic evidence of acute/displaced left-sided rib fracture on the rib series. ACT 112: Negative or not required by law. Electronically signed by: Jasson Vance M.D. 04/09/2023 1:36 PM Shoulder X-Ray 04/09/23 11:24 XR shoulder LT min 2V routine CLINICAL HISTORY: fall TECHNIQUE: 3 views of the right shoulder were obtained. Comparison: Comparison is made to right shoulder radiograph 07/12/2021 FINDINGS: There is no evidence of an acute fracture. Joint spaces are well-preserved. The overlying soft tissues are unremarkable. The visualized portions of the lungs are clear. IMPRESSION: No evidence of acute osseous injury. ACT 112: Negative or not required by law. Electronically signed by: Brandon Flowers M.D. 04/09/2023 1:47 PM Code Status & VTE Plan Code Status DNR/DNI VTE Prophylaxis Plan VTE Prophylaxis will be ordered: Yes Supervising Physician Co-Signing Physician Notes I personally saw and examined the patient. I independently reviewed the labs, EKG, imaging, problem list, medication list, past medical history and family history. I verified all talavera points and agree with Andrea Santos PA-C with the following exceptions and/or additions: 87 year old male who presents to the ER with a fall. The patient reports he lost his balance which has been on ongoing issues related to sensory peripheral neuropathy. No recent infective respiratory, gastrointestinal or urinary symptoms. O/E HS RRR, no murmurs, Chest CTAB, Abdo SNT, BS normal, right foot inversion with increased tone, denies any numbness in his feet. 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 Chronic right foot inversion with mixed polyneuropathy on EMG testing - review of outpatient notes reports workup by neurology by Dr Real and second opinion from [facility] - suspected to have transverse myelitis after COVID infection no longer present on MRI although I do not see any prior MRI lumbar spine performed (just cervical and thoracic), no prior LP as not thought it would changeover operator given improving/stable. No back pain. No fractures from imaging from the fall. PT/OT. Plan was for discharge back to the [facility] however requires inpatient PT/OT assessments prior to this. PG Care Time/CCT Total # of Minutes Spent Total Time Spent with Patient: Total time spent is greater than 50% in coordination of care (as documented) at patient's floor/unit and/or counseling patient: Coding [place] [address] INT INP/OBS CARE 2/MIN Patient Type Established Medical Decision Making Moderate Complexity Diagnoses Fall W19.XXXA Ambulatory dysfunction R26.2 Idiopathic polyneuropathy G60.9 History of atrial fibrillation Z86.79 (HFpEF) heart failure with preserved ejection fraction I50.30 Restless leg syndrome G25.81 CKD (chronic kidney disease), stage III N18.30
[2023-04-09 14:58] LABS: Appearance Urine Clear (Clear); Bilirubin Urine Negative (Negative); Blood Urine Negative (Negative); Color Urine Dark Yellow; Glucose Urine UA Negative (Negative); Ketones Urine Negative (Negative); Leukocyte Esterase Urine Negative (Negative); Nitrite Urine Negative (Negative); Protein Urine Negative (Negative); Specific Gravity Urine 1.015 (1.000-1.030); Urobilinogen Urine Negative (Negative)
[2023-04-09 15:08] LABS: INR 1.9 (0.9-1.1); Prothrombin Time 19.7 Seconds (9.0-12.0)
[2023-04-09] MEDS: WARFARIN SOD 6 MG TAB PO SCH (16:34)
[2023-04-09] MEDS: rOPINIRole HCL 0.25 MG TABLET PO SCH (20:18)
[2023-04-09] MEDS: ATORVASTATIN 20 MG TAB PO SCH (20:18)
[2023-04-10] MEDS: MELATONIN 3 MG TAB PO PRN (00:36)
[2023-04-10 05:54] LABS: Basophils # (auto) 0.04 K/uL (0.00-0.20); Basophils % (auto) 0.3 %; Eosinophils % (auto) 1.3 %; Hemoglobin 12.4 g/dl (14.0-18.0); Immature Granulocytes # (auto) 0.09 K/uL (0.01-0.20); Immature Granulocytes % (auto) 0.6 %; Lymphocytes # (auto) 1.95 K/uL (1.20-3.40); Lymphocytes % (auto) 12.9 %; Mean Corpuscular Hemoglobin 31.9 pg (25.0-34.0); Mean Corpuscular Hgb Conc 34.4 g/dL (32.0-36.0); Mean Corpuscular Volume 92.5 fL (80.0-100.0); Mean Platelet Volume 10.4 fL (9.4-12.4); Monocytes # (auto) 2.89 K/uL (0.11-0.59); Monocytes % (auto) 19.1 %; Neutrophils # (auto) 9.95 K/uL (1.40-6.50); Neutrophils % (auto) 65.8 %; Platelet Count 228 K/uL (130-400); RDW Coefficient of Variation 13.1 % (11.5-14.5); RDW Standard Deviation 44.2 fL (36.4-46.3); Red Blood Count 3.89 M/uL (4.70-6.10); White Blood Count 15.12 K/ul (4.8-10.8)
[2023-04-10 06:01] LABS: INR 1.9 (0.9-1.1)
[2023-04-10 06:48] LABS: Calcium 9.1 mg/dl (8.6-10.3); Potassium 4.3 mmol/L (3.5-5.1)
[2023-04-10 06:53] LABS: BUN Creatinine Ratio 19.8 (10-20); Creatinine Clr Calc Pharmacy 36.9 ml/min; Est GFR (African American) 40.8 ml/min; Est GFR (Non-African American) 35.2 ml/min
[2023-04-10] MEDS: FOLIC ACID 400 MCG TAB PO SCH (07:57)
[2023-04-10] MEDS: SOTALOL HCL 80 MG TAB PO SCH (07:57)
[2023-04-10] MEDS: SPIRONOLACTONE 12.5 MG TAB PO SCH (07:57)
[2023-04-10] MEDS: FUROSEMIDE 20 MG TAB PO SCH (08:02)
[2023-04-10] MEDS: VITAMIN B COMPLEX TAB PO SCH (08:02)
[2023-04-10] MEDS: MAGNESIUM OXIDE 400 MG TAB PO SCH (08:02)
[2023-04-10] MEDS ORDERED: C E ZINC COPPER OMEGA3S LUT PO SCH (09:00)
[2023-04-10] MEDS ORDERED: FUROSEMIDE INJ 20 MG/2 ML VIAL IV ONE ×2 (11:43→20:43)
--- NOTE | 2023-04-10 11:46 | Hospitalist Progress Note ---
Date of Service April 10, 2023 Assessment & Plan (1) Left knee pain: Plan: acute pseudogout flare? 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 asthma? other etiology? cxr yesterday with pulmonary vascular congestion symptoms during my visit today seemed worse with supine positioning and he had mild JVD? lasix 20mg IV x 1 in addition to his am lasix today repeat cxr later today place on scheduled duonebs although COVID test was negative at admission will repeat a triple PCR swab (COVID/flu/RSV) of note - his problem list mentions restrictive lung disease as well as asthma there is reference to "interstitial nodular lung disease" when I asked him about this he acted surprised about the above diagnoses I cannot find an outpatient pulm note or PFTs to substantiate an asthmatic condition will need to look through old records (3) Deformity of right foot: Plan: records indicate he has brace for this previously worked up by neurology for such - both by out of town neurology as well as Dr David Real, [facility] uncertain if 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 due to pain in knees from pseudogout? other cause? PT, OT evals ortho consult for consideration of arthrocentesis of L knee (5) Ambulatory dysfunction: Plan: Ambulates with a walker at baseline, wheelchair for distances Has seen neurology for polyneuropathy, R foot deformity, etc (last office visit was 09/2022 per scanned records - [facility]) Locally has seen Dr Real Will need to ask family to bring brace for right foot/ankle (6) Idiopathic polyneuropathy: Plan: B12 level wnl neuropathy is chronic has had EMG studies in the past (11/2021 - showed mixed motor/sensory neuropathy of legs -- etiology uncertain) I can't see he has ever been trialed on lyrica or gabapentin (7) History of atrial fibrillation: Plan: Permanent dual AV pacemaker in place; 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 Plan change observation status to full admission status Admission and Anticipated Discharge Date Admission Date: April 09, 2023 Subjective patient lying flat in bed during the visit he c/o bilateral knee pain but worse on the left hurts to move the L knee also c/o bilateral thigh pain the thigh pain is chronic, the knee pain is somewhat new during the visit he was tachypneic with moving around in bed and had an audible panting/wheezing sound I asked him if this was the way he typically breathed and he stated "yes" denied any cough I raised the head of the bed and this led to less tachypnea and dyspnea with respect to his right foot deformity he states it started after having had COVID in 2021 Review of Systems Review of Systems: cv - denies chest pain pulm - denies cough, and surprisingly denies feeling short of breath GI - no pain/nausea/emesis gen - flowsheets on door show he ate well earlier in the day Physical Exam Physical Exam: gen - tachypneic with moving in bed, audible wheeze with moving in bed, no cough; awake, alert, follows commands mouth - MMM neck - ?JVD heart - mechanical valve closure sound, RRR, s1 s2 lungs - mild end-exp wheeze, tachypnea at times, no retractions, no obvious rales abd - soft NT ND BS+ ext - right foot deformity with inversion of entire foot; pulses 2+ b/l; no peripheral edema musculo - left knee with moderate effusion, slight warmth - but no redness; tender to palpation and tender with passive ROM of L knee; right knee without significant effusion and no tenderness with passive ROM; with passive ROM of each hip he c/o tightness and mild discomfort in thighs but no significant tenderness or pain; passive ROM of either hip is decreased neuro - strength b/l arms 5/5; strength b/l hip flexion -- 4-5/5 on left, 5/5 on right; dorsiflexion/plantarflexion of right ankle slightly impaired; dorsiflexion/plantarflexion L ankle 5/5 strength skin - no rash Results & Data Results & Data Vital Signs (Past 12 Hours) Vital Signs Temp Pulse Resp BP Pulse Ox O2 Del Method 04/10/23 08:04 36.3 C L 72 16 151/72 H 94 Room Air Laboratory Results Laboratory Results - last 24 hr 04/09/23 04/09/23 04/09/23 11:53 14:20 14:21 WBC 12.27 H RBC 4.23 L Hgb 13.4 L Hct 39.7 L MCV 93.9 MCH 31.7 MCHC 33.8 RDW Std Deviation 45.2 RDW Coeff of Cresencio 13.2 Plt Count 222 MPV 10.6 Immature Gran % (Auto) 0.6 Neut % (Auto) 62.5 Lymph % (Auto) 13.1 [place] % (Auto) 20.7 Eos % (Auto) 2.9 Baso % (Auto) 0.2 Neut # (Auto) 7.67 H Lymph # (Auto) 1.61 [place] # (Auto) 2.54 H Eos # (Auto) 0.36 Baso # (Auto) 0.02 Immature Gran # (Auto) 0.07 PT Cancelled 19.7 H INR Cancelled 1.9 H Sodium 135 L Potassium 4.3 Chloride 97 L Carbon Dioxide 33 H Anion Gap 5 BUN 32 H Creatinine 1.60 H Est Cr Clr Drug Dosing 39.7 Est GFR ( Amer) 44.6 Est GFR (Non-Af Amer) 38.4 BUN/Creatinine Ratio 20.0 Glucose 93 Calcium 9.9 Magnesium 2.1 Total Bilirubin 0.8 AST 20 ALT 17 Alkaline Phosphatase 73 Troponin I High Sens 29.0 H 30.0 H Total Protein 8.3 Albumin 3.9 Globulin 4.4 H Albumin/Globulin Ratio 0.9 Vitamin B12 684 TSH 3.197 Urine Color Urine Appearance Urine pH Ur Specific [place] Urine Protein Urine Glucose (UA) Urine Ketones Urine Blood Urine Nitrite Urine Bilirubin Urine Urobilinogen Ur Leukocyte Esterase SARS-CoV-2, RNA, NAAT 04/09/23 04/09/23 04/10/23 14:36 14:45 05:40 WBC 15.12 H RBC 3.89 L Hgb 12.4 L Hct 36.0 L MCV 92.5 MCH 31.9 MCHC 34.4 RDW Std Deviation 44.2 RDW Coeff of Cresencio 13.1 Plt Count 228 MPV 10.4 Immature Gran % (Auto) 0.6 Neut % (Auto) 65.8 Lymph % (Auto) 12.9 [place] % (Auto) 19.1 Eos % (Auto) 1.3 Baso % (Auto) 0.3 Neut # (Auto) 9.95 H Lymph # (Auto) 1.95 [place] # (Auto) 2.89 H Eos # (Auto) 0.20 Baso # (Auto) 0.04 Immature Gran # (Auto) 0.09 PT 20.0 H INR 1.9 H Sodium 134 L Potassium 4.3 Chloride 98 Carbon Dioxide 30 Anion Gap 6 BUN 34 H Creatinine 1.72 H Est Cr Clr Drug Dosing 36.9 Est GFR ( Amer) 40.8 Est GFR (Non-Af Amer) 35.2 BUN/Creatinine Ratio 19.8 Glucose 113 H Calcium 9.1 Magnesium Total Bilirubin AST ALT Alkaline Phosphatase Troponin I High Sens Total Protein Albumin Globulin Albumin/Globulin Ratio Vitamin B12 TSH Urine Color Dark Yellow Urine Appearance Clear Urine pH 5.0 Ur Specific [place] 1.015 Urine Protein Negative Urine Glucose (UA) Negative Urine Ketones Negative Urine Blood Negative Urine Nitrite Negative Urine Bilirubin Negative Urine Urobilinogen Negative Ur Leukocyte Esterase Negative SARS-CoV-2, RNA, NAAT NEGATIVE Diagnostic Findings extensive imaging from admission s/p fall reviewed PG Care Time/CCT Total # of Minutes Spent Total Time Spent with Patient: Total time spent is greater than 50% in coordination of care (as documented) at patient's floor/unit and/or counseling patient: Coding Level of Care Code 61091 SUB INP/OBS CARE 3/50MIN Diagnoses Left knee pain M25.562 Dyspnea R06.00 Deformity of right foot M21.961 Fall W19.XXXA Encounter type: initial encounter Ambulatory dysfunction R26.2 Idiopathic polyneuropathy G60.9 History of atrial fibrillation Z86.79 (HFpEF) heart failure with preserved ejection fraction I50.30 Restless leg syndrome G25.81 CKD (chronic kidney disease), stage III N18.30 Chronic kidney disease stage 3 subtype: unspecified whether 3a or 3b History of aortic valve replacement Z95.2 History of mitral valve replacement Z95.2 (4) Fall Encounter type: initial encounter Qualified Code(s): W19.XXXA - Unspecified fall, initial encounter (10) CKD (chronic kidney disease), stage III Chronic kidney disease stage 3 subtype: unspecified whether 3a or 3b Qualified Code(s): N18.30 - Chronic kidney disease, stage 3 unspecified
--- NOTE | 2023-04-10 16:01 | Orthopedic Consultation ---
Date of Service April 10, 2023 Assessment & Plan (1) Left knee pain: Patient was seen and evaluated with Dr. Rodriguez today. Due to the x-rays being negative for any osseous abnormalities. We are going to obtain a joint arthrocentesis to rule out any septic pathologies. Please see left knee arthrocentesis procedure below. Joint fluid was sent out for cell count and crystals. He may continue being weightbearing as tolerated. DVT prophylaxis and medical management per primary. Will see what the cell count and crystal show for further recommendations. Procedure: Left knee aspiration. The left knee was prepped using aseptic technique. Site was marked and prepped with alcohol swabs. Using a 18-gauge needle a a 60 cc syringe, aspiration of the left knee was done yeilding roughly 40 cc of clear yellow fluid. A Band-Aid was placed over the injection site. He tolerated the procedure well and noted immediate relief. History of Present Illness Reason for Consultation: . Left knee pain Requesting Physician: . Attending Physician: Sathya Holder MD . Received in a 61-year-old gentleman who is known to our orthopedic practice for chronic knee pain. He does have a significant medical history with gout. Yesterday unfortunately he was feeling weak in the legs and fell landed on his left side. He came to [facility] emergency department where scans were done which were negative. We were asked to evaluate the left knee with possible aspiration to rule out different etiologies. He notes that his knee pain is around a 5 out of 10 but can be aggravated to a 8 out of 10 with flexion. He denies any other orthopedic concerns at this point. He is on anticoagulation for his atrial fibrillation. Allergies Allergy/AdvReac Type Severity Reaction Status Date / Time Penicillins Allergy Intermediate RASH Verified 01/10/23 11:38 Home Medications Medication Instructions Recorded Confirmed Type furosemide 40 mg tablet 20 mg PO QAM 03/04/19 04/09/23 History sotalol 80 mg tablet 40 mg PO QAM 11/12/19 04/09/23 History acetaminophen 500 mg tablet 1,000 mg (2 x 500 mg) PO BID PRN 07/18/21 04/09/23 Rx (Tylenol Extra Strength) Pain #30 tabs diclofenac sodium 1 % topical gel 4 g EXT QID PRN Pain 11/03/21 04/09/23 History (Voltaren Arthritis Pain) vit C,E,zinc,copper-fskpx5h 250 2 cap PO QAM 11/03/21 04/09/23 History mg-lutein 5 mg-zeaxanthin 1 mg capsule warfarin 2 mg tablet See Rx Instructions .Route 11/11/21 04/09/23 Rx .COMPLEX #0 tabs diaper,brief,adult,disposable #100 ea 02/02/22 01/01/23 Rx ([place] Comfort Protect Adult Diaper X-Large) amoxicillin 500 mg capsule 2,000 mg PO PRN 01/01/23 04/09/23 History atorvastatin 20 mg tablet 20 mg PO HS #90 tabs 01/01/23 04/09/23 Rx magnesium oxide 400 mg PO DAILY 01/01/23 04/09/23 History spironolactone 25 mg tablet 12.5 mg PO DAILY 01/01/23 04/09/23 History vitamin B complex (B 1 tab PO DAILY 01/01/23 04/09/23 History Complex-Vitamin B12 tablet) ropinirole 0.25 mg tablet 0.25 mg PO HS #90 tabs 01/08/23 04/09/23 Rx ascorbic acid (vitamin C) 500 mg 500 mg PO DAILY 04/09/23 04/09/23 History tablet (Vitamin C) folic acid 400 mcg tablet 0.4 mg PO DAILY 04/09/23 04/09/23 History Past Med/Surg History Medical History CKD (chronic kidney disease), stage III Macular degeneration GETS SHOTS IN EYES FOR TREATMENT Q8-10 WEEKS Restless leg syndrome History of cardioversion History of atrial fibrillation Hypertension Aortic valve disorder Atrial flutter BPH with obstruction/lower urinary tract symptoms Coronary artery disease Nonobstructive on [facility] 2012 Ventral hernia Moderate obstructive sleep apnea Pseudogout Surgical History History of left cataract surgery 11/19/2019. propofol given. History of colonoscopy History of tooth extraction History of inguinal hernia repair LEFT X 2 History of vasectomy [facility] History of [facility] AGE 58 [facility] Family History Sister Heart disease Denies family history of Ovarian cancer Prostate cancer Myocardial infarction Breast cancer Colorectal cancer Social History Smoking Status: Never smoker Second Hand Exposure: No; Do You Dip or Chew Tobacco: No; Hx Alcohol Use: Yes Alcohol type: wine Alcohol Intake Frequency: 2-3 x/Week Alcohol Intake Frequency Comment: 2 glasses of wine per week Hx Substance Use: No Preferred Language: Kyrgyz Communication Ability: Effective Visual Impairment: Diminished Hearing Ability: Normal Automobile Designer Required: No Beliefs That Will Affect Care: None marital status: Current Living Situation: Spouse current occupational status: retired 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 Physical Exam .General: no acute distress; non-toxic appearing; well-nourished; cooperative HEENT: normocephalic, atraumatic; no scleral icterus; PERRLA w/ EOMs intact; moist mucus membrane; vision and hearing grossly intact Neck: supple; no JVD; no lymphadenopathy; trachea midline Skin: warm, dry without signs of tenting; no cyanosis; no rashes, bruising, lesions, or erythema noted CV: chest wall NTP; RRR; S1/S2 normal; no murmurs/rubs/gallops; pulses intact and symmetric at radial, DP, and PT Lungs: no acute respiratory distress; symmetrical chest wall expansion; clear breath sounds across all lung buckley w/o adventitious sounds; no wheezing ABD: Soft, NTP; BS present; no rebound/guarding; no ascites Neuro: A&Ox3; normal mood and affect; fluent speech; no focal deficits; decreased sensation in the right LE; symmetric, intact sensation in the UEs B/L Musculoskeletal Focused exam of the left lower extremity reveals a joint effusion to the left knee with no erythema, ecchymosis, or other obvious deformities. Tenderness to palpation diffusely throughout the knee joint. Limited range of motion and strength in all planes due to subjective discomfort. Able to do straight leg raise. Calf soft nontender to palpation. Negative Homans' sign. Results & Data Results & Data Laboratory Results . Diagnostic Findings . PG Care Time/CCT Total # of Minutes Spent Total Time Spent with Patient: Total time spent is greater than 50% in coordination of care (as documented) at patient's floor/unit and/or counseling patient: Coding Level of Care Code 07475 IN/OBS CONSULT LVL 4,60M Diagnoses Left knee pain M25.562
[2023-04-10 16:49] LABS: Appearance Synovial Fluid Slightly Hazy; Color Synovial Fluid Yellow; Mononuclear WBC Synovial 9.1 %; Polynuclear WBC Synovial 90.9 %; RBC Synovial Fluid Auto 5000 /uL; Source Synovial Fluid Knee; WBC Synovial Fluid Auto 16950 /ul (0-200)
[2023-04-10] MEDS: WARFARIN SOD 4 MG TAB PO SCH (17:06)
--- NOTE | 2023-04-10 19:00 | XRay Report ---
XR chest 2V PA/lateral HISTORY: dyspnea, wheezing, CHF?? COMPARISON: Chest and left rib series 04/09/2023. FINDINGS: No pneumothorax. There are low lung volumes. There is a small right pleural effusion which has developed in the interval. There is perihilar interstitial/vascular thickening which has progress ed. This is consistent with mild pulmonary edema. Perihilar hazy airspace opacities is likely due to the pulmonary edema. The heart remains enlarged. There are poststernotomy changes, left-sided pacemak er, and a cardiac valve prosthesis again noted. IMPRESSION: 1. Cardiomegaly and mild pulmonary edema. This has progressed in the interval. 2. Small right pleural effusion. 3. Perihilar hazy airspace opacities is likely due to the pulmonary edema. A superimposed pneumonia w ould be difficult to exclude. ACT 112: Negative or not required by law. Electronically signed by: Andrea Sahu M.D. 04/10/2023 6:59 PM
[2023-04-10] MEDS: ALBUT/IPRATROP 3MG/0.5MG NEB 3 ML VIAL NEB SCH (19:59)
[2023-04-10] MEDS: ATORVASTATIN 20 MG TAB PO SCH (20:28)
[2023-04-10] MEDS: rOPINIRole HCL 0.25 MG TABLET PO SCH (20:28)
[2023-04-10] MEDS: cefTRIAXone SODIUM 2,000 MG in DEXTROSE 5 % MINI-B 50 ML IV SCH (21:40)
[2023-04-10] MEDS: ACETAMINOPHEN 325 MG TAB PO PRN (21:45)
[2023-04-10] MEDS: DAPTOmycin 500 MG in SYRINGE 0 ML IV SCH (22:00)
[2023-04-10 22:21] LABS: Influenza A virus by PCR Negative (Neg); Influenza B virus by PCR Negative (Neg); RSV by PCR Negative (Neg); SARS CoV2 RNA(COVID-19) Ceph NEGATIVE (Negative)
--- NOTE | 2023-04-10 22:33 | CT Scan Report ---
Exam(s): CT HEAD Without Contrast EXAM: CT Head Without Intravenous Contrast CLINICAL HISTORY: Reason for exam: change in mental status. TECHNIQUE: Axial computed tomography images of the head/brain without intravenous contrast. Automated exposure control was utilized for the study. A dose lowering technique was utilized adhering to the principles of ALARA. COMPARISON: CT head 04/09/2023. FINDINGS: Brain: Global parenchymal volume loss with chronic microvascular ischemic changes. No hemorrhage. Ventricles: No ventriculomegaly. Bones/joints: Unremarkable. No acute fracture. Soft tissues: Unremarkable. Sinuses: Unremarkable as visualized. Mastoid air cells: Unremarkable as visualized. No mastoid effusion. Orbits: Bilateral lens replacement. IMPRESSION: 1. No intracranial hemorrhage or other acute intracranial abnormality identified. 2. Global parenchymal volume loss with chronic microvascular ischemic changes. Electronically signed by: Hilario Grayson MD 04/10/23 22:32 PM
--- NOTE | 2023-04-10 22:41 | CT Scan Report ---
Exam(s): CT CHEST Without Contrast EXAM: CT Chest Without Intravenous Contrast CLINICAL HISTORY: Reason for exam: worsening respiratory status. TECHNIQUE: Axial computed tomography images of the chest without intravenous contrast. Automated exposure control was utilized for the study. A dose lowering technique was utilized adhering to the principles of ALARA. COMPARISON: CT chest 07/13/2021. FINDINGS: Lungs: See below. Pleural space: Small right pleural effusion. No pneumothorax. Heart: Cardiomegaly. Postsurgical change from prior mitral valve replacement. No significant pericardial effusion. No significant coronary artery calcifications. Mediastinum: Bulky partially calcified mediastinal and hilar lymph nodes, presumably related to granulomatous disease, unchanged from prior examination. There is associated compression of the bronchi with distal atelectasis. Bones/joints: Degenerative changes in the spine and shoulders. No acute fracture. No dislocation. Soft tissues: Unremarkable. Vasculature: Extensive atherosclerotic calcification of the inupiat coronary arteries status post coronary artery bypass surgery. No thoracic aortic aneurysm. Lymph nodes: See above. Tubes, lines and devices: Cardiac pacemaker. IMPRESSION: 1. Bulky calcified lymphadenopathy compressing the bronchi resulting in distal atelectasis. Superimposed infection not excluded. Clinical correlation is recommended. 2. Small right pleural effusion. Electronically signed by: Hilario Grayson MD 04/10/23 22:40 PM
[2023-04-11] MEDS: ACETAMINOPHEN 325 MG TAB PO PRN ×2 (03:24→07:16)
[2023-04-11 05:22] LABS: Hematocrit (blood only) 35.7 % (42.0-52.0); Hemoglobin 12.5 g/dl (14.0-18.0); Mean Corpuscular Hemoglobin 32.1 pg (25.0-34.0); Mean Corpuscular Volume 91.8 fL (80.0-100.0); Mean Platelet Volume 10.6 fL (9.4-12.4); Platelet Count 235 K/uL (130-400); RDW Standard Deviation 43.7 fL (36.4-46.3); Red Blood Count 3.89 M/uL (4.70-6.10); White Blood Count 14.79 K/ul (4.8-10.8)
[2023-04-11 05:37] LABS: BUN Creatinine Ratio 18.5 (10-20); Creatinine Clr Calc Pharmacy 32.6 ml/min; Est GFR (African American) 35.1 ml/min; Est GFR (Non-African American) 30.3 ml/min; Potassium 3.7 mmol/L (3.5-5.1)
[2023-04-11 05:54] LABS: INR 1.8 (0.9-1.1); Prothrombin Time 18.8 Seconds (9.0-12.0)
[2023-04-11 06:06] LABS: Basophils # (auto) 0.03 K/uL (0.00-0.20); Basophils % (auto) 0.2 %; Eosinophils # (auto) 0.06 K/uL (0.00-0.50); Eosinophils % (auto) 0.4 %; Immature Granulocytes # (auto) 0.09 K/uL (0.01-0.20); Immature Granulocytes % (auto) 0.6 %; Lymphocytes # (auto) 1.68 K/uL (1.20-3.40); Lymphocytes % (auto) 11.4 %; Monocytes # (auto) 3.26 K/uL (0.11-0.59); Neutrophils # (auto) 9.67 K/uL (1.40-6.50); Neutrophils % (auto) 65.4 %; Polychromasia 1+
[2023-04-11] MEDS: ALBUT/IPRATROP 3MG/0.5MG NEB 3 ML VIAL NEB SCH ×4 (07:27→20:07)
[2023-04-11] MEDS: DOXYCYCLINE HYCLATE 100 MG in DEXTROSE 5% MINI-B 100 ML IV SCH ×2 (09:58→22:54)
[2023-04-11] MEDS: DICLOFENAC SOD 1% GEL 100 GM TUBE EXT PRN (09:59)
[2023-04-11] MEDS: SOTALOL HCL 80 MG TAB PO SCH (10:01)
[2023-04-11] MEDS: VITAMIN B COMPLEX TAB PO SCH (10:02)
[2023-04-11] MEDS: MAGNESIUM OXIDE 400 MG TAB PO SCH (10:02)
[2023-04-11] MEDS: FOLIC ACID 400 MCG TAB PO SCH (10:03)
--- NOTE | 2023-04-11 12:04 | Orthopedic Progress Note ---
Date of Service April 11, 2023 Assessment & Plan (1) Left knee pain: After reviewing the synovial fluid and crystal analysis, it was only positive for leukocytosis which was 16,950 with no signs of crystals. More likely this is secondary to an inflammatory response most likely secondary to his fall. He did note since the aspiration, his knee pain is improving. From an orthopedic standpoint, we may proceed with conservative treatment to the left knee. I would recommend working with physical therapy and Occupational Therapy to work on range of motion and strengthening exercises. If his knee pain begins to worsen again, we did discuss a possible steroid injection. At this point, he would like to wait to see how the knee feels in a couple days. He may follow-up with us on an outpatient basis if he is to be discharged to continue to follow for his left knee pain. Please feel free to Baker text or reach out to [facility] orthopedics if the patient's situation is to change. Subjective . Musa was evaluated today on rounds in no apparent distress. He notes that his left knee is doing better since it was drained yesterday. Does note a little bit of soreness but he contributes this secondary to his fall that he had. Synovial fluid cell count and crystals were read back today with the only abnormality is 16,000 WBC which could be secondary to inflammatory response. He has not got up with physical therapy at this moment. He states that they may try again tomorrow. He denies any other concerns at this point. Review of Systems All systems reviewed & are unremarkable except as noted in HPI & below. Physical Exam .Focused exam of the left lower extremity reveals a slight joint effusion to the left knee s/p aspiration with no erythema, ecchymosis, or other obvious deformities. Tenderness to palpation diffusely throughout the knee joint but improved. Limited range of motion and strength in all planes due to subjective discomfort and soreness. Able to do straight leg raise. Calf soft nontender to palpation. Negative Homans' sign. Results & Data Results & Data Laboratory Results . Diagnostic Findings . PG Care Time/CCT Total # of Minutes Spent Total Time Spent with Patient: Total time spent is greater than 50% in coordination of care (as documented) at patient's floor/unit and/or counseling patient: Coding Level of Care Code 06225 SUB INP/OBS CARE 2/35MIN Diagnoses Left knee pain M25.562
--- NOTE | 2023-04-11 14:44 | Hospitalist Progress Note ---
Date of Service April 11, 2023 Assessment & Plan (1) Dyspnea: Plan: acute/chronic diastolic CHF? don't suspect such - I diuresed Mr Zhou yesterday with 2 doses of IV lasix and there is no clinical change today; further, his creatinine jumped to 1.9 overnight hold diuretics today and allow creatinine to come down CT chest with bronchial compression from large, bulky, calcified lymph nodes - contributing to clinical picture? asthma? infectious etiology given the fevers? other etiology? 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 pseudogout -- but the crystal analysis falsely negative? other? either way it is improved follow culture (3) Fever: Plan: etiology? left knee - doubtful, WBCs <20,000 (typically septic knee the WBCs are much higher, often approaching 100,000) viral? bacterial? pulmonary source? 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 due to pain in knees leading to leg instability? brewing infectious process? other? PT, OT evals (6) Ambulatory dysfunction: Plan: Ambulates with a walker at baseline, wheelchair for distances Has seen neurology for polyneuropathy, R foot deformity, etc (last office visit was 09/2022 per scanned records - [facility]) Locally has seen Dr Real see above Re: amy (7) Idiopathic polyneuropathy: Plan: B12 level wnl neuropathy is chronic has had EMG studies in the past (11/2021 - showed mixed motor/sensory neuropathy of legs -- etiology uncertain) I can't see he has ever been trialed on lyrica or gabapentin (8) History of atrial fibrillation: Plan: Permanent dual AV pacemaker in place; 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 Stable; rate controlled PT/INR 1.9 on arrival INR today 1.8 Continue Coumadin; if INR does not trend to 2.5-3.5 goal range will bridge with IV heparin Continue sotalol obtain pacemaker interrogation while here INR am (9) (HFpEF) heart failure with preserved ejection fraction: Plan: records indicate he follows with [facility] attempts at diuresis overnight - no significant change in his clinical status - and creatinine simply julio hold PO diuretics today (10) Restless leg syndrome: Plan: Continue ropinirole (11) CKD (chronic kidney disease), stage III: Plan: baseline Cr of ~1.4 Cr today 1.9 BMP am see above (12) History of aortic valve replacement: Plan[facility] to bicuspid AV) I am assuming his INR goal is 2.5 to 3.5? 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 (14) Dysphagia: Plan: will ask speech therapy to see in consult relatively new problem in the last few weeks is aspiration contributing to his dyspnea? Admission and Anticipated Discharge Date Admission Date: April 10, 2023 Subjective events of overnight reviewed developed worsening confusion along with high fevers overnight was more dyspneic through the night as well in light of the above events the night resident physician transferred Mr Zhou to telemetry for closer observation blood cx's obtained IV abx started empirically I called the lab and they have synovial fluid available to culture; culture added on pt does report his L knee feels better today amazingly he is not aware of his breathing pattern, tachypnea, etc was at bedside today she reports the following - * frequent throat clearing and coughing with meals for the last 2-3 weeks * worsening breathing (audible wheezing/noisy breathing) for the last few weeks if not longer * she recalls that he saw Dr Narayanan in the past and was told he likely had fungal disease of the lungs when he was in the many years ago; he does not follow regularly with pulmonary * patient has not been wearing the R foot brace - it fits on him, but it causes pain, so he rarely is using such Review of Systems Review of Systems: gen - "I feel good"; was not aware of fevers overnight cv - no chest pain pulm - no cough, just noisy breathing and some dyspnea GI - no nausea/emesis/abd pain neuro - baseline neuropathy of both legs - unchanged pain Physical Exam Physical Exam: gen - tachypneic, audible inspiratory & expiratory wheeze; no stridor; mild retractions; despite the above he denies feeling short of breath; awake, alert; looks very similar to yesterday mouth - MMM neck - no JVD today heart - mechanical valve closure sound, RRR, s1 s2 lungs - very course/noisy inspiratory phase; mild end-exp wheeze, tachypnea, subtle subcostal retractions; no rales abd - soft NT ND BS+ ext - right foot deformity with inversion of entire foot (baseline); pulses 2+ b/l; no peripheral edema musculo - left knee with mild effusion, slight warmth - nontender to palpation - overall improved today skin - no rash psych - awake, alert - mildly confused - similar to yesterday Results & Data Results & Data Vital Signs (Past 12 Hours) Vital Signs Temp Pulse Pulse Resp BP Pulse Ox O2 Del Method 04/11/23 14:00 67 18 97 Room Air 04/11/23 11:23 36.7 C 67 16 143/78 H 93 Room Air 04/11/23 10:46 68 18 98 Room Air 04/11/23 10:00 Room Air 04/11/23 07:58 36.6 C 71 16 133/70 93 Room Air 04/11/23 07:28 76 18 92 Room Air 04/11/23 07:00 69 04/11/23 05:15 37.6 C H 04/11/23 03:37 38 C H 74 22 143/70 H 93 Room Air Laboratory Results Laboratory Results 04/10/23 04/10/23 04/11/23 20:57 Unknown 00:45 WBC RBC Hgb Hct MCV MCH MCHC RDW Std Deviation RDW Coeff of Cresencio Plt Count MPV Immature Gran % (Auto) Neut % (Auto) Lymph % (Auto) [place] % (Auto) Eos % (Auto) Baso % (Auto) Neut # (Auto) Lymph # (Auto) [place] # (Auto) Eos # (Auto) Baso # (Auto) Immature Gran # (Auto) Polychromasia PT INR Sodium Potassium Chloride Carbon Dioxide Anion Gap BUN Creatinine Est Cr Clr Drug Dosing Est GFR ( Amer) Est GFR (Non-Af Amer) BUN/Creatinine Ratio Glucose Calcium Fluid Comment Synovial Source Knee Synovial Color Yellow Synovial Appearance Slightly Hazy Synovial WBC (Auto) 76291 H Synovial RBC (Auto) 5000 Synovial Polynuclear % 90.9 Synovial Mononuclear % 9.1 Synovial Crystals Nasal Screen MRSA (PCR) Negative Adenovirus (PCR) B. pertussis DNA (PCR) B.parapertussis DNA PCR C. pneumoniae DNA (PCR) Coronavirus OC43 (PCR) Coronavirus HKU1 (PCR) Coronavirus 229E (PCR) SARS-CoV-2 (PCR) NEGATIVE Coronavirus NL63 (PCR) Human Metapneumovir PCR Influenza Type A (PCR) Negative Influenza Type B (PCR) Negative M. pneumoniae (PCR) Parainfluenza 1 (PCR) Parainfluenza 2 (PCR) Parainfluenza 3 (PCR) Parainfluenza 4 (PCR) RSV (RT-PCR) Negative RSV (PCR) Entero/Rhino (PCR) 04/11/23 04/11/23 04:51 Unknown WBC 14.79 H RBC 3.89 L Hgb 12.5 L Hct 35.7 L MCV 91.8 MCH 32.1 MCHC 35.0 RDW Std Deviation 43.7 RDW Coeff of Cresencio 13.0 Plt Count 235 MPV 10.6 Immature Gran % (Auto) 0.6 Neut % (Auto) 65.4 Lymph % (Auto) 11.4 [place] % (Auto) 22.0 Eos % (Auto) 0.4 Baso % (Auto) 0.2 Neut # (Auto) 9.67 H Lymph # (Auto) 1.68 [place] # (Auto) 3.26 H Eos # (Auto) 0.06 Baso # (Auto) 0.03 Immature Gran # (Auto) 0.09 Polychromasia 1+ PT 18.8 H INR 1.8 H Sodium 135 L Potassium 3.7 Chloride 99 Carbon Dioxide 28 Anion Gap 8 BUN 36 H Creatinine 1.95 H Est Cr Clr Drug Dosing 32.6 Est GFR ( Amer) 35.1 Est GFR (Non-Af Amer) 30.3 BUN/Creatinine Ratio 18.5 Glucose 120 H Calcium 9.0 Fluid Comment Synovial Source Synovial Color Synovial Appearance Synovial WBC (Auto) Synovial RBC (Auto) Synovial Polynuclear % Synovial Mononuclear % Synovial Crystals Nasal Screen MRSA (PCR) Adenovirus (PCR) Not Detected B. pertussis DNA (PCR) Not Detected B.parapertussis DNA PCR Not Detected C. pneumoniae DNA (PCR) Not Detected Coronavirus OC43 (PCR) Not Detected Coronavirus HKU1 (PCR) Not Detected Coronavirus 229E (PCR) Not Detected SARS-CoV-2 (PCR) Not Detected Coronavirus NL63 (PCR) Not Detected Human Metapneumovir PCR Not Detected Influenza Type A (PCR) Not Detected Influenza Type B (PCR) Not Detected M. pneumoniae (PCR) Not Detected Parainfluenza 1 (PCR) Not Detected Parainfluenza 2 (PCR) Not Detected Parainfluenza 3 (PCR) Not Detected Parainfluenza 4 (PCR) Not Detected RSV (RT-PCR) RSV (PCR) Not Detected Entero/Rhino (PCR) Not Detected PG Care Time/CCT Total # of Minutes Spent Total Time Spent with Patient: Total time spent is greater than 50% in coordination of care (as documented) at patient's floor/unit and/or counseling patient: Coding Level of Care Code 77781 SUB INP/OBS CARE 3/50MIN Diagnoses Dyspnea R06.00 Left knee pain M25.562 Fever R50.9 Fever type: unspecified Deformity of right foot M21.961 Fall W19.XXXA Encounter type: initial encounter Ambulatory dysfunction R26.2 Idiopathic polyneuropathy G60.9 History of atrial fibrillation Z86.79 (HFpEF) heart failure with preserved ejection fraction I50.30 Restless leg syndrome G25.81 CKD (chronic kidney disease), stage III N18.30 Chronic kidney disease stage 3 subtype: unspecified whether 3a or 3b History of aortic valve replacement Z95.2 History of mitral valve replacement Z95.2 Dysphagia R13.10 (3) Fever Fever type: unspecified Qualified Code(s): R50.9 - Fever, unspecified (5) Fall Encounter type: initial encounter Qualified Code(s): W19.XXXA - Unspecified fall, initial encounter (11) CKD (chronic kidney disease), stage III Chronic kidney disease stage 3 subtype: unspecified whether 3a or 3b Qualified Code(s): N18.30 - Chronic kidney disease, stage 3 unspecified
--- NOTE | 2023-04-11 15:40 | Pulmonary Consultation ---
Date of Consultation April 11, 2023 Assessment & Plan (1) Granulomatous lung disease: (2) Dyspnea: Plan Impression: 87-year-old male with prior history of chronic granulomatous disease and calcified mediastinal lymph nodes. He presented with knee pain and gait instability but was found to have some respiratory issues while here which appear to be chronic and stable at baseline. Recommendations: 1. Prior granulomatous disease: Patient CT scan was independently reviewed and compared to prior CT. The calcified lymph nodes and pleural effusion appear chronic. There are no new suspicious pulmonary nodules or adenopathy that is concerning. No indication for continued radiographic surveillance. The calcified lymph nodes certainly can cause compression of the airways however there is not much to be done for this at this point in time and less the lymph nodes eroded into the bronchi which is unlikely to recur in this 87-year-old gentleman. 2. Shortness of breath and wheezing: Prior PFTs not available to review. I will provide him a trial of an inhaler to see if it offers him a clinical benefit. If not, I do not think it needs to be continued in the long-term. I recommended to the primary service that repeating his echocardiogram and cardiology consultation in light of his significant cardiac history may be of benefit. Could consider outpatient PFTs although again I think in light of his multiple issues there is unlikely going to be actionable data. Recommend assessment of procalcitonin and a bio fire to assess for potential viral etiologies given his low-grade fever. He has been started on Rocephin, doxycycline and daptomycin for skin and soft tissue infection which would be more than adequate coverage for pulmonary issue. I believe the airspace opacities are likely atelectatic rather than infectious. 3. Patient is pending placement at rehab for his lower extremity issues. I agree with the plan. 4. Sleep disordered breathing: The patient has declined CPAP on multiple occasions. No indication for revisiting this issue currently. I think he can follow-up with Dr. Narayanan in the outpatient setting. History of Present Illness Attending Physician: Sathya Holder MD History of Present Illness Asked by hospitalist to evaluate this patient with respiratory issues. History is obtained from discussion with the patient as well as review the electronic medical record. The patient is an 87-year-old male he is established with Dr. Narayanan in the outpatient setting for prior granulomatous disease. He also has sleep disordered breathing but has been unable to tolerate CPAP in the past. He was admitted to the facility 04/09/2023 with complaints of knee pain and gait instability secondary to his peripheral neuropathy. This had become so significant that he had a ground-level fall. He has been seen by orthopedics and underwent arthrocentesis which revealed inflammatory process. He is been seen by physical therapy and Occupational Therapy and is planning on going to rehab to see if he can improve his gait stability. During the course of his evaluation here, the admitting service noted some paradoxical breathing when the patient was lying supine. He also notes that he has experienced some wheezing and shortness of breath although he states this is not really different from his baseline and has been present like this for several months. He has a significant cardiac history and is followed by Dr. Toni Painter in the outpatient setting. He apparently had an echocardiogram performed about 2 months ago. We do not have those results available to review but the patient believes that it was stable. He has [address] He denies any chest pain. He is not had any significant lower extremity edema. He denies any cough or sputum production. He has experienced mild low- grade fever over the last 24 hours. Allergies Allergy/AdvReac Type Severity Reaction Status Date / Time Penicillins Allergy Intermediate RASH Verified 01/10/23 11:38 Home Medications Medication Instructions Recorded Confirmed Type furosemide 40 mg tablet 20 mg PO QAM 03/04/19 04/09/23 History sotalol 80 mg tablet 40 mg PO QAM 11/12/19 04/09/23 History acetaminophen 500 mg tablet 1,000 mg (2 x 500 mg) PO BID PRN 07/18/21 04/09/23 Rx (Tylenol Extra Strength) Pain #30 tabs diclofenac sodium 1 % topical gel 4 g EXT QID PRN Pain 11/03/21 04/09/23 History (Voltaren Arthritis Pain) vit C,E,zinc,copper-eumaq1t 250 2 cap PO QAM 11/03/21 04/09/23 History mg-lutein 5 mg-zeaxanthin 1 mg capsule warfarin 2 mg tablet See Rx Instructions .Route 11/11/21 04/09/23 Rx .COMPLEX #0 tabs diaper,brief,adult,disposable #100 ea 02/02/22 01/01/23 Rx ([place] [employer] Comfort Protect Adult Diaper X-Large) amoxicillin 500 mg capsule 2,000 mg PO PRN 01/01/23 04/09/23 History atorvastatin 20 mg tablet 20 mg PO HS #90 tabs 01/01/23 04/09/23 Rx magnesium oxide 400 mg PO DAILY 01/01/23 04/09/23 History spironolactone 25 mg tablet 12.5 mg PO DAILY 01/01/23 04/09/23 History vitamin B complex (B 1 tab PO DAILY 01/01/23 04/09/23 History Complex-Vitamin B12 tablet) ropinirole 0.25 mg tablet 0.25 mg PO HS #90 tabs 01/08/23 04/09/23 Rx ascorbic acid (vitamin C) 500 mg 500 mg PO DAILY 04/09/23 04/09/23 History tablet (Vitamin C) folic acid 400 mcg tablet 0.4 mg PO DAILY 04/09/23 04/09/23 History Patient History Medical History CKD (chronic kidney disease), stage III Macular degeneration GETS SHOTS IN EYES FOR TREATMENT Q8-10 WEEKS Restless leg syndrome History of cardioversion History of atrial fibrillation Hypertension Aortic valve disorder Atrial flutter BPH with obstruction/lower urinary tract symptoms Coronary artery disease Nonobstructive on [facility] 2012 Ventral hernia Moderate obstructive sleep apnea Pseudogout Surgical History History of left cataract surgery 11/19/2019. propofol given. History of colonoscopy History of tooth extraction History of inguinal hernia repair LEFT X 2 History of vasectomy [facility] History of [facility] AT AGE 58 [facility] Family History Sister Heart disease Denies family history of Ovarian cancer Prostate cancer Myocardial infarction Breast cancer Colorectal cancer Social History Smoking Status: Never smoker Second Hand Exposure: No; Do You Dip or Chew Tobacco: No; Hx Alcohol Use: Yes Alcohol type: wine Alcohol Intake Frequency: 2-3 x/Week Alcohol Intake Frequency Comment: 2 glasses of wine per week Hx Substance Use: No Preferred Language: Luxembourgish Communication Ability: Effective Visual Impairment: Diminished Hearing Ability: Normal Crime Lab Technician Required: No Beliefs That Will Affect Care: None marital status: Current Living Situation: Spouse current occupational status: retired 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 No additions or deletions Physical Exam Constitutional: WD/WN, vitals as above well developed and well nourished; no acute distress Neck: trachea midline, no thyromegaly Respiratory: normal respiratory effort, lungs clear to auscultation Cardiovascular: Rate/Rhythm: regular rate and regular rhythm Heart Sounds: + murmur (2 out of 6 holosystolic best auscultated at the second left intercostal) Vessels: no JVD Gastrointestinal (Abdomen): normal bowel sounds, soft, nontender, no hepatosplenomegaly Musculoskeletal: Head/Neck/Chest: normocephalic and head atraumatic Extremities: + foot abnormality Skin: no rashes, warm and dry Neurologic: patellar DTR's 2+ bilat, sensation intact CN's II-XI intact bilaterally and moves all extremities Motor/Sensory: no tremor Cranial Nerves: normal accommodation, normal facial strength, tongue midline and sy mmetric palate elevation Coordination: normal [id number] test Psychiatric: A+Ox3, euthymic affect Results & Data Results & Data Vital Signs (Past 12 Hours) Vital Signs Temp Pulse Pulse Resp BP Pulse Ox O2 Del Method 04/11/23 14:00 67 18 97 Room Air 04/11/23 11:23 36.7 C 67 16 143/78 H 93 Room Air 04/11/23 10:46 68 18 98 Room Air 04/11/23 10:00 Room Air 04/11/23 07:58 36.6 C 71 16 133/70 93 Room Air 04/11/23 07:28 76 18 92 Room Air 04/11/23 07:00 69 04/11/23 05:15 37.6 C H Critical Care Results & Data Vital Signs (Past 12 Hours) Vital Signs Temp Pulse Pulse Resp BP Pulse Ox O2 Del Method 04/11/23 14:00 67 18 97 Room Air 04/11/23 11: 36.7 C 67 16 143/78 H 93 Room Air 04/11/23 10:46 68 18 98 Room Air 04/11/23 10:00 Room Air 04/11/23 07:58 36.6 C 71 16 133/70 93 Room Air 04/11/23 07:28 76 18 92 Room Air 04/11/23 07:00 69 04/11/23 05:15 37.6 C H Lab & Micro Results (Past 24 Hours) RBC 3.89 M/uL (4.70-6.10) L 04/11/23 WBC 14.79 K/ul (4.8-10.8) H 04/11/23 Hgb 12.5 g/dl (14.0-18.0) L 04/11/23 Hct 35.7 % (42.0-52.0) L 04/11/23 MCV 91.8 fL (80.0-100.0) 04/11/23 MCH 32.1 pg (25.0-34.0) 04/11/23 MCHC 35.0 g/dL (32.0-36.0) 04/11/23 RDW Standard Deviation 43.7 fL (36.4-46.3) 04/11/23 RDW Coefficient of Variation 13.0 % (11.5-14.5) 04/11/23 Plt Count 235 K/uL (130-400) 04/11/23 MPV 10.6 fL (9.4-12.4) 04/11/23 Neutrophils (%) (Auto) 65.4 % 04/11/23 Lymphocytes (%) (Auto) 11.4 % 04/11/23 Monocytes # (Auto) 3.26 K/uL (0.11-0.59) H 04/11/23 Eosinophils # (Auto) 0.06 K/uL (0.00-0.50) 04/11/23 Immature Granulocyte % (Auto) 0.6 % 04/11/23 Neutrophils # (Auto) 9.67 K/uL (1.40-6.50) H 04/11/23 Lymphocytes # (Auto) 1.68 K/uL (1.20-3.40) 04/11/23 Monocytes # (Auto) 3.26 K/uL (0.11-0.59) H 04/11/23 Eosinophils # (Auto) 0.06 K/uL (0.00-0.50) 04/11/23 Basophils # (Auto) 0.03 K/uL (0.00-0.20) 04/11/23 Immature Granulocyte # (Auto) 0.09 K/uL (0.01-0.20) 3 Polychromasia 1+ 04/11/23 Na 135 mmol/L (136-145) L 04/11/23 K 3.7 mmol/L (3.5-5.1) 04/11/23 Cl 99 mmol/L (98-107) 04/11/23 CO2 28 mmol/L (21-32) 04/11/23 Anion Gap 8 (3-11) 04/11/23 BUN 36 mg/dl (6-23) H 04/11/23 Creatinine 1.95 mg/dl (0.6-1.4) H 04/11/23 Estimated GFR ( Amer) 35.1 ml/min 04/11/23 Estimated GFR (Non-Af Amer) 30.3 ml/min 04/11/23 BUN/Creatinine Ratio 18.5 (10-20) 04/11/23 Glu 120 mg/dl (70-99(Fasting)) H 04/11/23 Ca 9.0 mg/dl (8.6-10.3) 04/11/23 Calcium Level 9.0 mg/dl (8.6-10.3) 04/11/23 04:51 Prothromb Time International Ratio 1.8 (0.9-1.1) H 04/11/23 04 :51 Microbiology 04/10/23 Unknown Gram Stain - Final Synovial Fluid Diagnostic Findings (Past 24 Hours) Chest X-Ray 04/10/23 18:11 XR chest 2V PA/lateral HISTORY: dyspnea, wheezing, CHF?? COMPARISON: Chest and left rib series 04/09/2023. FINDINGS: No pneumothorax. There are low lung volumes. There is a small right pleural effusion which has developed in the interval. There is perihilar interstitial/vascular thickening which has progressed. This is consistent with mild pulmonary edema. Perihilar hazy airspace opacities is likely due to the pulmonary edema. The heart remains enlarged. There are poststernotomy changes, left-sided pacemaker, and a cardiac valve prosthesis again noted. IMPRESSION: 1. Cardiomegaly and mild pulmonary edema. This has progressed in the interval. 2. Small right pleural effusion. 3. Perihilar hazy airspace opacities is likely due to the pulmonary edema. A superimposed pneumonia would be difficult to exclude. ACT 112: Negative or not required by law. Electronically signed by: Andrea Sahu M.D. 04/10/2023 6:[address] 04/10/23 20:44 Exam(s): CT HEAD Without Contrast EXAM: CT Head Without Intravenous Contrast CLINICAL HISTORY: Reason for exam: change in mental status. TECHNIQUE: Axial computed tomography images of the head/brain without intravenous contrast. Automated exposure control was utilized for the study. A dose lowering technique was utilized adhering to the principles of ALARA. COMPARISON: CT head 04/09/2023. FINDINGS: Brain: Global parenchymal volume loss with chronic microvascular ischemic changes. No hemorrhage. Ventricles: No ventriculomegaly. Bones/joints: Unremarkable. No acute fracture. Soft tissues: Unremarkable. Sinuses: Unremarkable as visualized. Mastoid air cells: Unremarkable as visualized. No mastoid effusion. Orbits: Bilateral lens replacement. IMPRESSION: 1. No intracranial hemorrhage or other acute intracranial abnormality identified. 2. Global parenchymal volume loss with chronic microvascular ischemic changes. Electronically signed by: Hilario Grayson MD 04/10/23 22:[address] 04/10/23 20:50 Exam(s): CT CHEST Without Contrast EXAM: CT Chest Without Intravenous Contrast CLINICAL HISTORY: Reason for exam: worsening respiratory status. TECHNIQUE: Axial computed tomography images of the chest without intravenous contrast. Automated exposure control was utilized for the study. A dose lowering technique was utilized adhering to the principles of ALARA. COMPARISON: CT chest 07/13/2021. FINDINGS: Lungs: See below. Pleural space: Small right pleural effusion. No pneumothorax. Heart: Cardiomegaly. Postsurgical change from prior mitral valve replacement. No significant pericardial effusion. No significant coronary artery calcifications. Mediastinum: Bulky partially calcified mediastinal and hilar lymph nodes, presumably related to granulomatous disease, unchanged from prior examination. There is associated compression of the bronchi with distal atelectasis. Bones/joints: Degenerative changes in the spine and shoulders. No acute fracture. No dislocation. Soft tissues: Unremarkable. Vasculature: Extensive atherosclerotic calcification of the [place] coronary arteries status post coronary artery bypass surgery. No thoracic aortic aneurysm. Lymph nodes: See above. Tubes, lines and devices: Cardiac pacemaker. IMPRESSION: 1. Bulky calcified lymphadenopathy compressing the bronchi resulting in distal atelectasis. Superimposed infection not excluded. Clinical correlation is recommended. 2. Small right pleural effusion. Electronically signed by: Hilario Grayson MD 04/10/23 22:40 PM I & O Totals 24 Hours 04/10/23 04/11/23 04/12/23 06:59 06:59 06:59 Intake Total 640 / 640 100 / 100 Output Total 370 / 370 200 / 200 Balance 270 / 270 -100 / -100 Cumulative 04/09/23 10:12 thru 04/11/23 15:06 Intake Total 740 Output Total 570 Balance 170 RT Ventilator Mngmt (Last Documented) Ventilator Ordered Settings Respiratory Rate 18 04/11/23 14:00 Ventilator - PT Measurements Respiratory Rate 18 PG Care Time/CCT Total # of Minutes Spent Total Time Spent with Patient: Total time spent is greater than 50% in coordination of care (as documented) at patient's floor/unit and/or counseling patient: Coding Level of Care Code 72668 INT INP/OBS CARE 375MIN Diagnoses Granulomatous lung disease J84.10 Dyspnea R06.00
[2023-04-11 16:32] LABS: Adenovirus PCR Not Detected (NotDetected); Bordetella parapertussis PCR Not Detected (NotDetected); Bordetella pertussis PCR Not Detected (NotDetected); Chlamydia pneumoniae PCR Not Detected (NotDetected); Coronavirus 229E PCR Not Detected (NotDetected); Coronavirus CoV-2 (COVID19)PCR Not Detected (NotDetected); Coronavirus HKU1 PCR Not Detected (NotDetected); Coronavirus NL63 PCR Not Detected (NotDetected); Coronavirus OC43PCR Not Detected (NotDetected); Human Metapneumovirus PCR Not Detected (NotDetected); Influenza A PCR Not Detected (NotDetected); Influenza B PCR Not Detected (NotDetected); Mycoplasma pneumoniae PCR Not Detected (NotDetected); Parainfluenza Virus 1 PCR Not Detected (NotDetected); Parainfluenza Virus 2 PCR Not Detected (NotDetected); Parainfluenza Virus 3 PCR Not Detected (NotDetected); Parainfluenza Virus 4 PCR Not Detected (NotDetected); Respiratory Syncytial VirusPCR Not Detected (NotDetected); Rhinovirus/Enterovirus PCR Not Detected (NotDetected)
[2023-04-11] MEDS: WARFARIN SOD 6 MG TAB PO SCH (16:49)
[2023-04-11] MEDS: UMECLIDINIUM/VILANTEROL 62.5/25MCG 7 PUFFS/INHALER INH SCH (18:48)
[2023-04-11] MEDS: cefTRIAXone SODIUM 2,000 MG in DEXTROSE 5 % MINI-B 50 ML IV SCH (22:10)
[2023-04-11] MEDS: rOPINIRole HCL 0.25 MG TABLET PO SCH (22:55)
[2023-04-11] MEDS: ATORVASTATIN 20 MG TAB PO SCH (22:55)
[2023-04-12] MEDS: DAPTOmycin 500 MG in SYRINGE 0 ML IV SCH (00:18)
--- NOTE | 2023-04-12 05:39 | Electrocardiogram Report ---
Test Reason : Blood Pressure : / mmHG Vent. Rate : 079 BPM Atrial Rate : 079 BPM P-R Int : 158 ms QRS Dur : 124 ms QT Int : 424 ms P-R-T Axes : 000 -19 134 degrees QTc Int : 486 ms AV dual-paced rhythm Abnormal ECG When compared with ECG of 10-JAN-2023 15:44, Vent. rate has increased BY 19 BPM Confirmed by Victoriano Jorgensen ([id number]) on 04/12/2023 5:38:27 AM Referred By: REFERRED SELF Confirmed By:Victoriano Jorgensen
[2023-04-12 06:57] LABS: Calcium 9.2 mg/dl (8.6-10.3); Creatinine Clr Calc Pharmacy 37.2 ml/min; Est GFR (Non-African American) 36.2 ml/min; Potassium 4.1 mmol/L (3.5-5.1)
[2023-04-12] MEDS: ALBUT/IPRATROP 3MG/0.5MG NEB 3 ML VIAL NEB SCH ×3 (07:04→14:09)
[2023-04-12 07:14] LABS: INR 1.8 (0.9-1.1); Prothrombin Time 18.7 Seconds (9.0-12.0)
[2023-04-12] MEDS: MAGNESIUM OXIDE 400 MG TAB PO SCH (08:30)
[2023-04-12] MEDS ORDERED: Heparin IV Adult Wt-Based Standard *NO* Bolus Protocol IV SCH (08:30)
[2023-04-12] MEDS: FOLIC ACID 400 MCG TAB PO SCH (08:30)
[2023-04-12] MEDS: DOXYCYCLINE HYCLATE 100 MG in DEXTROSE 5% MINI-B 100 ML IV SCH (08:30)
[2023-04-12] MEDS: SOTALOL HCL 80 MG TAB PO SCH (08:30)
[2023-04-12] MEDS: UMECLIDINIUM/VILANTEROL 62.5/25MCG 7 PUFFS/INHALER INH SCH (08:30)
[2023-04-12] MEDS: VITAMIN B COMPLEX TAB PO SCH (08:31)
[2023-04-12] MEDS: HEPARIN SODIUM/DEXTROSE 25,000 UNITS/500 ML BAG IV SCH (09:46)
--- NOTE | 2023-04-12 10:22 | Pulmonology Progress Note ---
Date of Service April 12, 2023 Assessment & Plan (1) Granulomatous lung disease: (2) Dyspnea: Plan Impression: 87-year-old male with prior history of chronic granulomatous disease and calcified mediastinal lymph nodes. He presented with knee pain and gait instability but was found to have some respiratory issues while here which appear to be chronic and stable at baseline. Recommendations: 1. Prior granulomatous disease: Patient CT scan was independently reviewed and compared to prior CT. The calcified lymph nodes and pleural effusion appear chronic. There are no new suspicious pulmonary nodules or adenopathy that is concerning. No indication for continued radiographic surveillance. The calcified lymph nodes certainly can cause compression of the airways however there is not much to be done for this at this point in time and less the lymph nodes eroded into the bronchi which is unlikely to recur in this 87-year-old gentleman. 2. Shortness of breath and wheezing: He appears to have responded favorably to Anoro. Will continue for now. He can follow-up with Dr. Narayanan as an outpatient with consideration for prior PFTs if felt to be clinically indicated. 3. Patient is pending placement at rehab for his lower extremity issues. I agree with the plan. 4. Sleep disordered breathing: The patient has declined CPAP on multiple occasions. No indication for revisiting this issue currently. This point in time his respiratory status appears to be at his baseline. He is pending evaluation at rehab. Outpatient follow-up with Dr. Narayanan is recommended. Feel free to contact us if we can be of additional assistance Admission and Anticipated Discharge Date Admission Date: April 10, 2023 Subjective Patient states that the addition of the inhaler has been beneficial. His breathing is easier. He is not coughing or expectorating phlegm. He is being evaluated by cardiology with plans to repeat his echocardiogram. Review of Systems 2 Review of Systems: All systems reviewed & are unremarkable except as noted in Subjective Physical Exam 2 Constitutional: WD/WN, vitals as above well developed and well nourished; no acute distress Neck: trachea midline, no thyromegaly Respiratory: normal respiratory effort, lungs clear to auscultation Cardiovascular: Rate/Rhythm: regular rate and regular rhythm Heart Sounds: + murmur (2 out of 6 holosystolic best auscultated at the second left intercostal) Vessels: no JVD Gastrointestinal (Abdomen): normal bowel sounds, soft, nontender, no hepatosplenomegaly Musculoskeletal: Head/Neck/Chest: normocephalic and head atraumatic E xtremities: + muscle atrophy (Of the calves bilaterally) and + foot abnormality Ankle: + limited ROM of ankle (Bilaterally) Skin: no rashes, warm and dry Neurologic: patellar DTR's 2+ bilat, sensation intact CN's II-XI intact bilaterally and moves all extremities Motor/Sensory: no tremor Cranial Nerves: normal accommodation, normal facial strength, tongue midline and symmetric palate elevation Coordination: normal [id number] test Psychiatric: A+Ox3, euthymic affect Results & Data Results & Data Vital Signs (Past 12 Hours) Vital Signs Temp Pulse Resp BP Pulse Ox O2 Del Method 04/12/23 07:57 Room Air 04/12/23 07:50 36.3 C L 74 16 141/85 H 92 Room Air 04/12/23 07:05 77 18 95 Room Air 04/12/23 04:35 36.3 C L 69 22 155/84 H 94 Room Air 04/11/23 23:50 36.6 C 71 18 129/70 92 Room Air Laboratory Results 04/11/23 04:51 04/12/23 06:04 Viral respiratory PCR negative Diagnostic Findings No new films PG Care Time/CCT Total # of Minutes Spent Total Time Spent with Patient: Total time spent is greater than 50% in coordination of care (as documented) at patient's floor/unit and/or counseling patient: Coding Level of Care Code 77526 SUB INP/OBS CARE 2/35MIN Diagnoses Granulomatous lung disease J84.10 Dyspnea R06.00
--- NOTE | 2023-04-12 10:47 | Cardiology Consultation ---
Date of Consultation April 12, 2023 Assessment & Plan (1) Dyspnea: Chronic shortness of breath with exertion. Likely multifactorial with underlying cardiac and pulmonary pathology noted. Chest x-ray on presentation revealed enlargement of the cardiac silhouette, small right pleural effusion and mild pulmonary edema suggested. Patient initially received several doses of IV diuretics however his creatinine trended up to 1.95 from presentation of 1.6, and now with the diuretics being held his creatinine has trended down to 1.68. This suggests perhaps he is not intravascular volume overloaded. His pacemaker was performed 01/10/2023. The device was assessed with remote interrogation when the patient was admitted with appropriate device function. He was right ventricular paced 100% the time, and rate atrial paced about 50% the time. Echocardiogram performed. Pacemaker revealed normal left ventricular systolic function and normal valvular function. We will update echocardiogram for completeness. As noted, patient has a history of mechanical aortic valve replacement performed more than 20 years ago in 1994. Per review of his outpatient chart, his goal INR is 2.5-3.5. INR today 1.8 and therefore I agree with heparin infusion bridge therapy while Coumadin is adjusted. Case discussed with Dr. Ford for the purpose of coordination of care. History of Present Illness Attending Physician: Sathya Holder MD History of Present Illness Mr Zhou is an 87 year old male seen in cardiology consultation per the request of Dr Holder for the evaluation of shortness of breath. Patient initially presented via the emergency room on 04/09/2023 after a fall. Subjective complaints include ongoing generalized difficulty with weakness specifically lower leg weakness. Review of his outpatient chart, his issues with having difficulty with ambulating are not new as it was the focus subjective complaint at the time of his outpatient visit in January, when he arrived in a wheelchair at that time. The complex history of valvular heart disease with 2 past open heart surgeries first in 1994 and again in 2012 as noted below. Due to findings of sick sinus syndrome and an abnormal outpatient ambulatory cardiac rehab nurse he underwent implantation of a dual-chamber Medtronic permanent pacemaker placed on 01/10/2023. Patient with ongoing dyspnea. He was seen by pulmonary medicine this admission as well and subjectively today he states his breathing may be a little bit better on his current inhalers. Problem List: 1.Bicuspid aortic valve status post initial aortic valve replacement in 1994 with a [employer] mechanical prosthesis. 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 3.Paroxysmal atrial fibrillation, on Sotalol and warfarin 4. Conduction system disease, sick sinus syndrome, dual-chamber permanent Medtronic pacemaker placed 01/10/2023, Dr. Thayer 5.Nonobstructive CAD per cardiac cath, 2012 6.Hypertension 7.Heart failure with preserved LVEF 8.Dyslipidemia 9.Stage III CKD 10.ALEXANDRO 11.Restrictive lung disease, interstitial nodular lung disease. 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 17.Cervical & Lumbar DDD 18.Right rotator cuff tear spring 2021 Allergies Allergy/AdvReac Type Severity Reaction Status Date / Time Penicillins Allergy Intermediate RASH Verified 01/10/23 11:38 Home Medications Medication Instructions Recorded Confirmed Type furosemide 40 mg tablet 20 mg PO QAM 03/04/19 04/09/23 History sotalol 80 mg tablet 40 mg PO QAM 11/12/19 04/09/23 History acetaminophen 500 mg tablet 1,000 mg (2 x 500 mg) PO BID PRN 07/18/21 04/09/23 Rx (Tylenol Extra Strength) Pain #30 tabs diclofenac sodium 1 % topical gel 4 g EXT QID PRN Pain 11/03/21 04/09/23 History (Voltaren Arthritis Pain) vit C,E,zinc,copper-bnhav8e 250 2 cap PO QAM 11/03/21 04/09/23 History mg-lutein 5 mg-zeaxanthin 1 mg capsule warfarin 2 mg tablet See Rx Instructions .Route 11/11/21 04/09/23 Rx .COMPLEX #0 tabs diaper,brief,adult,disposable #100 ea 02/02/22 01/01/23 Rx (E[place]ene Choice Comfort Protect Adult Diaper X-Large) amoxicillin 500 mg capsule 2,000 mg PO PRN 01/01/23 04/09/23 History atorvastatin 20 mg tablet 20 mg PO HS #90 tabs 01/01/23 04/09/23 Rx magnesium oxide 400 mg PO DAILY 01/01/23 04/09/23 History spironolactone 25 mg tablet 12.5 mg PO DAILY 01/01/23 04/09/23 History vitamin B complex (B 1 tab PO DAILY 01/01/23 04/09/23 History Complex-Vitamin B12 tablet) ropinirole 0.25 mg tablet 0.25 mg PO HS #90 tabs 01/08/23 04/09/23 Rx ascorbic acid (vitamin C) 500 mg 500 mg PO DAILY 04/09/23 04/09/23 History tablet (Vitamin C) folic acid 400 mcg tablet 0.4 mg PO DAILY 04/09/23 04/09/23 History Patient History Medical History CKD (chronic kidney disease), stage III Macular degeneration GETS SHOTS IN EYES FOR TREATMENT Q8-10 WEEKS Restless leg syndrome History of cardioversion History of atrial fibrillation Hypertension Aortic valve disorder Atrial flutter BPH with obstruction/lower urinary tract symptoms Coronary artery disease Nonobstructive on [facility] 2012 Ventral hernia Moderate obstructive sleep apnea Pseudogout Surgical History History of left cataract surgery 11/19/2019. propofol given. History of colonoscopy History of tooth extraction History of inguinal hernia repair LEFT X 2 History of vasectomy History of mitral valve replacement 4 YEARS AGO (DENICE TAYOLR) History of aortic valve replacement AT AGE 58 (DENICE TAYLOR) Family History Sister Heart disease Denies family history of Ovarian cancer Prostate cancer Myocardial infarction Breast cancer Colorectal cancer Social History Smoking Status: Never smoker Second Hand Exposure: No; Do You Dip or Chew Tobacco: No; Hx Alcohol Use: Yes Alcohol type: wine Alcohol Intake Frequency: 2-3 x/Week Alcohol Intake Frequency Comment: 2 glasses of wine per week Hx Substance Use: No Preferred Language: Malay Communication Ability: Effective Visual Impairment: Diminished Hearing Ability: Normal Acquisition Professional Required: No Beliefs That Will Affect Care: None marital status: Current Living Situation: Spouse current occupational status: retired 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 Other Information That Helps Us Care for You: No Feels Safe at Home: Yes Safety Concerns: Feels Safe At This Time Childhood Exposure to Second-Hand Smoke: Yes Diet: regular Dental Care, Regularly: Yes Physical Activity Frequency: Daily Seatbelt Use: always Sunscreen Use: Yes (sometimes ) Assistive Devices: Walker Review of Systems Review of Systems: All systems reviewed & are unremarkable except as noted in HPI & below Physical Exam Constitutional: + ill appearing (Chronically ill in appe arance without acute distress) Respiratory: Auscultation: + diminished lung sounds (Decreased breath sounds the bases, no rales rhonchi or wheezing) Cardiovascular: Rate/Rhythm: regular rate Heart Sounds: no murmur (There is mechanical prosthetic heart sounds noted) Extremities: no edema Gastrointestinal (Abdomen): normal bowel sounds, soft, nontender, no hepatosplenomegaly Neurologic: PERRL, EOMI, accommodation nl, no face palsy, no dysarthria Results & Data Vital Signs (Past 12 Hours) Vital Signs Temp Pulse Resp BP Pulse Ox O2 Del Method 04/12/23 07:57 Room Air 04/12/23 07:50 36.3 C L 74 16 141/85 H 92 Room Air 04/12/23 07:05 77 18 95 Room Air 04/12/23 04:35 36.3 C L 69 22 155/84 H 94 Room Air 04/11/23 23:50 36.6 C 71 18 129/70 92 Room Air Laboratory Results Coagulation 04/12/23 Range/Units 06:04 PT 18.7 H (9.0-12.0) Seconds Comprehensive Metabolic Panel 04/12/23 Range/Units 06:04 Sodium 133 L (136-145) mmol/L Potassium 4.1 (3.5-5.1) mmol/L Chloride 95 L (98-107) mmol/L Carbon Dioxide 31 (21-32) mmol/L BUN 37 H (6-23) mg/dl Creatinine 1.68 H (0.6-1.4) mg/dl Glucose 106 H (70-99(Fasting)) mg/dl Calcium 9.2 (8.6-10.3) mg/dl Intake and Output 04/11/23 04/12/23 04/12/23 22:59 06:59 14:59 Intake Total 50 / 250 100 / 250 85 / 85 Output Total 200 / 525 325 / 525 Balance -150 / -275 -225 / -275 85 / 85 Intake: IV 50 / 250 100 / 250 85 / 85 Doxycycline Hyclate 100 mg In 100 / 200 85 / 85 Dextrose 5% Mini-B 100 ml @ 50 mls/hr IV Q12H [facility] Rx#:[id number] cefTRIAXone SODIUM 2,000 mg In 50 / 50 Dextrose 5 % Mini-B 50 ml @ 100 mls/hr IV Q24H [facility] Rx#: [id number] Output: Urine 200 / 525 325 / 525 Other: Other Intake Source sips Sips # Unmeasured Voids 1 Weight 102.1 kg INR 04/12/2023 is 1.8 Diagnostic Findings EKG performed 04/09/2023 Reviewed AV sequential pacing with rate of 79 bpm. Summary of ttecho performed 01/04/23: There was sinus bradycardia during the examination. The LV wall thickness is moderately increased (concentric). The left ventricular wall motion is normal. Calculated LV ejection Fraction = 54% (bi-plane method of discs). There is a mechanical aortic valve prosthesis. The aortic valve prosthesis systolic gradients are normal for this type prosthesis. Significant aortic valve prosthesis regurgitation is absent. There is a mitral valve bioprosthesis present. The mitral valve prosthesis systolic gradients are normal for this type prosthesis. Significant mitral valve prosthesis regurgitation is absent. Mild tricuspid regurgitation is present. Compared to the report of the previous study dated 04/20/2021, there is no significant interval change.
[2023-04-12] MEDS: DOXYCYCLINE HYCLATE 100 MG CAP PO SCH ×2 (10:54→21:42)
[2023-04-12] MEDS: ACETAMINOPHEN 325 MG TAB PO PRN (13:48)
[2023-04-12] MEDS ORDERED: ALBUT/IPRATROP 3MG/0.5MG NEB 3 ML VIAL NEB PRN (14:49)
[2023-04-12] MEDS: WARFARIN SOD 4 MG TAB PO SCH (15:41)
[2023-04-12] MEDS ORDERED: WARFARIN SOD 4 MG TAB PO ONE (16:00)
[2023-04-12 16:40] LABS: Partial Thromboplastin Ratio 1.5
[2023-04-12 16:50] LABS: Partial Thromboplastin Time 41.8 Seconds (21.0-31.0)
[2023-04-12] MEDS ORDERED: predniSONE 20 MG TAB PO STA (17:46)
--- NOTE | 2023-04-12 19:42 | XRay Report ---
XR chest 1V portable CLINICAL HISTORY: dyspnea, interval change TECHNIQUE: Single frontal radiograph of the chest was obtained. Comparison: Comparison is made to chest radiograph 04/10/2023 FINDINGS: Median sternotomy wires are unchanged. Pacemaker is noted. Cardiomegaly is noted. The aortic arch is calcified. Mitral valvular prosthesis is noted. Faint bibasilar airspace opacities are seen. No evide nce of pleural effusion or pneumothorax. IMPRESSION: Faint bibasilar airspace opacities which may represent atelectasis, pneumonia, and/or aspiration. No definite radiographic evidence of previously noted pleural effusions. Stable cardiomegaly. ACT 112: Negative or not required by law. Electronically signed by: Brandon Flowers M.D. 04/12/2023 7:41 PM
--- NOTE | 2023-04-12 20:01 | Hospitalist Progress Note ---
Date of Service April 12, 2023 Assessment & Plan (1) Dyspnea: Plan: ongoing - but improved however - despite use of bronchodilators, diuresis, antibiotics, etc - he still has noisy breathing, subcostal retractions, etc CT chest with bronchial compression from large, bulky, calcified lymph nodes - chronic/seen on past CTs, but contributing to clinical picture? asthma/obstructive lung disease? infectious etiology given recent fevers? other etiology? 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 aspiration leading to dyspnea? of note - his problem list mentions restrictive lung disease as well as asthma there is reference to "interstitial nodular lung disease" cannot find an outpatient pulm note or PFTs to substantiate an asthmatic condition (2) Right knee pain: Plan: pt initially had acute left knee pain early in the admission s/p arthrocentesis of L knee but crystal analysis was negative and culture negative now with right knee pain and effusion the multiple joint involvement does argue for an inflammatory arthropathy still suspect pseudogout will give 20mg of prednisone x 1 and re-eval tomorrow (3) Left knee pain: Plan: appreciate [facility] Ortho consultation s/p arthrocentesis L knee 40cc clear fluid WBCs from fluid not c/w septic joint gram stain negative and cx thus far negative crystal analysis surprisingly negative 2nd to trauma? pseudogout -- but the crystal analysis falsely negative? other? either way it is improved follow culture see #2 re: right knee (4) Abdominal distension: Plan: check KUB x-rays, assess stool load and gas pattern (5) Fever: Plan: etiology? 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 due to pain in knees leading to leg instability? brewing infectious process? neuropathy of legs? progressive neurological condition? PT, OT evals consider neurology consultation (8) Ambulatory dysfunction: Plan: Ambulates with a walker at baseline, wheelchair for distances Has seen neurology for polyneuropathy, R foot deformity, etc (last office visit was 09/2022 per scanned records - [facility]) Locally has seen Dr Real see above Re: brace (9) Idiopathic polyneuropathy: Plan: B12 level wnl neuropathy is chronic has had EMG studies in the past (11/2021 - showed mixed motor/sensory neuropathy of legs -- etiology uncertain) I can't see he has ever been trialed on lyrica or gabapentin strongly consider gabapentin for neuropathic pain (10) History of atrial fibrillation: Plan: Permanent dual AV pacemaker in place; 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 Stable; rate controlled PT/INR 1.9 on arrival INR again 1.8 today Continue Coumadin; since INR is still <2.5-3.5 goal range will bridge with IV heparin Continue sotalol obtained pacemaker interrogation while here - per Dr Chaudhary, [facility], interrogation was wnl formal cardiology consult requested with Dr Chaudhary to ensure pulm symptoms are not cardiac in nature INR am (11) (HFpEF) heart failure with preserved ejection fraction: Plan: follows with [facility] attempts at diuresis hospital day #1 - no significant change in his clinical status - and creatinine simply julio with diuretics hold PO diuretics 1 more day echo ordered by Dr Chaudhary (12) Restless leg syndrome: Plan: Continue ropinirole (13) CKD (chronic kidney disease), stage III: Plan: baseline Cr of ~1.4 Cr today 1.6 BMP am see above (14) History of aortic valve replacement: Plan: [facility] [employer] [facility] valve - 1994 (2nd to bicuspid AV) INR goal is 2.5 to 3.5 last echo 04/2021 - valve appearing to be functioning normally repeat echo ordered today by Dr Chaudhary see above re: coumadin/heparin drip (15) 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 etiology of acute dysphagia? something neurological? consider repeat MRI brain and MRI cervical spine Plan extensively updated by phone this evening cont PT/OT as able Admission and Anticipated Discharge Date Admission Date: April 10, 2023 Subjective pt c/o right knee pain today started overnight previously his pain was in the left knee he continues to c/o what sounds like his chronic neuropathy (shooting pains in thighs) states his breathing is better today no significant cough incontinent of urine episodes of confusion per staff eating fair per flowsheets tele stable overnight Review of Systems Review of Systems: gen - no further fevers or chills cv - no chest pain pulm - dyspnea with exertion, wheezing; no stridor GI - no abd pain, nausea, emesis Physical Exam Physical Exam: gen - tachypnea improved but still with "noisy" breathing pattern; no stridor; mild subcostal retractions still present; awake, alert; looks slightly better than yesterday mouth - MMM neck - no JVD heart - mechanical valve closure sound, RRR, s1 s2 lungs - inspiratory phase clear; mild end-exp wheeze, tachypnea, subtle subcostal retractions - scantly better; minimal rales bases abd - soft NT BS+; mildly distended - similar to past exams ext - right foot deformity with inversion of entire foot; pulses 2+ b/l; trace edema b/l - a bit worse on left musculo - right knee with mild effusion, slight warmth, and tenderness with passive ROM of right knee; left knee without warmth or tenderness psych - awake, alert - but mildly confused - similar to yesterday Results & Data Results & Data Vital Signs (Past 12 Hours) Vital Signs Temp Pulse Pulse Resp BP Pulse Ox O2 Del Method 04/12/23 19:38 36.9 C 70 16 152/83 H 95 Room Air 04/12/23 17:18 65 04/12/23 15:53 37.0 C 69 16 131/63 91 Room Air 04/12/23 12:04 36.9 C 68 16 121/58 L 93 Room Air Laboratory Results Laboratory Results - last 24 hr 04/12/23 04/12/23 06:04 15:40 PT 18.7 H INR 1.8 H APTT 41.8 H* PTT Ratio 1.5 Sodium 133 L Potassium 4.1 Chloride 95 L Carbon Dioxide 31 Anion Gap 7 BUN 37 H Creatinine 1.68 H Est Cr Clr Drug Dosing 37.2 Est GFR ( Amer) 42.0 Est GFR (Non-Af Amer) 36.2 BUN/Creatinine Ratio 22.0 H Glucose 106 H Calcium 9.2 PG Care Time/CCT Total # of Minutes Spent Total Time Spent with Patient: Total time spent is greater than 50% in coordination of care (as documented) at patient's floor/unit and/or counseling patient: Coding Level of Care Code 87053 SUB INP/OBS CARE 3/50MIN Diagnoses Dyspnea R06.00 Right knee pain M25.561 Left knee pain M25.562 Abdominal distension R14.0 Fever R50.9 Fever type: unspecified Deformity of right foot M21.961 Fall W19.XXXA Encounter type: initial encounter Ambulatory dysfunction R26.2 Idiopathic polyneuropathy G60.9 History of atrial fibrillation Z86.79 (HFpEF) heart failure with preserved ejection fraction I50.30 Restless leg syndrome G25.81 CKD (chronic kidney disease), stage III N18.30 Chronic kidney disease stage 3 subtype: unspecified whether 3a or 3b History of aortic valve replacement Z95.2 History of mitral valve replacement Z95.2 Dysphagia R13.10 (5) Fever Fever type: unspecified Qualified Code(s): R50.9 - Fever, unspecified (7) Fall Encounter type: initial encounter Qualified Code(s): W19.XXXA - Unspecified fall, initial encounter (13) CKD (chronic kidney disease), stage III Chronic kidney disease stage 3 subtype: unspecified whether 3a or 3b Qualified Code(s): N18.30 - Chronic kidney disease, stage 3 unspecified
--- NOTE | 2023-04-12 20:03 | XRay Report ---
XR KUB/Abdomen 1 view CLINICAL HISTORY: abd distension TECHNIQUE: 1 view of the abdomen was obtained. Comparison: None available at the time of this dictation. FINDINGS: Lung bases are unremarkable. Degenerative changes are seen in the visualized skeleton. The bowel gas pattern is nonobstructive. Small stool burden is seen. IMPRESSION: Nonobstructive bowel gas pattern. ACT 112: Negative or not required by law. Electronically signed by: Brandon Flowers M.D. 04/12/2023 8:02 PM
[2023-04-12] MEDS: cefTRIAXone SODIUM 2,000 MG in DEXTROSE 5 % MINI-B 50 ML IV SCH (21:14)
[2023-04-12] MEDS: ATORVASTATIN 20 MG TAB PO SCH (21:42)
[2023-04-12] MEDS: rOPINIRole HCL 0.25 MG TABLET PO SCH (21:42)
[2023-04-12 22:15] LABS: Partial Thromboplastin Time 55.5 Seconds (21.0-31.0)
[2023-04-13] MEDS: HEPARIN SODIUM/DEXTROSE 25,000 UNITS/500 ML BAG IV SCH ×2 (04:32→22:23)
[2023-04-13 06:33] LABS: Basophils # (auto) 0.01 K/uL (0.00-0.20); Basophils % (auto) 0.1 %; Hematocrit (blood only) 33.3 % (42.0-52.0); Hemoglobin 11.6 g/dl (14.0-18.0); Immature Granulocytes # (auto) 0.08 K/uL (0.01-0.20); Immature Granulocytes % (auto) 0.7 %; Lymphocytes # (auto) 1.32 K/uL (1.20-3.40); Mean Corpuscular Hemoglobin 31.6 pg (25.0-34.0); Mean Corpuscular Hgb Conc 34.8 g/dL (32.0-36.0); Mean Corpuscular Volume 90.7 fL (80.0-100.0); Mean Platelet Volume 10.8 fL (9.4-12.4); Monocytes # (auto) 1.26 K/uL (0.11-0.59); Monocytes % (auto) 11.4 %; Neutrophils # (auto) 8.36 K/uL (1.40-6.50); Neutrophils % (auto) 75.8 %; Platelet Count 250 K/uL (130-400); RDW Coefficient of Variation 12.1 % (11.5-14.5); RDW Standard Deviation 40.2 fL (36.4-46.3); Red Blood Count 3.67 M/uL (4.70-6.10); White Blood Count 11.03 K/ul (4.8-10.8)
[2023-04-13 06:49] LABS: BUN Creatinine Ratio 23.8 (10-20); Calcium 8.8 mg/dl (8.6-10.3); Creatinine Clr Calc Pharmacy 41.4 ml/min; Est GFR (African American) 47.8 ml/min; Est GFR (Non-African American) 41.2 ml/min; Potassium 4.2 mmol/L (3.5-5.1)
[2023-04-13 07:04] LABS: INR 2.3 (0.9-1.1); Partial Thromboplastin Ratio 2.8; Prothrombin Time 23.9 Seconds (9.0-12.0)
[2023-04-13] MEDS: UMECLIDINIUM/VILANTEROL 62.5/25MCG 7 PUFFS/INHALER INH SCH (08:20)
[2023-04-13] MEDS: SOTALOL HCL 80 MG TAB PO SCH (08:20)
[2023-04-13] MEDS: MAGNESIUM OXIDE 400 MG TAB PO SCH (08:20)
[2023-04-13] MEDS: FOLIC ACID 400 MCG TAB PO SCH (08:20)
[2023-04-13] MEDS: DOXYCYCLINE HYCLATE 100 MG CAP PO SCH ×2 (08:20→20:24)
[2023-04-13] MEDS: VITAMIN B COMPLEX TAB PO SCH (08:21)
--- NOTE | 2023-04-13 09:20 | Neurology Consultation ---
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 In addition has upper motor neuron signs with upgoing toes suggesting myelopathy. Although his history suggests some cognitive deficits, he had a very reasonable conversation and memory evaluation with me. I suspect some mild cognitive impairment from advanced age. Clinically his legs are weak with some spasticity and dystonic turning on the right leg. His arm seems spared. He has little in the way of spine pain but does have a history of cervical spinal stenosis, as noted by MRI in October of 2021 I do not see a neurologic abnormal breathing pattern Recommendations: 1. It is reasonable to repeat MRIs of the brain, cervical spine, and thoracic spine to see if there is any cord impingement or other CO OP lesions that would explain his findings. The patient was offered this by [facility] early this year but declined repeat studies. 2. Physical and occupational therapy and he would be a good rehabilitation hospital candidate for strengthening and gait training. 3. Consider CK, aldolase, and Lyme antibody titers Overall, spent a total of 60 minutes with this case including review of records, review the MRI films, direct evaluation the patient at bedside, report generation, and discussion of the case with the patient and RN at bedside, and Dr. Holder including differential diagnosis and treatment options. History of Present Illness Reason for Consultation: Patient is an 87-year-old, who I was asked to see the request of Dr. Holder, for neurologic evaluation regarding weakness and other issues. Requesting Physician: Dr. Holder Attending Physician: Sathya Holder MD History of Present Illness This patient started having lower extremity weakness in 2018 accompanied by severe cervical spine. The right was worse than the left. He also had right greater than left knee pain as well. At that time, MRI of the cervical spine showed multilevel degenerative changes but no significant spinal stenosis. MRI of the lumbar spine revealed multilevel degenerative changes of disc and bone with foraminal stenosis but no significant spinal stenosis. MR of the thoracic spine showed a disc protrusion at T7-8 that touched the cord with no cord signal abnormality. In October of 2021 the patient had significant weakness in the legs. An MRI of the brain showed some moderate atrophy with no acute changes. Repeat MRI of the cervical spine showed mild spinal stenosis with a normal appearing spinal cord. In November of 2021 EMG nerve conduction studies revealed a sensory motor polyneuropathy and on exam there were high arches and hammertoes. His mother had these physical findings as well. A 2nd opinion [facility] in May of 2022 revealed dystonia in the ankles and upgoing toes. They suggested repeat MRI of the brain, cervical spine, and thoracic spine, but the patient did not have these done. He has chronic weakness in his legs and a gait disturbance. His vision is poor because of macular degeneration and the neuropathy. In addition he has bilateral knee pain which responds to fluid aspiration by Orthopedics. He uses a walker. On February 07, patient had fallen and would weakness in his legs with poor gait. He also had CKD. His knees hurt and had an aspiration by Orthopedics which helps. Currently he is in no pain. Cardiac evaluation revealed chronic, stable issues. Echocardiogram showed the aortic valve mechanical prosthesis and no other significant issues. Pulmonary consult revealed chronic granulomatous disease and calcified mediastinal lymph nodes and no other acute issues. The patient has chronic COPD and breathing issues with dyspnea on exertion. Currently the patient has no pain and is not dizzy. He admits to being short of breath at times in bed. His memory is good as is his mood. He denies neck pain. Allergies Allergy/AdvReac Type Severity Reaction Status Date / Time Penicillins Allergy Intermediate RASH Verified 01/10/23 11:38 Home Medications Medication Instructions Recorded Confirmed Type furosemide 40 mg tablet 20 mg PO QAM 03/04/19 04/09/23 History sotalol 80 mg tablet 40 mg PO QAM 11/12/19 04/09/23 History acetaminophen 500 mg tablet 1,000 mg (2 x 500 mg) PO BID PRN 07/18/21 04/09/23 Rx (Tylenol Extra Strength) Pain #30 tabs diclofenac sodium 1 % topical gel 4 g EXT QID PRN Pain 11/03/21 04/09/23 History (Voltaren Arthritis Pain) vit C,E,zinc,copper-[id number] 250 2 cap PO QAM 11/03/21 04/09/23 History mg-lutein 5 mg-zeaxanthin 1 mg capsule warfarin 2 mg tablet See Rx Instructions .Route 11/11/21 04/09/23 Rx .COMPLEX #0 tabs diaper,brief,adult,disposable #100 ea 02/02/22 01/01/23 Rx ([employer] Choice Comfort Protect Adult Diaper X-Large) amoxicillin 500 mg capsule 2,000 mg PO PRN 01/01/23 04/09/23 History atorvastatin 20 mg tablet 20 mg PO HS #90 tabs 01/01/23 04/09/23 Rx magnesium oxide 400 mg PO DAILY 01/01/23 04/09/23 History spironolactone 25 mg tablet 12.5 mg PO DAILY 01/01/23 04/09/23 History vitamin B complex (B 1 tab PO DAILY 01/01/23 04/09/23 History Complex-Vitamin B12 tablet) ropinirole 0.25 mg tablet 0.25 mg PO HS #90 tabs 01/08/23 04/09/23 Rx ascorbic acid (vitamin C) 500 mg 500 mg PO DAILY 04/09/23 04/09/23 History tablet (Vitamin C) folic acid 400 mcg tablet 0.4 mg PO DAILY 04/09/23 04/09/23 History Patient History Medical History CKD (chronic kidney disease), stage III Macular degeneration GETS SHOTS IN EYES FOR TREATMENT Q8-10 WEEKS Restless leg syndrome History of cardioversion History of atrial fibrillation Hypertension Aortic valve disorder Atrial flutter BPH with obstruction/lower urinary tract symptoms Coronary artery disease Nonobstructive on [facility] 2012 Ventral hernia Moderate obstructive sleep apnea Pseudogout Surgical History History of left cataract surgery 11/19/2019. propofol given. History of colonoscopy History of tooth extraction History of inguinal hernia repair LEFT X 2 History of vasectomy History of mitral valve replacement 4 YEARS AGO ([facility]) History of aortic valve replacement AT AGE 58 ([facility]) Family History Sister Heart disease Denies family history of Ovarian cancer Prostate cancer Myocardial infarction Breast cancer Colorectal cancer Social History Smoking Status: Never smoker Second Hand Exposure: No; Do You Dip or Chew Tobacco: No; Hx Alcohol Use: Yes Alcohol type: wine Alcohol Intake Frequency: 2-3 x/Week Alcohol Intake Frequency Comment: 2 glasses of wine per week Hx Substance Use: No Preferred Language: Danish Communication Ability: Effective Visual Impairment: Diminished Hearing Ability: Normal Net Finisher Required: No Beliefs That Will Affect Care: None marital status: Current Living Situation: Spouse current occupational status: retired 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 Other Information That Helps Us Care for You: No Feels Safe at Home: Yes Safety Concerns: Feels Safe At This Time Childhood Exposure to Second-Hand Smoke: Yes Diet: regular Dental Care, Regularly: Yes Physical Activity Frequency: Daily Seatbelt Use: always Sunscreen Use: Yes (sometimes ) Assistive Devices: Walker Review of Systems Constitutional: no fever, no fatigue and no weakness Eyes: no diplopia, no eye pain and no worsening vision Ear, Nose, Mouth, Throat: no ear pain, no tinnitus, no hearing loss, no dizziness, no snoring, no hoarseness and no dysphagia Respiratory: + dyspnea; no cough Cardiovascular: no chest pain, no palpitations and no lightheadedness Gastrointestinal: no abdominal pain, no nausea and no vomiting Musculoskeletal: + joint pain; no back pain, no neck pain , no radicular pain and no myalgia Integumentary: no rash and no lesions Neurologic: + gait abnormality and + localized weakn ess; no generalized weakness, no tingling, no numbness, no tremor(s), no abnormal movements, no headache(s), no abnormal speech, no confusion and no memory loss Psychiatric: no depression, no irritability, no anxiety, no difficulty concentrating, no confusion and no hallucinations Endocrine: no fatigue and no flushing Hematologic / Lymphatic: no easy bleeding and no easy bruising Allergy / Immunological: no urticaria and no problem reported Exam (Neuro) Physical Exam: The patient is right-handed. The patient is awake, alert, and attentive. Speech is normal without any aphasia or dysarthria. The patient can name objects, repeat phrases, and has normal spontaneous speech. Mentation and thought processes are intact, with dwight entation to person, place and time, and normal fund of knowledge. Attention and concentration are normal. Mood and affect are normal and appropriate. General appearance and grooming are normal. Short and long-term memory are intact to conversation. I study the patient's breathing habits and at times he gets somewhat deep and rapid for a few seconds but otherwise he is fairly calm and regular. He does get increase respiratory rate with minimal exertion. Pupils are 3 mm bilaterally and reactive to light. Extraocular eye muscles are intact without nystagmus. Visual acuity and visual buckley seem normal grossly to confrontation. There are no deficits to sensation in the face in all 3 distributions of the fifth cranial nerve bilaterally. Corneal reflexes are positive bilaterally. Facial strength and symmetry was normal bilaterally. Hearing seems normal bilaterally. Palate moves well without asymmetry. There is normal sternocleidomastoid and trapezius (shoulder shrug) strength bilaterally. Tongue is midline with good strength bilaterally. Neck has a full range of motion without discomfort. There are no cervical bruits bilaterally. There are no cranial or ocular bruits. Heart is without murmur. There is a regular rhythm and rate. Cervical, thoracic, and lumbar spine are nontender to palpation. Gait was not tested stance sitting up in bed is reasonable. With outstretched arms there is no drift. There are no resting, postural, or action tremors. There is no ataxia with finger to nose testing. There is good facility in the hands. No other abnormal involuntary movements are noted. Motor strength is 5/5 diffusely in the arms bilaterally including deltoids, biceps, triceps, brachioradialis, wrist flexors and extensors, protective signal installer helper, and intrinsic hand muscles. Motor strength is 4/5 diffusely in the legs bilaterally including hip flexors, quadriceps, hamstrings, gastrocnemius, tibialis anterior, tibialis posterior, and Peroneii muscles. Toe extensors are normal and there is good bulk in the extensor digitorum brevis muscles bilaterally. Right lower extremity has some spasticity and there is some flexure dystonia on the right greater than left. There is decreased sensation to pin and touch in the feet but the hands are spared. Reflexes are 1/4 in the biceps and triceps tendons bilaterally. Brachioradialis, quadriceps, and Achilles tendon reflexes are absent bilatera lly. There is no clonus bilaterally. Toes are upgoing with plantar stimulation bilaterally. Peripheral pulses are present and of normal quality distally in all 4 limbs. There is no peripheral edema noted in the limbs. Results & Data Vital Signs (Past 12 Hours) Vital Signs Temp Pulse Pulse Resp BP Pulse Ox O2 Del Method 04/13/23 07:54 36.9 C 66 20 156/74 H 95 Room Air 04/13/23 07:35 Room Air 04/13/23 03:20 36.6 C 69 14 158/84 H 93 Room Air 04/12/23 23:30 36.8 C 69 14 155/85 H 91 Room Air 04/12/23 22:18 60 PG Care Time/CCT Total # of Minutes Spent Total Time Spent with Patient: Total time spent is greater than 50% in coordination of care (as documented) at patient's floor/unit and/or counseling patient: Critical Care Time Diagnosis and treatment options. Coding Level of Care Code 33743 INT INP/OBS CARE 2/55MIN Diagnoses Idiopathic polyneuropathy G60.9 Bilateral leg weakness R29.898 Ambulatory dysfunction R26.2 Dyspnea R06.00
--- NOTE | 2023-04-13 11:57 | Cardiology Progress Note ---
Date of Service April 13, 2023 Assessment & Plan (1) Dyspnea: Plan: Complex case as well summarized in Dr Dawn's progress notes. Neurology input noted and appreciated with working diagnosis of an idiopathic polyneuropathy. Echo findings stable. Pt felt to be euvolemic. INR 2.3 with goal INR of 2.5-3.5 given history of mechanical AV prosthesis placed in 1994. Continue heparin bridge , coumadin dose already adjusted. Creatinine back to baseline, consider resuming POPCORN ATTENDANT oral furosemide dose. Dr Hou rounding 04/14/23 , call with questions or concerns. Admission and Anticipated Discharge Date Admission Date: April 10, 2023 Subjective Patient seen in cardiology consultation. His track repairer helper, Alicia, accompanies him at the bedside. No acute complain. Chronic SOB and left weakness noted. AV sequential pacing noted. Physical Exam Constitutional: + ill appearing (Chronically ill in appe arance without acute distress) Respiratory: Auscultation: + diminished lung sounds (Decreased breath sounds the bases, no rales rhonchi or wheezing) Cardiovascular: Rate/Rhythm: regular rate Heart Sounds: no murmur (There is mechanical prosthetic heart sounds noted) Extremities: no edema Gastrointestinal (Abdomen): normal bowel sounds, soft, nontender, no hepatosplenomegaly Neurologic: PERRL, EOMI, accommodation nl, no face palsy, no dysarthria Results & Data Vital Signs (Past 12 Hours) Vital Signs Temp Pulse Resp BP Pulse Ox O2 Del Method 04/13/23 11:21 36.4 C L 65 20 143/77 H 93 Room Air 04/13/23 07:54 36.9 C 66 20 156/74 H 95 Room Air 04/13/23 07:35 Room Air 04/13/23 03:20 36.6 C 69 14 158/84 H 93 Room Air
[2023-04-13 14:10] LABS: Partial Thromboplastin Ratio 2.9
[2023-04-13 14:13] LABS: Partial Thromboplastin Time 80.5 Seconds (21.0-31.0)
[2023-04-13 15:33] LABS: Lyme Ab IgG w/WB Rflx Negative (Negative); Lyme Ab IgM w/WB Rflx Negative (Negative)
[2023-04-13] MEDS: WARFARIN SOD 6 MG TAB PO SCH (16:03)
--- NOTE | 2023-04-13 19:12 | Hospitalist Progress Note ---
Date of Service April 13, 2023 Assessment & Plan (1) Dyspnea: Plan: ongoing however - despite use of bronchodilators, diuresis, antibiotics, etc - he still has noisy breathing, subcostal retractions, etc CT chest with bronchial compression from large, bulky, calcified lymph nodes - chronic/seen on past CTs, but contributing to clinical picture? asthma/obstructive lung disease? infectious etiology given recent fevers? other etiology? 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 aspiration leading to dyspnea? I spoke with Dr Real from neuro who will consult today of note - his problem list mentions restrictive lung disease as well as asthma there is reference to "interstitial nodular lung disease" cannot find an outpatient pulm note or PFTs to substantiate an asthmatic condition start prednisone 40mg daily for ongoing wheezing (2) Right knee pain: Plan: pt initially had acute left knee pain early in the admission s/p arthrocentesis of L knee but crystal analysis was negative and culture negative now with right knee pain and effusion rapid improvement overnight with low-dose prednisone which is suggestive of inflammatory arthropathy still suspect pseudogout despite recent neg arthrocentesis on opposite knee prednisone for resp issues will help both knees (3) Left knee pain: Plan: appreciate [facility] consultation s/p arthrocentesis L knee 40cc clear fluid WBCs from fluid not c/w septic joint gram stain negative and cx thus far negative crystal analysis surprisingly negative culture remains negative 2nd to trauma? pseudogout? (perhaps the crystal analysis was falsely negative?) other? either way it is improved see #2 re: right knee (4) Abdominal distension: Plan: checked [facility] x-rays unremarkable consider CT a/p (5) Fever: Plan: etiology? 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 due to pain in knees leading to leg instability? brewing infectious process? neuropathy of legs? progressive neurological condition? PT, OT evals neurology consultation today (8) Ambulatory dysfunction: Plan: Ambulates with a walker at baseline, wheelchair for distances Has seen neurology for polyneuropathy, R foot deformity, etc (last office visit was 09/2022 per scanned records - [facility]) Locally has seen Dr Real see above Re: brace (9) Idiopathic polyneuropathy: Plan: B12 level wnl neuropathy is chronic has had EMG studies in the past (11/2021 - showed mixed motor/sensory neuropathy of legs -- etiology uncertain) I can't see he has ever been trialed on lyrica or gabapentin strongly consider gabapentin for neuropathic pain (10) History of atrial fibrillation: Plan: Permanent dual AV pacemaker in place; 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 Stable; rate controlled PT/INR 1.9 on arrival INR again 2.3 today Continue Coumadin; since INR is still <2.5-3.5 goal range cont bridge with IV heparin Continue sotalol obtained pacemaker interrogation while here - per Dr Chaudhary, [facility], interrogation was wnl INR am (11) (HFpEF) heart failure with preserved ejection fraction: Plan: follows with [facility] attempts at diuresis hospital day #1 - no significant change in his clinical status - and creatinine simply julio with diuretics hold PO diuretics 1 more day echo this admission with preserved EF and normal AV and MV function (12) Restless leg syndrome: Plan: Continue ropinirole (13) CKD (chronic kidney disease), stage III: Plan: baseline Cr of ~1.4 BMP am for stability (14) History of aortic valve [facility]: [facility] to bicus[facility] AV) INR goal is 2.5 to 3.5 last echo 04/2021 - valve appearing to be functioning normally repeat echo this admission with normal AV function see above re: coumadin/heparin drip (15) History of mitral valve replacement: Plan: [employer] 2012 - 2nd to flail MV leaflet with resulting severe MR (16) Dysphagia: Plan: speech therapy consult appreciated despite modification to diet staff & pt's cont to notice problems with swallowing will ask speech to re-eval video swallow?? relatively new problem in the last few weeks is aspiration contributing to his dyspnea? etiology of acute dysphagia? something neurological? consider repeat MRI brain and MRI cervical spine Plan extensively updated by phone yesterday evening cont PT/OT as able Admission and Anticipated Discharge Date Admission Date: April 10, 2023 Subjective pt watching TV during the visit he had spilled his coffee all over his gown earlier he is eating ok right knee pain is improved today; no left knee pain denies dyspnea despite ongoing "noisy" breathing staff cont to see signs of aspiration in fact while I was talking with him he was frequently clearing his throat tele - pacing Review of Systems Review of Systems: cv - no chest pain GI - no abd pain pulm - some cough Physical Exam Physical Exam: gen - looks better, still with noisy breathing/audible wheezing, NAD otherwise mouth - MMM neck - no JVD heart - mechanical valve closure sound, RRR, s1 s2 lungs - inspiratory phase clear; moderate end-exp wheezes b/l - worse than yesterday; "quiet" tachypnea, subtle subcostal retractions - about the same; minimal rales bases abd - soft NT BS+; mildly distended - similar to prior ext - right foot deformity with inversion of entire foot; pulses 2+ b/l; trace edema b/l - a bit worse on left musculo - right knee with mild effusion but less tenderness to palpation or passive ROM today; left knee without warmth or tenderness psych - mildly confused Results & Data Results & Data Vital Signs (Past 12 Hours) Vital Signs Temp Pulse Pulse Resp BP Pulse Ox O2 Del Method 04/13/23 16:13 66 04/13/23 15:56 36.5 C 60 20 148/75 H 93 Room Air 04/13/23 11:21 36.4 C L 65 20 143/77 H 93 Room Air 04/13/23 07:54 36.9 C 66 20 156/74 H 95 Room Air 04/13/23 07:35 Room Air Laboratory Results Laboratory Results - last 24 hr 04/12/23 04/13/23 04/13/23 21:30 06:00 13:02 WBC 11.03 H RBC 3.67 L Hgb 11.6 L Hct 33.3 L MCV 90.7 MCH 31.6 MCHC 34.8 RDW Std Deviation 40.2 RDW Coeff of Cresencio 12.1 Plt Count 250 MPV 10.8 Immature Gran % (Auto) 0.7 Neut % (Auto) 75.8 Lymph % (Auto) 12.0 [place] % (Auto) 11.4 Eos % (Auto) 0.0 Baso % (Auto) 0.1 Neut # (Auto) 8.36 H Lymph # (Auto) 1.32 [place] # (Auto) 1.26 H Eos # (Auto) 0.00 Baso # (Auto) 0.01 Immature Gran # (Auto) 0.08 PT 23.9 H INR 2.3 H APTT 55.5 H* 80.0 H* 80.5 H* PTT Ratio 2.0 2.8 2.9 Sodium 131 L Potassium 4.2 Chloride 97 L Carbon Dioxide 27 Anion Gap 7 BUN 36 H Creatinine 1.51 H Est Cr Clr Drug Dosing 41.4 Est GFR ( Amer) 47.8 Est GFR (Non-Af Amer) 41.2 BUN/Creatinine Ratio 23.8 H Glucose 146 H Calcium 8.8 Lyme Disease IgG Ab Cancelled Lyme Disease IgM Ab Cancelled 04/13/23 14:23 WBC RBC Hgb Hct MCV MCH MCHC RDW Std Deviation RDW Coeff of Cresencio Plt Count MPV Immature Gran % (Auto) Neut % (Auto) Lymph % (Auto) [place] % (Auto) Eos % (Auto) Baso % (Auto) Neut # (Auto) Lymph # (Auto) [place] # (Auto) Eos # (Auto) Baso # (Auto) Immature Gran # (Auto) PT INR APTT PTT Ratio Sodium Potassium Chloride Carbon Dioxide Anion Gap BUN Creatinine Est Cr Clr Drug Dosing Est GFR ( Amer) Est GFR (Non-Af Amer) BUN/Creatinine Ratio Glucose Calcium Lyme Disease IgG Ab Negative Lyme Disease IgM Ab Negative PG Care Time/CCT Total # of Minutes Spent Total Time Spent with Patient: Total time spent is greater than 50% in coordination of care (as documented) at patient's floor/unit and/or counseling patient: Coding Level of Care Code 83984 SUB INP/OBS CARE 3/50MIN Diagnoses Dyspnea R06.00 Right knee pain M25.561 Left knee pain M25.562 Abdominal distension R14.0 Fever R50.9 Fever type: unspecified Deformity of right foot M21.961 Fall W19.XXXA Encounter type: initial encounter Ambulatory dysfunction R26.2 Idiopathic polyneuropathy G60.9 History of atrial fibrillation Z86.79 (HFpEF) heart failure with preserved ejection fraction I50.30 Restless leg syndrome G25.81 CKD (chronic kidney disease), stage III N18.30 Chronic kidney disease stage 3 subtype: unspecified whether 3a or 3b History of aortic valve replacement Z95.2 History of mitral valve replacement Z95.2 Dysphagia R13.10 (5) Fever Fever type: unspecified Qualified Code(s): R50.9 - Fever, unspecified (7) Fall Encounter type: initial encounter Qualified Code(s): W19.XXXA - Unspecified fall, initial encounter (13) CKD (chronic kidney disease), stage III Chronic kidney disease stage 3 subtype: unspecified whether 3a or 3b Qualified Code(s): N18.30 - Chronic kidney disease, stage 3 unspecified
[2023-04-13] MEDS: predniSONE 20 MG TAB PO SCH (20:23)
[2023-04-13] MEDS: MELATONIN 3 MG TAB PO PRN (20:23)
[2023-04-13] MEDS: ACETAMINOPHEN 325 MG TAB PO PRN (20:23)
[2023-04-13] MEDS: rOPINIRole HCL 0.25 MG TABLET PO SCH (20:24)
[2023-04-13] MEDS: ATORVASTATIN 20 MG TAB PO SCH (20:24)
[2023-04-13 21:33] LABS: Partial Thromboplastin Time 55.1 Seconds (21.0-31.0)
[2023-04-13] MEDS: cefTRIAXone SODIUM 2,000 MG in DEXTROSE 5 % MINI-B 50 ML IV SCH (22:27)
[2023-04-14 06:24] LABS: Basophils # (auto) 0.01 K/uL (0.00-0.20); Basophils % (auto) 0.1 %; Eosinophils # (auto) 0.01 K/uL (0.00-0.50); Eosinophils % (auto) 0.1 %; Hematocrit (blood only) 35.5 % (42.0-52.0); Hemoglobin 12.1 g/dl (14.0-18.0); Immature Granulocytes # (auto) 0.04 K/uL (0.01-0.20); Immature Granulocytes % (auto) 0.5 %; Lymphocytes # (auto) 1.01 K/uL (1.20-3.40); Lymphocytes % (auto) 11.6 %; Mean Corpuscular Hemoglobin 31.8 pg (25.0-34.0); Mean Corpuscular Hgb Conc 34.1 g/dL (32.0-36.0); Mean Corpuscular Volume 93.2 fL (80.0-100.0); Mean Platelet Volume 10.5 fL (9.4-12.4); Monocytes # (auto) 0.32 K/uL (0.11-0.59); Monocytes % (auto) 3.7 %; Neutrophils # (auto) 7.29 K/uL (1.40-6.50); Platelet Count 292 K/uL (130-400); RDW Coefficient of Variation 12.6 % (11.5-14.5); RDW Standard Deviation 43.1 fL (36.4-46.3); Red Blood Count 3.81 M/uL (4.70-6.10); White Blood Count 8.68 K/ul (4.8-10.8)
[2023-04-14 06:37] LABS: BUN Creatinine Ratio 28.1 (10-20); Calcium 9.1 mg/dl (8.6-10.3); Creatinine Clr Calc Pharmacy 45.5 ml/min; Est GFR (African American) 52.8 ml/min; Est GFR (Non-African American) 45.6 ml/min; Potassium 4.5 mmol/L (3.5-5.1)
[2023-04-14 07:03] LABS: Partial Thromboplastin Ratio 2.7
[2023-04-14] MEDS: DOXYCYCLINE HYCLATE 100 MG CAP PO SCH ×2 (09:05→20:28)
[2023-04-14] MEDS: UMECLIDINIUM/VILANTEROL 62.5/25MCG 7 PUFFS/INHALER INH SCH (09:05)
[2023-04-14] MEDS: SOTALOL HCL 80 MG TAB PO SCH (09:06)
[2023-04-14] MEDS: FOLIC ACID 400 MCG TAB PO SCH (09:06)
[2023-04-14] MEDS: predniSONE 20 MG TAB PO SCH (09:06)
[2023-04-14] MEDS: MAGNESIUM OXIDE 400 MG TAB PO SCH (09:06)
[2023-04-14] MEDS: HEPARIN SODIUM/DEXTROSE 25,000 UNITS/500 ML BAG IV SCH (09:11)
[2023-04-14] MEDS ORDERED: FUROSEMIDE 20 MG TAB PO ONE (09:59)
[2023-04-14] MEDS ORDERED: SPIRONOLACTONE 12.5 MG TAB PO ONE (09:59)
[2023-04-14] MEDS: VITAMIN B COMPLEX TAB PO SCH (10:25)
[2023-04-14 10:42] LABS: INR 3.1 (0.9-1.1); Prothrombin Time 31.4 Seconds (9.0-12.0)
[2023-04-14] MEDS: WARFARIN SOD 6 MG TAB PO SCH (16:27)
--- NOTE | 2023-04-14 19:57 | Hospitalist Progress Note ---
Date of Service April 14, 2023 Assessment & Plan (1) Dyspnea: Plan: much improved this is with combination of bronchodilators, antibiotics and steroids "noisy breathing" and other symptoms/signs improved CT chest with bronchial compression from large, bulky, calcified lymph nodes - chronic/seen on past CTs respiratory biofire negative remains on rocephin/doxy to cover typical/atypical bacterial pathogens if he has an infectious process of lungs day #5 rocephin day #3 doxy can likely d/c rocephin tomorrow - change to PO abx pulmonary recs appreciated cardiology consult appreciate --> does not appear current symptoms are due to cardiac cause of note - his problem list mentions restrictive lung disease as well as asthma there is reference to "interstitial nodular lung disease" cannot find an outpatient pulm note or PFTs to substantiate an asthmatic condition HOWEVER - symptoms improved with bronchodilators and steroids - cont prednisone 40mg daily (2) Right knee pain: Plan: pt initially had acute left knee pain early in the admission s/p arthrocentesis of L knee but crystal analysis was negative and culture negative now with right knee pain and effusion but improved with steroids rapid improvement with prednisone which is suggestive of inflammatory arthropathy still suspect pseudogout despite recent neg arthrocentesis on opposite knee (3) Left knee pain: Plan: appreciate [facility] Orth[facility] consultation s/p arthrocentesis L knee 40cc clear fluid WBCs from fluid not c/w septic joint gram stain negative and cx thus far negative crystal analysis surprisingly negative culture remains negative 2nd to trauma? pseudogout? (perhaps the crystal analysis was falsely negative?) other? either way it is improved see #2 re: right knee (4) Abdominal distension: Plan: checked KUB x-rays unremarkable consider CT a/p (5) Fever: Plan: etiology? 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 due to pain in knees leading to leg instability? brewing infectious process? neuropathy of legs? progressive neurological condition? PT, OT evals neurology consultation appreciated MRI alison w/ contrast on Sunday (8) Ambulatory dysfunction: Plan: Ambulates with a walker at baseline, wheelchair for distances Has seen neurology for polyneuropathy, R foot deformity, etc (last office visit was 09/2022 per scanned records - [facility]) Locally has seen Dr Real see above Re: brace (9) Idiopathic polyneuropathy: Plan: B12 level wnl neuropathy is chronic has had EMG studies in the past (11/2021 - showed mixed motor/sensory neuropathy of legs -- etiology uncertain) I can't see he has ever been trialed on lyrica or gabapentin strongly consider gabapentin for neuropathic pain (10) History of atrial fibrillation: Plan: Permanent dual AV pacemaker in place; 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 Stable; rate controlled PT/INR 1.9 on arrival Continue Coumadin; INR goal 2.5-3.5 INR 3.1 today - stop heparin IV Continue sotalol obtained pacemaker interrogation while here - per Dr Chaudhary, [facility], interrogation was wnl INR am (11) (HFpEF) heart failure with preserved ejection fraction: Plan: follows with [facility] attempts at diuresis hospital day #1 - no significant change in his clinical status - and creatinine simply julio with diuretics echo this admission with preserved EF and normal AV and MV function since Cr is better resume PO diuretics (12) Restless leg syndrome: Plan: Continue ropinirole (13) CKD (chronic kidney disease), stage III: Plan: baseline Cr of ~1.4 Cr 1.39 today BMP am for stability (14) History of aortic valve replacement: Plan: [facility] - [facility] (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 etiology of acute dysphagia? something neurological? MRI brain on Sunday as well Plan left message for pt's this evening cont PT/OT as able Admission and Anticipated Discharge Date Admission Date: April 10, 2023 Subjective pt feels better today b/l knee pain resolved dyspnea and wheezing improved still with throat clearing much more clear/mental status better today offers no new complaints Review of Systems Review of Systems: gen - no fevers or chills cv - no chest pain GI - no abd pain, nausea, emesis Physical Exam Physical Exam: gen - looks better, "noisy breathing"/audible wheezing improved today; mental status better today mouth - MMM neck - no JVD heart - mechanical valve closure sound, RRR, s1 s2 lungs - inspiratory phase clear; minimal end-exp wheezes b/l today -- overall improved; tachypnea and subtle subcostal retractions resolved abd - soft NT BS+; mildly distended - similar to prior ext - right foot deformity with inversion of entire foot; pulses 2+ b/l; no edema musculo - b/l knees NOT warm today; minimal effusions b/l; ROM improved b/l Results & Data Results & Data Vital Signs (Past 12 Hours) Vital Signs Temp Pulse Pulse Resp BP BP Pulse Ox 04/14/23 15:43 36.7 C 66 18 155/77 H 94 04/14/23 15:00 64 04/14/23 08:38 36.6 C 67 18 151/72 H 95 04/14/23 08:00 O2 Del Method 04/14/23 15:43 Room Air 04/14/23 15:00 04/14/23 08:38 Room Air 04/14/23 08:00 Room Air Laboratory Results Laboratory Results - last 24 hr 04/13/23 04/14/23 20:12 05:42 WBC 8.68 RBC 3.81 L Hgb 12.1 L Hct 35.5 L MCV 93.2 MCH 31.8 MCHC 34.1 RDW Std Deviation 43.1 RDW Coeff of Cresencio 12.6 Plt Count 292 MPV 10.5 Immature Gran % (Auto) 0.5 Neut % (Auto) 84.0 Lymph % (Auto) 11.6 [place] % (Auto) 3.7 Eos % (Auto) 0.1 Baso % (Auto) 0.1 Neut # (Auto) 7.29 H Lymph # (Auto) 1.01 L [place] # (Auto) 0.32 Eos # (Auto) 0.01 Baso # (Auto) 0.01 Immature Gran # (Auto) 0.04 PT 31.4 H INR 3.1 H APTT 55.1 H* 75.0 H* PTT Ratio 2.0 2.7 Sodium 134 L Potassium 4.5 Chloride 99 Carbon Dioxide 28 Anion Gap 7 BUN 39 H Creatinine 1.39 Est Cr Clr Drug Dosing 45.5 Est GFR ( Amer) 52.8 Est GFR (Non-Af Amer) 45.6 BUN/Creatinine Ratio 28.1 H Glucose 149 H Calcium 9.1 Total Creatine Kinase 192 Diagnostic Findings Blood and synovial fluid cx's negative PG Care Time/CCT Total # of Minutes Spent Total Time Spent with Patient: Total time spent is greater than 50% in coordination of care (as documented) at patient's floor/unit and/or counseling patient: Coding Level of Care Code 92324 SUB INP/OBS CARE 3/50MIN Diagnoses Dyspnea R06.00 Right knee pain M25.561 Left knee pain M25.562 Abdominal distension R14.0 Fever R50.9 Fever type: unspecified Deformity of right foot M21.961 Fall W19.XXXA Encounter type: initial encounter Ambulatory dysfunction R26.2 Idiopathic polyneuropathy G60.9 History of atrial fibrillation Z86.79 (HFpEF) heart failure with preserved ejection fraction I50.30 Restless leg syndrome G25.81 CKD (chronic kidney disease), stage III N18.30 Chronic kidney disease stage 3 subtype: unspecified whether 3a or 3b History of aortic valve replacement Z95.2 History of mitral valve replacement Z95.2 Dysphagia R13.10 (5) Fever Fever type: unspecified Qualified Code(s): R50.9 - Fever, unspecified (7) Fall Encounter type: initial encounter Qualified Code(s): W19.XXXA - Unspecified fall, initial encounter (13) CKD (chronic kidney disease), stage III Chronic kidney disease stage 3 subtype: unspecified whether 3a or 3b Qualified Code(s): N18.30 - Chronic kidney disease, stage 3 unspecified
[2023-04-14] MEDS: rOPINIRole HCL 0.25 MG TABLET PO SCH (20:28)
[2023-04-14] MEDS: ATORVASTATIN 20 MG TAB PO SCH (20:28)
[2023-04-14] MEDS: cefTRIAXone SODIUM 2,000 MG in DEXTROSE 5 % MINI-B 50 ML IV SCH (20:29)
[2023-04-15 06:17] LABS: BUN Creatinine Ratio 29.3 (10-20); Calcium 9.1 mg/dl (8.6-10.3); Creatinine Clr Calc Pharmacy 47.5 ml/min; Est GFR (African American) 55.7 ml/min; Est GFR (Non-African American) 48.1 ml/min; Potassium 4.4 mmol/L (3.5-5.1)
[2023-04-15 06:34] LABS: INR 4.2 (0.9-1.1); Prothrombin Time 42.3 Seconds (9.0-12.0)
[2023-04-15] MEDS: ACETAMINOPHEN 325 MG TAB PO PRN ×2 (07:18→15:16)
[2023-04-15] MEDS: UMECLIDINIUM/VILANTEROL 62.5/25MCG 7 PUFFS/INHALER INH SCH (08:13)
[2023-04-15] MEDS: VITAMIN B COMPLEX TAB PO SCH (08:13)
[2023-04-15] MEDS: DOXYCYCLINE HYCLATE 100 MG CAP PO SCH ×2 (08:13→20:19)
[2023-04-15] MEDS: SOTALOL HCL 80 MG TAB PO SCH (08:13)
[2023-04-15] MEDS: FOLIC ACID 400 MCG TAB PO SCH (08:13)
[2023-04-15] MEDS: FUROSEMIDE 20 MG TAB PO SCH (08:14)
[2023-04-15] MEDS: MAGNESIUM OXIDE 400 MG TAB PO SCH (08:14)
[2023-04-15] MEDS: predniSONE 20 MG TAB PO SCH (08:14)
[2023-04-15] MEDS: SPIRONOLACTONE 12.5 MG TAB PO SCH (08:16)
[2023-04-15] MEDS: DICLOFENAC SOD 1% GEL 100 GM TUBE EXT PRN (15:17)
[2023-04-15] MEDS: ATORVASTATIN 20 MG TAB PO SCH (20:19)
[2023-04-15] MEDS: rOPINIRole HCL 0.25 MG TABLET PO SCH (20:19)
--- NOTE | 2023-04-15 20:23 | Hospitalist Progress Note ---
Date of Service April 15, 2023 Assessment & Plan (1) Dyspnea: Plan: overall improved but still waxes/wanes yesterday he was very clear with minimal "noisy" breathing today it is worse this pattern suggests either intermittent aspiration with subsequent wheezing or bronchoconstriction from underlying lung disease or intermittent mucous plugging vs other CT chest with bronchial compression from large, bulky, calcified lymph nodes - chronic/seen on past CTs respiratory biofire negative remains on rocephin/doxy to cover typical/atypical bacterial pathogens if he has an infectious process of lungs day #6 rocephin day #4 doxy finish courses of 7 days each pulmonary recs appreciated cardiology consult appreciate --> does not appear current symptoms are due to cardiac cause of note - his problem list mentions restrictive lung disease as well as asthma there is reference to "interstitial nodular lung disease" cannot find an outpatient pulm note or PFTs to substantiate an asthmatic condition cont steroids (2) Right knee pain: Plan: pt initially had acute left knee pain early in the admission s/p arthrocentesis of L knee but crystal analysis was negative and culture negative now with right knee pain and effusion but improved with steroids rapid improvement with prednisone which is suggestive of inflammatory arthropathy still suspect pseudogout despite recent neg arthrocentesis on opposite knee (3) Left knee pain: Plan: appreciate [facility] Orth[facility] consultation s/p arthrocentesis L knee 40cc clear fluid WBCs from fluid not c/w septic joint gram stain negative and cx thus far negative crystal analysis surprisingly negative culture remains negative 2nd to trauma? pseudogout? (perhaps the crystal analysis was falsely negative?) other? either way it is improved see #2 re: right knee (4) Abdominal distension: Plan: checked [facility] x-rays unremarkable consider CT a/p if this persists but past CT a/p were largely unremarkable (5) Fever: Plan: etiology? had fever several days ago - no recurrence suspect pulmonary source given #1 above respiratory biofire negative L knee synovial fluid cx negative blood cx's negative urine cx negative remains on rocephin IV, doxy cont rocephin/doxy for pulm coverage given ongoing pulm symptoms (6) Deformity of right foot: Plan: previously worked up by neurology for such - both by out of town neurology as well as Dr David Real [facility] uncertain if polyneuropathy of legs is a "post-polio" type syndrome vs CMT vs post-transverse myelitis in the setting of prior COVID illness (09/2021) either way this is chronic reports current brace just causes pain needs new brace - will consult orthotics while here (7) Fall: Plan: occurred prior to admission etiology? due to pain in knees leading to leg instability? brewing infectious process? neuropathy of legs? progressive neurological condition? PT, OT evals neurology consultation appreciated MRI alison w/ contrast on Sunday (8) Ambulatory dysfunction: Plan: Ambulates with a walker at baseline, wheelchair for distances Has seen neurology for polyneuropathy, R foot deformity, etc (last office visit was 09/2022 per scanned records - [facility]) Locally has seen Dr Real see above Re: brace (9) Idiopathic polyneuropathy: Plan: B12 level wnl neuropathy is chronic has had EMG studies in the past (11/2021 - showed mixed motor/sensory neuropathy of legs -- etiology uncertain) I can't see he has ever been trialed on lyrica or gabapentin will trial gabapentin 100 BID (10) History of atrial fibrillation: Plan: Permanent dual AV pacemaker in place; 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 Stable; rate controlled PT/INR 1.9 on arrival INR today is high - hold coumadin; INR am Continue sotalol obtained pacemaker interrogation while here - per Dr Chaudhary, [facility], interrogation was wnl (11) (HFpEF) heart failure with preserved ejection fraction: Plan: follows with [facility] attempts at diuresis hospital day #1 - no significant change in his clinical status - and creatinine simply julio with diuretics echo this admission with preserved EF and normal AV and MV function diuretics have been resumed (12) Restless leg syndrome: Plan: Continue ropinirole (13) CKD (chronic kidney disease), stage III: Plan: baseline Cr of ~1.4 Cr 1.3 today BMP am for stability (14) History of aortic valve replacement: Plan: [facility] valve - 1994 (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 etiology of acute dysphagia? something neurological? MRI brain on Sunday as well Plan left message for pt's yesterday evening cont PT/OT Admission and Anticipated Discharge Date Admission Date: April 10, 2023 Subjective no events overnight was laying in bed during visit watching tV spent much of day in the chair denies dyspnea or ACEVEDO denies significant cough minimal L knee pain no R knee pain eating very well moving bowels Review of Systems Review of Systems: gen - no fevers or chills cv - no chest pain, no orthopnea (was lying relatively flat during visit) pulm - still wheezy but it is not bothersome to him Physical Exam Physical Exam: gen - looks good; "noisy breathing"/audible wheezing modestly worse today; mental status excellent today (of note - he had just finished his meal before I saw him) mouth - MMM neck - no JVD heart - mechanical valve closure sound, RRR, s1 s2 lungs - inspiratory phase clear; mild end-exp wheezes b/l; still with mild tachypnea and subtle subcostal retractions -- unnoticed by patient abd - soft NT BS+; mild-moderate distension unchanged ext - right foot deformity with inversion of entire foot; pulses 2+ b/l; trace edema b/l shins musculo - b/l knees NOT warm today; minimal effusions b/l; ROM intact; no tenderness Results & Data Results & Data Vital Signs (Past 12 Hours) Vital Signs Temp Pulse Pulse Resp BP BP Pulse Ox 04/15/23 19:49 36.8 C 60 133/73 93 04/15/23 14:00 60 04/15/23 11:44 36.7 C 59 L 18 144/83 H 93 O2 Del Method 04/15/23 19:49 Room Air 04/15/23 14:00 04/15/23 11:44 Room Air Laboratory Results Laboratory Results - last 24 hr 04/15/23 04/15/23 05:26 05:27 PT 42.3 H INR 4.2 H Sodium 137 Potassium 4.4 Chloride 103 Carbon Dioxide 29 Anion Gap 5 BUN 39 H Creatinine 1.33 Est Cr Clr Drug Dosing 47.5 Est GFR ( Amer) 55.7 Est GFR (Non-Af Amer) 48.1 BUN/Creatinine Ratio 29.3 H Glucose 114 H Calcium 9.1 PG Care Time/CCT Total # of Minutes Spent Total Time Spent with Patient: Total time spent is greater than 50% in coordination of care (as documented) at patient's floor/unit and/or counseling patient: Coding Level of Care Code 51682 SUB INP/OBS CARE 2/35MIN Diagnoses Dyspnea R06.00 Right knee pain M25.561 Left knee pain M25.562 Abdominal distension R14.0 Fever R50.9 Fever type: unspecified Deformity of right foot M21.961 Fall W19.XXXA Encounter type: initial encounter Ambulatory dysfunction R26.2 Idiopathic polyneuropathy G60.9 History of atrial fibrillation Z86.79 (HFpEF) heart failure with preserved ejection fraction I50.30 Restless leg syndrome G25.81 CKD (chronic kidney disease), stage III N18.30 Chronic kidney disease stage 3 subtype: unspecified whether 3a or 3b History of aortic valve replacement Z95.2 History of mitral valve replacement Z95.2 Dysphagia R13.10 (5) Fever Fever type: unspecified Qualified Code(s): R50.9 - Fever, unspecified (7) Fall Encounter type: initial encounter Qualified Code(s): W19.XXXA - Unspecified fall, initial encounter (13) CKD (chronic kidney disease), stage III Chronic kidney disease stage 3 subtype: unspecified whether 3a or 3b Qualified Code(s): N18.30 - Chronic kidney disease, stage 3 unspecified
[2023-04-15] MEDS: cefTRIAXone SODIUM 2,000 MG in DEXTROSE 5 % MINI-B 50 ML IV SCH (21:27)
[2023-04-16 06:43] LABS: BUN Creatinine Ratio 32.8 (10-20); Calcium 9.1 mg/dl (8.6-10.3); Creatinine Clr Calc Pharmacy 50.9 ml/min; Est GFR (Non-African American) 51.8 ml/min; Potassium 4.5 mmol/L (3.5-5.1)
[2023-04-16 07:21] LABS: INR 3.9 (0.9-1.1); Prothrombin Time 39.5 Seconds (9.0-12.0)
[2023-04-16] MEDS: SOTALOL HCL 80 MG TAB PO SCH (09:18)
[2023-04-16] MEDS: FOLIC ACID 400 MCG TAB PO SCH (09:18)
[2023-04-16] MEDS: DOXYCYCLINE HYCLATE 100 MG CAP PO SCH ×2 (09:18→20:12)
[2023-04-16] MEDS: FUROSEMIDE 20 MG TAB PO SCH (09:18)
[2023-04-16] MEDS: predniSONE 20 MG TAB PO SCH (09:19)
[2023-04-16] MEDS: MAGNESIUM OXIDE 400 MG TAB PO SCH (09:19)
[2023-04-16] MEDS: UMECLIDINIUM/VILANTEROL 62.5/25MCG 7 PUFFS/INHALER INH SCH (09:20)
[2023-04-16] MEDS: VITAMIN B COMPLEX TAB PO SCH (09:20)
[2023-04-16] MEDS: SPIRONOLACTONE 12.5 MG TAB PO SCH (09:20)
--- NOTE | 2023-04-16 12:22 | Fluoroscopy Report ---
VIDEO SWALLOW STUDY CLINICAL HISTORY: Aspiration. COMPARISON STUDY: No priors. FLUOROSCOPY TIME: 1.32 minutes. Ka,r: 21.2 mGy. FINDINGS: Fluoroscopic guidance provided to department of speech pathology in performing a video swal low study. The patient consumed barium impregnated pudding, cracker with paste, thickened liquids, an d thin barium while the swallowing mechanism was observed in real-time. No penetration or aspiration was seen with any of the sampled textures. Esophageal dysmotility is observed. IMPRESSION: No penetration or aspiration was seen. See dedicated speech pathology report for detailed findings and recommendations. Dictated: 04/16/2023 12:03 PM Transcribed: 04/16/2023 12:12 PM Makayla [id number] DEANN_Mark [id number] Electronically signed by: Jasson Vance M.D. 04/16/2023 12:21 PM
[2023-04-16] MEDS: SENNA 8.6 MG TAB PO SCH (13:15)
[2023-04-16] MEDS: GABAPENTIN 100 MG CAP PO SCH ×2 (13:15→20:11)
[2023-04-16] MEDS: POLYETHYLENE (MIRALAX) 17 GM PACK PO SCH (13:16)
--- NOTE | 2023-04-16 17:26 | Magnetic Resonance Report ---
MRI OF THE BRAIN WITHOUT AND WITH IV CONTRAST CLINICAL HISTORY: new onset dysphagia, dyspnea, falls COMPARISON STUDY: MRI of the brain November 04, 2021. Head CT April 10, 2023. TECHNIQUE: Utilizing a 1.5 Sheba magnet and dedicated coil, multiplanar, multiecho imaging of the br ain was performed pre and postcontrast administration. IV administration of 10.5 mL of Gadavist cont rast was uneventful. FINDINGS: There there are no foci of restricted diffusion to suggest acute infarct. No acute intracra nial hemorrhage, midline shift or mass effect is present. Basal cisterns are patent. There are no ext ra-axial collections. Flow-voids for the major intracranial vessels are present. There is no intracra nial mass or pathologic enhancement. Ventricular dilatation is unchanged. This is likely due to centr al atrophy. Moderate atrophy is noted. A few small white matter T2 hyperintense foci are noted. The a ppearance of the brain is similar to MRI November 04, 2021. IMPRESSION: 1. No acute intracranial findings. 2. No intracranial mass or pathologic enhancement. 3. No change in appearance of the brain since MRI of 11/04/2021. ACT 112: Negative or not required by law. Electronically signed by: Leo Pastrana M.D. 04/16/2023 5:25 PM
[2023-04-16] MEDS: PANTOprazole 40 MG TAB PO SCH ×2 (18:08→18:43)
[2023-04-16] MEDS: cefTRIAXone SODIUM 2,000 MG in DEXTROSE 5 % MINI-B 50 ML IV SCH (20:10)
[2023-04-16] MEDS: ATORVASTATIN 20 MG TAB PO SCH (20:11)
[2023-04-16] MEDS: rOPINIRole HCL 0.25 MG TABLET PO SCH (20:11)
--- NOTE | 2023-04-16 21:52 | Hospitalist Progress Note ---
Date of Service April 16, 2023 Assessment & Plan (1) Dyspnea: Plan: overall improved with steroids, bronchodilators, and antibiotics (rocephin/zithromax) CT chest this admission with bronchial compression from large, bulky, calcified lymph nodes - chronic/seen on past CTs - suggestive of old granulomatous disease (in the past he was told he may have had fungal infection years ago??) respiratory biofire negative I do suspect he had some form of infectious process of the lungs at time of admission (had fever early in the stay, etc) in the setting of the various chronic issues seen on CT chest Suspect some of his symptoms could be from the bronchial compression as well. day #7 rocephin today --> stop rocephin day #5 doxy --> stop after 7 days of such remains on prednisone 40mg daily suspect we can start weaning tomorrow given his improvement last 48 hours pulmonary recs appreciated; started on Anoro by pulmonary - seems to be helping. At discharge will recommend f/u with Dr Brett Narayanan - [facility] - with whom he has seen in the past. cardiology consult appreciate --> does not appear current symptoms are due to cardiac cause of note - his problem list mentions restrictive lung disease as well as asthma there is reference to "interstitial nodular lung disease" as well cannot find an outpatient pulm note or PFTs to substantiate an asthmatic condition either way send back to [facility] post-d/c as above (2) Right knee pain: Plan: pt initially had acute left knee pain early in the admission s/p arthrocentesis of L knee but crystal analysis was negative and culture negative now with right knee pain and effusion -- but improved with steroids despite the negative crystal analysis still possible he had b/l knee pseudogout flares alternatively this may have simply been from advanced OA either way ice, prednisone, etc will help his symptoms (3) Left knee pain: Plan: appreciate [facility] consultation s/p arthrocentesis L knee 40cc clear fluid WBCs from fluid not c/w septic joint gram stain negative and cx thus far negative crystal analysis surprisingly was negative culture was negative 2nd to trauma from his fall? pseudogout? (perhaps the crystal analysis was falsely negative?) advanced OA? either way both knees have improved (4) Abdominal distension: Plan: checked [facility] x-rays unremarkable consider CT a/p if this persists but past CT a/p were largely unremarkable he also denies ANY GI symptoms - no nausea, emesis, pain, etc (5) Fever: Plan: early in admission etiology? 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 due to pain in knees leading to leg instability? brewing infectious process? neuropathy of legs? progressive neurological condition? combination? PT, OT evals appreciated neurology consultation appreciated MRI alison w/ contrast today neg for acute findings needs rehab post-d/c (8) Ambulatory dysfunction: Plan: Ambulates with a walker at baseline, wheelchair for distances Has seen neurology for polyneuropathy, R foot deformity, etc (last office visit was 09/2022 per scanned records - [facility]) Locally has seen Dr Real see above Re: brace appreciate neuro consult while here MRI brain neg for acute findings today (9) Idiopathic polyneuropathy: Plan: B12 level wnl neuropathy is chronic has had EMG studies in the past (11/2021 - showed mixed motor/sensory neuropathy of legs -- etiology uncertain) I can't see he has ever been trialed on lyrica or gabapentin will trial gabapentin 100 BID to start (10) History of atrial fibrillation: Plan: Permanent dual AV pacemaker in place; 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 Stable; rate controlled PT/INR 1.9 on arrival INR today is high again - likely due to potentiation from abx - hold coumadin again; INR am Continue sotalol obtained pacemaker interrogation while here - per Dr Chaudhary, [facility], interrogation was wnl (11) (HFpEF) heart failure with preserved ejection fraction: Plan: follows with [facility] attempts at diuresis hospital day #1 - no significant change in his clinical status - and creatinine simply julio with diuretics echo this admission with preserved EF and normal AV and MV function diuretics have been resumed (12) Restless leg syndrome: Plan: Continue ropinirole (13) CKD (chronic kidney disease), stage III: Plan: baseline Cr of ~1.4 Cr 1.25 today BMP am for stability (14) History of aortic valve replacement: Plan: [employer] - [facility]ch valve - 1994 (2nd to bicuspid AV) INR goal is 2.5 to 3.5 last echo 04/2021 - valve appearing to be functioning normally repeat echo this admission with normal AV function see above re: coumadin (15) 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 Admission and Anticipated Discharge Date Admission Date: April 10, 2023 Subjective completed his video swallow and MRI brain today w/o any issue he is aware of results we did discuss that although the video swallow did not show any aspiration he had fairly severe esophageal dysmotility speech recommended consideration of PPI during the visit he reports feeling well had large BM earlier in the day minimal L knee pain only no R knee pain no abd pain denies dyspnea Review of Systems Review of Systems: gen - no fevers cv - no chest pain pulm - no cough, no dyspnea at rest; reports no dyspnea with walking to chair today GI - no N/V Physical Exam Physical Exam: gen - looks good; "noisy breathing"/audible wheezing better today mouth - MMM neck - no JVD heart - mechanical valve closure sound, RRR, s1 s2, no murmur lungs - inspiratory phase clear; faint end-exp wheezes b/l; still with mild tachypnea -- unnoticed by patient -- and "noisy" quality to his breathing abd - soft NT BS+; mild-moderate distension unchanged ext - right foot deformity with inversion of entire foot; pulses 2+ b/l; trace edema b/l shins musculo - b/l knees NOT warm today; minimal effusions b/l; ROM intact; no tenderness; lateral L knee -- small hematoma at site of prior arthrocentesis Results & Data Results & Data Vital Signs (Past 12 Hours) Vital Signs Temp Pulse Pulse Resp BP BP Pulse Ox 04/16/23 19:58 36.2 C L 61 18 161/87 H 94 04/16/23 18:00 04/16/23 16:26 36.5 C 60 16 134/70 94 04/16/23 15:00 61 O2 Del Method 04/16/23 19:58 Room Air 04/16/23 18:00 Room Air 04/16/23 16:26 Room Air 04/16/23 15:00 Laboratory Results Laboratory Results - last 24 hr 04/16/23 05:59 PT 39.5 H INR 3.9 H Sodium 137 Potassium 4.5 Chloride 105 Carbon Dioxide 28 Anion Gap 4 BUN 41 H Creatinine 1.25 Est Cr Clr Drug Dosing 50.9 Est GFR ( Amer) 60.0 Est GFR (Non-Af Amer) 51.8 BUN/Creatinine Ratio 32.8 H Glucose 86 Calcium 9.1 Diagnostic Findings Brain MRI 04/16/23 08:00 MRI OF THE BRAIN WITHOUT AND WITH IV CONTRAST CLINICAL HISTORY: new onset dysphagia, dyspnea, falls COMPARISON STUDY: MRI of the brain November 04, 2021. Head CT April 10, 2023. TECHNIQUE: Utilizing a 1.5 Sheba magnet and dedicated coil, multiplanar, multiecho imaging of the brain was performed pre and postcontrast administration. IV administration of 10.5 mL of Gadavist contrast was uneventful. FINDINGS: There there are no foci of restricted diffusion to suggest acute infarct. No acute intracranial hemorrhage, midline shift or mass effect is present. Basal cisterns are patent. There are no extra-axial collections. Flow- voids for the major intracranial vessels are present. There is no intracranial mass or pathologic enhancement. Ventricular dilatation is unchanged. This is l ikely due to central atrophy. Moderate atrophy is noted. A few small white matter T2 hyperintense foci are noted. The appearance of the brain is similar to MRI November 04, 2021. IMPRESSION: 1. No acute intracranial findings. 2. No intracranial mass or pathologic enhancement. 3. No change in appearance of the brain since MRI of 11/04/2021. ACT 112: Negative or not required by law. Electronically signed by: Leo Pastrana M.D. 04/16/2023 5:25 PM Videofluoroscopic Swallow 04/16/23 08:44 VIDEO SWALLOW STUDY CLINICAL HISTORY: Aspiration. COMPARISON STUDY: No priors. FLUOROSCOPY TIME: 1.32 minutes. Ka,r: 21.2 mGy. FINDINGS: Fluoroscopic guidance provided to department of speech pathology in performing a video swallow study. The patient consumed barium impregnated pudding, cracker with paste, thickened liquids, and thin barium while the swallowing mechanism was observed in real-time. No penetration or aspiration was seen with any of the sampled textures. Esophageal dysmotility is observed. IMPRESSION: No penetration or aspiration was seen. See dedicated speech pathology report for detailed findings and recommendations. Dictated: 04/16/2023 12:03 PM Transcribed: 04/16/2023 12:12 PM Makayla [id number] DEANN_Mark [id number] Electronically signed by: Jasson Vance M.D. 04/16/2023 12:21 PM PG Care Time/CCT Total # of Minutes Spent Total Time Spent with Patient: Total time spent is greater than 50% in coordination of care (as documented) at patient's floor/unit and/or counseling patient: Coding Level of Care Code 58724 SUB INP/OBS CARE 3/50MIN Diagnoses Dyspnea R06.00 Right knee pain M25.561 Left knee pain M25.562 Abdominal distension R14.0 Fever R50.9 Fever type: unspecified Deformity of right foot M21.961 Fall W19.XXXA Encounter type: initial encounter Ambulatory dysfunction R26.2 Idiopathic polyneuropathy G60.9 History of atrial fibrillation Z86.79 (HFpEF) heart failure with preserved ejection fraction I50.30 Restless leg syndrome G25.81 CKD (chronic kidney disease), stage III N18.30 Chronic kidney disease stage 3 subtype: unspecified whether 3a or 3b History of aortic valve replacement Z95.2 History of mitral valve replacement Z95.2 Dysphagia R13.10 Esophageal dysmotility K22.4 (5) Fever Fever type: unspecified Qualified Code(s): R50.9 - Fever, unspecified (7) Fall Encounter type: initial encounter Qualified Code(s): W19.XXXA - Unspecified fall, initial encounter (13) CKD (chronic kidney disease), stage III Chronic kidney disease stage 3 subtype: unspecified whether 3a or 3b Gene lified Code(s): N18.30 - Chronic kidney disease, stage 3 unspecified
[2023-04-17] MEDS: PANTOprazole 40 MG TAB PO SCH (10:16)
[2023-04-17] MEDS: DOXYCYCLINE HYCLATE 100 MG CAP PO SCH ×2 (10:16→20:07)
[2023-04-17] MEDS: MAGNESIUM OXIDE 400 MG TAB PO SCH (10:16)
[2023-04-17] MEDS: FUROSEMIDE 20 MG TAB PO SCH (10:17)
[2023-04-17] MEDS: VITAMIN B COMPLEX TAB PO SCH (10:17)
[2023-04-17] MEDS: predniSONE 20 MG TAB PO SCH (10:17)
[2023-04-17] MEDS: GABAPENTIN 100 MG CAP PO SCH ×2 (10:17→20:07)
[2023-04-17] MEDS: SOTALOL HCL 80 MG TAB PO SCH (10:17)
[2023-04-17] MEDS: SPIRONOLACTONE 12.5 MG TAB PO SCH (10:18)
[2023-04-17] MEDS: POLYETHYLENE (MIRALAX) 17 GM PACK PO SCH (10:18)
[2023-04-17] MEDS: FOLIC ACID 400 MCG TAB PO SCH (10:18)
[2023-04-17] MEDS: SENNA 8.6 MG TAB PO SCH (10:18)
[2023-04-17] MEDS: UMECLIDINIUM/VILANTEROL 62.5/25MCG 7 PUFFS/INHALER INH SCH (10:18)
[2023-04-17 13:43] LABS: BUN Creatinine Ratio 28.6 (10-20); Calcium 9.1 mg/dl (8.6-10.3); Creatinine Clr Calc Pharmacy 43.5 ml/min; Est GFR (African American) 49.4 ml/min; Est GFR (Non-African American) 42.6 ml/min; Potassium 4.3 mmol/L (3.5-5.1)
[2023-04-17 13:56] LABS: Prothrombin Time 21.3 Seconds (9.0-12.0)
[2023-04-17] MEDS ORDERED: WARFARIN SOD 4 MG TAB PO SCH (16:00)
--- NOTE | 2023-04-17 19:03 | Hospitalist Progress Note ---
Date of Service April 17, 2023 Assessment & Plan (1) Dyspnea: Plan: overall improved with steroids, bronchodilators, and antibiotics (rocephin/zithromax) CT chest this admission with bronchial compression from large, bulky, calcified lymph nodes - chronic/seen on past CTs - suggestive of old granulomatous disease (in the past he was told he may have had fungal infection years ago??) respiratory biofire negative I do suspect he had some form of infectious process of the lungs at time of admission (had fever early in the stay, etc) in the setting of the various chronic issues seen on CT chest Suspect some of his symptoms could be from the bronchial compression as well. completed 7 days of ceftriaxone day 6/7 of doxycycline decrease prednisone to 20 mg daily tomorrow pulmonary recs appreciated; started on Anoro by pulmonary - seems to be helping. At discharge will recommend f/u with Dr Brett Narayanan - [facility] - with whom he has seen in the past. cardiology consult appreciate --> does not appear current symptoms are due to cardiac cause of note - his problem list mentions restrictive lung disease as well as asthma there is reference to "interstitial nodular lung disease" as well cannot find an outpatient pulm note or PFTs to substantiate an asthmatic condition either way send back to [facility] post-d/c as above (2) Right knee pain: Plan: pt initially had acute left knee pain early in the admission s/p arthrocentesis of L knee but crystal analysis was negative and culture negative now with right knee pain and effusion -- but improved/ resolving with steroids despite the negative crystal analysis still possible he had b/l knee pseudogout flares alternatively this may have simply been from advanced OA either way ice, prednisone, etc will help his symptoms (3) History of aortic valve replacement: Plan: [employer] - [facility] valve - 1994 (2nd to bicuspid AV) chronic anticoagulation INR goal is 2.5 to 3.5 INR today is 2.0, resumed Coumadin at 4 mg dose for today and discussed with pharmacist, INR in a.m. if remaining still subtherapeutic might need bridging last echo 04/2021 - valve appearing to be functioning normally repeat echo this admission with normal AV function (4) Left knee pain: Plan: appreciate [facility] consultation s/p arthrocentesis L knee 40cc clear fluid WBCs from fluid not c/w septic joint gram stain negative and cx thus far negative crystal analysis surprisingly was negative culture was negative 2nd to trauma from his fall? pseudogout? (perhaps the crystal analysis was falsely negative?) advanced OA? either way both knees have improved (5) Abdominal distension: Plan: checked [facility] x-rays unremarkable he also denies ANY GI symptoms - no nausea, emesis, pain, etc tolerating general diet (6) Fever: Plan: early in admission, resolved suspect pulmonary source given #1 above respiratory biofire negative L knee synovial fluid cx negative blood cx's negative urine cx negative (7) Deformity of right foot: Plan: previously worked up by neurology for such - both by out of town neurology ([facility]) as well as Dr David Real, [facility] uncertain if polyneuropathy of legs is a "post-polio" type syndrome vs CMT vs post-transverse myelitis in the setting of prior COVID illness (09/2021) either way this is chronic reports current brace for right foot just causes pain needs new brace - consulted orthotics they did see him last week but they recommended a dedicated office visit as outpatient as his brace will need custom fitting (8) Fall: Plan: occurred prior to admission etiology? due to pain in knees leading to leg instability? brewing infectious process? neuropathy of legs? progressive neurological condition? combination? PT, OT evals appreciated neurology consultation appreciated MRI alison w/ contrast neg for acute findings needs rehab post-d/c (9) Ambulatory dysfunction: Plan: Ambulates with a walker at baseline, wheelchair for distances Has seen neurology for polyneuropathy, R foot deformity, etc (last office visit was 09/2022 per scanned records - [facility]) Locally has seen Dr Real see above Re: brace appreciate neuro consult while here MRI brain neg for acute findings (10) Idiopathic polyneuropathy: Plan: B12 level wnl neuropathy is chronic has had EMG studies in the past (11/2021 - showed mixed motor/sensory neuropathy of legs -- etiology uncertain) I can't see he has ever been trialed on lyrica or gabapentin will trial gabapentin 100 BID - possibly some improvement in pain, discussed trial of a few weeks with the patient and his , would keep dose very low given his CKD advanced age and gait instability, discussed potential side effects of sleepiness drowsiness especially (11) History of atrial fibrillation: Plan: Permanent dual AV pacemaker in place; 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 Stable; rate controlled anticoagulated on Coumadin Continue sotalol obtained pacemaker interrogation while here - per Dr Chaudhary, [facility], interrogation was wnl (12) (HFpEF) heart failure with preserved ejection fraction: Plan: follows with [facility] attempts at diuresis hospital day #1 - no significant change in his clinical status - and creatinine simply julio with diuretics echo this admission with preserved EF and normal AV and MV function diuretics have been resumed, appears euvolemic (13) Restless leg syndrome: Plan: Continue ropinirole (14) CKD (chronic kidney disease), stage III: Plan: baseline Cr of ~1.4 stable today (15) 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 (16) Dysphagia: Plan: speech therapy consult appreciated despite modification to diet staff & pt's cont to notice problems with swallowing speech therapy performed video swallow today -- NO ASPIRATION seen esophageal dysmotility identified speech recommended consideration of PPI for GERD (17) Esophageal dysmotility: Plan: as seen on video swallow study this admission GERD along with esophageal dysmotility is the likely cause of constant throat clearing start protonix 40mg daily and see how he does Plan updated his at bedside 04/09 cont PT/OT dispo - rehab at SNF Admission and Anticipated Discharge Date Admission Date: April 10, 2023 Subjective doing much better. Bilateral knee pain improved, knees remain swollen. His reports that he had a similar episode of acute knee pain and swelling in the past that resolved in the interim he has some mild osteoarthritis type knee pain but not like it was over the past week prior to admission. His leg pain from neuropathy is possibly improved with the addition of gabapentin. He has had resolution of shortness of breath no cough or chest pain Physical Exam 2 Physical Exam: PHYSICAL EXAMINATION Last 24h vital signs reviewed, see documentation in flowsheet General: comfortable appearing, no distress, sitting up in the chair his is at the side HEENT: Normocephalic, atraumatic, pupils round and equal, sclerae anicteric, no conjunctival injection, moist mucus membranes skin warm dry no rashes, no erythema on the skin of his legs Lungs: Normal respiratory effort. Clear to auscultation bilaterally. No RRW Heart: Regular rate and rhythm, no murmurs. No JVD Abdomen: Soft, nontender, nondistended. Bowel sounds present. Extremities: Warm, dry, well-perfused. No extremity edema. bilateral knee effusions are present, there is no warmth erythema or tenderness Neuro: Alert and oriented x 4, face symmetric, moves 4 extremities well Psych: Normal affect and behavior Results & Data Results & Data Vital Signs (Past 12 Hours) Vital Signs Temp Pulse Resp BP Pulse Ox O2 Del Method 04/17/23 15:25 36.9 C 71 18 153/88 H 94 Room Air 04/17/23 11: 36.3 C L 59 L 18 149/79 H 94 Room Air 04/17/23 10:43 Room Air 04/17/23 07:21 36.8 C 60 18 160/79 H 94 Room Air Laboratory Results 04/14/23 05:42 04/17/23 12:58 PG Care Time/CCT Total # of Minutes Spent Total Time Spent with Patient: Total time spent is greater than 50% in coordination of care (as documented) at patient's floor/unit and/or counseling patient: Coding Level of Care Code 93167 SUB INP/OBS CARE 2/35MIN Diagnoses Dyspnea R06.00 Right knee pain M25.561 History of aortic valve replacement Z95.2 Left knee pain M25.562 Abdominal distension R14.0 Fever R50.9 Fever type: unspecified Deformity of right foot M21.961 Fall W19.XXXA Encounter type: initial encounter Ambulatory dysfunction R26.2 Idiopathic polyneuropathy G60.9 History of atrial fibrillation Z86.79 (HFpEF) heart failure with preserved ejection fraction I50.30 Restless leg syndrome G25.81 CKD (chronic kidney disease), stage III N18.30 Chronic kidney disease stage 3 subtype: unspecified whether 3a or 3b History of mitral valve replacement Z95.2 Dysphagia R13.10 Esophageal dysmotility K22.4 (6) Fever Fever type: unspecified Qualified Code(s): R50.9 - Fever, unspecified (8) Fall Encounter type: initial encounter Qualified Code(s): W19.XXXA - Unspecified fall, initial encounter (14) CKD (chronic kidney disease), stage III Chronic kidney disease stage 3 subtype: unspecified whether 3a or 3b Qualified Code(s): N18.30 - Chronic kidney disease, stage 3 unspecified
[2023-04-17] MEDS: ATORVASTATIN 20 MG TAB PO SCH (20:07)
[2023-04-17] MEDS: rOPINIRole HCL 0.25 MG TABLET PO SCH (20:07)
[2023-04-17] MEDS: ACETAMINOPHEN 325 MG TAB PO PRN (23:19)
[2023-04-18 07:01] LABS: INR 1.7 (0.9-1.1); Prothrombin Time 17.9 Seconds (9.0-12.0)
[2023-04-18] MEDS ORDERED: predniSONE 20 MG TAB PO SCH (09:00)
[2023-04-18] MEDS: FUROSEMIDE 20 MG TAB PO SCH (09:06)
[2023-04-18] MEDS: MAGNESIUM OXIDE 400 MG TAB PO SCH (09:06)
[2023-04-18] MEDS: GABAPENTIN 100 MG CAP PO SCH (09:06)
[2023-04-18] MEDS: DOXYCYCLINE HYCLATE 100 MG CAP PO SCH (09:06)
[2023-04-18] MEDS: SOTALOL HCL 80 MG TAB PO SCH (09:06)
[2023-04-18] MEDS: SENNA 8.6 MG TAB PO SCH (09:07)
[2023-04-18] MEDS: SPIRONOLACTONE 12.5 MG TAB PO SCH (09:07)
[2023-04-18] MEDS: POLYETHYLENE (MIRALAX) 17 GM PACK PO SCH (09:07)
[2023-04-18] MEDS: FOLIC ACID 400 MCG TAB PO SCH (09:07)
[2023-04-18] MEDS: PANTOprazole 40 MG TAB PO SCH (09:07)
[2023-04-18] MEDS: VITAMIN B COMPLEX TAB PO SCH (09:07)
[2023-04-18] MEDS ORDERED: ENOXAPARIN 1 MG/KG SC SCH (09:45)
[2023-04-18] MEDS ORDERED: ENOXAPARIN INJ 120 MG/0.8 ML SYR SQ SCH (10:00)
[2023-04-18] MEDS: UMECLIDINIUM/VILANTEROL 62.5/25MCG 7 PUFFS/INHALER INH SCH (11:01)
--- NOTE | 2023-04-18 11:58 | Discharge Summary ---
Date of Service April 18, 2023 Admission HPI Per Admitting Provider Musa is an 87-year-old male with PMH of CAD, BPH, CKD stage III, A-fib/flutter, permanent pacemaker, HFpEF, pseudogout, plantar fasciitis of the left foot, idiopathic polyneuropathy, and chronic obstructive asthma. He presented for bilateral worsening knee pain/weakness that led to a left-sided GL fall on 04/08 at 1999. Patient is on Coumadin for A-fib. Denies LOC. Denies head strike. Denies dizziness, lightheadedness, tripping. Patient took all medications today 04/09. Uses a walker at baseline, in a wheelchair for distance. He did not take any medication at home for pain. Patient also endorses "burning" pain in both his feet that started shortly after ED arrival; hx of gout/pseudogout; does not take medication for gout. Patient is UTD on COVID shots + boosters. Patient denies need for pain medicine at time of exam. Vitals stable at time of admission. ED course: Acetaminophen 1000 mg IV ROS: Patient endorses frequent urination, and weakness/numbness/tingling in LEs (worse in left). Patient denies fever, chills, RANGEL, dizziness, lightheadedness, CP, SOB, abdominal pain, N/V/D, burning with urination, or blood in stool/urine. Coumadin schedule: 4mg on sun/Sun/ 6mg on Sun/Sun/Sun/Sat No PMHx of DVT/PE, [place], CVA, diabetes, cancer Discharge Exam PHYSICAL EXAMINATION Last 24h vital signs reviewed, see documentation in flowsheet General: comfortable appearing, no distress, lying in bed awake HEENT: Normocephalic, atraumatic, pupils round and equal, sclerae anicteric, no conjunctival injection, moist mucus membranes skin warm dry no rashes, no erythema on the skin of his legs Lungs: Normal respiratory effort. Clear to auscultation bilaterally. No RRW Heart: Regular rate and rhythm, no murmurs mech valve sounds. No JVD Abdomen: Soft, nontender, nondistended. Bowel sounds present. Extremities: Warm, dry, well-perfused. trace extremity edema. bilateral knee effusions have resolved, there is no warmth erythema or tenderness Neuro: Alert and oriented x 4, face symmetric, moves 4 extremities well Psych: Normal affect and behavior Discharge Data Allergies Allergy/AdvReac Type Severity Reaction Status Date / Time Penicillins Allergy Intermediate RASH Verified 01/10/23 11:38 Consultations 04/09/23 14:30 ED Decision to Admit Stat 04/10/23 11:42 Consult Orthopedic Surgery Routine 04/11/23 14:45 Consult Pulmonology Routine 04/12/23 08:56 Consult Cardiology Routine 04/13/23 08:16 Consult Neurology Routine Ordered Studies 04/09/23 11:23 CT head/brain wo con Stat 04/10/23 20:44 CT head/brain wo con Urgent 04/10/23 20:50 CT chest diagnostic wo con Urgent 04/16/23 08:00 MR brain wo/w con Routine 04/16/23 08:44 FL video swallow Routine Femur X-Ray 04/09/23 11:23 XR femur LT 2V routine CLINICAL HISTORY: fall TECHNIQUE: 2 radiographic views of the left femur were obtained. Comparison: Comparison is made to left hip radiographs 04/09/2023 FINDINGS: There is no evidence of an acute fracture. The visualized portion of the hip and knee joints are unremarkable. The soft tissues are unremarkable. IMPRESSION: No evidence of acute bony injury. ACT 112: Negative or not required by law. Electronically signed by: Brandon Flowers M.D. 04/09/2023 1:[address] 04/09/23 11:23 CT SCAN OF THE BRAIN WITHOUT IV CONTRAST CLINICAL HISTORY: Fall. COMPARISON STUDY: CT of the brain dated 11/03/2021. TECHNIQUE: Unenhanced axial CT scan of the brain is performed from the vertex to the skull base. A dose lowering technique was utilized adhering to the principles of ALARA. CT DOSE: 1000.44 mGy.cm FINDINGS: Brain parenchyma: There is age-related involutional change noting mild subcortical and periventricular microangiopathic disease. There is no hemorrhage, mass effect, or evidence of acute territorial ischemia by CT criteria. Leonard-white matter differentiation is preserved. No extra-axial fluid collection is seen. Ventricles, sulci, cisterns: Prominent secondary to involutional change. Intracranial vasculature: There is atherosclerotic calcification of the cavernous carotid and vertebral arteries. Calvarium: The skeletal structures are osteopenic. No depressed calvarial fracture is seen. Sinuses and mastoids: The visualized paranasal sinuses are clear. The mastoid air cells are well pneumatized. Orbits: The bony orbits are grossly intact. There are bilateral ocular lens implants. IMPRESSION: There is no hemorrhage, mass effect, or evidence of acute territorial ischemia by CT criteria. ACT 112: Negative or not required by law. Electronically signed by: Jasson Vance M.D. 04/09/2023 12:21 PM Hip/Pelvis X-Ray 04/09/23 11:23 SINGLE VIEW PELVIS; 2 VIEWS LEFT HIP CLINICAL HISTORY: Fall. Left leg pain. FINDINGS: An AP view of the pelvis with AP and frog-leg views of the left hip are compared to study dated 10/31/2017. Correlation is made with pelvic CT dated 07/14/2021. The skeletal structures are osteopenic. There is no radiographic evidence of acute fracture involving the hips or bony pelvis. Mild arthritic change and joint space narrowing is seen in the hips. Mild irregularity involving the lesser trochanter of the left proximal femur is unchanged. There is degenerative sclerosis of the sacroiliac joints and pubic symphysis. The overlying soft tissues are within normal limits. Postsurgical change projects over the groin bilaterally. There is atherosclerotic calcification of the femoral arteries. IMPRESSION: No acute bony abnormality is identified. Electronically signed by: Jasson Vance M.D. 04/09/2023 1:39 PM Knee X-Ray 04/09/23 11:23 XR knee RT 3V CLINICAL HISTORY: fall. Right knee pain. COMPARISON STUDY: Right knee 07/13/2021. FINDINGS: No acute fracture or dislocation within the right knee. There is a small right knee effusion. Chondrocalcinosis is again noted. There is severe osteoarthritis at the lateral patellofemoral joint. Mild degenerative changes seen throughout the remaining compartments of the right knee. There are mild vascular calcifications. Mild anterior soft tissue swelling. IMPRESSION: 1. No acute fracture or dislocation within the right knee. 2. Chondrocalcinosis and degenerative changes again noted. 3. Anterior soft tissue swelling. 4. Small right knee effusion. This has improved. ACT 112: Negative or not required by law. Electronically signed by: Andrea Sahu M.D. 04/09/2023 1:21 PM Knee X-Ray 04/09/23 11:23 LEFT KNEE 2 VIEWS CLINICAL HISTORY: Fall. Left knee injury. FINDINGS: AP and crosstable lateral views of the left knee are obtained. No prior studies are available for comparison at the time of dictation. The skeletal structures are osteopenic. No fracture is seen. There is mild tricompartmental degenerative joint space narrowing. There is chondrocalcinosis in the medial and lateral compartments. A joint effusion is observed. There is prepatellar soft tissue swelling. Atherosclerotic calcification is noted in the popliteal artery. IMPRESSION: 1. Soft tissue swelling and joint effusion with no acute bony abnormality identified. 2. Mild degenerative change and chondrocalcinosis as above. Electronically signed by: Jasson Vance M.D. 04/09/2023 1:56 PM Ribs w/Chest X-Ray 04/09/23 11:23 AP CHEST WITH LEFT-SIDED RIB SERIES CLINICAL HISTORY: Fall. Left-sided chest wall pain. FINDINGS: 3 AP supine chest radiographs with 5 additional views from a left- sided rib series is compared to study dated 01/10/2023 and correlated with chest CT dated 07/13/2021. The patient is status post midline sternotomy. Epicardial leads are in place. The heart is enlarged noting atherosclerotic calcification of the thoracic aorta. There is mild pulmonary vascular congestion. Small pleural effusions are suspected with bibasilar scarring/atelectasis. Segmental atelectasis is again seen in the right middle lobe. No pneumothorax is seen. The skeletal structures are osteopenic. There is no radiographic evidence of acute/displaced left-sided rib fracture on the rib series. There is chronic deformity of the left fifth rib. The remainder of the bony thorax is grossly intact. IMPRESSION: 1. Cardiomegaly and cardiac pacemaker with pulmonary vascular congestion. 2. Suspect small pleural effusions. 3. Segmental atelectasis is again seen in the right middle lobe. 4. There is no radiographic evidence of acute/displaced left-sided rib fracture on the rib series. ACT 112: Negative or not required by law. Electronically signed by: Jasson Vance M.D. 04/09/2023 1:36 PM Shoulder X-Ray 04/09/23 11:24 XR shoulder LT min 2V routine CLINICAL HISTORY: fall TECHNIQUE: 3 views of the right shoulder were obtained. Comparison: Comparison is made to right shoulder radiograph 07/12/2021 FINDINGS: There is no evidence of an acute fracture. Joint spaces are well-preserved. The overlying soft tissues are unremarkable. The visualized portions of the lungs are clear. IMPRESSION: No evidence of acute osseous injury. ACT 112: Negative or not required by law. Electronically signed by: Brandon Flowers M.D. 04/09/2023 1:47 PM Chest X-Ray 04/10/23 18:11 XR chest 2V PA/lateral HISTORY: dyspnea, wheezing, CHF?? COMPARISON: Chest and left rib series 04/09/2023. FINDINGS: No pneumothorax. There are low lung volumes. There is a small right pleural effusion which has developed in the interval. There is perihilar interstitial/vascular thickening which has progressed. This is consistent with mild pulmonary edema. Perihilar hazy airspace opacities is likely due to the pulmonary edema. The heart remains enlarged. There are poststernotomy changes, left-sided pacemaker, and a cardiac valve prosthesis again noted. IMPRESSION: 1. Cardiomegaly and mild pulmonary edema. This has progressed in the interval. 2. Small right pleural effusion. 3. Perihilar hazy airspace opacities is likely due to the pulmonary edema. A superimposed pneumonia would be difficult to exclude. ACT 112: Negative or not required by law. Electronically signed by: Andrea Sahu M.D. 04/10/2023 6:[address] 04/10/23 20:44 Exam(s): CT HEAD Without Contrast EXAM: CT Head Without Intravenous Contrast CLINICAL HISTORY: Reason for exam: change in mental status. TECHNIQUE: Axial computed tomography images of the head/brain without intravenous contrast. Automated exposure control was utilized for the study. A dose lowering technique was utilized adhering to the principles of ALARA. COMPARISON: CT head 04/09/2023. FINDINGS: Brain: Global parenchymal volume loss with chronic microvascular ischemic changes. No hemorrhage. Ventricles: No ventriculomegaly. Bones/joints: Unremarkable. No acute fracture. Soft tissues: Unremarkable. Sinuses: Unremarkable as visualized. Mastoid air cells: Unremarkable as visualized. No mastoid effusion. Orbits: Bilateral lens replacement. IMPRESSION: 1. No intracranial hemorrhage or other acute intracranial abnormality identified. 2. Global parenchymal volume loss with chronic microvascular ischemic changes. Electronically signed by: Hilario Grayson MD 04/10/23 22:[address] 04/10/23 20:50 Exam(s): CT CHEST Without Contrast EXAM: CT Chest Without Intravenous Contrast CLINICAL HISTORY: Reason for exam: worsening respiratory status. TECHNIQUE: Axial computed tomography images of the chest without intravenous contrast. Automated exposure control was utilized for the study. A dose lowering technique was utilized adhering to the principles of ALARA. COMPARISON: CT chest 07/13/2021. FINDINGS: Lungs: See below. Pleural space: Small right pleural effusion. No pneumothorax. Heart: Cardiomegaly. Postsurgical change from prior mitral valve replacement. No significant pericardial effusion. No significant coronary artery calcifications. Mediastinum: Bulky partially calcified mediastinal and hilar lymph nodes, presumably related to granulomatous disease, unchanged from prior examination. There is associated compression of the bronchi with distal atelectasis. Bones/joints: Degenerative changes in the spine and shoulders. No acute fracture. No dislocation. Soft tissues: Unremarkable. Vasculature: Extensive atherosclerotic calcification of the [place] coronary arteries status post coronary artery bypass surgery. No thoracic aortic aneurysm. Lymph nodes: See above. Tubes, lines and devices: Cardiac pacemaker. IMPRESSION: 1. Bulky calcified lymphadenopathy compressing the bronchi resulting in distal atelectasis. Superimposed infection not excluded. Clinical correlation is recommended. 2. Small right pleural effusion. Electronically signed by: Hilario Grayson MD 04/10/23 22:40 PM Chest X-Ray 04/12/23 17:47 XR chest 1V portable CLINICAL HISTORY: dyspnea, interval change TECHNIQUE: Single frontal radiograph of the chest was obtained. Comparison: Comparison is made to chest radiograph 04/10/2023 FINDINGS: Median sternotomy wires are unchanged. Pacemaker is noted. Cardiomegaly is noted. The aortic arch is calcified. Mitral valvular prosthesis is noted. Faint bibasilar airspace opacities are seen. No evidence of pleural effusion or pneumothorax. IMPRESSION: Faint bibasilar airspace opacities which may represent atelectasis, pneumonia, and/or aspiration. No definite radiographic evidence of previously noted pleural effusions. Stable cardiomegaly. ACT 112: Negative or not required by law. Electronically signed by: Brandon Flowers M.D. 04/12/2023 7:41 PM KUB X-Ray 04/12/23 17:47 XR KUB/Abdomen 1 view CLINICAL HISTORY: abd distension TECHNIQUE: 1 view of the abdomen was obtained. Comparison: None available at the time of this dictation. FINDINGS: Lung bases are unremarkable. Degenerative changes are seen in the visualized skeleton. The bowel gas pattern is nonobstructive. Small stool burden is seen. IMPRESSION: Nonobstructive bowel gas pattern. ACT 112: Negative or not required by law. Electronically signed by: Brandon Flowers M.D. 04/12/2023 8:02 PM Brain MRI 04/16/23 08:00 MRI OF THE BRAIN WITHOUT AND WITH IV CONTRAST CLINICAL HISTORY: new onset dysphagia, dyspnea, falls COMPARISON STUDY: MRI of the brain November 04, 2021. Head CT April 10, 2023. TECHNIQUE: Utilizing a 1.5 Sheba magnet and dedicated coil, multiplanar, multiecho imaging of the brain was performed pre and postcontrast administration. IV administration of 10.5 mL of Gadavist contrast was uneventful. FINDINGS: There there are no foci of restricted diffusion to suggest acute infarct. No acute intracranial hemorrhage, midline shift or mass effect is present. Basal cisterns are patent. There are no extra-axial collections. Flow- voids for the major intracranial vessels are present. There is no intracranial mass or pathologic enhancement. Ventricular dilatation is unchanged. This is likely due to central atrophy. Moderate atrophy is noted. A few small white matter T2 hyperintense foci are noted. The appearance of the brain is similar to MRI November 04, 2021. IMPRESSION: 1. No acute intracranial findings. 2. No intracranial mass or pathologic enhancement. 3. No change in appearance of the brain since MRI of 11/04/2021. ACT 112: Negative or not required by law. Electronically signed by: Leo Pastrana M.D. 04/16/2023 5:25 PM Videofluoroscopic Swallow 04/16/23 08:44 VIDEO SWALLOW STUDY CLINICAL HISTORY: Aspiration. COMPARISON STUDY: No priors. FLUOROSCOPY TIME: 1.32 minutes. Ka,r: 21.2 mGy. FINDINGS: Fluoroscopic guidance provided to department of speech pathology in performing a video swallow study. The patient consumed barium impregnated pudding, cracker with paste, thickened liquids, and thin barium while the swallowing mechanism was observed in real-time. No penetration or aspiration was seen with any of the sampled textures. Esophageal dysmotility is observed. IMPRESSION: No penetration or aspiration was seen. See dedicated speech pathology report for detailed findings and recommendations. Dictated: 04/16/2023 12:03 PM Transcribed: 04/16/2023 12:12 PM Makayla [id number] DEANN_Mark [id number] Electronically signed by: Jasson Vance M.D. 04/16/2023 12:21 PM 04/14/23 05:42 04/17/23 12:58 04/18/23 04/18/23 04/17/23 Range/Units Unknown 05:43 12:58 PT 17.9 H 21.3 H (9.0-12.0) Seconds INR 1.7 H 2.0 H (0.9-1.1) Sodium 134 L (136-145) mmol/L Potassium 4.3 (3.5-5.1) mmol/L Chloride 99 (98-107) mmol/L Carbon Dioxide 28 (21-32) mmol/L Anion Gap 7 (3-11) BUN 42 H (6-23) mg/dl Creatinine 1.47 H (0.6-1.4) mg/dl Est Cr Clr Drug Dosing 43.5 ml/min Est GFR ( Amer) 49.4 ml/min Est GFR (Non-Af Amer) 42.6 ml/min BUN/Creatinine Ratio 28.6 H (10-20) Glucose 133 H (70-99(Fasting)) mg/dl Calcium 9.1 (8.6-10.3) mg/dl SARS-CoV-2 (PCR) Pending Hospital Course (1) Dyspnea: Treated for community acquired pneumonia with ceftriaxone (completed) and doxycycline - last day 04/18. overall much improved with steroids, bronchodilators, and antibiotics, fever and dyspnea resolved pulmonary consulted this admission; started on Anoro by pulmonary - seems to be helping. At discharge will recommend f/u with Dr Brett Narayanan - [facility] [place] Pulmonary - with whom he has seen in the past. -complete five more days of prednisone and stopped cardiology consulted--> does not appear current symptoms are due to cardiac cause. Has chronic HFpEF but is euvolemic, continuing his usual meds. CT chest this admission with bronchial compression from large, bulky, calcified lymph nodes - chronic/seen on past CTs - suggestive of old granulomatous disease (in the past he was told he may have had fungal infection years ago) respiratory biofire negative I do suspect he had some form of infectious process of the lungs at time of admission (had fever early in the stay, etc) in the setting of the various chronic issues seen on CT chest Suspect some of his symptoms could be from the bronchial compression as well. of note - his problem list mentions restrictive lung disease as well as asthma there is reference to "interstitial nodular lung disease" as well cannot find an outpatient pulm note or PFTs to substantiate an asthmatic condition either way send back to [facility] [place] Pulmonary post-d/c as above (2) History of aortic valve replacement: [facility] valve - 1994 (2nd to bicuspid AV) chronic warfarin anticoagulation INR goal is 2.5 to 3.5 last echo 04/2021 - valve appearing to be functioning normally repeat echo this admission with normal AV function became supratherapeutic on warfarin during this stay (likely related to antibiotics), warfarin was held, resumed and given 4 mg on 04/17 for INR of 2.0 on 04/18 INR is down to 1.7 so started on enoxaparin 1 mg/kg sq q12h for bridging - recommend resuming warfarin at prior home dose and stopping enoxaparin when INR 2.5 or higher (3) Right knee pain: pt initially had acute left knee pain early in the admission s/p arthrocentesis of L knee but crystal analysis was negative and culture negative later also developed right knee pain and effusion despite the negative crystal analysis still possible he had b/l knee pseudogout flares, or a reactive arthritis related to URI/pneumonia alternatively this may have simply been from advanced OA either way ice, prednisone, etc will help his symptoms -knee effusions have resolved as of 04/18, ambulating, does have some intermittent knee pain which is most likely related to OA -PT/OT (4) Left knee pain: appreciate [facility] Ortho consultation s/p arthrocentesis L knee 40cc clear fluid WBCs from fluid not c/w septic joint gram stain negative and cx thus far negative crystal analysis surprisingly was negative culture was negative see above (5) Abdominal distension: checked KUB x-rays which were unremarkable, abdominal exam remained benign he also denies ANY GI symptoms - no nausea, emesis, pain, etc tolerating general diet and bowel regimen added, resolved (6) Fever: early in admission, resolved suspect pulmonary source given #1 above respiratory biofire negative L knee synovial fluid cx negative blood cx's negative urine cx negative (7) Deformity of right foot: previously worked up by neurology for such - both by out of town neurology ([facility]) as well as Dr David Real, [facility] [place] Neurology uncertain if 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 due to pain in knees leading to leg instability? brewing infectious process? neuropathy of legs? progressive neurological condition? combination? PT, OT evals appreciated neurology consultation appreciated MRI alison w/ contrast neg for acute findings needs rehab post-d/c (9) Ambulatory dysfunction: Ambulates with a walker at baseline, wheelchair for distances Has seen neurology for polyneuropathy, R foot deformity, etc (last office visit was 09/2022 per scanned records - [facility] Neurology) Locally has seen Dr Real see above Re: brace appreciate neuro consult while here MRI brain neg for acute findings (10) Idiopathic polyneuropathy: B12 level wnl neuropathy is chronic has had EMG studies in the past (11/2021 - showed mixed motor/sensory neuropathy of legs -- etiology uncertain) I can't see he has ever been trialed on lyrica or gabapentin will trial gabapentin 100 BID - possibly some improvement in pain, discussed trial of a few weeks with the patient and his , would keep dose very low given his CKD advanced age and gait instability, discussed potential side effects of sleepiness drowsiness especially (11) History of atrial fibrillation: Permanent dual AV pacemaker in place; 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 Stable; rate controlled anticoagulated on Coumadin Continue sotalol obtained pacemaker interrogation while here - per Dr Chaudhary, [facility], interrogation was wnl (12) (HFpEF) heart failure with preserved ejection fraction: follows with [facility] attempts at diuresis hospital day #1 - no significant change in his clinical status - and creatinine simply julio with diuretics echo this admission with preserved EF and normal AV and MV function diuretics have been resumed at home doses, appears euvolemic (13) Restless leg syndrome: Continue ropinirole (14) CKD (chronic kidney disease), stage III: baseline Cr of ~1.4 stable 1.47 on 04/17 (15) 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 (16) Dysphagia: speech therapy consult appreciated despite modification to diet staff & pt's cont to notice problems with swallowing speech therapy performed video swallow study-- NO ASPIRATION seen esophageal dysmotility identified speech recommended consideration of PPI for GERD - daily PPI was started (17) Esophageal dysmotility: as seen on video swallow study this admission GERD along with esophageal dysmotility is the likely cause of constant throat clearing start protonix 40mg daily and see how he does Total Time Total Time Spent Total Time Spent (In Minutes): 45 minutes spent coordinating care for discharge today Discharge Plan Discharge Items Patient Disposition: Transfer [facility] Reason For Visit: FALL, ACUTE PSUEDOGOUT OF KNEE, ACUTE CHRONIC CHF Discharge Diagnosis: Community acquired pneumonia, bilateral knee pain and swelling inflammatory arthritis (possibly gout or pseudogout), mechanical aortic valve on chronic anticoagulation Activity: Resume your previous activity Non-emergency contact: Primary Care Provider Follow-up/Referrals: Brett Narayanan MD [Physician] - (flag football coach) Clau Mederos MD [Primary Care Provider] - Diet: Regular Addtl Attending Provider Instructions: PT and OT evaluate and treat Outpatient follow up with prosthetics (saw in hospital) - office visit for custom right foot brace Bridging anticoagulation - INR goal 2.5-3.5 for mechanical aortic valve, currently subtherapeutic on warfarin and bridging with enoxaparin -check protime/INR daily until therapeutic then as needed to adjust warfarin -discontinue enoxaparin once INR 2.5-3.5 -resuming his home dosing: warfarin 4 mg on , 6 mg 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 Provider Instructions: PT and OT evaluate and treat Outpatient follow up with prosthetics (saw in hospital) - office visit for custom right foot brace Bridging anticoagulation - INR goal 2.5-3.5 for mechanical aortic valve, currently subtherapeutic on warfarin and bridging with enoxaparin -check protime/INR daily until therapeutic then as needed to adjust warfarin -discontinue enoxaparin once INR 2.5-3.5 -resuming his home dosing: warfarin 4 mg on [place] , 6 mg all other days Pending Studies at Discharge: No Stand-Alone Forms: My [facility] Skilled Items Patient informed of condition?: Yes DNR: Yes Discharge Level of Care: Skilled Communicable Disease: No Discharge Prognosis: Improving Lines: None Urinary Catheter: No Medications and DC Order Prescriptions: New doxycycline hyclate 100 mg Capsule 100 mg PO BID Qty: 1 0RF polyethylene glycol 3350 [Miralax] 17 gram Powder In Packet 17 g PO DAILY Qty: 0 0RF sennosides [Senokot] 8.6 mg Tablet 17.2 mg PO QAM Qty: 0 0RF prednisone 20 mg Tablet 20 mg PO DAILY Qty: 1 0RF acetaminophen 325 mg Tablet 650 mg PO Q4H PRNQty: 0 0RF melatonin 3 mg Tablet 3 mg PO HS PRNQty: 0 0RF Anoro Ellipta 62.5-25 mcg/actuation Blister With Device 1 inh inhalation DAILY Qty: 0 0RF ipratropium-albuterol 0.5 mg-3 mg(2.5 mg base)/3 mL Solution For Nebulization 3 ml NEB QIDR PRNQty: 0 0RF gabapentin 100 mg Capsule 100 mg PO BID Qty: 0 0RF pantoprazole 40 mg Tablet,Delayed Release (Dr/Ec) 40 mg PO QAM Qty: 0 0RF enoxaparin [Lovenox] 120 mg/0.8 mL Syringe 111 mg subcut Q12H Qty: 0 0RF Continued ropinirole 0.25 mg tablet 0.25 mg PO HS Qty: 90 0RF furosemide 40 mg tablet 20 mg PO QAM (DME) [place] [employer] Comf Protect XL Misc See Rx Instructions .Route Qty: 100 3RF Rx Instructions: As directed vitamin B complex [B Complex-Vitamin B12] Tablet 1 tab PO DAILY magnesium oxide 400 mg magnesium capsule 400 mg PO DAILY spironolactone 25 mg tablet 12.5 mg PO DAILY amoxicillin 500 mg capsule 2,000 mg PO PRN Rx Instructions: take 4 capsules by mouth 1 hour PRIOR TO DENTAL PROCEDURE atorvastatin 20 mg tablet 20 mg PO HS Qty: 90 3RF sotalol 80 mg Tablet 40 mg PO QAM folic acid 400 mcg Tablet 0.4 mg PO DAILY ascorbic acid (vitamin C) [Vitamin C] 500 mg Tablet 500 mg PO DAILY C,E,zinc,copper [id number] 250-5-1 mg Capsule 2 cap PO QAM diclofenac sodium [Voltaren Arthritis Pain] 1 % gel 4 g EXT QID PRN (Reason: Pain) warfarin 2 mg tablet See Rx Instructions .ROUTE .COMPLEX Qty: 0 0RF Rx Instructions: Per RN: Sun/Tues/Thurs patient takes 4mg. All other days patient takes 6mg. Pt is supposed to have INR tested on 04/09/23. Discontinued acetaminophen [Tylenol Extra Strength] 500 mg Tablet 1,000 mg PO BID PRN (Reason: Pain) Qty: 30 0RF Discharge Orders: Discharge Order (Routine); Ordered 04/18/23 Ordered By: Kathy Salcedo Admission Data Admit Date/Time: 04/10/23 20:03 Attending Provider: Kathy Salcedo Admit Provider: Sathya Holder Primary Care Provider: Clau Mederos Other Providers: Sathya Ruiz; Eugene Rodriguez; Giovanny Ford; Yaniv Real; Eugene Chaudhary Coding Diagnoses Dyspnea R06.00 History of aortic valve replacement Z95.2 Right knee pain M25.561 Left knee pain M25.562 Abdominal distension R14.0 Fever R50.9 Fever type: unspecified Deformity of right foot M21.961 Fall W19.XXXA Encounter type: initial encounter Ambulatory dysfunction R26.2 Idiopathic polyneuropathy G60.9 History of atrial fibrillation Z86.79 (HFpEF) heart failure with preserved ejection fraction I50.30 Restless leg syndrome G25.81 CKD (chronic kidney disease), stage III N18.30 Chronic kidney disease stage 3 subtype: unspecified whether 3a or 3b History of mitral valve replacement Z95.2 Dysphagia R13.10 Esophageal dysmotility K22.4
[2023-04-18] MEDS ORDERED: WARFARIN SOD 6 MG TAB PO SCH (16:00)
== END 2023-04-18 15:56 | DRG 553 ==
LOC: EDINP 10:16 → ED 10:16 → SUATTDRO 15:06 → 3N 15:33 → SUATTDRO 04-10 20:03 → 2W 04-10 23:25

== ENCOUNTER 2023-04-25 02:18 | Inpatient (IN) ==
[2023-04-25 02:51] LABS: Basophils # (auto) 0.05 K/uL (0.00-0.20); Basophils % (auto) 0.2 %; Eosinophils # (auto) 0.02 K/uL (0.00-0.50); Eosinophils % (auto) 0.1 %; Immature Granulocytes # (auto) 0.23 K/uL (0.01-0.20); Lymphocytes # (auto) 2.13 K/uL (1.20-3.40); Mean Corpuscular Hemoglobin 31.4 pg (25.0-34.0); Mean Corpuscular Hgb Conc 33.3 g/dL (32.0-36.0); Mean Corpuscular Volume 94.1 fL (80.0-100.0); Mean Platelet Volume 10.7 fL (9.4-12.4); Monocytes # (auto) 2.99 K/uL (0.11-0.59); Monocytes % (auto) 12.6 %; Neutrophils # (auto) 18.32 K/uL (1.40-6.50); Neutrophils % (auto) 77.1 %; Platelet Count 274 K/uL (130-400); RDW Coefficient of Variation 14.2 % (11.5-14.5); RDW Standard Deviation 48.1 fL (36.4-46.3); Red Blood Count 2.87 M/uL (4.70-6.10); White Blood Count 23.74 K/ul (4.8-10.8)
[2023-04-25 03:38] LABS: INR 2.8 (0.9-1.1); Partial Thromboplastin Ratio 1.7; Partial Thromboplastin Time 49 Seconds (21-31); Prothrombin Time 28.8 Seconds (9.0-12.0)
[2023-04-25 03:54] LABS: Alanine Aminotransferase 59 U/L (7-52); Albumin Globulin Ratio 0.9 (0.9-2); Albumin Level 3.2 gm/dl (3.4-5.0); Alkaline Phosphatase 46 U/L (34-104); Anion Gap 5 (3-11); Bilirubin,Total 0.6 mg/dl (0.2-1.0); Blood Urea Nitrogen 38 mg/dl (6-23); Calcium 8.6 mg/dl (8.6-10.3); Carbon Dioxide 30 mmol/L (21-32); Chloride 98 mmol/L (98-107); Creatinine Clr Calc Pharmacy 39.6 ml/min; Est GFR (African American) 42.9 ml/min; Globulin 3.5 gm/dl (2.5-4.0); Glucose 108 mg/dl (70-99(Fasting)); Sodium 133 mmol/L (136-145); Total Protein 6.7 gm/dl (6.0-8.3)
[2023-04-25 04:02] LABS: Appearance Urine Clear (Clear); Bacteria Urine Automated Negative (Negative); Bilirubin Urine Negative (Negative); Blood Urine Negative (Negative); Color Urine Dark Yellow; Glucose Urine UA Negative (Negative); Ketones Urine Trace (Negative); Leukocyte Esterase Urine Negative (Negative); Nitrite Urine Negative (Negative); Protein Urine 1+ (Negative); RBC Urine Automated 0-4 /hpf (0-4); Specific Gravity Urine 1.032 (1.000-1.030); Urobilinogen Urine Negative (Negative)
[2023-04-25 04:16] LABS: Troponin I High Sensitivity 68.3 pg/ml (0-20)
[2023-04-25 04:35] LABS: Bilirubin Direct 0.1 mg/dl (0-0.2); Potassium 4.7 mmol/L (3.5-5.1)
[2023-04-25] MEDS ORDERED: ACETAMINOPHEN 500 MG TAB PO STA (04:38)
[2023-04-25 04:45] LABS: Adenovirus PCR Not Detected (NotDetected); Bordetella parapertussis PCR Not Detected (NotDetected); Bordetella pertussis PCR Not Detected (NotDetected); Chlamydia pneumoniae PCR Not Detected (NotDetected); Coronavirus 229E PCR Not Detected (NotDetected); Coronavirus CoV-2 (COVID19)PCR Not Detected (NotDetected); Coronavirus HKU1 PCR Not Detected (NotDetected); Coronavirus NL63 PCR Not Detected (NotDetected); Coronavirus OC43PCR Not Detected (NotDetected); Human Metapneumovirus PCR Not Detected (NotDetected); Influenza A PCR Not Detected (NotDetected); Influenza B PCR Not Detected (NotDetected); Mycoplasma pneumoniae PCR Not Detected (NotDetected); Parainfluenza Virus 1 PCR Not Detected (NotDetected); Parainfluenza Virus 2 PCR Not Detected (NotDetected); Parainfluenza Virus 3 PCR Not Detected (NotDetected); Parainfluenza Virus 4 PCR Not Detected (NotDetected); Respiratory Syncytial VirusPCR Not Detected (NotDetected); Rhinovirus/Enterovirus PCR Not Detected (NotDetected)
[2023-04-25 05:00] LABS: Troponin I High Sensitivity 71.9 pg/ml (0-20)
--- NOTE | 2023-04-25 05:02 | Ultrasound Report ---
Exam(s): US VENOUS LEFT LOWER EXTREMITY EXAM: US Duplex Left Lower Extremity Veins CLINICAL HISTORY: Concern for deep vein thrombosis. TECHNIQUE: Real-time duplex ultrasound scan of the left lower extremity veins integrating B-mode two-dimensional vascular structure, Doppler spectral analysis, color flow Doppler imaging and compression. COMPARISON: No relevant prior studies available. FINDINGS: Deep veins: Unremarkable. No DVT in the visualized common femoral, femoral, proximal deep femoral or popliteal veins. The veins demonstrate normal color flow, are normally compressible, with normal phasic flow and/or augmentation response. Superficial veins: Unremarkable. No thrombus in the visualized great saphenous vein. Soft tissues: There is a 12.5 x 11.1 x 20.4 cm heterogeneous fluid collection of the left groin. There is a concern for hematoma, and is likely intramuscular. No evidence of pseudoaneurysm. No popliteal cyst. IMPRESSION: 1. No deep vein thrombosis of the left lower extremity. 2. There is a 12.5 x 11.1 x 20.4 cm heterogeneous fluid collection of the left groin. There is a concern for hematoma, and is likely intramuscular. No evidence of pseudoaneurysm. Electronically signed by: Andreea Mccrary MD 04/25/23 05:01 AM
[2023-04-25] MEDS ORDERED: SODIUM CHLORIDE 0.9% 500 ML IV ONE (06:04)
[2023-04-25] MEDS ORDERED: cefTRIAXone SODIUM 2,000 MG in DEXTROSE 5 % MINI-B 50 ML IV STA (06:04)
--- NOTE | 2023-04-25 06:08 | History & Physical Report ---
Date of Service April 25, 2023 Assessment & Plan (1) Hematoma of left inguinal region: (2) Coronary artery disease: (3) Atrial flutter: (4) Ambulatory dysfunction: (5) (HFpEF) heart failure with preserved ejection fraction: (6) History of atrial fibrillation: (7) History of aortic valve replacement: (8) History of mitral valve replacement: (9) CKD (chronic kidney disease), stage III: (10) Chronic anticoagulation: Plan Hematoma of left inguinal region/chronic anticoagulation/status post fall/symptomatic anemia- Ultrasound report of 12.5 x 11.1 x 20.4 cm left groin fluid collection Patient reports a fall about 1 week ago, with worsening left groin pain and swelling and left lower extremity swelling Hemoglobin 9.0, with baseline 1 week ago 12.1 Order type and screen Venous Doppler negative for DVT, suggesting obstruction of venous return of left lower extremity due to left groin hematoma Will hold on doing CT scan with contrast to assess for active bleed, until patient gets fluid bolus to try to improve acute kidney injury Consult to vascular surgery if indicated H&H every 6 hours x 4 Hold warfarin CBC with differential, chemistry profile, PT/PT/INR every morning Atrial fibrillation/bovine MVR/metallic AVR/elevated troponin/HFpEF- The patient will be admitted to telemetry for serial cardiac enzymes, serial EKG's, cardiac rhythm monitoring Most recent echo on 04/12/2023 with ejection fraction 55-60% Troponin initially 68.3 with follow-up 71.9, likely supply demand type II Hold warfarin due to groin hematoma as noted above Hold furosemide, mag oxide, spironolactone and warfarin Continue sotalol COPD- Hospitalized from 04/09-04/18/2023 for COPD exacerbation Anoro Ellipta added at that time, continue Continue albuterol nebulizer 4 times daily as needed History of Present Illness Chief Complaint: The patient presents to the emergency department with left groin pain and left lower extremity swelling worsening over the past week after a fall about 1 week ago, where his walker got caught on the commode and he fell over. He denies any head trauma or any other discomfort of the left groin pain and left lower extremity swelling Primary Care Provider: Clau Mederos MD The patient is an 87-year-old male with a past medical history including esophageal dysmotility, granulomatous lung disease, CAD, atrial flutter, atrial fibrillation, mechanical AVR, bovine MVR, CKD stage III, RLS, idiopathic polyneuropathy, ambulatory dysfunction, HFpEF, right knee pseudogout, restrictive lung disease, hypercholesterolemia and chronic obstructive asthma. Patient presents to the emergency department with complaint of worsening left groin pain and swelling and left lower extremity swelling after a ground-level fall with his walker about 1 week ago Allergies Allergy/AdvReac Type Severity Reaction Status Date / Time Penicillins Allergy Intermediate RASH Verified 01/10/23 11:38 Home Medications Medication Instructions Recorded Confirmed Type furosemide 40 mg tablet 20 mg PO QAM 03/04/19 04/09/23 History sotalol 80 mg tablet 40 mg PO QAM 11/12/19 04/09/23 History diclofenac sodium 1 % topical gel 4 g EXT QID PRN Pain 11/03/21 04/09/23 History (Voltaren Arthritis Pain) vit C,E,zinc,copper-[id number] 250 2 cap PO QAM 11/03/21 04/09/23 History mg-lutein 5 mg-zeaxanthin 1 mg capsule warfarin 2 mg tablet See Rx Instructions .Route 11/11/21 04/09/23 Rx .COMPLEX #0 tabs diaper,brief,adult,disposable #100 ea 02/02/22 01/01/23 Rx ([place] Choice Comfort Protect Adult Diaper X-Large) amoxicillin 500 mg capsule 2,000 mg PO PRN 01/01/23 04/09/23 History atorvastatin 20 mg tablet 20 mg PO HS #90 tabs 01/01/23 04/09/23 Rx magnesium oxide 400 mg PO DAILY 01/01/23 04/09/23 History spironolactone 25 mg tablet 12.5 mg PO DAILY 01/01/23 04/09/23 History vitamin B complex (B 1 tab PO DAILY 01/01/23 04/09/23 History Complex-Vitamin B12 tablet) ropinirole 0.25 mg tablet 0.25 mg PO HS #90 tabs 01/08/23 04/09/23 Rx ascorbic acid (vitamin C) 500 mg 500 mg PO DAILY 04/09/23 04/09/23 History tablet (Vitamin C) folic acid 400 mcg tablet 0.4 mg PO DAILY 04/09/23 04/09/23 History acetaminophen 325 mg tablet 650 mg (2 x 325 mg) PO Q4H PRN #0 04/18/23 Rx tabs enoxaparin 120 mg/0.8 mL 111 mg (0.74 mL) subcut Q12H #0 mL 04/18/23 Rx subcutaneous syringe (Lovenox) gabapentin 100 mg capsule 100 mg PO BID #0 caps 04/18/23 Rx ipratropium 0.5 mg-albuterol 3 mg 3 ml NEB QIDR PRN #0 mL 04/18/23 Rx (2.5 mg base)/3 mL nebulization soln melatonin 3 mg tablet 3 mg PO HS PRN #0 tabs 04/18/23 Rx pantoprazole 40 mg tablet,delayed 40 mg PO QAM #0 tabs 04/18/23 Rx release polyethylene glycol 3350 17 gram 17 g PO DAILY #0 ea 04/18/23 Rx oral powder packet (Miralax) sennosides 8.6 mg tablet (Senokot) 17.2 mg (2 x 8.6 mg) PO QAM #0 tabs 04/18/23 Rx umeclidinium 62.5 mcg-vilanterol 1 inh inhalation DAILY #0 ea 04/18/23 Rx 25 mcg/actuation powdr for inhalation (Anoro Ellipta) Past Med/Surg History Medical History (Updated 04/25/23 @ 06:19 by Nazario Diaz MD) Chronic anticoagulation CKD (chronic kidney disease), stage III Macular degeneration GETS SHOTS IN EYES FOR TREATMENT Q8-10 WEEKS Restless leg syndrome History of cardioversion History of atrial fibrillation Hypertension Aortic valve disorder Atrial flutter BPH with obstruction/lower urinary tract symptoms Coronary artery disease Nonobstructive on [facility] 2012 Ventral hernia Moderate obstructive sleep apnea Pseudogout Surgical History History of left cataract surgery 11/19/2019. propofol given. History of colonoscopy History of tooth extraction History of inguinal hernia repair LEFT X 2 History of vasectomy History of mitral valve replacement 4 YEARS AGO (DENICE TAYLOR) History of aortic valve replacement AT AGE 58 (DENICE GRAY) Family History Sister Heart disease Denies family history of Ovarian cancer Prostate cancer Myocardial infarction Breast cancer Colorectal cancer Social History Smoking Status: Unknown if ever smoked Second Hand Exposure: No; Do You Dip or Chew Tobacco: No; Hx Alcohol Use: Yes Alcohol type: wine Alcohol Intake Frequency: 2-3 x/Week Alcohol Intake Frequency Comment: 2 glasses of wine per week Hx Substance Use: No Preferred Language: Croatian Communication Ability: Effective Visual Impairment: Diminished Hearing Ability: Normal Ripening Room Operator Required: No Beliefs That Will Affect Care: None marital status: Current Living Situation: Spouse current occupational status: retired 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 Feels Safe at Home: Yes Childhood Exposure to Second-Hand Smoke: Yes Diet: regular Dental Care, Regularly: Yes Physical Activity Frequency: Daily Seatbelt Use: always Sunscreen Use: Yes (sometimes ) Assistive Devices: Walker Review of Systems Review of Systems: The patient denies chest pain, palpitations, shortness of breath, dyspnea on exertion, cough, sore throat, fevers, chills, sweats, nausea, vomiting, diarrhea , constipation, abdominal pain, blood in urine or stool, dysuria, urinary frequency or urgency, lightheadedness, dizziness, headache, memory loss, loss of consciousness, focal or generalized weakness, numbness or tingling in arms, generalized arthralgias or myalgias, back or neck pain, or night sweats. The review of systems is otherwise negative other than for that already noted above, and at least 10 systems have been reviewed. Physical Exam Physical Exam: The patient is awake, alert and oriented 3, well developed and well nourished, normocephalic and atraumatic, lying in bed and in no acute distress. HEENT--PERRL, EOMI, mucous membranes and oropharynx mildly dry. Neck--supple. No JVD. No bruits. Thyroid normal, trachea midline, no adenopathy. Heart--normal S1 and S2. No murmurs, rubs or gallops. Lungs--clear bilaterally, no respiratory distress, no accessory muscle use. Abdomen--normal bowel sounds and soft. Nontender. Nondistended Pelvis-palpable protrusion left groin area Extremities--right lower extremity negative. Left lower extremity 3-4+ pitting edema. Dermatologic--normal skin turgor, normal color, no abnormal lymph nodes, Neurologic--cranial nerves II through XII grossly intact. Rheumatologic--limited exam due to left groin and left lower extremity swelling Psychiatric--normal affect. Results & Data Results & Data Vital Signs (Past 12 Hours) Vital Signs Temp Pulse Pulse Resp BP BP Pulse Ox 04/25/23 04:35 36.8 C 69 18 143/68 H 98 04/25/23 03:27 97 04/25/23 02:44 73 04/25/23 02:29 36.5 C 72 16 121/82 94 04/25/23 02:29 36.5 C 74 16 121/62 97 O2 Del Method 04/25/23 04:35 Room Air 04/25/23 03:27 Room Air 04/25/23 02:44 04/25/23 02:29 Room Air 04/25/23 02:29 Room Air Laboratory Results Laboratory Results WBC 23.74 K/ul (4.8-10.8) H 04/25/23 02:34 RBC 2.87 M/uL (4.70-6.10) L 04/25/23 02:34 Hgb 9.0 g/dl (14.0-18.0) L 04/25/23 02:34 Hct 27.0 % (42.0-52.0) L 04/25/23 02:34 MCV 94.1 fL (80.0-100.0) 04/25/23 02:34 MCH 31.4 pg (25.0-34.0) 04/25/23 02:34 MCHC 33.3 g/dL (32.0-36.0) 04/25/23 02:34 RDW Std Deviation 48.1 fL (36.4-46.3) H 04/25/23 02:34 RDW Coeff of Cresencio 14.2 % (11.5-14.5) 04/25/23 02:34 Plt Count 274 K/uL (130-400) 04/25/23 02:34 MPV 10.7 fL (9.4-12.4) 04/25/23 02:34 Immature Gran % (Auto) 1.0 % 04/25/23 02:34 Neut % (Auto) 77.1 % 04/25/23 02:34 Lymph % (Auto) 9.0 % 04/25/23 02:34 [place] % (Auto) 12.6 % 04/25/23 02:34 Eos % (Auto) 0.1 % 04/25/23 02:34 Baso % (Auto) 0.2 % 04/25/23 02:34 Neut # (Auto) 18.32 K/uL (1.40-6.50) H 04/25/23 02:34 Lymph # (Auto) 2.13 K/uL (1.20-3.40) 04/25/23 02:34 [place] # (Auto) 2.99 K/uL (0.11-0.59) H 04/25/23 02:34 Eos # (Auto) 0.02 K/uL (0.00-0.50) 04/25/23 02:34 Baso # (Auto) 0.05 K/uL (0.00-0.20) 04/25/23 02:34 Immature Gran # (Auto) 0.23 K/uL (0.01-0.20) H 04/25/23 02:34 PT 28.8 Seconds (9.0-12.0) H 04/25/23 02:34 INR 2.8 (0.9-1.1) H 04/25/23 02:34 APTT 49 Seconds (21-31) H 04/25/23 02:34 PTT Ratio 1.7 04/25/23 02:34 Sodium 133 mmol/L (136-145) L 04/25/23 02:34 Potassium 4.7 mmol/L (3.5-5.1) 04/25/23 03:48 Chloride 98 mmol/L (98-107) 04/25/23 02:34 Carbon Dioxide 30 mmol/L (21-32) 04/25/23 02:34 Anion Gap 5 (3-11) 04/25/23 02:34 BUN 38 mg/dl (6-23) H 04/25/23 02:34 Creatinine 1.65 mg/dl (0.6-1.4) H 04/25/23 02:34 Est Cr Clr Drug Dosing 39.6 ml/min 04/25/23 02:34 Est GFR ( Amer) 42.9 ml/min 04/25/23 02:34 Est GFR (Non-Af Amer) 37.0 ml/min 04/25/23 02:34 BUN/Creatinine Ratio 23.0 (10-20) H 04/25/23 02:34 Glucose 108 mg/dl (70-99(Fasting)) H 04/25/23 02:34 Lactate 1.2 mmol/L (0.4-2.0) 04/25/23 03:47 Calcium 8.6 mg/dl (8.6-10.3) 04/25/23 02:34 Magnesium 2.0 mg/dl (1.7-2.4) 04/25/23 02:34 Total Bilirubin 0.6 mg/dl (0.2-1.0) 04/25/23 02:34 Direct Bilirubin 0.1 mg/dl (0-0.2) 04/25/23 03:48 AST 44 U/L (13-39) H 04/25/23 03:48 ALT 59 U/L (7-52) H 04/25/23 02:34 Alkaline Phosphatase 46 U/L (34-104) 04/25/23 02:34 Troponin I High Sens 71.9 pg/ml (0-20) H* 04/25/23 03:48 Total Protein 6.7 gm/dl (6.0-8.3) 04/25/23 02:34 Albumin 3.2 gm/dl (3.4-5.0) L 04/25/23 02:34 Globulin 3.5 gm/dl (2.5-4.0) 04/25/23 02:34 Albumin/Globulin Ratio 0.9 (0.9-2) 04/25/23 02:34 Procalcitonin 0.08 ng/ml (0-0.5) 04/25/23 02:37 Urine Color Dark Yellow 04/25/23 03:42 Urine Appearance Clear (Clear) 04/25/23 03:42 Urine pH 5.0 (4.5-7.5) 04/25/23 03:42 Ur Specific [place] 1.032 (1.000-1.030) H 04/25/23 03:42 Urine Protein 1+ (Negative) H 04/25/23 03:42 Urine Glucose (UA) Negative (Negative) 04/25/23 03:42 Urine Ketones Trace (Negative) H 04/25/23 03:42 Urine Blood Negative (Negative) 04/25/23 03:42 Urine Nitrite Negative (Negative) 04/25/23 03:42 Urine Bilirubin Negative (Negative) 04/25/23 03:42 Urine Urobilinogen Negative (Negative) 04/25/23 03:42 Ur Leukocyte Esterase Negative (Negative) 04/25/23 03:42 Urine WBC (Auto) 1-5 /hpf (0-5) 04/25/23 03:42 Urine RBC (Auto) 0-4 /hpf (0-4) 04/25/23 03:42 U Hyaline Cast (Auto) 1-5 /lpf (0-5) 04/25/23 03:42 U Epithel Cells (Auto) 10-20 /lpf (0-5) H 04/25/23 03:42 Urine Bacteria (Auto) Negative (Negative) 04/25/23 03:42 Adenovirus (PCR) Not Detected (NotDetected) 04/25/23 03:42 B. pertussis DNA (PCR) Not Detected (NotDetected) 04/25/23 03:42 B.parapertussis DNA PCR Not Detected (NotDetected) 04/25/23 03:42 C. pneumoniae DNA (PCR) Not Detected (NotDetected) 04/25/23 03:42 Coronavirus OC43 (PCR) Not Detected (NotDetected) 04/25/23 03:42 Coronavirus HKU1 (PCR) Not Detected (NotDetected) 04/25/23 03:42 Coronavirus 229E (PCR) Not Detected (NotDetected) 04/25/23 03:42 SARS-CoV-2 (PCR) Not Detected (NotDetected) 04/25/23 03:42 Coronavirus NL63 (PCR) Not Detected (NotDetected) 04/25/23 03:42 Human Metapneumovir PCR Not Detected (NotDetected) 04/25/23 03:42 Influenza Type A (PCR) Not Detected (NotDetected) 04/25/23 03:42 Influenza Type B (PCR) Not Detected (NotDetected) 04/25/23 03:42 M. pneumoniae (PCR) Not Detected (NotDetected) 04/25/23 03:42 Parainfluenza 1 (PCR) Not Detected (NotDetected) 04/25/23 03:42 Parainfluenza 2 (PCR) Not Detected (NotDetected) 04/25/23 03:42 Parainfluenza 3 (PCR) Not Detected (NotDetected) 04/25/23 03:42 Parainfluenza 4 (PCR) Not Detected (NotDetected) 04/25/23 03:42 RSV (PCR) Not Detected (NotDetected) 04/25/23 03:42 Entero/Rhino (PCR) Not Detected (NotDetected) 04/25/23 03:42 Impressions Venous Doppler Study 04/25/23 03:35 Exam(s): US VENOUS LEFT LOWER EXTREMITY EXAM: US Duplex Left Lower Extremity Veins CLINICAL HISTORY: Concern for deep vein thrombosis. TECHNIQUE: Real-time duplex ultrasound scan of the left lower extremity veins integrating B-mode two-dimensional vascular structure, Doppler spectral analysis, color flow Doppler imaging and compression. COMPARISON: No relevant prior studies available. FINDINGS: Deep veins: Unremarkable. No DVT in the visualized common femoral, femoral, proximal deep femoral or popliteal veins. The veins demonstrate normal color flow, are normally compressible, with normal phasic flow and/or augmentation response. Superficial veins: Unremarkable. No thrombus in the visualized great saphenous vein. Soft tissues: There is a 12.5 x 11.1 x 20.4 cm heterogeneous fluid collection of the left groin. There is a concern for hematoma, and is likely intramuscular. No evidence of pseudoaneurysm. No popliteal cyst. IMPRESSION: 1. No deep vein thrombosis of the left lower extremity. 2. There is a 12.5 x 11.1 x 20.4 cm heterogeneous fluid collection of the left groin. There is a concern for hematoma, and is likely intramuscular. No evidence of pseudoaneurysm. Electronically signed by: Andreea Mccrary MD 04/25/23 05:01 AM Code Status & VTE Plan Code Status Full code VTE Prophylaxis Plan VTE Prophylaxis will be ordered: Yes PG Care Time/CCT Total # of Minutes Spent Total Time Spent with Patient: Total time spent is greater than 50% in coordination of care (as documented) at patient's floor/unit and/or counseling patient: Coding Level of Care Code 28636 INT INP/OBS CARE 3/75MIN Diagnoses Hematoma of left inguinal region S30.1XXA Coronary artery disease I25.10 Atrial flutter I48.92 Ambulatory dysfunction R26.2 (HFpEF) heart failure with preserved ejection fraction I50.30 History of atrial fibrillation Z86.79 History of aortic valve replacement Z95.2 History of mitral valve replacement Z95.2 CKD (chronic kidney disease), stage III N18.30 Chronic kidney disease stage 3 subtype: unspecified whether 3a or 3b Chronic anticoagulation Z79.01 (9) CKD (chronic kidney disease), stage III Chronic kidney disease stage 3 subtype: unspecified whether 3a or 3b Qualified Code(s): N18.30 - Chronic kidney disease, stage 3 unspecified
--- NOTE | 2023-04-25 08:07 | XRay Report ---
XR chest 1V portable CLINICAL HISTORY: Sepsis TECHNIQUE: Single frontal radiograph of the chest was obtained. Comparison: Comparison is made to chest radiograph 04/12/2023 FINDINGS: Median sternotomy wires are unchanged. Cardiomegaly is noted. Interval improvement in previously note d bibasilar opacities. No evidence of pleural effusion or pneumothorax. IMPRESSION: Interval improvement in previously noted bibasilar opacities. ACT 112: Negative or not required by law. Electronically signed by: Brandon Flowers M.D. 04/25/2023 8:05 AM
[2023-04-25] MEDS ORDERED: ONDANSETRON INJ 2 MG/ML 2 ML VIAL IV PRN (08:08)
[2023-04-25] MEDS: ACETAMINOPHEN 325 MG TAB PO PRN ×2 (08:27→13:05)
--- NOTE | 2023-04-25 08:44 | Hospitalist Progress Note ---
Date of Service April 25, 2023 Assessment & Plan (1) Hematoma of left inguinal region: Plan (1) Hematoma of left inguinal region: (2) Coronary artery disease: (3) Atrial flutter: (4) Ambulatory dysfunction: (5) (HFpEF) heart failure with preserved ejection fraction: (6) History of atrial fibrillation: (7) History of aortic valve replacement: (8) History of mitral valve replacement: (9) CKD (chronic kidney disease), stage III: (10) Chronic anticoagulation: Plan Hematoma of left inguinal region/chronic anticoagulation/status post fall/symptomatic anemia- Ultrasound report of 12.5 x 11.1 x 20.4 cm left groin fluid collection Patient reports a fall about 1 week ago, with worsening left groin pain and swelling and left lower extremity swelling Hemoglobin 9.0, with baseline 1 week ago 12.1 Order type and screen Venous Doppler negative for DVT, suggesting obstruction of venous return of left lower extremity due to left groin hematoma Will hold CT scan w/ con to assess for active bleed, until patient gets fluid bolus to try to improve PAOLO (Cr 1.65: bCr 1.25 - 1.4) Consult to vascular surgery if indicated Hgb 7.6 <- 7.8 <- 8.0 <- 9.0 H&H every 4 hours x 4 - CBC w/ diff, chemistry profile, PT/PT/INR every morning Hold warfarin Atrial fibrillation/bovine MVR/metallic AVR/elevated troponin/HFpEF- The patient will be admitted to telemetry for serial cardiac enzymes, serial EKG's, cardiac rhythm monitoring Most recent echo on 04/12/2023 with ejection fraction 55-60% Troponin initially 68.3 with follow-up 71.9, likely supply demand type II Hold warfarin due to groin hematoma as noted above Hold furosemide, Mg-oxide, spironolactone and warfarin Continue sotalol COPD Hospitalized from 04/09-04/18/2023 for COPD exacerbation Anoro Ellipta added at that time, continue Continue albuterol nebulizer 4 times daily as needed Admission and Anticipated Discharge Date Admission Date: April 25, 2023 Supervising Physician Co-Signing Physician Notes I personally examined the patient and verified all talavera points of history and exam, discussed case, and agree with decision making with Dr Kearney Feeling a little bit lightheaded but not constantly, not very severely. Otherwise no acute complaints other than left thigh swelling. Extensive discussion with patient and about current situation and options. Vitals noted, in general he is awake and alert pleasant no distress. Both times have seen him so far today his left thigh is swollen and ecchymotic as well as somewhat firmbut the overall area involved is essentially identical, on reexamination several hours after initial may be its slightly more firm in his medial proximal thigh but certainly nothing strikingly different. Labs and diagnostics noted. Left thigh a spontaneous hematoma with acute blood loss anemiain the context of chronic anticoagulation for a mitral valve replacement, in discussion with the , he apparently had been subtherapeutic and was on a Lovenox bridge until Sunday. He did have a fall, but she notes this was weeks ago not right before his thigh started swelling. In discussions with interventional teams, it seems unlikely that any intervention would be able to be of benefit, both because it seems to be more compatible with large volume venous bleed rather than arterial,, and also because in general interventional techniques to stop such bleeding is often not overtly successful. Further, without localization by CT angiogram to confirm vessel/active extravasation, it would really be unclear if they would even have an outside chance of giving him a benefitand in review of his chart, as well as and discussed with patient, his CKD hovers with a creatinine high enough (particularly with his volume status being low right now), that I would worry about causing some degree or even a serious degree of contrast nephropathywith the risk of that also being extremely unlikely to provide him with a benefit of setting up an intervention to stop the bleeding. We also discussed the potential need to briefly reverse his anticoagulation to allow the bleeding to stop, and then once things appeared to be stable, consider initial resumption of anticoagulation with a heparin drip to allow for quick reversibility. He notes he has had as his anticoagulation interrupted a few times before for necessary procedures, is well aware of that risk/benefit, and he and his agree that that would be reasonable course to take if he continues to bleed. Fortunately on follow-up his drop in hemoglobin seems to be slowing and he continues to appear overall completely hemodynamically stable and his exam is overall stable. Leukocytosis likely demargination, no overt signs or symptoms of infection, continue to follow both his white count and his overall clinical picture. Subjective Chief Complaint: left groin pain and left lower extremity swelling worsening over the past week after a fall ~ 2-3 weeks ago, where his walker got caught on commode and he fell over. Denied head trauma or other discomfort. Primary Care Provider: Clau Mederos MD The patient is an 87 yo M w/ a PMHx of esophageal dysmotility, granulomatous lung disease, CAD, Aflutter, AFib, mechanical AVR, bovine MVR, CKD stage III, RLS, idiopathic polyneuropathy, ambulatory dysfunction, HFpEF, right knee pseudogout, restrictive lung disease, hypercholesterolemia and chronic obstructive asthma. Patient presents to the emergency department with complaint of worsening left groin pain and swelling and LLE swelling after a ground-level fall with his walker about 1 week ago. Review of Systems Constitutional: + body aches (only l. leg) and + fatigue ; no fever and no chills Respiratory: no cough, no dyspnea and no pain on inspiration Cardiovascular: no chest pain and no palpitations Gastrointestinal: + constipation; no abdominal pain, no na usea, no vomiting and no diarrhea/loose stools Genitourinary: no dysuria, no urinary frequency (baseline freq from diuretic) or no hematuria Neurologic: + tingling and + numbness Hematologic / Lymphatic: no easy bleeding Physical Exam Constitutional: WD/WN, vitals as above Respiratory: normal respiratory effort, lungs clear to auscultation Cardiovascular: RRR, no murmur, no edema Gastrointestinal (Abdomen): normal bowel sounds, soft, nontender, no hepatosplenomegaly Results & Data Results & Data Vital Signs (Past 12 Hours) Vital Signs Temp Pulse Pulse Resp BP BP Pulse Ox 04/25/23 06:59 77 04/25/23 06:38 73 20 126/77 97 04/25/23 04:35 36.8 C 69 18 143/68 H 98 04/25/23 03:27 97 04/25/23 02:44 73 04/25/23 02:29 36.5 C 72 16 121/82 94 04/25/23 02:29 36.5 C 74 16 121/62 97 O2 Del Method 04/25/23 06:59 04/25/23 06:38 Room Air 04/25/23 04:35 Room Air 04/25/23 03:27 Room Air 04/25/23 02:44 04/25/23 02:29 Room Air 04/25/23 02:29 Room Air Resident Activity Tracking Resident Involvement: Resident Care Provided Care Provided: Adult Hospital Medicine
--- OUTSIDE RECORDS SUMMARY | 2023-04-25 08:54 | External Medical Summary | Summary of Care ---
Author Name Unknown Organization [facility] Address [address] Care Team Providers Care Irrigation Worker Name Role Phone Clau Mederos MD Primary Care Provide r Reason for Visit * Reason Onset Date Comments FYI 04/24/2023 Encounter Details Date Type Department Care Team (Late st Contact Info) Description 04/24/2023 Telephone Pharmacy, [facility] [address] [facility] [place] [address] Pharmacist1, [facility] [address] [place] [address] FYI (/) Allergies Active Allergy Reactions Criticality Noted Date Comments Penicillins 09/15/2010 documented as of this encounter (statuses as of 04/24/2023) Medications Medication Sig Dispensed Refills Start Date [...] as of this encounter (statuses as of 04/24/2023) Active Problems Problem Noted Date Diagnosed Date [...] as of this encounter (statuses as of 04/24/2023) Resolved Problems Problem Noted Date Diagnosed Date Resolved Date Chronic atrial flutter 03/07/201301/23 documented as of this encounter (statuses as of 04/24/2023) Immunizations Name Administration Dates Next Due Pneumococcal [...] encounter Miscellaneous Notes * Telephone Encounter - Dianne Sheth, insurance sales agent - 04/24/2023 9:23 AM EST Caller's name: Amee [facility] call back number(OFFICE NUMBER FOR ): [phone] Reason for call: calling to let Azeb know patient is currently admitted to [facility] [phone] for rehab, should be there for eleven days, states his INR is low and patient has been given Lovenox, she states she will notify us when patient will be discharged to home. Dianne Sheth MA Education Liaison I [facility] ([facility] [address] [facility] [address] [place] [address] ext [phone] documented in this encounter Plan of Treatment Upcoming Encounters Date Type Department Care Team (Late st Contact Info) Description 05/02/2023 5:10 PM EST Pharmacy Pharmacy, [facility] [address] [facility] [place] [address] Pharmacist1, [facility] [address] [facility] [place] [id number] 07/04/2023 2:00 PM EST Office Visit Cardiology, [facility] [address] [place] [address] Anatoliy Mckinney PA-C [address] [place] [id number] Scheduled Procedures Name Priority Associated Diagnoses Date/Ti me BRONCHOSCOPY DIAGNOSTIC WITH OR WITHOUT WASHING Recall Lung disorder Health Maintenance Due Date Last Done Comments Depression Screening 1947 Albumin/Creatinine Ratio 1953 DTaP,Tdap,and Td Vaccines (1 - Tdap) 08/23/1955 Zoster Vaccines (1 of 2) 1986 Pneumococcal Vaccine: 65+ Years (2 - PCV) 03/08/2014 03/08/2013 COVID-19 Vaccine ( season) 2023 02/02/2022, 09/30/2021, 03/29/2021, Additional history [...] this encounter Medical Devices Implanted Type Area Airport Utility Worker Device Identifier Shelf Expiration Date Model / Serial / Lot Valve Ce Mitral 25mm 6625 - [id number] Implanted:Qty : 1 on 03/14/2013 [place] [facility] [place] - Non Human N/A: Heart Ziebel ABRAHAM 07/17/2016 [id number] / [id number] / documented as of this encounter Visit [...] the patient have Health Care Power of Anvil Worker? Yes, not currently available Care Teams Irrigation Worker Relationship Specialty Start Date End Date Clau Mederos MD [address] [place] [address] PCP - General Internal Medicine 01/08/23 documented as of this encounter
[2023-04-25 09:59] LABS: Hematocrit (blood only) 23.1 % (42.0-52.0)
[2023-04-25 10:22] LABS: BUN Creatinine Ratio 24.5 (10-20); Calcium 8.2 mg/dl (8.6-10.3); Creatinine Clr Calc Pharmacy 44.4 ml/min; Est GFR (African American) 49.4 ml/min; Est GFR (Non-African American) 42.6 ml/min; Potassium 4.6 mmol/L (3.5-5.1)
[2023-04-25] MEDS: PANTOprazole 40 MG TAB PO SCH (10:25)
[2023-04-25] MEDS: UMECLIDINIUM/VILANTEROL 62.5/25MCG 7 PUFFS/INHALER INH SCH (10:26)
[2023-04-25] MEDS: SOTALOL HCL 80 MG TAB PO SCH (10:26)
[2023-04-25] MEDS ORDERED: SODIUM CHLORIDE 0.9% 250 ML IV PRN (10:33)
[2023-04-25 14:09] LABS: Hematocrit (blood only) 23.3 % (42.0-52.0); Hemoglobin 7.8 g/dl (14.0-18.0)
--- NOTE | 2023-04-25 15:53 | Electrocardiogram Report ---
Test Reason : Blood Pressure : / mmHG Vent. Rate : 074 BPM Atrial Rate : 075 BPM P-R Int : 000 ms QRS Dur : 108 ms QT Int : 394 ms P-R-T Axes : 072 -18 185 degrees QTc Int : 437 ms Ventricular-paced rhythm Abnormal ECG When compared with ECG of 09-APR-2023 10:24, Vent. rate has decreased BY 5 BPM Confirmed by Stephen Martins ([id number]) on 04/25/2023 3:52:57 PM Referred By: REFERRED SELF Confirmed By:Stephen Martins
--- NOTE | 2023-04-25 18:07 | Billing Data ---
Date of Service April 25, 2023 Coding Level of Care Code 21166 SUB INP/OBS CARE
[2023-04-25 18:10] LABS: Hematocrit (blood only) 22.4 % (42.0-52.0); Hemoglobin 7.6 g/dl (14.0-18.0)
--- NOTE | 2023-04-25 18:55 | Emergency Department Note ---
Impression & Plan Hematoma of left thigh, Anemia, Elevated troponin Admit to the [facility] ED Provider Note NAME: ALESSANDRO MONTERO AGE: 87 SEX: Male INFORMANT: Patient ED PROVIDER(S): Katiuska Shafer DO CHIEF COMPLAINT: Left thigh hematoma PLAN: Disposition: Admit to the [facility] MEDICAL DECISION MAKING: This is an 87-year-old male patient brought to the emergency department because of an enlarging hematoma to the left thigh. This has become quite painful to the patient. He is on Coumadin and this hematoma has spread more distally in that left lower extremity. Patient denies any specific trauma to that leg. Laboratory studies reveal an INR of 2.8. His hemoglobin has dropped from 12.1 on April 14 down to 9.0 today. Coagulation studies are normal. Patient does have an elevated white blood cell count tonight of 23.7. Lactate and procalcitonin are normal. Bio fire testing is negative. Sodium is low at 133. BUN of 38 and creatinine of 1.65. Troponin is elevated to 71. Ultrasound of that leg shows no obvious clot but there is this large hematoma noted in the proximal left leg/inguinal region. He was given a dose of Tylenol for his pain. Care/management discussed with: etl manager and [facility] Triage Nursing notes: Reviewed and agree with them. Vital Signs: reviewed and unremarkable Chronic Medical/Social Conditions affecting care: A-fib on Coumadin Differential Diagnosis: Traumatic injury to the leg; spontaneous bleed; chronic anticoagulation Diagnostics, independently interpreted by me: ECG: Ventricular paced rhythm at a rate of 80 Cardiac Monitoring: Ventricular paced rhythm at a rate of 81 Imaging studies: Left lower extremity duplex: See radiology report HPI: 87 year old Male arrives for evaluation of left leg hematoma. Patient noted a bruise to his proximal left thigh over the past couple of days. It has become increasingly painful and the patient was sent here for evaluation of this because it seems to be traveling further down the leg towards the knee. PAST MEDICAL HISTORY: See Below, PAST SURGICAL HISTORY: See Below, SOCIAL HISTORY: See Below, HOME MEDICATIONS: See list ALLERGIES: See list VITALS: See Below PHYSICAL EXAMINATION: HEENT: Head - normocephalic and atraumatic Pupils are equal, round, and reactive to light. Extraocular eye muscles are intact, and sclera are anicteric. Nose - moist nasal mucosa without discharge. Mouth - moist buccal mucosa. Oropharynx is nonerythematous and there is no tonsillar exudate or edema noted. Neck: Supple; no JVD, nuchal rigidity, cervical lymphadenopathy, or auscultated bruits. Heart: Regular rate and rhythm. There is a normal S1 and S2 with no murmurs, clicks, or gallops appreciated. Lungs: Clear to auscultation bilaterally with no wheezes, rales, or rhonchi. Abdomen: Soft, completely nontender, nondistended, with good bowel sounds. There are no palpable pulsatile masses or hepatosplenomegaly. There is no guarding, rigidity, or rebound noted. Extremities: Significant hematoma noted from the left inguinal canal midway down to the left anterior thigh. There are easily palpable peripheral pulses. Skin: Pale, warm and dry with good turgor and no rashes. Emergency department course: The patient was evaluated in room C10. A complete history and physical was performed. An IV lock was initiated and labs are drawn as above. Twelve-lead EKG was obtained as described above. An order was placed for continuous cardiac monitoring. The patient was in a ventricular paced rhythm at a rate of 81. Patient went for duplex of the left lower extremity as described above. Patient was given an oral dose of Tylenol for the pain in his left leg. Past Med/Surg History Medical History (Updated 04/25/23 @ 19:03 by Katiuska Shafer DO) Chronic anticoagulation CKD (chronic kidney disease), stage III Macular degeneration GETS SHOTS IN EYES FOR TREATMENT Q8-10 WEEKS Restless leg syndrome History of cardioversion History of atrial fibrillation Hypertension Aortic valve disorder Atrial flutter BPH with obstruction/lower urinary tract symptoms Coronary artery disease Nonobstructive on [facility] 2012 Ventral hernia Moderate obstructive sleep apnea Pseudogout Surgical History History of left cataract surgery 11/19/2019. propofol given. History of colonoscopy History of tooth extraction History of inguinal hernia repair LEFT X 2 History of vasectomy History of mitral valve replacement 4 YEARS AGO (DENICE TAYLOR) History of aortic valve replacement AT AGE 58 (DENICE TAYLOR) Family History Sister Heart disease Denies family history of Ovarian cancer Prostate cancer Myocardial infarction Breast cancer Colorectal cancer Social History Smoking Status: Unknown if ever smoked Second Hand Exposure: No; Do You Dip or Chew Tobacco: No; Hx Alcohol Use: Yes Alcohol type: wine Alcohol Intake Frequency: 2-3 x/Week Alcohol Intake Frequency Comment: 2 glasses of wine per week Hx Substance Use: No Preferred Language: Ivorian Communication Ability: Effective Visual Impairment: Diminished Hearing Ability: Normal Yarn Inspector Required: No Beliefs That Will Affect Care: None marital status: Current Living Situation: Spouse current occupational status: retired 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 Feels Safe at Home: Yes Childhood Exposure to Second-Hand Smoke: Yes Diet: regular Dental Care, Regularly: Yes Physical Activity Frequency: Daily Seatbelt Use: always Sunscreen Use: Yes (sometimes ) Assistive Devices: Walker Allergies Allergies Allergy/AdvReac Type Severity Reaction Status Date / Time cyclobenzaprine Allergy Intermediate ON THE Verified 04/25/23 12:12 [From Flexeril] [facility] MED LIST Penicillins Allergy Intermediate RASH Verified 04/25/23 12:12 celecoxib [From Celebrex] Allergy Unknown ON THE Verified 04/25/23 12:12 [facility] MED LIST simvastatin Allergy Unknown ON THE Verified 04/25/23 12:12 [facility] MED LIST Home Meds Home Medications Medication Instructions Recorded Confirmed sotalol 80 mg tablet 40 mg PO QAM 11/12/19 04/25/23 diclofenac sodium 1 % topical gel 4 g EXT QID PRN Pain 11/03/21 04/25/23 (Voltaren Arthritis Pain) magnesium oxide 400 mg PO DAILY 01/01/23 04/25/23 spironolactone 25 mg tablet 12.5 mg PO DAILY 01/01/23 04/25/23 vitamin B complex (B 1 tab PO DAILY 01/01/23 04/25/23 Complex-Vitamin B12 tablet) ascorbic acid (vitamin C) 500 mg 500 mg PO DAILY 04/09/23 04/25/23 tablet (Vitamin C) folic acid 400 mcg tablet 0.4 mg PO DAILY 04/09/23 04/25/23 doxycycline hyclate 100 mg tablet 100 mg PO BID 04/25/23 04/25/23 furosemide 20 mg tablet (Lasix) 20 mg PO DAILY 04/25/23 04/25/23 ipratropium 0.5 mg-albuterol 3 mg 3 ml inhalation Q6H PRN Shortness 04/25/23 04/25/23 (2.5 mg base)/3 mL nebulization Of Breath soln melatonin 3 mg tablet 3 mg PO HS 04/25/23 04/25/23 omega-3 fatty acids 1,000 mg 2,000 mg PO DAILY 04/25/23 04/25/23 capsule pantoprazole 40 mg tablet,delayed 40 mg PO DAILYBB 04/25/23 04/25/23 release polyethylene glycol 3350 17 17 g PO DAILY 04/25/23 04/25/23 gram/dose oral powder (Miralax) prednisone 20 mg tablet 20 mg PO DAILY 04/25/23 04/25/23 warfarin 4 mg tablet 4 mg PO [id number] 04/25/23 04/25/23 warfarin 6 mg tablet 3 mg PO 3XWK 04/25/23 04/25/23 Previous Rx's Medication Instructions Recorded diaper,brief,adult,disposable #100 ea 02/02/22 ([place] Choice Comfort Protect Adult Diaper X-Large) atorvastatin 20 mg tablet 20 mg PO HS #90 tabs 01/01/23 ropinirole 0.25 mg tablet 0.25 mg PO HS #90 tabs 01/08/23 acetaminophen 325 mg tablet 650 mg (2 x 325 mg) PO Q4H PRN #0 04/18/23 tabs gabapentin 100 mg capsule 100 mg PO BID #0 caps 04/18/23 sennosides 8.6 mg tablet (Senokot) 17.2 mg (2 x 8.6 mg) PO QAM #0 tabs 04/18/23 umeclidinium 62.5 mcg-vilanterol 1 inh inhalation DAILY #0 ea 04/18/23 25 mcg/actuation powdr for inhalation (Anoro Ellipta) Results & Data (ED) Vital Signs Vital Signs - 24 hr 04/25/23 02:29 04/25/23 02:29 04/25/23 02:44 Temperature 36.5 C 36.5 C Temperature Source Oral Oral Pulse Rate 74 73 Pulse Rate [Apical] 72 Pulse Rate from SpO2 Sensor Pulse Rhythm Regular Pulse Rhythm [Apical] Regular Pulse Strength Normal Pulse Strength [Apical] Normal Respiratory Rate 16 16 Respiratory Effort / Characteristics Non-Labored Non-Labored Respiratory Depth Normal Normal Respiratory Pattern Regular Blood Pressure 121/62 Blood Pressure [Left Arm] 121/82 Blood Pressure Mean 81 Blood Pressure Mean [Left Arm] 95 Blood Pressure Position [Left Arm] Pulse Oximetry 97 94 Oxygen Delivery Method Room Air Room Air Sepsis Recent Fever Within 48 Hours No Sepsis New/Unexplained Change in Mental Status No Sepsis Action Taken by Nursing No Action Required 04/25/23 03:27 04/25/23 03:31 04/25/23 03:31 Temperature Temperature Source Pulse Rate 74 Pulse Rate [Apical] Pulse Rate from SpO2 Sensor 74 Pulse Rhythm Pulse Rhythm [Apical] Pulse Strength Pulse Strength [Apical] Respiratory Rate 23 Respiratory Effort / Characteristics Respiratory Depth Respiratory Pattern Blood Pressure 146/60 H Blood Pressure [Left Arm] Blood Pressure Mean 65 Blood Pressure Mean [Left Arm] Blood Pressure Position [Left Arm] Pulse Oximetry 97 97 Oxygen Delivery Method Room Air Sepsis Recent Fever Within 48 Hours Sepsis New/Unexplained Change in Mental Status Sepsis Action Taken by Nursing 04/25/23 04:00 04/25/23 04:01 04/25/23 04:01 Temperature Temperature Source Pulse Rate 70 72 Pulse Rate [Apical] Pulse Rate from SpO2 Sensor 72 71 Pulse Rhythm Pulse Rhythm [Apical] Pulse Strength Pulse Strength [Apical] Respiratory Rate 16 19 Respiratory Effort / Characteristics Respiratory Depth Respiratory Pattern Blood Pressure 132/89 Blood Pressure [Left Arm] Blood Pressure Mean 114 Blood Pressure Mean [Left Arm] Blood Pressure Position [Left Arm] Pulse Oximetry 98 97 Oxygen Delivery Method Sepsis Recent Fever Within 48 Hours Sepsis New/Unexplained Change in Mental Status Sepsis Action Taken by Nursing 04/25/23 04:34 04/25/23 04:35 04/25/23 04:35 Temperature 36.8 C Temperature Source Oral Pulse Rate 75 Pulse Rate [Apical] 69 Pulse Rate from SpO2 Sensor 74 Pulse Rhythm Pulse Rhythm [Apical] Pulse Strength Pulse Strength [Apical] Respiratory Rate 13 18 Respiratory Effort / Characteristics Non-Labored Spontaneous Respiratory Depth Normal Respiratory Pattern Regular Blood Pressure 143/68 H Blood Pressure [Left Arm] 143/68 H Blood Pressure Mean 114 Blood Pressure Mean [Left Arm] 93 Blood Pressure Position [Left Arm] Semi-fowlers Pulse Oximetry 97 98 Oxygen Delivery Method Room Air Sepsis Recent Fever Within 48 Hours Sepsis New/Unexplained Change in Mental Status Sepsis Action Taken by Nursing 04/25/23 04:35 04/25/23 05:00 04/25/23 05:00 Temperature Temperature Source Pulse Rate 74 76 Pulse Rate [Apical] Pulse Rate from SpO2 Sensor 74 78 Pulse Rhythm Pulse Rhythm [Apical] Pulse Strength Pulse Strength [Apical] Respiratory Rate 19 21 Respiratory Effort / Characteristics Respiratory Depth Respiratory Pattern Blood Pressure 124/60 Blood Pressure [Left Arm] Blood Pressure Mean 73 Blood Pressure Mean [Left Arm] Blood Pressure Position [Left Arm] Pulse Oximetry 98 98 Oxygen Delivery Method Sepsis Recent Fever Within 48 Hours Sepsis New/Unexplained Change in Mental Status Sepsis Action Taken by Nursing 04/25/23 05:30 04/25/23 05:30 04/25/23 06:00 Temperature Temperature Source Pulse Rate 72 75 Pulse Rate [Apical] Pulse Rate from SpO2 Sensor 73 76 Pulse Rhythm Pulse Rhythm [Apical] Pulse Strength Pulse Strength [Apical] Respiratory Rate 20 22 Respiratory Effort / Characteristics Respiratory Depth Respiratory Pattern Blood Pressure 125/61 Blood Pressure [Left Arm] Blood Pressure Mean 77 Blood Pressure Mean [Left Arm] Blood Pressure Position [Left Arm] Pulse Oximetry 97 98 Oxygen Delivery Method Sepsis Recent Fever Within 48 Hours Sepsis New/Unexplained Change in Mental Status Sepsis Action Taken by Nursing 04/25/23 06:00 Temperature Temperature Source Pulse Rate Pulse Rate [Apical] Pulse Rate from SpO2 Sensor Pulse Rhythm Pulse Rhythm [Apical] Pulse Strength Pulse Strength [Apical] Respiratory Rate Respiratory Effort / Characteristics Respiratory Depth Respiratory Pattern Blood Pressure 141/64 H Blood Pressure [Left Arm] Blood Pressure Mean 109 Blood Pressure Mean [Left Arm] Blood Pressure Position [Left Arm] Pulse Oximetry Oxygen Delivery Method Sepsis Recent Fever Within 48 Hours Sepsis New/Unexplained Change in Mental Status Sepsis Action Taken by Nursing Laboratory Data 04/25/23 17:53 04/25/23 09:37 Lab Results 04/25/23 04/25/23 04/25/23 Range/Units 02:34 02:37 03:42 WBC 23.74 H (4.8-10.8) K/ul RBC 2.87 L (4.70-6.10) M/uL Hgb 9.0 L (14.0-18.0) g/dl Hct 27.0 L (42.0-52.0) % MCV 94.1 (80.0-100.0) fL MCH 31.4 (25.0-34.0) pg MCHC 33.3 (32.0-36.0) g/dL RDW Std Deviation 48.1 H (36.4-46.3) fL RDW Coeff of Cresencio 14.2 (11.5-14.5) % Plt Count 274 (130-400) K/uL MPV 10.7 (9.4-12.4) fL Immature Gran % (Auto) 1.0 % Neut % (Auto) 77.1 % Lymph % (Auto) 9.0 % [place] % (Auto) 12.6 % Eos % (Auto) 0.1 % Baso % (Auto) 0.2 % Neut # (Auto) 18.32 H (1.40-6.50) K/uL Lymph # (Auto) 2.13 (1.20-3.40) K/uL [place] # (Auto) 2.99 H (0.11-0.59) K/uL Eos # (Auto) 0.02 (0.00-0.50) K/uL Baso # (Auto) 0.05 (0.00-0.20) K/uL Immature Gran # (Auto) 0.23 H (0.01-0.20) K/uL PT 28.8 H (9.0-12.0) Seconds INR 2.8 H (0.9-1.1) APTT 49 H (21-31) Seconds PTT Ratio 1.7 Sodium 133 L (136-145) mmol/L Potassium TNP Chloride 98 (98-107) mmol/L Carbon Dioxide 30 (21-32) mmol/L Anion Gap 5 (3-11) BUN 38 H (6-23) mg/dl Creatinine 1.65 H (0.6-1.4) mg/dl Est Cr Clr Drug Dosing 39.6 ml/min Est GFR ( Amer) 42.9 ml/min Est GFR (Non-Af Amer) 37.0 ml/min BUN/Creatinine Ratio 23.0 H (10-20) Glucose 108 H (70-99(Fasting)) mg/dl Lactate (0.4-2.0) mmol/L Calcium 8.6 (8.6-10.3) mg/dl Magnesium 2.0 (1.7-2.4) mg/dl Total Bilirubin 0.6 (0.2-1.0) mg/dl Direct Bilirubin TNP AST TNP ALT 59 H (7-52) U/L Alkaline Phosphatase 46 (34-104) U/L Troponin I High Sens 68.3 H* (0-20) pg/ml Total Protein 6.7 (6.0-8.3) gm/dl Albumin 3.2 L (3.4-5.0) gm/dl Globulin 3.5 (2.5-4.0) gm/dl Albumin/Globulin Ratio 0.9 (0.9-2) Procalcitonin 0.08 (0-0.5) ng/ml Urine Color Dark Yellow Urine Appearance Clear (Clear) Urine pH 5.0 (4.5-7.5) Ur Specific [place] 1.032 H (1.000-1.030) Urine Protein 1+ H (Negative) Urine Glucose (UA) Negative (Negative) Urine Ketones Trace H (Negative) Urine Blood Negative (Negative) Urine Nitrite Negative (Negative) Urine Bilirubin Negative (Negative) Urine Urobilinogen Negative (Negative) Ur Leukocyte Esterase Negative (Negative) Urine WBC (Auto) 1-5 (0-5) /hpf Urine RBC (Auto) 0-4 (0-4) /hpf U Hyaline Cast (Auto) 1-5 (0-5) /lpf U Epithel Cells (Auto) 10-20 H (0-5) /lpf Urine Bacteria (Auto) Negative (Negative) Adenovirus (PCR) Not Detected (NotDetected) B. pertussis DNA (PCR) Not Detected (NotDetected) B.parapertussis DNA PCR Not Detected (NotDetected) C. pneumoniae DNA (PCR) Not Detected (NotDetected) Coronavirus OC43 (PCR) Not Detected (NotDetected) Coronavirus HKU1 (PCR) Not Detected (NotDetected) Coronavirus 229E (PCR) Not Detected (NotDetected) SARS-CoV-2 (PCR) Not Detected (NotDetected) Coronavirus NL63 (PCR) Not Detected (NotDetected) Human Metapneumovir PCR Not Detected (NotDetected) Influenza Type A (PCR) Not Detected (NotDetected) Influenza Type B (PCR) Not Detected (NotDetected) M. pneumoniae (PCR) Not Detected (NotDetected) Parainfluenza 1 (PCR) Not Detected (NotDetected) Parainfluenza 2 (PCR) Not Detected (NotDetected) Parainfluenza 3 (PCR) Not Detected (NotDetected) Parainfluenza 4 (PCR) Not Detected (NotDetected) RSV (PCR) Not Detected (NotDetected) Entero/Rhino (PCR) Not Detected (NotDetected) 04/25/23 04/25/23 Range/Units 03:47 03:48 WBC (4.8-10.8) K/ul RBC (4.70-6.10) M/uL Hgb (14.0-18.0) g/dl Hct (42.0-52.0) % MCV (80.0-100.0) fL MCH (25.0-34.0) pg MCHC (32.0-36.0) g/dL RDW Std Deviation (36.4-46.3) fL RDW Coeff of Cresencio (11.5-14.5) % Plt Count (130-400) K/uL MPV (9.4-12.4) fL Immature Gran % (Auto) % Neut % (Auto) % Lymph % (Auto) % [place] % (Auto) % Eos % (Auto) % Baso % (Auto) % Neut # (Auto) (1.40-6.50) K/uL Lymph # (Auto) (1.20-3.40) K/uL [place] # (Auto) (0.11-0.59) K/uL Eos # (Auto) (0.00-0.50) K/uL Baso # (Auto) (0.00-0.20) K/uL Immature Gran # (Auto) (0.01-0.20) K/uL PT (9.0-12.0) Seconds INR (0.9-1.1) APTT (21-31) Seconds PTT Ratio Sodium (136-145) mmol/L Potassium 4.7 Chloride (98-107) mmol/L Carbon Dioxide (21-32) mmol/L Anion Gap (3-11) BUN (6-23) mg/dl Creatinine (0.6-1.4) mg/dl Est Cr Clr Drug Dosing ml/min Est GFR ( Amer) ml/min Est GFR (Non-Af Amer) ml/min BUN/Creatinine Ratio (10-20) Glucose (70-99(Fasting)) mg/dl Lactate 1.2 (0.4-2.0) mmol/L Calcium (8.6-10.3) mg/dl Magnesium (1.7-2.4) mg/dl Total Bilirubin (0.2-1.0) mg/dl Direct Bilirubin 0.1 AST 44 H ALT (7-52) U/L Alkaline Phosphatase (34-104) U/L Troponin I High Sens 71.9 H* (0-20) pg/ml Total Protein (6.0-8.3) gm/dl Albumin (3.4-5.0) gm/dl Globulin (2.5-4.0) gm/dl Albumin/Globulin Ratio (0.9-2) Procalcitonin (0-0.5) ng/ml Urine Color Urine Appearance (Clear) Urine pH (4.5-7.5) Ur Specific [place] (1.000-1.030) Urine Protein (Negative) Urine Glucose (UA) (Negative) Urine Ketones (Negative) Urine Blood (Negative) Urine Nitrite (Negative) Urine Bilirubin (Negative) Urine Urobilinogen (Negative) Ur Leukocyte Esterase (Negative) Urine WBC (Auto) (0-5) /hpf Urine RBC (Auto) (0-4) /hpf U Hyaline Cast (Auto) (0-5) /lpf U Epithel Cells (Auto) (0-5) /lpf Urine Bacteria (Auto) (Negative) Adenovirus (PCR) (NotDetected) B. pertussis DNA (PCR) (NotDetected) B.parapertussis DNA PCR (NotDetected) C. pneumoniae DNA (PCR) (NotDetected) Coronavirus OC43 (PCR) (NotDetected) Coronavirus HKU1 (PCR) (NotDetected) Coronavirus 229E (PCR) (NotDetected) SARS-CoV-2 (PCR) (NotDetected) Coronavirus NL63 (PCR) (NotDetected) Human Metapneumovir PCR (NotDetected) Influenza Type A (PCR) (NotDetected) Influenza Type B (PCR) (NotDetected) M. pneumoniae (PCR) (NotDetected) Parainfluenza 1 (PCR) (NotDetected) Parainfluenza 2 (PCR) (NotDetected) Parainfluenza 3 (PCR) (NotDetected) Parainfluenza 4 (PCR) (NotDetected) RSV (PCR) (NotDetected) Entero/Rhino (PCR) (NotDetected) Administered Medications Acetaminophen (Acetaminophen 325 Mg Tab) 650 mg PO Q4H PRN PRN Reason: Pain or Fever Stop: 05/25/23 08:07 Last Admin: 04/25/23 13:05 Dose: 650 mg Documented By: Admin: 04/25/23 08:27 Dose: 650 mg Documented By: DARLENE Pantoprazole Sodium (Pantoprazole 40 Mg Tab) [facility] [place] Stop: 05/25/23 08:59 Last Admin: 04/25/23 10:25 Dose: 40 mg Documented By: DARLENE Sotalol HCl (Sotalol Hcl 80 Mg Tab) 40 mg PO QAM [facility] Stop: 05/25/23 08:59 Last Admin: 04/25/23 10:26 Dose: 40 mg Documented By: DARLENE Umeclidinium/Vilanterol (Umeclidinium/Vilanterol 62.5/25mcg 7 Puffs/Inhaler) 1 puffs INH DAILY [facility] Stop: 05/25/23 08:59 Last Admin: 04/25/23 10:26 Dose: 1 puffs Documented By: DARLENE Discontinued Medications Acetaminophen (Acetaminophen 500 Mg Tab) 1,000 mg PO NOW STA Stop: 04/25/23 04:39 Last Admin: 04/25/23 04:42 Dose: 1,000 mg Documented By: MEGAN Ceftriaxone Sodium 2,000 mg/ (Dextrose) 50 mls @ 100 mls/hr IV NOW STA; Protocol Stop: 04/25/23 06:33 Last Infusion: 04/25/23 07:46 Dose: Infused Documented By: Admin: 04/25/23 06:38 Dose: 100 mls/hr Documented By: MEGAN Sodium Chloride (Nss) 500 mls @ 999 mls/hr IV .Q31M ONE Stop: 04/25/23 06:34 Last Infusion: 04/25/23 07:46 Dose: Infused Documented By: Admin: 04/25/23 06:38 Dose: 999 mls/hr Documented By: MEGAN Imaging Data Radiologist's Impression: Chest X-Ray 04/25/23 03:19 XR chest 1V portable CLINICAL HISTORY: Sepsis TECHNIQUE: Single frontal radiograph of the chest was obtained. Comparison: Comparison is made to chest radiograph 04/12/2023 FINDINGS: Median sternotomy wires are unchanged. Cardiomegaly is noted. Interval improvement in previously noted bibasilar opacities. No evidence of pleural effusion or pneumothorax. IMPRESSION: Interval improvement in previously noted bibasilar opacities. ACT 112: Negative or not required by law. Electronically signed by: Brandon Flowers M.D. 04/25/2023 8:05 AM Discharge Plan Visit Data Chief Complaint: Swelling/Edema to Extremity Stated Complaint: Swelling to L Leg, Difficulty Ambulating ED Provider: Katiuska Shafer Discharge Problem: Hematoma of left thigh, Anemia, Elevated troponin Patient Disposition: Admitted As Inpatient Discharge Instructions Interventions: ED Discharge Assessment Last Done: 04/25/23 08:05 Discharge Problem: Hematoma of left thigh Qualifiers: Encounter type: initial encounter Qualified Code(s): S70.12XA - Contusion of left thigh, initial encounter Anemia Qualifiers: Anemia type: unspecified type Qualified Code(s): D64.9 - Anemia, unspecified
[2023-04-25 21:37] LABS: Hematocrit (blood only) 22.8 % (42.0-52.0); Hemoglobin 7.7 g/dl (14.0-18.0)
[2023-04-26 01:44] LABS: Hematocrit (blood only) 21.6 % (42.0-52.0); Hemoglobin 7.3 g/dl (14.0-18.0)
[2023-04-26] MEDS ORDERED: cefTRIAXone SODIUM 2,000 MG in DEXTROSE 5 % MINI-B 50 ML IV SCH (06:00)
[2023-04-26 06:43] LABS: Hematocrit (blood only) 20.9 % (42.0-52.0); Mean Corpuscular Hemoglobin 31.3 pg (25.0-34.0); Mean Corpuscular Hgb Conc 33.5 g/dL (32.0-36.0); Mean Corpuscular Volume 93.3 fL (80.0-100.0); Mean Platelet Volume 10.6 fL (9.4-12.4); Platelet Count 248 K/uL (130-400); RDW Coefficient of Variation 14.6 % (11.5-14.5); RDW Standard Deviation 48.1 fL (36.4-46.3); Red Blood Count 2.24 M/uL (4.70-6.10); White Blood Count 21.99 K/ul (4.8-10.8)
[2023-04-26 06:45] LABS: Albumin Level 2.9 gm/dl (3.4-5.0); BUN Creatinine Ratio 23.3 (10-20); Bilirubin,Total 0.7 mg/dl (0.2-1.0); Calcium 8.3 mg/dl (8.6-10.3); Creatinine Clr Calc Pharmacy 42.7 ml/min; Est GFR (African American) 48.2 ml/min; Est GFR (Non-African American) 41.6 ml/min; Potassium 4.7 mmol/L (3.5-5.1); Total Protein 5.9 gm/dl (6.0-8.3)
[2023-04-26] MEDS ORDERED: SODIUM CHLORIDE 0.9% 250 ML IV PRN (07:18)
[2023-04-26] MEDS ORDERED: STAT IV/IM STA (07:19)
[2023-04-26] MEDS ORDERED: PROTHROMBIN COMP KCENTRA IV STA (07:19)
[2023-04-26 07:22] LABS: Basophils # (auto) 0.04 K/uL (0.00-0.20); Basophils % (auto) 0.2 %; Eosinophils # (auto) 0.02 K/uL (0.00-0.50); Eosinophils % (auto) 0.1 %; Immature Granulocytes # (auto) 0.19 K/uL (0.01-0.20); Immature Granulocytes % (auto) 0.9 %; Lymphocytes # (auto) 1.78 K/uL (1.20-3.40); Lymphocytes % (auto) 8.1 %; Monocytes # (auto) 2.83 K/uL (0.11-0.59); Monocytes % (auto) 12.9 %; Neutrophils # (auto) 17.13 K/uL (1.40-6.50); Neutrophils % (auto) 77.8 %; Polychromasia 1+
[2023-04-26 07:49] LABS: INR 1.7 (0.9-1.1); Partial Thromboplastin Ratio 1.5; Partial Thromboplastin Time 42 Seconds (21-31); Prothrombin Time 17.8 Seconds (9.0-12.0)
[2023-04-26] MEDS ORDERED: PHYTONADIONE 10 MG in DEXTROSE 5% 50 ML IV ONE (08:30)
[2023-04-26] MEDS ORDERED: FOLIC ACID 1 MG TAB PO SCH (09:00)
[2023-04-26] MEDS: SOTALOL HCL 80 MG TAB PO SCH (09:21)
[2023-04-26] MEDS: UMECLIDINIUM/VILANTEROL 62.5/25MCG 7 PUFFS/INHALER INH SCH (09:22)
[2023-04-26] MEDS: PANTOprazole 40 MG TAB PO SCH (09:24)
[2023-04-26] MEDS: ACETAMINOPHEN 325 MG TAB PO PRN (11:58)
--- NOTE | 2023-04-26 14:22 | Electrocardiogram Report ---
Test Reason : Blood Pressure : / mmHG Vent. Rate : 084 BPM Atrial Rate : 084 BPM P-R Int : 134 ms QRS Dur : 140 ms QT Int : 394 ms P-R-T Axes : 078 -18 174 degrees QTc Int : 465 ms Atrial-sensed ventricular-paced rhythm Abnormal ECG When compared with ECG of 25-APR-2023 03:36, Vent. rate has increased BY 10 BPM Confirmed by Stephen Martins ([id number]) on 04/26/2023 2:22:04 PM Referred By: REFERRED SELF Confirmed By:Stephen Martins
[2023-04-26 16:36] LABS: Hematocrit (blood only) 22.9 % (42.0-52.0)
--- NOTE | 2023-04-26 17:20 | Hospitalist Progress Note ---
Date of Service April 26, 2023 Assessment & Plan (1) Hematoma of left inguinal region: Plan (1) Hematoma of left inguinal region: (2) Coronary artery disease: (3) Atrial flutter: (4) Ambulatory dysfunction: (5) (HFpEF) heart failure with preserved ejection fraction: (6) History of atrial fibrillation: (7) History of aortic valve replacement: (8) History of mitral valve replacement: (9) CKD (chronic kidney disease), stage III: (10) Chronic anticoagulation: Plan Hematoma - left inguinal region/chronic anticoagulation/status post fall/symptomatic anemia- Ultrasound report: 12.5 x 11.1 x 20.4 cm left groin fluid collection Patient reports a fall about several weeks ago, with worsening left groin pain and swelling and left lower extremity swelling Hemoglobin 9.0, with baseline 1 week ago 12.1 Order type and screen Venous Doppler negative for DVT, suggesting obstruction of venous return of left lower extremity due to left groin hematoma CT scan w/con held to assess for active bleed, until patient gets fluid bolus to try to improve PAOLO (Cr 1.65: bCr 1.25 - 1.4) Cr, 1.5 <-- 1.47 <-- 1.65 Consult to vascular surgery if indicated Hgb (from 04/25 - 04/26) 7.0 <- 7.3 <- 7.7 <- 7.6 <- 7.8 <- 8.0 <- 9.0 Received 10 mg vit K, 1 unit of pRBCs morning of 04/26 --> post-transfusion Hgb 8.0 (04/26/23: 15:00) H&H every 4 hours x 10, starting 04/26/23: 15:00 - CBC w/ diff, chemistry profile, PT/PT/INR every morning Hold warfarin: INR, 1.7 (04/26/23) CRP, 18.8 (04/26/23) Left inguinal hematoma decreased size this morning Atrial fibrillation/bovine MVR/metallic AVR/elevated troponin/HFpEF- The patient will be admitted to telemetry for serial cardiac enzymes, serial EKG's, cardiac rhythm monitoring Most recent echo on 04/12/2023 with ejection fraction 55-60% Troponin initially 68.3 with follow-up 71.9, likely supply demand type II Hold warfarin due to groin hematoma as noted above Hold furosemide, Mg-oxide, spironolactone and warfarin Continue sotalol COPD Hospitalized from 04/09-04/18/2023 for COPD exacerbation Anoro Ellipta added at that time, continue Continue albuterol nebulizer 4 times daily as needed Admission and Anticipated Discharge Date Admission Date: April 25, 2023 Supervising Physician Co-Signing Physician Notes I personally examined the patient and verified all talavera points of history and exam, discussed case, and agree with decision making with Dr Kearney Seen several times post transfusion todaylightheadedness persists but is much better than before. Otherwise no new complaints. Answered all questions both his and his 's to the best my ability and to their satisfaction. Vitals noted, in general he is awake and alert pleasant no distress. HEENT normocephalic atraumatic mucous membranes moist. Breathing unlabored no accessory muscle use good effort. Skin shows no rashes no pallor or icterus. He does have a large degree of bruising and tracking down his left legit is definitely less firm but is also definitely more diffuse than yesterday, surprisingly not that tender. Left thigh a spontaneous hematoma with acute blood loss anemiain the context of chronic anticoagulation for a mitral valve replacementIn the acute context of having required bridging anticoagulation with Lovenox due to a subtherapeutic INR. unfortunately his hemoglobin continued to trend down, and his symptoms from acute blood loss anemia worsened (worsening lightheadedness) and therefore anticoagulation was reversed and 1 unit packed red cells ordered. Will hold off on anticoagulation for a dayif his hemoglobin holds steady into tomorrow, given the mechanical mitral valve, we will start a heparin drip tomorrow; if his hemoglobin is still unstable, obviously will need to hold off longer, and then we will plan on running him on a heparin drip for at least a day, if not longer to ensure stability before resuming Coumadin. Given that his spontaneous bleed happened during bridging therapy, he/his /myself all agree that it seems necessary to be monitoring him in the hospital until he is therapeutic on Cou madin alone prior to discharge. They are aware that unfortunately this will likely lead to a fairly prolonged hospital stay well into next week. As far as the anemiahis hemoglobin improved nicely from 78 with 1 unit, we will follow how his symptoms are doing, if he still lightheaded, we may need to transfuse a second unit for ongoing symptomatic anemia. Leukocytosis likely demargination, no overt signs or symptoms of infection, continue to follow both his white count and his overall clinical picture. Subjective Chief Complaint: left groin pain and left lower extremity swelling worsening over the past week after a fall ~ 2-3 weeks ago, where his walker got caught on commode and he fell over. Denied head trauma or other discomfort. Primary Care Provider: Clau Mederos MD The patient is an 87 yo M w/ a PMHx of esophageal dysmotility, granulomatous lung disease, CAD, Aflutter, AFib, mechanical AVR, bovine MVR, CKD stage III, RLS, idiopathic polyneuropathy, ambulatory dysfunction, HFpEF, right knee pseudogout, restrictive lung disease, hypercholesterolemia and chronic obstructive asthma. Patient presents to the emergency department with complaint of worsening left groin pain and swelling and LLE swelling after a ground-level fall with his walker about 1 week ago. This morning patient was severely fatigued, with significant shortness of breath (taking breaths in middle of sentences), with his most recent Hgb of 7.0. Review of Systems Constitutional: + body aches (only l. leg) and + fatigue ; no fever and no chills Respiratory: no cough, no dyspnea and no pain on inspiration Cardiovascular: no chest pain and no palpitations Gastrointestinal: + constipation; no abdominal pain, no na usea, no vomiting and no diarrhea/loose stools Genitourinary: no dysuria, no urinary frequency (baseline freq from diuretic) or no hematuria Neurologic: + tingling and + numbness Hematologic / Lymphatic: no easy bleeding Physical Exam Constitutional: WD/WN, vitals as above Respiratory: coarse breath sounds Cardiovascular: RRR, no murmur, no edema Gastrointestinal (Abdomen): normal bowel sounds, soft, nontender, no hepatosplenomegaly Psychiatric: A+Ox3, euthymic affect Affect: + flat affect and + blunted affect Results & Data Results & Data Vital Signs (Past 12 Hours) Vital Signs Temp Pulse Pulse Resp BP BP Pulse Ox 04/26/23 16:00 36.4 C L 70 18 106/64 96 04/26/23 15:00 80 04/26/23 13:50 36.9 C 80 112/68 04/26/23 12:50 36.3 C L 71 108/65 04/26/23 12:20 36.4 C L 75 16 114/65 04/26/23 12:05 36.9 C 76 107/61 04/26/23 11:45 36.6 C 86 16 100/58 L 04/26/23 11:08 36.3 C L 79 22 126/65 95 04/26/23 09:00 84 04/26/23 08:23 37.0 C 78 20 124/66 94 O2 Del Method 04/26/23 16:00 Room Air 04/26/23 15:00 04/26/23 13:50 04/26/23 12:50 04/26/23 12:20 04/26/23 12:05 04/26/23 11:45 04/26/23 11:08 Room Air 04/26/23 09:00 04/26/23 08:23 Room Air
--- NOTE | 2023-04-26 19:34 | Billing Data ---
Date of Service April 26, 2023 Coding Level of Care Code 09406 SUB INP/OBS CARE MIN
[2023-04-26 20:55] LABS: Hematocrit (blood only) 22.4 % (42.0-52.0); Hemoglobin 7.7 g/dl (14.0-18.0)
[2023-04-26] MEDS ORDERED: ATORVASTATIN 20 MG TAB PO SCH (21:00)
[2023-04-26 23:58] LABS: Hematocrit (blood only) 21.3 % (42.0-52.0); Hemoglobin 7.2 g/dl (14.0-18.0)
[2023-04-27 03:55] LABS: Albumin Globulin Ratio 0.9 (0.9-2); Albumin Level 2.8 gm/dl (3.4-5.0); Bilirubin,Total 0.9 mg/dl (0.2-1.0); Calcium 8.1 mg/dl (8.6-10.3); Creatinine Clr Calc Pharmacy 38.3 ml/min; Est GFR (African American) 42.3 ml/min; Est GFR (Non-African American) 36.5 ml/min; Potassium 4.4 mmol/L (3.5-5.1); Total Protein 5.8 gm/dl (6.0-8.3)
[2023-04-27 04:18] LABS: INR 1.1 (0.9-1.1); Partial Thromboplastin Ratio 1.2; Partial Thromboplastin Time 33 Seconds (21-31)
[2023-04-27 04:38] LABS: Hematocrit (blood only) 20.9 % (42.0-52.0); Hemoglobin 7.3 g/dl (14.0-18.0); Mean Corpuscular Hemoglobin 31.2 pg (25.0-34.0); Mean Corpuscular Hgb Conc 34.9 g/dL (32.0-36.0); Mean Corpuscular Volume 89.3 fL (80.0-100.0); Mean Platelet Volume 10.3 fL (9.4-12.4); Platelet Count 217 K/uL (130-400); RDW Coefficient of Variation 16.4 % (11.5-14.5); RDW Standard Deviation 52.4 fL (36.4-46.3); Red Blood Count 2.34 M/uL (4.70-6.10); White Blood Count 18.03 K/ul (4.8-10.8)
[2023-04-27 04:39] LABS: Basophils # (auto) 0.03 K/uL (0.00-0.20); Basophils % (auto) 0.2 %; Eosinophils # (auto) 0.11 K/uL (0.00-0.50); Eosinophils % (auto) 0.6 %; Immature Granulocytes # (auto) 0.15 K/uL (0.01-0.20); Immature Granulocytes % (auto) 0.8 %; Lymphocytes # (auto) 1.61 K/uL (1.20-3.40); Lymphocytes % (auto) 8.9 %; Monocytes # (auto) 2.55 K/uL (0.11-0.59); Monocytes % (auto) 14.1 %; Neutrophils # (auto) 13.58 K/uL (1.40-6.50); Neutrophils % (auto) 75.4 %; Polychromasia 1+
[2023-04-27] MEDS: UMECLIDINIUM/VILANTEROL 62.5/25MCG 7 PUFFS/INHALER INH SCH (08:41)
[2023-04-27] MEDS: PANTOprazole 40 MG TAB PO SCH (08:41)
[2023-04-27] MEDS: SOTALOL HCL 80 MG TAB PO SCH (08:41)
--- NOTE | 2023-04-27 09:13 | Hospitalist Progress Note ---
Date of Service April 27, 2023 Assessment & Plan (1) Hematoma of left inguinal region: (2) Anemia: (3) Hematoma of left thigh: (4) Chronic anticoagulation: (5) Coronary artery disease: Plan (1) Hematoma of left inguinal region (2) Symptomatic anemia (3) Hx of AFib/Hx of aortic valve replacement/Hx of mitral valve replacement/Chronic anticoagulation (4) Coronary artery disease (5) Ambulatory dysfunction (6) (HFpEF) heart failure with preserved ejection fraction (7) CKD (chronic kidney disease), stage III (8) Atrial flutter: Plan Hematoma (left inguinal region)/chronic anticoagulation/symptomatic anemia Ultrasound report: 12.5 x 11.1 x 20.4 cm left groin fluid collection Patient reports a fall about several weeks ago, with worsening left groin pain and swelling and left lower extremity swelling Hemoglobin 9.0, with baseline 1 week ago 12.1 Order type and screen Venous Doppler negative for DVT, suggesting obstruction of venous return of left lower extremity due to left groin hematoma CT scan w/con held to assess for active bleed, until patient gets fluid bolus to try to improve PAOLO (Cr 1.65: bCr 1.25 - 1.4) Cr, 1.67 <-- 1.5 <-- 1.47 <-- 1.65 Consult to vascular surgery if indicated Hgb (from 04/25 - 04/26) 7.0 <- 7.3 <- 7.6 <- 8.0 <- 9.0 Received 10 mg vit K, 1 unit of pRBCs morning of 04/26, post-trans Hgb 8.0 Received 1 more unit of pRBCs morning of 04/27, Post-transfusion Hgb, 7.6 H&H every 4 hours x 10, starting 04/26/23: 15:00 - CBC w/ diff, chemistry profile, PT/PT/INR every morning Hold warfarin: INR, 1.7 (04/26/23), 1.1 (04/27/23) CRP, 18.8 (04/26/23) Left inguinal hematoma continues to decrease in size Atrial fibrillation/bovine MVR/metallic AVR/elevated troponin/HFpEF- The patient was admitted to telemetry for serial cardiac enzymes, serial EKG's, cardiac rhythm monitoring Most recent echo on 04/12/2023 with ejection fraction 55-60% Troponin initially 68.3 --> 71.9 --> 68.0, likely supply demand type II Hold warfarin due to groin hematoma as noted above Hold furosemide, Mg-oxide, spironolactone Continue sotalol COPD Hospitalized from 04/09-04/18/2023 for COPD exacerbation Anoro Ellipta added at that time, continue Continue albuterol nebulizer 4 times daily as needed Admission and Anticipated Discharge Date Admission Date: April 25, 2023 Supervising Physician Co-Signing Physician Notes I personally examined the patient and verified all talavera points of history and exam, discussed case, and agree with decision making with Dr Kearney a little sob. later revisited breathing better but not perfect. Vitals noted, in general he is awake and alert pleasant but mild respiratory distress earlier; better but still mildly persistent later. HEENT normocephalic atraumatic mucous membranes moist. Breathing unlabored no accessory muscle use good effort. moderate base rales earlier faint base rales later. Skin shows no rashes no pallor or icterus. He does have a large degree of bruising and tracking down his left legit is definitely less firm but is also definitely more diffuse than yesterday, surprisingly not that tender. Left thigh a spontaneous hematoma with acute blood loss anemiain the context of chronic anticoagulation for a mitral valve replacementIn the acute context of having required bridging anticoagulation with Lovenox due to a subtherapeutic INR. unfortunately his hemoglobin still continued to trend down, and his symptoms from acute blood loss anemia recurred (lightheadedness) and therefore anticoagulation was reversed and 1 unit packed red cells ordered 04/26. will give additional 2 units today. acute diastolic failure - lasix 40mg IV before first unit, before second unit. Will hold off on anticoagulation for another dayif his hemoglobin holds steady into tomorrow, given the mechanical mitral valve, we will start a heparin drip tomorrow. Given that his spontaneous bleed happened during bridging therapy, he/his /myself all agree that it seems necessary to be monitoring him in the hospital until he is therapeutic on Coumadin alone prior to discharge. They are aware that unfortunately this will likely lead to a fairly prolonged hospital stay well into next week. Leukocytosis likely demargination, no overt signs or symptoms of infection, continue to follow both his white count and his overall clinical picture. Subjective Chief Complaint: left groin pain and left lower extremity swelling worsening over the past week after a fall ~ 2-3 weeks ago, where his walker got caught on commode and he fell over. Denied head trauma or other discomfort. Primary Care Provider: Clau Mederos MD The patient is an 87 yo M w/ a PMHx of esophageal dysmotility, granulomatous lung disease, CAD, Aflutter, AFib, mechanical AVR, bovine MVR, CKD stage III, RLS, idiopathic polyneuropathy, ambulatory dysfunction, HFpEF, right knee pseudogout, restrictive lung disease, hypercholesterolemia and chronic obstructive asthma. Patient presents to the emergency department with complaint of worsening left groin pain and swelling and LLE swelling after a ground-level fall with his walker about 1 week ago. This morning patient was noticeably fatigued, with shortness of breath (taking breaths in middle of sentences), though pt endorsed feeling less fatigued than day before, with his most recent Hgb of 7.3. The patient's hematoma feels less painful this morning, with the area of erythematous, indurated, skin receding to only l. groin, scrotal area, and l. upper thigh in comparison to day before. Evidence of blood from hematoma now having trickled down into l. calf. Review of Systems Constitutional: + body aches (only l. leg) and + fatigue ; no fever and no chills Respiratory: + dyspnea; no cough and no pain on inspi ration Cardiovascular: no chest pain and no palpitations Gastrointestinal: + constipation; no abdominal pain, no na usea, no vomiting and no diarrhea/loose stools Genitourinary: no dysuria, no urinary frequency (baseline freq from diuretic) or no hematuria Neurologic: + tingling (l. leg/thigh and groin area) and + numbness Hematologic / Lymphatic: no easy bleeding (no nose bleeds noticed o/n) Physical Exam Constitutional: WD/WN, vitals as above Respiratory: normal respiratory effort, lungs clear to auscultation Cardiovascular: RRR, no murmur, no edema Gastrointestinal (Abdomen): normal bowel sounds, soft, nontender, no hepatosplenomegaly Psychiatric: A+Ox3, euthymic affect Results & Data Results & Data Vital Signs (Past 12 Hours) Vital Signs Temp Pulse Pulse Resp BP Pulse Ox O2 Del Method 04/27/23 07:24 36.6 C 75 20 106/55 L 95 Room Air 04/27/23 03:59 36.7 C 73 22 116/67 93 Room Air 04/26/23 23:30 36.7 C 79 24 111/64 96 Room Air 04/26/23 22:37 68 (2) Anemia Anemia type: unspecified type Qualified Code(s): D64.9 - Anemia, unspecified (3) Hematoma of left thigh Encounter type: initial encounter Qualified Code(s): S70.12XA - Contusion of left thigh, initial encounter
[2023-04-27 11:54] LABS: Hematocrit (blood only) 22.8 % (42.0-52.0); Hemoglobin 7.6 g/dl (14.0-18.0)
[2023-04-27] MEDS ORDERED: SODIUM CHLORIDE 0.9% 250 ML IV PRN (12:10)
--- NOTE | 2023-04-27 12:37 | Electrocardiogram Report ---
Test Reason : Blood Pressure : / mmHG Vent. Rate : 079 BPM Atrial Rate : 079 BPM P-R Int : 130 ms QRS Dur : 160 ms QT Int : 416 ms P-R-T Axes : 086 -15 175 degrees QTc Int : 477 ms Atrial-sensed ventricular-paced rhythm Abnormal ECG When compared with ECG of 26-APR-2023 05:29, Vent. rate has decreased BY 5 BPM Confirmed by Stephen Martins ([id number]) on 04/27/2023 12:36:57 PM Referred By: REFERRED SELF Confirmed By:Stephen Martins
[2023-04-27] MEDS ORDERED: FUROSEMIDE 40 MG/4 ML VIAL IV ONE ×2 (13:24→18:32)
--- NOTE | 2023-04-27 19:24 | Billing Data ---
Date of Service April 27, 2023 Coding Level of Care Code 72988 SUB INP/OBS CARE
--- NOTE | 2023-04-27 19:25 | Billing Data ---
Date of Service April 27, 2023 Coding Level of Care Code 31387 SUB INP/OBS CARE
[2023-04-28 00:53] LABS: Hematocrit (blood only) 27.4 % (42.0-52.0); Hemoglobin 9.3 g/dl (14.0-18.0)
[2023-04-28 06:08] LABS: Basophils # (auto) 0.02 K/uL (0.00-0.20); Basophils % (auto) 0.1 %; Eosinophils # (auto) 0.04 K/uL (0.00-0.50); Eosinophils % (auto) 0.2 %; Hematocrit (blood only) 27.1 % (42.0-52.0); Hemoglobin 9.5 g/dl (14.0-18.0); Immature Granulocytes # (auto) 0.14 K/uL (0.01-0.20); Immature Granulocytes % (auto) 0.8 %; Mean Corpuscular Hemoglobin 30.2 pg (25.0-34.0); Mean Corpuscular Hgb Conc 35.1 g/dL (32.0-36.0); Mean Platelet Volume 10.5 fL (9.4-12.4); Monocytes # (auto) 2.63 K/uL (0.11-0.59); Monocytes % (auto) 14.1 %; Neutrophils # (auto) 14.51 K/uL (1.40-6.50); Neutrophils % (auto) 77.8 %; Platelet Count 203 K/uL (130-400); RDW Coefficient of Variation 17.7 % (11.5-14.5); RDW Standard Deviation 54.7 fL (36.4-46.3); Red Blood Count 3.15 M/uL (4.70-6.10); White Blood Count 18.64 K/ul (4.8-10.8)
[2023-04-28 06:26] LABS: BUN Creatinine Ratio 24.7 (10-20); Calcium 8.2 mg/dl (8.6-10.3); Creatinine Clr Calc Pharmacy 41.6 ml/min; Est GFR (African American) 46.7 ml/min; Est GFR (Non-African American) 40.3 ml/min; Potassium 3.8 mmol/L (3.5-5.1)
[2023-04-28 06:38] LABS: Partial Thromboplastin Ratio 1.1; Partial Thromboplastin Time 32 Seconds (21-31); Prothrombin Time 11.4 Seconds (9.0-12.0)
[2023-04-28] MEDS: PANTOprazole 40 MG TAB PO SCH (07:26)
[2023-04-28] MEDS: UMECLIDINIUM/VILANTEROL 62.5/25MCG 7 PUFFS/INHALER INH SCH (07:26)
[2023-04-28] MEDS: SOTALOL HCL 80 MG TAB PO SCH (07:26)
--- NOTE | 2023-04-28 07:31 | Hospitalist Progress Note ---
Date of Service April 28, 2023 Assessment & Plan (1) Hematoma of left inguinal region: (2) Anemia: (3) Hematoma of left thigh: (4) Chronic anticoagulation: (5) Coronary artery disease: Plan Today, will check a hgb at noon and if stable, will start low dose heparin and do a repeat hgb at 5pm. Hematoma (left inguinal region)/chronic anticoagulation - Ultrasound 04/25: 12.5 x 11.1 x 20.4 cm left groin fluid collection, likely hematoma, and no DVT - pt had fall a few weeks ago, had been experiencing L groin pain and swelling of groin and L LE for last week - anticoagulation has been held due to anemia secondary to hematoma requiring 2 units PRBCs Symptomatic anemia - Hgb 9 on admission, 1 week ago was 12.1, dropped to 7 and pt now s/p 2 units PRBCs - secondary to large groin hematoma s/p fall - held his warfarin due to anemia Atrial fibrillation - Continue sotalol - Hold warfarin due to groin hematoma as noted above 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, metallic - most recent echo on 04/12/2023 with ejection fraction 55-60% - Hold furosemide, Mg-oxide, spironolactone, as BPs have been soft Elevated troponin - Troponin initially 68.3 --> 71.9 --> 68.0, - likely secondary to demand ischemia in setting of significant bleed with large drop in hgb COPD - Hospitalized from 04/09-04/18/2023 for COPD exacerbation - Anoro Ellipta added at that time, continue - Continue albuterol nebulizer 4 times daily as needed Full code DVT proph: warfarin held for bleeding Admission and Anticipated Discharge Date Admission Date: April 25, 2023 Supervising Physician Co-Signing Physician Notes I personally examined the patient and verified all talavera points of history and exam, discussed case, and agree with decision making with Dr Kurtz A little delirious. No new issues have been identified. Updated to the best my ability. Vitals noted, in general he is somewhat sleepy but does not appear to be in distress. HEENT normocephalic atraumatic mucous membranes moist. Breathing unlaboredhe is may be mildly tachypneic when he is awake, but this actually slows when he sleeps. No accessory muscle use good effort. Skin shows no rashes no pallor or icterus. Left thigh a spontaneous hematoma with acute blood loss anemiain the context of chronic anticoagulation for a mitral valve replacementIn the acute context of having required bridging anticoagulation with Lovenox due to a subtherapeutic INR. unfortunately his hemoglobin still continued to trend down, and his symptoms from acute blood loss anemia recurred (lightheadedness) and therefore anticoagulation was reversed and 1 unit packed red cells ordered 04/26. 2 additional units given on 04/27. Transiently had acute diastolic failure -this was treated with Lasix and appears to have been temporized. Given that his hemoglobin is now stable, and his indication for chronic anticoagulation has a high degree of acuity (mechanical mitral valve) we will start heparin drip low- dose no bolus today and follow his hemoglobin closely. Depending on his ongoing stability, may be able to start Coumadin as soon as tomorrow. Given that his spontaneous bleed happened during bridging therapy, he/his /myself all agree that it seems necessary to be monitoring him in the hospital until he is therapeutic on Coumadin alone prior to discharge. They are aware that unfortunately this will likely lead to a fairly prolonged hospital stay well into next week. Deliriumprobably mild metabolic encephalopathy due to blood loss/fluid shifting as well as environmental due to prolonged hospital stay. Leukocytosis likely demargination, no overt signs or symptoms of infection, continue to follow both his white count and his overall clinical picture. Subjective Pt is a 87 yo male who presents to the hospital on 04/25/23 for groin hematoma. Today, pt states that he feels a bit unlike himself, but states he has a hard time explaining what that really means. On further questioning, he states he feels overall better than yesterday but still feels pretty lousy overall and although the SOB has improved, he is still SOB this morning. He was seen after his breathing treatments and he states they helped a lot. Nursing staff noted that he was pretty SOb this morning but also note that he looks better after the breathing treatment. No acute distress, but he appears fatigued today. Review of Systems Review of Systems: Constitutional: denies fever, chills, Cardio: denies chest pain, palpitations Resp: + shortness of breath, no cough GI: denies abdominal pain, nausea, vomiting, Physical Exam Physical Exam: General:Alert and oriented, no acute distress, HEENT: Normocephalic, moist oral mucosa, Cardio: Regular rate and rhythm, Resp:Fine crackles in lung bases with some faint wheezing GI: Soft and nontender, nondistended, bowel sounds active Ext: L leg pitting edema noted, R leg without edema Skin: Warm, dry, Psych: Mood-affect congruence. Results & Data Results & Data Vital Signs (Past 12 Hours) Vital Signs Temp Pulse Pulse Resp BP BP BP 04/28/23 02:44 36.7 C 69 32 H 147/69 H 04/27/23 23:22 36.6 C 73 21 127/71 04/27/23 22:37 36.7 C 66 34 H 112/54 L 04/27/23 22:01 36.4 C 74 34 H 117/70 04/27/23 22:00 70 04/27/23 21:59 67 04/27/23 21:47 04/27/23 21:01 36.6 C 69 21 118/64 04/27/23 20:31 36.8 C 71 30 H 112/63 04/27/23 20:16 37.0 C 64 30 H 109/62 04/27/23 20:13 37.1 C 68 30 H 108/61 04/27/23 20:11 37.1 C 71 30 H 108/61 04/27/23 19:55 37.8 C H 72 32 H 119/63 Pulse Ox O2 Del Method 04/28/23 02:44 95 Room Air 04/27/23 23:22 94 Room Air 04/27/23 22:37 95 04/27/23 22:01 92 04/27/23 22:00 04/27/23 21:59 04/27/23 21:47 Room Air 04/27/23 21:01 94 04/27/23 20:31 95 04/27/23 20:16 95 04/27/23 20:13 94 Room Air 04/27/23 20:11 94 04/27/23 19:55 95 Resident Activity Tracking Resident Involvement: Resident Care Provided Care Provided: Adult Hospital Medicine (2) Anemia Anemia type: unspecified type Qualified Code(s): D64.9 - Anemia, unspecified (3) Hematoma of left thigh Encounter type: initial encounter Qualified Code(s): S70.12XA - Contusion of left thigh, initial encounter
[2023-04-28] MEDS: ALBUT/IPRATROP 3MG/0.5MG NEB 3 ML VIAL NEB PRN ×3 (07:44→14:27)
[2023-04-28] MEDS: ACETAMINOPHEN 325 MG TAB PO PRN ×2 (09:39→15:59)
[2023-04-28 11:08] LABS: Magnesium 1.9 mg/dl (1.7-2.4); Phosphorus 3.5 mg/dl (2.5-4.9)
[2023-04-28] MEDS ORDERED: Heparin IV Adult Wt-Based Low-Dose *NO* INITIAL Bolus Protocol IV STA (12:23)
--- NOTE | 2023-04-28 12:59 | Ultrasound Report ---
RIGHT LOWER EXTREMITY VENOUS DOPPLER HISTORY: Right calf pain. Check for DVT, has calf pain COMPARISON STUDY: None. FINDINGS: There is normal compressibility, flow, and augmentation within the right lower extremity de ep venous system. Popliteal cyst measuring 41 x 20 x 7 mm. IMPRESSION: No DVT within the right lower extremity ACT 112: Negative or not required by law. Electronically signed by: Andrea Sahu M.D. 04/28/2023 12:57 PM
[2023-04-28] MEDS: HEPARIN SODIUM/DEXTROSE 25,000 UNITS/500 ML BAG IV SCH (14:16)
--- NOTE | 2023-04-28 15:12 | Billing Data ---
Date of Service April 28, 2023 Coding Level of Care Code 17862 SUB INP/OBS CARE
[2023-04-28 17:09] LABS: Hemoglobin 9.6 g/dl (14.0-18.0)
[2023-04-28 21:42] LABS: ANTI-Xa, UFH(UnfractionatedHep < 0.10 IU/ml (0.3-0.7)
[2023-04-28] MEDS ORDERED: HEPARIN IV BOLUS 4,500 UNITS in SYRINGE 0 ML IV ONE (22:45)
[2023-04-29] MEDS: ALBUT/IPRATROP 3MG/0.5MG NEB 3 ML VIAL NEB PRN ×4 (04:00→15:01)
[2023-04-29 05:37] LABS: Basophils # (auto) 0.02 K/uL (0.00-0.20); Basophils % (auto) 0.1 %; Eosinophils # (auto) 0.23 K/uL (0.00-0.50); Eosinophils % (auto) 1.5 %; Hematocrit (blood only) 27.2 % (42.0-52.0); Hemoglobin 9.4 g/dl (14.0-18.0); Immature Granulocytes # (auto) 0.11 K/uL (0.01-0.20); Immature Granulocytes % (auto) 0.7 %; Lymphocytes # (auto) 1.16 K/uL (1.20-3.40); Lymphocytes % (auto) 7.7 %; Mean Corpuscular Hemoglobin 30.3 pg (25.0-34.0); Mean Corpuscular Hgb Conc 34.6 g/dL (32.0-36.0); Mean Corpuscular Volume 87.7 fL (80.0-100.0); Mean Platelet Volume 10.5 fL (9.4-12.4); Monocytes # (auto) 1.98 K/uL (0.11-0.59); Monocytes % (auto) 13.1 %; Neutrophils # (auto) 11.61 K/uL (1.40-6.50); Neutrophils % (auto) 76.9 %; Platelet Count 213 K/uL (130-400); RDW Coefficient of Variation 17.4 % (11.5-14.5); RDW Standard Deviation 53.9 fL (36.4-46.3); White Blood Count 15.11 K/ul (4.8-10.8)
[2023-04-29 05:43] LABS: Albumin Globulin Ratio 0.8 (0.9-2); Albumin Level 2.8 gm/dl (3.4-5.0); BUN Creatinine Ratio 25.6 (10-20); Bilirubin,Total 1.3 mg/dl (0.2-1.0); Calcium 8.1 mg/dl (8.6-10.3); Creatinine Clr Calc Pharmacy 41.3 ml/min; Est GFR (African American) 45.9 ml/min; Est GFR (Non-African American) 39.6 ml/min; Globulin 3.3 gm/dl (2.5-4.0); Potassium 3.7 mmol/L (3.5-5.1); Total Protein 6.1 gm/dl (6.0-8.3)
[2023-04-29 06:46] LABS: ANTI-Xa, UFH(UnfractionatedHep 0.27 IU/ml (0.3-0.7)
--- NOTE | 2023-04-29 07:02 | Hospitalist Progress Note ---
Date of Service April 29, 2023 Assessment & Plan (1) Hematoma of left inguinal region: (2) Anemia: (3) Hematoma of left thigh: (4) Chronic anticoagulation: (5) Coronary artery disease: Plan Pt is a 87 yo male who presents to the hospital on 04/25/23 for groin hematoma. Today, hemoglobin stable, continuing heparin. Will do daily PT/INR. Plan to start warfarin 3mg daily today. Will check a hemoglobin at 5pm today. Hematoma (left inguinal region)/chronic anticoagulation - Ultrasound 04/25: 12.5 x 11.1 x 20.4 cm left groin fluid collection, likely hematoma, and no DVT - pt had fall a few weeks ago, had been experiencing L groin pain and swelling of groin and L LE for last week - anticoagulation has been held due to anemia secondary to hematoma requiring 2 units PRBCs Symptomatic anemia - Hgb 9 on admission, 1 week ago was 12.1, dropped to 7 and pt now s/p 2 units PRBCs - secondary to large groin hematoma s/p fall - held his warfarin due to anemia Atrial fibrillation - Continue sotalol - Hold warfarin due to groin hematoma as noted above 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, metallic - most recent echo on 04/12/2023 with ejection fraction 55-60% - Hold furosemide, Mg-oxide, spironolactone, as BPs have been soft Elevated troponin - Troponin initially 68.3 --> 71.9 --> 68.0, - likely secondary to demand ischemia in setting of significant bleed with large drop in hgb COPD - Hospitalized from 04/09-04/18/2023 for COPD exacerbation - Anoro Ellipta added at that time, continue - Continue albuterol nebulizer 4 times daily as needed Full code DVT proph: warfarin held for bleeding Admission and Anticipated Discharge Date Admission Date: April 25, 2023 Supervising Physician Co-Signing Physician Notes I personally examined the patient and verified all talavera points of history and exam, discussed case, and agree with decision making with Dr Kurtz no new issues noted. Vitals noted, in general he sleeping but does not appear to be in distress. HEENT normocephalic atraumatic mucous membranes moist. Breathing unlabored. No accessory muscle use good effort. Skin shows no rashes no pallor or icterus. Left thigh a spontaneous hematoma with acute blood loss anemiain the context of chronic anticoagulation for a mitral valve replacementIn the acute context of having required bridging anticoagulation with Lovenox due to a subtherapeutic INR. unfortunately his hemoglobin still continued to trend down, and his symptoms from acute blood loss anemia recurred (lightheadedness) and therefore anticoagulation was reversed and 1 unit packed red cells ordered 04/26. 2 additional units given on 04/27. Transiently had acute diastolic failure -this was treated with Lasix and appears to have been temporized. Given that his hemoglobin is now stable, and his indication for chronic anticoagulation has a high degree of acuity (mechanical mitral valve) we will start heparin drip low- dose no bolus today and follow his hemoglobin closely. showing enough stability to start coumadin today. Given that his spontaneous bleed happened during bridging therapy, he/his /myself all agree that it seems necessary to be monitoring him in the hospital until he is therapeutic on Coumadin alone prior to discharge. They are aware that unfortunately this will likely lead to a fairly prolonged hospital stay well into next week. Deliriumprobably mild metabolic encephalopathy due to blood loss/fluid shifting as well as environmental due to prolonged hospital stay. Leukocytosis likely demargination, no overt signs or symptoms of infection, continue to follow both his white count and his overall clinical picture. elevated troponin represents mild demand ischemia in the setting of acute blood loss anemia that eventually required 3 units PRBCs Subjective Pt is a 87 yo male who presents to the hospital on 04/25/23 for groin hematoma. Today, pt states he is feeling much better than yesterday. He states he feels like he has more energy and his breathing is much better than it was before. Tolerating meals without issue. No questions or complaints at this time. Review of Systems Review of Systems: Cardio: denies chest pain, palpitations GI: denies abdominal pain, nausea, vomiting, Physical Exam Physical Exam: General:Alert and oriented, no acute distress, HEENT: Normocephalic, moist oral mucosa, Cardio: Regular rate and rhythm, Resp:Clear to auscultation GI: Soft and nontender, nondistended, bowel sounds active Ext: L leg pitting edema noted, R leg without edema Skin: Warm, dry, Psych: Mood-affect congruence. Results & Data Results & Data Vital Signs (Past 12 Hours) Vital Signs Temp Pulse Pulse Resp BP Pulse Ox O2 Del Method 04/29/23 04:01 74 18 93 Room Air 04/29/23 03:27 36.4 C L 81 25 H 123/65 94 Room Air 04/28/23 23:15 36.3 C L 77 32 H 134/72 95 Room Air 04/28/23 22:37 Room Air 04/28/23 22:00 70 04/28/23 19:21 37.5 C 63 22 125/67 93 Room Air Resident Activity Tracking Resident Involvement: Resident Care Provided Care Provided: Adult Hospital Medicine (2) Anemia Anemia type: unspecified type Qualified Code(s): D64.9 - Anemia, unspecified (3) Hematoma of left thigh Encounter type: initial encounter Qualified Code(s): S70.12XA - Contusion of left thigh, initial encounter
[2023-04-29] MEDS: SOTALOL HCL 80 MG TAB PO SCH (07:49)
[2023-04-29] MEDS: PANTOprazole 40 MG TAB PO SCH (07:49)
[2023-04-29] MEDS: UMECLIDINIUM/VILANTEROL 62.5/25MCG 7 PUFFS/INHALER INH SCH (07:50)
[2023-04-29] MEDS: HEPARIN SODIUM/DEXTROSE 25,000 UNITS/500 ML BAG IV SCH ×2 (11:22→14:50)
[2023-04-29] MEDS ORDERED: WARFARIN SOD 3 MG TAB PO SCH (13:00)
[2023-04-29 14:01] LABS: ANTI-Xa, UFH(UnfractionatedHep 0.22 IU/ml (0.3-0.7)
--- NOTE | 2023-04-29 17:40 | Billing Data ---
Date of Service April 29, 2023 Coding Level of Care Code 87179 SUB INP/OBS CARE MIN
[2023-04-29 17:46] LABS: Hematocrit (blood only) 28.2 % (42.0-52.0); Hemoglobin 9.3 g/dl (14.0-18.0)
[2023-04-29] MEDS: ACETAMINOPHEN 325 MG TAB PO PRN (20:29)
[2023-04-29 20:55] LABS: ANTI-Xa, UFH(UnfractionatedHep 0.25 IU/ml (0.3-0.7)
[2023-04-30 03:43] LABS: Basophils # (auto) 0.03 K/uL (0.00-0.20); Basophils % (auto) 0.2 %; Eosinophils # (auto) 0.25 K/uL (0.00-0.50); Hematocrit (blood only) 26.8 % (42.0-52.0); Hemoglobin 9.2 g/dl (14.0-18.0); Immature Granulocytes # (auto) 0.06 K/uL (0.01-0.20); Immature Granulocytes % (auto) 0.5 %; Lymphocytes % (auto) 8.6 %; Mean Corpuscular Hemoglobin 30.5 pg (25.0-34.0); Mean Corpuscular Hgb Conc 34.3 g/dL (32.0-36.0); Mean Corpuscular Volume 88.7 fL (80.0-100.0); Monocytes # (auto) 1.77 K/uL (0.11-0.59); Monocytes % (auto) 13.9 %; Neutrophils # (auto) 9.55 K/uL (1.40-6.50); Neutrophils % (auto) 74.8 %; Platelet Count 217 K/uL (130-400); RDW Coefficient of Variation 17.2 % (11.5-14.5); RDW Standard Deviation 54.4 fL (36.4-46.3); Red Blood Count 3.02 M/uL (4.70-6.10); White Blood Count 12.76 K/ul (4.8-10.8)
[2023-04-30 04:00] LABS: Albumin Globulin Ratio 0.8 (0.9-2); Albumin Level 2.8 gm/dl (3.4-5.0); BUN Creatinine Ratio 21.6 (10-20); Bilirubin,Total 1.2 mg/dl (0.2-1.0); Calcium 8.1 mg/dl (8.6-10.3); Creatinine Clr Calc Pharmacy 37.7 ml/min; Est GFR (African American) 41.1 ml/min; Est GFR (Non-African American) 35.5 ml/min; Globulin 3.3 gm/dl (2.5-4.0); Potassium 3.7 mmol/L (3.5-5.1); Total Protein 6.1 gm/dl (6.0-8.3)
[2023-04-30 04:11] LABS: ANTI-Xa, UFH(UnfractionatedHep 0.34 IU/ml (0.3-0.7); INR 1.1 (0.9-1.1); Prothrombin Time 11.6 Seconds (9.0-12.0)
[2023-04-30] MEDS: HEPARIN SODIUM/DEXTROSE 25,000 UNITS/500 ML BAG IV SCH ×2 (04:50→21:49)
[2023-04-30] MEDS: SOTALOL HCL 80 MG TAB PO SCH (08:47)
[2023-04-30] MEDS: PANTOprazole 40 MG TAB PO SCH (08:48)
[2023-04-30] MEDS: UMECLIDINIUM/VILANTEROL 62.5/25MCG 7 PUFFS/INHALER INH SCH (08:48)
[2023-04-30] MEDS: ALBUT/IPRATROP 3MG/0.5MG NEB 3 ML VIAL NEB PRN ×2 (11:06→15:17)
--- NOTE | 2023-04-30 13:43 | Hospitalist Progress Note ---
Date of Service April 30, 2023 Assessment & Plan (1) Hematoma of left inguinal region: (2) Anemia: (3) Hematoma of left thigh: (4) Chronic anticoagulation: (5) Coronary artery disease: Plan Pt is a 87 yo male who presents to the hospital on 04/25/23 for groin hematoma and symptomatic anemia in the setting of chronic anticoagulation with Warfarin. Hematoma (left inguinal region) / chronic anticoagulation - Ultrasound 04/25: 12.5 x 11.1 x 20.4 cm left groin fluid collection, likely hematoma, and no DVT - pt had fall a few weeks ago, had been experiencing L groin pain and swelling of groin and L LE for last week - presented with symptomatic anemia requiring transfusion of 2 units of PRBC (Hgb of 7 on admission) today's Hgb stable at 9.2, although patient endorses lightheadedness - anticoagulation with warfarin re-started yesterday (3mg). Will increase to 5mg today. bridge with Heparin INR today 1.1 daily CBC and PT/INR Symptomatic anemia - Hgb 9.2 today (7 on admission); s/p 2 units of PRBC - secondary to large groin hematoma s/p fall - Restarted Warfarin, increase to 5mg today. 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, metallic - most recent echo on 04/12/2023 with ejection fraction 55-60% - Hold furosemide, Mg-oxide, spironolactone, as BPs have been soft Elevated troponin - Troponin initially 68.3 --> 71.9 --> 68.0, - likely secondary to demand ischemia in setting of significant bleed with large drop in hgb COPD - Hospitalized from 04/09-04/18/2023 for COPD exacerbation - Anoro Ellipta added at that time, continue - Continue albuterol nebulizer 4 times daily as needed Full code DVT proph: Warfarin Admission and Anticipated Discharge Date Admission Date: April 25, 2023 Supervising Physician Co-Signing Physician Notes Resident Physician Supervision Note: I independently interviewed and examined the patient and verified the talavera histo ry and physical, reviewed labs and image studies and agree with resident findings and care plan. no new issues noted. Vitals noted. Heart - RRR, lungs - CTA. Left thigh generalized swelling. Left thigh a spontaneous hematoma with acute blood loss anemiain the context of chronic anticoagulation for a mitral valve replacementIn the acute context of having required bridging anticoagulation with Lovenox due to a subtherapeutic INR. -s/p 3 units PRBC - 04/26 and 04/27. -h/h stable. Acute diastolic failure - treated with Lasix - resolved. Chronic anticoagulation for mechanical mitral valve -Continue heparin drip low-dose. Started warfarin 04/29 - 3mgs. -INR 1.1. Warfarin 5mgs - 04/30 -Will keep inpatient during current bridging considering bleed from previous bridging. Deliriumprobably mild metabolic encephalopathy due to blood loss/fluid shifting as well as environmental due to prolonged hospital stay. Leukocytosis likely demargination. no concern of infection. elevated troponin represents mild demand ischemia in the setting of acute blood loss anemia that eventually required 3 units PRBCs Subjective Pt is a 87 yo male who presents to the hospital on 04/25/23 for groin hematoma. Today, pt states he is feeling similar to yesterday (not better or worse). He refers feeling persistent tenderness in his left groin area where the hematoma is located. Has not noticed it worsening/expanding. Not feeling SOB but noted to have shallow breathing. Nurse indicates the patient has intermittent episodes of shallow breathing but has been saturating well and appears to be better compared to previous days. Patient denies fevers, chills, chest pain, malaise, or any other symptom. Review of Systems Review of Systems: As per HPI. Physical Exam Physical Exam: General:Alert and oriented, no acute distress HEENT: Normocephalic, moist oral mucosa Cardio: Regular rate and rhythm Resp:Clear to auscultation, shallow breathing, no respiratory distress GI: Soft and nontender, nondistended, bowel sounds active Ext: L leg pitting edema noted, Hematoma noted in inner thigh near groin area of left extremity, R leg without edema Psych: Mood-affect congruence. Results & Data Results & Data Vital Signs (Past 12 Hours) Vital Signs Temp Pulse Pulse Resp BP Pulse Ox O2 Del Method 04/30/23 12:20 36.6 C 69 18 129/67 94 Room Air 04/30/23 11:07 60 18 94 Room Air 04/30/23 08:00 81 04/30/23 07:38 37.2 C 77 18 115/58 L 96 Room Air 04/30/23 03:17 36.7 C 79 26 H 127/58 L 93 Room Air Resident Activity Tracking Resident Involvement: Resident Care Provided Care Provided: Adult Hospital Medicine (2) Anemia Anemia type: unspecified type Qualified Code(s): D64.9 - Anemia, unspecified (3) Hematoma of left thigh Encounter type: initial encounter Qualified Code(s): S70.12XA - Contusion of left thigh, initial encounter
[2023-04-30] MEDS ORDERED: WARFARIN SOD 5 MG TAB PO SCH (16:00)
[2023-05-01] MEDS: ACETAMINOPHEN 325 MG TAB PO PRN ×2 (02:56→08:27)
[2023-05-01 06:22] LABS: Basophils # (auto) 0.03 K/uL (0.00-0.20); Basophils % (auto) 0.3 %; Eosinophils # (auto) 0.28 K/uL (0.00-0.50); Eosinophils % (auto) 2.7 %; Hematocrit (blood only) 27.6 % (42.0-52.0); Immature Granulocytes # (auto) 0.06 K/uL (0.01-0.20); Immature Granulocytes % (auto) 0.6 %; Lymphocytes # (auto) 1.01 K/uL (1.20-3.40); Lymphocytes % (auto) 9.9 %; Mean Corpuscular Hemoglobin 29.7 pg (25.0-34.0); Mean Corpuscular Hgb Conc 32.6 g/dL (32.0-36.0); Mean Corpuscular Volume 91.1 fL (80.0-100.0); Mean Platelet Volume 10.1 fL (9.4-12.4); Monocytes % (auto) 14.6 %; Neutrophils # (auto) 7.37 K/uL (1.40-6.50); Neutrophils % (auto) 71.9 %; Platelet Count 227 K/uL (130-400); RDW Coefficient of Variation 16.6 % (11.5-14.5); RDW Standard Deviation 54.1 fL (36.4-46.3); Red Blood Count 3.03 M/uL (4.70-6.10); White Blood Count 10.25 K/ul (4.8-10.8)
[2023-05-01 06:28] LABS: Albumin Globulin Ratio 0.8 (0.9-2); Albumin Level 2.7 gm/dl (3.4-5.0); BUN Creatinine Ratio 21.2 (10-20); Bilirubin,Total 1.1 mg/dl (0.2-1.0); Calcium 8.3 mg/dl (8.6-10.3); Creatinine Clr Calc Pharmacy 38.8 ml/min; Est GFR (African American) 42.9 ml/min; Globulin 3.4 gm/dl (2.5-4.0); Potassium 3.7 mmol/L (3.5-5.1); Total Protein 6.1 gm/dl (6.0-8.3)
[2023-05-01 07:41] LABS: ANTI-Xa, UFH(UnfractionatedHep 0.36 IU/ml (0.3-0.7); INR 1.1 (0.9-1.1); Prothrombin Time 11.8 Seconds (9.0-12.0)
[2023-05-01] MEDS: PANTOprazole 40 MG TAB PO SCH (08:22)
[2023-05-01] MEDS: UMECLIDINIUM/VILANTEROL 62.5/25MCG 7 PUFFS/INHALER INH SCH (08:22)
[2023-05-01] MEDS: SOTALOL HCL 80 MG TAB PO SCH (08:22)
--- NOTE | 2023-05-01 12:56 | Hospitalist Progress Note ---
Date of Service May 01, 2023 Assessment & Plan (1) Hematoma of left inguinal region: (2) Anemia: (3) Hematoma of left thigh: (4) Chronic anticoagulation: (5) Coronary artery disease: Plan Pt is a 87 yo male who presents to the hospital on 04/25/23 for groin hematoma and symptomatic anemia in the setting of chronic anticoagulation with Warfarin. Hematoma (left inguinal region) / chronic anticoagulation - Ultrasound 04/25: 12.5 x 11.1 x 20.4 cm left groin fluid collection, likely hematoma, and no DVT - pt had fall a few weeks ago, had been experiencing L groin pain and swelling of groin and L LE for last week - presented with symptomatic anemia requiring transfusion of 2 units of PRBC (Hgb of 7 on admission) today's Hgb stable at 9, although patient endorses lightheadedness - anticoagulation with warfarin increased yesterday to 5mg. INR remains at 1.1. After evaluating patient's home Warfarin regimen, and discussing with Dr. Chau of the anticoagulation clinic, will increase Warfarin to 8mg and change to 6mg tomorrow. It is anticipated that with this change, patient should reach target INR by the end of this week. bridge with Heparin daily CBC and PT/INR Symptomatic anemia - Hgb 9 today (7 on admission); s/p 3 units of PRBC - secondary to large groin hematoma s/p fall Urinary Incontinence - Patient's incontinence may be related to confused state combined with weakness that impedes him from standing and using bathroom or bedside commode, but overflow incontinence vs other types of incontinence may be considered. PT attempted to stand him, but put him back on his bed due to weakness that made standing difficult. - Bladder scan (post-void) showing ~100mL. - Condom Jane placed today to prevent possible skin breakdown from prolonged contact with urine. If this fails to stay, would favor frequent padding changes rather than jane catheter due to risk of injury and bleeding. - Will monitor. 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, metallic - most recent echo on 04/12/2023 with ejection fraction 55-60% - Hold furosemide, Mg-oxide, spironolactone, as BPs have been soft Elevated troponin - Troponin initially 68.3 --> 71.9 --> 68.0, - likely secondary to demand ischemia in setting of significant bleed with large drop in hgb COPD - Hospitalized from 04/09-04/18/2023 for COPD exacerbation - Anoro Ellipta added at that time, continue - Continue albuterol nebulizer 4 times daily as needed Full code DVT proph: Warfarin Admission and Anticipated Discharge Date Admission Date: April 25, 2023 Supervising Physician Co-Signing Physician Notes Resident Physician Supervision Note: I independently interviewed and examined the patient and verified the talavera history and physical, reviewed labs and image studies and agree with resident findings and care plan. no new issues noted. Vitals noted. Heart - RRR, lungs - CTA. Left thigh generalized swelling. Left thigh a spontaneous hematoma with acute blood loss anemiain the context of chronic anticoagulation for a mitral valve replacementIn the acute context of having required bridging anticoagulation with Lovenox due to a subtherapeutic INR. -s/p 3 units PRBC - 04/26 and 04/27. -h/h stable. Acute diastolic failure - treated with Lasix - resolved. Chronic anticoagulation for mechanical mitral valve -Continue heparin drip low-dose. Started warfarin 04/29 -INR 1.1. Warfarin 8mgs - 05/01 -Will keep inpatient during current bridging considering bleed from previous bridging. Urinary incontinence - post void bladder scan - 100ml. condom catheter placed. Severe deconditioning - PT/OT Subjective Pt is a 87 yo male who presents to the hospital on 04/25/23 for groin hematoma. Today, pt states he is feeling similar to yesterday (not better or worse). Patient appears to be slightly more confused today. Shallow breathing today as well which patient states is due to him being uncomfortably positioned on his bed, but did not want to be moved. Nurse states he has been incontinent of urine. They attempted to use a condom catheter, but it has not stayed on each time. They have also been monitoring him more frequently due to his mental status and his urine incontinence. Patient denies fevers, chills, chest pain, malaise, or any other symptom. Review of Systems Review of Systems: As per HPI. Physical Exam Physical Exam: General:Alert and awake, confused, no acute distress HEENT: Normocephalic, moist oral mucosa Cardio: Regular rate and rhythm Resp:Clear to auscultation, shallow breathing, no respiratory distress GI: Soft and nontender, nondistended, bowel sounds active Ext: L leg pitting edema noted, Hematoma noted in inner thigh near groin area of left extremity, R leg without edema Results & Data Results & Data Vital Signs (Past 12 Hours) Vital Signs Temp Pulse Resp BP BP Pulse Ox O2 Del Method 05/01/23 11:02 36.3 C L 68 24 112/67 95 Room Air 05/01/23 08:00 Room Air 05/01/23 07:35 36.4 C L 70 22 128/73 94 Room Air 05/01/23 03:00 36.7 C 71 18 110/65 94 Room Air O2 Flow Rate 05/01/23 11:02 05/01/23 08:00 0 05/01/23 07:35 05/01/23 03:00 Resident Activity Tracking Resident Involvement: Resident Care Provided Care Provided: Adult Hospital Medicine (2) Anemia Anemia type: unspecified type Qualified Code(s): D64.9 - Anemia, unspecified (3) Hematoma of left thigh Encounter type: initial encounter Qualified Code(s): S70.12XA - Contusion of left thigh, initial encounter
[2023-05-01] MEDS: HEPARIN SODIUM/DEXTROSE 25,000 UNITS/500 ML BAG IV SCH (14:03)
[2023-05-01] MEDS ORDERED: WARFARIN SOD 7.5 MG TAB PO SCH (16:00)
[2023-05-01] MEDS: WARFARIN SOD 4 MG TAB PO SCH (16:22)
[2023-05-02] MEDS: HEPARIN SODIUM/DEXTROSE 25,000 UNITS/500 ML BAG IV SCH ×2 (05:20→20:58)
[2023-05-02 06:19] LABS: Basophils # (auto) 0.02 K/uL (0.00-0.20); Basophils % (auto) 0.2 %; Eosinophils # (auto) 0.26 K/uL (0.00-0.50); Eosinophils % (auto) 2.8 %; Hemoglobin 8.9 g/dl (14.0-18.0); Immature Granulocytes # (auto) 0.06 K/uL (0.01-0.20); Immature Granulocytes % (auto) 0.6 %; Lymphocytes # (auto) 0.98 K/uL (1.20-3.40); Lymphocytes % (auto) 10.4 %; Mean Corpuscular Hemoglobin 29.6 pg (25.0-34.0); Mean Corpuscular Volume 89.7 fL (80.0-100.0); Monocytes # (auto) 1.19 K/uL (0.11-0.59); Monocytes % (auto) 12.6 %; Neutrophils # (auto) 6.94 K/uL (1.40-6.50); Neutrophils % (auto) 73.4 %; Platelet Count 230 K/uL (130-400); RDW Coefficient of Variation 16.3 % (11.5-14.5); RDW Standard Deviation 53.1 fL (36.4-46.3); Red Blood Count 3.01 M/uL (4.70-6.10); White Blood Count 9.45 K/ul (4.8-10.8)
[2023-05-02 06:37] LABS: Albumin Globulin Ratio 0.8 (0.9-2); Albumin Level 2.7 gm/dl (3.4-5.0); BUN Creatinine Ratio 20.8 (10-20); Bilirubin,Total 0.9 mg/dl (0.2-1.0); Calcium 8.3 mg/dl (8.6-10.3); Creatinine Clr Calc Pharmacy 40.2 ml/min; Est GFR (African American) 44.9 ml/min; Est GFR (Non-African American) 38.7 ml/min; Globulin 3.4 gm/dl (2.5-4.0); Potassium 3.9 mmol/L (3.5-5.1); Total Protein 6.1 gm/dl (6.0-8.3)
[2023-05-02 07:04] LABS: ANTI-Xa, UFH(UnfractionatedHep 0.26 IU/ml (0.3-0.7); INR 1.2 (0.9-1.1); Prothrombin Time 12.6 Seconds (9.0-12.0)
[2023-05-02] MEDS: UMECLIDINIUM/VILANTEROL 62.5/25MCG 7 PUFFS/INHALER INH SCH (08:37)
[2023-05-02] MEDS: SOTALOL HCL 80 MG TAB PO SCH (08:37)
[2023-05-02] MEDS: PANTOprazole 40 MG TAB PO SCH (08:37)
[2023-05-02 13:44] LABS: ANTI-Xa, UFH(UnfractionatedHep 0.32 IU/ml (0.3-0.7)
--- NOTE | 2023-05-02 14:18 | Hospitalist Progress Note ---
Date of Service May 02, 2023 Assessment & Plan (1) Hematoma of left inguinal region: (2) Anemia: (3) Hematoma of left thigh: (4) Chronic anticoagulation: (5) Coronary artery disease: Plan Pt is a 87 yo male who presents to the hospital on 04/25/23 for groin hematoma and symptomatic anemia in the setting of chronic anticoagulation with Warfarin. Patient expressing wish to stand today but needs assistance due to weakness. Nurses and PT to help him stand and sit on his bedside chair. Hematoma (left inguinal region) / chronic anticoagulation - Ultrasound 04/25: 12.5 x 11.1 x 20.4 cm left groin fluid collection, likely hematoma, and no DVT - pt had fall a few weeks ago, had been experiencing L groin pain and swelling of groin and L LE for last week - presented with symptomatic anemia requiring transfusion of 2 units of PRBC (Hgb of 7 on admission) today's Hgb stable at 8.9 - anticoagulation with warfarin increased yesterday to 8mg. INR remains at 1.2. Will maintain current dose. bridge with Heparin daily CBC and PT/INR Symptomatic anemia - Hgb 8.9 today (7 on admission); s/p 3 units of PRBC - secondary to large groin hematoma s/p fall Urinary Incontinence - Patient's incontinence may be related to confused state combined with weakness that impedes him from standing and using bathroom or bedside commode, but overflow incontinence vs other types of incontinence may be considered. PT attempted to stand him, but put him back on his bed due to weakness that made standing difficult. - Condom Spears not able to stay on. Will change pads frequently to prevent prolonged contact with urine and skin. - Will monitor. 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, metallic - most recent echo on 04/12/2023 with ejection fraction 55-60% - Hold furosemide, Mg-oxide, spironolactone, as BPs have been soft Elevated troponin - Troponin initially 68.3 --> 71.9 --> 68.0, - likely secondary to demand ischemia in setting of significant bleed with large drop in hgb COPD - Hospitalized from 04/09-04/18/2023 for COPD exacerbation - Anoro Ellipta added at that time, continue - Continue albuterol nebulizer 4 times daily as needed Full code DVT proph: Warfarin Admission and Anticipated Discharge Date Admission Date: April 25, 2023 Supervising Physician Co-Signing Physician Notes Resident Physician Supervision Note: I independently interviewed and examined the patient and verified the talavera history and physical, reviewed labs and image studies and agree with resident findings and care plan. no new issues noted. Vitals noted. More alert today. Heart - RRR, lungs - CTA. Left thigh generalized swelling. Left thigh a spontaneous hematoma with acute blood loss anemiain the context of chronic anticoagulation for a mitral valve replacementIn the acute context of having required bridging anticoagulation with Lovenox due to a subtherapeutic INR. -s/p 3 units PRBC - 04/26 and 04/27. -h/h stable. Chronic anticoagulation for mechanical mitral valve -Continue heparin drip low-dose. Started warfarin 04/29 -INR 1.2. Warfarin 8mgs - 05/02 -Will keep inpatient during current bridging considering bleed from previous bridging. Urinary incontinence - post void bladder scan - 100ml. frequent pad changes. not able to have condom catheter. Acute diastolic failure - treated with Lasix - resolved. Severe deconditioning - PT/OT Subjective Pt is a 87 yo male who presents to the hospital on 04/25/23 for groin hematoma. Today, patient seems more awake and alert, although some confusion still present. Patient endorses left leg pain that has been constant these last few days. Would like to stand today. Denies chest pain, SOB, fevers, chills, malaise, or other symptoms. Review of Systems Review of Systems: As per HPI. Physical Exam Physical Exam: General:Alert and awake, confused, no acute distress HEENT: Normocephalic, moist oral mucosa Cardio: Regular rate and rhythm Resp:Clear to auscultation, shallow breathing, no respiratory distress GI: Soft and nontender, nondistended, bowel sounds active Ext: L leg pitting edema noted, Hematoma noted in inner thigh near groin area of left extremity, R leg without edema Results & Data Results & Data Vital Signs (Past 12 Hours) Vital Signs Temp Pulse Pulse Resp BP Pulse Ox O2 Del Method 05/02/23 11:49 36.3 C L 63 18 121/72 96 Room Air 05/02/23 09:00 68 05/02/23 09:00 Room Air 05/02/23 07:12 37.0 C 67 22 123/69 93 Room Air 05/02/23 03:00 36.9 C 70 24 118/70 94 Room Air Resident Activity Tracking Resident Involvement: Resident Care Provided Care Provided: Adult Hospital Medicine (2) Anemia Anemia type: unspecified type Qualified Code(s): D64.9 - Anemia, unspecified (3) Hematoma of left thigh Encounter type: initial encounter Qualified Code(s): S70.12XA - Contusion of left thigh, initial encounter
[2023-05-02] MEDS: WARFARIN SOD 4 MG TAB PO SCH (16:20)
[2023-05-03 05:00] LABS: Basophils # (auto) 0.02 K/uL (0.00-0.20); Basophils % (auto) 0.2 %; Eosinophils # (auto) 0.33 K/uL (0.00-0.50); Eosinophils % (auto) 3.5 %; Hematocrit (blood only) 27.4 % (42.0-52.0); Hemoglobin 9.1 g/dl (14.0-18.0); Immature Granulocytes # (auto) 0.05 K/uL (0.01-0.20); Immature Granulocytes % (auto) 0.5 %; Lymphocytes # (auto) 0.98 K/uL (1.20-3.40); Lymphocytes % (auto) 10.5 %; Mean Corpuscular Hemoglobin 30.3 pg (25.0-34.0); Mean Corpuscular Hgb Conc 33.2 g/dL (32.0-36.0); Mean Corpuscular Volume 91.3 fL (80.0-100.0); Mean Platelet Volume 10.1 fL (9.4-12.4); Monocytes # (auto) 1.11 K/uL (0.11-0.59); Monocytes % (auto) 11.9 %; Neutrophils # (auto) 6.87 K/uL (1.40-6.50); Neutrophils % (auto) 73.4 %; Platelet Count 265 K/uL (130-400); RDW Coefficient of Variation 16.1 % (11.5-14.5); White Blood Count 9.36 K/ul (4.8-10.8)
[2023-05-03 05:08] LABS: Albumin Globulin Ratio 0.8 (0.9-2); Albumin Level 2.7 gm/dl (3.4-5.0); BUN Creatinine Ratio 20.4 (10-20); Bilirubin,Total 0.9 mg/dl (0.2-1.0); Calcium 8.4 mg/dl (8.6-10.3); Creatinine Clr Calc Pharmacy 46.6 ml/min; Est GFR (African American) 53.7 ml/min; Est GFR (Non-African American) 46.4 ml/min; Globulin 3.4 gm/dl (2.5-4.0); Potassium 4.1 mmol/L (3.5-5.1); Total Protein 6.1 gm/dl (6.0-8.3)
[2023-05-03 05:27] LABS: ANTI-Xa, UFH(UnfractionatedHep 0.28 IU/ml (0.3-0.7); INR 1.4 (0.9-1.1); Prothrombin Time 14.6 Seconds (9.0-12.0)
[2023-05-03] MEDS: HEPARIN SODIUM/DEXTROSE 25,000 UNITS/500 ML BAG IV SCH ×3 (07:21→12:22)
[2023-05-03] MEDS: PANTOprazole 40 MG TAB PO SCH (08:12)
[2023-05-03] MEDS: UMECLIDINIUM/VILANTEROL 62.5/25MCG 7 PUFFS/INHALER INH SCH (08:12)
[2023-05-03] MEDS: SOTALOL HCL 80 MG TAB PO SCH (08:12)
[2023-05-03] MEDS: ALBUT/IPRATROP 3MG/0.5MG NEB 3 ML VIAL NEB PRN (10:23)
[2023-05-03 12:35] LABS: ANTI-Xa, UFH(UnfractionatedHep 0.38 IU/ml (0.3-0.7)
--- NOTE | 2023-05-03 15:12 | Hospitalist Progress Note ---
Date of Service May 03, 2023 Assessment & Plan (1) Hematoma of left inguinal region: (2) Anemia: (3) Hematoma of left thigh: (4) Chronic anticoagulation: (5) Coronary artery disease: Plan Pt is a 87 yo male who presents to the hospital on 04/25/23 for groin hematoma and symptomatic anemia in the setting of chronic anticoagulation with Warfarin. Duoneb nebulizer therapy ordered as management of patient's shortness of breath. Will f/u with response. PT also contacted to assist patient in standing. Hematoma (left inguinal region) / chronic anticoagulation - Ultrasound 04/25: 12.5 x 11.1 x 20.4 cm left groin fluid collection, likely hematoma, and no DVT - pt had fall a few weeks ago, had been experiencing L groin pain and swelling of groin and L LE for last week - presented with symptomatic anemia requiring transfusion of 2 units of PRBC (Hgb of 7 on admission) today's Hgb stable at 8.9 - anticoagulation with warfarin increased yesterday to 8mg. INR remains at 1.4. Will change dose to 6mg today. bridge with Heparin daily CBC and PT/INR Symptomatic anemia - Hgb 9.1 today (7 on admission); s/p 3 units of PRBC - secondary to large groin hematoma s/p fall Urinary Incontinence - Patient's incontinence may be related to confused state combined with weakness that impedes him from standing and using bathroom or bedside commode, but overflow incontinence vs other types of incontinence may be considered. PT attempted to stand him, but put him back on his bed due to weakness that made standing difficult. - Condom Spears on today. - Will monitor. 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, metallic - most recent echo on 04/12/2023 with ejection fraction 55-60% - Hold furosemide, Mg-oxide, spironolactone, as BPs have been soft Elevated troponin - Troponin initially 68.3 --> 71.9 --> 68.0, - likely secondary to demand ischemia in setting of significant bleed with large drop in hgb COPD - Hospitalized from 04/09-04/18/2023 for COPD exacerbation - Anoro Ellipta added at that time, continue - Continue albuterol nebulizer 4 times daily as needed Full code DVT proph: Warfarin Admission and Anticipated Discharge Date Admission Date: April 25, 2023 Supervising Physician Co-Signing Physician Notes Resident Physician Supervision Note: I independently interviewed and examined the patient and verified the [place]aver[place] history and physical, reviewed labs and image studies and agree with resident findings and care plan. no new issues noted. Vitals noted. Alert - called on me as I entered the room. Heart - RRR, lungs - clear on my exam. Left thigh generalized swelling. Left thigh a spontaneous hematoma with acute blood loss anemiain the context of chronic anticoagulation for a mitral valve replacementIn the acute context of having required bridging anticoagulation with Lovenox due to a subtherapeutic INR. -s/p 3 units PRBC - 04/26 and 04/27. -h/h stable. Chronic anticoagulation for mechanical mitral valve -Continue heparin drip low-dose. Started warfarin 04/29 -INR 1.4. Warfarin 6mgs - 05/03 -Will keep inpatient during current bridging considering bleed from previous bridging. Urinary incontinence - post void bladder scan - 100ml. frequent pad changes. not able to have condom catheter. Acute diastolic failure - treated with Lasix - resolved. Severe deconditioning - PT/OT. Will be able to go to SNF once INR therapeutic. Subjective Pt is a 87 yo male who presents to the hospital on 04/25/23 for groin hematoma. Today, patient seems more awake and alert, although some confusion still present. Reports feeling fatigued and appears to be SOB at the tie of ev aluation. Denies chest pain, SOB, fevers, chills, malaise, or other symptoms. Review of Systems Review of Systems: As per HPI. Physical Exam Physical Exam: General:Alert and awake, confused, no acute distress HEENT: Normocephalic, moist oral mucosa Cardio: Regular rate and rhythm Resp:Clear to auscultation, shallow breathing, appears dyspneic, no respiratory distress GI: Soft and nontender, nondistended, bowel sounds active Ext: L leg pitting edema noted, Hematoma noted in inner thigh near groin area of left extremity, R leg without edema Results & Data Results & Data Vital Signs (Past 12 Hours) Vital Signs Temp Pulse Pulse Resp BP Pulse Ox O2 Del Method 05/03/23 11:28 36.8 C 64 23 125/71 94 Room Air 05/03/23 10:23 68 18 97 Room Air 05/03/23 09:00 68 05/03/23 09:00 Room Air 05/03/23 07:24 37.5 C 75 23 131/74 95 Room Air 05/03/23 03:21 36.7 C 63 20 133/67 95 Room Air Resident Activity Tracking Resident Involvement: Resident Care Provided Care Provided: Adult Hospital Medicine (2) Anemia Anemia type: unspecified type Qualified Code(s): D64.9 - Anemia, unspecified (3) Hematoma of left thigh Encounter type: initial encounter Qualified Code(s): S70.12XA - Contusion of left thigh, initial encounter
[2023-05-03] MEDS ORDERED: WARFARIN SOD 6 MG TAB PO SCH (16:00)
[2023-05-04] MEDS: HEPARIN SODIUM/DEXTROSE 25,000 UNITS/500 ML BAG IV SCH ×2 (03:07→17:01)
[2023-05-04] MEDS: SOTALOL HCL 80 MG TAB PO SCH (09:00)
[2023-05-04] MEDS: UMECLIDINIUM/VILANTEROL 62.5/25MCG 7 PUFFS/INHALER INH SCH (09:01)
[2023-05-04] MEDS: PANTOprazole 40 MG TAB PO SCH (09:01)
--- NOTE | 2023-05-04 10:14 | Hospitalist Progress Note ---
Date of Service May 04, 2023 Assessment & Plan (1) Hematoma of left inguinal region: (2) Anemia: (3) Hematoma of left thigh: (4) Chronic anticoagulation: (5) Coronary artery disease: Plan Pt is a 87 yo male who presents to the hospital on 04/25/23 for groin hematoma and symptomatic anemia in the setting of chronic anticoagulation with Warfarin. Patient breathing improved compared to yesterday but shallow breathing still noted. O2 sats have remained > 90. Patient movement limited by weakness. Nursing and PT to help patient stand and move to bedside chair when able. Hematoma (left inguinal region) / chronic anticoagulation - Ultrasound 04/25: 12.5 x 11.1 x 20.4 cm left groin fluid collection, likely hematoma, and no DVT - pt had fall a few weeks ago, had been experiencing L groin pain and swelling of groin and L LE for last week - presented with symptomatic anemia requiring transfusion of 2 units of PRBC (Hgb of 7 on admission) today's Hgb stable at 9.7 - anticoagulation with warfarin changed yesterday to 6mg. INR today at 1.7. Will maintain 6mg dose. bridge with Heparin daily CBC and PT/INR Symptomatic anemia - Hgb 9.7 today (7 on admission); s/p 3 units of PRBC - secondary to large groin hematoma s/p fall Urinary Incontinence - Patient's incontinence may be related to confused state combined with weakness that impedes him from standing and using bathroom or bedside commode, but overflow incontinence vs other types of incontinence may be considered. - Condom Spears on today, but he keep removing it, as per nursing - Will monitor. 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, metallic - most recent echo on 04/12/2023 with ejection fraction 55-60% - Hold furosemide, Mg-oxide, spironolactone, as BPs have been soft Elevated troponin - Troponin initially 68.3 --> 71.9 --> 68.0, - likely secondary to demand ischemia in setting of significant bleed with large drop in hgb COPD - Hospitalized from 04/09-04/18/2023 for COPD exacerbation - Anoro Ellipta added at that time, continue - Continue albuterol nebulizer 4 times daily as needed Full code DVT proph: Warfarin Admission and Anticipated Discharge Date Admission Date: April 25, 2023 Supervising Physician Co-Signing Physician Notes Resident Physician Supervision Note: I independently interviewed and examined the patient and verified the [place]aver[place] history and physical, reviewed labs and image studies and agree with resident findings and care plan. no new issues noted. Vitals noted. Alert - sitting in chair. Heart - RRR, lungs - CTA. Left thigh generalized swelling. Both LE with weakness. Right foot in plantar flexion. Left thigh a spontaneous hematoma with acute blood loss anemiain the context of chronic anticoagulation for a mitral valve replacementIn the acute context of having required bridging anticoagulation with Lovenox due to a subtherapeutic INR. -s/p 3 units PRBC - 04/26 and 04/27. -h/h stable. Chronic anticoagulation for mechanical mitral valve -Continue heparin drip low-dose. Started warfarin 04/29 -INR 1.7. Warfarin 6mgs - 05/04 -Will keep inpatient during current bridging considering bleed from previous bridging. Urinary incontinence - post void bladder scan - 100ml. frequent pad changes/condom cath trial. Acute diastolic failure - treated with Lasix - resolved. Gait disturbance with chronic right foot deformity - likely contributing to severe deconditioning. Severe deconditioning - PT/OT. Will be able to go to SNF once INR therapeutic. Subjective Pt is a 87 yo male who presents to the hospital on 04/25/23 for groin hematoma. Today, patient seems more awake and alert, although some confusion still present. Otherwise stable. Denies chest pain, SOB, fevers, chills, malaise, or other symptoms. Review of Systems Review of Systems: As per HPI. Physical Exam Physical Exam: General:Alert and awake, confused, no acute distress HEENT: Normocephalic, moist oral mucosa Cardio: Regular rate and rhythm Resp:Clear to auscultation, shallow breathing, no respiratory distress GI: Soft and nontender, nondistended, bowel sounds active Ext: L leg pitting edema noted, Hematoma noted in inner thigh near groin area of left extremity, R leg without edema Results & Data Results & Data Vital Signs (Past 12 Hours) Vital Signs Temp Pulse Pulse Resp BP Pulse Ox O2 Del Method 05/04/23 08:05 72 05/04/23 08:05 Room Air 05/04/23 07:53 36.4 C L 70 18 130/67 93 Room Air 05/04/23 04:00 36.5 C 80 18 122/60 94 Room Air 05/03/23 23:32 36.7 C 65 18 123/63 94 Room Air 05/03/23 22:47 Room Air Resident Activity Tracking Resident Involvement: Resident Care Provided Care Provided: Adult Hospital Medicine (2) Anemia Anemia type: unspecified type Qualified Code(s): D64.9 - Anemia, unspecified (3) Hematoma of left thigh Encounter type: initial encounter Qualified Code(s): S70.12XA - Contusion of left thigh, initial encounter
[2023-05-04 10:55] LABS: Basophils # (auto) 0.02 K/uL (0.00-0.20); Basophils % (auto) 0.2 %; Eosinophils # (auto) 0.31 K/uL (0.00-0.50); Eosinophils % (auto) 3.5 %; Hematocrit (blood only) 29.4 % (42.0-52.0); Hemoglobin 9.7 g/dl (14.0-18.0); Immature Granulocytes # (auto) 0.06 K/uL (0.01-0.20); Immature Granulocytes % (auto) 0.7 %; Lymphocytes # (auto) 1.01 K/uL (1.20-3.40); Lymphocytes % (auto) 11.4 %; Mean Corpuscular Hemoglobin 29.6 pg (25.0-34.0); Mean Corpuscular Volume 89.6 fL (80.0-100.0); Monocytes # (auto) 1.25 K/uL (0.11-0.59); Monocytes % (auto) 14.1 %; Neutrophils # (auto) 6.24 K/uL (1.40-6.50); Neutrophils % (auto) 70.1 %; Platelet Count 342 K/uL (130-400); RDW Coefficient of Variation 16.4 % (11.5-14.5); RDW Standard Deviation 53.2 fL (36.4-46.3); Red Blood Count 3.28 M/uL (4.70-6.10); White Blood Count 8.89 K/ul (4.8-10.8)
[2023-05-04 11:00] LABS: INR 1.7 (0.9-1.1); Prothrombin Time 18.2 Seconds (9.0-12.0)
[2023-05-04 11:09] LABS: Albumin Globulin Ratio 0.8 (0.9-2); Albumin Level 2.9 gm/dl (3.4-5.0); Bilirubin,Total 0.9 mg/dl (0.2-1.0); Calcium 8.8 mg/dl (8.6-10.3); Creatinine Clr Calc Pharmacy 44.8 ml/min; Est GFR (African American) 51.5 ml/min; Est GFR (Non-African American) 44.4 ml/min; Globulin 3.8 gm/dl (2.5-4.0); Potassium 4.4 mmol/L (3.5-5.1); Total Protein 6.7 gm/dl (6.0-8.3)
[2023-05-04] MEDS ORDERED: WARFARIN SOD 4 MG TAB PO SCH (16:00)
[2023-05-04] MEDS: WARFARIN SOD 6 MG TAB PO SCH (16:04)
[2023-05-05 07:13] LABS: Basophils # (auto) 0.02 K/uL (0.00-0.20); Basophils % (auto) 0.2 %; Eosinophils # (auto) 0.36 K/uL (0.00-0.50); Eosinophils % (auto) 4.4 %; Hematocrit (blood only) 28.1 % (42.0-52.0); Hemoglobin 9.1 g/dl (14.0-18.0); Immature Granulocytes # (auto) 0.03 K/uL (0.01-0.20); Immature Granulocytes % (auto) 0.4 %; Lymphocytes # (auto) 1.14 K/uL (1.20-3.40); Lymphocytes % (auto) 13.8 %; Mean Corpuscular Hemoglobin 29.5 pg (25.0-34.0); Mean Corpuscular Hgb Conc 32.4 g/dL (32.0-36.0); Mean Corpuscular Volume 91.2 fL (80.0-100.0); Mean Platelet Volume 9.9 fL (9.4-12.4); Monocytes # (auto) 1.17 K/uL (0.11-0.59); Monocytes % (auto) 14.2 %; Neutrophils # (auto) 5.53 K/uL (1.40-6.50); Platelet Count 340 K/uL (130-400); RDW Coefficient of Variation 16.4 % (11.5-14.5); RDW Standard Deviation 53.6 fL (36.4-46.3); Red Blood Count 3.08 M/uL (4.70-6.10); White Blood Count 8.25 K/ul (4.8-10.8)
[2023-05-05] MEDS: HEPARIN SODIUM/DEXTROSE 25,000 UNITS/500 ML BAG IV SCH ×2 (07:24→21:56)
[2023-05-05] MEDS: SOTALOL HCL 80 MG TAB PO SCH (07:25)
[2023-05-05] MEDS: PANTOprazole 40 MG TAB PO SCH (07:25)
[2023-05-05] MEDS: UMECLIDINIUM/VILANTEROL 62.5/25MCG 7 PUFFS/INHALER INH SCH (07:26)
[2023-05-05 07:41] LABS: Albumin Globulin Ratio 0.8 (0.9-2); Albumin Level 2.7 gm/dl (3.4-5.0); Bilirubin,Total 0.8 mg/dl (0.2-1.0); Calcium 8.6 mg/dl (8.6-10.3); Creatinine Clr Calc Pharmacy 45.8 ml/min; Est GFR (African American) 52.4 ml/min; Est GFR (Non-African American) 45.2 ml/min; Globulin 3.4 gm/dl (2.5-4.0); Potassium 4.1 mmol/L (3.5-5.1); Total Protein 6.1 gm/dl (6.0-8.3)
[2023-05-05 08:02] LABS: ANTI-Xa, UFH(UnfractionatedHep 0.34 IU/ml (0.3-0.7); Prothrombin Time 20.5 Seconds (9.0-12.0)
--- NOTE | 2023-05-05 09:27 | Hospitalist Progress Note ---
Date of Service May 05, 2023 Assessment & Plan (1) Hematoma of left inguinal region: (2) Anemia: (3) Hematoma of left thigh: (4) Chronic anticoagulation: (5) Coronary artery disease: Plan Pt is a 87 yo male who presents to the hospital on 04/25/23 for groin hematoma and symptomatic anemia in the setting of chronic anticoagulation with Warfarin. Patient breathing improved compared to yesterday but shallow breathing still noted. O2 sats have remained > 90. Patient movement limited by weakness. Nursing and PT to help patient stand and move to bedside chair when able. Hematoma (left inguinal region) / chronic anticoagulation - Ultrasound 04/25: 12.5 x 11.1 x 20.4 cm left groin fluid collection, likely hematoma, and no DVT - pt had fall a few weeks ago, had been experiencing L groin pain and swelling of groin and L LE for last week - presented with symptomatic anemia requiring transfusion of 2 units of PRBC (Hgb of 7 on admission) today's Hgb stable at 9.1 - anticoagulation with warfarin continued yesterday at 6mg. INR today at 2.0. Will maintain 6mg dose and consider changing back to home dose based on am INR. bridge with Heparin daily CBC and PT/INR Symptomatic anemia - Hgb 9.1 today (7 on admission); s/p 3 units of PRBC - secondary to large groin hematoma s/p fall Urinary Incontinence - Patient's incontinence may be related to confused state combined with weakness that impedes him from standing and using bathroom or bedside commode, but overflow incontinence vs other types of incontinence may be considered. - Condom Spears on today, but he keep removing it, as per nursing - Will monitor. 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, metallic - most recent echo on 04/12/2023 with ejection fraction 55-60% - Hold furosemide, Mg-oxide, spironolactone, as BPs have been soft Elevated troponin - Troponin initially 68.3 --> 71.9 --> 68.0, - likely secondary to demand ischemia in setting of significant bleed with large drop in hgb COPD - Hospitalized from 04/09-04/18/2023 for COPD exacerbation - Anoro Ellipta added at that time, continue - Continue albuterol nebulizer 4 times daily as needed Full code DVT proph: Warfarin Admission and Anticipated Discharge Date Admission Date: April 25, 2023 Supervising Physician Co-Signing Physician Notes Resident Physician Supervision Note: I independently interviewed and examined the patient and verified the [place] history and physical, reviewed labs and image studies and agree with resident findings and care plan. sleeping a lot. and son at bedside - concerned about his excessive sleepiness. Vitals noted. Alert - sitting in chair. Heart - RRR, lungs - CTA. Both LE with weakness. Right foot in plantar flexion. Left thigh a spontaneous hematoma with acute blood loss anemiain the context of chronic anticoagulation for a mitral valve replacementIn the acute context of having required bridging anticoagulation with Lovenox due to a subtherapeutic INR. -s/p 3 units PRBC - 04/26 and 04/27. -h/h stable. Chronic anticoagulation for mechanical mitral valve -Continue heparin drip low-dose. Started warfarin 04/29 -INR 2.0. Warfarin 6mgs - 05/05 -Will keep inpatient during current bridging considering bleed from previous bridging. Urinary incontinence - post void bladder scan - 100ml. frequent pad changes/condom cath trial. Acute diastolic failure - treated with Lasix - resolved. Gait disturbance with chronic right foot deformity - likely contributing to severe deconditioning. Severe deconditioning - Multiple recent hospitalization. Underlying gait disturbance. -PT/OT. Will be able to go to SNF once INR therapeutic. - reports need for putting shoes/boots when out of bed. Subjective Pt is a 87 yo male who presents to the hospital on 04/25/23 for groin hematoma. Today, patient seems more awake and alert, although some confusion still present. Otherwise stable. Denies chest pain, SOB, fevers, chills, malaise, or other symptoms. Review of Systems Review of Systems: As per HPI. Physical Exam Physical Exam: General:Alert and awake, confused, no acute distress HEENT: Normocephalic, moist oral mucosa Cardio: Regular rate and rhythm Resp:Clear to auscultation, shallow breathing, no respiratory distress GI: Soft and nontender, nondistended, bowel sounds active Ext: L leg pitting edema noted, Hematoma noted in inner thigh near groin area of left extremity, R leg without edema Results & Data Results & Data Vital Signs (Past 12 Hours) Vital Signs Temp Pulse Pulse Resp BP BP Pulse Ox 05/05/23 07:58 05/05/23 07:56 36.4 C L 68 16 123/68 93 05/05/23 07:15 75 05/05/23 02:47 36.6 C 67 18 128/67 94 05/04/23 23:08 36.4 C L 79 18 149/62 H 95 05/04/23 22:33 68 O2 Del Method 05/05/23 07:58 Room Air 05/05/23 07:56 Room Air 05/05/23 07:15 05/05/23 02:47 Room Air 05/04/23 23:08 Room Air 05/04/23 22:33 Resident Activity Tracking Resident Involvement: Resident Care Provided Care Provided: Adult Hospital Medicine (2) Anemia Anemia type: unspecified type Qualified Code(s): D64.9 - Anemia, unspecified (3) Hematoma of left thigh Encounter type: initial encounter Qualified Code(s): S70.12XA - Contusion of left thigh, initial encounter
[2023-05-05] MEDS: WARFARIN SOD 6 MG TAB PO SCH (16:24)
[2023-05-05] MEDS: ALBUT/IPRATROP 3MG/0.5MG NEB 3 ML VIAL NEB PRN (18:18)
[2023-05-06 04:11] LABS: Basophils # (auto) 0.01 K/uL (0.00-0.20); Basophils % (auto) 0.1 %; Eosinophils # (auto) 0.21 K/uL (0.00-0.50); Eosinophils % (auto) 2.5 %; Hematocrit (blood only) 26.6 % (42.0-52.0); Hemoglobin 8.9 g/dl (14.0-18.0); Immature Granulocytes # (auto) 0.04 K/uL (0.01-0.20); Immature Granulocytes % (auto) 0.5 %; Lymphocytes # (auto) 1.07 K/uL (1.20-3.40); Lymphocytes % (auto) 12.7 %; Mean Corpuscular Hemoglobin 30.3 pg (25.0-34.0); Mean Corpuscular Hgb Conc 33.5 g/dL (32.0-36.0); Mean Corpuscular Volume 90.5 fL (80.0-100.0); Mean Platelet Volume 9.9 fL (9.4-12.4); Monocytes # (auto) 1.08 K/uL (0.11-0.59); Monocytes % (auto) 12.8 %; Neutrophils # (auto) 6.03 K/uL (1.40-6.50); Neutrophils % (auto) 71.4 %; Platelet Count 381 K/uL (130-400); RDW Coefficient of Variation 16.2 % (11.5-14.5); RDW Standard Deviation 53.4 fL (36.4-46.3); Red Blood Count 2.94 M/uL (4.70-6.10); White Blood Count 8.44 K/ul (4.8-10.8)
[2023-05-06 04:26] LABS: Albumin Globulin Ratio 0.8 (0.9-2); Albumin Level 2.8 gm/dl (3.4-5.0); BUN Creatinine Ratio 20.9 (10-20); Bilirubin,Total 0.7 mg/dl (0.2-1.0); Calcium 8.8 mg/dl (8.6-10.3); Creatinine Clr Calc Pharmacy 49.7 ml/min; Est GFR (African American) 57.8 ml/min; Est GFR (Non-African American) 49.9 ml/min; Globulin 3.4 gm/dl (2.5-4.0); Potassium 4.2 mmol/L (3.5-5.1); Total Protein 6.2 gm/dl (6.0-8.3)
[2023-05-06 04:38] LABS: ANTI-Xa, UFH(UnfractionatedHep 0.46 IU/ml (0.3-0.7); INR 2.4 (0.9-1.1); Prothrombin Time 24.6 Seconds (9.0-12.0)
[2023-05-06] MEDS: PANTOprazole 40 MG TAB PO SCH (09:40)
[2023-05-06] MEDS: SOTALOL HCL 80 MG TAB PO SCH (09:40)
[2023-05-06] MEDS: UMECLIDINIUM/VILANTEROL 62.5/25MCG 7 PUFFS/INHALER INH SCH (09:41)
--- NOTE | 2023-05-06 11:02 | Hospitalist Progress Note ---
Date of Service May 06, 2023 Assessment & Plan (1) Hematoma of left inguinal region: (2) Anemia: (3) Hematoma of left thigh: (4) Chronic anticoagulation: (5) Coronary artery disease: Plan Pt is a 87 yo male who presents to the hospital on 04/25/23 for groin hematoma and symptomatic anemia in the setting of chronic anticoagulation with Warfarin. Patient breathing improved compared to yesterday Patient movement limited by weakness. Hematoma (left inguinal region) / chronic anticoagulation - Ultrasound 04/25: 12.5 x 11.1 x 20.4 cm left groin fluid collection, likely hematoma, and no DVT - pt had fall a few weeks ago, had been experiencing L groin pain and swelling of groin and L LE for last week - presented with symptomatic anemia requiring transfusion of 2 units of PRBC (Hgb of 7 on admission) today's Hgb stable at 8.9 - anticoagulation with warfarin continued yesterday at 6mg. INR today at 2.4. Will change to home dose (4mg) and begin discharge planning. Anticipate discharge to the [facility] tomorrow if patient remains stable. Heparin d/c PT/OT to evaluate patient Symptomatic anemia - Hgb 8.9 today (7 on admission); s/p 3 units of PRBC - secondary to large groin hematoma s/p fall Urinary Incontinence - Patient's incontinence may be related to confused state combined with weakness that impedes him from standing and using bathroom or bedside commode, but overflow incontinence vs other types of incontinence may be considered. - Condom Spears on today - Will monitor. 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, metallic - most recent echo on 04/12/2023 with ejection fraction 55-60% - Hold furosemide, Mg-oxide, spironolactone, as BPs have been soft Elevated troponin - Troponin initially 68.3 --> 71.9 --> 68.0, - likely secondary to demand ischemia in setting of significant bleed with large drop in hgb COPD - Hospitalized from 04/09-04/18/2023 for COPD exacerbation - Anoro Ellipta added at that time, continue - Continue albuterol nebulizer 4 times daily as needed Full code DVT proph: Warfarin Admission and Anticipated Discharge Date Admission Date: April 25, 2023 Supervising Physician Co-Signing Physician Notes Resident Physician Supervision Note: I independently interviewed and examined the patient and verified the [place]a history and physical, reviewed labs and image studies and agree with resident findings and care plan. awake in bed but easily dozing off. Vitals noted. Heart - RRR, lungs - CTA. Both LE with weakness. Right foot in plantar flexion. Left thigh a spontaneous hematoma with acute blood loss anemiain the context of chronic anticoagulation for a mitral valve replacementIn the acute context of having required bridging anticoagulation with Lovenox due to a subtherapeutic INR. -s/p 3 units PRBC - 04/26 and 04/27. -h/h stable. Chronic anticoagulation for mechanical aortic valve placed in 1994 -Started warfarin 04/29. INR 2.4. Warfarin 4mgs - 05/06. Goal INR 2.5-3.5 -d/c heparin drip. Urinary incontinence - post void bladder scan - 100ml. frequent pad changes/condom cath trial. Acute diastolic failure - treated with Lasix - resolved. Gait disturbance with chronic right foot deformity - likely contributing to severe deconditioning. Severe deconditioning - Multiple recent hospitalization. Underlying gait disturbance. -PT/OT. Will be able to go to SNF once INR therapeutic. - reports need for putting shoes/boots when out of bed. Discussed with case management today - will get updated PT/OT eval note. Submit authorization. Anticipate d/c tomorrow - can be discharged while auth pending. Subjective Pt is a 87 yo male who presents to the hospital on 04/25/23 for groin hematoma. Today, patient seems more awake and alert, although some confusion still present. Otherwise stable. Denies chest pain, SOB, fevers, chills, malaise, or other symptoms. Review of Systems Review of Systems: As per HPI. Physical Exam Physical Exam: General:Alert and awake, confused, no acute distress HEENT: Normocephalic, moist oral mucosa Cardio: Regular rate and rhythm Resp:Clear to auscultation, shallow breathing, no respiratory distress GI: Soft and nontender, nondistended, bowel sounds active Ext: L leg pitting edema noted, Hematoma noted in inner thigh near groin area of left extremity, R leg without edema Results & Data Results & Data Vital Signs (Past 12 Hours) Vital Signs Temp Pulse Pulse Resp BP BP Pulse Ox 05/06/23 07:56 69 05/06/23 07:56 05/06/23 07:44 36.4 C L 70 16 142/80 H 95 05/06/23 03:12 36.5 C 67 18 143/69 H 94 O2 Del Method 05/06/23 07:56 05/06/23 07:56 Room Air 05/06/23 07:44 Room Air 05/06/23 03:12 Room Air Resident Activity Tracking Resident Involvement: Resident Care Provided Care Provided: Adult Hospital Medicine (2) Anemia Anemia type: unspecified type Qualified Code(s): D64.9 - Anemia, unspecified (3) Hematoma of left thigh Encounter type: initial encounter Qualified Code(s): S70.12XA - Contusion of left thigh, initial encounter
[2023-05-06] MEDS ORDERED: WARFARIN SOD 4 MG TAB PO SCH (16:00)
[2023-05-06] MEDS: ALBUT/IPRATROP 3MG/0.5MG NEB 3 ML VIAL NEB PRN (16:11)
[2023-05-06] MEDS: ACETAMINOPHEN 325 MG TAB PO PRN (16:21)
[2023-05-07 05:39] LABS: Albumin Globulin Ratio 0.8 (0.9-2); Albumin Level 2.8 gm/dl (3.4-5.0); Bilirubin,Total 0.6 mg/dl (0.2-1.0); Calcium 8.7 mg/dl (8.6-10.3); Creatinine Clr Calc Pharmacy 46.4 ml/min; Est GFR (African American) 53.7 ml/min; Est GFR (Non-African American) 46.4 ml/min; Globulin 3.7 gm/dl (2.5-4.0); Potassium 4.4 mmol/L (3.5-5.1); Total Protein 6.5 gm/dl (6.0-8.3)
[2023-05-07 05:43] LABS: Basophils # (auto) 0.02 K/uL (0.00-0.20); Basophils % (auto) 0.3 %; Eosinophils # (auto) 0.24 K/uL (0.00-0.50); Eosinophils % (auto) 3.2 %; Hematocrit (blood only) 29.6 % (42.0-52.0); Hemoglobin 9.2 g/dl (14.0-18.0); Immature Granulocytes # (auto) 0.03 K/uL (0.01-0.20); Immature Granulocytes % (auto) 0.4 %; Lymphocytes # (auto) 1.09 K/uL (1.20-3.40); Lymphocytes % (auto) 14.5 %; Mean Corpuscular Hgb Conc 31.1 g/dL (32.0-36.0); Mean Corpuscular Volume 93.4 fL (80.0-100.0); Mean Platelet Volume 9.8 fL (9.4-12.4); Monocytes # (auto) 0.97 K/uL (0.11-0.59); Monocytes % (auto) 12.9 %; Neutrophils # (auto) 5.16 K/uL (1.40-6.50); Neutrophils % (auto) 68.7 %; Platelet Count 440 K/uL (130-400); RDW Coefficient of Variation 16.2 % (11.5-14.5); RDW Standard Deviation 55.4 fL (36.4-46.3); Red Blood Count 3.17 M/uL (4.70-6.10); White Blood Count 7.51 K/ul (4.8-10.8)
[2023-05-07 05:49] LABS: ANTI-Xa, UFH(UnfractionatedHep < 0.10 IU/ml (0.3-0.7); INR 2.7 (0.9-1.1); Prothrombin Time 27.6 Seconds (9.0-12.0)
[2023-05-07] MEDS: SOTALOL HCL 80 MG TAB PO SCH (07:06)
[2023-05-07] MEDS: PANTOprazole 40 MG TAB PO SCH (07:07)
[2023-05-07] MEDS: UMECLIDINIUM/VILANTEROL 62.5/25MCG 7 PUFFS/INHALER INH SCH (07:07)
--- NOTE | 2023-05-07 11:18 | Discharge Summary ---
Date of Service May 07, 2023 Admission HPI Per Admitting Provider The patient is an 87-year-old male with a past medical history including esophageal dysmotility, granulomatous lung disease, CAD, atrial flutter, atrial fibrillation, mechanical AVR, bovine MVR, CKD stage III, RLS, idiopathic polyneuropathy, ambulatory dysfunction, HFpEF, right knee pseudogout, restrictive lung disease, hypercholesterolemia and chronic obstructive asthma. Patient presents to the emergency department with complaint of worsening left groin pain and swelling and left lower extremity swelling after a ground-level fall with his walker about 1 week ago Admission Exam Per Admitting Provider The patient is awake, alert and oriented 3, well developed and well nourished, normocephalic and atraumatic, lying in bed and in no acute distress. HEENT--PERRL, EOMI, mucous membranes and oropharynx mildly dry. Neck--supple. No JVD. No bruits. Thyroid normal, trachea midline, no adenopathy. Heart--normal S1 and S2. No murmurs, rubs or gallops. Lungs--clear bilaterally, no respiratory distress, no accessory muscle use. Abdomen--normal bowel sounds and soft. Nontender. Nondistended Pelvis-palpable protrusion left groin area Extremities--right lower extremity negative. Left lower extremity 3-4+ pitting edema. Dermatologic--normal skin turgor, normal color, no abnormal lymph nodes, Neurologic--cranial nerves II through XII grossly intact. Rheumatologic--limited exam due to left groin and left lower extremity swelling Psychiatric--normal affect. Principal Diagnosis Spontaneous left groin hematoma Discharge Exam General:Alert and awake, confused, no acute distress HEENT: Normocephalic, moist oral mucosa Cardio: Regular rate and rhythm Resp:Clear to auscultation, shallow breathing, no respiratory distress GI: Soft and nontender, nondistended, bowel sounds active Ext: L leg pitting edema noted, Hematoma noted in inner thigh near groin area of left extremity, R leg without edema Discharge Data Allergies Allergy/AdvReac Type Severity Reaction Status Date / Time cyclobenzaprine Allergy Intermediate ON THE Verified 04/25/23 12:12 [From Flexeril] [facility] MED LIST Penicillins Allergy Intermediate RASH Verified 04/25/23 12:12 celecoxib [From Celebrex] Allergy Unknown ON THE Verified 04/25/23 12:12 [employer] MED LIST simvastatin Allergy Unknown ON THE Verified 04/25/23 12:12 [facility] MED LIST Consultations 04/25/23 05:20 ED Decision to Admit Stat Ordered Studies 04/25/23 03:35 US venous doppler LE LT Stat 04/28/23 10:31 US venous doppler LE RT Urgent Hospital Course (1) Hematoma of left inguinal region: (2) Anemia: (3) Hematoma of left thigh: (4) Chronic anticoagulation: (5) Coronary artery disease: Plan Pt is a 87 yo male who presents to the hospital on 04/25/23 for groin hematoma and symptomatic anemia in the setting of chronic anticoagulation with Warfarin. Hematoma (left inguinal region) (Acute, stable) - Spontaneous hematoma in the setting of chronic anticoagulation with warfarin; failed bridge with lovenox - Ultrasound 04/25: 12.5 x 11.1 x 20.4 cm left groin fluid collection, likely hematoma, and no DVT - presented with symptomatic anemia requiring transfusion of 2 units of PRBC (Hgb of 7 on admission) today's Hgb stable at 9.2 - Anticoagulation with Warfarin resumed at home dose yesterday. Heparin drip dc on 05/05/23 - INR today 2.7 Symptomatic anemia (resolved) - Hgb 9.2 today (7 on admission); s/p 3 units of PRBC Urinary Incontinence (chronic, stable) - Patient's incontinence may be related to confused state combined with weakness that impedes him from standing and using bathroom or bedside commode, but overflow incontinence vs other types of incontinence may be considered. - Condom catheter while in the hospital Atrial fibrillation (chronic, stable) - Continue sotalol HFpEF (chronic, stable) CAD (chronic, stable) Hx MVR with bovine and AVR, metallic (chronic, stable) - most recent echo on 04/12/2023 with ejection fraction 55-60% - Hold furosemide, Mg-oxide, spironolactone, may resume after discharge if BP allow Elevated troponin (Resolved) - Troponin initially 68.3 --> 71.9 --> 68.0, - likely secondary to demand ischemia in setting of significant bleed with large drop in hgb COPD (chronic, stable) - Hospitalized from 04/09-04/18/2023 for COPD exacerbation - Anoro Ellipta added at that time, continue - Continue albuterol nebulizer 4 times daily as needed after discharge Patient evaluated at bedside and found alone, awake, alert, and in no acute distress. At this time, his INR has reached therapeutic range and home dose has been resumed. Patient is stable and found fit to be discharged to [facility] today. Total Time Total Time Spent Total Time Spent (In Minutes): <30 Discharge Plan Discharge Items Patient Disposition: Transfer Alf Fac Reason For Visit: L GROIN HEMATOMA,ANEMIA Discharge Diagnosis: spontaneous left groin hematoma in the setting of chronic anticoagulation Activity: Per Instructions section Non-emergency contact: Primary Care Provider Call non-emergency contact if: your symptoms worsen Follow-up/Referrals: Clau Mederos MD [Primary Care Provider] - Diet: Heart Healthy Ambulatory Orders: Prothrombin Time INR (DAILY) Timeframe: 20230509 Location: Determined by Patient Ordered By: Adedoyin Okulate Prothrombin Time INR (DAILY) Timeframe: 20230510 Location: Determined by Patient Ordered By: Adedoyin Okulate Prothrombin Time INR (DAILY) Timeframe: 20230511 Location: Determined by Patient Ordered By: Adedoyin Okulate Prothrombin Time INR (DAILY) Timeframe: 20230512 Location: Determined by Patient Ordered By: Adedoyin Okulate Prothrombin Time INR (DAILY) Timeframe: 20230513 Location: Determined by Patient Ordered By: Adedoyin Okulate Prothrombin Time INR (DAILY) Timeframe: 20230514 Location: Determined by Patient Ordered By: Adedoyin Okulate Prothrombin Time INR (DAILY) Timeframe: 20230515 Location: Determined by Patient Ordered By: Adedoyin Okulate Prothrombin Time INR (DAILY) Timeframe: 20230516 Location: Determined by Patient Ordered By: Adedoyin Okulate Prothrombin Time INR (DAILY) Timeframe: 20230517 Location: Determined by Patient Ordered By: Adedoyin Okulate Prothrombin Time INR (DAILY) Timeframe: 20230518 Location: Determined by Patient Ordered By: Adedoyin Okulate Addtl Attending Provider Instructions: You were admitted to the hospital for management of a spontaneous bleed that occurred due to problems with your blood thinners (Warfarin). Because of your bleed, we held your warfarin on admission, and then restarted it once we made sure you weren't actively bleeding. We monitored you while we were "bridging" back to Warfarin to make sure another episode of bleeding didn't occur. We achieved the target INR range. For this reason, we find you fit to be discharged back to [facility] today. A discharge summary will be sent to your primary care physician to ensure continuity of care. Please bring this discharge summary with you to your next office appointment so that your provider can review it at that time. Follow-up appointments: Make a follow-up appointment with your PCP within the next week. It is very important that you follow up with them shortly after discharge from the hospital. Keep all your follow-up appointments as already scheduled. If you cannot make an appointment, notify your provider. Medications: Your medication list has been reviewed and reconciled upon discharge to ensure accuracy and continuity of care. An updated list of all your medications is included with your hospital discharge paperwork. Please review this list closely, and make note of any changes. If you have any issues filling these prescriptions, please call [phone] and ask to leave a message for Dr. Green. Take your medications as instructed; do not skip a dose of your medicines. Make sure all of your doctors know every medicine you are taking (including [id number] medicines, vitamins, and supplements). Call your primary care provider before taking any new medicines (including over- the-counter medicines, vitamins, and supplements), because some of these may interact with your current medications, or may make your symptoms worse. Tell your primary care provider if you cannot afford your medications. CONTACT YOUR PRIMARY CARE PROVIDER if you experience any of the following: Worsening of symptoms Fever, chills, or fatigue Difficulty following your treatment plan, or difficulty taking medications CALL 911 OR GO TO THE EMERGENCY DEPARTMENT if you experience any of the following: Sudden, severe abdominal pain or nausea/vomiting Severe chest pain, or chest pain that radiates (moves) to your jaw or arm Sudden, severe shortness of breath or difficulty breathing Thank you for allowing us to participate in your care. Pending Studies at Discharge: No Stand-Alone Forms: [employer] [facility] Skilled Items Patient informed of condition?: Yes DNR: No Discharge Level of Care: Skilled Communicable Disease: No Discharge Prognosis: Stable Lines: None Urinary Catheter: No Medications and DC Order Prescriptions: Continued ropinirole 0.25 mg tablet 0.25 mg PO HS Qty: 90 0RF (DME) [place] [employer] Comf Protect XL Misc See Rx Instructions .Route Qty: 100 3RF Rx Instructions: As directed vitamin B complex [B Complex-Vitamin B12] Tablet 1 tab PO DAILY magnesium oxide 400 mg magnesium capsule 400 mg PO DAILY spironolactone 25 mg tablet 12.5 mg PO DAILY atorvastatin 20 mg tablet 20 mg PO HS Qty: 90 3RF sotalol 80 mg Tablet 40 mg PO QAM folic acid 400 mcg Tablet 0.4 mg PO DAILY ascorbic acid (vitamin C) [Vitamin C] 500 mg Tablet 500 mg PO DAILY sennosides [Senokot] 8.6 mg Tablet 17.2 mg PO QAM Qty: 0 0RF acetaminophen 325 mg Tablet 650 mg PO Q4H PRNQty: 0 0RF gabapentin 100 mg Capsule 100 mg PO BID Qty: 0 0RF Anoro Ellipta 62.5-25 mcg/actuation Blister With Device 1 inh inhalation DAILY Qty: 0 0RF ipratropium-albuterol 0.5 mg-3 mg(2.5 mg base)/3 mL Solution For Nebulization 3 ml INHALATION Q6H PRN (Reason: Shortness Of Breath) omega-3 fatty acids 1,000 mg Capsule 2,000 mg PO DAILY prednisone 20 mg Tablet 20 mg PO DAILY melatonin 3 mg Tablet 3 mg PO HS warfarin 4 mg Tablet 4 mg PO 4XWK Rx Instructions: TAKES TU, TH, SAT & SUN. warfarin 6 mg Tablet 3 mg PO 3XWK Rx Instructions: TAKES MON, WED, & FRI. pantoprazole 40 mg Tablet,Delayed Release (Dr/Ec) 40 mg PO DAILYBB furosemide [Lasix] 20 mg Tablet 20 mg PO DAILY polyethylene glycol 3350 [Miralax] 17 gram/dose Powder 17 g PO DAILY doxycycline hyclate 100 mg Tablet 100 mg PO BID Rx Instructions: STARTED 04/18/23 diclofenac sodium [Voltaren Arthritis Pain] 1 % gel 4 g EXT QID PRN (Reason: Pain) Discharge Orders: Discharge Order (Routine); Ordered 05/07/23 Ordered By: Leta Green Admission Data Admit Date/Time: 04/25/23 06:07 Attending Provider: Rusty Cheng Admit Provider: Nazario Diaz Primary Care Provider: Clau Mederos Other Providers: Nazario Diaz Other Interventions: Discharge Summary Assessment (RN) Last Done: 05/07/23 14:29 Supervising Physician Co-Signing Physician Notes I personally examined the patient and verified all talavera points of history and exam, discussed case, and agree with decision making with Dr Green feeling OK thigh doesn't hurt too much. vitals noted nad heent nc at mmm breathing unlabored no acccessory muscles good effort skin no rashes no pallor or icterus Left thigh a spontaneous hematoma with acute blood loss anemiain the context of chronic anticoagulation for a mitral valve replacementIn the acute context of having required bridging anticoagulation with Lovenox due to a subtherapeutic INR. -s/p 3 units PRBC - 04/26 and 04/27. -h/h stable. Chronic anticoagulation for mechanical aortic valve placed in 1994 -Started warfarin 04/29. INR 2.7 - stable for [facility] Acute diastolic failure - treated with Lasix - resolved. Gait disturbance with chronic right foot deformity - likely contributing to severe deconditioning. SNF at discharge Severe deconditioning - Multiple recent hospitalization. Underlying gait disturbance. -PT/OT. ongoing at SNF stable for [facility] otherwise as above
[2023-05-07] MEDS ORDERED: WARFARIN SOD 3 MG TAB PO SCH (16:00)
--- NOTE | 2023-05-07 16:57 | Billing Data ---
Date of Service May 07, 2023 Coding Level of Care Code 65800 IN/OBS DISCH 30 MIN/LESS
== END 2023-05-07 15:23 | DRG 813 ==
LOC: SUATTDRO → ED 02:18 → SUATTDRO 06:07 → EDINP 06:07 → 4W 08:05 → 2N 05-03 22:12

== ENCOUNTER 2023-07-29 13:11 | Inpatient (IN) ==
--- NOTE | 2023-07-29 13:19 | Emergency Department Note ---
Impression & Plan Acute exacerbation of congestive heart failure, Acute leg pain, Superficial bruising of lower leg ED Provider Note NAME: ALESSANDRO MONTERO AGE: 87 SEX: M : 1935 ARRIVES VIA: Ambulance INFORMANT: Patient, ED PROVIDER(S): Jsoh Tyler MD CHIEF COMPLAINT: Leg pain MEDICAL DECISION MAKING: Patient presents primarily due to leg pain but does have a history of CHF and does have some shallow breathing with shortness of breath. IV was established and blood work was obtained along with a chest x-ray ultrasound BNP. Patient has a white count of 12 with a hemoglobin 12.9. The patient's platelet count is unremarkable. INR 3.1. Kidney function with a creatinine 1.6. This is chronic and stable. BNP of 304. Patient's urinalysis did not show evidence of blood or infection. The patient's chest x-ray does show concern for pulmonary edema. Vascular ultrasound shows soft tissue edema patient's DVT ultrasound is negative. Given the patient's short shallow breathing at the bedside with pulmonary edema and the patient has had weight gain of approximately 15 kg do believe the patient would benefit from inpatient treatment. The patient was ordered a dose of IV Lasix and admitted to the medicine service. Discussion w/ other healthcare providers: None Prior /Outside records reviewed: I reviewed a discharge summary from [facility] from April 2023. Patient had presented at that time due to concern for worsening left groin pain and swelling of the left lower extremity after ground-level fall. Patient was noted to have a hematoma of the left inguinal region. The patient had been taking Coumadin at that time. Patient's fluid collection at that time from an ultrasound from 04 25 noted 12.5 x 1.1 x 20.4 cm left groin fluid collection likely hematoma no evidence of DVT. The patient did receive a transfusion at that time as his hemoglobin was 7 received 2 units with a repeat hemoglobin of 9.2. Differential diagnosis: Reactive airway disease, pneumonia, pneumothorax, COPD, CHF, ACS, pulmonary embolism, musculoskeletal, GERD as well as other pathologies were considered. Diagnostics, as interpreted by me: ECG: V paced rhythm, rate of 67, wide QRS, left axis deviation no ST elevations. Cardiac monitoring: An order was placed for continuous cardiac monitoring. The monitor shows a rate of 68 with sinus rhythm. Patient was placed on pulse oximetry Medical decision rules: None Imaging studies: I informally interpreted the patient's chest x-ray shows cardiomegaly and pulmonary edema with formal report to follow. HPI: Patient presents due to concern for leg pain. The at bedside reports that he was sitting in a wheelchair and on he had his right leg up which fell striking the back of his right knee. Since then [facility] and they are applying ice and trying to keep it elevated. The patient did have some worsening pain and discoloration noted today. The patient does have a history of mechanical valve which she does take Coumadin. Patient did have an admission recently due to concern for an inguinal hematoma. The patient does complain of shortness of breath which is what he describes as chronic and does have a history of CHF. They have noticed a weight gain. He does have lower extremity swelling. The patient denies any cough or fever no chest pains no abdominal pain. Patient states he is compliant with his medication and believes that he last took his Coumadin last night. PAST MEDICAL HISTORY: See Below PAST SURGICAL HISTORY: See Below SOCIAL HISTORY: See Below HOME MEDICATIONS: See Below ALLERGIES: See Below VITALS: See Below PHYSICAL EXAMINATION: GENERAL: NAD, non-toxic. EYE EXAM: Normal conjunctiva. PERRL, no anisocoria and EOM's grossly intact w/o pain. OROPHARYNX: Moist mucus membranes, grossly normal dentition. NECK: Trachea midline, no stridor. Supple, no nuchal rigidity, no adenopathy, non-tender. No signs of meningismus. FROM of the neck with good chin to chest and neck extension. LUNGS: Clear to auscultation. Normal chest wall mechanics. HEART: NSR, no MRG. ABDOMEN: Abdomen soft, non-tender, no masses, no rebound or guarding. BACK: No CVA TTP. SKIN: No rashes, bruising noted to the posterior aspect of the right knee approximately 5 x 12 cm, no fluctuance UPPER EXTREMITIES: Upper extremities are grossly normal. LOWER EXTREMITIES: Grossly normal. Bruising as noted above. Bilateral lower extremity edema 2+ NEURO EXAM: A&O x3, cranial nerves II-XII grossly intact, normal speech, moves all 4 extremities. Past Med/Surg History Medical History Chronic anticoagulation CKD (chronic kidney disease), stage III Macular degeneration GETS SHOTS IN EYES FOR TREATMENT Q8-10 WEEKS Restless leg syndrome History of cardioversion History of atrial fibrillation Hypertension Aortic valve disorder Atrial flutter BPH with obstruction/lower urinary tract symptoms Coronary artery disease Nonobstructive on [facility] 2012 Ventral hernia Moderate obstructive sleep apnea Pseudogout Surgical History History of left cataract surgery 11/19/2019. propofol given. History of colonoscopy History of tooth extraction History of inguinal hernia repair LEFT X 2 History of vasectomy History of mitral valve replacement 4 YEARS AGO (DENICE TAYLOR) History of aortic valve replacement AT AGE 58 (DENICE TAYLOR) Family History Sister Heart disease Denies family history of Ovarian cancer Prostate cancer Myocardial infarction Breast cancer Colorectal cancer Social History Smoking Status: Never smoker Second Hand Exposure: No; Do You Dip or Chew Tobacco: No; Hx Alcohol Use: Yes Alcohol type: wine Alcohol Intake Frequency: 2-3 x/Week Alcohol Intake Frequency Comment: 2 glasses of wine per week Hx Substance Use: No Preferred Language: Upper Sorbian Communication Ability: Impaired Visual Impairment: Diminished Hearing Ability: Normal Investment Banker Required: No Beliefs That Will Affect Care: None marital status: Current Living Situation: Spouse current occupational status: retired 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 Feels Safe at Home: Yes Childhood Exposure to Second-Hand Smoke: Yes Diet: regular Dental Care, Regularly: Yes Physical Activity Frequency: Daily Seatbelt Use: always Sunscreen Use: Yes (sometimes ) Assistive Devices: Walker Allergies Allergies Allergy/AdvReac Type Severity Reaction Status Date / Time cyclobenzaprine Allergy Intermediate ON THE Verified 07/29/23 16:27 [From Flexeril] [facility] Penicillins Allergy Intermediate RASH Verified 07/29/23 16:27 celecoxib [From Celebrex] Allergy Unknown ON THE Verified 07/29/23 16:27 [facility] simvastatin Allergy Unknown ON THE Verified 07/29/23 16: [facility] MED LIST Home Meds Home Medications Medication Instructions Recorded Confirmed sotalol 80 mg tablet 40 mg PO QAM 11/12/19 07/29/23 magnesium oxide 400 mg PO DAILY 01/01/23 07/29/23 spironolactone 25 mg tablet 12.5 mg PO BID 01/01/23 07/29/23 ascorbic acid (vitamin C) 500 mg 500 mg PO DAILY 04/09/23 07/29/23 tablet (Vitamin C) folic acid 400 mcg tablet 0.4 mg PO DAILY 04/09/23 07/29/23 melatonin 3 mg tablet 3 mg PO HS 04/25/23 07/29/23 omega-3 fatty acids 1,000 mg 2,000 mg PO DAILY 04/25/23 07/29/23 capsule pantoprazole 40 mg tablet,delayed 40 mg PO DAILYBB 04/25/23 07/29/23 release polyethylene glycol 3350 17 17 g PO DAILY 04/25/23 07/29/23 gram/dose oral powder (Miralax) warfarin 4 mg tablet 4 mg PO 4XWK 04/25/23 07/29/23 warfarin 6 mg tablet 3 mg PO 3XWK 04/25/23 07/29/23 furosemide 40 mg tablet 40 mg PO QAM 07/29/23 07/29/23 menthol 0.44 %-zinc oxide 20.6 % 1 applic topical QS 07/29/23 07/29/23 topical ointment (Calmoseptine) prednisone 10 mg tablet 10 mg PO DAILY 07/29/23 07/29/23 vit C 250 mg-vit E 90 mg-zinc 40 2 tab PO DAILY 07/29/23 07/29/23 mg-copper 1 [id number] capsule (PreserVision AREDS-2) vitamin B complex 1 tab PO DAILY 07/29/23 07/29/23 Previous Rx's Medication Instructions Recorded atorvastatin 20 mg tablet 20 mg PO HS #90 tabs 01/01/23 ropinirole 0.25 mg tablet 0.25 mg PO HS #90 tabs 01/08/23 acetaminophen 325 mg tablet 650 mg (2 x 325 mg) PO Q4H PRN #0 04/18/23 tabs gabapentin 100 mg capsule 100 mg PO BID #0 caps 04/18/23 sennosides 8.6 mg tablet (Senokot) 17.2 mg (2 x 8.6 mg) PO QAM #0 tabs 04/18/23 umeclidinium 62.5 mcg-vilanterol 1 inh inhalation DAILY #0 ea 04/18/23 25 mcg/actuation powdr for inhalation (Anoro Ellipta) Results & Data (ED) Vital Signs Vital Signs - 24 hr 07/29/23 13:17 07/29/23 14:03 07/29/23 16:15 Temperature 36.5 C Temperature Source Oral Pulse Rate 78 65 Pulse Rate from SpO2 Sensor 67 Pulse Rhythm Regular Pulse Strength Normal Respiratory Rate 18 23 Respiratory Effort / Characteristics Non-Labored Respiratory Depth Normal Respiratory Pattern Regular Blood Pressure 139/78 Blood Pressure Mean 98 Blood Pressure Position Sitting Pulse Oximetry 97 98 95 Oxygen Delivery Method Room Air Room Air Sepsis Recent Fever Within 48 Hours No Sepsis New/Unexplained Change in Mental Status No Sepsis Action Taken by Nursing No Action Required 07/29/23 16:20 07/29/23 16:23 07/29/23 16:30 Temperature Temperature Source Pulse Rate 69 65 69 Pulse Rate from SpO2 Sensor 69 68 Pulse Rhythm Pulse Strength Respiratory Rate 22 21 Respiratory Effort / Characteristics Respiratory Depth Respiratory Pattern Blood Pressure Blood Pressure Mean Blood Pressure Position Pulse Oximetry 94 95 Oxygen Delivery Method Sepsis Recent Fever Within 48 Hours Sepsis New/Unexplained Change in Mental Status Sepsis Action Taken by Nursing 07/29/23 16:40 07/29/23 16:50 07/29/23 17:00 Temperature Temperature Source Pulse Rate 70 69 Pulse Rate from SpO2 Sensor 69 70 Pulse Rhythm Pulse Strength Respiratory Rate 18 18 Respiratory Effort / Characteristics Respiratory Depth Respiratory Pattern Blood Pressure 128/79 Blood Pressure Mean 84 Blood Pressure Position Pulse Oximetry 94 95 Oxygen Delivery Method Sepsis Recent Fever Within 48 Hours Sepsis New/Unexplained Change in Mental Status Sepsis Action Taken by Nursing 07/29/23 17:00 07/29/23 17:10 07/29/23 17:20 Temperature Temperature Source Pulse Rate 70 70 73 Pulse Rate from SpO2 Sensor 70 70 72 Pulse Rhythm Pulse Strength Respiratory Rate 21 21 16 Respiratory Effort / Characteristics Respiratory Depth Respiratory Pattern Blood Pressure Blood Pressure Mean Blood Pressure Position Pulse Oximetry 96 96 94 Oxygen Delivery Method Sepsis Recent Fever Within 48 Hours Sepsis New/Unexplained Change in Mental Status Sepsis Action Taken by Nursing 07/29/23 17:30 07/29/23 17:40 07/29/23 17:50 Temperature Temperature Source Pulse Rate 72 73 81 Pulse Rate from SpO2 Sensor 70 73 72 Pulse Rhythm Pulse Strength Respiratory Rate 14 19 18 Respiratory Effort / Characteristics Respiratory Depth Respiratory Pattern Blood Pressure Blood Pressure Mean Blood Pressure Position Pulse Oximetry 96 95 94 Oxygen Delivery Method Sepsis Recent Fever Within 48 Hours Sepsis New/Unexplained Change in Mental Status Sepsis Action Taken by Residential Medications Current Medication List: was personally reviewed by me Laboratory Data Attestation: I reviewed the patient's lab results. 07/29/23 14:02 07/29/23 14:02 Lab Results 07/29/23 07/29/23 Range/Units 14:02 17:12 WBC 12.31 H (4.8-10.8) K/ul RBC 4.17 L (4.70-6.10) M/uL Hgb 12.9 L (14.0-18.0) g/dl Hct 38.8 L (42.0-52.0) % MCV 93.0 (80.0-100.0) fL MCH 30.9 (25.0-34.0) pg MCHC 33.2 (32.0-36.0) g/dL RDW Std Deviation 54.9 H (36.4-46.3) fL RDW Coeff of Cresencio 16.1 H (11.5-14.5) % Plt Count 235 (130-400) K/uL MPV 10.8 (9.4-12.4) fL Immature Gran % (Auto) 0.5 % Neut % (Auto) 72.7 % Lymph % (Auto) 12.3 % [place] % (Auto) 12.6 % Eos % (Auto) 1.7 % Baso % (Auto) 0.2 % Neut # (Auto) 8.96 H (1.40-6.50) K/uL Lymph # (Auto) 1.51 (1.20-3.40) K/uL [place] # (Auto) 1.55 H (0.11-0.59) K/uL Eos # (Auto) 0.21 (0.00-0.50) K/uL Baso # (Auto) 0.02 (0.00-0.20) K/uL Immature Gran # (Auto) 0.06 (0.01-0.20) K/uL PT 31.9 H (9.0-12.0) Seconds INR 3.1 H (0.9-1.1) APTT 48 H (21-31) Seconds PTT Ratio 1.7 Sodium 136 (136-145) mmol/L Potassium 4.5 (3.5-5.1) mmol/L Chloride 98 (98-107) mmol/L Carbon Dioxide 33 H (21-32) mmol/L Anion Gap 5 (3-11) BUN 27 H (6-23) mg/dl Creatinine 1.60 H (0.6-1.4) mg/dl Est Cr Clr Drug Dosing 42.4 ml/min Est GFR ( Amer) 44.6 ml/min Est GFR (Non-Af Amer) 38.4 ml/min BUN/Creatinine Ratio 16.9 (10-20) Glucose 109 H (70-99(Fasting)) mg/dl Calcium 8.9 (8.6-10.3) mg/dl Magnesium 1.8 (1.7-2.4) mg/dl Total Bilirubin 0.4 (0.2-1.0) mg/dl AST 19 (13-39) U/L ALT 14 (7-52) U/L Alkaline Phosphatase 59 (34-104) U/L B-Natriuretic Peptide 304 H (0-100) pg/ml Total Protein 6.9 (6.0-8.3) gm/dl Albumin 3.5 (3.4-5.0) gm/dl Globulin 3.4 (2.5-4.0) gm/dl Albumin/Globulin Ratio 1.0 (0.9-2) Urine Color Yellow Urine Appearance Clear (Clear) Urine pH 7.0 (4.5-7.5) Ur Specific [place] 1.007 (1.000-1.030) Urine Protein Negative (Negative) Urine Glucose (UA) Negative (Negative) Urine Ketones Negative (Negative) Urine Blood Negative (Negative) Urine Nitrite Negative (Negative) Urine Bilirubin Negative (Negative) Urine Urobilinogen Negative (Negative) Ur Leukocyte Esterase Negative (Negative) Administered Medications Discontinued Medications Albuterol (Albut/Ipratrop 3mg/0.5mg Neb 3 Ml Vial) 3 ml INH NOW STA Stop: 07/29/23 13:46 Last Admin: 07/29/23 14:05 Dose: 3 ml Documented By: SHAYLEE Furosemide (Furosemide 40 Mg/4 Ml Vial) 40 mg IV ONE ONE Stop: 07/29/23 15:49 Last Admin: 07/29/23 16:09 Dose: 40 mg Documented By: BCDurga Imaging Data Radiologist's Impression: Chest X-Ray 07/29/23 13:45 XR chest 1V portable CLINICAL HISTORY: Dyspnea TECHNIQUE: Single frontal radiograph of the chest was obtained. Comparison: Comparison is made to chest radiograph 04/25/2023 FINDINGS: Median sternotomy wires are unchanged. Pacemaker is seen. Cardiomegaly is noted. The aortic arch is calcified. Prominence and cephalization of the vasculature is seen. Faint bilateral airspace opacities in the lower lungs. No evidence of pleural effusion or pneumothorax. IMPRESSION: 1. Faint bibasilar airspace opacities which may represent atelectasis, pneumonia, and/or aspiration. 2. Cardiomegaly and mild pulmonary edema. ACT 112: Negative or not required by law. Electronically signed by: Brandon Flowers M.D. 07/29/2023 2:37 PM Vascular Ultrasound 07/29/23 13:45 US extremity non-vascular ltd CLINICAL HISTORY: RLE calf pain, ecchymosis TECHNIQUE: Real-time grayscale sonographic images of the right calf were obtained. Comparison: None available at the time of this dictation. FINDINGS/IMPRESSION: Soft tissue edema is seen without acute abnormality. ACT 112: Negative or not required by law. Electronically signed by: Brandon Flowers M.D. 07/29/2023 3:50 PM Venous Doppler Study 07/29/23 13:45 US venous doppler LE RT CLINICAL HISTORY: likely hematoma but calf pain TECHNIQUE: Right lower extremity real-time compression venous ultrasound with Color Doppler imaging. Utilizing real-time ultrasonic imaging multiple real time high-resolution ultrasonic images with compression and noncompression maneuvers of the deep venous system in addition to color doppler imaging were performed from the common femoral vein through the proximal calf veins. COMPARISON: Comparison is made to lower extremity Doppler ultrasound 04/28/2023 FINDINGS/IMPRESSION: Currently there is normal compressibility of the deep venous system from the common femoral vein through the proximal calf veins. Minimal soft tissue edema is seen in the calf. ACT 112: Negative or not required by law. Electronically signed by: Brandon Flowers M.D. 07/29/2023 3:49 PM Discharge Plan Visit Data Chief Complaint: Leg Injury/Pain ED Provider: Josh Tyler Discharge Problem: Acute exacerbation of congestive heart failure, Acute leg pain, Superficial bruising of lower leg Forms Stand Alone Forms: [facility] Prescriptions Prescriptions: No Action ropinirole 0.25 mg tablet 0.25 mg PO HS Qty: 90 0RF magnesium oxide 400 mg magnesium capsule 400 mg PO DAILY spironolactone 25 mg tablet 12.5 mg PO BID atorvastatin 20 mg tablet 20 mg PO HS Qty: 90 3RF sotalol 80 mg Tablet 40 mg PO QAM folic acid 400 mcg Tablet 0.4 mg PO DAILY ascorbic acid (vitamin C) [Vitamin C] 500 mg Tablet 500 mg PO DAILY sennosides [Senokot] 8.6 mg Tablet 17.2 mg PO QAM Qty: 0 0RF acetaminophen 325 mg Tablet 650 mg PO Q4H PRNQty: 0 0RF gabapentin 100 mg Capsule 100 mg PO BID Qty: 0 0RF Anoro Ellipta 62.5-25 mcg/actuation Blister With Device 1 inh inhalation DAILY Qty: 0 0RF omega-3 fatty acids 1,000 mg Capsule 2,000 mg PO DAILY melatonin 3 mg Tablet 3 mg PO HS warfarin 4 mg Tablet 4 mg PO 4XWK Rx Instructions: TAKES , , SUN & SUN. warfarin 6 mg Tablet 3 mg PO 3XWK Rx Instructions: TAKES MON, WED, & FRI. pantoprazole 40 mg Tablet,Delayed Release (Dr/Ec) 40 mg PO DAILYBB polyethylene glycol 3350 [Miralax] 17 gram/dose Powder 17 g PO DAILY prednisone 10 mg tablet 10 mg PO DAILY vitamin B complex Tablet 1 tab PO DAILY menthol-zinc oxide [Calmoseptine] 0.44-20.6 % Ointment 1 applic TOPICAL QS PreserVision AREDS-2 250-90-40-1 mg Capsule 2 tab PO DAILY furosemide 40 mg tablet 40 mg PO QAM Referrals Referrals: Clau Mederos MD [Primary Care Provider] - Discharge Problem: Acute exacerbation of congestive heart failure Qualifiers: Heart failure type: unspecified Qualified Code(s): I50.9 - Heart failure, unspecified Acute leg pain Qualifiers: Laterality: right Qualified Code(s): M79.604 - Pain in right leg Superficial bruising of lower leg Qualifiers: Encounter type: initial encounter Laterality: right Qualified Code(s): S80.11XA - Contusion of right lower leg, initial encounter
[2023-07-29] MEDS: ALBUT/IPRATROP 3MG/0.5MG NEB 3 ML VIAL INH STA (14:05)
--- NOTE | 2023-07-29 14:38 | XRay Report ---
XR chest 1V portable CLINICAL HISTORY: Dyspnea TECHNIQUE: Single frontal radiograph of the chest was obtained. Comparison: Comparison is made to chest radiograph 04/25/2023 FINDINGS: Median sternotomy wires are unchanged. Pacemaker is seen. Cardiomegaly is noted. The aortic arch is c alcified. Prominence and cephalization of the vasculature is seen. Faint bilateral airspace opacities in the lower lungs. No evidence of pleural effusion or pneumothorax. IMPRESSION: 1. Faint bibasilar airspace opacities which may represent atelectasis, pneumonia, and/or aspiration. 2. Cardiomegaly and mild pulmonary edema. ACT 112: Negative or not required by law. Electronically signed by: Brandon Flowers M.D. 07/29/2023 2:37 PM
[2023-07-29 14:44] LABS: Basophils # (auto) 0.02 K/uL (0.00-0.20); Basophils % (auto) 0.2 %; Eosinophils # (auto) 0.21 K/uL (0.00-0.50); Eosinophils % (auto) 1.7 %; Hematocrit (blood only) 38.8 % (42.0-52.0); Hemoglobin 12.9 g/dl (14.0-18.0); Immature Granulocytes # (auto) 0.06 K/uL (0.01-0.20); Immature Granulocytes % (auto) 0.5 %; Lymphocytes # (auto) 1.51 K/uL (1.20-3.40); Lymphocytes % (auto) 12.3 %; Mean Corpuscular Hemoglobin 30.9 pg (25.0-34.0); Mean Corpuscular Hgb Conc 33.2 g/dL (32.0-36.0); Mean Platelet Volume 10.8 fL (9.4-12.4); Monocytes # (auto) 1.55 K/uL (0.11-0.59); Monocytes % (auto) 12.6 %; Neutrophils # (auto) 8.96 K/uL (1.40-6.50); Neutrophils % (auto) 72.7 %; Platelet Count 235 K/uL (130-400); RDW Coefficient of Variation 16.1 % (11.5-14.5); RDW Standard Deviation 54.9 fL (36.4-46.3); Red Blood Count 4.17 M/uL (4.70-6.10); White Blood Count 12.31 K/ul (4.8-10.8)
[2023-07-29 14:59] LABS: Albumin Level 3.5 gm/dl (3.4-5.0); BUN Creatinine Ratio 16.9 (10-20); Bilirubin,Total 0.4 mg/dl (0.2-1.0); Calcium 8.9 mg/dl (8.6-10.3); Creatinine Clr Calc Pharmacy 42.4 ml/min; Est GFR (African American) 44.6 ml/min; Est GFR (Non-African American) 38.4 ml/min; Globulin 3.4 gm/dl (2.5-4.0); Magnesium 1.8 mg/dl (1.7-2.4); Potassium 4.5 mmol/L (3.5-5.1); Total Protein 6.9 gm/dl (6.0-8.3)
[2023-07-29 15:08] LABS: INR 3.1 (0.9-1.1); Partial Thromboplastin Ratio 1.7; Partial Thromboplastin Time 48 Seconds (21-31); Prothrombin Time 31.9 Seconds (9.0-12.0)
--- NOTE | 2023-07-29 15:10 | Electrocardiogram Report ---
Test Reason : Blood Pressure : / mmHG Vent. Rate : 067 BPM Atrial Rate : 067 BPM P-R Int : 000 ms QRS Dur : 146 ms QT Int : 464 ms P-R-T Axes : 049 -22 155 degrees QTc Int : 490 ms Ventricular-paced rhythm Abnormal ECG When compared with ECG of 27-APR-2023 04:56, Vent. rate has decreased BY 12 BPM Confirmed by Sj Shea ([id number]) on 07/29/2023 3:10:32 PM Referred By: REFERRED SELF Confirmed By:Sj Shea
--- NOTE | 2023-07-29 15:51 | Ultrasound Report ---
US venous doppler LE RT CLINICAL HISTORY: likely hematoma but calf pain TECHNIQUE: Right lower extremity real-time compression venous ultrasound with Color Doppler imaging. Utilizing real-time ultrasonic imaging multiple real time high-resolution ultrasonic images with comp ression and noncompression maneuvers of the deep venous system in addition to color doppler imaging w ere performed from the common femoral vein through the proximal calf veins. COMPARISON: Comparison is made to lower extremity Doppler ultrasound 04/28/2023 FINDINGS/IMPRESSION: Currently there is normal compressibility of the deep venous system from the common femoral vein thro ugh the proximal calf veins. Minimal soft tissue edema is seen in the calf. ACT 112: Negative or not required by law. Electronically signed by: Brandon Flowers M.D. 07/29/2023 3:49 PM
--- NOTE | 2023-07-29 15:51 | Ultrasound Report ---
US extremity non-vascular ltd CLINICAL HISTORY: RLE calf pain, ecchymosis TECHNIQUE: Real-time grayscale sonographic images of the right calf were obtained. Comparison: None available at the time of this dictation. FINDINGS/IMPRESSION: Soft tissue edema is seen without acute abnormality. ACT 112: Negative or not required by law. Electronically signed by: Brandon Flowers M.D. 07/29/2023 3:50 PM
[2023-07-29] MEDS: FUROSEMIDE 40 MG/4 ML VIAL IV ONE (16:09)
[2023-07-29 17:42] LABS: Appearance Urine Clear (Clear); Bilirubin Urine Negative (Negative); Blood Urine Negative (Negative); Color Urine Yellow; Glucose Urine UA Negative (Negative); Ketones Urine Negative (Negative); Leukocyte Esterase Urine Negative (Negative); Nitrite Urine Negative (Negative); Protein Urine Negative (Negative); Specific Gravity Urine 1.007 (1.000-1.030); Urobilinogen Urine Negative (Negative)
--- NOTE | 2023-07-29 18:15 | History & Physical Report ---
Date of Service July 29, 2023 Assessment & Plan (1) Superficial bruising of lower leg: (2) Chronic anticoagulation: (3) Coronary artery disease: (4) CKD (chronic kidney disease), stage III: (5) Restless leg syndrome: (6) (HFpEF) heart failure with preserved ejection fraction: (7) History of atrial fibrillation: (8) History of aortic valve replacement: (9) History of mitral valve replacement: (10) Hypercholesterolemia: (11) Acute exacerbation of congestive heart failure: Plan 87 year old male with pertinent PMHx of CAD, A-fib, mechanical AVR, bovine MVR, CKD, HFpEF, HLD presenting due to leg pain: Leg Pain: - Superficial bruising of popliteal region, consistent with mild trauma in the setting of chronic anticoagulation - Venous Doppler negative for DVT Acute exacerbation of chronic HFpEF // CHF Exacerbation: - Patient minimally symptomatic but with significant weight gain and increased edema, CXR suggestive of some degree of fluid overload, likely to benefit from diuresis. - IV Lasix 40mg BID - Daily weights - Strict IOs - Fluid restriction 1800mL - Continue home meds: Sotalol, Spironolactone - Monitor kidney function with AM BMP - Consider augmentation of home CHF regimen, will need to review previous documentation to better understand previous med trials Mechanical Valve replacement // Chronic anticoagulation: - Target INR 2.5 - 3.5 - INR on admission 3.1, continue to monitor - Continue home Warfarin RLS: - Continue home Gabapentin/Ropinrole HLD: - Continue home atorvastatin Granulomatous disease of the lung: - Continue home prednisone ?Obstructive Lung Disease: - Consider PFTs Dispo: admit to med/surg with tele FEN/GI: HH, low sodium VTE ppx: Warfarin History of Present Illness Primary Care Provider: Clau Mederos MD 87 year old male with pertinent PMHx of CAD, A-fib, mechanical AVR, bovien MVR, CKD, HFpEF, HLD presenting due to leg pain. Patient was in a wheelchair, states he had his right leg up on a footrest, leg fell and he had minor trauma to the popliteal region. Nurse at his facility was concerned for DVT, pt subsequently sent to ED for evaluation. In ED, patient also noted to be wheezy, mildly short of breath with concern for CHF exacerbation. Patient notes feeling a bit wheezy but denies SOB, denies CP. Patient indicates that the staff at the [facility] weigh him daily, though he is unsure if his weight has been trending up - per chart review, patient is up roughly 15kg since last discharged in 05/12. Patient and also note worsening of LE edema. Patient denies excessive salt or fluid intake. ED Course: Venous doppler negative for DVT, shows mild soft tissue swelling. CXR with cardiomegaly and mild pulmonary edema. BNP 304. Cr 1.6, appears to be roughly at baseline. INR 3.1, target 2.5-3.5 Allergies Allergy/AdvReac Type Severity Reaction Status Date / Time cyclobenzaprine Allergy Intermediate ON THE Verified 07/29/23 16:27 [From Flexeril] [facility] MED LIST Penicillins Allergy Intermediate RASH Verified 07/29/23 16:27 celecoxib [From Celebrex] Allergy Unknown ON THE Verified 07/29/23 16:27 [facility] MED LIST simvastatin Allergy Unknown ON THE Verified 07/29/23 16:27 [facility] MED LIST Home Medications Medication Instructions Recorded Confirmed Type sotalol 80 mg tablet 40 mg PO QAM 11/12/19 07/29/23 History atorvastatin 20 mg tablet 20 mg PO HS #90 tabs 01/01/23 07/29/23 Rx magnesium oxide 400 mg PO DAILY 01/01/23 07/29/23 History spironolactone 25 mg tablet 12.5 mg PO BID 01/01/23 07/29/23 History ropinirole 0.25 mg tablet 0.25 mg PO HS #90 tabs 01/08/23 07/29/23 Rx ascorbic acid (vitamin C) 500 mg 500 mg PO DAILY 04/09/23 07/29/23 History tablet (Vitamin C) folic acid 400 mcg tablet 0.4 mg PO DAILY 04/09/23 07/29/23 History acetaminophen 325 mg tablet 650 mg (2 x 325 mg) PO Q4H PRN #0 04/18/23 07/29/23 Rx tabs gabapentin 100 mg capsule 100 mg PO BID #0 caps 04/18/23 07/29/23 Rx sennosides 8.6 mg tablet (Senokot) 17.2 mg (2 x 8.6 mg) PO QAM #0 tabs 04/18/23 07/29/23 Rx umeclidinium 62.5 mcg-vilanterol 1 inh inhalation DAILY #0 ea 04/18/23 07/29/23 Rx 25 mcg/actuation powdr for inhalation (Anoro Ellipta) melatonin 3 mg tablet 3 mg PO HS 04/25/23 07/29/23 History omega-3 fatty acids 1,000 mg 2,000 mg PO DAILY 04/25/23 07/29/23 History capsule pantoprazole 40 mg tablet,delayed 40 mg PO DAILYBB 04/25/23 07/29/23 History release polyethylene glycol 3350 17 17 g PO DAILY 04/25/23 07/29/23 History gram/dose oral powder (Miralax) warfarin 4 mg tablet 4 mg PO 4XWK 04/25/23 07/29/23 History warfarin 6 mg tablet 3 mg PO 3XWK 04/25/23 07/29/23 History furosemide 40 mg tablet 40 mg PO QAM 07/29/23 07/29/23 History menthol 0.44 %-zinc oxide 20.6 % 1 applic topical QS 07/29/23 07/29/23 History topical ointment (Calmoseptine) prednisone 10 mg tablet 10 mg PO DAILY 07/29/23 07/29/23 History vit C 250 mg-vit E 90 mg-zinc 40 2 tab PO DAILY 07/29/23 07/29/23 History mg-copper 1 [id number] capsule (PreserVision AREDS-2) vitamin B complex 1 tab PO DAILY 07/29/23 07/29/23 History Past Med/Surg History Medical History Chronic anticoagulation CKD (chronic kidney disease), stage III Macular degeneration GETS SHOTS IN EYES FOR TREATMENT Q8-10 WEEKS Restless leg syndrome History of cardioversion History of atrial fibrillation Hypertension Aortic valve disorder Atrial flutter BPH with obstruction/lower urinary tract symptoms Coronary artery disease Nonobstructive on [facility] 2012 Ventral hernia Moderate obstructive sleep apnea Pseudogout Surgical History History of left cataract surgery 11/19/2019. propofol given. History of colonoscopy History of tooth extraction History of inguinal hernia repair LEFT X 2 History of vasectomy History of mitral valve replacement 4 YEARS AGO ([facility]ICE T[facility]) History of aortic valve replacement AT AGE 58 ([facility]ICE TAYLOR) Family History Sister Heart disease Denies family history of Ovarian cancer Prostate cancer Myocardial infarction Breast cancer Colorectal cancer Social History Smoking Status: Never smoker Second Hand Exposure: No; Do You Dip or Chew Tobacco: No; Hx Alcohol Use: Yes Alcohol type: wine Alcohol Intake Frequency: 2-3 x/Week Alcohol Intake Frequency Comment: 2 glasses of wine per week Hx Substance Use: No Preferred Language: Persian Communication Ability: Impaired Visual Impairment: Diminished Hearing Ability: Normal Chairman Required: No Beliefs That Will Affect Care: None marital status: Current Living Situation: Spouse current occupational status: retired 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 No acute distress, resting comfortably in bed. Cardiac: Regular rate and rhythm, no murmurs appreciated Respiratory:Mild wheezes appreciated on auscultation, No increased work of breathing, no crackles Abdominal: Soft, non-tender, non-distended. Extremities: Bilateral LE pitting edema to knee level, right popliteal region with hematoma, firm to touch, mildly TTP Psych: AOx3, mood affect congruence Results & Data Results & Data Vital Signs (Past 12 Hours) Vital Signs Temp Pulse Resp BP Pulse Ox O2 Del Method 07/29/23 17:50 81 18 94 07/29/23 17:40 73 19 95 07/29/23 17:30 72 14 96 07/29/23 17:20 73 16 94 07/29/23 17:10 70 21 96 07/29/23 17:00 70 21 96 07/29/23 17:00 128/79 07/29/23 16:50 69 18 95 07/29/23 16:40 70 18 94 07/29/23 16:30 69 21 95 07/29/23 16:23 65 07/29/23 16:20 69 22 94 07/29/23 16:15 65 23 95 07/29/23 14:03 98 Room Air 07/29/23 13:17 36.5 C 78 18 139/78 97 Room Air Supervising Physician Co-Signing Physician Notes Attending Physician Supervision Note: I independently interviewed and examined the patient and verified the talavera history and physical, reviewed labs and image studies and agree with findings and care plan noted above. Resident Activity Tracking Resident Involvement: Resident Care Provided Care Provided: Adult Hospital Medicine (1) Superficial bruising of lower leg Encounter type: initial encounter Laterality: right Qualified Code(s): S80.11XA - Contusion of right lower leg, initial encounter (4) CKD (chronic kidney disease), stage III Chronic kidney disease stage 3 subtype: unspecified whether 3a or 3b Qualified Code(s): N18.30 - Chronic kidney disease, stage 3 unspecified (11) Acute exacerbation of congestive heart failure Heart failure type: unspecified Qualified Code(s): I50.9 - Heart failure, unspecified
[2023-07-29] MEDS ORDERED: POLYETHYLENE (MIRALAX) 17 GM PACK PO PRN (21:53)
[2023-07-29] MEDS: SPIRONOLACTONE 12.5 MG TAB PO SCH (23:49)
[2023-07-29] MEDS: GABAPENTIN 100 MG CAP PO SCH (23:50)
[2023-07-29] MEDS: rOPINIRole HCL 0.25 MG TABLET PO SCH (23:50)
[2023-07-29] MEDS: ATORVASTATIN 20 MG TAB PO SCH (23:50)
[2023-07-30] MEDS: ACETAMINOPHEN 325 MG TAB PO PRN (04:33)
[2023-07-30] MEDS: PANTOprazole 40 MG TAB PO SCH (05:34)
--- NOTE | 2023-07-30 07:00 | Hospitalist Progress Note ---
Date of Service July 30, 2023 Assessment & Plan (1) Superficial bruising of lower leg: (2) Chronic anticoagulation: (3) Coronary artery disease: (4) CKD (chronic kidney disease), stage III: (5) Restless leg syndrome: (6) (HFpEF) heart failure with preserved ejection fraction: (7) History of atrial fibrillation: (8) History of aortic valve replacement: (9) History of mitral valve replacement: (10) Hypercholesterolemia: (11) Acute exacerbation of congestive heart failure: Plan 87 year old male with pertinent PMHx of CAD, A-fib, mechanical AVR, bovine MVR, CKD, HFpEF, HLD presenting due to leg pain: Leg Pain: - Superficial bruising of popliteal region, consistent with mild trauma in the setting of chronic anticoagulation - Venous Doppler negative for DVT HFpEF // CHF Exacerbation: - Patient minimally symptomatic but with continued evidence of excess fluid on exam - Continue IV Lasix 40mg BID through today, tentative plan to transition to PO tomorrow - Daily weights - Strict IOs - Fluid restriction 1800mL - Continue home meds: Sotalol, Spironolactone - AM Cr 1.56 - Monitor kidney function with AM BMP - Consider augmentation of home CHF regimen with ACEi/ARB - Ferritin >50, will defer Venofer Mechanical Valve replacement // Chronic anticoagulation: - Target INR 2.5 - 3.5 - AM INR 2.3, continue to monitor - Continue home Warfarin RLS: - Continue home Gabapentin/Ropinrole HLD: - Continue home atorvastatin Granulomatous disease of the lung: - Continue home prednisone ?Obstructive Lung Disease: - Questionable history of obstructive lung disease, continue home Anoro Ellipta, consider PFTs in the outpatient setting Dispo: PT/OT evaluations FEN/GI: HH, low sodium VTE ppx: Warfarin Admission and Anticipated Discharge Date Admission Date: July 29, 2023 Supervising Physician Co-Signing Physician Notes I personally examined the patient and verified all talavera points of history and exam, discussed case, and agree with decision making with Dr Bosch Feeling better. Weeks but was living at the [facility] prior to admission. Breathing not quite back to baseline. Vitals noted, in general he is awake and alert fatigued but no distress. HEENT normocephalic atraumatic mucous membranes moist. Lungs faint rales base right faint wheeze mid left. No accessory muscle use no conversational dyspnea. Quite weak. Acute on chronic diastolic CHF exacerbationdiuresis, afterload reduction, hopefully return to SNF soon. Otherwise as above. Anticoagulated Subjective Pt evaluated at bedside this morning, notes that he feels a bit wheezy but denies SOB, chest pain. Continues to endorse RLE pain in popliteal region, notes LE edema seems to be improving. Review of Systems Review of Systems: as per HPI Physical Exam Physical Exam: General: Alert and oriented. No acute distress, resting comfortably in bed. Cardiac: Regular rate and rhythm, no murmurs appreciated Respiratory:Mild crackles in right lung base, No increased work of breathing Abdominal: Soft, non-tender, non-distended. Extremities: Bilateral LE pitting edema to calf level, right popliteal region with hematoma, firm to touch, mildly TTP Psych: AOx3, mood affect congruence Results & Data Results & Data Vital Signs (Past 12 Hours) Vital Signs Temp Pulse Pulse Resp BP BP Pulse Ox 07/30/23 02:57 36.4 C L 68 18 125/79 95 07/30/23 00:32 76 07/29/23 23:59 07/29/23 23:59 36.7 C 70 20 155/85 H 94 07/29/23 23:07 36.7 C 70 20 155/85 H 94 07/29/23 22:20 73 17 90 07/29/23 22:10 72 17 93 07/29/23 22:00 73 17 91 07/29/23 22:00 127/77 07/29/23 21:56 14 07/29/23 21:50 77 17 90 07/29/23 21:40 74 21 93 07/29/23 21:30 75 20 92 07/29/23 21:20 75 20 92 07/29/23 21:10 74 20 93 07/29/23 21:00 75 20 92 07/29/23 21:00 129/69 07/29/23 20:50 75 19 92 07/29/23 20:40 74 19 93 07/29/23 20:30 77 17 94 07/29/23 20:20 60 18 94 07/29/23 20:15 72 07/29/23 20:10 72 19 94 07/29/23 20:00 73 18 94 07/29/23 19:50 72 18 95 07/29/23 19:40 75 18 93 07/29/23 19:30 72 19 07/29/23 19:20 73 19 07/29/23 19:10 72 21 O2 Del Method 07/30/23 02:57 Room Air 07/30/23 00:32 07/29/23 23:59 Room Air 07/29/23 23:59 Room Air 07/29/23 23:07 Room Air 07/29/23 22:20 07/29/23 22:10 07/29/23 22:00 07/29/23 22:00 07/29/23 21:56 07/29/23 21:50 07/29/23 21:40 07/29/23 21:30 07/29/23 21:20 07/29/23 21:10 07/29/23 21:00 07/29/23 21:00 07/29/23 20:50 07/29/23 20:40 07/29/23 20:30 07/29/23 20:20 07/29/23 20:15 07/29/23 20:10 07/29/23 20:00 07/29/23 19:50 07/29/23 19:40 07/29/23 19:30 07/29/23 19:20 07/29/23 19:10 Resident Activity Tracking Resident Involvement: Resident Care Provided Care Provided: Adult Hospital Medicine (1) Superficial bruising of lower leg Encounter type: initial encounter Laterality: right Qualified Code(s): S80.11XA - Contusion of right lower leg, initial encounter (4) CKD (chronic kidney disease), stage III Chronic kidney disease stage 3 subtype: unspecified whether 3a or 3b Qualified Code(s): N18.30 - Chronic kidney disease, stage 3 unspecified (11) Acute exacerbation of congestive heart failure Heart failure type: unspecified Qualified Code(s): I50.9 - Heart failure, unspecified
[2023-07-30 08:09] LABS: Albumin Globulin Ratio 1.1 (0.9-2); Albumin Level 3.4 gm/dl (3.4-5.0); BUN Creatinine Ratio 18.6 (10-20); Bilirubin,Total 0.6 mg/dl (0.2-1.0); Creatinine Clr Calc Pharmacy 41.9 ml/min; Est GFR (African American) 45.9 ml/min; Est GFR (Non-African American) 39.6 ml/min; Globulin 3.2 gm/dl (2.5-4.0); Magnesium 1.9 mg/dl (1.7-2.4); Potassium 3.8 mmol/L (3.5-5.1); Total Protein 6.6 gm/dl (6.0-8.3)
[2023-07-30 08:13] LABS: INR 2.3 (0.9-1.1); Prothrombin Time 23.7 Seconds (9.0-12.0)
[2023-07-30] MEDS: MAGNESIUM OXIDE 400 MG TAB PO SCH (08:23)
[2023-07-30] MEDS: SENNA 8.6 MG TAB PO SCH (08:23)
[2023-07-30] MEDS: SOTALOL HCL 80 MG TAB PO SCH (08:23)
[2023-07-30] MEDS: predniSONE 10 MG TABLET PO SCH (08:24)
[2023-07-30] MEDS: FUROSEMIDE 40 MG/4 ML VIAL IV SCH (08:24)
[2023-07-30] MEDS: POLYETHYLENE (MIRALAX) 17 GM PACK PO SCH (08:24)
[2023-07-30 10:06] LABS: Ferritin 88.5 ng/ml (8-388)
[2023-07-30] MEDS: UMECLIDINIUM/VILANTEROL 62.5/25MCG 7 PUFFS/INHALER INH SCH (13:50)
[2023-07-30] MEDS: WARFARIN SOD 3 MG TAB PO SCH (16:55)
--- NOTE | 2023-07-30 17:53 | Billing Data ---
Date of Service July 30, 2023 Coding Level of Care Code 10934 SUB INP/OBS CARE MIN
[2023-07-30] MEDS: ARTIFICIAL TEARS OPB PRN (20:11)
--- NOTE | 2023-07-31 07:32 | Hospitalist Progress Note ---
Date of Service July 31, 2023 Assessment & Plan (1) Superficial bruising of lower leg: (2) Chronic anticoagulation: (3) Coronary artery disease: (4) CKD (chronic kidney disease), stage III: (5) Restless leg syndrome: (6) (HFpEF) heart failure with preserved ejection fraction: (7) History of atrial fibrillation: (8) History of aortic valve replacement: (9) History of mitral valve replacement: (10) Hypercholesterolemia: (11) Acute exacerbation of congestive heart failure: Plan 87 year old male with pertinent PMHx of CAD, A-fib, mechanical AVR, bovine MVR, CKD, HFpEF, HLD presenting due to leg pain: Leg Pain: - Superficial bruising of popliteal region, consistent with mild trauma in the setting of chronic anticoagulation - Venous Doppler negative for DVT HFpEF // CHF Exacerbation: - Clinical exam suggestive of improving fluid balance, AM Cr with slight bump to 1.67 - Revert to home furosemide, 40mg daily - Daily weights - Strict IOs - Fluid restriction 1800mL - Continue home meds: Sotalol, Spironolactone - Start Losartan 25mg daily - Ferritin >50, will defer Venofer Mechanical Valve replacement // Chronic anticoagulation: - Target INR 2.5 - 3.5 - AM INR 1.7, continue to monitor - Continue home Warfarin RLS: - Continue home Gabapentin/Ropinrole HLD: - Continue home atorvastatin Granulomatous disease of the lung: - Continue home prednisone ?Obstructive Lung Disease: - Questionable history of obstructive lung disease, continue home Anoro Ellipta, consider PFTs in the outpatient setting Dispo: [facility] FEN/GI: HH, low sodium VTE ppx: Warfarin Admission and Anticipated Discharge Date Admission Date: July 29, 2023 Supervising Physician Co-Signing Physician Notes I personally examined the patient and verified all talavera points of history and exam, discussed case, and agree with decision making with Dr Bosch feeling better, breathing better, would like to go back to the [facility]. Informed by case management that even though that is where he lives, they will not take him back until authorization from insurance. Vitals noted, in general he is awake and alert fatigued but no distress. HEENT normocephalic atraumatic mucous membranes moist. lungs clear to auscultation bilaterally no rales rhonchi or wheezes good effort no accessory muscle use on room air Acute on chronic diastolic CHF exacerbationdiuresis, afterload reduction (follow basic metabolic panel closely as an outpatient), hopefully return to SNF soonunfortunate that his home is requiring an insurance Auth prior to his aline lity to return there. Otherwise as above. Anticoagulated Subjective Pt evaluated at bedside this morning, notes that he feels a bit wheezy but de nies SOB, chest pain. Continues to endorse RLE pain in popliteal region, notes LE edema with ongoing improvement. Review of Systems Review of Systems: as per HPI Physical Exam Physical Exam: General: Alert and oriented. No acute distress, resting comfortably in bed. Cardiac: Regular rate and rhythm, no murmurs appreciated Respiratory:Lungs clear to auscultation, No increased work of breathing Abdominal: Soft, non-tender, non-distended. Extremities: Bilateral LE pitting edema to mid-calf level, right popliteal region with hematoma, firm to touch, mildly TTP Psych: AOx3, mood affect congruence Results & Data Results & Data Vital Signs (Past 12 Hours) Vital Signs Temp Pulse Pulse Resp BP Pulse Ox O2 Del Method 07/31/23 07:13 75 07/31/23 04:12 37.0 C 71 20 125/69 92 Room Air 07/31/23 00:09 36.6 C 67 20 118/73 92 Room Air 07/30/23 23:56 72 07/30/23 20:32 36.7 C 74 20 150/70 H 93 Room Air Resident Activity Tracking Resident Involvement: Resident Care Provided Care Provided: Adult Hospital Medicine (1) Superficial bruising of lower leg Encounter type: initial encounter Laterality: right Qualified Code(s): S80.11XA - Contusion of right lower leg, initial encounter (4) CKD (chronic kidney disease), stage III Chronic kidney disease stage 3 subtype: unspecified whether 3a or 3b Qualified Code(s): N18.30 - Chronic kidney disease, stage 3 unspecified (11) Acute exacerbation of congestive heart failure Heart failure type: unspecified Qualified Code(s): I50.9 - Heart failure, unspecified
[2023-07-31 09:09] LABS: BUN Creatinine Ratio 22.8 (10-20); Calcium 8.9 mg/dl (8.6-10.3); Creatinine Clr Calc Pharmacy 38.9 ml/min; Est GFR (African American) 42.3 ml/min; Est GFR (Non-African American) 36.5 ml/min; Magnesium 1.9 mg/dl (1.7-2.4); Potassium 3.5 mmol/L (3.5-5.1)
[2023-07-31 09:13] LABS: INR 1.7 (0.9-1.1); Prothrombin Time 18.1 Seconds (9.0-12.0)
--- NOTE | 2023-07-31 16:32 | Billing Data ---
Date of Service July 31, 2023 Coding Level of Care Code 57737 SUB INP/OBS CARE
[2023-07-31] MEDS: WARFARIN SOD 4 MG TAB PO SCH (16:55)
--- NOTE | 2023-08-01 07:44 | Hospitalist Progress Note ---
Date of Service August 01, 2023 Assessment & Plan (1) Superficial bruising of lower leg: (2) Chronic anticoagulation: (3) Coronary artery disease: (4) CKD (chronic kidney disease), stage III: (5) Restless leg syndrome: (6) (HFpEF) heart failure with preserved ejection fraction: (7) History of atrial fibrillation: (8) History of aortic valve replacement: (9) History of mitral valve replacement: (10) Hypercholesterolemia: (11) Acute exacerbation of congestive heart failure: Plan 87 year old male with pertinent PMHx of CAD, A-fib, mechanical AVR, bovine MVR, CKD, HFpEF, HLD presenting due to leg pain: Leg Pain: - Superficial bruising of popliteal region, consistent with mild trauma in the setting of chronic anticoagulation - Venous Doppler negative for DVT HFpEF // CHF Exacerbation: - Clinical exam suggestive of improving fluid balance, AM Cr with slight bump to 1.67 - Revert to home furosemide, 40mg daily - Daily weights - Strict IOs - Fluid restriction 1800mL - Continue home meds: Sotalol, Spironolactone - Start Losartan 25mg daily - Ferritin >50, will defer Venofer Mechanical Valve replacement // Chronic anticoagulation: - Target INR 2.5 - 3.5 - AM INR 1.7, continue to monitor - Continue home Warfarin RLS: - Continue home Gabapentin/Ropinrole HLD: - Continue home atorvastatin Granulomatous disease of the lung: - Continue home prednisone ?Obstructive Lung Disease: - Questionable history of obstructive lung disease, continue home Anoro Ellipta, consider PFTs in the outpatient setting Dispo: [facility] FEN/GI: HH, low sodium VTE ppx: Warfarin Admission and Anticipated Discharge Date Admission Date: July 29, 2023 Subjective Pt evaluated at bedside this morning, notes that he feels a bit wheezy but denies SOB, chest pain. Continues to endorse RLE pain in popliteal region, notes LE edema with ongoing improvement. Review of Systems Review of Systems: as per HPI Physical Exam Physical Exam: General: Alert and oriented. No acute distress, resting comfortably in bed. Cardiac: Regular rate and rhythm, no murmurs appreciated Respiratory:Lungs clear to auscultation, No increased work of breathing Abdominal: Soft, non-tender, non-distended. Extremities: Bilateral LE pitting edema to mid-calf level, right popliteal region with hematoma, firm to touch, mildly TTP Psych: AOx3, mood affect congruence Results & Data Results & Data Vital Signs (Past 12 Hours) Vital Signs Temp Pulse Pulse Resp BP BP Pulse Ox 08/01/23 07:22 63 08/01/23 03:13 36.7 C 64 20 123/63 94 08/01/23 02:44 08/01/23 02:39 74 07/31/23 23:09 36.8 C 84 20 137/64 91 O2 Del Method 08/01/23 07:22 08/01/23 03:13 Room Air 08/01/23 02:44 Room Air 08/01/23 02:39 07/31/23 23:09 Room Air (1) Superficial bruising of lower leg Encounter type: initial encounter Laterality: right Qualified Code(s): S80.11XA - Contusion of right lower leg, initial encounter (4) CKD (chronic kidney disease), stage III Chronic kidney disease stage 3 subtype: unspecified whether 3a or 3b Qualified Code(s): N18.30 - Chronic kidney disease, stage 3 unspecified (11) Acute exacerbation of congestive heart failure Heart failure type: unspecified Qualified Code(s): I50.9 - Heart failure, unspecified
[2023-08-01 08:10] LABS: BUN Creatinine Ratio 22.8 (10-20); Calcium 9.1 mg/dl (8.6-10.3); Creatinine Clr Calc Pharmacy 37.9 ml/min; Est GFR (African American) 41.1 ml/min; Est GFR (Non-African American) 35.5 ml/min; Potassium 3.6 mmol/L (3.5-5.1)
[2023-08-01 08:27] LABS: INR 1.6 (0.9-1.1); Prothrombin Time 16.9 Seconds (9.0-12.0)
[2023-08-01] MEDS: LOSARTAN POTASSIUM 25 MG TAB PO SCH (09:14)
[2023-08-01] MEDS: FUROSEMIDE 40 MG TAB PO SCH (09:14)
--- NOTE | 2023-08-01 11:42 | Discharge Summary ---
Date of Service August 01, 2023 Admission HPI Per Admitting Provider 87 year old male with pertinent PMHx of CAD, A-fib, mechanical AVR, bovien MVR, CKD, HFpEF, HLD presenting due to leg pain. Patient was in a wheelchair, states he had his right leg up on a footrest, leg fell and he had minor trauma to the popliteal region. Nurse at his facility was concerned for DVT, pt subsequently sent to ED for evaluation. In ED, patient also noted to be wheezy, mildly short of breath with concern for CHF exacerbation. Patient notes feeling a bit wheezy but denies SOB, denies CP. Patient indicates that the staff at the [facility] weigh him daily, though he is unsure if his weight has been trending up - per chart review, patient is up roughly 15kg since last discharged in 05/12. Patient and also note worsening of LE edema. Patient denies excessive salt or fluid intake. ED Course: Venous doppler negative for DVT, shows mild soft tissue swelling. CXR with cardiomegaly and mild pulmonary edema. BNP 304. Cr 1.6, appears to be roughly at baseline. INR 3.1, target 2.5-3.5 Admission Exam Per Admitting Provider General: Alert and oriented. No acute distress, resting comfortably in bed. Cardiac: Regular rate and rhythm, no murmurs appreciated Respiratory:Mild wheezes appreciated on auscultation, No increased work of breathing, no crackles Abdominal: Soft, non-tender, non-distended. Extremities: Bilateral LE pitting edema to knee level, right popliteal region with hematoma, firm to touch, mildly TTP Psych: AOx3, mood affect congruence Principal Diagnosis CHF exacerbation Discharge Exam General: Alert and oriented. No acute distress, resting comfortably in bed. Cardiac: Regular rate and rhythm, no murmurs appreciated Respiratory:Lungs clear to auscultation, No increased work of breathing Abdominal: Soft, non-tender, non-distended. Extremities: Bilateral LE pitting edema to mid-calf level, right popliteal region with hematoma, firm to touch, mildly TTP Psych: AOx3, mood affect congruence Discharge Data Allergies Allergy/AdvReac Type Severity Reaction Status Date / Time cyclobenzaprine Allergy Intermediate ON THE Verified 07/29/23 16:27 [From Flexeri] [facility] LIST Penicillins Allergy Intermediate RASH Verified 07/29/23 16:27 celecoxib [From Celebrex] Allergy Unknown ON THE Verified 07/29/23 16:27 [facility] MED LIST simvastatin Allergy Unknown ON THE Verified 07/29/23 16:27 [facility] MED LIST Consultations 07/29/23 16:28 ED Decision to Admit Stat Ordered Studies 07/29/23 13:45 US extremity non-vascular ltd Stat US venous doppler LE RT Stat Hospital Course (1) Superficial bruising of lower leg: (2) Chronic anticoagulation: (3) Coronary artery disease: (4) CKD (chronic kidney disease), stage III: (5) Restless leg syndrome: (6) (HFpEF) heart failure with preserved ejection fraction: (7) History of atrial fibrillation: (8) History of aortic valve replacement: (9) History of mitral valve replacement: (10) Hypercholesterolemia: (11) Acute exacerbation of congestive heart failure: Plan 87 year old male with pertinent PMHx of CAD, A-fib, mechanical AVR, bovine MVR, CKD, HFpEF, HLD presented due to leg pain: Leg Pain: - Superficial bruising of popliteal region, consistent with mild trauma in the setting of chronic anticoagulation - Venous Doppler negative for DVT HFpEF // CHF Exacerbation: - s/p diuresis with Lasix - Check daily weights - On discharge, continue home dose of furosemide, 40mg daily - Continue home Sotalol, Spironolactone - Started on Losartan 25mg daily for afterload reduction - Please obtain BMP 08/03/23 to monitor kidney function Mechanical Valve replacement // Chronic anticoagulation: - Target INR 2.5 - 3.5 - INR 1.6 on morning of discharge - Continue home Warfarin, repeat INR/titrate warfarin as needed RLS: - Continue home Gabapentin/Ropinirole HLD: - Continue home atorvastatin Granulomatous disease of the lung: - Continue home prednisone ?Obstructive Lung Disease: - Questionable history of obstructive lung disease, continue home Anoro Ellipta, consider PFTs in the outpatient setting Total Time Total Time Spent Total Time Spent (In Minutes): <30 Discharge Plan Discharge Items Patient Disposition: Transfer [facility] Reason For Visit: LEG PAIN Discharge Diagnosis: CHF exacerbation Activity: Resume your previous activity Non-emergency contact: Primary Care Provider Call non-emergency contact if: you have any medication questions Follow-up/Referrals: Clau Mederos MD [Primary Care Provider] - Diet: Heart Healthy and Low Sodium (2gm) Addtl Attending Provider Instructions: You were admitted to the hospital due to CHF exacerbation. You were treated with a diuretic medication called Lasix to help remove excess fluid. Upon discharge, please return to your home dose of 40mg once daily of Lasix. You were also started on a medication called Losartan, please take 25mg tab once daily. You will also need your labs checked within a few days of discharge - this will be communicated to your PCP in your discharge summary. It is very important that you weight yourself daily as significant increases in day-to-day weight are most likely due to fluid overload. Adhering to a low sodium diet is also important. A discharge summary will be sent to your primary care physician to ensure continuity of care. Please bring this discharge summary with you to your next office appointment so that your provider can review it at that time. Medications: Your medication list has been reviewed and reconciled upon discharge to ensure accuracy and continuity of care. An updated list of all your medications is included with your hospital discharge paperwork. Please review this list closely and make note of any changes to your medications. New Medications: Losartan - please take 1 tab daily. Please continue your other home medications as previously directed. Follow up appointments: - Make a follow up appointment with your PCP within the next week. It is very important that you follow up with them shortly after discharge from the hospital. - Keep all of your follow up appointments as already scheduled. If you cannot make an appointment, notify your provider. CONTACT YOUR PRIMARY CARE PROVIDER if you experience any of the following: - Difficulty following your treatment plan - Difficulty taking any of your medications CALL 911 OR GO TO THE EMERGENCY DEPARTMENT if you experience any of the following: - Sudden, severe abdominal pain or nausea/vomiting - Severe chest pain or chest pain that radiates to your jaw or arm - Sudden, severe shortness of breath or difficulty breathing Pending Studies at Discharge: No Stand-Alone Forms: My [facility] Skilled Items Patient informed of condition?: Yes DNR: Yes Discharge Level of Care: Skilled Communicable Disease: No Discharge Prognosis: Improving Lines: None Urinary Catheter: No Medications and DC Order Prescriptions: New losartan 25 mg Tablet 25 mg PO QAM 30 Days Qty: 30 0RF Continued ropinirole 0.25 mg tablet 0.25 mg PO HS Qty: 90 0RF magnesium oxide 400 mg magnesium capsule 400 mg PO DAILY spironolactone 25 mg tablet 12.5 mg PO BID atorvastatin 20 mg tablet 20 mg PO HS Qty: 90 3RF sotalol 80 mg Tablet 40 mg PO QAM folic acid 400 mcg Tablet 0.4 mg PO DAILY ascorbic acid (vitamin C) [Vitamin C] 500 mg Tablet 500 mg PO DAILY sennosides [Senokot] 8.6 mg Tablet 17.2 mg PO QAM Qty: 0 0RF acetaminophen 325 mg Tablet 650 mg PO Q4H PRNQty: 0 0RF gabapentin 100 mg Capsule 100 mg PO BID Qty: 0 0RF Anoro Ellipta 62.5-25 mcg/actuation Blister With Device 1 inh inhalation DAILY Qty: 0 0RF omega-3 fatty acids 1,000 mg Capsule 2,000 mg PO DAILY melatonin 3 mg Tablet 3 mg PO HS warfarin 4 mg Tablet 4 mg PO [id number] Rx Instructions: TAKES TUES, THURS, SAT & SUN. warfarin 6 mg Tablet 3 mg PO [id number] Rx Instructions: TAKES MON, WED, & FRI. pantoprazole 40 mg Tablet,Delayed Release (Dr/Ec) 40 mg PO DAILYBB polyethylene glycol 3350 [Miralax] 17 gram/dose Powder 17 g PO DAILY prednisone 10 mg tablet 10 mg PO DAILY vitamin B complex Tablet 1 tab PO DAILY menthol-zinc oxide [Calmoseptine] 0.44-20.6 % Ointment 1 applic TOPICAL QS PreserVision AREDS-2 250-90-40-1 mg Capsule 2 tab PO DAILY furosemide 40 mg tablet 40 mg PO QAM Discharge Orders: Discharge Order (Routine); Ordered 08/01/23 Ordered By: Tomer Bosch Admission Data Admit Date/Time: 07/29/23 17:52 Attending Provider: Rusty Cheng Admit Provider: Tomer Bosch Primary Care Provider: Clau Mederos Other Providers: Woody Raphael Other Interventions: Discharge Summary Assessment (RN) Last Done: 08/01/23 14:31 Supervising Physician Co-Signing Physician Notes I personally examined the patient and verified all [place] points of history and exam, discussed case, and agree with decision making with Dr Bosch Feels good. Breathing feels fine. Feels up to [facility]. Vitals noted, in general he is awake and alert fatigued but no distress. HEENT normocephalic atraumatic mucous membranes moist. lungs clear to auscultation bilaterally no rales rhonchi or wheezes good effort no accessory muscle use on room air Acute on chronic diastolic CHF exacerbationdiuresis, afterload reduction (follow basic metabolic panel closely as an outpatient), Return to SNF today. Basic metabolic panel and PT/INR on or around Sunday-08/02 Anticoagulated Resident Activity Tracking Resident Involvement: Resident Care Provided Care Provided: Adult Hospital Medicine
--- NOTE | 2023-08-01 19:07 | Billing Data ---
Date of Service August 01, 2023 Coding Level of Care Code 05273 IN/OBS DISCH 30 MIN/LESS
== END 2023-08-01 15:12 | DRG 291 ==
LOC: ED 13:11 → SUATTDRO 17:52 → EDINP 17:52 → 2N 21:53